=== PATIENT | female | born 1955 | race Caucasian/White ===

== ENCOUNTER → 2017-07-31 14:54 | Outpatient (CLI) | payer OTHER, SELFPAY ==
[2017-08-05 11:59] LABS: HPV Reflexed? NOT INDICATED
== END ==
PROVIDERS: Visit Provider Obstetrics & Gynecology
DX: Z12.4 Encounter for screening for malignant neoplasm of cervix (principal)
CPT/HCPCS: 88175; G0145

== ENCOUNTER → 2018-08-25 14:06 | Outpatient (CLI) | payer OTHER, SELFPAY ==
[2017-09-17 09:19] VITALS: BMI 36.9
[2018-08-31 15:28] LABS: HPV Reflexed? NOT INDICATED
== END ==
PROVIDERS: Visit Provider Obstetrics & Gynecology
DX: Z12.4 Encounter for screening for malignant neoplasm of cervix (principal)
CPT/HCPCS: 88175; G0145

== ENCOUNTER → 2018-09-15 07:15 | Outpatient (CLI) | payer OTHER, SELFPAY ==
--- NOTE | 2018-09-15 07:21 | BI_ITS ---
MAMMOGRAPHY - BILATERAL SCREENING REASON FOR EXAM: Female, 62 years old. Routine annual screening examination. PERTINENT HISTORY: Grandmother with breast cancer. TECHNIQUE: Digital bilateral breast arnaldo (3D mammographic acquisition) in the CC and MLO projections. 2-D mediolateral oblique (MLO) and craniocaudad (CC) views of both breasts were obtained. CAD: Full Field Digital Mammography with Computer Added Detection was performed. COMPARISON: Comparison is made with prior study dated April 14, 2017 and April 02, 2016. FINDINGS: Breast Composition: There are scattered areas of fibroglandular density. There are no dominant masses or suspicious calcifications. No other significant abnormalities are identified. There has been no significant change since the prior study. BI/SCREENING MAMM (CAD), BILAT IMPRESSION: Stable bilateral screening mammogram. Yearly follow-up mammogram recommended. (A) ASSESSMENT CATEGORY: BIRADS Category 1: Negative. A letter regarding these results will be sent to the patient by the facility within 30 days. Approximately 10% of breast cancers are not detected by mammography. A normal mammogram should not delay biopsy of a clinically suspicious abnormality. [id number] Electronically Signed: Anthony Luna, at 12:36 EDT , Service support ,
--- NOTE | 2018-09-15 08:17 | BD_ITS ---
STUDY: DUAL ENERGY X-RAY ABSORPTIOMETRY / DXA REASON FOR EXAM: Female, 62 years old. The patient is postmenopausal. TECHNIQUE: Bone Mineral Density (BMD) measurements of lumbar spine and bilateral hips were obtained. COMPARISON: None. FINDINGS: Lumbar Spine (L1-L4): g/cm2 (1.243) / T-score (0.5) / Z-score (1.9) Findings are suggestive of normal bone density with a low fracture risk. Left Femur Total: g/cm2 (0.936) / T-score (-0.6) / Z-score (0.4) Left Femoral Neck: g/cm2 (0.801) / T-score (-1.7) / Z-score (-0.4) Right Femur Total: g/cm2 (0.933) / T-score (-0.6) / Z-score (0.4) Right Femoral Neck: g/cm2 (0.835) / T-score (-1.5) / Z-score (-0.1) BD/Dexa Bone Density Study IMPRESSION: The patient is considered osteopenic as outlined below according to World Vasquez Organization (WHO) criteria with a moderate fracture risk. Reference Information: The T-score is the number of standard deviations above or below the standard which is normal for young adults at their peak bone mineral density. The World Health Organization (WHO) interprets the T-scores as follows: Above -1 Normal bone density Between -1 and -2.5 Osteopenia Equal to / or below -2.5 Osteoporosis As a practical clinical guideline, osteopenia may be graded as follows: Mild -1 through -1.5 Moderate -1.6 through -2.0 Severe -2.1 through -2.4 The Z-score is the number of standard deviations above or below age-matched controls. A Z-score of less than -1.5 would be considered abnormal. References: 1. NIH Osteoporosis and Related Bone Diseases http://www.osteo.org 2. International Society for Clinical Densitometry http://www.iscd.org 3. National Osteoporosis Foundation http://www.nof.org Electronically Signed: Anthony Luna, at 14:07 EDT , Service support ,
--- NOTE | 2018-09-15 08:35 | US_ITS ---
STUDY: ULTRASOUND OF THE FEMALE PELVIS - COMPLETE REASON FOR EXAM: Female, 62 years old. Cramping LMP: Not given TECHNIQUE: Transabdominal and Transvaginal TECHNICAL QUALITY: Adequate. COMPARISON: None. FINDINGS: The uterus is anteverted and is in a midline position. The uterus measures 6.6 x 2.6 x 3.6 cm. Normal uterine cervix. The endometrium measures 3.5 mm in thickness, and is hyperechoic. There is no demonstrated endometrial mass. There is no demonstrated myometrial mass. I.U.D. - The patient does not have an I.U.D. The right ovary is visualized. The right ovary measures 1.5 x 1.2 x 1.0 cm. There is no right ovarian cyst or ovarian mass. There is no visualized right adnexal mass or complex lesion. There is normal arterial and normal venous vascularity. The left ovary is visualized. The left ovary measures 1.8 x 1.3 x 0.8 cm. There is no left ovarian cyst or ovarian mass. There is no visualized left adnexal mass or complex lesion. There is normal arterial and normal venous vascularity. There is no fluid in the cul-de-sac. The pre void volume of the bladder was 727 ml. The post void volume of the bladder was ml. Polycystic ovary disease: No. US/Pelvic (Non ) IMPRESSION: No ultrasound evidence of acute pelvic pathology. Electronically Signed: Billy Perry MD at 12:11 EDT Tel , Service support ,
--- NOTE | 2018-09-15 08:36 | US_ITS ---
STUDY: ULTRASOUND OF THE FEMALE PELVIS - COMPLETE REASON FOR EXAM: Female, 62 years old. Cramping LMP: Not given TECHNIQUE: Transabdominal and Transvaginal TECHNICAL QUALITY: Adequate. COMPARISON: None. FINDINGS: The uterus is anteverted and is in a midline position. The uterus measures 6.6 x 2.6 x 3.6 cm. Normal uterine cervix. The endometrium measures 3.5 mm in thickness, and is hyperechoic. There is no demonstrated endometrial mass. There is no demonstrated myometrial mass. I.U.D. - The patient does not have an I.U.D. The right ovary is visualized. The right ovary measures 1.5 x 1.2 x 1.0 cm. There is no right ovarian cyst or ovarian mass. There is no visualized right adnexal mass or complex lesion. There is normal arterial and normal venous vascularity. The left ovary is visualized. The left ovary measures 1.8 x 1.3 x 0.8 cm. There is no left ovarian cyst or ovarian mass. There is no visualized left adnexal mass or complex lesion. There is normal arterial and normal venous vascularity. There is no fluid in the cul-de-sac. The pre void volume of the bladder was 727 ml. The post void volume of the bladder was ml. Polycystic ovary disease: No. US/Transvaginal Non- IMPRESSION: No ultrasound evidence of acute pelvic pathology. Electronically Signed: Billy Perry MD at 12:11 EDT Tel , Service support ,
== END ==
PROVIDERS: Family Provider Physician Assistant; PCP Physician Assistant; Referring Provider Obstetrics & Gynecology; Visit Provider Obstetrics & Gynecology
DX: Z13.820 Encounter for screening for osteoporosis (principal); Z78.0 Asymptomatic menopausal state; Z12.31 Encounter for screening mammogram for malignant neoplasm of breast; R14.0 Abdominal distension (gaseous); R10.9 Unspecified abdominal pain
CPT/HCPCS: 76830; 76856; 77063; 77067; 77080; 93976

== ENCOUNTER → 2020-08-24 16:57 | Outpatient (CLI) | payer OTHER, SELFPAY ==
[2019-09-19 13:15] VITALS: BMI 34.1
--- NOTE | 2020-08-24 17:30 | MRI_ITS ---
STUDY: MRI RIGHT ANKLE WITHOUT CONTRAST REASON FOR EXAM: Female, 64 years old. RIGHT MIDFOOT ARTHRITIS, Posterior tibial tendinitis/tear TECHNIQUE: Standardized fat and water weighted pulse sequences were obtained in all 3 orthogonal planes. COMPARISON: None. FINDINGS: Normal subcutis adipose space. Small to moderate size plantar calcaneal spur noted. A small ankle joint effusion is present. No visualized fracture or osteochondral defect. A small subchondral cyst is present in the talar dome on the far medial side, associated with mild to moderate narrowing. Normal remaining aspects of the talus. Normal posterior tibialis tendon. Normal flexor digitorum longus tendon. Normal flexor hallucis longus tendon. Normal peroneus longus and brevis tendons. Normal tibialis anterior tendon. Normal extensor hallucis longus tendon. Normal extensor digitorum longus tendons. Normal Achilles tendon and teno-osseous insertion. Normal plantar fascia. Normal plantar calcaneal tubercles. Normal intrinsic muscles of the rearfoot. Normal distal tibiofibular syndesmotic ligamentous complex. Normal lateral ligamentous complex. Normal subtalar ligaments and sinus tarsi. Normal deltoid ligamentous complexes. Normal plantar calcaneonavicular (spring) ligament. Normal subtalar articulations. Normal talonavicular articulation. Normal calcaneocuboid articulation. Normal navicular-cuneiform articulations. MRI/Lower Ext Joint Only (Routine) IMPRESSION: 1. Small to moderate size plantar calcaneal spur noted. 2. A small ankle joint effusion is present. 3. No visualized fracture or osteochondral defect. 4. A small subchondral cyst is present in the talar dome on the far medial side, associated with mild to moderate narrowing. Normal remaining aspects of the talus. Electronically Signed: Harpreet Mirza MD at 20:54 EDT , Service support ,
== END ==
PROVIDERS: PCP Physician Assistant; Referring Provider Podiatrist; Visit Provider Podiatrist
DX: M19.071 Primary osteoarthritis, right ankle and foot (principal); M77.31 Calcaneal spur, right foot; M76.829 Posterior tibial tendinitis, unspecified leg
CPT/HCPCS: 73721

== ENCOUNTER → 2020-10-15 07:56 | Outpatient (CLI) | payer OTHER, SELFPAY ==
[2020-09-18 13:40] VITALS: BMI 34.1
--- NOTE | 2020-10-15 08:02 | ECHOD_ITS ---
Reason For Study: AFIB Procedure This was a 2D Doppler, Color Flow transthoracic echocardiogram. Exam performed in department. Left Ventricle Normal LV size. Left ventricular systolic function is normal. The estimated ejection fraction is 58 %. Normal diastology for age. No regional wall motion abnormalities noted. Right Ventricle Normal RV size. Normal systolic function. Atria Normal left atrium. Normal right atrium. Mitral Valve Normal mitral valve. Tricuspid Valve Normal tricuspid valve. Mild (1+) tricuspid valve insufficiency. Pulmonary artery systolic pressure is 34 mmHg. Aortic Valve Normal aortic valve. Pulmonic Valve Normal pulmonic valve. Great Vessels Normal aortic root. The pulmonary artery is normal size. Normal inferior vena cava. Pericardium/Pleural No pericardial effusion. MMode/2D Measurements & Calculations LVIDd: 4.5 cm IVSd: 0.75 cm Ao root diam: 3.3 cm LVIDs: 3.2 cm LVPWd: 0.71 cm RVDd: 3.5 cm FS: 28.7 % LAV(MOD-bp): 61.5 ml LA A4 area: 18.8 cm2 LA dimension(2D): 4.5 cm LAV(MOD-bp) Indexed: 30.8 ml/m2 LAV(MOD-sp2): 67.7 ml LAV(MOD-sp4): 47.7 ml RA A4 area: 15.9 cm2 Time Measurements MV dec time: 0.18 sec Doppler Measurements & Calculations MV E max brian: 77.4 cm/sec Lat Peak E' Brian: 11.1 cm/sec Med Peak E' Brian: 8.0 cm/sec MV A max brian: 55.4 cm/sec E/E' lat: 7.0 E/E' med: 9.7 MV E/A: 1.4 Ao V2 max: 129.2 cm/sec LV V1 max: 122.6 cm/sec PA V2 max: 98.0 cm/sec Ao max P.7 mmHg LV V1 max P.0 mmHg PI end-d brian: 89.7 cm/sec TR max brian: 273.3 cm/sec TR max P.9 mmHg ECHO/Echo Complete Interpretation Summary Normal LV size. Left ventricular systolic function is normal. The estimated ejection fraction is 58 %. Normal diastology for age. Pulmonary artery systolic pressure is 34 mmHg. Ordering Physician: Jensen Agrawal Referring Physician: GANGA SIMON Performed By: Liliam Naik RDCS, RVT
== END ==
PROVIDERS: PCP Physician Assistant; Referring Provider Internal Medicine Cardiovascular Disease; Visit Provider Internal Medicine Cardiovascular Disease
DX: I48.0 Paroxysmal atrial fibrillation (principal); I10 Essential (primary) hypertension
CPT/HCPCS: 93306

== ENCOUNTER → 2021-01-15 14:03 | Outpatient (CLI) | payer OTHER, SELFPAY ==
[2020-09-18 13:40] VITALS: BMI 34.1
--- NOTE | 2021-01-15 14:24 | BD_ITS ---
STUDY: DUAL ENERGY X-RAY ABSORPTIOMETRY / DXA REASON FOR EXAM: Female, 65 years old. M85.89. Patient is postmenopausal. TECHNIQUE: Bone Mineral Density (BMD) measurements of lumbar spine and bilateral hips were obtained. COMPARISON: Comparison is made with prior study dated 09/15/2018. FINDINGS: Lumbar Spine (L1-L4): g/cm2 (1.057) / T-score (0.1) / Z-score (1.8) Findings are suggestive of normal bone density with a low fracture risk. Left Femur Total: g/cm2 (0.866) / T-score (-0.6) / Z-score (0.6) Left Femoral Neck: g/cm2 (0.688) / T-score (-1.4) / Z-score (0.0) Right Femur Total: g/cm2 (0.870) / T-score (-0.6) / Z-score (0.6) Right Femoral Neck: g/cm2 (0.697) / T-score (-1.4) / Z-score (0.1) The T-Scores on the most recent prior examination were: Lumbar Spine (L1-L4): There has been worsening of bone density since the previous examination. Left Femur Total: which represents a worsening of 0.6%. Right Femur Total: which represents an improvement of 0.1%. BD/Dexa Bone Density Study IMPRESSION: The patient is considered osteopenic as outlined below according to World Vasquez Organization (WHO) criteria with a low fracture risk. There has been worsening of bone density since the previous examination. Reference Information: The T-score is the number of standard deviations above or below the standard which is normal for young adults at their peak bone mineral density. The World Health Organization (WHO) interprets the T-scores as follows: Above -1 Normal bone density Between -1 and -2.5 Osteopenia Equal to / or below -2.5 Osteoporosis As a practical clinical guideline, osteopenia may be graded as follows: Mild -1 through -1.5 Moderate -1.6 through -2.0 Severe -2.1 through -2.4 The Z-score is the number of standard deviations above or below age-matched controls. A Z-score of less than -1.5 would be considered abnormal. References: 1. NIH Osteoporosis and Related Bone Diseases www osteo.org 2. International Society for Clinical Densitometry www iscd.org 3. National Osteoporosis Foundation www nof.org Electronically Signed: Anthony Luna MD at 20:00 EDT , Service support ,
== END ==
PROVIDERS: PCP Physician Assistant; Referring Provider Physician Assistant; Visit Provider Physician Assistant
DX: M85.80 Other specified disorders of bone density and structure, unspecified site (principal); Z78.0 Asymptomatic menopausal state
CPT/HCPCS: 77080

== ENCOUNTER → 2023-05-28 | Outpatient (CLI) | payer OTHER, SELFPAY ==
[2023-05-28 10:39] LABS: Absolute Lymphocyte Count 1.88 X10^3/uL (0.83-4.51); Absolute Neutrophil Count 2.5 X10^3/uL (2.0-7.7); Basophil# 0.04 X10^3/uL; Basophil% 0.8 % (0-1); Eosinophil# 0.17 X10^3/uL; Eosinophils% 3.3 % (0-5); Hematocrit 45.8 % (37-47); Hemoglobin 14.9 g/dL (12.0-15.0); Lymphocyte # 1.88 X10^3/ul (0.83-4.51); Lymphocyte % 36.8 % (19-41); Mean Corp Hgb Conc 32.5 g/dL (32-36); Mean Corpuscular Hgb 28.2 pg (27.0-32.0); Mean Corpuscular Volume 86.6 fL (81-99); Mean Platelet Vol. 10.1 fl (6.2-12.0); Monocyte# 0.53 X10^3/uL; Monocyte% 10.4 % (0-10); NRBC Flagged by Analyzer 0 % (0-5); Neutrophil # 2.48 X10^3/uL (2.7-7.7); Neutrophil % 48.5 % (47-70); Platelet Count 198 K/mm3 (150-450); RBC Distribution Width CV 13.7 % (11.6-14.6); RBC Distribution Width SD 43.8 fl (35.1-43.9); Red Blood Count 5.29 M/mm3 (4.2-5.4); White Blood Count 5.1 K/mm3 (4.4-11.0)
--- OUTSIDE RECORDS SUMMARY | 2023-05-28 10:40 | XMS RPT_ITS | CCD ---
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 Name Role Phone Romi WHALEY, Katty Stone Unavailable Unavailable Romi WHALEY, Katty Stone Unavailable Unavailable Anju Almaguer Unavailable Anju Almaguer Unavailable Unavailable Primary Care Provider Unavailabl e SIMON, GANGA J Admitting Unavailable SIMON, GANGA J Primary Care Unavailable SIMON, GANGA J Consulting Unavailable SIMON, GANGA J Attending Unavailable PROVIDER, UNKNOWN Consulting Unavailable SIMON, GANGA J Admitting Unavailable SIMON, GANGA J Primary Care Unavailable SIMON, GANGA J Consulting Unavailable SIMON, GANGA J Attending Unavailable PROVIDER, UNKNOWN Consulting Unavailable SIMON, GANGA J Attending Unavailable SIMON, GANGA J Admitting Unavailable SIMON, GANGA J Primary Care Unavailable SIMON, GANGA J Consulting Unavailable PROVIDER, UNKNOWN Consulting Unavailable Allergies Allergy Classification Reported Allergen(s) Allergy Type Date of Onset Reaction(s) Facility (5 sources) lisinopril drug allergy 11-22-2010 Other (See Comments) [facility] Work Phone: [phone] (4 sources) silver sulfADIAZINE; Translations: [SILVADENE CREAM] food allergy 11-22-2010 [employer] [facility] Work Phone: (8 sources) Sulfonamides (Antibiotic) drug allergy 11-22-2010 [employer] Work Phone: [phone] (8 sources) HCTZ drug allergy 11-22-2010 [employer] Work Phone: (1 source) silver sulfADIAZINE Drug Allergy 07-17-2016 Other (See Comments) [facility] Work Phone: Medications Current Medications Medication Drug Class(es) Dates Sig (Normalized) Sig (Original) flecainide acetate 50 mg oral tablet (20 sources) Antiarrhythmic Start: 05-05-2016 take 1 tablet by mouth twice daily flecainide (TAMBOCOR) 50 MG tablet TAKE 1 TABLET BY MOUTH TWICE A DAY 3 05/30/2016 Active Completed/Discontinued Medications Medication Drug Class(es) Dates Sig (Normalized) Sig (Original) aspirin 81 mg delayed release oral tablet (11 sources) Nonsteroidal Anti-inflammatory Drug Start: 03-13-2017 take 1 tablet by mouth once daily ASPIRIN EC 81 MG TBEC One tablet by mouth daily ASPIRIN [id number] Brea Cartwright PA-C Problems Active Problems Problem Classification Problem Date Documented Da te Episodic/Chronic Cardiac dysrhythmias (8 sources) Paroxysmal atrial fibrillation; Translations: [Atrial fibrillation] Onset: 11-22-2010 10-25-2015 Chronic Disorders of lipid metabolism (4 sources) Hyperlipidemia; Translations: [Hyperlipidemia, unspecified] Onset: 11-22-2010 11-22-2010 Chronic Essential hypertension (4 sources) Hypertensive disorder; Translations: [Essential (primary) hypertension] Onset: 11-22-2010 11-22-2010 Chronic Other nutritional; endocrine; and metabolic disorders (4 sources) Body mass index (BMI) 36.0-36.9, adult; Translations: [Body mass index (BMI) 36.0-36.9, adult] Onset: 10-21-2013 10-21-2013 Chronic Unclassified (6 sources) Long-term drug therapy; Translations: [Other oysterman (current) drug therapy] Onset: 04-19-2013 03-11-2017 Past or Other Problems Problem Classification Problem Date Documented Da te Episodic/Chronic Nonspecific chest pain (4 sources) Chest pain; Translations: [Other chest pain] Onset: 04-22-2016 04-22-2016 Episodic Other aftercare (1 source) Long-term (current) use of other medications; Translations: [Long-term (current) use of other medications] Onset: 04-19-2013 04-19-2013 Episodic Unclassified (4 sources) FH: Hypertension; Translations: [Family history of ischemic heart disease and other diseases of the circulatory system] 07-10-2014 Episodic Results Test Name Value Interpretation Reference Range Facil ity Vital Signs Date Time Vital Sign Value Performing Clinician Darrick pratt 03-13-2017 11:36-0400 BMI (Body Mass Index) 36.11 kg/m2 [facility] Work Phone: 03-13-2017 11:36-0400 BP Diastolic 78 mm[Hg] Anju Almaguer [facility] Work Phone: 03-13-2017 11:36-0400 BP Systolic 120 mm[Hg] [facility] Work Phone: 03-13-2017 11:36-0400 Height 165.1 cm [facility] Work Phone: 03-13-2017 11:36-0400 Pulse (Heart Rate) 54 /min [facility] Work Phone: 03-13-2017 11:36-0400 Respiratory Rate 18 /min [facility] Work Phone: 03-13-2017 11:36-0400 Weight 98.43 kg [facility] Work Phone: 09-04-2016 13:32-0400 BMI (Body Mass Index) 35.01 kg/m2 Katty Llanos RN [facility] Work Phone: 09-04-2016 13:32-0400 BP Diastolic 70 mm[Hg] Katty Llanos RN [facility] Work Phone: 09-04-2016 13:32-0400 BP Systolic 130 mm[Hg] Katty Llanos RN [facility] Work Phone: 09-04-2016 13:32-0400 Height 165.1 cm Katty lLanos RN [facility] Work Phone: 09-04-2016 13:32-0400 Pulse (Heart Rate) 64 /min Katty Llanos RN [facility] Work Phone: 09-04-2016 13:32-0400 Respiratory Rate 20 /min Katty Llanos RN [facility] Work Phone: 09-04-2016 13:32-0400 Weight 95.44 kg Katty Llanos RN [facility] Work Phone: 04-22-2016 16:28-0500 Heart rate 65 /min Katty Llanos RN [facility] Work Phone: 04-22-2016 15:15-0500 BSA (Body Surface Area) 2.01 m2 Katty Llanos RN [facility] Work Phone: 04-22-2016 15:15-0500 Pulse Oximetry 98 % Katty Llanos RN [facility] Work Phone: 01-20-2014 08:53-0400 Heart rate 419 ms Katty Llanos RN [facility] Work Phone: Encounters Encounter Date Encounter Type Care Provider Facility Start: 02-05-2023 End: 02-05-2023 ambulatory GANGA Raymond SIMON [facility] Start: 01-15-2023 End: 01-15-2023 ambulatory [facility] Start: 01-06-2023 End: 01-06-2023 [facility] Start: 07-19-2019 End: 07-19-2019 Emergency department patient visit [facility] Emergency Dept Procedures Date Procedure Procedure Detail Performing Clinician Start: 03-13-2017 End: 03-13-2017 SUPPORT MERCHANDISER Brea Cartwright PA-C Work Phone: Start: 03-13-2017 End: 03-13-2017 Follow Up Appt 6 months Brea henderson PA-C Work Phone: Start: 09-04-2016 End: 09-04-2016 Follow Up Appt 6 months Liliana Phan Start: 09-04-2016 End: 09-04-2016 DAVINA Agrawal MD Start: 09-04-2016 End: 09-04-2016 Follow Up Appt 6 months Liliana Phan Start: 09-04-2016 End: 09-04-2016 DAVINA Agrawal MD Start: 04-25-2016 End: 04-25-2016 Nurse, Teaching, Wound Check (no charge) Jensen Agrawal MD Start: 04-25-2016 End: 04-25-2016 Nurse, Teaching, Wound Check (no charge) Jensen Agrawal MD Start: 04-22-2016 End: 04-22-2016 Dietary management education, guidance, and counseling Katty Llanos RN Start: 04-22-2016 End: 04-25-2016 *BMP Peace Chan [employer] Work Phone: Start: 04-22-2016 End: 04-25-2016 aPTT in Platelet poor plasma by Coagulation assay Peace Chan NP Work Phone: Start: 04-22-2016 End: 04-25-2016 CBC W Auto Differential panel - Blood Peace Chan NP Work Phone: Start: 04-22-2016 End: 02-25-2017 Chest x-ray Peace Chan NP Work Phone: Start: 04-22-2016 End: 04-22-2016 Ecg routine ecg w/least 12 lds w/i&r Peace Chan NP Work Phone: Start: 04-22-2016 End: 04-25-2016 INR in Platelet poor plasma by Coagulation assay Peace Chan NP Work Phone: Start: 04-22-2016 End: 02-25-2017 Left Heart Cath Peace Chan NP Work Phone: Start: 04-22-2016 End: 04-25-2016 *BMP Peace Chan NP Work Phone: Start: 04-22-2016 End: 04-25-2016 aPTT Peace Chan NP Work Phone: Start: 04-22-2016 End: 04-25-2016 CBC W Auto Differential panel - Blood Peace Chan [employer] O[employer]ATOR Work Phone: Start: 04-22-2016 End: 04-25-2016 Coagulation factor induced.INR assay in platelet poor plasma Peace Chan [employer] OPERATOR Work Phone: Start: 04-22-2016 End: 04-22-2016 Electrocardiogram, complete Peace gil [employer] OPERATOR Work Phone: Start: 10-25-2015 End: 10-25-2015 Follow Up Appt 1 year Jensen Agrawal MD Start: 10-25-2015 End: 10-25-2015 DAVINA Agrawal MD Start: 10-25-2015 End: 10-25-2015 Follow Up Appt 1 year Jensen Agrawal MD Start: 10-25-2015 End: 10-25-2015 DAVINA Agrawal MD Start: 10-20-2014 End: 10-20-2014 DILLON Agrawal MD Start: 10-20-2014 End: 10-21-2014 Documentation of current medications Jensen Agrawal MD Start: 10-20-2014 End: 10-20-2014 Follow Up Appt 1 year Jensen Agrawal MD Start: 10-20-2014 End: 10-20-2014 DILLON Agrawal MD Start: 10-20-2014 End: 10-21-2014 Documentation of current medications Jensen Agrawal MD Start: 10-20-2014 End: 10-20-2014 Follow Up Appt 1 year Jensen Agrawal MD Start: 07-10-2014 End: 07-11-2014 *BMP Brea Cartwright PA-C Work Phone: Start: 07-10-2014 End: 07-11-2014 *CBC with Differential Brea shirley PA-C Work Phone: Start: 07-10-2014 End: 07-10-2014 SUPPORT MERCHANDISER Brea Cartwright PA-C Work Phone: Start: 07-10-2014 End: 07-11-2014 Documentation of current medications Brea Cartwright PA-C Work Phone: Start: 07-10-2014 End: 07-10-2014 Follow Up Appt 3 months Brea henderson PA-C Work Phone: Start: 07-10-2014 End: 07-10-2014 Follow Up BP Check Brea Cartwright PA-C Work Phone: Start: 07-10-2014 End: 07-11-2014 Magnesium [Mass/volume] in Serum or Plasma Brea Cartwright PA-C Work Phone: Start: 07-10-2014 End: 07-11-2014 Thyrotropin [Units/volume] in Serum or Plasma Brea Cartwright PA-C Work Phone: Start: 07-10-2014 End: 07-11-2014 *BMP Brea Cartwright PA-C Work Phone: Start: 07-10-2014 End: 07-11-2014 *CBC with Differential Brea shirley PA-C Work Phone: Start: 07-10-2014 End: 07-10-2014 SUPPORT MERCHANDISER Brea Cartwright PA-C Work Phone: Start: 07-10-2014 End: 07-11-2014 Documentation of current medications Brea Cartwright PA-C Work Phone: Start: 07-10-2014 End: 07-10-2014 Follow Up Appt 3 months Brea henderson PA-C Work Phone: Start: 07-10-2014 End: 07-10-2014 Follow Up BP Check Brea Cartwright PA-C Work Phone: Start: 07-10-2014 End: 07-11-2014 Magnesium Brea Cartwright PA-C Work Phone: Start: 07-10-2014 End: 07-11-2014 Thyroid stimulating hormone (TSH) Brea Cartwright PA-C Work Phone: Start: 01-20-2014 End: 07-10-2014 *BMP Brea Cartwright PA-C Work Phone: Start: 01-20-2014 End: 07-10-2014 CBC W Auto Differential panel - Blood Brea Cartwright PA-C Work Phone: Start: 01-20-2014 End: 01-20-2014 SUPPORT MERCHANDISER Brea Cartwright PA-C Work Phone: Start: 01-20-2014 End: 01-20-2014 Ecg routine ecg w/least 12 lds w/i&r Brea Cartwright PA-C Work Phone: Start: 01-20-2014 End: 01-20-2014 Follow Up Appt 6 months Brea henderson PA-C Work Phone: Start: 01-20-2014 End: 07-10-2014 Thyrotropin [Units/volume] in Serum or Plasma Brea Cartwright PA-C Work Phone: Start: 01-20-2014 End: 07-10-2014 *BMP Brea Cartwright PA-C Work Phone: Start: 01-20-2014 End: 07-10-2014 CBC W Auto Differential panel - Blood Brea Cartwright PA-C Work Phone: Start: 01-20-2014 End: 01-20-2014 SUPPORT MERCHANDISER Brea Cartwright PA-C Work Phone: Start: 01-20-2014 End: 01-20-2014 Electrocardiogram, complete Brea Tang PA-C Work Phone: Start: 01-20-2014 End: 01-20-2014 Follow Up Appt 6 months Brea henderson PA-C Work Phone: Start: 01-20-2014 End: 07-10-2014 Thyroid stimulating hormone (TSH) Brea Cartwright PA-C Work Phone: Start: 10-21-2013 End: 10-21-2013 Follow Up Appt 3 months Liliana Phan Start: 10-21-2013 End: 10-21-2013 DAVINA Agrawal MD Start: 10-21-2013 End: 10-21-2013 Follow Up Appt 3 months Liliana Phan Start: 10-21-2013 End: 10-21-2013 DAVINA Agrawal MD Start: 10-06-2013 End: 07-11-2014 *Hepatic Function Panel Brea henderson PA-C Work Phone: Start: 10-06-2013 End: 07-11-2014 Lipid 1996 panel - Serum or Plasma Brea Cartwright PA-C Work Phone: Start: 10-06-2013 End: 07-11-2014 *Hepatic Function Panel Brea henderson PA-C Work Phone: Start: 10-06-2013 End: 07-11-2014 Lipid panel [AGGREGATE] Brea henderson PA-C Work Phone: Start: 03-29-2013 End: 04-15-2013 *BMP Brea Cartwright PA-C Work Phone: Start: 03-29-2013 End: 04-15-2013 *Hepatic Function Panel Brea henderson PA-C Work Phone: Start: 03-29-2013 End: 03-29-2013 SUPPORT MERCHANDISER Brea Cartwright PA-C Work Phone: Start: 03-29-2013 End: 03-29-2013 Ecg routine ecg w/least 12 lds w/i&r Brea Cartwright PA-C Work Phone: Start: 03-29-2013 End: 03-29-2013 Follow Up Appt 6 months Brea henderson PA-C Work Phone: Start: 03-29-2013 End: 04-15-2013 Lipid 1996 panel - Serum or Plasma Brea Cartwright PA-C Work Phone: Start: 03-29-2013 End: 04-15-2013 *BMP Brea Cartwright PA-C Work Phone: Start: 03-29-2013 End: 04-15-2013 *Hepatic Function Panel Brea henderson PA-C Work Phone: Start: 03-29-2013 End: 03-29-2013 SUPPORT MERCHANDISER Brea Cartwright PA-C Work Phone: Start: 03-29-2013 End: 03-29-2013 Electrocardiogram, complete Brea Tang PA-C Work Phone: Start: 03-29-2013 End: 03-29-2013 Follow Up Appt 6 months Brea henderson PA-C Work Phone: Start: 03-29-2013 End: 04-15-2013 Lipid panel [AGGREGATE] Brea henderson PA-C Work Phone: Start: 09-30-2012 End: 09-30-2012 Follow Up Appt 6 months Liliana Phan Start: 09-30-2012 End: 09-30-2012 Follow Up Appt 6 months Liliana Phan Start: 08-11-2012 End: 03-29-2013 *Hepatic Function Panel Francisco Javier Westbrook MD Start: 08-11-2012 End: 03-29-2013 Lipid 1996 panel - Serum or Plasma Francisco Javier Westbrook MD Start: 08-11-2012 End: 03-29-2013 *Hepatic Function Panel Francisco Javier Westbrook MD Start: 08-11-2012 End: 03-29-2013 Lipid panel [AGGREGATE] Francisco Javier Westbrook MD Start: 03-25-2012 End: 05-13-2012 *BMP Francisco Javier Westbrook MD Start: 03-25-2012 End: 05-13-2012 *Hepatic Function Panel Francisco Javier Westbrook MD Start: 03-25-2012 End: 03-25-2012 Ecg routine ecg w/least 12 lds w/i&r Francisco Javier Westbrook MD Start: 03-25-2012 End: 03-25-2012 Follow Up Appt 6 months Francisco Javier Westbrook MD Start: 03-25-2012 End: 05-13-2012 Lipid 1996 panel - Serum or Plasma Francisco Javier Westbrook MD Start: 03-25-2012 End: 05-13-2012 Magnesium [Mass/volume] in Serum or Plasma Francisco Javier Westbrook MD Start: 03-25-2012 End: 05-13-2012 *BMP Francisco Javier Westbrook MD Start: 03-25-2012 End: 05-13-2012 *Hepatic Function Panel Francisco Javier Westbrook MD Start: 03-25-2012 End: 03-25-2012 Electrocardiogram, complete Francisco Javier Westbrook MD Start: 03-25-2012 End: 03-25-2012 Follow Up Appt 6 months Francisco Javier Westbrook MD Start: 03-25-2012 End: 05-13-2012 Lipid panel [AGGREGATE] Francisco Javier Westbrook MD Start: 03-25-2012 End: 05-13-2012 Magnesium Francisco Javier Westbrook MD Start: 12-11-2011 End: 12-11-2011 Follow Up Appt 3 months Francisco Javier Westbrook MD Start: 12-11-2011 End: 12-11-2011 Follow Up Appt 3 months Francisco Javier Westbrook MD Start: 10-30-2011 End: 11-24-2011 *BMP Francisco Javier Westbrook MD Start: 10-30-2011 End: 11-24-2011 aPTT in Platelet poor plasma by Coagulation assay Francisco Javier Westbrook MD Start: 10-30-2011 End: 11-24-2011 Complete sleep workup (PSG,CPAP as indicated) & Follow up Francisco Javier Westbrook MD Start: 10-30-2011 End: 11-04-2011 Echocardiography Francisco Javier Westbrook MD Start: 10-30-2011 End: 10-30-2011 Follow Up Appt 6 weeks Francisco Javier Westbrook MD Start: 10-30-2011 End: 11-24-2011 INR in Platelet poor plasma by Coagulation assay Francisco Javier Westbrook MD Start: 10-30-2011 End: 11-24-2011 Magnesium [Mass/volume] in Serum or Plasma Francisco Javier Westbrook MD Start: 10-30-2011 End: 11-24-2011 Thyrotropin [Units/volume] in Serum or Plasma Francisco Javier Westbrook MD Start: 10-30-2011 End: 11-24-2011 Thyroxine (T4) [Mass/volume] in Serum or Plasma Francisco Javier Westbrook MD Start: 10-30-2011 End: 11-24-2011 *XENIA Westbrook MD Start: 10-30-2011 End: 11-24-2011 aPTT Francisco Javier Westbrook MD Start: 10-30-2011 End: 11-24-2011 Coagulation factor induced.INR assay in platelet poor plasma Francisco Javier Westbrook MD Start: 10-30-2011 End: 11-24-2011 Complete sleep workup (PSG,CPAP as indicated) & Follow up Francisco Javier Westbrook MD Start: 10-30-2011 End: 11-04-2011 Echocardiography Francisco Javier Westbrook MD Start: 10-30-2011 End: 10-30-2011 Follow Up Appt 6 weeks Francisco Javier Westbrook MD Start: 10-30-2011 End: 11-24-2011 Magnesium Francisco Javier Westbrook MD Start: 10-30-2011 End: 11-24-2011 Thyroid stimulating hormone (TSH) Francisco Javier Westbrook MD Start: 10-30-2011 End: 11-24-2011 Thyroxine (T4) Francisco Javier Westbrook MD Start: 07-14-2011 End: 08-01-2011 *XENIA Westbrook MD Start: 07-14-2011 End: 08-01-2011 *Hepatic Function Panel Francisco Javier Westbrook MD Start: 07-14-2011 End: 07-14-2011 Follow Up Appt 6 months Francisco Javier Westbrook MD Start: 07-14-2011 End: 08-01-2011 Lipid 1996 panel - Serum or Plasma Francisco Javier Westbrook MD Start: 07-14-2011 End: 08-01-2011 Magnesium [Mass/volume] in Serum or Plasma Francisco Javier Westbrook MD Start: 07-14-2011 End: 08-01-2011 *BMP Francisco Javier Westbrook MD Start: 07-14-2011 End: 08-01-2011 *Hepatic Function Panel Francisco Javier Westbrook MD Start: 07-14-2011 End: 07-14-2011 Follow Up Appt 6 months Francisco Javier Westbrook MD Start: 07-14-2011 End: 08-01-2011 Lipid panel [AGGREGATE] Francisco Javier Westbrook MD Start: 07-14-2011 End: 08-01-2011 Magnesium Francisco Javier Westbrook MD Plan of Treatment Date Care Activity Detail Author Start: 02-06-2019 Influenza vaccination Flu vaccine (#1) [facility] Work Phone: Start: 09-17-2017 End: 09-17-2017 Appointment Appointment [facility] Work Phone: Start: 03-13-2017 End: 03-13-2017 SUPPORT MERCHANDISER SUPPORT MERCHANDISER [facility] Work Phone: Start: 03-13-2017 End: 03-13-2017 Follow Up Appt 6 months Follow Up Appt 6 months [facility] Work Phone: Start: 03-13-2017 End: 03-13-2017 Appointment Appointment [facility] Work Phone: Start: 09-04-2016 End: 09-04-2016 Follow Up Appt 6 months Follow Up Appt 6 months [facility] Work Phone: Start: 09-04-2016 End: 09-04-2016 MMM MMM [facility] Work Phone: Start: 09-04-2016 End: 09-04-2016 Follow Up Appt 6 months Follow Up Appt 6 months [facility] Work Phone: Start: 09-04-2016 End: 09-04-2016 MMM MMM [facility] Work Phone: Start: 04-22-2016 End: 04-25-2016 *BMP *BMP [facility] Work Phone: Start: 04-22-2016 End: 04-25-2016 aPTT Coag time (Bld) *PTT-Partial Thromboplastin Time [facility] Work Phone: Start: 04-22-2016 End: 04-25-2016 CBC W Auto Differential panel - Blood *CBC without Diff [facility] Work Phone: Start: 04-22-2016 End: 02-25-2017 Chest x-ray X-Ray, Chest, PA & Lateral [facility] Work Phone: Start: 04-22-2016 End: 04-22-2016 Ecg routine ecg w/least 12 lds w/i&r EKG (In office) [facility] Work Phone: Start: 04-22-2016 End: 04-25-2016 INR Coag RelTime (PPP) *PT/INR [facility] Work Phone: Start: 04-22-2016 End: 02-25-2017 Left Heart Cath Left Heart Cath [facility] Work Phone: Start: 04-22-2016 End: 04-25-2016 *BMP *BMP [facility] Work Phone: Start: 04-22-2016 End: 04-25-2016 aPTT *PTT-Partial Thromboplastin Time [facility] Work Phone: Start: 04-22-2016 End: 04-25-2016 CBC W Auto Differential panel - Blood *CBC without Diff [facility] Work Phone: Start: 04-22-2016 End: 04-22-2016 Chest x-ray X-Ray, Chest, PA & Lateral [facility] Work Phone: Start: 04-22-2016 End: 04-25-2016 Coagulation factor induced.INR assay in platelet poor plasma *PT/INR [facility] Work Phone: Start: 04-22-2016 End: 04-22-2016 Electrocardiogram, complete EKG (In office) [facility] Work Phone: Start: 04-22-2016 End: 04-22-2016 Left Heart Cath Left Heart Cath [facility] Work Phone: Start: 10-25-2015 End: 10-25-2015 Follow Up Appt 1 year Follow Up Appt 1 year [facility] Work Phone: Start: 10-25-2015 End: 10-25-2015 MMM MMM [facility] Work Phone: Start: 10-25-2015 End: 10-25-2015 Follow Up Appt 1 year Follow Up Appt 1 year [facility] Work Phone: Start: 10-25-2015 End: 10-25-2015 MMM MMM [facility] Work Phone: Start: 10-20-2014 End: 10-20-2014 SUPPORT MERCHANDISER SUPPORT MERCHANDISER [facility] Work Phone: Start: 10-20-2014 End: 10-20-2014 Follow Up Appt 1 year Follow Up Appt 1 year [facility] Work Phone: Start: 10-20-2014 End: 10-20-2014 SUPPORT MERCHANDISER SUPPORT MERCHANDISER [facility] Work Phone: Start: 10-20-2014 End: 10-20-2014 Follow Up Appt 1 year Follow Up Appt 1 year [facility] Work Phone: Start: 07-10-2014 End: 07-11-2014 *BMP *BMP [facility] Work Phone: Start: 07-10-2014 End: 07-11-2014 *CBC with Differential *CBC with Differential [facility] Work Phone: Start: 07-10-2014 End: 07-10-2014 SUPPORT MERCHANDISER SUPPORT MERCHANDISER [facility] Work Phone: Start: 07-10-2014 End: 07-10-2014 Follow Up Appt 3 months Follow Up Appt 3 months [facility] Work Phone: Start: 07-10-2014 End: 07-10-2014 Follow Up BP Check Follow Up BP Check [facility] Work Phone: Start: 07-10-2014 End: 07-11-2014 Magnesium mass conc *Magnesium [facility] Work Phone: Start: 07-10-2014 End: 07-11-2014 Thyrotropin Qn *TSH [facility] Work Phone: Start: 07-10-2014 End: 07-11-2014 *BMP *BMP [facility] Work Phone: Start: 07-10-2014 End: 07-11-2014 *CBC with Differential *CBC with Differential [facility] Work Phone: Start: 07-10-2014 End: 07-10-2014 SUPPORT MERCHANDISER SUPPORT MERCHANDISER [facility] Work Phone: Start: 07-10-2014 End: 07-10-2014 Follow Up Appt 3 months Follow Up Appt 3 months [facility] Work Phone: Start: 07-10-2014 End: 07-10-2014 Follow Up BP Check Follow Up BP Check [facility] Work Phone: Start: 07-10-2014 End: 07-11-2014 Magnesium *Magnesium [facility] Work Phone: Start: 07-10-2014 End: 07-11-2014 Thyroid stimulating hormone (TSH) *TSH [facility] Work Phone: Start: 01-20-2014 End: 07-10-2014 *BMP *BMP [facility] Work Phone: Start: 01-20-2014 End: 07-10-2014 CBC W Auto Differential panel - Blood *CBC without Diff [facility] Work Phone: Start: 01-20-2014 End: 01-20-2014 SUPPORT MERCHANDISER SUPPORT MERCHANDISER [facility] Work Phone: Start: 01-20-2014 End: 01-20-2014 Ecg routine ecg w/least 12 lds w/i&r EKG (In office) [facility] Work Phone: Start: 01-20-2014 End: 01-20-2014 Follow Up Appt 6 months Follow Up Appt 6 months [facility] Work Phone: Start: 01-20-2014 End: 07-10-2014 Thyrotropin Qn *TSH [facility] Work Phone: Start: 01-20-2014 End: 07-10-2014 *BMP *BMP [facility] Work Phone: Start: 01-20-2014 End: 07-10-2014 CBC W Auto Differential panel - Blood *CBC without Diff [facility] Work Phone: Start: 01-20-2014 End: 01-20-2014 SUPPORT MERCHANDISER SUPPORT MERCHANDISER [facility] Work Phone: Start: 01-20-2014 End: 01-20-2014 Electrocardiogram, complete EKG (In office) [facility] Work Phone: Start: 01-20-2014 End: 01-20-2014 Follow Up Appt 6 months Follow Up Appt 6 months [facility] Work Phone: Start: 01-20-2014 End: 07-10-2014 Thyroid stimulating hormone (TSH) *TSH [facility] Work Phone: Start: 10-21-2013 End: 10-21-2013 Follow Up Appt 3 months Follow Up Appt 3 months [facility] Work Phone: Start: 10-21-2013 End: 10-21-2013 MMM MMM [facility] Work Phone: Start: 10-21-2013 End: 10-21-2013 Follow Up Appt 3 months Follow Up Appt 3 months [facility] Work Phone: Start: 10-21-2013 End: 10-21-2013 MMM MMM [facility] Work Phone: Start: 10-06-2013 End: 07-11-2014 *Hepatic Function Panel *Hepatic Function Panel [facility] Work Phone: Start: 10-06-2013 End: 07-11-2014 Lipid 1996 panel *Lipid Profile CC PCP [facility] Work Phone: Start: 10-06-2013 End: 07-11-2014 *Hepatic Function Panel *Hepatic Function Panel [facility] Work Phone: Start: 10-06-2013 End: 07-11-2014 Lipid panel [AGGREGATE] *Lipid Profile CC PCP [facility] Work Phone: Start: 03-29-2013 End: 04-15-2013 *BMP *BMP [facility] Work Phone: Start: 03-29-2013 End: 04-15-2013 *Hepatic Function Panel *Hepatic Function Panel [facility] Work Phone: Start: 03-29-2013 End: 03-29-2013 SUPPORT MERCHANDISER SUPPORT MERCHANDISER [facility] Work Phone: Start: 03-29-2013 End: 03-29-2013 Ecg routine ecg w/least 12 lds w/i&r EKG (In office) [facility] Work Phone: Start: 03-29-2013 End: 03-29-2013 Follow Up Appt 6 months Follow Up Appt 6 months [facility] Work Phone: Start: 03-29-2013 End: 04-15-2013 Lipid 1996 panel *Lipid Profile CC PCP [facility] Work Phone: Start: 03-29-2013 End: 04-15-2013 *BMP *BMP [facility] Work Phone: Start: 03-29-2013 End: 04-15-2013 *Hepatic Function Panel *Hepatic Function Panel [facility] Work Phone: Start: 03-29-2013 End: 03-29-2013 SUPPORT MERCHANDISER SUPPORT MERCHANDISER [facility] Work Phone: Start: 03-29-2013 End: 03-29-2013 Electrocardiogram, complete EKG (In office) [facility] Work Phone: Start: 03-29-2013 End: 03-29-2013 Follow Up Appt 6 months Follow Up Appt 6 months [facility] Phone: Start: 03-29-2013 End: 04-15-2013 Lipid panel [AGGREGATE] *Lipid Profile CC PCP [facility] Work Phone: Start: 09-30-2012 End: 09-30-2012 Follow Up Appt 6 months Follow Up Appt 6 months [facility] Work Phone: Start: 09-30-2012 End: 09-30-2012 Follow Up Appt 6 months Follow Up Appt 6 months [facility] Work Phone: Start: 08-11-2012 End: 03-29-2013 *Hepatic Function Panel *Hepatic Function Panel [facility] Work Phone: Start: 08-11-2012 End: 03-29-2013 Lipid 1996 panel *Lipid Profile [facility] Phone: Start: 08-11-2012 End: 03-29-2013 *Hepatic Function Panel *Hepatic Function Panel [facility] Work Phone: Start: 08-11-2012 End: 03-29-2013 Lipid panel [AGGREGATE] *Lipid Profile [facility] Work Phone: Start: 03-25-2012 End: 05-13-2012 *BMP *BMP [facility] Work Phone: Start: 03-25-2012 End: 05-13-2012 *Hepatic Function Panel *Hepatic Function Panel [facility] [employer] Work Phone: Start: 03-25-2012 End: 03-25-2012 Ecg routine ecg w/least 12 lds w/i&r EKG (In office) [facility] Work Phone: Start: 03-25-2012 End: 03-25-2012 Follow Up Appt 6 months Follow Up Appt 6 months [facility] Work Phone: Start: 03-25-2012 End: 05-13-2012 Lipid 1996 panel *Lipid Profile [facility] Phone: Start: 03-25-2012 End: 05-13-2012 Magnesium mass conc *Magnesium [facility] Work Phone: Start: 03-25-2012 End: 05-13-2012 *BMP *BMP [facility] Work Phone: Start: 03-25-2012 End: 05-13-2012 *Hepatic Function Panel *Hepatic Function Panel [facility] Phone: Start: 03-25-2012 End: 03-25-2012 Electrocardiogram, complete EKG (In office) [facility] Work Phone: Start: 03-25-2012 End: 03-25-2012 Follow Up Appt 6 months Follow Up Appt 6 months [facility] Work Phone: Start: 03-25-2012 End: 05-13-2012 Lipid panel [AGGREGATE] *Lipid Profile [facility] Phone: Start: 03-25-2012 End: 05-13-2012 Magnesium *Magnesium [facility] Work Phone: Start: 12-11-2011 End: 12-11-2011 Follow Up Appt 3 months Follow Up Appt 3 months [facility] Work Phone: Start: 12-11-2011 End: 12-11-2011 Follow Up Appt 3 months Follow Up Appt 3 months [facility] Work Phone: Start: 10-30-2011 End: 11-24-2011 *BMP *BMP [facility] Work Phone: Start: 10-30-2011 End: 11-24-2011 aPTT Coag time (Bld) *PTT-Partial Thromboplastin Time [facility] Work Phone: Start: 10-30-2011 End: 10-30-2011 Complete sleep workup (PSG,CPAP as indicated) & Follow up Complete sleep workup (PSG,CPAP as indicated) & Follow up [facility] Work Phone: Start: 10-30-2011 End: 10-30-2011 Echocardiography Echocardiogram (complete) [facility] Work Phone: Start: 10-30-2011 End: 10-30-2011 Follow Up Appt 6 weeks Follow Up Appt 6 weeks [facility] Work Phone: Start: 10-30-2011 End: 11-24-2011 INR Coag RelTime (PPP) *PT/INR [facility] Work Phone: Start: 10-30-2011 End: 11-24-2011 Magnesium mass conc *Magnesium [facility] Work Phone: Start: 10-30-2011 End: 11-24-2011 T4 mass conc *T4 (Total) [facility] Work Phone: Start: 10-30-2011 End: 11-24-2011 Thyrotropin Qn *TSH [facility] Work Phone: Start: 10-30-2011 End: 11-24-2011 *BMP *BMP [facility] Work Phone: Start: 10-30-2011 End: 11-24-2011 aPTT *PTT-Partial Thromboplastin Time [facility] Work Phone: Start: 10-30-2011 End: 11-24-2011 Coagulation factor induced.INR assay in platelet poor plasma *PT/INR [facility] Work Phone: Start: 10-30-2011 End: 10-30-2011 Complete sleep workup (PSG,CPAP as indicated) & Follow up Complete sleep workup (PSG,CPAP as indicated) & Follow up [facility] Work Phone: Start: 10-30-2011 End: 10-30-2011 Echocardiography Echocardiogram (complete) [facility] Work Phone: Start: 10-30-2011 End: 10-30-2011 Follow Up Appt 6 weeks Follow Up Appt 6 weeks [facility] Work Phone: Start: 10-30-2011 End: 11-24-2011 Magnesium *Magnesium [facility] Work Phone: Start: 10-30-2011 End: 11-24-2011 Thyroid stimulating hormone (TSH) *TSH [facility] Work Phone: Start: 10-30-2011 End: 11-24-2011 Thyroxine (T4) *T4 (Total) [facility] Work Phone: Start: 07-14-2011 End: 08-01-2011 *BMP *BMP [facility] Work Phone: Start: 07-14-2011 End: 08-01-2011 *Hepatic Function Panel *Hepatic Function Panel [facility] Work Phone: Start: 07-14-2011 End: 07-14-2011 Follow Up Appt 6 months Follow Up Appt 6 months [facility] Work Phone: Start: 07-14-2011 End: 08-01-2011 Lipid 1996 panel *Lipid Profile [facility] Work Phone: Start: 07-14-2011 End: 08-01-2011 Magnesium mass conc *Magnesium [facility] Work Phone: Start: 07-14-2011 End: 08-01-2011 *BMP *BMP [facility] Work Phone: Start: 07-14-2011 End: 08-01-2011 *Hepatic Function Panel *Hepatic Function Panel [facility] Work Phone: Start: 07-14-2011 End: 07-14-2011 Follow Up Appt 6 months Follow Up Appt 6 months [facility] Work Phone: Start: 07-14-2011 End: 08-01-2011 Lipid panel [AGGREGATE] *Lipid Profile [facility] Work Phone: Start: 07-14-2011 End: 08-01-2011 Magnesium *Magnesium [facility] Work Phone: Start: 2006 Breast cancer screen Breast cancer screen [facility] Work Phone: Start: 2006 Colon cancer screen colonoscopy Colon cancer screen colonoscopy [facility] Work Phone: Start: 2006 Shingles Vaccine (1 of 2) Shingles Vaccine (1 of 2) [facility] Work Phone: Start: 1996 Lipid screen Lipid screen [facility] Work Phone: Start: 1977 Cervical cancer screen Cervical cancer screen [facility] Work Phone: Start: 11-09-1971 HIV screen HIV screen [facility] Work Phone: Start: 11-09-1967 DTaP/Tdap/Td vaccine (1 - Tdap) DTaP/Tdap/Td vaccine (1 - Tdap) [facility] Work Phone: Start: 1956 Hepatitis C screen Hepatitis C screen [facility] Work Phone: Payers Date Payer Category Payer Private Health Insurance LEE J[employer] xxxxxxxxxx 2016-Present [phone] [address] [place] [address] xxxxxxxxxx [id number] 1955 Unknown [id number] 1956 Unknown [id number] 1956 Unknown [id number] Private Health Insurance [id number] Social History Date Type Detail Facility Start: 07-17-2016 Tobacco smoking stat [facility] Former smoker [facility] Work Phone: End: 07-17-1984 History of tobacco use Current smoker [facility] Work Phone: Sex Assigned At Not on file [facility] Work Phone: Advance Directives No Advanced Directives Records FoundDocuments on File Type Date Recorded Patient Clinical Ob Expl anation Advance Directives and Living Will Power of Clinical Informatics Specialist Summary Purpose Family History No Family History Records FoundNo Family History Records Found Additional Source Comments INFORMATION SOURCE (unrecogn ized section and content) DATE CREATED AUTHOR AUTHOR'S JADA ATION 02/06/2023 [facility] FOR RECORDS PERTAINING TO PATIENTS WHO ARE OR HAVE BEEN ENROLLED IN A CHEMICAL DEPENDENCY/SUBSTANCEABUSE PROGRAM, SOME INFORMATION MAY BE OMITTED. This clinical summary was aggregated from multiple sources. Caution should be exercised in using it in the provision of clinical care. This summary normalizes information from multiple sources, and as a consequence, information in this document may materially change the coding, format and clinical context of patient data. In addition, data may be omitted in some cases. CLINICAL DECISIONS SHOULD BE BASED ON THE PRIMARY CLINICAL RECORDS. [employer] provides no warranty or guarantee of the accuracy or completeness of information in this document.
[2023-05-28 11:18] LABS: Vitamin B12 678 pg/mL (211-911)
[2023-05-28 11:55] LABS: AST(SGOT) 18 U/L (15-37); Alanine Aminotransfer ALT/SGPT 21 U/L (13-56); Albumin, Serum 3.4 g/dL (3.2-5.0); Alkaline Phosphatase 74 U/L (45-117); Anion Gap 5 (5-15); BUN 12 mg/dL (7-18); BUN/Creat Ratio 16.2 RATIO (10-20); Calcium,Total 9.1 mg/dL (8.5-10.1); Chloride 108 mmol/L (98-107); Creatinine, Serum 0.74 mg/dL (0.55-1.02); EST Glomerular Filtration Rate 83 mL/min (>60); Est Glom Filt Rate - Afr Amer 101 mL/min (>60); Globulin 3.4 g/dL (2.2-4.2); Glucose 103 mg/dL (74-106); Potassium 4.5 mmol/L (3.5-5.1); Protein, Total 6.8 g/dL (6.4-8.2); Sodium Level 141 mmol/L (136-145)
[2023-06-02 20:07] LABS: VITAMIN B6 46.8 ug/L (3.4-65.2); Vitamin B1, Thiamine 157.8 nmol/L (66.5-200.0)
== END | disposition home or self-care (01) ==
PROVIDERS: PCP Physician Assistant
DX: H47.20 Unspecified optic atrophy (principal)
CPT/HCPCS: 36415; 80053; 82607; 82746; 84207; 84425; 85025

== ENCOUNTER 2023-05-29 19:14 | Emergency (ER) | payer OTHER, SELFPAY ==
[2023-05-29] VITALS (7 sets, daily range): BP systolic 139–188; BP diastolic 63–84; PULSE 63–68; RESP 13–16; TEMP 36.4–36.7; O2SAT 94–100; BMI 33.3
--- NOTE | 2023-05-29 19:46 | CT_ITS ---
INDICATION: aneurysm EXAMINATION: CTA HEAD - CTA Head and Neck W/ Contrast Injection (and W/O Contrast Images if performed) TECHNIQUE: [place]/head CT angiogram protocol was performed following IV contrast. 3D reconstructions were reviewed. A radiation dose optimization technique was used for this scan. IV Contrast dosage and agent: 100 mL Isovue-370 Radiation Dose (provided by facility) CTDIvol (26.14 ) mGy, DLP ( 1391.39) mGy-cm COMPARISON: None. FINDINGS: CTA [place]: PETROUS AND CAVERNOUS CAROTID ARTERIES: Normal appearance of the petrous and cavernous carotid vessels bilaterally. No focal stenosis noted. SUPRACLINOID CAROTID ARTERIES: 1. Moderate calcifications involving the supraclinoid carotid vessels bilaterally. There is a large lobulated RIGHT supraclinoid carotid aneurysm with evidence of intraluminal filling defects, and contrast enhancement. This measures approximately 3.0 x 2.1 x 2.4 cm in size, corresponding to the findings on recent MRI. Significant mass effect and deformity of the floor the 3rd ventricle, extending superiorly to the level of the foramen of Enriquez. Hyperdense material present within the aneurysm consistent with thrombus, however contrast enhancement is noted consistent with active internal flow. There is a neck of the aneurysm estimated at approximately 7 mm in luminal dimension. 2. There is however a small anteriorly directed aneurysm measuring 5 x 4 mm arising from the anteromedial aspect of the neck of the larger aneurysm. 3. No evidence of extra axial intraventricular or intraparenchymal hemorrhage. ANTERIOR CEREBRAL AND A- COMM: Normal appearance the proximal and distal segments of the anterior cerebral circulation bilaterally. MIDDLE CEREBRAL ARTERIES: Normal appearance the proximal and distal segments of the middle cerebral circulation bilaterally. Normal appearance of the M4 cortical distribution bilaterally. INTRACRANIAL VERTEBRAL ARTERIES AND BASILAR ARTERY: Normal appearance of the intracranial course of the vertebral arteries bilaterally, normal appearance of basilar artery to the level of the bifurcation. Moderate vascular calcifications involving the LEFT vertebral artery without stenosis. POSTERIOR CEREBRAL ARTERIES: Normal appearance proximal distal segments of posterior cerebral circulation bilaterally. DURAL SINUSES: Normal, no filling defects noted CT HEAD: Large supraclinoid aneurysm is hyperdense with deformity of the adjacent parenchyma. The remaining hemispheric parenchyma ventricular system is normal appearance. CTA Neck: TECHNIQUE: CTA examination of the neck obtained with standard protocol including axial postcontrast imaging with additional planar and three-dimensional reconstructions. Aortic arch: [Normal appearance of the aortic arch and origin the great vessels.] There is bovine origin of the carotid vessels. Right carotid system: There is normal appearance RIGHT common carotid, RIGHT internal carotid arteries, and the bifurcation. Normal appearance of the external carotid circulation on the RIGHT. Left carotid system: There is normal appearance of the LEFT common carotid, LEFT internal carotid, and the bifurcation. There is normal appearance of the LEFT external carotid circulation scattered calcifications involving the LEFT carotid bulb without stenosis or occlusion. Vertebral arteries: There is normal appearance of the vertebral arteries bilaterally without focal stenosis or occlusion. Airway and soft tissues of the neck: There is normal appearance of the musculofascial planes of suprahyoid and infrahyoid neck. Normal appearance of the visualized airway. Normal appearance the visualized thyroid without masses or nodules noted. Cervical spine: Normal appearance of bony elements of the cervical spine. No focal stenosis or occlusion involving the cervical spinal canal. CT/CTA Head AND Neck W/ Contrast IMPRESSION: 1. 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 Maximal dimension on current exam estimated at 3.0 x 2.1 x 2.4 cm. There is intraluminal thrombus however intraluminal contrast enhancement is present consistent with internal flow. 2. There is a neck of the aneurysm measuring approximately 7 mm. There is however a secondary smaller anteriorly directed aneurysm arising from the base of the aneurysm neck, and measures approximately 5 x 4 mm. 3. The large aneurysm deforms the floor of the 3rd ventricle, and extends superiorly to the level of the foramen of Enriquez. 4. Remaining elements of the [place] have age appropriate appearance, no evidence of LVO. 5. Normal appearance of the cervical carotid and vertebral circulation with the exception of minimal scattered calcifications. No evidence of stenosis occlusion or luminal irregularity. Electronically Signed: Eric Torres MD at 20:51 EST ,
[2023-05-29 20:12] LABS: Absolute Lymphocyte Count 2.92 X10^3/uL (0.83-4.51); Absolute Neutrophil Count 3.8 X10^3/uL (2.0-7.7); Basophil# 0.06 X10^3/uL; Basophil% 0.8 % (0-1); Eosinophil# 0.23 X10^3/uL; Hematocrit 48.2 % (37-47); Hemoglobin 15.9 g/dL (12.0-15.0); Lymphocyte # 2.92 X10^3/ul (0.83-4.51); Lymphocyte % 37.5 % (19-41); Mean Corpuscular Hgb 28.1 pg (27.0-32.0); Mean Corpuscular Volume 85.2 fL (81-99); Mean Platelet Vol. 9.9 fl (6.2-12.0); Monocyte# 0.73 X10^3/uL; Monocyte% 9.4 % (0-10); NRBC Flagged by Analyzer 0 % (0-5); Neutrophil # 3.83 X10^3/uL (2.7-7.7); Platelet Count 212 K/mm3 (150-450); RBC Distribution Width CV 13.4 % (11.6-14.6); RBC Distribution Width SD 42.4 fl (35.1-43.9); Red Blood Count 5.66 M/mm3 (4.2-5.4); White Blood Count 7.8 K/mm3 (4.4-11.0)
--- NOTE | 2023-05-29 20:26 | EKG12_ITS ---
Test Reason : DYSRHYTHMIA Blood Pressure : / mmHG Vent. Rate : 059 BPM Atrial Rate : 059 BPM P-R Int : 174 ms QRS Dur : 084 ms QT Int : 426 ms P-R-T Axes : 011 037 015 degrees QTc Int : 421 ms Sinus bradycardia Otherwise normal ECG Confirmed by CAROLIN RAMEY, TOY ([id number]), desk editor ALICE RAMOS ([id number]) on 06/09/2023 8:45:29 AM Referred By: Confirmed By:TOY COE MD
[2023-05-29 20:29] LABS: Anion Gap 5 (5-15); BUN 13 mg/dL (7-18); BUN/Creat Ratio 15.5 RATIO (10-20); Calcium,Total 9.9 mg/dL (8.5-10.1); Chloride 106 mmol/L (98-107); Creatinine, Serum 0.84 mg/dL (0.55-1.02); EST Glomerular Filtration Rate 72 mL/min (>60); Est Glom Filt Rate - Afr Amer 87 mL/min (>60); Estimated Creatinine Clearance 59.28 ml/min; Glucose 111 mg/dL (74-106); Potassium 3.8 mmol/L (3.5-5.1); Sodium Level 140 mmol/L (136-145)
[2023-05-29 20:50] LABS: Troponin-I HS 8 pg/mL (3.0-54.0)
[2023-05-29] MEDS: NICARdipine 25 MG in 0.9% Normal Saline (250mL Bag) 240 ML 50 MG CONT INF (21:22)
--- NOTE | 2023-05-29 22:43 | NURSING ---
Report called to [facility] and given to Bryan WHALEY.
--- NOTE | 2023-05-29 23:45 | EX.ED.DYSGE1 ---
HPI History of Present Illness Chief Complaint: Other, Pain/Inj Narrative Narrative: 67-year-old female presenting with abnormal MRI which was performed today. I received a call from her special weapons and tactics officer who stated that it was abnormal and she had a large aneurysm in the brain. Patient reports that she has had headaches for the last couple of months and decreased vision for which she had seen her special weapons and tactics officer. Her special weapons and tactics officer sent her to a specialist as there was concern for glaucoma and addictions recovery specialist stated that he sent her for an MRI today because she did not have glaucoma. Patient states that her headache is mild today. She has had worse headaches. She denies any new visual complaints. She has mild nausea at times. Denies fevers or chills. Patient anticoagulated on Eliquis secondary to A-fib. Denies any head trauma. [facility] Medical History A-fib Essential (primary) hypertension GERD (gastroesophageal reflux disease) Glaucoma Hyperlipidemia Obesity Paroxysmal atrial fibrillation Home Medications Adrenal 200 mg PO DAILY supplement 04/30/16 [History Last Taken 07/08/16] multivitamin 1 ea PO DAILY 04/30/16 [History Last Taken 07/08/16] lactobacillus combination no.8 3 billion cell capsule (Adult Probiotic) 3,000 mmu cells PO DAILY 09/22/18 [History Last Taken Unknown] calcium carb-ergocalciferol (vit D2) 500 mg-125 unit tablet 1 tab PO TID 09/19/19 [History Last Taken Unknown] latanoprost 0.005 % eye drops 1 drp ophthalmic (eye) DAILY 09/19/19 [History Last Taken Unknown] simvastatin 10 mg tablet 10 mg PO QHS 09/19/19 [History Last Taken Unknown] metoprolol succinate 50 mg tablet,extended release 24 hr (Toprol XL) 50 mg PO DAILY #90 tabs 05/19/22 [Rx Last Taken Unknown] apixaban 5 mg tablet (Eliquis) See Rx Instructions .Route .COMPLEX #180 tabs 09/29/22 [Rx Last Taken Unknown] flecainide 50 mg tablet See Rx Instructions .Route .COMPLEX #180 tabs 04/08/23 [Rx Last Taken Unknown] brimonidine 0.2 %-timolol 0.5 % eye drops 1 drp ophthalmic (eye) Q12H 05/29/23 [History Last Taken Unknown] Allergy/AdvReac Type Severity Reaction Status Date / Time lisinopril Allergy Unknown Verified 05/29/23 19:18 silver sulfadiazine Allergy Unknown Verified 05/29/23 19:18 [From [facility]] Family History Father Hypertension Diabetes Mother Hypertension Cancer lung cancer Brother Hypertension Surgical History History of cholecystectomy History of left heart catheterization (05/05/16) Social History Smoking Status: Former smoker alcohol intake: never substance use type: does not use caffeine: Yes Type: coffee Number of servings: 1 eating out: 1-3 times/week what type of physical activity do you participate in: other details: fit board frequency: daily duration: 30-45 minutes/day seatbelt use: always do you feel safe at home: Yes ROS ROS ED Constitutional Constitutional ED: Denies chills or fever(s) Eyes Eyes: Reports change in vision right ENT ENT ED: Denies rhinorrhea Cardiovascular Cardiovascular: Denies chest pain or palpitations Respiratory/Chest Respiratory/Chest: Denies cough or dyspnea Gastrointestinal Gastrointestinal: Denies constipation or diarrhea Genitourinary Genitourinary ED: Denies dysuria Musculoskeletal Musculoskeletal: Denies arthralgias or back pain Integumentary Denies abscess or Abrasions Neurologic Neurologic: Reports headache(s); Denies paresthesias or weakness Psychiatric Psychiatric: Denies anxiety or depression EXAM Physical Exam Const Vital Signs: 05/29/23 19:15 05/29/23 19:32 05/29/23 21:12 Temperature 97.5 F L Temperature Source Temporal Pulse Rate 64 Respiratory Rate 15 Respiratory Effort Normal Respiratory Pattern Normal Blood Pressure 188/84 H Blood Pressure Mean 118 Pulse Ox 100 Oxygen Delivery Method Room Air Room Air 05/29/23 21:12 05/29/23 21:22 05/29/23 21:38 Temperature Temperature Source Pulse Rate 68 63 66 Respiratory Rate 15 16 16 Respiratory Effort Respiratory Pattern Blood Pressure 158/68 H 158/68 H 146/71 H Blood Pressure Mean 98 98 96 Pulse Ox 98 95 98 Oxygen Delivery Method Room Air Room Air Room Air 05/29/23 21:48 05/29/23 23:14 05/29/23 23:15 Temperature 98.1 F Temperature Source Pulse Rate 64 65 66 Respiratory Rate 16 13 16 Respiratory Effort Respiratory Pattern Blood Pressure 139/63 H 145/69 H 145/69 H Blood Pressure Mean 88 94 94 Pulse Ox 98 94 Oxygen Delivery Method Room Air Room Air Positive well nourished General Appearance ED: NAD; Negative for pallor HEENT Reports moist mucous membranes Negative for trauma Eyes PERRL and EOMs intact bilaterally Chest Wall inspection of chest normal Resp normal respiratory effort and clear to auscultation bilaterally Auscultation: Negative for rales, rhonchi or wheezes Cardio regular rate and regular rhythm GI normal to inspection, nondistended, normoactive bowel sounds Back/Spine no CVA tenderness Neuro oriented x3, CN's II-XII intact bilaterally and no sensory deficits noted Sensorium / Orientation: alert Psych mental status grossly normal Skin no rashes or lesions noted and no wounds General Skin Exam: elasticity normal; Negative for jaundice or pallor MDM MDM MDM Narrative Medical decision making narrative: Patient presenting with headaches for the last couple of months. She also had an abnormal MRI. I was able to speak to the radiologist she tells me that she has a very large aneurysm with high flow and clots within it. There is concern that it is pressing on the optic nerves as well as the third ventricle and deforms the foramen of Enriquez. He recommended a CTA as this would be helpful for neurosurgery. I spoke with Dr. Villa at [facility] who did review the CTA and the MRI as we had this digitally sent. He recommended a Cardene drip which was started. We maintained and her blood pressure at around 130. This was somewhat difficult to control because she was anxious and tearful after finding out the news. Basic lab work was obtained and was unremarkable. EKG showed sinus bradycardia at a rate of 59 bpm without sign of ischemic change or ectopy on my interpretation. Neurology recommended no reversal meds for Eliquis. They recommended titration of blood pressure control and transfer. Apparently will not be able to arrange for ground team until 7 AM this morning so this point we called [facility] who was able to come by 1130 and transport the patient to [facility]. Patient amenable to this plan. She signed consent for this. Family was informed of all findings. Impression: 1. Headaches 2. Vision loss 3. 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 7 mm secondary aneurysm 5. Intraluminal thrombus Lab Data Labs: Laboratory Results - last 24 hr 05/29/23 20:00 WBC 7.8 RBC 5.66 H Hgb 15.9 H Hct 48.2 H MCV 85.2 MCH 28.1 MCHC 33.0 RDW Std Deviation 42.4 RDW Coeff of Mika 13.4 Plt Count 212 MPV 9.9 Immature Gran % (Auto) 0.300 Neut % (Auto) 49.0 Lymph % (Auto) 37.5 [place] % (Auto) 9.4 Eos % (Auto) 3.0 Baso % (Auto) 0.8 Absolute Neuts (auto) 3.8 Absolute Lymphs (auto) 2.92 Nucleated RBC % 0 Sodium 140 Potassium 3.8 Chloride 106 Carbon Dioxide 29.0 Anion Gap 5 BUN 13 Creatinine 0.84 Estim Creat Clear Calc 59.28 Est GFR (MDRD) Af Amer 87 Est GFR (MDRD) Non-Af 72 BUN/Creatinine Ratio 15.5 Glucose 111 H Calcium 9.9 Troponin I High Sens 8 Radiography Diagnostic Testing: Clinical Impression(s) from Imaging Studies Head/Neck CTA 05/29/23 19:46 IMPRESSION: 1. 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 Maximal dimension on current exam estimated at 3.0 x 2.1 x 2.4 cm. There is intraluminal thrombus however intraluminal contrast enhancement is present consistent with internal flow. 2. There is a neck of the aneurysm measuring approximately 7 mm. There is however a secondary smaller anteriorly directed aneurysm arising from the base of the aneurysm neck, and measures approximately 5 x 4 mm. 3. The large aneurysm deforms the floor of the 3rd ventricle, and extends superiorly to the level of the foramen of Enriquez. 4. Remaining elements of the [place] of [place] have age appropriate appearance, no evidence of LVO. 5. Normal appearance of the cervical carotid and vertebral circulation with the exception of minimal scattered calcifications. No evidence of stenosis occlusion or luminal irregularity. Electronically Signed: Eric Torres MD at 20:51 EST , Critical Care Time Critical Care Time: Yes Critical care time (excluding procedures): 30-74 minutes (35), Discussing w/Patient &/or Family/Strap Buckler Machine, Discussing w/Consultants, Arranging Admission or Transfer and Performing Direct Patient Care at Bedside Discharge Plan Triage Chief Complaint: Other, Pain/Inj ED Provider: Godwin Wall Dx/Rx/DC Orders Prescriptions: No Action Adult Probiotic 3 billion cell capsule 3,000 mmu cells PO DAILY latanoprost 0.005 % drops 1 drp OPHTHALMIC DAILY simvastatin 10 mg tablet 10 mg PO QHS Patient Comments: TAKE ONE TABLET WITH EVENING MEAL OR AT BEDTIME calcium carb-ergocalciferol (vit D2) 500 mg-125 unit tablet 500-125 mg-unit tablet 1 tab PO TID Adrenal 200 mg PO DAILY multivitamin 1 EACH tablet 1 ea PO DAILY brimonidine-timolol 0.2-0.5 % drops 1 drp ophthalmic (eye) Q12H Patient Comments: INSTILL 1 DROP INTO BOTH EYES TWICE A DAY metoprolol succinate [Toprol XL] 50 mg tablet extended release 24 hr 50 mg PO DAILY Qty: 90 3RF Eliquis 5 mg tablet See Rx Instructions .ROUTE .COMPLEX Qty: 180 3RF Dose Instruction: TAKE 1 TABLET BY MOUTH TWICE A DAY Rx Instructions: TAKE 1 TABLET BY MOUTH TWICE A DAY flecainide 50 mg tablet See Rx Instructions .ROUTE .COMPLEX Qty: 180 3RF Dose Instruction: TAKE 1 TAB BY MOUTH EVERY 12 HOURS Rx Instructions: TAKE 1 TAB BY MOUTH EVERY 12 HOURS Primary Care Provider: Jessi Moy Referrals: Jessi Moy PA [Primary Care Provider] - Disposition Disposition: Acute Care Hospital Discharge Location: [facility] Discharge Date/Time: 05/29/23 23:24
== END 2023-05-29 23:24 | disposition short-term general hospital (02) ==
LOC: ED 19:58
PROVIDERS: Emergency Provider Student in an Organized Health Care Education/Training Program; PCP Physician Assistant; Visit Provider Student in an Organized Health Care Education/Training Program
DX: I72.0 Aneurysm of carotid artery (principal); I74.11 Embolism and thrombosis of thoracic aorta; I48.0 Paroxysmal atrial fibrillation; I10 Essential (primary) hypertension; E78.5 Hyperlipidemia, unspecified; Z79.01 Long term (current) use of anticoagulants; Z79.899 Other long term (current) drug therapy; Z87.891 Personal history of nicotine dependence
CPT/HCPCS: 70496; 70498; 80048; 84484; 85025; 93005; 96365; 99285; J7050; Q9967; A4216

== ENCOUNTER → 2023-05-29 | Outpatient (CLI) | payer OTHER, SELFPAY ==
--- NOTE | 2023-05-29 17:56 | MRI_ITS ---
INDICATION: OPTIC ATROPHY, BLURRED VISION EXAMINATION: MRI - MR Brain WO/W Contrast TECHNIQUE: MRI examination of brain obtained with standard protocol including multiplanar multiecho imaging. MRI examination obtained with standard protocol clinically multiplanar multiecho pre and postcontrast imaging. Pre and Postcontrast imaging obtained. IV Contrast Dosage and Agent: None. COMPARISON: None. FINDINGS: HEMISPHERES, CEREBELLUM AND BRAINSTEM: 1. The cerebral parenchyma ventricular system and gyral pattern have normal appearance with the exception of marked deformity of the inferior aspect of the frontal lobes along the interhemispheric fissure with extensive deformity of the floor and anterior wall of the 3rd ventricle. This is due to an extra-axial vascular mass/aneurysm measuring approximately 3.1 x 2.1 cm in axial dimension, and 2.8 cm in superior to inferior dimension. There is contrast enhancement consistent with active flow into the lumen of the aneurysm. This aneurysm appears to be arising from the RIGHT supraclinoid carotid artery, and appears to have neck estimated at approximately 8 mm in width. There is mass effect on the adjacent brain parenchyma with minimal adjacent edema. There also is apparent effacement of the LEFT optic nerve. 2. Remaining hemispheric parenchyma has normal appearance. No intraparenchymal mass, hemorrhage, or acute territorial infarct. 3. The cerebellum, brainstem, and basilar cistern have normal appearance. No Chiari malformation. PITUITARY: Infundibulum and pituitary have normal configuration. Midline structures appear normal. CSF SPACES: Appropriate for age. No hydrocephalus. Basal cisterns are patent. VESSELS: 1. Normal flow voids in the visualized vessels, and a large supraclinoid aneurysm with internal flow and contrast enhancement is present. ORBITS AND PARANASAL SINUSES: 1. Both globes, extraocular muscles, optic nerves and retrobulbar fat appear unremarkable. 2. Paranasal sinuses are clear. BONY ELEMENTS: Bony elements of the cranial vault, facial skeleton and skull base have normal appearance. SCALP AND SOFT TISSUES: Normal appearance of the soft tissues of the scalp and the visualized face OTHER: None MRI/Brain W/WO Contrast IMPRESSION: 1. 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 This appears to be arising from the RIGHT supraclinoid carotid with a neck estimated at approximately 8 mm in width. There is evidence of high flow and active contrast enhancement within the lumen. 2. There is significant surrounding mass effect including the adjacent brain parenchyma, including the inferior medial aspect of the frontal lobes greater on the RIGHT than LEFT, significant deformity of the floor and anterior wall of the 3rd ventricle with superior extension to the level of the foramina of Enriquez. Additional mass effect on the optic nerves greater on the RIGHT than LEFT. 3. Remaining hemispheric parenchyma has normal appearance, no intraparenchymal mass, hemorrhage, or acute territorial infarct. No evidence of ventricular obstruction. 4. There is mild adjacent edema due to the mass effect of the aneurysm. [facility] (nonstandard communication) notification was initiated at 6:26 PM [facility] DIRECT[facility] N.B. : The above Results were Read Back by Eric Torres MD to William Hand MD, and understanding confirmed on 05/29/2023 19:26:29 (ET). Electronically Signed: Eric Torres MD at 19:31 EST ,
== END | disposition home or self-care (01) ==
PROVIDERS: PCP Physician Assistant
DX: H47.20 Unspecified optic atrophy (principal)
CPT/HCPCS: 70553; A9575

== ENCOUNTER 2023-10-09 09:03 | Emergency (ER) | payer OTHER, SELFPAY ==
[2023-10-09 09:03] VITALS: BP 171/81; PULSE 72; RESP 14; TEMP 36.3; O2SAT 99; BMI 34.1
--- NOTE | 2023-10-09 09:17 | ED.RN ---
visual accuity done. pt states that her rt eye has always been really bad, the left eye is the one that has gotten worse in last week.
--- NOTE | 2023-10-09 09:34 | EDS_ITS ---
HPI History of Present Illness Chief Complaint: Vision Prob Informant: patient Onset/Context/Timing Onset: Weeks (1) Context: Sudden Onset Timing: Continuous Quality: Blurry, foggy Location: Both eyes Worsened by: Nothing Relieved by: Nothing Narrative Narrative: Patient presents with worsening vision over the past week. Patient states it is more blurry and foggy. Patient states it is in both eyes. Patient states nothing makes it better and nothing makes it worse. Patient had surgery for cerebral aneurysm that was diagnosed in May of this year. Patient states her vision was blurry at that time and has been constant since that time. Patient states that over the last week however has gotten worse. Patient denies any headaches. Patient denies any nausea or vomiting. Patient denies any fevers or chills. [facility] Medical History (Updated 10/09/23 @ 12:[address] Vince Delatorre, ) A-fib Essential (primary) hypertension GERD (gastroesophageal reflux disease) Glaucoma Hyperlipidemia Obesity Paroxysmal atrial fibrillation Home Medications Adrenal 200 mg PO DAILY supplement 04/30/16 [History Last Taken 07/08/16] multivitamin 1 ea PO DAILY 04/30/16 [History Last Taken 07/08/16] lactobacillus combination no.8 3 billion cell capsule (Adult Probiotic) 3,000 mmu cells PO DAILY 09/22/18 [History Last Taken Unknown] calcium carb-ergocalciferol (vit D2) 500 mg-125 unit tablet 1 tab PO TID 09/19/19 [History Last Taken Unknown] latanoprost 0.005 % eye drops 1 drp ophthalmic (eye) DAILY 09/19/19 [History Last Taken Unknown] simvastatin 10 mg tablet 10 mg PO QHS 09/19/19 [History Last Taken Unknown] flecainide 50 mg tablet See Rx Instructions .Route .COMPLEX #180 tabs 04/08/23 [Rx Last Taken Unknown] brimonidine 0.2 %-timolol 0.5 % eye drops 1 drp ophthalmic (eye) Q12H 05/29/23 [History Last Taken Unknown] apixaban 5 mg tablet (Eliquis) See Rx Instructions .Route .COMPLEX #180 tabs 08/03/23 [Rx Last Taken Unknown] aspirin 81 mg capsule 81 mg PO DAILY 10/09/23 [History Last Taken Unknown] dorzolamide 22.3 mg-timolol 6.8 mg/mL eye drops 1 drp ophthalmic (eye) BID 10/09/23 [History Last Taken Unknown] metoprolol succinate 50 mg tablet,extended release 24 hr 25 mg PO DAILY 10/09/23 [History Last Taken Unknown] Allergy/AdvReac Type Severity Reaction Status Date / Time lisinopril Allergy Unknown Verified 10/09/23 09:04 silver sulfadiazine Allergy Unknown Verified 10/09/23 09:04 [From [facility]] Family History Father Hypertension Diabetes Mother Hypertension Cancer lung cancer Brother Hypertension Surgical History (Updated 10/09/23 @ 09:[address] Vince Delatorre DO) History of cholecystectomy History of left heart catheterization (05/05/16) S/P coil embolization of cerebral aneurysm Social History Smoking Status: Former smoker alcohol intake: never substance use type: does not use caffeine: Yes Type: coffee Number of servings: 1 eating out: 1-3 times/week what type of physical activity do you participate in: other details: fit board frequency: daily duration: 30-45 minutes/day seatbelt use: always do you feel safe at home: Yes ROS ROS ED Constitutional Constitutional ED: Denies chills or fever(s) Eyes Eyes: Reports blurry vision bilateral and change in vision bilateral ENT ENT ED: Denies rhinorrhea or sore throat Cardiovascular Cardiovascular: Denies chest pain or palpitations Respiratory/Chest Respiratory/Chest: Denies cough or dyspnea Gastrointestinal Gastrointestinal: Denies nausea or vomiting Genitourinary Genitourinary ED: Denies dysuria or hematuria Musculoskeletal Musculoskeletal: Denies back pain or neck pain Integumentary Denies abscess or rash Neurologic Neurologic: Denies headache(s) or weakness Allergic/Immunologic Allergic/Immunologic ED: Denies mouth swelling or urticaria EXAM Physical Exam Const Vital Signs: 10/09/23 09:03 10/09/23 10:03 10/09/23 11:00 Temperature 97.3 F L Temperature Source Temporal Pulse Rate 72 62 72 Respiratory Rate 14 16 16 Blood Pressure 171/81 H 146/66 H 141/59 H Blood Pressure Mean 111 92 86 Pulse Ox 99 97 98 Oxygen Delivery Method Room Air Room Air 10/09/23 12:00 Temperature Temperature Source Pulse Rate 81 Respiratory Rate 16 Blood Pressure 134/63 H Blood Pressure Mean 86 Pulse Ox 97 Oxygen Delivery Method Room Air Positive well nourished and well developed General Appearance ED: well developed and NAD HEENT Reports moist mucous membranes Eyes PERRL and EOMs intact bilaterally Eyes Narrative: There are no visual field deficits noted. Neck supple and no JVD Resp normal respiratory effort and clear to auscultation bilaterally Cardio regular rate and regular rhythm GI normal to inspection, nondistended, normoactive bowel sounds and non-tender Palpation: soft Extremity normal to inspection General Extremety ED: Negative for edema or tenderness General Extremity: Negative for edema Neuro oriented x3, CN's II-XII intact bilaterally and no sensory deficits noted Sensorium / Orientation: alert Motor Exam: strength 5/5 throughout Psych mental status grossly normal Skin no rashes or lesions noted MDM MDM MDM Narrative Medical decision making narrative: Differential diagnosis includes ruptured cerebral aneurysm, glaucoma, cataract, electrolyte abnormality, hyperglycemia, coagulopathy, and stroke. CT scan of the brain with and without contrast will be obtained to assess for cerebral aneurysm and stroke. CBC will be obtained to assess for leukocytosis and anemia. Basic metabolic profile will be obtained to assess for hypoglycemia, hyperglycemia, electrolyte abnormality, and renal function. PT with INR and PTT will be obtained to assess for coagulopathy. Lab Data Attestation: I reviewed the patient's lab results. Lab results narrative: CBC was reviewed and was within normal limits. Basic metabolic profile was reviewed and was within normal limits. PT was INR and PTT were reviewed and were within normal limits. Labs: Laboratory Results - last 24 hr 10/09/23 10/09/23 10:13 10:33 WBC 5.5 RBC 5.21 Hgb 14.9 Hct 45.3 MCV 86.9 MCH 28.6 MCHC 32.9 RDW Std Deviation 42.7 RDW Coeff of Mika 13.4 Plt Count 223 MPV 9.6 Immature Gran % (Auto) 0.200 Neut % (Auto) 56.0 Lymph % (Auto) 30.5 [place] % (Auto) 9.3 Eos % (Auto) 3.3 Baso % (Auto) 0.7 Absolute Neuts (auto) 3.1 Absolute Lymphs (auto) 1.68 Nucleated RBC % 0 PT 14.1 INR 1.1 APTT 35.0 Sodium 138 Potassium 4.2 Chloride 106 Carbon Dioxide 27.0 Anion Gap 5 BUN 12 Creatinine 0.82 Estim Creat Clear Calc 76.11 Est GFR (MDRD) Af Amer 89 Est GFR (MDRD) Non-Af 74 BUN/Creatinine Ratio 14.6 Glucose 99 Calcium 9.8 Radiography Diagnostic Testing: Clinical Impression(s) from Imaging Studies Head CTA 10/09/23 10:00 IMPRESSION: Persistent lobulated aneurysm involving the supraclinoid carotid artery on the right side with evidence of surgical coils. There is no evidence of flow within the large aneurysm at this time following IV contrast material. Persistent 6.5 mm x 6.2 mm aneurysm along the anterior lateral aspect of the coil placement. Electronically Signed: Anthony Luna MD at 11:16 EDT , CTA of the head brain was obtained. There is a persistent aneurysm in the supraclinoid carotid artery on the right with evidence of surgical coils. There is no evidence of flow within the aneurysm at this time. There is a persistent 6.5 mm x 6.2 mm aneurysm along the anterior lateral aspect of the coil placement. There is no findings of an acute ischemic infarction at this time. This was interpreted by the radiologist and was also independently reviewed by myself. Additional Tests and Interventions Additional Tests or Interventions: Intraocular pressures were obtained. It was 9 on the left eye and 15 on the right eye. Patient states her pressures were 10 approximately 2 weeks ago. Treatment and Re-Evaluation :: Patient was advised of her findings. Patient wants to go home. Case was discussed with Dr. Quigley from ophthalmology. He stated they will call the patient to schedule appointment this afternoon. Patient was instructed to follow-up with this appointment. Patient understood and was agreeable with the plan. All questions were answered. Discharge Plan Triage Chief Complaint: Vision Prob ED Provider: Vince Delatorre Dx/Rx/DC Orders Clinical Impression: Change in vision, Aneurysm, cerebral Instructions: Understanding Vision Problems Prescriptions: No Action Adult Probiotic 3 billion cell capsule 3,000 mmu cells PO DAILY latanoprost 0.005 % drops 1 drp OPHTHALMIC DAILY simvastatin 10 mg tablet 10 mg PO QHS Patient Comments: TAKE ONE TABLET WITH EVENING MEAL OR AT BEDTIME calcium carb-ergocalciferol (vit D2) 500 mg-125 unit tablet 500-125 mg-unit tablet 1 tab PO TID Adrenal 200 mg PO DAILY multivitamin 1 EACH tablet 1 ea PO DAILY brimonidine-timolol 0.2-0.5 % drops 1 drp ophthalmic (eye) Q12H Patient Comments: INSTILL 1 DROP INTO BOTH EYES TWICE A DAY dorzolamide-timolol 22.3-6.8 mg/mL drops 1 drp ophthalmic (eye) BID aspirin 81 mg capsule 81 mg PO DAILY metoprolol succinate 50 mg tablet extended release 24 hr 25 mg PO DAILY flecainide 50 mg tablet See Rx Instructions .ROUTE .COMPLEX Qty: 180 3RF Dose Instruction: TAKE 1 TAB BY MOUTH EVERY 12 HOURS Rx Instructions: TAKE 1 TAB BY MOUTH EVERY 12 HOURS Eliquis 5 mg tablet See Rx Instructions .ROUTE .COMPLEX Qty: 180 3RF Dose Instruction: TAKE 1 TABLET BY MOUTH TWICE A DAY Rx Instructions: TAKE 1 TABLET BY MOUTH TWICE A DAY Primary Care Provider: Jessi Moy Referrals: Curly Quigley MD [Med Staff - Active Staff] - As soon as possible (They will call you for an appointment this afternoon) Jessi Moy PA [Primary Care Provider] - Disposition Disposition: Home, Self Care
--- NOTE | 2023-10-09 10:00 | CT_ITS ---
STUDY: CT BRAIN WITH AND WITHOUT CONTRAST REASON FOR EXAM: Female, 67 years old. Cerebral aneurysm. History of prior coil embolization. Altered vision. RADIATION DOSAGE (If Supplied By Facility): CTDIvol = ( 27.18 ) mGy, DLP = ( 1203.75 ) mGycm TECHNIQUE: Transaxial CT imaging of the brain was performed pre and post contrast administration. The examination was performed with intravenous administration of IV 100mL Isovue-370. Individualized dose optimization techniques were used for this CT. COMPARISON: Comparison is made with prior study dated May 29, 2023. FINDINGS: Normal soft tissue structures. Normal calvarium. Normal size ventricles and extra-axial spaces for the patient''s age. Normal white matter tracts of the cerebral hemispheres. Normal basal ganglia and thalami. Normal brainstem. Normal cerebellum. 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 No contrast-enhancement is seen at this time. At this time however, there is evidence of surgical coils along its''s anterior lateral aspect of the aneurysm with the streak artifact. Anterior to the coils, there is a persistent 6.5 mm x 6.2 mm aneurysm. Significant mass effect and deformity of the fourth and third ventricle persists. There are no findings of an acute ischemic infarction. Normal visualized paranasal sinuses. CT/CTA Head W/WO Contrast IMPRESSION: Persistent lobulated aneurysm involving the supraclinoid carotid artery on the right side with evidence of surgical coils. There is no evidence of flow within the large aneurysm at this time following IV contrast material. Persistent 6.5 mm x 6.2 mm aneurysm along the anterior lateral aspect of the coil placement. Electronically Signed: Anthony Luna MD at 11:16 EDT ,
[2023-10-09 10:03] VITALS: BP 146/66; PULSE 62; RESP 16; O2SAT 97
[2023-10-09 10:20] LABS: Absolute Lymphocyte Count 1.68 X10^3/uL (0.83-4.51); Absolute Neutrophil Count 3.1 X10^3/uL (2.0-7.7); Basophil# 0.04 X10^3/uL; Basophil% 0.7 % (0-1); Eosinophil# 0.18 X10^3/uL; Eosinophils% 3.3 % (0-5); Hematocrit 45.3 % (37-47); Hemoglobin 14.9 g/dL (12.0-15.0); Lymphocyte # 1.68 X10^3/ul (0.83-4.51); Lymphocyte % 30.5 % (19-41); Mean Corp Hgb Conc 32.9 g/dL (32-36); Mean Corpuscular Hgb 28.6 pg (27.0-32.0); Mean Corpuscular Volume 86.9 fL (81-99); Mean Platelet Vol. 9.6 fl (6.2-12.0); Monocyte# 0.51 X10^3/uL; Monocyte% 9.3 % (0-10); NRBC Flagged by Analyzer 0 % (0-5); Neutrophil # 3.09 X10^3/uL (2.7-7.7); Platelet Count 223 K/mm3 (150-450); RBC Distribution Width CV 13.4 % (11.6-14.6); RBC Distribution Width SD 42.7 fl (35.1-43.9); Red Blood Count 5.21 M/mm3 (4.2-5.4); White Blood Count 5.5 K/mm3 (4.4-11.0)
[2023-10-09 10:34] LABS: Anion Gap 5 (5-15); BUN 12 mg/dL (7-18); BUN/Creat Ratio 14.6 RATIO (10-20); Calcium,Total 9.8 mg/dL (8.5-10.1); Chloride 106 mmol/L (98-107); Creatinine, Serum 0.82 mg/dL (0.55-1.02); EST Glomerular Filtration Rate 74 mL/min (>60); Est Glom Filt Rate - Afr Amer 89 mL/min (>60); Estimated Creatinine Clearance 76.11 ml/min; Glucose 99 mg/dL (74-106); Potassium 4.2 mmol/L (3.5-5.1); Sodium Level 138 mmol/L (136-145)
[2023-10-09 10:47] LABS: International Normalized Ratio 1.1; Prothrombin Time (Protime)PT. 14.1 SECONDS (11.7-14.9)
[2023-10-09 11:00] VITALS: BP 141/59; PULSE 72; RESP 16; O2SAT 98
[2023-10-09 12:00] VITALS: BP 134/63; PULSE 81; RESP 16; O2SAT 97
[2023-10-09] MEDS: Tetracaine 0.5% Ophthalmic Bottle 1 DRP OPHTHALMIC (12:32)
[2023-10-09 12:35] VITALS: BP 134/63; PULSE 64; RESP 16; TEMP 36.5; O2SAT 96
== END 2023-10-09 12:36 | disposition home or self-care (01) ==
PROVIDERS: Emergency Provider Emergency Medicine; PCP Physician Assistant; Visit Provider Emergency Medicine
DX: H53.9 Unspecified visual disturbance (principal); I48.0 Paroxysmal atrial fibrillation; I67.1 Cerebral aneurysm, nonruptured; I10 Essential (primary) hypertension; Z87.891 Personal history of nicotine dependence; Z79.82 Long term (current) use of aspirin; Z79.01 Long term (current) use of anticoagulants; Z79.899 Other long term (current) drug therapy
CPT/HCPCS: 70496; 80048; 85025; 85610; 85730; 99285; Q9967

== ENCOUNTER 2024-07-25 14:09 | Observation (INO) | payer OTHER, MEDICARE, SELFPAY ==
[2024-07-25] VITALS (9 sets, daily range): BP systolic 119–164; BP diastolic 53–88; PULSE 48–62; RESP 16–18; TEMP 36.1–37.2; O2SAT 95–98; BMI 32.7; BMI 32.5
--- NOTE | 2024-07-25 15:40 | EX.ED.DYSGE1 ---
HPI History of Present Illness Chief Complaint: Syncope Informant: patient and spouse/S.O. Narrative Narrative: Patient is a 68-year-old female with history of proximal atrial fibrillation (no longer on anticoagulation), hypertension and status post embolization of the cerebral aneurysm with subsequent blindness (this is followed through [facility]). She is presenting today with episode of syncope. notes that she has been dealing with constipation lately. She was straining trying to have bowel movements and when she got up to wash her hand she then fell like she was going to pass out and collapsed to the ground. She was very weak for a minute or 2. She did not actually lose consciousness. Other son who is an EMT checked her blood pressure and initiate was low but then it went to 121/70 (spouse states she runs quite high). She stood up it dropped significantly. Patient denies injuring her self or hitting her head. She denies any focal weakness. Denies any headache. She recently was taken off of her Plavix. Denies any recent fever chills or flulike symptoms. Patient was started on a new antidepression medication about a week ago she has been having issues with sleep regulation and increased daytime somnolence. Chart review shows this was venlafaxine. [facility] Medical History (Updated 07/26/24 @ 01:[address] Shani Herrera, DO) A-fib Glaucoma Hyperlipidemia Obesity GERD (gastroesophageal reflux disease) Essential (primary) hypertension Paroxysmal atrial fibrillation Home Medications ?Medication ?Instructions ?Recorded ?Last Taken ?Type Adrenal 200 mg PO DAILY supplement 04/30/16 07/08/16 History multivitamin 1 ea PO DAILY 04/30/16 07/08/16 History lactobacillus combination no.8 3 3,000 mmu cells PO DAILY 09/22/18 Unknown History billion cell capsule (Adult Probiotic) calcium carb-ergocalciferol (vit 1 tab PO TID 09/19/19 Unknown History D2) 500 mg-125 unit tablet latanoprost 0.005 % eye drops 1 drp ophthalmic (eye) DAILY 09/19/19 Unknown History simvastatin 10 mg tablet 10 mg PO QHS 09/19/19 Unknown History brimonidine 0.2 %-timolol 0.5 % 1 drp ophthalmic (eye) Q12H 05/29/23 Unknown History eye drops dorzolamide 22.3 mg-timolol 6.8 1 drp ophthalmic (eye) BID 10/09/23 Unknown History mg/mL eye drops metoprolol succinate 50 mg 25 mg PO DAILY 10/09/23 Unknown History tablet,extended release 24 hr flecainide 50 mg tablet See Rx Instructions .Route 02/01/24 Unknown Rx .COMPLEX #180 tabs aspirin 325 mg tablet,delayed 325 mg PO DAILY 07/25/24 Unknown History release venlafaxine 37.5 mg 37.5 mg PO QHS 07/25/24 Unknown History capsule,extended release 24 hr Allergy/AdvReac Type Severity Reaction Status Date / Time lisinopril Allergy Unknown Verified 10/09/23 09:04 silver sulfadiazine (From Allergy Unknown Verified 10/09/23 09:04 Renate) Family History Father Hypertension Diabetes Mother Hypertension Cancer lung cancer Brother Hypertension Surgical History (Updated 07/26/24 @ 01:[address] Shani Herrera DO) S/P coil embolization of cerebral aneurysm History of left heart catheterization (05/05/16) History of cholecystectomy Social History Smoking Status: Former smoker alcohol intake: never substance use type: does not use caffeine: Yes Type: coffee Number of servings: 1 eating out: 1-3 times/week what type of physical activity do you participate in: other details: fit board frequency: daily duration: 30-45 minutes/day seatbelt use: always do you feel safe at home: Yes ROS ROS ED Constitutional Constitutional ED: Denies chills or fever(s) Eyes Eyes: Reports other Details: Visual deficits?chronic from cerebral aneurysm ENT ENT ED: Denies rhinorrhea or sore throat Cardiovascular Cardiovascular: Denies chest pain or palpitations Respiratory/Chest Respiratory/Chest: Denies cough or dyspnea Gastrointestinal Gastrointestinal: Reports constipation; Denies nausea or vomiting Musculoskeletal Musculoskeletal: Denies arthralgias or myalgias Integumentary Denies rash Neurologic Neurologic: Reports weakness; Denies headache(s) or paresthesias Hematologic/Lymphatic Hematologic/Lymphatic: Denies easy bleeding or easy bruising EXAM Physical Exam Const Vital Signs: 07/25/24 14:10 07/25/24 15:27 07/25/24 15:32 Temperature 96.9 F L Temperature Source Temporal Pulse Rate 49 L Pulse Rate [Lying] 55 L Pulse Rate [Sitting (for 1 minute prior to obtaining)] 62 Pulse Rate [Standing (for 1 minute prior to obtaining)] 57 L Respiratory Rate 16 Respiratory Pattern Normal Blood Pressure 119/79 Blood Pressure [Lying] 139/72 H Blood Pressure [Sitting (for 1 minute prior to obtaining)] 143/74 H Blood Pressure [Standing (for 1 minute prior to obtaining)] 131/63 H Blood Pressure Mean 92 Blood Pressure Mean [Lying] 94 Blood Pressure Mean [Sitting (for 1 minute prior to obtaining)] 97 Blood Pressure Mean [Standing (for 1 minute prior to obtaining)] 85 Pulse Ox 95 Oxygen Delivery Method Room Air 07/25/24 16:00 07/25/24 17:14 07/25/24 18:00 Temperature Temperature Source Pulse Rate 49 L 48 L 54 L Pulse Rate [Lying] Pulse Rate [Sitting (for 1 minute prior to obtaining)] Pulse Rate [Standing (for 1 minute prior to obtaining)] Respiratory Rate 18 18 Respiratory Pattern Blood Pressure 127/53 H 141/67 H 164/69 H Blood Pressure [Lying] Blood Pressure [Sitting (for 1 minute prior to obtaining)] Blood Pressure [Standing (for 1 minute prior to obtaining)] Blood Pressure Mean 77 91 100 Blood Pressure Mean [Lying] Blood Pressure Mean [Sitting (for 1 minute prior to obtaining)] Blood Pressure Mean [Standing (for 1 minute prior to obtaining)] Pulse Ox 98 97 Oxygen Delivery Method Room Air Room Air 07/25/24 19:26 07/25/24 19:52 07/25/24 19:55 Temperature 98 F 98 F Temperature Source Oral Pulse Rate 53 L 53 L 56 L Pulse Rate [Lying] Pulse Rate [Sitting (for 1 minute prior to obtaining)] Pulse Rate [Standing (for 1 minute prior to obtaining)] Respiratory Rate 17 18 18 Respiratory Pattern Blood Pressure 137/60 H 149/65 H 161/88 H Blood Pressure [Lying] Blood Pressure [Sitting (for 1 minute prior to obtaining)] Blood Pressure [Standing (for 1 minute prior to obtaining)] Blood Pressure Mean 85 93 112 Blood Pressure Mean [Lying] Blood Pressure Mean [Sitting (for 1 minute prior to obtaining)] Blood Pressure Mean [Standing (for 1 minute prior to obtaining)] Pulse Ox 97 98 98 Oxygen Delivery Method Room Air Room Air Positive well nourished and well developed Constitutional Narrative: Mildly somnolent in bed but arouses easily with verbal stimuli, states this is normal for her at this time of day lately General Appearance ED: well developed and NAD; Negative for pallor HEENT Reports moist mucous membranes Eyes PERRL Neck supple and no JVD Chest Wall inspection of chest normal and palpation of chest normal Resp normal respiratory effort and clear to auscultation bilaterally Cardio regular rhythm and no murmurs Rate: bradycardia GI normal to inspection, nondistended, normoactive bowel sounds, non-tender and non-distended Auscultation: normoactive bowel sounds Palpation: soft; Negative for tender or guarding Extremity normal to inspection General Extremety ED: Negative for edema General Extremity: Negative for edema Neuro oriented x3 and no sensory deficits noted Sensorium / Orientation: alert Motor Exam: strength 5/5 throughout and general weakness Psych mental status grossly normal Psych Narrative: Mildly somnolent Skin no rashes or lesions noted and no wounds General Skin Exam: Negative for pallor MDM MDM MDM Narrative Medical decision making narrative: Patient is evaluated for syncopal episode after attempting to have a bowel movement. She is been having issues with constipation. Actually her states that while she is somnolent this is how she is in the afternoon. States she has had issues with day night confusion associated with her blindness which is relatively new over the past year. The ER patient does seem confused and is not as responsive as I would expect. She needs prompting to answer some basic questions. She does not appear to have any focal neurologic deficits. Family at the bedside now states that she actually just had a CT of her brain by neurosurgery at [facility] which shows some slight improvement of her aneurysm. They did want an outpatient MRI to make sure she is not having TIAs given this increased confusion. Reportedly patient has been having odd behavior that is been much worse over the past week including not knowing how to get around her house (normally she would be able to get around quite easily). The other night she tried to have a bowel movement in the chair instead of going to the bathroom. She will spend hours in the shower or bath at night. Given that she just had outpatient neuroimaging I do not think she requires a repeat CT. She has a hard time providing the urine sample was given IV fluids. She is orthostatic negative from syncope workup standpoint. Urinalysis concerning for urinary tract infection with 10-25 white blood cells and 1+ bacteria however is nitrite negative. Urine culture sent and she is placed on Rocephin for this. Given 1 week of acute mental status change in addition to syncope and possible urinary tract infection will admit for further monitoring and evaluation. Family is agreeable this plan of care. Case discussed with hospitalist, Dr. Pack. Lab Data Attestation: I reviewed the patient's lab results. Labs: Laboratory Results - last 24 hr 07/25/24 07/25/24 15:28 16:29 WBC 7.7 RBC 4.85 Hgb 14.0 Hct 42.4 MCV 87.4 MCH 28.9 MCHC 33.0 RDW Std Deviation 44.0 H RDW Coeff of Mika 13.7 Plt Count 207 MPV 10.1 Immature Gran % (Auto) 0.400 Neut % (Auto) 71.9 H Lymph % (Auto) 16.7 L [place] % (Auto) 9.2 Eos % (Auto) 1.0 Baso % (Auto) 0.8 Absolute Neuts (auto) 5.5 Absolute Lymphs (auto) 1.28 Nucleated RBC % 0 Sodium 135 L Potassium 4.0 Chloride 103 Carbon Dioxide 25.0 Anion Gap 7 BUN 14 Creatinine 0.84 Estim Creat Clear Calc 71.74 Est GFR (MDRD) Af Amer 87 Est GFR (MDRD) Non-Af 72 BUN/Creatinine Ratio 16.7 Glucose 101 Calcium 9.5 Urine Color Yellow Urine Clarity Sl. Cloudy Urine pH 7.0 Ur Specific [place] 1.015 Urine Protein 15 H Urine Glucose (UA) Normal Urine Ketones Negative Urine Occult Blood 25 H Urine Nitrite Negative Urine Bilirubin Negative Urine Urobilinogen Normal Ur Leukocyte Esterase 25 H Urine RBC 5-10 SEEN Urine WBC 10-25 SEEN Ur Squamous Epith Cells 0-5 SEEN Amorphous Sediment 1+ Urine Bacteria 1+ Urine Mucus 0 SEEN ABG Data ABG results: ABG 07/25/24 17:17 Specimen Type DEBORAH Sample Site Not entered VBG pH 7.43 H VBG pO2 41 H VBG HCO3 23 VBG Total CO2 24 VBG O2 Sat (Calc) 79 H VBG Base Excess -1 POC Mix VBG pCO2 Pt Tmp 35.0 L O2 Delivery Device Not entered Radiography Diagnostic Testing: Clinical Impression(s) from Imaging Studies Chest X-Ray 07/25/24 16:00 IMPRESSION: No radiographic evidence of acute cardiopulmonary disease. Reading Location: [facility] Rhythm Strip Rhythm Strip: Sinus Rhythm Rate: 50 Ectopy: None EKG Initial EKG: Attestation: I personally reviewed and interpreted this EKG as follows: Interpretation: Sinus Bradycardia Comments: Sinus bradycardia at a rate of 50 bpm Normal axis Normal intervals Normal ST segments Prior EKG tracings: available for review Prior: Unchanged Management Discussion w/another healthcare provider: Hospitalist Discharge Plan Dx/Rx/DC Orders Clinical Impression: Syncope, UTI (urinary tract infection), S/P coil embolization of cerebral aneurysm Disposition Disposition: Acute Care Hospital [facility] Discharge Date/Time: 07/25/24 21:18
[2024-07-25 15:41] LABS: Absolute Lymphocyte Count 1.28 X10^3/uL (0.83-4.51); Absolute Neutrophil Count 5.5 X10^3/uL (2.0-7.7); Basophil# 0.06 X10^3/uL; Basophil% 0.8 % (0-1); Eosinophil# 0.08 X10^3/uL; Hematocrit 42.4 % (37-47); Lymphocyte # 1.28 X10^3/ul (0.83-4.51); Lymphocyte % 16.7 % (19-41); Mean Corpuscular Hgb 28.9 pg (27.0-32.0); Mean Corpuscular Volume 87.4 fL (81-99); Mean Platelet Vol. 10.1 fl (6.2-12.0); Monocyte% 9.2 % (0-10); NRBC Flagged by Analyzer 0 % (0-5); Neutrophil % 71.9 % (47-70); Platelet Count 207 K/mm3 (150-450); RBC Distribution Width CV 13.7 % (11.6-14.6); Red Blood Count 4.85 M/mm3 (4.2-5.4); White Blood Count 7.7 K/mm3 (4.4-11.0)
[2024-07-25 15:56] LABS: Anion Gap 7 (5-15); BUN 14 mg/dL (7-18); BUN/Creat Ratio 16.7 RATIO (10-20); Calcium,Total 9.5 mg/dL (8.5-10.1); Chloride 103 mmol/L (98-107); Creatinine, Serum 0.84 mg/dL (0.55-1.02); EST Glomerular Filtration Rate 72 mL/min (>60); Est Glom Filt Rate - Afr Amer 87 mL/min (>60); Estimated Creatinine Clearance 71.74 ml/min; Glucose 101 mg/dL (74-106); Sodium Level 135 mmol/L (136-145)
--- NOTE | 2024-07-25 16:00 | RAD_ITS ---
PROCEDURE: CHEST PA AND LATERAL REASON FOR EXAM: Near syncope TECHNIQUE: Two views of the chest. COMPARISON: None. FINDINGS: The heart size is normal. There are atherosclerotic calcifications of the thoracic aorta. The lungs are clear. The bones are unremarkable. RAD/Chest PA and Lateral IMPRESSION: No radiographic evidence of acute cardiopulmonary disease. Reading Location: [facility]
[2024-07-25] MEDS: 0.9% Normal Saline (1000mL) 1,000 ML 999 ML IV (17:10)
[2024-07-25 17:21] LABS: Blood Gas Specimen Type VEN; O2 Delivery Device Not entered; SITE Not entered; VBG BASE EXCESS -1 mmol/L (-1.0-3.5); VBG Bicarbonate 23 mmol/L (22-26); VBG PO2 41 mmHg (25-40); VBG SO2 79 % (50-70); VBG TCO2 24 mmol/L (23-33); VBG pH 7.43 (7.32-7.42)
[2024-07-25 18:38] LABS: Mucous, Urine 0 SEEN /hpf (<or=2+)
[2024-07-25 18:47] LABS: Color, Urine Yellow (Yellow); Glucose, Dipstick Normal (Normal); Ketone-Dipstick Negative (Negative); Leukocyte Esterase-Dipstick 25 /ul (Negative); Nitrite-Dipstick Negative (Negative); Occult Blood-Urine 25 /ul (Negative); Protein-Dipstick 15 mg/dl (Negative); Specific Gravity, Urine 1.015 (1.002-1.030); Urine Bilirubin Dipstick Negative (Negative); Urine Clarity Sl. Cloudy (Clear); Urine Urobilinogen Normal (Normal)
[2024-07-25 19:13] LABS: Bacteria 1+ /hpf (None Seen); Squamous Epithelial Cells - UA 0-5 SEEN /hpf (5-10)
[2024-07-25 19:14] LABS: Amorphous Sediment 1+
[2024-07-25 19:15] LABS: White Blood Cells 10-25 SEEN /hpf (0-5)
[2024-07-25 19:16] LABS: Red Blood Cells-Urine 5-10 SEEN /hpf (0-5)
[2024-07-25] MEDS: Ceftriaxone 1 GM/50 ML BAG IV (19:48)
--- NOTE | 2024-07-25 19:50 | HP.PCM_ITS ---
HPI - General General Date of Admission: 07/25/24 Date of Service: 07/25/24 Chief Complaint: syncopal episode HPI Narrative MARY LEONE, is a 68 F with a significant past medical history of paroxysmal atrial fibrillation (no longer anticoagulated), status post embolization of cerebral artery aneurysm with subsequent blindness (followed by [facility] neurology), presents to the emergency room with chief complaint of syncopal episode. For the past 5 days or so she has had increased constipation and was straining to have a bowel movement and when she stood up to wash her hands she felt like she was going to pass out and collapsed to the ground. She was weak and more confused for the next 2 or so minutes. She denies loss of consciousness. Patient denies trauma to the head upon falling and denies any focal neurologic weakness or headache at present time. She denies any fevers or chills, nausea or vomiting. Recently she had been informed that her aneurysm had decreased in size and that she was scheduled to have an outpatient MRI in the next 3 to 4 weeks. She was also recently started on venlafaxine to treat depression approximately 1 week ago. In the emergency room she was diagnosed with urinary tract infection and started on Rocephin and admission for observation due to recent change in mental status was requested. [facility] Medical History (Updated 07/25/24 @ 19:[address] Jairo Pack MD) A-fib Glaucoma Hyperlipidemia Obesity GERD (gastroesophageal reflux disease) Essential (primary) hypertension Paroxysmal atrial fibrillation Home Medications ?Medication ?Instructions ?Recorded ?Last Taken ?Type Adrenal 200 mg PO DAILY supplement 1 06/30/15 07/08/16 History multivitamin 1 ea PO DAILY 04/30/1607/08 History lactobacillus combination no.8 3 3,000 mmu cells PO DA CESARIO 09/22/18 Unknown History billion cell capsule (Adult Probiotic) calcium carb-ergocalciferol (vit 1 tab PO TID 09/19/19 Unknown History D2) 500 mg-125 unit tablet latanoprost 0.005 % eye drops 1 drp ophthalmic (eye) D AILY 09/19/19 Unknown History simvastatin 10 mg tablet 10 mg PO QHS 09/19/19 Unknow n History brimonidine 0.2 %-timolol 0.5 % 1 drp ophthalmic (eye) Q12H 05/29/23 Unknown History eye drops dorzolamide 22.3 mg-timolol 6.8 1 drp ophthalmic (eye) BID 10/09/23 Unknown History mg/mL eye drops metoprolol succinate 50 mg 25 mg PO DAILY 10/09/23 Unk nown History tablet,extended release 24 hr flecainide 50 mg tablet See Rx Instructions .Route 0 02/01/24 Unknown Rx .COMPLEX #180 tabs aspirin 325 mg tablet,delayed 325 mg PO DAILY 07/25/24 Unknown History release venlafaxine 37.5 mg 37.5 mg PO QHS 07/25/24 Unkn own History capsule,extended release 24 hr Allergy/AdvReac Type Severity Reaction Status Date / Time lisinopril Allergy Unknown Verified 10/09/23 09:04 silver sulfadiazine (From Allergy Unknown Verified 10/09/23 09:04 Silvadene) Family History Father Hypertension Diabetes Mother Hypertension Cancer lung cancer Brother Hypertension Surgical History (Updated 07/25/24 @ 19:[address] Jairo Pack MD) S/P coil embolization of cerebral aneurysm History of left heart catheterization (05/05/16) History of cholecystectomy Social History Smoking Status: Former smoker alcohol intake: never substance use type: does not use caffeine: Yes Type: coffee Number of servings: 1 eating out: 1-3 times/week what type of physical activity do you participate in: other details: fit board frequency: daily duration: 30-45 minutes/day seatbelt use: always do you feel safe at home: Yes ROS Constitutional Constitutional: Denies chills or fever(s) Eyes Eyes: Denies change in vision ENT HEENT: Denies abnormal hearing Cardiovascular Cardiovascular: Denies chest pain Respiratory/Chest Respiratory/Chest: Denies cough Gastrointestinal Gastrointestinal: Denies abdominal pain Genitourinary Genitourinary: Denies dysuria Musculoskeletal Musculoskeletal: Denies extremity pain or joint pain Integumentary Integumentary: Denies dry skin Neurologic Neurologic: Reports confusion and weakness; Denies focal weakness Psychiatric Psychiatric: Denies depression Vital Signs Vital Signs Vital Signs: 07/25/24 14:10 07/25/24 15:27 07/25/24 15:32 Temperature 96.9 F L Temperature Source Temporal Pulse Rate 49 L Pulse Rate [Lying] 55 L Pulse Rate [Sitting (for 1 minute prior to obtaining)] 62 Pulse Rate [Standing (for 1 minute prior to obtaining)] 57 L Respiratory Rate 16 Respiratory Pattern Normal Blood Pressure 119/79 Blood Pressure [Lying] 139/72 H Blood Pressure [Sitting (for 1 minute prior to obtaining)] 143/74 H Blood Pressure [Standing (for 1 minute prior to obtaining)] 131/63 H Blood Pressure Mean 92 Blood Pressure Mean [Lying] 94 Blood Pressure Mean [Sitting (for 1 minute prior to obtaining)] 97 Blood Pressure Mean [Standing (for 1 minute prior to obtaining)] 85 Pulse Ox 95 Oxygen Delivery Method Room Air 07/25/24 16:00 07/25/24 17:14 07/25/24 18:00 Temperature Temperature Source Pulse Rate 49 L 48 L 54 L Pulse Rate [Lying] Pulse Rate [Sitting (for 1 minute prior to obtaining)] Pulse Rate [Standing (for 1 minute prior to obtaining)] Respiratory Rate 18 18 Respiratory Pattern Blood Pressure 127/53 H 141/67 H 164/69 H Blood Pressure [Lying] Blood Pressure [Sitting (for 1 minute prior to obtaining)] Blood Pressure [Standing (for 1 minute prior to obtaining)] Blood Pressure Mean 77 91 100 Blood Pressure Mean [Lying] Blood Pressure Mean [Sitting (for 1 minute prior to obtaining)] Blood Pressure Mean [Standing (for 1 minute prior to obtaining)] Pulse Ox 98 97 Oxygen Delivery Method Room Air Room Air 07/25/24 19:26 Temperature Temperature Source Pulse Rate 53 L Pulse Rate [Lying] Pulse Rate [Sitting (for 1 minute prior to obtaining)] Pulse Rate [Standing (for 1 minute prior to obtaining)] Respiratory Rate 17 Respiratory Pattern Blood Pressure 137/60 H Blood Pressure [Lying] Blood Pressure [Sitting (for 1 minute prior to obtaining)] Blood Pressure [Standing (for 1 minute prior to obtaining)] Blood Pressure Mean 85 Blood Pressure Mean [Lying] Blood Pressure Mean [Sitting (for 1 minute prior to obtaining)] Blood Pressure Mean [Standing (for 1 minute prior to obtaining)] Pulse Ox 97 Oxygen Delivery Method Room Air Weight Weight: 196 lb 13.965 oz Body Mass Index (BMI) 32.7 Physical Exam Const alert General Appearance: cooperative and well developed Orientation / Consciousness: confused HEENT normocephalic and head/scalp atraumatic Eyes PERRL and EOMs intact bilaterally Neck no lymphadenopathy Lymph Lymphatic: no lymphadenopathy noted Resp normal respiratory effort, normal air movement and clear to auscultation bilaterally Cardio regular rate, regular rhythm, S1 normal heart sound and S2 normal heart sound GI normal to inspection, nondistended, normoactive bowel sounds Extremity normal capillary refill Skin General Skin Exam: no breakdown Neuro no focal motor deficits and no sensory deficits noted Speech: speech abnormal Details: Positive for other (slow to respond) Motor Exam: strength 5/5 throughout Psych cooperative Mood & Affect: flat affect Results Lab / Micro Data 07/25/24 15:28 07/25/24 15:28 Labs: Laboratory Results - last 24 hr 07/25/24 15:28: WBC 7.7, RBC 4.85, Hgb 14.0, Hct 42.4, MCV 87.4, MCH 28.9, MCHC 33.0, RDW Std Deviation 44.0 H, RDW Coeff of Mika 13.7, Plt Count 207, MPV 10.1, Immature Gran % (Auto) 0.400, Neut % (Auto) 71.9 H, Lymph % (Auto) 16.7 L, [place] % (Auto) 9.2, Eos % (Auto) 1.0, Baso % (Auto) 0.8, Absolute Neuts (auto) 5.5, Absolute Lymphs (auto) 1.28, Nucleated RBC % 0, Sodium 135 L, Potassium 4.0, Chloride 103, Carbon Dioxide 25.0, Anion Gap 7, BUN 14, Creatinine 0.84, Estim Creat Clear Calc 71.74, Est GFR (MDRD) Af Amer 87, Est GFR (MDRD) Non-Af 72, BUN/Creatinine Ratio 16.7, Glucose 101, Calcium 9.5 07/25/24 16:29: Urine Color Yellow, Urine Clarity Sl. Cloudy, Urine pH 7.0, Ur Specific [place] 1.015, Urine Protein 15 H, Urine Glucose (UA) Normal, Urine Ketones Negative, Urine Occult Blood 25 H, Urine Nitrite Negative, Urine Bilirubin Negative, Urine Urobilinogen Normal, Ur Leukocyte Esterase 25 H, Urine RBC 5-10 SEEN, Urine WBC 10-25 SEEN, Ur Squamous Epith Cells 0-5 SEEN, Amorphous Sediment 1+, Urine Bacteria 1+, Urine Mucus 0 SEEN Micro: Microbiology 02/17/25 17:05 Mucosa - Nose SARS-CoV-2, Influenza & RSV (PCR) - Final ABG Data ABG results: ABG 07/25/24 17:17 Specimen Type DEBORAH Sample Site Not entered VBG pH 7.43 H VBG pO2 41 H VBG HCO3 23 VBG Total CO2 24 VBG O2 Sat (Calc) 79 H VBG Base Excess -1 POC Mix VBG pCO2 Pt Tmp 35.0 L O2 Delivery Device Not entered Rhythm Strip Rhythm Strip: Sinus Rhythm Rate: 50 Ectopy: None Imaging Radiology Impression Chest X-Ray 07/25/24 16:00 IMPRESSION: No radiographic evidence of acute cardiopulmonary disease. Reading Location: [facility] Assessment & Plan Assessment/Plan (1) Paroxysmal atrial fibrillation: (2) Essential (primary) hypertension: (3) Hyperlipidemia: (4) UTI (urinary tract infection): (5) Syncope: PLAN: Plan 1 syncopal episode?admit patient to progressive care unit for observation?initiate neurologic evaluations every 4 hours, order MRI of the head to be done in the morning to rule out intracranial process related to her near syncopal episode. Will hold new antidepressant medication for now. 2. Constipation?add MiraLAX 3. Urinary tract infection?Rocephin 1 g IV every 24 hours. This may be related to her current confusion and will observe her for resolution. 4. Hypertension?continue routine home medication 5. Hyperlipidemia?continue statin medication 6. DVT prophylaxis?will use SCDs Charges/Coding Visit Charges OBSV E&M: 43234 Observ/hosp same date L2
--- NOTE | 2024-07-25 21:23 | CASEMGMT ---
Care Management Face to Face with patient for initial transition planning/care coordination assessment in the ED. 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 Patient sitting up in bed, but sleeping on and off. Patient's son, John, and , Serenity, bedside. Patient's and son helped with answering questions. Care providers, pharmacy, and demographics verified. Admitting Diagnosis: UTI, Syncope Other diagnosis history: paroxysmal atrial fibrillation (no longer anticoagulated), status post embolization of cerebral artery aneurysm with subsequent blindness (followed by [facility] neurology) PCP: Jessi TOWNSEND Specialists: Dr. Villa, neurologist [facility] Preferred Pharmacy: [facility]. Insurance: Medicare A only (primary). C[employer] (secondary). Prescription Benefit: yes Living Will/HPOA: none, denies needing information. LNOK: Serenity. 4 children (2 local, Yesi and John) Living Arrangements: with in a ranch style home, 1 step to enter, independent with all ADLs to a point (patient's reports patient struggles sometimes, but could manage living alone) Transportation: patient's or son drive patient. DME: none HHC: none SNF/Rehab: none Community Resources: none Patient goals: Patient wishes to discharge home, denies need for home health care at this time. Patient denies any further needs or concerns at this time. Disposition Plan: admission to acute; RN CM/SW to follow for discharge planning needs that may arise. Tootie Samano, MEDICAL DONATION PROFESSIONAL, AUTO TRANSMISSION MECHANIC
[2024-07-25] MEDS: Atorvastatin Calcium 10 MG Tablet 5 MG PO (23:18)
[2024-07-25] MEDS: Flecainide 100 MG Tablet 50 MG PO (23:19)
[2024-07-25] MEDS: Latanoprost 0.005% 1 Bottle 1 DRP EACH EYE (23:19)
[2024-07-25] MEDS: Calcium Carb/Vitamin D 1 TABLET Tablet PO (23:19)
[2024-07-25] MEDS: Dorzolamide HCL/Timolol 10 ml Bottle 1 DRP EACH EYE (23:20)
[2024-07-26] VITALS (7 sets, daily range): BP systolic 113–138; BP diastolic 49–74; PULSE 45–60; RESP 14–20; TEMP 36.6–37.1; O2SAT 94–98
[2024-07-26 04:35] LABS: Absolute Lymphocyte Count 1.34 X10^3/uL (0.83-4.51); Absolute Neutrophil Count 5.5 X10^3/uL (2.0-7.7); Basophil# 0.03 X10^3/uL; Basophil% 0.4 % (0-1); Eosinophils% 1.3 % (0-5); Hematocrit 41.8 % (37-47); Hemoglobin 14.1 g/dL (12.0-15.0); Lymphocyte # 1.34 X10^3/ul (0.83-4.51); Lymphocyte % 17.7 % (19-41); Mean Corp Hgb Conc 33.7 g/dL (32-36); Mean Corpuscular Hgb 28.7 pg (27.0-32.0); Mean Platelet Vol. 10.6 fl (6.2-12.0); Monocyte# 0.59 X10^3/uL; Monocyte% 7.8 % (0-10); NRBC Flagged by Analyzer 0 % (0-5); Neutrophil # 5.48 X10^3/uL (2.7-7.7); Neutrophil % 72.4 % (47-70); Platelet Count 211 K/mm3 (150-450); RBC Distribution Width CV 13.3 % (11.6-14.6); RBC Distribution Width SD 41.7 fl (35.1-43.9); Red Blood Count 4.92 M/mm3 (4.2-5.4); White Blood Count 7.6 K/mm3 (4.4-11.0)
[2024-07-26 04:42] LABS: Magnesium 2.1 mg/dL (1.6-2.6)
[2024-07-26 04:48] LABS: Anion Gap 9 (5-15); BUN 11 mg/dL (7-18); BUN/Creat Ratio 16.5 RATIO (10-20); Calcium,Total 9.1 mg/dL (8.5-10.1); Chloride 102 mmol/L (98-107); Creatinine, Serum 0.67 mg/dL (0.55-1.02); EST Glomerular Filtration Rate 94 mL/min (>60); Est Glom Filt Rate - Afr Amer 113 mL/min (>60); Estimated Creatinine Clearance 75.02 ml/min; Glucose 108 mg/dL (74-106); Potassium 3.7 mmol/L (3.5-5.1); Sodium Level 135 mmol/L (136-145)
[2024-07-26] MEDS: Flecainide 100 MG Tablet 50 MG PO (08:56)
[2024-07-26] MEDS: Metoprolol(XL)Succ 25 MG Tablet PO (08:57)
[2024-07-26] MEDS: Aspirin E.C. 325 MG Tablet PO (08:57)
[2024-07-26] MEDS: Lactobacillis Acidophilus 1 CAP PO (08:58)
[2024-07-26] MEDS: Dorzolamide HCL/Timolol 10 ml Bottle 1 DRP EACH EYE (09:00)
--- NOTE | 2024-07-26 09:30 | MRI_ITS ---
EXAM: BRAIN WITHOUT CONTRAST CLINICAL HISTORY: Syncope COMPARISON: Correlation with CT head dated 10/09/2023. TECHNIQUE: PROCEDURE: Multiplanar sequences of the brain were obtained on a 1.5 Kay MRI system, including T1, T2, FLAIR, DWI, and ADC. No intravenous contrast was administered. IV CONTRAST: FINDINGS: MRI BRAIN: No intraparenchymal hemorrhage is evident. No focus of restricted diffusion is identified to suggest acute or early subacute ischemia. 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 There is increased T2 and FLAIR weighted signal about the aneurysm. The basal cisterns are visualized. The ventricles and cortical sulci are in proportion and consistent with the patient's age. There is no signal abnormality in the barrios or white matter. The midline structures demonstrate normal contours. The craniocervical junction is unremarkable. The flow voids of the large intracranial vessels are normal. The calvarium is unremarkable. The paranasal sinuses and mastoid air cells are clear. MRI/Brain without Contrast IMPRESSION: 1. No MR evidence of acute ischemia. 2. 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 Reading Location: [facility]
[2024-07-26] MEDS: Calcium Carb/Vitamin D 1 TABLET Tablet PO (12:35)
--- NOTE | 2024-07-26 13:42 | NEURO.CONS ---
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 On evaluation, syncope appears to be unlikely related to seizure or other event as was short lived and recovery quick. However patient has had progressive 2 month worsening of abulia, anhedonia, and MRI Brain with worsening aneurysm margins with edema and spread across to the L temoporal lobe now. Concern that this enlargening of the aneurysm is associated with these new symptoms. Syncope could be related to some increased ICP from the compression. Unfortinately, unclear how acute this growth is as there has been almost a year between MRIs (last one in October of last year). Would recommend repeating a CTH and comparing to recent CTH to assess how acute this change is. Plan: - CTH to evaluate and compare to prior CTH as assess if how acute the growth has been - agree with routine EEG If abnormal, consider transfer to [facility] to be evaluated by Neurosurgery. I personally attended this patient and spent a total time of 45 minutes evaluating this patient including clinical assessment, review of chart, medical history imaging, and determining appropriate treatment and workup. 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 For the past 5 days or so she has had increased constipation and was straining to have a bowel movement and when she stood up to wash her hands she felt like she was going to pass out and collapsed to the ground. She was weak and more confused for the next 2 or so minutes. She denies loss of consciousness. Patient denies trauma to the head upon falling and denies any focal neurologic weakness or headache at present time. She denies any fevers or chills, nausea or vomiting. Recently she had been informed that her aneurysm had decreased in size and that she was scheduled to have an outpatient MRI in the next 3 to 4 weeks. She was also recently started on venlafaxine to treat depression approximately 1 week ago. In the emergency room she was diagnosed with urinary tract infection and started on Rocephin and admission for observation due to recent change in mental status was requested. Neurologic History: Pt states she was brushing her teeth and felt like she could not stand there and they got a chair and she sat in chair for a bit. Did not pass out per her. Never had a sensation like this. Did not have room spinning sensation, did not have numbness or tingling, no focal weakness. Currently feels back to normal. she's not sure how long it took her to fell back to normal. Currently does feel like she has a headache but has them normally. She cannot remember when her last headache was. She is very reluctant to talk. She denies a history of seizures. after talking with her , she [facility] Medical History (Updated 08/03/24 @ 00:02 by Maame Taylor) A-fib Glaucoma Hyperlipidemia Obesity GERD (gastroesophageal reflux disease) Essential (primary) hypertension Paroxysmal atrial fibrillation Home Medications ?Medication ?Instructions ?Recorded ?Last Taken ?Type Adrenal 200 mg PO DAILY supplement 04/30/16 07/08/16 History multivitamin 1 ea PO DAILY 04/30/16 07/08/16 History lactobacillus combination no.8 3 3,000 mmu cells PO DAILY 09/22/18 Unknown History billion cell capsule (Adult Probiotic) calcium carb-ergocalciferol (vit 1 tab PO TID 09/19/19 Unknown History D2) 500 mg-125 unit tablet latanoprost 0.005 % eye drops 1 drp ophthalmic (eye) DAILY 09/19/19 Unknown History simvastatin 10 mg tablet 10 mg PO QHS 09/19/19 Unknown History brimonidine 0.2 %-timolol 0.5 % 1 drp ophthalmic (eye) Q12H 05/29/23 Unknown History eye drops dorzolamide 22.3 mg-timolol 6.8 1 drp ophthalmic (eye) BID 10/09/23 Unknown History mg/mL eye drops metoprolol succinate 50 mg 25 mg PO DAILY 10/09/23 Unknown History tablet,extended release 24 hr flecainide 50 mg tablet See Rx Instructions .Route 02/01/24 Unknown Rx .COMPLEX #180 tabs aspirin 325 mg tablet,delayed 325 mg PO DAILY 07/25/24 Unknown History release venlafaxine 37.5 mg 37.5 mg PO QHS 07/25/24 Unknown History capsule,extended release 24 hr Allergy/AdvReac Type Severity Reaction Status Date / Time lisinopril Allergy Unknown Verified 10/09/23 09:04 silver sulfadiazine (From Allergy Unknown Verified 10/09/23 09:04 Silvadene) Family History Father Hypertension Diabetes Mother Hypertension Cancer lung cancer Brother Hypertension Surgical History (Updated 08/03/24 @ 00:02 by Maame Taylor) S/P coil embolization of cerebral aneurysm History of left heart catheterization (05/05/16) History of cholecystectomy Social History Smoking Status: Former smoker alcohol intake: never substance use type: does not use caffeine: Yes Type: coffee Number of servings: 1 eating out: 1-3 times/week what type of physical activity do you participate in: other details: fit board frequency: daily duration: 30-45 minutes/day seatbelt use: always do you feel safe at home: Yes Vital Signs Vital Signs Vital Signs: 07/25/24 14:10 07/25/24 15:27 07/25/24 15:32 Temperature 96.9 F L Temperature Source Temporal Pulse Rate 49 L Pulse Rate [Lying] 55 L Pulse Rate [Sitting (for 1 minute prior to obtaining)] 62 Pulse Rate [Standing (for 1 minute prior to obtaining)] 57 L Respiratory Rate 16 Respiratory Effort Respiratory Depth Respiratory Pattern Normal Blood Pressure 119/79 Blood Pressure [Lying] 139/72 H Blood Pressure [Sitting (for 1 minute prior to obtaining)] 143/74 H Blood Pressure [Standing (for 1 minute prior to obtaining)] 131/63 H Blood Pressure Mean 92 Blood Pressure Mean [Lying] 94 Blood Pressure Mean [Sitting (for 1 minute prior to obtaining)] 97 Blood Pressure Mean [Standing (for 1 minute prior to obtaining)] 85 Blood Pressure Source Blood Pressure Position Blood Pressure Location Pulse Ox 95 Oxygen Delivery Method Room Air 07/25/24 16:00 07/25/24 17:14 07/25/24 18:00 Temperature Temperature Source Pulse Rate 49 L 48 L 54 L Pulse Rate [Lying] Pulse Rate [Sitting (for 1 minute prior to obtaining)] Pulse Rate [Standing (for 1 minute prior to obtaining)] Respiratory Rate 18 18 Respiratory Effort Respiratory Depth Respiratory Pattern Blood Pressure 127/53 H 141/67 H 164/69 H Blood Pressure [Lying] Blood Pressure [Sitting (for 1 minute prior to obtaining)] Blood Pressure [Standing (for 1 minute prior to obtaining)] Blood Pressure Mean 77 91 100 Blood Pressure Mean [Lying] Blood Pressure Mean [Sitting (for 1 minute prior to obtaining)] Blood Pressure Mean [Standing (for 1 minute prior to obtaining)] Blood Pressure Source Blood Pressure Position Blood Pressure Location Pulse Ox 98 97 Oxygen Delivery Method Room Air Room Air 07/25/24 19:26 07/25/24 19:52 07/25/24 19:55 Temperature 98 F 98 F Temperature Source Oral Pulse Rate 53 L 53 L 56 L Pulse Rate [Lying] Pulse Rate [Sitting (for 1 minute prior to obtaining)] Pulse Rate [Standing (for 1 minute prior to obtaining)] Respiratory Rate 17 18 18 Respiratory Effort Respiratory Depth Respiratory Pattern Blood Pressure 137/60 H 149/65 H 161/88 H Blood Pressure [Lying] Blood Pressure [Sitting (for 1 minute prior to obtaining)] Blood Pressure [Standing (for 1 minute prior to obtaining)] Blood Pressure Mean 85 93 112 Blood Pressure Mean [Lying] Blood Pressure Mean [Sitting (for 1 minute prior to obtaining)] Blood Pressure Mean [Standing (for 1 minute prior to obtaining)] Blood Pressure Source Blood Pressure Position Blood Pressure Location Pulse Ox 97 98 98 Oxygen Delivery Method Room Air Room Air 07/25/24 21:30 07/26/24 04:10 07/26/24 07:48 Temperature 98.9 F 98.8 F Temperature Source Oral Oral Pulse Rate 58 L 55 L Pulse Rate [Lying] Pulse Rate [Sitting (for 1 minute prior to obtaining)] Pulse Rate [Standing (for 1 minute prior to obtaining)] Respiratory Rate 18 20 H Respiratory Effort Respiratory Depth Respiratory Pattern Blood Pressure 149/57 H 138/52 H Blood Pressure [Lying] Blood Pressure [Sitting (for 1 minute prior to obtaining)] Blood Pressure [Standing (for 1 minute prior to obtaining)] Blood Pressure Mean 87 80 Blood Pressure Mean [Lying] Blood Pressure Mean [Sitting (for 1 minute prior to obtaining)] Blood Pressure Mean [Standing (for 1 minute prior to obtaining)] Blood Pressure Source Blood Pressure Position Blood Pressure Location Pulse Ox 97 96 94 Oxygen Delivery Method Room Air Room Air Room Air 07/26/24 08:47 07/26/24 08:54 07/26/24 08:57 Temperature 98 F Temperature Source Oral Pulse Rate 57 L 60 Pulse Rate [Lying] Pulse Rate [Sitting (for 1 minute prior to obtaining)] Pulse Rate [Standing (for 1 minute prior to obtaining)] Respiratory Rate 15 Respiratory Effort Normal Non-Labored Respiratory Depth Normal Respiratory Pattern Normal Blood Pressure 129/74 H Blood Pressure [Lying] Blood Pressure [Sitting (for 1 minute prior to obtaining)] Blood Pressure [Standing (for 1 minute prior to obtaining)] Blood Pressure Mean 92 Blood Pressure Mean [Lying] Blood Pressure Mean [Sitting (for 1 minute prior to obtaining)] Blood Pressure Mean [Standing (for 1 minute prior to obtaining)] Blood Pressure Source Monitor Blood Pressure Position Semi-Fowlers Blood Pressure Location Left Arm Pulse Ox 96 Oxygen Delivery Method Room Air Room Air Weight Weight: 88.6 kg Body Mass Index (BMI) 32.5 EEG Results Procedure Details EEG Procedure Details: MARY LEONE is a 68 year old F with a past medical history of , who presents for evaluation of Electroencephalogram on DATE at TIME NIHSS NIHSS Nursing Documentation NIHSS Nursing Documentation: NIHSS: Ischemic Stroke/TIA Start: 07/26/24 08:40 Freq: Status: Complete Protocol: Activity Type Activity Date Activity User E-sign Co-sign Detail Recorded Client Recorded Date Recorded By Document 07/26/24 08:40 DS [id number] 07/26/24 08:41 DS 07/26/24 08:40 NIH Stroke Scale [NIHSS] A score of 0 is normal or asymptomatic . Total possible score is 42. Inpatient: RN or Physician to activate a stroke alert for onset of new stroke symptoms or with NIHSS increase >/= 3 points. Following change in neurological status, NIHSS will be performed per physician order or more frequently PRN. -1a. Level of Consciousness Alert; keenly responsive -1b. LOC Questions Answers BOTH questions correctly. -1c. LOC Commands Performs both tasks correctly . -2. Best Gaze Normal -3. Visual Bilateral hemianopia ( blind, including cortical blindness) -4. Facial Palsy Normal symmetrical movements -5a. Left Arm No drift; arm holds 90 (or 45 ) degrees for full 10 seconds -5b. Right Arm No drift; arm holds 90 (or 45 ) degrees for full 10 seconds -6a. Left Leg No drift; leg holds 30-degree position for full 5 seconds -6b. Right Leg No drift; leg holds 30-degree position for full 5 seconds -7. Limb Ataxia Absent -8. Sensory Normal; no sensory loss -9. Best Language No aphasia; normal -10. Dysarthria Normal -11. Extinction and Inattention No abnormality -Total 3 Query Text:A score of 0 is normal or asymptomatic. Total possible score is 42 . ED: Notify Physician for NIHSS increase by > / = 3 points. Inpatient: RN or Physician to activate a stroke alert for NIHSS increase of > / = 3 points. Coma Scale [Assess] -Eye Opening Spontaneous -Motor Obeys Commands -Verbal Oriented [Total] -Coma Scale Total 15 Physical Exam Narrative -? General: Laying comfortably in bed; in no acute distress. -? HENT: Normal oropharynx and mucosa. Normal external appearance of ears and nose. Exophthalmos. -? Neck: Supple, no pain or tenderness -? CV:? No peripheral edema. -? Pulmonary:? Normal respiratory effort. -? Ext: No cyanosis, edema, or deformity -? Skin: No rash. Normal palpation of skin.? -? Musculoskeletal: full range of motion; no joint tenderness. Normal digits and nails by inspection. No clubbing. -? NEURO: -? Mental Status: The patient was alert and oriented to time, place, and person. Normal recent/remote memory, concentration, and general fund of knowledge. -? Language: speech is low and quiet but clear? Naming, repetition, fluency, and comprehension intact. -? Cranial Nerves: EOMI, visual manning full, no facial asymmetry, facial sensation intact, hearing intact, tongue midline, no evidence of atrophy or fibrillations. -? Motor: normal bulk, tone, and strength throughout. No pronator drift or satelliting. Upper and lower extremities equal bilaterally. -?Detailed strength exam as performed by the nurse/FRANK and witnessed by the physician: R L SA 5 5 EE 5 5 EF WE WF Talent Recruiter 5 5 HF KE KF DF PF -? Tone: is normal and bulk is normal -? Sensation- Intact to light touch bilaterally -? Coordination: No dysmetria on [id number], finger follow finger or [id number]. -? Gait- deferred Lab / Micro Data 07/26/24 04:00 07/26/24 04:00 Labs: Laboratory Results - last 24 hr 07/25/24 15:28: WBC 7.7, RBC 4.85, Hgb 14.0, Hct 42.4, MCV 87.4, MCH 28.9, MCHC 33.0, RDW Std Deviation 44.0 H, RDW Coeff of Mika 13.7, Plt Count 207, MPV 10.1, Immature Gran % (Auto) 0.400, Neut % (Auto) 71.9 H, Lymph % (Auto) 16.7 L, Towns % (Auto) 9.2, Eos % (Auto) 1.0, Baso % (Auto) 0.8, Absolute Neuts (auto) 5.5, Absolute Lymphs (auto) 1.28, Nucleated RBC % 0, Sodium 135 L, Potassium 4.0, Chloride 103, Carbon Dioxide 25.0, Anion Gap 7, BUN 14, Creatinine 0.84, Estim Creat Clear Calc 71.74, Est GFR (MDRD) Af Amer 87, Est GFR (MDRD) Non-Af 72, BUN/Creatinine Ratio 16.7, Glucose 101, Calcium 9.5 07/25/24 16:29: Urine Color Yellow, Urine Clarity Sl. Cloudy, Urine pH 7.0, Ur Specific [place] 1.015, Urine Protein 15 H, Urine Glucose (UA) Normal, Urine Ketones Negative, Urine Occult Blood 25 H, Urine Nitrite Negative, Urine Bilirubin Negative, Urine Urobilinogen Normal, Ur Leukocyte Esterase 25 H, Urine RBC 5-10 SEEN, Urine WBC 10-25 SEEN, Ur Squamous Epith Cells 0-5 SEEN, Amorphous Sediment 1+, Urine Bacteria 1+, Urine Mucus 0 SEEN 07/26/24 04:00: WBC 7.6, RBC 4.92, Hgb 14.1, Hct 41.8, MCV 85.0, MCH 28.7, MCHC 33.7, RDW Std Deviation 41.7, RDW Coeff of Mika 13.3, Plt Count 211, MPV 10.6, Immature Gran % (Auto) 0.400, Neut % (Auto) 72.4 H, Lymph % (Auto) 17.7 L, Towns % (Auto) 7.8, Eos % (Auto) 1.3, Baso % (Auto) 0.4, Absolute Neuts (auto) 5.5, Absolute Lymphs (auto) 1.34, Nucleated RBC % 0, Sodium 135 L, Potassium 3.7, Chloride 102, Carbon Dioxide 24.0, Anion Gap 9, BUN 11, Creatinine 0.67, Estim Creat Clear Calc 75.02, Est GFR (MDRD) Af Amer 113, Est GFR (MDRD) Non-Af 94, BUN/Creatinine Ratio 16.5, Glucose 108 H, Calcium 9.1, Magnesium 2.1 Micro: Microbiology 07/25/24 16:29 Urine, Clean Catch Urine Culture - Preliminary Culture exhibits no growth. 07/25/24 17:05 Mucosa - Nose SARS-CoV-2, Influenza & RSV (PCR) - Final ABG Data ABG results: ABG 07/25/24 17:17 Specimen Type DEBORAH Sample Site Not entered VBG pH 7.43 H VBG pO2 41 H VBG HCO3 23 VBG Total CO2 24 VBG O2 Sat (Calc) 79 H VBG Base Excess -1 POC Mix VBG pCO2 Pt Tmp 35.0 L O2 Delivery Device Not entered Rhythm Strip Rhythm Strip: Sinus Rhythm Rate: 50 Ectopy: None Imaging Radiology Impression Chest X-Ray 07/25/24 16:00 IMPRESSION: No radiographic evidence of acute cardiopulmonary disease. Reading Location: [facility] Brain MRI 07/26/24 09:30 IMPRESSION: 1. No MR evidence of acute ischemia. 2. 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 Reading Location: [facility] Active Medications Active Medications Active Medications: Current Medications Generic Name Dose Route Start Last Admin Trade Name Khadra PRN Reason Stop Dose Admin Aspirin 325 mg 07/26/24 08:00 07/26/24 08:57 Aspirin E.C. 325 Mg Tablet PO 325 mg DAILYCM DAVID Administration Atorvastatin Calcium 5 mg 07/25/24 22:00 07/25/24 23:18 Atorvastatin Calcium 10 Mg Tablet PO 5 mg QHS DAVID Administration Calcium/Vitamin D 1 tablet 07/26/24 08:00 07/26/24 12:35 Calcium Carb/Vitamin D 1 Tablet Tablet PO 1 tablet TIDCM DAVID Administration Dorzolamide/Timolol 1 drp 07/25/24 22:00 07/26/24 09:00 Dorzolamide Hcl/Timolol 10 Ml Bottle EACH EYE 1 drp BID DAVID Administration Flecainide Acetate 50 mg 07/25/24 22:00 07/26/24 08:56 Flecainide 100 Mg Tablet PO 50 mg Q12 DAVID Administration Ceftriaxone Sodium 1 gm in 50 mls @ 100 mls/hr 07/26/24 22:00 Rocephin IV 2200 DAVID Sodium Chloride 100 mls @ 15 mls/hr 07/25/24 21:47 IV .Q6H40M PRN Saline Flush Sodium Chloride 100 mls @ 15 mls/hr 07/25/24 21:47 IV .Q6H40M PRN Additional IVPB Infusion Latanoprost 1 drp 07/25/24 22:00 07/25/24 23:19 Latanoprost 0.005% 1 Bottle EACH EYE 1 drp QHS ADVID Administration Metoprolol Succinate 25 mg 07/26/24 10:00 07/26/24 08:57 Metoprolol(Xl)Succ 25 Mg Tablet PO 25 mg DAILY DAVID Administration Protocol Ondansetron HCl 4 mg 07/25/24 21:26 Ondansetron 4 Mg/2 Ml Vial IV Q8H PRN PRN NAUSEA/VOMITING Sodium Chloride 10 - 40 ml 07/25/24 21:47 0.9% Saline Lock 10 Ml Syringe IV UD PRN SALINE FLUSH
--- NOTE | 2024-07-26 14:20 | CHAPLAIN ---
Type of Pastoral Visit _x__ Initial Visit ___ Follow-up Visit ___ On-call Visit ___ General Patient Visit ___ Spiritual Assessment ___ Family Conference ___ Bereavement ___ Rapid Response ___ Code Blue ___ Other (describe below) Pastoral Care Referral From _x__ Patient ___ Family ___ Nurse ___ Physician ___ Drug Abuse Resistance Education Officer ___ Record Label Internship ___ Other (describe below) Sacrament/Intervention _x__ Active listening ___ Anointing ___ Jehovah'S Witness ___ Bereavement ___ Communion ___ Janis exploration ___ ___ Life review _x__ Prayer ___ Reconciliation ___ Sacrament of Sick _x__ Supportive presence ___ Wedding _x__ Other (describe below) Pastoral Comments patient is sitting near the window in a quiet room; this dairy technologist introduces self and reason for visit in addition to giving information about the room and where sitting and what is nearby; pt greets the dairy technologist; pt is asked a series of questions about her health, feelings, worries, needs, support, and resources that bring her comfort and help; pt responds very slowly; pt shows very little emotion but when she does her face shows some 'far off' gaze or serious contemplation; pt admits to having worries about her future and the unknown but cannot articulate further what that means to her or how she might face these; pt does not give much in detail or concise information; pt may be evasive or having difficulty discerning her thoughts and feelings; pt states that she thinks she is coping well 'but my family doesn't think so'; pt lists music, family, and janis in God as her 'go to' for comfort and peace; prayer is welcomed; pt used to attend shinto but does not any longer
[2024-07-26] MEDS: Acetaminophen 325 MG Tablet 650 MG PO (15:03)
--- NOTE | 2024-07-26 16:00 | CT_ITS ---
EXAM: BRAIN/HEAD WITHOUT CONTRAST CLINICAL HISTORY: Re-evaluate brain aneurysm COMPARISON: 10/09/2023. TECHNIQUE: Noncontrast images of the head with multiplanar reconstructions. Dose reduction techniques were used including intermediate exposure control (AEC),iterative reconstruction technique, and/or mA and/or KV dose adjustments based on patient's size. FINDINGS: CT HEAD FINDINGS: Coil is noted within the right supraclinoid region causing streak artifact and limiting evaluation. Within this limitation, lower hyperdensity is noted within the right supraclinoid region measuring 5.1 x 3.9 x 5.4 cm. There is no significant midline shift or herniation.. No hydrocephalus. Age- appropriate cerebral volume and white matter. Visualized paranasal sinuses and mastoid air cells are clear. The calvarium is grossly intact. CT/Brain/Head without Contrast IMPRESSION: 1. Interval increase in size of the right supraclinoid aneurysm with associate d hemorrhage. Coil artifact is again noted. No evidence of herniation or midline shift. Findings communicated to Carmina Denney RN on 07/26/24 at 1637 hours. Reading Location: [facility]
--- NOTE | 2024-07-26 16:14 | CASEMGMT ---
Met with patient to complete PA form. PA form explained to patient who voiced understanding and signed form. Original form placed in pt?s chart and copy provided to patient. Katty العلي, Discharge Planning Asst
--- NOTE | 2024-07-26 16:15 | PN.HOSP_ITS ---
Reason for Visit Reason for Visit: Diagnoses Hyperlipidemia, unspecified (07/25/24) Essential (primary) hypertension (07/25/24) Paroxysmal atrial fibrillation (07/25/24) Urinary tract infection, site not specified (07/25/24) Syncope and collapse (07/25/24) Objective Data Objective Data Vital Signs: Vital Signs Temp Pulse Resp BP Pulse Ox O2 Del Method 98 F 60 15 129/74 H 96 Room Air 07/26/24 08:54 07/26/24 08:57 07/26/24 08:54 07/26/24 08:54 07/26/24 08:54 07/26/24 08:54 Oxygen Delivery Method Room Air Weight: 88.6 kg Body Mass Index (BMI) 32.5 Intake & Output: Intake and Output for Last 24 Hours 07/24/24 07/25/24 07/26/24 23:59 23:59 23:59 Intake Total 1050 / 1050 375 / 375 Output Total 0 / 0 Balance 1050 / 1050 375 / 375 Lab / Micro Data 07/26/24 04:00 07/26/24 04:00 Labs: Laboratory Results - last 24 hr 07/25/24 16:29: Urine Color Yellow, Urine Clarity Sl. Cloudy, Urine pH 7.0, Ur Specific [place] 1.015, Urine Protein 15 H, Urine Glucose (UA) Normal, Urine Ketones Negative, Urine Occult Blood 25 H, Urine Nitrite Negative, Urine Bilirubin Negative, Urine Urobilinogen Normal, Ur Leukocyte Esterase 25 H, Urine RBC 5-10 SEEN, Urine WBC 10-25 SEEN, Ur Squamous Epith Cells 0-5 SEEN, Amorphous Sediment 1+, Urine Bacteria 1+, Urine Mucus 0 SEEN 07/26/24 04:00: WBC 7.6, RBC 4.92, Hgb 14.1, Hct 41.8, MCV 85.0, MCH 28.7, MCHC 33.7, RDW Std Deviation 41.7, RDW Coeff of Mika 13.3, Plt Count 211, MPV 10.6, Immature Gran % (Auto) 0.400, Neut % (Auto) 72.4 H, Lymph % (Auto) 17.7 L, Maries % (Auto) 7.8, Eos % (Auto) 1.3, Baso % (Auto) 0.4, Absolute Neuts (auto) 5.5, Absolute Lymphs (auto) 1.34, Nucleated RBC % 0, Sodium 135 L, Potassium 3.7, Chloride 102, Carbon Dioxide 24.0, Anion Gap 9, BUN 11, Creatinine 0.67, Estim Creat Clear Calc 75.02, Est GFR (MDRD) Af Amer 113, Est GFR (MDRD) Non-Af 94, BUN/Creatinine Ratio 16.5, Glucose 108 H, Calcium 9.1, Magnesium 2.1 Micro: Microbiology 07/25/24 16:29 Urine, Clean Catch Urine Culture - Preliminary Culture exhibits no growth. 07/25/24 17:05 Mucosa - Nose SARS-CoV-2, Influenza & RSV (PCR) - Final ABG Data ABG results: ABG 07/25/24 17:17 Specimen Type DEBORAH Sample Site Not entered VBG pH 7.43 H VBG pO2 41 H VBG HCO3 23 VBG Total CO2 24 VBG O2 Sat (Calc) 79 H VBG Base Excess -1 POC Mix VBG pCO2 Pt Tmp 35.0 L O2 Delivery Device Not entered Radiography Diagnostic Testing: Radiology Impression Chest X-Ray 07/25/24 16:00 IMPRESSION: No radiographic evidence of acute cardiopulmonary disease. Reading Location: [facility] Brain MRI 07/26/24 09:30 IMPRESSION: 1. No MR evidence of acute ischemia. 2. 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 Reading Location: [facility] Rhythm Strip Rhythm Strip: Sinus Rhythm Rate: 50 Ectopy: None
--- NOTE | 2024-07-26 16:48 | PCM.DC.SUM ---
Providers Date of Admission: 07/25/24 Date of Discharge: 07/26/24 Primary Care Physician: KRISTIAN Lockwood Consultations 07/26/24 12:36 Tele [Consult: Tele-Neurology] Routine Consulting Provider: [facility] Reason for Consult: syncopal episode, cerebral aneurysm w/ surrounding edema EMERGENT Consult: No MD Notified: Yes Date Notified: 07/26/24 Time Notified: 12:55 Method of Notification: Answering Service Nursing Unit Staff Notify [facility] of Tele-Neurology Consult: Yes Reason For Visit: SYNCOPAL EPISODE Diagnosis Discharge Diagnosis (1) Paroxysmal atrial fibrillation: Status: Chronic Code(s): I48.0 - Paroxysmal atrial fibrillation (2) Essential (primary) hypertension: Status: Chronic Code(s): I10 - Essential (primary) hypertension (3) Hyperlipidemia: Status: Chronic Code(s): E78.5 - Hyperlipidemia, unspecified (4) UTI (urinary tract infection): Status: Acute Code(s): N39.0 - Urinary tract infection, site not specified (5) Syncope: Status: Acute Code(s): R55 - Syncope and collapse Medications at Discharge Home Medications Adrenal 200 mg PO DAILY supplement 04/30/16 multivitamin 1 ea PO DAILY 04/30/16 lactobacillus combination no.8 3 billion cell capsule (Adult Probiotic) 3,000 mmu cells PO DAILY 09/22/18 calcium carb-ergocalciferol (vit D2) 500 mg-125 unit tablet 1 tab PO TID 09/19/19 latanoprost 0.005 % eye drops 1 drp ophthalmic (eye) DAILY 09/19/19 simvastatin 10 mg tablet 10 mg PO QHS 09/19/19 brimonidine 0.2 %-timolol 0.5 % eye drops 1 drp ophthalmic (eye) Q12H 05/29/23 dorzolamide 22.3 mg-timolol 6.8 mg/mL eye drops 1 drp ophthalmic (eye) BID 10/09/23 metoprolol succinate 50 mg tablet,extended release 24 hr 25 mg PO DAILY 10/09/23 flecainide 50 mg tablet See Rx Instructions .Route .COMPLEX #180 tabs 02/01/24 aspirin 325 mg tablet,delayed release 325 mg PO DAILY 07/25/24 venlafaxine 37.5 mg capsule,extended release 24 hr 37.5 mg PO QHS 07/25/24 Hospital Course Operations None Procedures EKG and - (Chest x-ray, CT brain, MRI brain) Summary of Care Provided Minutes Spent on Discharge: 35 Hospital Course: Patient is a 68-year-old female who presented [facility] ED on 07/25/2024 after a syncopal episode at home. Hospital course as notable low. Patient transferred to [facility] on 07/26. 1. 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 Neurology followed. 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 Presented with syncopal episode as noted below. MRI brain showed previously treated aneurysm that now appears larger with surrounding edema. CT brain without contrast on 07/26 confirmed interval increase in size of aneurysm with associated hemorrhage. Transferred to [facility] urgently on 07/26. 2. Syncopal episode ? Suspect related to worsening aneurysm with hemorrhage as noted above. Only mild ectopy noted while inpatient that was not concerning. 3. Concern for UTI ? UA mildly infectious appearing on admit. Unclear if patient having symptoms. Treated with IV ceftriaxone while here. 4. Paroxysmal A-fib, hypertension, hyperlipidemia ? Not on anticoagulation due to aneurysm as noted above. Holding home aspirin. Okay to continue home statin, Toprol and flecainide. 5. Depression ? Continue home venlafaxine. Total clinical time spent by myself addressing the patient's medical issues, reviewing all the data, and collaborating with patient's care team: 35 minutes. Physical Exam Const alert, oriented x3 and no apparent distress Constitutional Narrative: Upper middle-aged female, blind, class I obesity, sitting up comfortably in bedside chair, answering some questions appropriately but also not responding to some questions at all, otherwise in no acute distress. General Appearance: cooperative and comfortable HEENT normocephalic, head/scalp atraumatic, hearing grossly normal bilaterally, nasal mucous membranes and turbinates normal and moist oral mucous membranes Eyes EOMs intact bilaterally and conjunctivae normal Eyes Narrative: Blind. Neck full ROM Chest inspection of chest normal Resp normal respiratory effort, normal air movement, no use of accessory muscles and clear to auscultation bilaterally Cardio regular rate, regular rhythm, no murmurs and peripheral pulses 2+ throughout GI normal to inspection, nondistended, normoactive bowel sounds, soft to palpation, non-tender and non-distended Back/Spine normal ROM Extremity normal to inspection, full ROM and no pedal edema Skin no rashes or lesions noted Neuro moves all extremities and no focal motor deficits Speech: speech normal Weight / BMI Weight Weight: 88.6 kg Body Mass Index (BMI) 32.5 ABG / Lab / Microbiology Data 07/26/24 04:00 07/26/24 04:00 Laboratory: Laboratory Results - last 24 hr 07/25/24 16:29: Urine Color Yellow, Urine Clarity Sl. Cloudy, Urine pH 7.0, Ur Specific [place] 1.015, Urine Protein 15 H, Urine Glucose (UA) Normal, Urine Ketones Negative, Urine Occult Blood 25 H, Urine Nitrite Negative, Urine Bilirubin Negative, Urine Urobilinogen Normal, Ur Leukocyte Esterase 25 H, Urine RBC 5-10 SEEN, Urine WBC 10-25 SEEN, Ur Squamous Epith Cells 0-5 SEEN, Amorphous Sediment 1+, Urine Bacteria 1+, Urine Mucus 0 SEEN 07/26/24 04:00: WBC 7.6, RBC 4.92, Hgb 14.1, Hct 41.8, MCV 85.0, MCH 28.7, MCHC 33.7, RDW Std Deviation 41.7, RDW Coeff of Mika 13.3, Plt Count 211, MPV 10.6, Immature Gran % (Auto) 0.400, Neut % (Auto) 72.4 H, Lymph % (Auto) 17.7 L, [place] % (Auto) 7.8, Eos % (Auto) 1.3, Baso % (Auto) 0.4, Absolute Neuts (auto) 5.5, Absolute Lymphs (auto) 1.34, Nucleated RBC % 0, Sodium 135 L, Potassium 3.7, Chloride 102, Carbon Dioxide 24.0, Anion Gap 9, BUN 11, Creatinine 0.67, Estim Creat Clear Calc 75.02, Est GFR (MDRD) Af Amer 113, Est GFR (MDRD) Non-Af 94, BUN/Creatinine Ratio 16.5, Glucose 108 H, Calcium 9.1, Magnesium 2.1 Microbiology: Microbiology 07/25/24 16:29 Urine, Clean Catch Urine Culture - Preliminary Culture exhibits no growth. 07/25/24 17:05 Mucosa - Nose SARS-CoV-2, Influenza & RSV (PCR) - Final ABG: ABG 07/25/24 17:17 Specimen Type DEBORAH Sample Site Not entered VBG pH 7.43 H VBG pO2 41 H VBG HCO3 23 VBG Total CO2 24 VBG O2 Sat (Calc) 79 H VBG Base Excess -1 POC Mix VBG pCO2 Pt Tmp 35.0 L O2 Delivery Device Not entered Radiography Diagnostic Testing: Radiology Impression Brain MRI 07/26/24 09:30 IMPRESSION: 1. No MR evidence of acute ischemia. 2. 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 Reading Location: [facility] Brain CT 07/26/24 16:00 IMPRESSION: 1. Interval increase in size of the right supraclinoid aneurysm with associated hemorrhage. Coil artifact is again noted. No evidence of herniation or midline shift. Findings communicated to Carmina Denney RN on 07/26/24 at 1637 hours. Reading Location: [facility] D/C Instructions DC O2, CPAP, BIPAP Needs Home O2 Discharge instructions: No Meaningful Use Info Meaningful Use Meaningful Use Diagnoses (Choose all that apply): None applicable Ischemic Stroke Statin Dosing Therapy Reference: STATIN DOSE THERAPY REFERENCE: * Patients > 75 years receive moderate or high dose statin therapy. * Patients 75 years or YOUNGER should receive HIGH intensity statin dose unless contraindicated. You will be required to document reason for non-treatment if statin daily dose does not meet guidelines. HIGH DOSE STATIN THERAPY DAILY Atorvastatin > than or = to 40 mg Rosuvastatin > than or = to 20 mg Amlodipine + Atorvastatin > than or = to 2.5/40 mg Ezetimibe + Simvastatin 10/80 mg Simvastatin 80mg Discharge Plan Admission Admit Date/Time: 07/25/24 20:01 Primary Reason for Your Visit: Syncopal episode Attending Provider: Hermes Forrester Primary Care Provider: Jessi Moy Consulting Providers: Jairo Pack; Abel Day; Harriett Conte; Roselia Muñoz; Katy Sanders; Jessica Gil; Hever Smyth; Luisa Wells; David Valerio; Judah Montero; Ze Julio; Jadyn Combs; Román Ramirez; Lexis Gonzales; Terra Young; Mounika Siddiqui; Adrian Manrique; Dave Deutsch; Tavo Mathias; Pricila Vidal; Patricia Bynum; Haylee Shukla; Jose G Olsen; Eddie Del Angel; TAO COYLE; Nickolas Vaca; Cristy Garcia Discharge Orders/Prescriptions Prescriptions: Continued Adult Probiotic 3 billion cell capsule 3,000 mmu cells PO DAILY latanoprost 0.005 % drops 1 drp OPHTHALMIC DAILY simvastatin 10 mg tablet 10 mg PO QHS Patient Comments: TAKE ONE TABLET WITH EVENING MEAL OR AT BEDTIME calcium carbonate-vitamin D2 500-125 mg-unit tablet 1 tab PO TID Adrenal 200 mg PO DAILY multivitamin 1 EACH tablet 1 ea PO DAILY brimonidine-timolol 0.2-0.5 % drops 1 drp ophthalmic (eye) Q12H Patient Comments: INSTILL 1 DROP INTO BOTH EYES TWICE A DAY dorzolamide-timolol 22.3-6.8 mg/mL drops 1 drp ophthalmic (eye) BID metoprolol succinate 50 mg tablet extended release 24 hr 25 mg PO DAILY venlafaxine 37.5 mg capsule,extended release 24hr 37.5 mg PO QHS aspirin 325 mg tablet,delayed release (DR/EC) 325 mg PO DAILY flecainide 50 mg tablet See Rx Instructions .ROUTE .COMPLEX Qty: 180 3RF Dose Instruction: TAKE 1 TAB BY MOUTH EVERY 12 HOURS Rx Instructions: TAKE 1 TAB BY MOUTH EVERY 12 HOURS Referrals / Follow Up: Jessi Moy PA [Primary Care Provider] - Disposition Disposition (needs filled in before D/C Order can be placed): Acute Care Hospital Charges/Coding Visit Charges Inpatient E&M: 47056 Disch Hosp >30min
--- NOTE | 2024-07-26 18:35 | NURSING ---
[facility] requesting clarification if patient to be transported via helicopter. Notified that Dr. Forrester requesting patient to be flown. [facility] to arrange transport via med flight.
--- NOTE | 2024-07-26 18:50 | NURSING ---
Med flight ETA 25 minutes.
--- NOTE | 2024-07-26 19:44 | NURSING ---
report given to [facility] placed on cot report called
--- NOTE | 2024-07-26 19:48 | NURSING ---
Son and daughter called and notified that patient left via lifeflight. Notified the family of patient's room number at the [facility].
--- NOTE | 2024-07-26 19:58 | NURSING ---
report called to Henrry Rn at [facility] room [facility] neuro critical care
--- NOTE | 2024-07-26 23:46 | NURSING ---
[facility] called asking for information on medications given during pt stay. accessed pt's chart after d/c to provide data to them.
== END 2024-07-26 19:45 | disposition short-term general hospital (02) ==
LOC: ED 15:12 → MS3 20:20 → PCU 20:46
PROVIDERS: Admitting Provider Family Medicine; Emergency Provider Emergency Medicine; PCP Physician Assistant; Referring Provider Family Medicine; Visit Provider Hospitalist
DX: I67.1 Cerebral aneurysm, nonruptured (principal); G93.6 Cerebral edema; I48.0 Paroxysmal atrial fibrillation; N39.0 Urinary tract infection, site not specified; E78.5 Hyperlipidemia, unspecified; Z87.891 Personal history of nicotine dependence; I10 Essential (primary) hypertension; Z79.82 Long term (current) use of aspirin; R55 Syncope and collapse; K21.9 Gastro-esophageal reflux disease without esophagitis; Z79.899 Other long term (current) drug therapy; H54.7 Unspecified visual loss; K59.00 Constipation, unspecified; F32.A Depression, unspecified
CPT/HCPCS: 99285; 36415; 70450; 70551; 71046; 80048; 81001; 82803; 83735; 85025; 87086; 87088; 87631; 93005; 96361; 96365; 96366; 97162; 97166; 99221; A4216; G0378

== ENCOUNTER 2024-09-08 09:55 | Outpatient (RCR) | payer OTHER, SELFPAY ==
--- NOTE | 2024-09-08 11:00 | HP.OTEVAL ---
Patient's Visit Information Visit Information Visit Information: MARY LEONE is a 68 year old F, referred to Occupational Therapy by TRAE GALEANA MD, with a diagnosis of Aneurysm. Date of Evaluation: 09/08/24 Occupational Therapist: Janelle Gee Subjective Subjective: This 68 year old female arrives with dx of aneurysm which occurred late 2022 beginning of 2023. Pt with embolization as well as stent x2. pt recently in hospital mid jul for UTI. Pt states she is able to get dressed on own as well as using bathroom and washing self. Pt states her R side is weaker pt is R hand dominant. pt has had x1 fall in past 6 months due to stepping off of a curb. pt does not use any AD as means of mobility. denies numbness and tingling of UEs. Objective Objective/Observation: arrives able to walk back to OT section no AD needs guidance from due to legally blind ROM ROM Comments: all within functional limits Strength Shoulder: L shoulder flexion 12.1# R shoulder [id number]# Elbow: L bicep 23.5# R bicep 22.6# L tricep 10.6# R tricep 11.7# Chief Accountant: R 30# L 40# Lateral Pinch: R and L 8# Tripod Pinch: R and L 5# Strength Comments: L ER 16.2# R ER 11.1# Edema Other: denies Sensation Sensation Comments: denies Nine [place] Peg Comments: denies Quick DASH-Disab of Arm,Shoulder& Hand Quick DASH Score: 22.7250 Goals Goal:: pt will improve B shoulder flexion strength by 2# or more in order to perform day to day tasks pt will improve B bicep strength by 2# or more in order to perform day to day tasks pt will improve B tricep strength by 2# or more in order to perform day to day tasks Goal:: pt will improve quick dash score by 5 points or more for improved overall use of BUEs Goal:: Pt/ caregiver will demo 100% carryover in UB strengthening HEP program by discharge pt will score morning self care routine in modified dyspnea scale as 3 or less Rehabilitation General Assessment: This 68 year old female arrives with dx of aneurysm. Pt demonstrated deficits in overall UB strength as well as overall aerobic capacity. OT indicated for 2-3 session within 3 weeks to set up strengthening program and provide caregiver education. Rehabilitation Potential: Good Anticipated Interventions Anticipated Interventions: Strengthening, Caregiver Training and Home Program Visit Plan Frequency: 2-3 session Duration: 3 Weeks General Plan: HEP aerobic capacity TEXT: Thank you for the opportunity to evaluate your patient. For Medicare and Medicare HMO plans, please review the plan of care and approve it. It will need to be FAXED BACK to us at [phone] for Medicare purposes. Please let me know if there are questions or concerns regarding this plan of care. Physician Signature: Date:
--- NOTE | 2025-01-10 14:33 | HP.OT.NRP ---
Patient Information Patient Information: MARY LEONE was seen in my office for initial evaluation on 09/08/24. The following Plan of Care was established for this patient: POC Established Initial Frequency: 2-3 session Initial Duration: 3 Weeks Anticipated Interventions Anticipated Interventions: Strengthening, Caregiver Training and Home Program Last Seen Last Seen: This patient was last seen in our office 09/08/24. Pertinent comments regarding their Occupational therapy will appear below: This 69 year old female arrives with dx of aneurysm. pt seen for evaluation only does not schedule additional visits after this. discharge due to lapse in time of services. At this point I will be discontinuing this patient from occupational therapy. I would be happy to see this patient again in the future if found appropriate by the physician. Thank you! Janelle Gee
== END 2024-09-08 19:00 | disposition home or self-care (01) ==
LOC: OT 09:55
PROVIDERS: PCP Physician Assistant; Referring Provider Neurological Surgery; Visit Provider Neurological Surgery
DX: I72.9 Aneurysm of unspecified site (principal)
CPT/HCPCS: 97166

== ENCOUNTER → 2024-11-17 | Outpatient (CLI) | payer OTHER, SELFPAY ==
--- NOTE | 2024-11-17 06:15 | CT_ITS ---
PROCEDURE: BRAIN/HEAD WITHOUT CONTRAST 11/17/2024 REASON FOR EXAM: HX CEREBRAL ANEURYSM, VISION LOSS TECHNIQUE: Head CT without intravenous contrast. Coronal and Sagittal reconstruction series were provided. One or more dose reduction techniques were used (e.g., Automated exposure control, adjustment of the mA and/or kV according to patient size, use of iterative reconstruction technique. RADIATION DOSE SUMMARY: CTDlvol: 44.9 mGy DLP: 796 mGycm COMPARISON: CT scan on 07/26/2024. MRI on 07/26/2024. FINDINGS: Coil is noted within the right supraclinoid region causing streak artifact and limiting evaluation. Within this limitation, lower hyperdensity is noted within the right supraclinoid region measuring 5.1 x 3.9 x 5.4 cm. There is no significant midline shift or herniation. Normal size of the ventricles and extra-axial spaces for the patient's age. Normal basal ganglia and thalami. Normal brainstem. Normal cerebellum. There is no demonstrated extra-axial, intraparenchymal, or intraventricular hemorrhage. There are no findings of an acute ischemic infarction. Normal calvarium. There is no demonstrated fracture. Normal soft tissue structures. Normal visualized paranasal sinuses. CT/Brain/Head without Contrast IMPRESSION: Coil is again noted within the right supraclinoid region causing streak artifac t and limiting evaluation. Within this limitation, lower hyperdensity is noted within the right supraclinoid region measuring 5.1 x 3.9 x 5.4 cm, probably unchanged. Secondary moderate compression of the pre chiasmatic optic nerves, chiasm and p ost chiasmatic tracts. Reading Location: [id number]
--- OUTSIDE RECORDS SUMMARY | 2024-11-17 06:19 | XMS RPT_ITS | CCD ---
Author Organization [facility] Care Team Providers Care Lowerator Operator Name Role Phone Romi RN, Katty Stone Unavailable Unavailable Romi WHALEY, Katty Stone Unavailable Unavailable Anju Almaguer Unavailable Anju Almaguer Unavailable Unavailable Primary Care Provider Unavailmarques Moy PA-C, Ganga Andrade Unavailable [phone] Chinmay COLON, Ganga Andrade Unavailable Nargis RAMEY, Dr. Long Unavailable Geovanni RAMEY, Kiko Stone Unavailable Dermatology Provider Unavailable Unavailable Cinthya Mueller RN Unavailable Unavailable Cj COLON, Mily Andrade Unavailable Christopher RAMEY, Mac Clark Unavailable Ellis AMBULANCE ASSISTANT, Becky Becerra Unavailable Unavailable Mumtaz AMBULANCE ASSISTANT, Lolly C Unavailable Unavailable Antonino AMBULANCE ASSISTANT, Caryn Unavailable Unavailable Kimberli WHALEY, Sussy L Unavailable Unavail able Lee AMBULANCE ASSISTANT, Ashley Unavailable Unavaila ble Nikko AMBULANCE ASSISTANT, Brea Unavailable Unavailable Mayelin WHALEY, Flakita Stone Unavailable Unavaila ble Nii WHALEY, Halle Y Unavailable Unavailable Banks, Cinthya L Unavailable Ale AMBULANCE ASSISTANT, Nandini L Unavailable Unavailab jumana Nicole AMBULANCE ASSISTANT, Noni Ford Unavailable Unavailab jumana Yi AMBULANCE ASSISTANT, Rach Huang Unavailable Unavailab Brea Houston MA Unavailable Unavailable Nettie AMBULANCE ASSISTANT, Maisha Unavailable Unavailabl e Vidhya AMBULANCE ASSISTANT, Luisana Lowe Unavailable Unavaila ble Unavailable Unavailable KRISTIAN Cruz Primary Care Provider KRISTIAN Cruz Referring Provider Dr. Jensne Agrawal Attending Provider [phone] [phone] Unavailable Primary Care Provider Unavailabl e PROVIDER, UNKNOWN Attending Unavailable PROVIDER, UNKNOWN Admitting Unavailable Ganga Moy PA-C J Primary Care Provider Jessie Yung LPN Unavailable Unavailabl Chayito Ortiz Unavailable Unavailable Martha RABAGO, Genie Unavailable [facility] Attending Unavailable Chayito Escalante Unavailable Unavailable Physical Therapy Provider Unavailable Unavai obdulia Occupational Therapy Provider Unavailable Un available NIMJEE, JI M Referring Unavailable CONSTABLEBRUCE Attending Unavailable MOY, GANGA J Primary Care Unavailable MOY, GANGA J Primary Care Unavailable KIERSTEN, MAC M Referring Unavailable KIERSTEN, MAC M Attending Unavailable MOY, GANGA J Primary Care Unavailable KIERSTEN, MAC M Referring Unavailable KIERSTEN, MAC M Attending Unavailable NIMJEE, JI M Attending Unavailable NIMJEE, JI M Admitting Unavailable MOY, GANGA J Primary Care Unavailable CONSULT, OPHTHALMOLOGY Consulting Unavailab JACK Soler Attending Unavailable BRUCE LOUISE Attending Unavailable JOHNNYABLEBRUCE Referring Unavailable MOY, GANGA J Primary Care Unavailable DALJIT HAWTHORNE Attending Unavailable DALJIT HAWTHORNE Admitting Unavailable MOY, GANGA J Primary Care Unavailable NIMJEE, JI M Referring Unavailable MOY, GANGA J Primary Care Unavailable NIMJEE, JI M Attending Unavailable MOY, GANGA J Primary Care Unavailable TAVARES NATH Referring Unavailable NIMJEE, JI M Attending Unavailable MOY, GANGA J Primary Care Unavailable NIMJEE, JI M Attending Unavailable MOY, GANGA J Referring Unavailable MOY, GANGA J Primary Care Unavailable NIMJEE, JI M Referring Unavailable NIMJEE, JI M Attending Unavailable BRUCE LOUISE Referring Unavailable CONSTABLEBRUCE Attending Unavailable MOY, GANGA J Primary Care Unavailable CONSTABLEBRUCE Referring Unavailable CONSTABLEBRUCE R Attending Unavailable MOY, GANGA J Primary Care Unavailable CONSTABLEBRUCE Attending Unavailable BRUCE LOUISE Referring Unavailable MOY, GANGA J Primary Care Unavailable MOY, GANGA J Primary Care Unavailable DARI KELLER Referring Unavailable NIMJEE, JI M Attending Unavailable NIMJEE, JI M Admitting Unavailable MOY, GANGA J Primary Care Unavailable NIMNYAE, JI M Attending Unavailable MOY, GANGA J Primary Care Unavailable JACK TRAVIS Referring Unavailable NIMJI NEFF M Attending Unavailable CONSULT, PSYCHIATRY Consulting Unavailable KEY COPE Admitting Unavailable MOY, GANGA J Primary Care Unavailable MAC BURCH Attending Unavailable MAC BURCH Referring Unavailable MOY, GANGA J Primary Care Unavailable NIMJEE, JI M Admitting Unavailable NIMJEE, JI M Referring Unavailable NIMNYAE, JI M Attending Unavailable DARIUS HAYNES MD Admitting UnavailDARIUS Garcia MD Primary Care Unavailabl DARIUS Gardner MD Attending Unavailabl e MOY, GANGA J Consulting Unavailable PROVIDER, UNKNOWN Consulting Unavailable MOY, GANGA J Primary Care Unavailable MOY, GANGA J Consulting Unavailable MOY, GANGA J Attending Unavailable MOY, GANGA J Admitting Unavailable PROVIDER, UNKNOWN Consulting Unavailable MOY, GANGA J Consulting Unavailable MOY, GANGA J Attending Unavailable MOY, GANGA J Admitting Unavailable MOY, GANGA J Primary Care Unavailable PROVIDER, UNKNOWN Consulting Unavailable MOY, GANGA J Primary Care Unavailable MOY, GANGA J Consulting Unavailable MOY, GANGA J Attending Unavailable MOY, GANGA J Admitting Unavailable PROVIDER, UNKNOWN Consulting Unavailable Moy PA, Ganga Primary Care Unavailable Vince Delatorre Attending Unavailable Moy PA, Ganga Primary Care Unavailable NIMJEE, JI Attending Unavailable NIMJEE, JI Referring Unavailable Moy PA, Ganga Primary Care Unavailable Jairo Pack Referring Unavailable Sirena, Jairo Admitting Unavailable Jairo Pack Consulting Unavailable Jack Travis Attending Unavailable Abel Day Consulting Unavailable Adeli, Amir Consulting Unavailable Hinduja, Roselia Consulting Unavailable Tommy, Katy Consulting Unavailable Louise, Jessica Consulting Unavailable Haja, Hever Consulting Unavailable Russell, Liusa Consulting Unavailable David Valerio Consulting Unavailable Judah Montero Consulting Unavailable Ze Julio Consulting Unavailable Jadyn Combs Consulting Unavailable Román Ramirez Consulting Unavailable Lexis Gonzales Consulting Unavailable Terra Young Consulting Unavailable Mounika Siddiqui Consulting UnavailAdrian Enriquez Consulting Unavailable Dave Deutsch Consulting Unavailable Tavo Mathias Consulting Unavailable Pricila Vidal Consulting Unavailable Patricia Bynum Consulting Unavailable Haylee Shukla Consulting Unavailable Jose G Olsen Consulting Unavailable Eddie Del Angel Consulting Unavailable TAO NAIK Consulting Unavailable Nickolas Vaca Consulting Unavailable Cristy Garcia Consulting Unavailable Ganga Cruz Primary Care Unavailable Sirena, Jairo Referring Unavailable Pack, Jairo Admitting Unavailable Sirena, Jairo Attending Unavailable Jairo Pack Consulting Unavailable Ganga Cruz Primary Care Unavailable Jairo Pack Referring Unavailable Sirena, Jairo Admitting Unavailable Jairo Pack Consulting Unavailable Jack Travis Attending Unavailable Abel Day Consulting Unavailable Harriett Conte Consulting Unavailable Roselia Muñoz Consulting Unavailable Katy Sanders Consulting Unavailable Jessica Gil Consulting Unavailable Hever Smyth Consulting Unavailable Luisa Wells Consulting Unavailable David Valerio Consulting Unavailable Judah Montero Consulting Unavailable Ze Julio Consulting Unavailable Jadyn Combs Consulting Unavailable Román Ramirez Consulting Unavailable Lexis Gonzales Consulting Unavailable Terra Young Consulting Unavailable Mounika Siddiqui Consulting UnavailAdrian Enriquez Consulting Unavailable Dave Deutsch Consulting Unavailable Tavo Mathias Consulting Unavailable Pricila Vidal Consulting Unavailable Patricia Bynum Consulting Unavailable Haylee Shukla Consulting Unavailable Jose G Olsen Consulting Unavailable Eddie Del Angel Consulting Unavailable TAO NAIK Consulting Unavailable Nickolas Vaca Consulting Unavailable Cristy Garcia Consulting Unavailable Jack Travis Consulting Unavailable NEUROPSYCHOLOGY, PROVIDER Unavailable Unavai lable Allergies Allergy Classification Reported Allergen(s) Allergy Type Date of Onset Reaction(s) Facility Angiotensin Converting Enzyme (JUJU) Inhibitors (2 sources) Lisinopril Drug Allergy [facility], [facility] Sulfonamides (antibiotic) (2 sources) silver sulfADIAZINE Drug Allergy [facility], [facility].; [facility], [facility]. (20 sources) lisinopril; Translations: [lisinopril] drug allergy 1 Other (See Comments), [facility] [email or web address] Work Phone: (4 sources) silver sulfADIAZINE; Translations: [SILVADENE CREAM] food allergy 1 [email or web address] Work Phone: (8 sources) Sulfonamides (Antibiotic) drug allergy 1 [facility] Work Phone: (8 sources) HCTZ drug allergy 1 [facility] Work Phone: (20 sources) silver sulfADIAZINE Drug Allergy 7 Other (See Comments) [facility] Work Phone: (20 sources) [facility] (9 sources) oxyCODONE Drug Allergy 4 Hallucination [facility] (1 source) silver sulfADIAZINE Drug Allergy 4 [facility] Repository Medications Current Medications Medication Drug Class(es) Dates Sig (Normalized) Sig (Original) acetaminophen 325 mg oral tablet (20 sources) Start: 07-29-2024 take 2 tablets by mouth every four hours as needed Acetaminophen 325 MG tablet Take 2 tablets by mouth every 4 hours as needed for Mild Pain or Other (Oral temp > 99.5 F). 07/29/2024 Active Start: 07-26-2024 End: 07-29-2024 take 1 tablet by mouth every four hours as needed Acetaminophen (TYLENOL) tablet 650 mg Start: 11-21-2023 End: 07-27-2024 take 1 tablet by mouth every six hours as needed acetaminophen 650 MG Tab CR Take 1 tablet by mouth every 6 hours as needed for Mild Pain for up to 7 days. 28 tablet 11/21/2023 07/27/2024 Discontinued (Medication Reconciliation (suppress cancel msg)) Start: 11-20-2023 End: 11-21-2023 take 1 tablet by mouth every four hours as needed 650 mg, Oral, EVERY 4 HOURS NEEDED, Starting on 11/20/23 at 1824, Until 11/21/23 at 1349, Mild Pain, Moderate Pain, Maximum dose of acetaminophen is 4000 mg from all sources in 24 hours. Start: 10-29-2023 End: 10-29-2023 take 1 tablet by mouth every six hours as needed Acetaminophen (TYLENOL) tablet 650 mg Start: 10-16-2023 End: 10-17-2023 take 1 tablet by mouth every four hours as needed 650 mg, Oral, EVERY 4 HOURS NEEDED, Starting on 10/16/23 at 1639, Until 10/17/23 at 1947, Mild Pain, Oral temp > 100.4 F, Maximum dose of acetaminophen is 4000 mg from all sources in 24 hours. Start: 05-31-2023 End: 11-21-2023 take 2 tablets by mouth every four hours as needed Acetaminophen 325 MG tablet Take 2 tablets by mouth every 4 hours as needed for Mild Pain or Other (Oral temp > 99.5 F). 0 05/31/2023 11/21/2023 Discontinued (Stop Taking at Discharge) Start: 05-30-2023 End: 05-31-2023 take 1 tablet by mouth every four hours as needed Acetaminophen (TYLENOL) tablet 650 mg Adrenal (20 sources) Start: 04-30-2016 take 200 mg by mouth once daily Adrenal Active 200 MG PO DAILY April 30, 2016 1:00am Start: 04-30-2016 take 200 mg by mouth once carrie y Adrenal Active 200 MG PO DAILY April 30, 2016 12:00am Adrenal aspirin 81 mg delayed release oral tablet (20 sources) Nonsteroidal Anti-inflammatory Drug Start: 07-29-2024 take 4.0123 tablets by mouth once daily Aspirin [address] tablet Take 4.0123 tablets by mouth daily. 30 tablet 07/29/2024 Active Start: 03-02-2024 End: 07-29-2024 take 1 tablet by mouth once daily Aspirin [address] tablet Take 1 tablet by mouth daily. 90 tablet 3 03/02/2024 07/29/2024 Discontinued Start: 11-11-2023 End: 01-20-2024 take 1 tablet by mouth once daily aspirin EC [address] tablet DR Take 1 tablet by mouth daily. 30 tablet 1 11/21/2023 Active Start: 10-09-2023 take 81 mg by mouth once daily Aspirin Active 81 MG PO DAILY October 09, 2023 12:00am Start: 09-14-2017 End: 01-23-2022 take 81 mg by mouth once daily Aspirin Discontinued 81 MG PO daily September 14, 2017 12:00am January 23, 2022 2:15pm Start: 03-13-2017 take 1 tablet by aubrey once daily ASPIRIN EC 81 MG TBEC One tablet by mouth daily ASPIRIN [id number] Brea Cartwright PA-C Start: 04-30-2016 End: 09-14-2017 take 325 mg by mouth once daily Aspirin Discontinued 3 25 MG PO DAILY April 30, 2016 1:00am September 14, 2017 4:56pm Start: 11-22-2010 End: 09-04-2016 take 1 tablet by mouth once daily ASPIRIN 325 MG TABS One tablet by mouth daily ASPIRIN [id number] Elsa Vallejo aspirin 325 mg c apsule ; daily (325 mg) End: 11-21-2023 aspirin 81 MG Chew Tab chewa ble tablet Chew 1 tablet daily. 11/21/2023 Discontinued (Stop Taking at Discharge) brimonidine / Timolol (3 sources) alpha-Adrenergic Agonist, beta-Adrenergic Joss Start: 05-29-2023 Brimonidine-Tramaine lol Active 1 DRP OPHTHALMIC Q1H May 29, 2023 1:00am Start: 05-29-2023 Brimonidine-Ti molol Active 1 DRP OPHTHALMIC Q1H May 29, 2023 12:00am calcium carb-ergocalciferol (vit D2) 500 mg-125 unit tablet (3 sources) Start: 09-19-2019 take 1 tablet by mouth three times daily calcium carb-ergocalciferol (vit D2) 500 mg-125 unit tablet Active 1 TABLET PO THREE TIMES A DAY September 19, 2019 12:00am Start: 09-19-2019 take 1 tablet by aubrey th three times daily calcium carb-ergocalciferol (vit D2) 500 mg-125 unit tablet Active 1 TABLET PO THREE TIMES A DAY September 18, 2019 11:00pm calcium carbonate 1250 mg oral tablet (20 sources) take 1 tablet by mouth twice daily Calcium 500 MG Oral Tablet ; 1 two times daily (500 MG) dorzolamide 20 mg/ml / timolol 5 mg/ml ophthalmic solution (14 sources) Carbonic Anhydrase Inhibitor, beta-Adrenergic Joss Start: 10-09-2023 Dorzolamide-Timolol Active 1 DRP OPHTHALMIC TWICE A DAY October 09, 2023 12:00am Start: 09-28-2023 dorzolamide-ti molol 2-0.5 % Solution ophthalmic solution Place 1 drop in both eyes 2 times daily. 09/28/2023 Active Lactobacillus Combination No.8 (Adult Probiotic) 3 billion cell capsule (3 sources) Start: 09-22-2018 take 3 capsules by mouth once daily Lactobacillus Combination No.8 (Adult Probiotic) 3 billion cell capsule Active 3000 MMU CELLS PO DAILY September 22, 2018 12:00am Start: 09-22-2018 take 3 capsules by m outh once daily Lactobacillus Combination No.8 (Adult Probiotic) 3 billion cell capsule Active 3000 MMU CELLS PO DAILY September 21, 2018 11:00pm melatonin 3 mg oral tablet (2 sources) Start: 07-29-2024 take 2 tablets by mouth at bedtime Melatonin 3 MG tablet Take 2 tablets by mouth at bedtime. 30 tablet 07/29/2024 Active Start: 07-26-2024 End: 07-29-2024 take 6 mg by mouth once daily at bedtime 6 mg, Oral, DAILY AT BEDTIME, First dose on Thu07/26/24 at 2330, Until Discontinued Misc Natural Products (ADREN AL PO) (10 sources) Misc Natural Pro ducts (ADRENAL PO) Take by mouth. Active Misc Natural Pro ducts (ADRENAL PO) Take by mouth 0 Active Multiple Vitamins-Minerals (MULTIVITAMIN ADULT PO) (1 source) Multiple Vitamin s-Minerals (MULTIVITAMIN ADULT PO) Take by mouth 0 Active Multivitamin preparation (20 sources) Start: 04-30-2016 Multivitamin Active 1 EACH P O DAILY April 30, 2016 1:00am Start: 04-30-2016 Multivitamin A ctive 1 EACH PO DAILY April 30, 2016 12:00am Multivitamin Multivitamin w/ minerals tablet (14 sources) take 1 tablet by aubrey once daily Multivitamin w/ minerals tablet Take 1 tablet by mouth daily. Active take 1 tablet by mouth once carrie y Multivitamin w/ minerals tablet Take 1 tablet by mouth daily. 0 Active pantoprazole 40 mg delayed release oral tablet (7 sources) Proton Pump Inhibitor Start: 07-30-2024 take 1 tablet by mouth once daily Pantoprazole [address] tablet Indications: Continuation of Home Therapy Take 1 tablet by mouth daily. 30 tablet 07/30/2024 Active Start: 07-27-2024 End: 07-29-2024 take 40 mg by mouth once daily 40 mg, Oral, DAILY, Fir st dose on Thu07/27/24 at 0900, Until Discontinued, Swallow whole; do not crush or chew., Indications: Continuation of Home Therapy Start: 10-17-2023 End: 11-21-2023 take 1 tablet by mouth once daily Pantoprazole [address] tablet DR Take 1 tablet by mouth daily. 15 tablet 10/17/2023 11/21/2023 Discontinued (Stop Taking at Discharge) polyethylene glycol [id number] mg powder for oral solution (1 source) Osmotic Laxative Start: 05-31-2023 End: 06-07-2023 take 1 dose by mouth once daily as needed Polyethylene glycol 17 g Pack packet Take 1 packet by mouth daily as needed for up to 7 days. 7 packet 0 05/31/2023 06/07/2023 Active Probiotic Product (PROBIOTIC 10 ULTRA STRENGTH PO) (14 sources) Probiotic Produc t (PROBIOTIC 10 ULTRA STRENGTH PO) Take by mouth. Active Probiotic Produc t (PROBIOTIC 10 ULTRA STRENGTH PO) Take by mouth. 0 Active sennosides, nursing home 8.6 mg oral tablet (10 sources) Start: 09-29-2024 senna 8.6 mg t ablet ; 1 (one) tablet daily for 0 days Quantity: 90 {Tablet} Refills: 1 Ordered: 29-Sep-2024 DARLENE Moy Start: 29-Sep-2024 Start: 07-30-2024 Senna 8.6 MG t ablet 1 tablet by Per NG tube route daily. 30 tablet 07/30/2024 Active Start: 06-01-2023 End: 06-08-2023 take 1 tablet by mouth once daily Senna 8.6 MG tablet Take 1 tablet by mouth daily for 7 days. 7 tablet 0 06/01/2023 06/08/2023 Active Start: 05-30-2023 End: 05-30-2023 take 8.6 mg by mouth once daily 8.6 mg, Oral, DAILY, F irst dose on 05/30/23 at 0900, Until Discontinued sertraline 50 mg oral tablet (18 sources) Serotonin Reuptake Inhibitor Start: 09-29-2024 Zoloft 50 mg tablet ; 1 (one) tablet daily for 0 days Quantity: 90 {Tablet} Refills: 1 Ordered: 29-Sep-2024 DARLENE Moy Start: 29-Sep-2024 Comments: Dose increase 09/29/24 Start: 07-29-2024 take 1 tablet by aubrey th once daily Sertraline 25 MG tablet Take 1 tablet by mouth daily. 60 tablet 2 07/29/2024 Active Zoloft Comments: 10 mg Hospital Comment on above: 10 mg Hospital Dose increase 5 simvastatin 10 mg oral tablet (20 sources) HMG-CoA Reductase Inhibitor Start: 11-01-2024 simvastatin 10 mg tablet ; 1 (one) Tablet with evening meal or at bedtime for 0 days Quantity: 90 {Tablet} Refills: 0 Ordered: 01-Nov-2024 DARLENE Moy Start: 01-Nov-2024 Start: 08-01-2024 simvastatin 10 mg tablet ; 1 (one) Tablet with evening meal or at bedtime for 0 days Quantity: 90 {Tablet} Refills: 0 Ordered: 01-Aug-2024 DARLENE Moy Start: 01-Aug-2024 Start: 02-29-2024 simvastatin 10 mg tablet ; 1 (one) Tablet with evening meal or at bedtime for 0 days Quantity: 90 {Tablet} Refills: 0 Ordered: 29-Feb-2024 DARLENE Moy Start: 29-Feb-2024 Start: 02-01-2024 simvastatin 10 mg tablet ; 1 (one) Tablet with evening meal or at bedtime for 0 days Quantity: 90 {Tablet} Refills: 0 Ordered: 01-Feb-2024 DARLENE Moy Start: 01-Feb-2024 Start: 09-19-2019 simvastatin 10 mg tablet ; 1 (one) Tablet with evening meal or at bedtime for 0 days Quantity: 90 {Tablet} Refills: 0 Ordered: 14-Apr-2023 MD Mac White Start: 14-Apr-2023 ticagrelor 90 mg oral tablet (4 sources) Start: 05-31-2023 End: 08-29-2023 take 1 tablet by mouth every twelve hours ticagrelor 90 MG tablet Take 1 tablet by mouth every 12 hours. 60 tablet 1 07/02/2023 Active Start: 05-30-2023 End: 05-30-2023 take 1 dose by mouth once 180 mg, Oral, ONCE, 1 dose, On Sat 05/30 at 1815 Maintenance doses of aspirin above 100mg reduce the effectiveness of ticagrelor and should be avoided. After any initial dose, use with aspirin 81mg per day. Post-op/Post-Proc Completed/Discontinued Medications Medication Drug Class(es) Dates Sig (Normalized) Sig (Original) acetaminophen 325 mg / oxyCODONE hydrochloride 5 mg oral tablet (6 sources) Opioid Agonist Start: 11-11-2023 End: 11-21-2023 take 1 tablet by mouth every eight hours as needed oxyCODONE-acetamino phen 5-325 MG per tablet Indications: Aneurysm Take 1 tablet by mouth every 8 hours as needed for up to 5 days. 10 tablet 11/11/2023 11/21/2023 Discontinued (Stop Taking at Discharge) Start: 07-06-2016 End: 09-22-2018 take 1 tablet by mouth every four hours as needed Oxycodone-Acetaminophen Discontinued 1 - 2 TABLET PO EVERY 4 HOURS NEEDED July 06, 2016 1:00am September 22, 2018 10:39am amoxicillin 875 mg / clavulanate 125 mg oral tablet (20 sources) Penicillin-class Antibacterial Start: 04-29-2021 End: 05-09-2021 take 1 tablet by mouth twice daily Amoxicillin-Pot Clavulanate 875-125 MG Oral Tablet ; 1 (one) Tablet BID for 10 days Quantity: 20 {Tablet} Refills: 0 Ordered: 29-Apr-2021 DARLENE Moy Start: 29-Apr-2021 End: 09-May-2021 Status: Inactive apixaban 5 mg oral tablet (20 sources) Factor Xa Inhibitor Start: 05-30-2023 End: 11-21-2023 5 mg, Oral, EVERY 12 HOURS, First dose on Thu10/16/23 at 2100, Until Discontinued, Due to the rapid onset of action of apixaban, no overlap is needed with other anticoagulants (e.g. enoxaparin, heparin)., Indications: home therapy Start: 01-23-2022 End: 08-03-2023 take 1 tablet by mouth twice daily Apixaban (Eliquis) 5 mg tablet Active 0 .ROUTE .COMPLEX 180 August 03, 2023 9:09am TAKE 1 TABLET BY MOUTH TWICE A DAY atorvastatin 10 mg oral tablet (2 sources) HMG-CoA Reductase Inhibitor Start: 11-21-2023 End: 11-21-2023 take 5 mg by mouth once daily 5 mg, Oral, DAILY, First dose on 11/21/23 at 0900, Until Discontinued Start: 05-30-2023 End: 05-31-2023 take 10 mg by mouth once daily at bedtime 10 mg, Oral, DAILY AT BEDTIME, First dose on 05/30/23 at 2100, Until Discontinued azithromycin 500 mg oral tablet (20 sources) Macrolide Antimicrobial Start: 09-04-2010 End: 09-07-2010 take 1 tablet by mouth once daily ZITHROMAX TRI-SHAISTA, 500MG (Oral Tablet) ; 1 (one) Tablet daily for 3 days Quantity: 3 {Tablet} Refills: 0 Ordered: 04-Sep-2010 GEM Aguilera Start: 04-Sep-2010 End: 07-Sep-2010 Status: Inactive biotin 5 mg oral capsule (20 sources) Start: 04-30-2016 End: 09-22-2018 take 5 mg by mouth once daily Biotin Discontinued 5 MG PO DAILY April 30, 2016 1:00am September 22, 2018 10:39am Start: 04-22-2016 take 1 tablet by aubrey th once daily BIOTIN 5000 5 MG CAPS One tablet by mouth daily BIOTIN [id number] Peace Chan [employer] BIOTIN PO Take b y mouth 0 Active bisacodyl 10 mg rectal suppository (1 source) Stimulant Laxative Start: 07-29-2024 End: 07-29-2024 take 10 mg rectal route once daily 10 mg, Rectal, DAILY, First dose on Thu07/29/24 at 1000, Until Discontinued brimonidine tartrate 2 mg/ml ophthalmic solution (7 sources) alpha-Adrenergic Agonist Start: 05-30-2023 End: 05-31-2023 1 drop, Both Eyes, 3 TIMES DAILY, First dose on 05/30/23 at 0900, Until Discontinued End: 11-21-2023 take 1 drop(s) into the eye(s) three times daily brimonidine 0.15 % Solution ophthalmic solution 1 drop 3 times daily. Use in affected eye(s). 11/21/2023 Discontinued (Stop Taking at Discharge) calcium acetate 667 mg oral capsule (15 sources) Start: 05-30-2023 End: 07-27-2024 take 667 mg by mouth three times daily at mealtime 667 mg, Oral, 3 TIMES DAILY WITH MEALS, First dose on 05/30/23 at 0800, Until Discontinued Hold if patient is not receiving tube feeding or on a diet. Calcium Gluconate 10 % injection 2 g (1 source) Start: 05-30-2023 End: 05-31-2023 Calcium Gluconate 10 % injection 2 g cefTRIAXone 1000 mg injection (2 sources) Cephalosporin Antibacterial Start: 07-28-2024 End: 07-28-2024 take 1 g intravenously every twenty-four hours 1 g, Intravenous, Administer over 30 Minutes, EVERY 24 HOURS, 1 dose, First dose (after last modification) on Thu07/28/24 at 0000 Start: 07-26-2024 End: 07-27-2024 take 2 g intravenously every twenty-four hours 2 g, Intravenous, Administer over 30 Minutes, EVERY 24 HOURS, 2 doses, First dose (after last modification) on Thu07/27/24 at 0000, Last dose on Thu07/28/24 at 0000 cephalexin 500 mg oral tablet (20 sources) Cephalosporin Antibacterial Start: 08-12-2012 End: 08-22-2012 take 1 tablet by mouth three times daily CEPHALEXIN, 500MG (Oral Tablet) ; 1 Tablet TID for 10 days Quantity: 30 {Tablet} Refills: 0 Ordered: 12-Aug-2012 DARLENE Moy Start: 12-Aug-2012 End: 22-Aug-2012 Status: Inactive cinnamon bark 500 mg oral capsule (20 sources) Start: 10-30-2011 End: 10-21-2013 take 2 tablets by mouth once daily CINNAMON 500 MG CAPS 2 tablets by mouth daily CINNAMON [id number] Francisco Javier Westbrook MD CINNAMON, 500MG (Oral Capsule) ; (500 MG) Status: Inactive clopidogrel 75 mg oral tablet (20 sources) P2Y12 Platelet Inhibitor Start: 11-11-2023 End: 07-29-2024 take 1 tablet by mouth once daily Clopidogrel 75 MG tablet Take 1 tablet by mouth daily. 90 tablet 1 01/05/2024 07/29/2024 Discontinued (Stop Taking at Discharge) dexamethasone 4 mg oral tablet (4 sources) Corticosteroid Start: 10-17-2023 End: 10-17-2023 take 4 mg by mouth every six hours 4 mg, Oral, EVERY 6 HOURS, First dose on 10/17/23 at 1800, Until Discontinued Start: 10-17-2023 End: 11-01-2023 take 1 tablet by mouth twice daily dexAMETHasone 2 MG tablet Take 1 tablet by mouth 2 times daily for 15 days. 30 tablet 10/17/2023 11/01/2023 Active Start: 10-17-2023 End: 10-17-2023 10 mg, Intravenous, ONCE, 1 dose, On 10/17/23 at 1015 docusate sodium 100 mg oral capsule (1 source) Start: 05-30-2023 End: 05-30-2023 take 100 mg by mouth twice daily 100 mg, Oral, 2 TIMES DAILY, First dose on 05/30/23 at 0900, Until Discontinued dorzolamide 20 mg/ml ophthalmic solution (1 source) Carbonic Anhydrase Inhibitor Start: 07-27-2024 End: 07-29-2024 1 drop, Both Eyes, 2 TIMES DAILY, First dose on Thu07/27/24 at 0900, Until Discontinued, If given with other meds, separate by 5 minutes Enoxaparin Sodium (LOVENOX) injection 40 mg (1 source) Start: 07-27-2024 End: 07-29-2024 Enoxaparin Sodium (LOVENOX) injection 40 mg 100 ml eptifibatide 0.75 mg/ml injection (1 source) Platelet Aggregation Inhibitor Start: 05-30-2023 End: 05-31-2023 Eptifibatide in diluent (INTEGRILIN) 75 mg/100 ml premix IV infusion famotidine 20 mg oral tablet (1 source) Histamine-2 Receptor Antagonist Start: 10-17-2023 End: 10-17-2023 take 20 mg by mouth every twelve hours 20 mg, Oral, EVERY 12 HOURS, First dose on Thu10/17/23 at 0945, Until Discontinued flecainide acetate 50 mg oral tablet (20 sources) Antiarrhythmic Start: 07-27-2024 End: 07-29-2024 take 50 mg by mouth every twelve hours 50 mg, Oral, EVERY 12 HOURS, First dose on Thu07/27/24 at 0900, Until Discontinued Start: 11-20-2023 End: 11-21-2023 take 50 mg by mouth twice daily 50 mg, Oral, 2 TIMES D AILY, First dose on Thu11/20/23 at 2100, Until Discontinued Start: 10-16-2023 End: 10-17-2023 take 50 mg by mouth twice daily 50 mg, Oral, 2 TIMES D AILY, First dose on Thu10/16/23 at 1715, Until Discontinued Start: 09-14-2017 End: 04-08-2023 take 50 mg by mouth every twelve hours Flecainide Discontinued 50 MG PO Q12H 180 March 19, 2021 1:35pm January 20, 2022 9:02am Start: 07-06-2016 End: 09-14-2017 take 50 mg by mouth twice daily Flecainide Discontinue d 50 MG PO TWICE A DAY July 06, 2016 1:00am September 14, 2017 4:57pm Start: 05-05-2016 End: 05-31-2023 take 50 mg by mouth twice daily 50 mg, Oral, 2 TIMES D AILY, First dose on Thu05/30/23 at 0900, Until Discontinued Start: 12-11-2011 End: 01-20-2014 take 1 tablet by mouth twice daily FLECAINIDE ACETATE 100 MG TABS One half tablet by mouth twice daily FLECAINIDE ACETATE [id number] Brea Cartwright PA-C Comment on above: Nghia fluticasone propionate 0.05 mg/actuat metered dose nasal spray (20 sources) Corticosteroid Start: 04-14-2014 End: 07-05-2015 take 1 spray(s) nasal route twice daily FLONASE, 50MCG/ACT (Nasal Suspension) ; 1 (one) spray in each nostril BID for 0 days Quantity: 1 {Bottle} Refills: 1 Ordered: 14-Apr-2014 GEM Sheffield Start: 14-Apr-2014 End: 05-Jul-2015 Status: Discontinued Comments: This order discontinued per [facility]. Flonase 50 MCG/A CT Nasal Suspension ; prn (50 MCG/ACT) Status: Inactive Comment on above: This order discontin ued per [facility]. Gadopiclenol SOLN 1-25 mL (1 source) Start: End: 1-25 mL, Intravenous, ONCE, 1 dose, On Thu10/16/23 at 2200 hydrALAZINE (APRESOLINE) injection 10 mg (2 sources) Start: End: take 10 mg intravenously every hour as needed hydrALAZINE (APRESOLINE) injection 10 mg Start: 05-30-2023 End: 05-31-2023 take 10 mg intravenously every hour as needed hydrALAZINE (APRESOLINE) injection 10 mg HYDROmorphone (DILAUDID) injection 0.5 mg (1 source) Start: 05-30-2023 End: 05-31-2023 take 0.5 mg intravenously every three hours as needed HYDROmorphone (DILAUDID) injection 0.5 mg iohexol (OMNIPAQUE) 350 MG/ML injection 1-171 mL (4 sources) Start: 07-21-2024 End: 07-21-2024 1-171 mL, Intravenous, ONCE, 1 dose, On Emily 07/21/24 at 1000, Extravasation Risk, CT Procedure Start: 03-17-2024 End: 03-17-2024 1-171 mL, Intravenous, ONCE, 1 dose, On Thu03/17/24 at 0930, Extravasation Risk, CT Procedure Start: 01-28-2024 End: 01-28-2024 1-171 mL, Intravenous, ONCE, 1 dose, On Thu01/28/24 at 1330, Extravasation Risk, CT Procedure Start: 10-16-2023 End: 10-16-2023 1-171 mL, Intravenous, ONCE, 1 dose, On Thu10/16/23 at 1845, Extravasation Risk, CT Procedure Labetalol (NORMODYNE) injection 10 mg (2 sources) Start: 07-26-2024 End: 07-29-2024 take 10 mg intravenously every hour as needed Labetalol (NORMODYNE) injection 10 mg Start: 05-30-2023 End: 05-31-2023 take 10 mg intravenously every hour as needed Labetalol (NORMODYNE) injection 10 mg latanoprost 0.05 mg/ml ophthalmic solution (20 sources) Prostaglandin Analog Start: 07-27-2024 End: 07-29-2024 1 drop, Both Eyes, DAILY AT BEDTIME, First dose on Thu07/27/24 at 0000, Until Discontinued, Remove contact lenses Start: 10-16-2023 End: 10-17-2023 1 drop, Both Eyes, DAILY AT BEDTIME, First dose on Thu10/16/23 at 2100, Until Discontinued, Remove contact lenses Start: 05-30-2023 End: 05-31-2023 1 drop, Both Eyes, DAILY AT BEDTIME, First dose on Thu05/30/23 at 2100, Until Discontinued Remove contact lenses Start: 09-19-2019 Latanoprost Ac tive 1 DRP OPHTHALMIC DAILY September 19, 2019 12:00am take 1 drop(s) into the eye(s) at bedtime Latanoprost 0.005 % Solution ophthalmic solution 1 drop At bedtime. Active latanoprost 50 ml magnesium sulfate 80 mg/ml injection (1 source) Start: 05-30-2023 End: 05-31-2023 Magnesium sulfate 4 g in sterile water 50 ml premix IVPB 24 hr metoprolol succinate 25 mg extended release oral tablet (20 sources) beta-Adrenergic Joss Start: 10-17-2023 End: 07-29-2024 25 mg, Oral, DAILY, First dose on Thu07/27/24 at 0900, Until Discontinued, Slow release product. Do not crush. Extended release can be cut in half. *Hold for HR Start: 07-09-2023 End: 10-09-2023 take 25 mg by mouth once daily Metoprolol Succinate Ac tive 25 MG PO DAILY October 09, 2023 12:00am Start: 09-19-2019 End: 07-09-2023 take 1 tablet by mouth once daily Metoprolol Succinate (Toprol Xl) 50 mg tablet extended release 24 hr Discontinued 50 MG PO DAILY May 19, 2022 6:53pm July 09, 2023 9:06am Start: 09-30-2012 End: 09-19-2019 take 25 mg by mouth twice daily Metoprolol Tartrate Di scontinued 25 MG PO TWICE A DAY 180 May 09, 2019 5:30pm September 19, 2019 2:12pm Start: 09-30-2012 take 2 tablets by mo [facility] twice daily METOPROLOL TARTRATE 25 MG TABS two tablets by mouth twice daily METOPROLOL TARTRATE [id number] Peace Chan [employer] Start: 11-22-2010 take 1 tablet by aubrey th twice daily METOPROLOL TARTRATE 50 MG TABS One half tablet by mouth twice daily METOPROLOL TARTRATE [id number] Francisco Javier Westbrook MD metoprolol succi swapna ER 50 mg tablet,extended release 24 hr ; 0.5 tab daily (50 mg) take 1 tablet by aubrey th once daily Metoprolol Tartrate 50 MG Oral Tablet ; 1 daily (50 MG) Status: Inactive take 0.5 tablet by m outh once daily Metoprolol succinate 50 MG tablet XL Take 0.5 tablets by mouth daily. Active [facility] [place] [employer] (1 source) Start: 10-20-2014 take 1 tablet by mouth once daily ADRENAL 200 MG CAPS One tablet by mouth daily [facility] [employer] [id number] Jensen Agrawal MD [facility] [place] [employer] (3 sources) Start: 10-20-2014 take 1 tablet by mouth once daily ADRENAL 200 MG CAPS One tablet by mouth daily [facility] [place] [employer] [id number] Jensen Agrawal MD MULTIPLE VITAMIN (1 source) Start: 11-22-2010 take 1 tablet by mouth once daily MULTIVITAMINS TABS One tablet by mouth daily MULTIPLE VITAMIN [id number] Elsa Vallejo MULTIPLE VITAMIN (3 sources) Start: 11-22-2010 take 1 tablet by mouth once daily MULTIVITAMINS TABS One tablet by mouth daily MULTIPLE VITAMIN [id number] Elsa Vallejo Multivitamin w/ minerals (THERAPEUTIC-M) tablet 1 tablet (1 source) Start: 05-30-2023 End: 05-31-2023 take 1 tablet by mouth once daily 1 tablet, Oral, DAILY, First dose on 05/30/23 at 0900, Until Discontinued mupirocin 0.02 mg/mg topical ointment (20 sources) RNA Synthetase Inhibitor Antibacterial Start: 11-18-2018 End: 01-23-2023 mupirocin 2 % topical ointment ; 1 (one) Application Application to affected area TID prn for 0 days Quantity: 15 {Gram} Refills: 0 Ordered: 23-Jan-2023 DARLENE Moy Start: 18-Nov-2018 End: 23-Jan-2023 Status: Inactive nitroglycerin 0.4 mg sublingual tablet (7 sources) Nitrate Vasodilator Start: 04-22-2016 End: 09-22-2018 Nitroglycerin Discontinued 0.4 MG SL NEEDED April 30, 2016 1:00am September 22, 2018 10:39am 2 ml ondansetron 2 mg/ml injection (5 sources) Serotonin-3 Receptor Antagonist Start: 10-29-2023 End: 10-29-2023 4 mg, Intravenous, EVERY 4 HOURS NEEDED, Starting on Emily 10/29/23 at 1650, Until Emily 10/29/23 at 2153, Nausea / Vomiting, Post-op/Post-Proc Start: 05-30-2023 End: 05-31-2023 take 4 mg intravenously every four hours as needed Ondansetron 4mg/2ml (ZOFRAN) injection 4 mg Start: 07-06-2016 End: 09-22-2018 take 4 mg by mouth every six hours as needed Ondansetron Discontinued 4 MG PO EVERY 6 HOURS NEEDED July 06, 2016 4:35pm September 22, 2018 10:39am oxyCODONE (1 source) Opioid Agonist Start: 05-30-2023 End: 05-31-2023 take 1 tablet by mouth every four hours as needed oxyCODONE (ROXICODONE) tablet 5 mg Polyethylene glycol (MIRALAX) packet 17 g (2 sources) Start: 07-26-2024 End: 07-29-2024 Polyethylene glycol (MIRALAX) packet 17 g Start: 05-30-2023 End: 05-31-2023 Polyethylene glycol (MIRALAX ) packet 17 g potassium chloride 10 meq extended release oral tablet (20 sources) Start: 11-22-2010 End: 10-21-2013 take 1 tablet by mouth once daily POTASSIUM CHLORIDE ER 10 MEQ CR-TABS One tablet by mouth daily POTASSIUM CHLORIDE [id number] Jensen Agrawal MD POTASSIUM CHLORI DE CR, 10MEQ (Oral Capsule Extended Release) ; (10 MEQ) Status: Inactive Comments: (per dr. kinney) take 1 tablet by mouth once carrie y POTASSIUM CHLORIDE YESSI CR, 20MEQ (Oral Tablet Extended Release) ; 1 daily (20 MEQ) Status: Inactive Comment on above: (per dr. kinney) 1000 ml potassium chloride 0.02 meq/ml / sodium chloride 9 mg/ml injection (3 sources) Start: 05-30-2023 End: 05-31-2023 sodium chloride 0.9% 1,000 ml with potassium chloride 20 mEq premix IV solution Start: 05-30-2023 End: 05-30-2023 Intravenous, at 75 mL/hr, CO NTINUOUS, Starting on 05/30/23 at 0200, Until 05/30/23 at 1736 Start: 05-30-2023 End: 05-30-2023 Sodium chloride 0.9% w/potas sium cl 20-0.9 MEQ/L-% premix IV solution Potassium chloride 20 mEq in sterile water 50 ml premix IVPB (1 source) Start: 05-30-2023 End: 05-31-2023 Potassium chloride 20 mEq in sterile water 50 ml premix IVPB pravastatin sodium 20 mg oral tablet (13 sources) HMG-CoA Reductase Inhibitor Start: 10-17-2023 End: 10-17-2023 Start: 05-13-2012 End: 10-21-2013 take 1 tablet by mouth at bedtime PRAVASTATIN SODIUM 10 MG TABS One tablet by mouth at bedtime. PRAVASTATIN SODIUM [id number] Jensen Agrawal MD progesterone 50 mg/ml injectable solution (20 sources) Progesterone Start: 09-30-2012 End: 10-25-2015 PROGESTERONE 50 MG/ML OIL progesterone testosterone cream as directed PROGESTERONE [id number] Jensen Agrawal MD Start: 11-22-2010 take 1 tablet by aubrey th at bedtime PROMETRIUM 100 MG CAPS One tablet by mouth at bedtime. PROGESTERONE MICRONIZED [id number] Elsa Vallejo Comment on above: (Dr. Perez) Senna Leaves (2 sources) Start: 07-27-2024 End: 07-29-2024 Senna (SENOKOT) tablet 8.6 m g Start: 05-31-2023 End: 05-31-2023 Senna (SENOKOT) tablet 8.6 m g 20 ml sodium chloride 9 mg/m l injection (12 sources) Start: 07-21-2024 End: 07-21-2024 1-100 mL, Intravenous, ONCE NEEDED, 1 dose, Starting on Thu07/21/24 at 0948, Until Thu07/21/24 at 0949, Flush, CT Procedure Start: 03-17-2024 End: 03-17-2024 1-100 mL, Intravenous, ONCE NEEDED, 1 dose, Starting on Thu03/17/24 at 0915, Until Thu03/17/24 at 0915, Flush, CT Procedure Start: 01-28-2024 End: 01-28-2024 1-100 mL, Intravenous, ONCE NEEDED, 1 dose, Starting on Thu01/28/24 at 1318, Until Thu01/28/24 at 1318, Flush, CT Procedure Start: 11-20-2023 End: 11-21-2023 Intravenous, at 50 mL/hr, CO NTINUOUS, Starting on Thu11/20/23 at 2245, Until Thu11/21/23 at 1349 Start: 11-11-2023 Sodium chlorid e 0.9% IV solution Start: 10-20-2023 End: 10-29-2023 Intravenous, at 50 mL/hr, CO NTINUOUS, Starting on Thu10/29/23 at 0915, Until Emily 10/29/23 at 2153, Post-op/Post-Proc Start: 05-30-2023 End: 05-31-2023 Sodium chloride 0.9% IV solu tion Start: 05-30-2023 End: 05-31-2023 Sodium chloride 0.9% IV solu tion 250 mL sodium phosphate 30 mmol in Sodium chloride 0.9%, with overfill 285 mL (total volume) IVPB (1 source) Start: 05-30-2023 End: 05-31-2023 sodium phosphate 30 mmol in Sodium chloride 0.9%, with overfill 285 mL (total volume) IVPB 12 hr timolol 5 mg/ml ophthalmic solution (20 sources) beta-Adrenergic Joss Start: 07-27-2024 End: 07-29-2024 1 drop, Both Eyes, 2 TIMES DAILY, First dose on Thu07/27/24 at 0900, Until Discontinued Start: 10-16-2023 End: 10-17-2023 1 drop, Both Eyes, 2 TIMES D RADHAY, First dose on Thu10/16/23 at 2100, Until Discontinued Start: 09-30-2021 End: 05-29-2023 Timolol Discontinued 1 DRP O PHTHALMIC TWICE A DAY September 30, 2021 12:00am May 29, 2023 8:31pm Start: 09-30-2021 End: 05-29-2023 Timolol Discontinued 1 DRP O PHTHALMIC TWICE A DAY September 29, 2021 11:00pm May 29, 2023 7:31pm timoloL Status: Inactive timoloL travoprost 0.04 mg/ml ophthalmic solution (20 sources) Prostaglandin Analog Start: 09-14-2017 End: 09-19-2019 take 0.004 drop(s) into the eye(s) once daily in the evening Travoprost (Travatan Z) 0.004 % drops Discontinued 1 DRP OPHTHALMIC EVERY EVENING September 14, 2017 12:00am September 19, 2019 1:19pm Start: 11-10-2016 TRAVATAN Z 0.0 04 % SOLN Take as directed TRAVOPROST [id number] Katty Llanos RN Start: 11-10-2016 TRAVATAN Z 0.0 04 % SOLN Take as directed TRAVOPROST [id number] Katty Llanos RN Travatan 0.004 % Ophthalmic Solution ; (0.004 %) Status: Inactive 24 hr venlafaxine 37.5 mg extended release oral capsule (20 sources) Serotonin and Norepinephrine Reuptake Inhibitor Start: 08-15-2024 End: 08-19-2024 venlafaxine ER 37.5 mg capsule,extended release 24 hr ; 1 (one) capsule daily for 0 days Quantity: 30 {Capsule} Refills: 1 Ordered: 19-Aug-2024 GEM El Start: 15-Aug-2024 End: 19-Aug-2024 Status: Discontinued Start: 07-22-2024 End: 07-29-2024 venlafaxine ER 37.5 mg capsu le,extended release 24 hr ; 1 (one) capsule daily for 0 days Quantity: 30 {Capsule} Refills: 1 Ordered: 22-Jul-2024 DARLENE Moy Start: 22-Jul-2024 Problems Active Problems Problem Classification Problem Date Documented Da te Episodic/Chronic Abdominal pain (20 sources) Acute abdominal pain; Translations: [Right upper quadrant pain] 11-18-2018 Episodic Aortic; peripheral; and visceral artery aneurysms (19 sources) Aneurysm; Translations: [Aneurysm of unspecified site] Onset: 05-30-2023 05-30-2023 Chronic Blindness and vision defects (20 sources) Bilateral visual impairment; Translations: [Unqualified visual loss, both eyes] 07-22-2024 Chronic Cardiac dysrhythmias (20 sources) Paroxysmal atrial fibrillation; Translations: [Atrial fibrillation] Onset: 11-22-2010 10-25-2015 Chronic Diabetes mellitus without complication (20 sources) Hyperglycemia; Translations: [Hyperglycemia, unspecified] 01-23-2023 Episodic Disorders of lipid metabolism (20 sources) Hyperlipidemia; Translations: [Hyperlipidemia, unspecified] Onset: 11-22-2010 11-22-2010 Chronic Essential hypertension (20 sources) Hypertensive disorder; Translations: [Benign essential hypertension] Onset: 11-22-2010 11-22-2010 Chronic Fluid and electrolyte disorders (20 sources) Hypokalemia; Translations: [Hypokalemia] 11-18-2018 Episodic Genitourinary symptoms and ill-defined conditions (20 sources) Incontinence; Translations: [Unspecified urinary incontinence] 08-19-2024 Chronic Genitourinary symptoms and ill-defined conditions (20 sources) Urinary symptoms ; Translations: [Unspecified symptoms and signs involving the genitourinary system] 08-16-2024 Episodic Headache; including migraine (20 sources) Headache; Translations: [Headache] 01-23-2023 Episodic Headache; including migraine (2 sources) Headache; including migraine; Translations: [Headache, unspecified] Onset: 10-16-2023 Immunizations and screening for infectious disease (20 sources) Needs influenza immunization; Translations: [Encounter for immunization] 11-18-2018 Episodic Inflammation; infection of eye (except that caused by tuberculosis or sexually transmitteddisease) (14 sources) Disorder of optic nerve; 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] Onset: 10-16-2023 10-16-2023 Chronic Miscellaneous mental health disorders (1 source) Confusional state 07-21-2024 Chronic Mood disorders (20 sources) Depressive disorder; Translations: [Depressive disorder, not elsewhere classified] 07-22-2024 Chronic Open wounds of head; neck; and trunk (20 sources) Laceration - injury; Translations: [Open wound(s) (multiple) of unspecified site(s), without mention of complication] 11-18-2018 Episodic Osteoarthritis (20 sources) Arthritis; Translations: [Unspecified osteoarthritis, unspecified site] 01-23-2023 Chronic Other aftercare (2 sources) Patient encounter status; Translations: [Encounter for follow-up examination after completed treatment for conditions other than malignant neoplasm] 11-17-2023 Episodic Other and ill-defined cerebrovascular disease (3 sources) Intracranial aneurysm; Translations: [Cerebral aneurysm, nonruptured] 10-09-2023 Chronic Other and ill-defined cerebrovascular disease (20 sources) Cerebral arterial aneurysm; Translations: [Cerebral aneurysm, nonruptured] Onset: 11-20-2023 10-17-2023 Chronic Other and ill-defined cerebrovascular disease (2 sources) Cerebral aneurysm, nonruptured; Translations: [Cerebral aneurysm, nonruptured] Onset: 11-20-2023 Chronic Other bone disease and musculoskeletal deformities (20 sources) Osteopenia; Translations: [Other specified disorders of bone density and structure, unspecified site] 01-23-2023 Episodic Other gastrointestinal disorders (14 sources) Constipation; Translations: [Constipation, unspecified] 09-29-2024 Episodic Other nervous system disorders (20 sources) Bilateral carpal tunnel syndrome; Translations: [Carpal tunnel syndrome, bilateral upper limbs] 11-18-2018 Chronic Other nutritional; endocrine; and metabolic disorders (4 sources) Body mass index (BMI) 36.0-36.9, adult; Translations: [Body mass index (BMI) 36.0-36.9, adult] Onset: 10-21-2013 10-21-2013 Chronic Other nutritional; endocrine; and metabolic disorders (20 sources) Hyperbilirubinemia; Translations: [Other disorders of bilirubin metabolism] 01-23-2023 Chronic Other nutritional; endocrine; and metabolic disorders (20 sources) Obesity; Translations: [Obesity, unspecified] 01-23-2023 Chronic Other nutritional; endocrine; and metabolic disorders (14 sources) Obese class I; Translations: [Obesity, unspecified] Onset: 07-02-2023 07-02-2023 Chronic Other nutritional; endocrine; and metabolic disorders (2 sources) Obesity, unspecified; Translations: [Obesity, unspecified] Onset: 07-02-2023 Chronic Other screening for suspected conditions (not mental disorders or infectious disease) (20 sources) Nonspecific (abnormal) findings on radiological and other examination of other intrathoracic organs; Translations: [Patient encounter status] Onset: 06-30-2024 11-18-2018 Episodic Other skin disorders (20 sources) Skin irritation ; Translations: [Other skin changes] 11-11-2019 Episodic Other skin disorders (20 sources) Skin lesion; Translations: [Disorder of the skin and subcutaneous tissue, unspecified] 01-23-2023 Episodic Other upper respiratory infections (20 sources) Sinusitis; Translations: [Chronic sinusitis, unspecified] 04-29-2021 Chronic Other upper respiratory infections (20 sources) Acute sinusitis; Translations: [Acute sinusitis, unspecified] 11-18-2018 Episodic Personality disorders (2 sources) Change in personality; Translations: [Other specified disorders of adult personality and behavior] 07-21-2024 Chronic Residual codes; unclassified (20 sources) Postmenopausal state; Translations: [Asymptomatic menopausal state] 06-30-2024 Episodic Residual codes; unclassified (2 sources) Amnesia; Translations: [Other amnesia] 07-21-2024 Episodic Residual codes; unclassified (1 source) Confusional state; Translations: [Disorientation, unspecified] 07-21-2024 Episodic Residual codes; unclassified (20 sources) Difficulty sleeping ; Translations: [Sleep disorder, unspecified] 07-22-2024 Episodic Skin and subcutaneous tissue infections (20 sources) Unspecified local infection of skin and subcutaneous tissue 11-18-2018 Episodic Syncope (7 sources) Syncope; Translations: [Syncope and collapse] Onset: 07-26-2024 07-29-2024 Episodic Thyroid disorders (20 sources) Hypothyroidism; Translations: [Hypothyroidism, unspecified] 01-23-2023 Chronic Unclassified (6 sources) Long-term drug therapy; Translations: [Other supervisor intermediates (current) drug therapy] Onset: 04-19-2013 03-11-2017 Unclassified (20 sources) Number of Children 01-23-2023 Comment on above: 4. Unclassified (20 sources) Number of Pregnancies 01-23-2023 Comment on above: 4. Unclassified (20 sources) Vaginal deliveries 01-23-2023 Comment on above: 4. Unclassified (20 sources) Well adult female - The patient feels well with no complaints, has good energy level and is sleeping well. The first day of the last menstrual period was : (atleast 10 years ago). The patient has a balanced diet and takes supplemental vitamins. The patient does not exercise. The patient sleeps 7 hours per night. Note for Well adult female: Reveiwed by Mily Corona. 12-01-2019 Unclassified (20 sources) [ADDITIONAL REASON] Follow up for multiple chronic conditions - The patient is here for follow-up of a-fib, arthritis, hyperlipidemia, hypertension, hypothyroidism, obesity and other condition(s) (hyperglycemia.). The patient always takes the prescribed medications. Side effects noted (is wondering if the calcium is upsetting her belly.). The patient has an active lifestyle but no regular exercise program. The patient's out of office blood pressure checks occur rarely and dietary compliance is fairly good usually adhering to recommendations. The patient states that breathing effort is stable, there is no recent angina or dyspnea, there are no vision changes or weakness (last eye appointment was a few months ago- states goes every 6 moinths.), pain is generally stable (none), sleep patterns have improved and headaches are rarely noted. Note for Multiple chronic conditions follow-up: Last office visit 11/2018. 12-01-2019 Unclassified (20 sources) Well adult female - The patient feels well with no complaints, has good energy level and is sleeping well. The first day of the last menstrual period was : (atleast 10 years ago). The patient has a balanced diet and takes supplemental vitamins. The patient does not exercise. The patient sleeps 7 hours per night. 11-19-2018 Unclassified (20 sources) [ADDITIONAL REASON] Follow up for multiple chronic conditions - The patient is here for follow-up of a-fib, arthritis, hyperlipidemia, hypertension, hypothyroidism, obesity and other condition(s) (hyperglycemia.). The patient always takes the prescribed medications. Side effects noted (is wondering if the calcium is upsetting her belly.). The patient has an active lifestyle but no regular exercise program. The patient's out of office blood pressure checks occur rarely and dietary compliance is fairly good usually adhering to recommendations. The patient states that breathing effort is stable, there is no recent angina or dyspnea, there are no vision changes or weakness (last eye appointment was a few months ago- states goes every 6 moinths.), pain is generally stable (none), sleep patterns have improved and headaches are rarely noted. Note for Multiple chronic conditions follow-up: Last office visit 11/16/2017. 11-19-2018 Unclassified (20 sources) [ADDITIONAL REASON] Transition into care - The patient is transitioning into care from another physician (cardio 09/22/18.). 11-19-2018 Unclassified (17 sources) Follow up for multiple chronic conditions - The patient is here for follow-up of a-fib, arthritis, hyperlipidemia, hypertension, hypothyroidism, obesity and other condition(s) (hyperglycemia.). The patient always takes the prescribed medications. Side effects noted (is wondering if the calcium is upsetting her belly.). The patient has an active lifestyle but no regular exercise program. The patient's out of office blood pressure checks occur rarely and dietary compliance is fairly good usually adhering to recommendations. The patient states that breathing effort is stable, there is no recent angina or dyspnea, there are no vision changes or weakness (last eye appointment was a few months ago- states goes every 6 moinths.), pain is generally stable (none), sleep patterns have improved and headaches are rarely noted. Note for Multiple chronic conditions follow-up: Last office visit 11/2018. 12-01-2019 Unclassified (17 sources) [ADDITIONAL REASON] Well adult female - The patient feels well with no complaints, has good energy level and is sleeping well. The first day of the last menstrual period was : (atleast 10 years ago). The patient has a balanced diet and takes supplemental vitamins. The patient does not exercise. The patient sleeps 7 hours per night. Note for Well adult female: Reveiwed by Mily Corona. 12-01-2019 Unclassified (11 sources) Follow up for multiple chronic conditions - The patient is here for follow-up of a-fib, arthritis, hyperlipidemia, hypertension, hypothyroidism, obesity and other condition(s) (hyperglycemia.). The patient always takes the prescribed medications. Side effects noted (is wondering if the calcium is upsetting her belly.). The patient has an active lifestyle but no regular exercise program. The patient's out of office blood pressure checks occur rarely and dietary compliance is fairly good usually adhering to recommendations. The patient states that breathing effort is stable, there is no recent angina or dyspnea, there are no vision changes or weakness (last eye appointment was a few months ago- states goes every 6 moinths.), pain is generally stable (none), sleep patterns have improved and headaches are rarely noted. Note for Multiple chronic conditions follow-up: Last office visit 11/16/2017. 11-19-2018 Unclassified (20 sources) [ADDITIONAL REASON] Well adult female - The patient feels well with no complaints, has good energy level and is sleeping well. The first day of the last menstrual period was : (atleast 10 years ago). The patient has a balanced diet and takes supplemental vitamins. The patient does not exercise. The patient sleeps 7 hours per night. 11-19-2018 Unclassified (11 sources) Transition into care - The patient is transitioning into care from another physician (cardio 09/22/18.). 11-19-2018 Urinary tract infections (1 source) Urinary tract infection, site not specified; Translations: [Urinary tract infection, site not specified] Onset: 07-26-2024 Episodic Past or Other Problems Problem Classification Problem Date Documented Date Episodic/Chronic Blindness and vision defects (5 sources) Eye / vision finding; Translations: [Unspecified visual disturbance] Onset: 4 10-09-2023 Episodic Mood disorders (1 source) Mood disorders 09-29-2024 Nonspecific chest pain (4 sources) Chest pain; Translations: [Other chest pain] Onset: 6 04-22-2016 Episodic Other aftercare (1 source) Long-term (current) use of other medications; Translations: [Long-term (current) use of other medications] Onset: 3 04-19-2013 Episodic Other aftercare (2 sources) Encounter for follow-up examination after completed treatment for conditions other than malignant neoplasm; Translations: [Encounter for follow-up examination after completed treatment for conditions other than malignant neoplasm] Onset: 4 Episodic Septicemia (except in labor) (2 sources) Septic arterial embolism; Translations: [Septic arterial embolism] Onset: 4 Episodic Unclassified (4 sources) FH: Hypertension; Translations: [Family history of ischemic heart disease and other diseases of the circulatory system] 07-10-2014 Episodic Unclassified (20 sources) Well adult female - The patient feels well with minor complaints (wants to discuss migraines), has good energy level and is sleeping well (sometimes not). The patient has a balanced diet and takes supplemental vitamins. The patient does not exercise. The patient sleeps 7 hours per night. Note for Well adult female: Has appt with cardio in February - asymptomatic.In August saw dentist and eye doctor (good pressure but mild glaucoma/cataracts).Had episode of left eye being wavy on Thursday night while watching tv --- lasts 10-15 minutes followed by a mild headache; had a headache most of that day; had been under more stress and was tired; no loss of vision.Has been having an increase in frontal headaches - at least once a week; has one now even; tylenol helps and usually takes it away. 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 Does admits to quite a bit of tension in neck/shoulders and in the evening does a lot of puzzles where is looking down quite a bit.Does have quite a bit of nasal congestion/rhinitis in the mornings. 01-23-2023 Unclassified (20 sources) Well adult female - The patient feels well with no complaints, has good energy level and is sleeping well. The patient has a balanced diet and takes supplemental vitamins. The patient does not exercise. The patient sleeps 7 hours per night. Note for Well adult female: Eye doctor has noted vision changes and has recommended sleep study. Pt has never had done. 12-30-2021 Unclassified (20 sources) Cold Symptoms - Symptoms include nasal congestion, runny nose, purulent discharge, ear pain (itchy), scratchy throat, dry cough, fever and headache. The onset was gradual 3 week(s) ago. The symptoms occur constantly. The patient describes this as moderate in severity and unchanged. Current treatment includes acetaminophen. The patient has not been exposed to an individual with similar symptoms. Medical history includes seasonal allergies. Note for Upper respiratory infection: Hasn't been using flonase but has been doing sinus rinses. 04-29-2021 Unclassified (20 sources) Well adult female - The patient feels well with no complaints, has good energy level and is sleeping well. The patient has a balanced diet and takes supplemental vitamins. The patient exercises 3 - 4 times per week. The patient sleeps 7 hours per night. Note for Well adult female: No concerns today. 12-24-2020 Unclassified (20 sources) Well adult female - The patient feels well with no complaints, has good energy level and is sleeping well. The patient is not using any method of contraception at this time. The patient has a balanced diet and takes supplemental vitamins. The patient does not exercise. The patient sleeps 7 hours per night. Note for Well adult female: Last eye appointment 08/2017.Weight is up 9 pounds. 11-16-2017 Unclassified (20 sources) [ADDITIONAL REASON] Transition into care - The patient is transitioning into care from another physician (09/17/2017 [facility]) and a summary of care was reviewed. 11-16-2017 Unclassified (20 sources) Well adult female - The patient has a balanced diet and takes supplemental vitamins. The patient does not exercise. The patient sleeps 7 hours per night. Note for Well adult female: BP the other day was 124/70.Gallbladder removed in Jul - no further symptoms (found to have cholecystitis, no stones in duct).MI[facility]ER exams are UTD.Weight is down [address] Agrawal in August - next appt is in Feb. 11-14-2016 Unclassified (20 sources) Follow up consultation - The patient is here to follow-up after Emergency Room/Urgent Care ([facility]) on : (07/06/16). Current symptoms include abdominal pain. Note for Consultation follow-up: Patient is still having right sided abdominal pain that is radiating into her middle abdomen. She is experiencing an achy pain that occurs constantly unless she is lying down. She was given Zofran 4mg, 1 tablet Q6hrs PRN and Percocet 5-325mg 1-2 tablets Q4hrs PRN in the emergency room which is not helping. Occasional acid reflux. Symptoms initially started on Thursday. She had eaten soup of lunch on Thursday and then at 1am she started vomiting. No vomiting since then. No BM since Thursday. Went to Urgent Care and was then sent to ER. Labs and RUQ US done - WBC count elevated and gallstones noted. She was discharged with suspected viral illness.No cold symptoms. No exposure to ill contacts. No urinary symptoms. 07-09-2016 Unclassified (20 sources) Well adult female - The patient feels well with no complaints, has good energy level and is sleeping well. The first day of the last menstrual period was : (10yrs ago). The patient has a balanced diet and takes supplemental vitamins. The patient does not exercise. The patient sleeps 8 hours per night. 07-05-2015 Unclassified (20 sources) [ADDITIONAL REASON] Transition into care - The patient is transitioning into care from another physician and a summary of care was reviewed . 07-05-2015 Unclassified (20 sources) Cold Symptoms - Symptoms include nasal congestion, scratchy throat, headache and facial pain (points to ethmoid sinuses for where she has the majority of her pain), but do not include ear pain, dry cough or productive cough. The onset was gradual year(s) ago (States it has been worse recently but has had symptoms daily since last year.). The symptoms occur constantly. The patient describes this as moderate in severity and unchanged. The patient is not currently being treated for this problem. The patient has not been exposed to an individual with similar symptoms. Patient denies history of seasonal allergies, recurrent sinusitis, recurrent strep pharyngitis, asthma, tonsillectomy or recurrent ear infections. 04-14-2014 Unclassified (20 sources) Cold Symptoms - Symptoms include sneezing, nasal congestion, runny nose (and now has sores in her nose. Using peroxide/saline solution for this but they just keep getting worse and are persistent.), scratchy throat, dry cough (atnight when she lays down.) and headache, but do not include wheezing, fever or facial pain. The onset was gradual 5 month(s) ago (has been fighting on/off since March.). The patient describes this as moderate in severity and worsening. Current treatment includes non-prescription cold medication. Risk factors do not include smoking. Medical history includes recurrent sinusitis. Note for Upper respiratory infection: reviewed by [facility] 09-02-2013 Unclassified (20 sources) Finger pain - The pain is located in the of the left thumb. This occurred 6 week(s) ago at home (cut the tip of her finger with a kitchen knife). Symptoms include pain and discoloration. The patient describes the pain as throbbing. The patient describes the pain as mild. The patient is not currently being treated for this problem. Note for Finger pain: There has been a pussy drainage from the area. Unknown when last tetanus shot was. Has used bacitracin, neosporin, and hydrogen peroxide. 08-12-2012 Unclassified (20 sources) [facility] Routine Follow up - The patient is here for follow-up of hypertension, hyperlipidemia, obesity and other condition(s) (hypothyroidism and hypokalemia). The patient always takes the prescribed medications. No side effects noted. The patient engages in regular program 3-5 time(s) per week. The patient's out of office blood pressure checks occur occasionally and dietary compliance is good with close adherance to recommendations. The patient states that breathing effort is stable, there is no recent angina or dyspnea, there are no vision changes or weakness, weight is unchanged, mood is unchanged and they do not have headaches. The patient does not check home blood sugars. Note for [facility] Routine Follow up: Last TSH, T4, Potassium was 09/12/10. Lipid was done 07/[address] Guardado, last CMP was 01/[address] Guardado as well. 09-26-2011 Unclassified (20 sources) Follow up diagnostic procedure results - Diagnostic tests performed on : (Mar 2011) include CT scan (chest at [facility]). Follow up visit with no current symptoms. There is a family history of breast cancer (grandmother) and other (mother lung cancer; sister schitzophrenic). Past medical history includes hypertension. 03-21-2011 Unclassified (20 sources) Follow up diagnostic procedure results - Diagnostic tests performed include other. Note for Follow up diagnostic procedure results: Here to discuss stress ecchocardiogram and labs. Pt here to discuss results. Has no other major concerns other than going over tests. 09-16-2010 Unclassified (20 sources) Follow up diagnostic procedure results - Diagnostic tests performed on : (08/29/10) include CT scan and other (echocardiogram). Follow up visit with no current symptoms. 09-05-2010 Unclassified (17 sources) Transition into care - The patient is transitioning into care from another physician (09/17/2017 [facility]ARDIO) and a summary of care was reviewed. 11-16-2017 Unclassified (17 sources) [ADDITIONAL REASON] Well adult female - The patient feels well with no complaints, has good energy level and is sleeping well. The patient is not using any method of contraception at this time. The patient has a balanced diet and takes supplemental vitamins. The patient does not exercise. The patient sleeps 7 hours per night. Note for Well adult female: Last eye appointment 08/2017.Weight is up 9 pounds. 11-16-2017 Unclassified (19 sources) Transition into care - The patient is transitioning into care from another physician and a summary of care was reviewed . 07-05-2015 Unclassified (19 sources) [ADDITIONAL REASON] Well adult female - The patient feels well with no complaints, has good energy level and is sleeping well. The first day of the last menstrual period was : (10yrs ago). The patient has a balanced diet and takes supplemental vitamins. The patient does not exercise. The patient sleeps 8 hours per night. 07-05-2015 Unclassified (1 source) Follow up from hospital stay - Name of Hospital: [facility]. Date of Admission: 11/20/23. Date of Discharge: 11/21/23. The patient was hospitalized for Cerebral aneurysm, nonruptured. New medications include acetaminophen and Medications discontinued include eliquis, percocet, pantoprazole. Patient did not have any consultations ordered while in the hospital. No post hospital therapies were ordered. Patient was discharged to home. 11-30-2023 Unclassified (20 sources) [ADDITIONAL REASON] Transition into care - The patient is transitioning into care from a hospital ([facility]) and a summary of care was reviewed. 11-30-2023 Unclassified (20 sources) Follow up from hospital stay - Name of Hospital: [facility]. Date of Admission: 11/20/23. Date of Discharge: 11/21/23. The patient was hospitalized for Cerebral aneurysm, nonruptured. New medications include acetaminophen and Medications discontinued include eliquis, percocet, pantoprazole. Patient did not have any consultations ordered while in the hospital. No post hospital therapies were ordered. Patient was discharged to home. Current Symptoms: Poor eye sight. Note for Follow up from hospital stay: Patient states she was diagnosed with a cerebral aneurysm, nonruptured in May 2023. Patient states she has undergone procedures for stents to help with aneurysm and eye sight. Most recent procedure was this most recent hospital stay 11/20/23. No improvement with eye sight. Has f/u in 6 weeks. 11-30-2023 Unclassified (16 sources) Transition into care - The patient is transitioning into care from a hospital ([facility]) and a summary of care was reviewed. 11-30-2023 Unclassified (16 sources) [ADDITIONAL REASON] Follow up from hospital stay - Name of Hospital: [facility]. Date of Admission: 11/20/23. Date of Discharge: 11/21/23. The patient was hospitalized for Cerebral aneurysm, nonruptured. New medications include acetaminophen and Medications discontinued include eliquis, percocet, pantoprazole. Patient did not have any consultations ordered while in the hospital. No post hospital therapies were ordered. Patient was discharged to home. Current Symptoms: Poor eye sight. Note for Follow up from hospital stay: Patient states she was diagnosed with a cerebral aneurysm, nonruptured in May 2023. Patient states she has undergone procedures for stents to help with aneurysm and eye sight. Most recent procedure was this most recent hospital stay 11/20/23. No improvement with eye sight. Has f/u in 6 weeks. 11-30-2023 Unclassified (20 sources) Well adult female - The patient is sleeping poorly. The patient has a balanced diet and takes supplemental vitamins. The patient does not exercise. The patient sleeps 5 hours per night. Note for Well adult female: Since last appt she had another stent placed in aneurysm - so has 2 stents and [address] Was to have f/u last but had to postpone due to the weather - unsure when next appt will be. 06-30-2024 Unclassified (3 sources) Onset: 5 07-21-2024 Unclassified (1 source) Insomnia - The patient is not currently being treated for this problem. Symptoms include difficulty falling asleep, difficulty staying asleep and daytime sleepiness (will doze off during the day). Onset was month(s) ago (been worse in the past 3 months). The insomnia has been increasing. Note for Insomnia: She did sleep well last night, she was exhausted. She did not sleep the night before. Most nights she is up most of the night.Yesterday coming home from her appointment, she had a hallucination that her grandchildren were in the car with her.Has noticed that she is struggling with time and the time of day. She enjoys taking a bath in the evening and at night, but there have been times where she has been in the bath for a very long time. Family is noticing her short-term memory is not as good. Also she is struggling with mobility and moving around in her house more so in the past few weeks. Would like to discuss physical therapy.Almost been a year since she has lost her vision from an aneurysm.She has been struggling with constipation. 07-22-2024 Unclassified (20 sources) Insomnia - The patient is not currently being treated for this problem. Symptoms include difficulty falling asleep, difficulty staying asleep and daytime sleepiness (will doze off during the day). Onset was month(s) ago (been worse in the past 3 months). The insomnia has been increasing. Note for Insomnia: She did sleep well last night, she was exhausted. She did not sleep the night before. Most nights she is up most of the night.Yesterday coming home from her appointment, she had a hallucination that her grandchildren were in the car with her.Has noticed that she is struggling with time and the time of day. She enjoys taking a bath in the evening and at night, but there have been times where she has been in the bath for a very long time. Apparently once she was in the bathtub until 5am.Family is noticing her short-term memory is not as good. Also she is struggling with mobility and moving around in her house more so in the past few weeks. Would like to discuss physical therapy.Almost been a year since she has lost her vision from an aneurysm.She has been struggling with constipation.Saw neurosurgeon yesterday - repeat CT which showed aneurysm did shrink some. Will be having MRI done due to new onset symptoms of memory, etc. Plavix was discontinued but continued full dose aspirin.Loss of motivation and not enjoying things as much as she used to. Family feels she is very depressed. Ileana says she does feel down at times. Denies suicidal thoughts.Home alone a lot - says she does not feel unsafe when she is there. 07-22-2024 Unclassified (18 sources) multiple concerns - VIKAS 07/22/2024 depression, impairment of both eyes and was given venlafaxineThey feel she is urinating more, she is having accidents in the bed this week. She is constipated as wellHusband and children also feel her venlafaxine needs increased. She said she does not feel better on the medication reviewed by [facility] 08-16-2024 Unclassified (1 source) follow up - VIKAS that she seen you was 07/22/2024 for depression, visual impairment of both eyes. You started patient on Venlafaxine 75 mg and also go her set up with PT and OTPatient then seen [facility] 08/16/2024 for UTI symptoms and also complained of confusion and urinary incontinencePatient is here today for a follow up. She has not yet started PT or OT. Patient has not had any more urinary incontinence episodes and it does not hurt when she urinates. Patient cannot say if the venlafaxine is working or not. Yady and Stephanie have not noticed much of a difference in her until today. Patients daughter Yolanda is on phone, she lives out of state but thinks the medication is helping. is not taking BP at home. Family feels is supportive and patient agrees They also mentioned she has lower leg edema, unsure how longThey have noticed she seems to get very tired around 1:30-2:30 everyday and seems to zone out, patient does agree with this 08-19-2024 Unclassified (11 sources) follow up - VIKAS that she saw [facility] was 07/22/2024 for depression, visual impairment of both eyes. You started patient on Venlafaxine 75 mg and also go her set up with PT and OT.Pt was at [facility], transferred to [place] and then to [facility]. Had UTI and concern for enlarging aneurysm with cerebral edema. Daughter says at that time metoprolol was stopped due to low heart rate and psych changed her from venlafaxine to sertraline. Started on senna as well. Neurosurgeon (Dr. Villa) told daughter that the blood pocket was shrinking and it was above the same amount of cerebral edema she has had all along. He will see her again in 6 months. Unclear on when/if there is a scheduled f/u with psych.She saw cardiology approximately 2 weeks ago and per daughter they supported her staying off the metoprolol but wanted her to monitor BP and pulse which hasn't been done at home. Patient then saw [facility] on 08/16/2024 for UTI symptoms and also complained of confusion and urinary incontinence. UA at the time not convincing for UTI.Patient is here today for a follow up. She has not yet started PT or OT. Apparently has an appt for OT at their facility coming up.Patient has not had any more urinary incontinence episodes and it does not hurt when she urinates (previously had urinary freq/urgency/incontinenc e). No recent baths but now spending significant amount of time (hours) sitting on the toilet. No actively trying to have a BM while doing that.Family feels that just recently perhaps the sertraline is starting to work - Ileana initiated some activities and conversations which she hadn't been doing previously.They also mentioned she has lower leg edema, unsure how long.They have noticed she seems to get very tired around 1:30-2:30 everyday and seems to zone out/fall asleep; patient does agree with this. Emotionless with legs - ex. when she had episode of incontinence at the salon she made it seem like it was no big deal. 08-20-2024 Unclassified (11 sources) [ADDITIONAL REASON] Transition into care - The patient is transitioning into care from a hospital. 08-20-2024 Unclassified (5 sources) Transition into care - The patient is transitioning into care from a hospital. 08-20-2024 Unclassified (5 sources) [ADDITIONAL REASON] follow up - VIKAS that she saw P was 07/22/2024 for depression, visual impairment of both eyes. You started patient on Venlafaxine 75 mg and also go her set up with PT and OT.Pt was at [facility], transferred to [facility] and then to [facility]. Had UTI and concern for enlarging aneurysm with cerebral edema. Daughter says at that time metoprolol was stopped due to low heart rate and psych changed her from venlafaxine to sertraline. Started on senna as well. Neurosurgeon (Dr. Villa) told daughter that the blood pocket was shrinking and it was above the same amount of cerebral edema she has had all along. He will see her again in 6 months. Unclear on when/if there is a scheduled f/u with psych.She saw cardiology approximately 2 weeks ago and per daughter they supported her staying off the metoprolol but wanted her to monitor BP and pulse which hasn't been done at home. Patient then saw [facility] on 08/16/2024 for UTI symptoms and also complained of confusion and urinary incontinence. UA at the time not convincing for UTI.Patient is here today for a follow up. She has not yet started PT or OT. Apparently has an appt for OT at their facility coming up.Patient has not had any more urinary incontinence episodes and it does not hurt when she urinates (previously had urinary freq/urgency/incontinenc e). No recent baths but now spending significant amount of time (hours) sitting on the toilet. No actively trying to have a BM while doing that.Family feels that just recently perhaps the sertraline is starting to work - Ileana initiated some activities and conversations which she hadn't been doing previously.They also mentioned she has lower leg edema, unsure how long.They have noticed she seems to get very tired around 1:30-2:30 everyday and seems to zone out/fall asleep; patient does agree with this. Emotionless with legs - ex. when she had episode of incontinence at the salon she made it seem like it was no big deal. 08-20-2024 Unclassified (7 sources) discuss medications - Pt is here to discuss her medications. Pt feels like she needs an increase in her depression meds, pt is taking Zoloft 25mg now but does not feel any different - family has also not noticed improvement.She is to start in home PT next week.She was doing well with BMs but then ran out of senna and stopped miralax and is constipated again.Home BP readings have been 130s/70s mostly. 09-29-2024 Results Test Name Value Interpretation Reference Range Facility OT General Evaluationon OT General Evaluation [facility] Occupational Therapy [facility] [address] [place] [address] / REHABILITATION SERVICES INITIAL EVALUATION MR#: [id number] Acct: [id number] Name: VASUILEANA NOVOA Rep #: [id number] : 1955 68 From: Janelle Gee Referring Dr.: JI VILLA MD Status: REG RC R Insurance: JOZEF Landa Date: SELF PAY INSURANCE Patient's Visit Information Visit Information Visit Information: ILEANA LEONE is a 68 year old F, referred to Occupational Therapy by JI VILLA MD, with a diagnosis of Aneurysm. Date of Evaluation: 09/08/24 Occupational Therapist: Janelle Gee Subjective Subjective: This 68 year old female arrives with dx of aneurysm which occurred late 2022 beginning of 2023. Pt with embolization as well as stent x2. pt recently in hospital mid jul for UTI. Pt states she is able to get dressed on own as well as using bathroom and washing self. Pt states her R side is weaker pt is R hand dominant. pt has had x1 fall in past 6 months due to stepping off of a curb. pt does not use any AD as means of mobility. denies numbness and tingling of UEs. Objective Objective/Observatio n: arrives able to walk back to OT section no AD needs guidance from due to legally blind ROM ROM Comments: all within functional limits Strength Shoulder: L shoulder flexion 12.1# R shoulder obzcebj41.7# Elbow: L bicep 23.5# R bicep 22.6# L tricep 10.6# R tricep 11.7# Dental Equipment Technician: R 30# L 40# Lateral Pinch: R and L 8# Tripod Pinch: R and L 5# Strength Comments: L ER 16.2# R ER 11.1# Edema Other: denies Sensation Sensation Comments: denies Nine Hole Peg Comments: denies Quick DASH-Disab of Arm,Shoulder Hand Quick DASH Score: 22.7250 Goals Goal:: pt will improve B shoulder flexion strength by 2# or more in order to perform day to day tasks pt will improve B bicep strength by 2# or more in order to perform day to day tasks pt will improve B tricep strength by 2# or more in order to perform day to day tasks Goal:: pt will improve quick dash score by 5 points or more for improved overall use of BUEs Goal:: Pt/ caregiver will demo 100% carryover in UB strengthening HEP program by discharge pt will score morning self care routine in modified dyspnea scale as 3 or less Rehabilitation General Assessment: This 68 year old female arrives with dx of aneurysm. Pt demonstrated deficits in overall UB strength as well as overall aerobic capacity. OT indicated for 2-3 session within 3 weeks to set up strengthening program and provide caregiver education. Rehabilitation Potential: Good Anticipated Interventions Anticipated Interventions: Strengthening, Caregiver Training and Home Program Visit Plan Frequency: 2-3 session Duration: 3 Weeks General Plan: HEP aerobic capacity TEXT: Thank you for the opportunity to evaluate your patient. For Medicare and Medicare HMO plans, please review the plan of care and approve it. It will need to be FAXED BACK to us at [phone] for Medicare purposes. Please let me know if there are questions or concerns regarding this plan of care. Physician Signature: D ate: 09/08/24 1100 CC: KRISTIAN Lockwood; JI VILLA MD CK Signed For Medicare only, by signing this I certify the plan of care. Physicians Signature Date Normal [facility] Laboratory - Chemistry and C hemistry - challengeon 08-22-2024 Bilirubin [Mass/Vol] Negative Normal [employer], [employer]. Glucose [Mass/Vol] NORM Normal [employer], [employer].; [employer]. pH (Bld) 7 [pH] Normal [employer].; [employer] Protein [Mass/Vol] Negative Normal [employer], [employer].; [employer] Laboratory - Hematology and Cell countson 08-22-2024 WBC (Bld) [#/Vol] Negative Normal [employer].; [employer] Laboratory - Microbiology an d Antimicrobial susceptibilityon 08-22-2024 Bacteria identified Cx Nom (U) See Results Below [facility].; [employer]. Bacteria identified Cx Nom (Unsp spec) NONE Normal [facility].; Daniel [facility]. Laboratory - Specimen inform ationon 08-22-2024 Specimen type Nom (Spec) UNSPECIFIED Normal [facility].; [employer]. Laboratory - Urinalysison Urinalysis dipstick W Reflex Microscopic panel (U) URINALYSIS WITH MICROSCOPY Normal [facility].; [employer]. Yeast LM Ql (Urine sed) NONE Normal [facility].; [employer]. No Panel Informationon 08-22 Blood Negative Normal [facility].; [employer]. URINALYSIS WITH MICROSCOPYon 08-22-2024 Amorphous NONE Normal [facility].; [employer]. Comment on above: Performed By: #### 2 [id number] #### [place] [address] Bacteria NONE Normal [facility] Comment on above: Performed By: #### 2 49453 #### [place] [address] Bilirubin Ql (U) Negative Normal NORMAL: NEGATIVE [facility] Comment on above: Performed By: #### 2 18515 #### [place] [address] Casts NONE Normal [facility].; DanielSayduck [facility]. Comment on above: Performed By: #### 2 86351 #### [facility],[address] [place] [address] Clarity (U) clear Normal [facility].; [employer]. Comment on above: Performed By: #### 2 79104 #### [place] [address] Color (U) p.yel Normal [facility].; [facility]. Comment on above: Performed By: #### 2 11391 #### [facility],[address] [place] [address] Crystals LM Nom (Urine sed) NONE Normal [facility].; [facility], [facility]. Comment on above: Performed By: #### 2 64684 #### [facility],[address] [place] [address] Epi Cells OCC Normal [facility]; [facility]. Comment on above: Performed By: #### 2 35617 #### [facility],[address] [place] [address] Glucose Ql (U) NORM Normal NORMAL: NORMAL [facility] Comment on above: Performed By: #### 2 93937 #### [place] [address] Hemoglobin Ql (U) Negative Normal NORMAL: NEGATIVE [facility] Comment on above: Performed By: #### 2 66007 #### [place] [address] Ketone Negative Normal [facility]; [facility]. Comment on above: Performed By: #### 2 01119 #### [place] [address] Leukocytes Negative Normal NORMAL: NEGATIVE [facility] Comment on above: Result Comment: URIN E MICROSCOPIC Performed By: #### 2 37979 #### [facility],[address] [place] [address] Mucous NONE Normal [facility]; [facility]. Comment on above: Performed By: #### 2 33335 #### [facility],[address] [place] [address] Nitrite Ql (U) Negative Normal [facility]; [facility], [facility]. Comment on above: Performed By: #### 2 80037 #### [facility],[address] [place] [address] pH (U) 7 [pH] Normal NORMAL: 5.0-8.0 [facility] Comment on above: Performed By: #### 2 46601 #### [facility],[address] [place] [address] Protein Ql (U) Negative Normal NORMAL: NEGATIVE [facility] Comment on above: Performed By: #### 2 28063 #### [facility],[address] [place] [address] Rbc 0-5 Normal 0 - 3 [facility].; [facility], [facility]. Comment on above: Performed By: #### 2 13494 #### [facility],[address] [place] [address] Sp [place] 1.010 Normal [facility].; [facility], [facility]. Comment on above: Performed By: #### 2 89452 #### [facility],[address] [place] [address] Specimen Type UNSPECIFIED Normal [facility] Comment on above: Performed By: #### 2 98967 #### [facility],[address] [place] [address] URINALYSIS WITH MICROSCOPY Normal [facility] Comment on above: Result Comment: URIN ALYSIS Performed By: #### 2 36155 #### [facility],[address] [place] [address] Urobilinog NORM Normal [facility].; [facility], [facility]. Comment on above: Performed By: #### 2 57873 #### [facility],[address] [place] [address] Wbc 1-5 Normal 0 - 5 [facility], [facility].; [facility], [employer]. Comment on above: Performed By: #### 2 51070 #### [facility],[address] [place] [address] Yeast NONE Normal [facility] Comment on above: Performed By: #### 2 50613 #### [place] [address] URINE CULTURE [CCL]on 2024 Bacteria identified Cx Nom (U) URCUL See Results Below See Below CULTURE, URINE NORMAL UROGENITAL TAE 10,000 -<50,000 CFU/ml Normal urogenital tae SOURCE: Urine (Nonspecific) [facility] [address] [place] [address] Krish Manzo III, M.D. [id number] Normal [facility] Comment on above: Performed By: #### 2 70678 #### [place] [address] Laboratory - Chemistry and C hemistry - challengeon 08-16-2024 Bilirubin Ql (U) Negative Normal [facility], [employer].; [employer], [employer]. Ketones Ql (U) 15 mg/dl Normal [facility] [employer]elle [employer], [employer].; [employer], [employer]. pH (U) 7.0 [pH] Normal [employer].; [employer] Specific gravity (U) [Rel density] 1.020 Normal [employer].; [employer], [employer]. Urobilinogen Qn (U) 0.2 mg/dL Normal [facility] [employer].; [employer], [employer]. Laboratory - Hematology and Cell countson 08-16-2024 Hemoglobin Ql (U) Negative Normal [employer].; [employer], [employer]. Laboratory - Specimen inform ationon 08-16-2024 Appearance (U) cloudy Abnormal [facility] [employer].; [employer], [employer]. Color (U) yellow Normal [employer].; [employer], [employer]. Laboratory - Urinalysison Glucose Test strip (U) [Mass/Vol] Negative Normal [employer].; [employer] Leukocyte esterase Test strip Ql (U) trace Normal [facility].; [facility], [facility]. Nitrite Ql (U) Negative Normal [facility].; [facility], [facility]. Protein Ql (U) Negative Normal [facility].; [facility], [facility]. CBC,PLATELETSon 07-29-2024 Erythrocyte distribution width (RBC) [Ratio] 13.9 % 10.8 - 14.9 % [facility] Hematocrit (Bld) [Volume fraction] 44.6 % High 34.9 - 44.3 % [facility] Hemoglobin (Bld) [Mass/Vol] 15.3 g/dL High 11.4 - 15.2 g/dL [facility] Interpretation and review of laboratory results Abnormal [facility] MCH (RBC) [Entitic mass] 28.8 pg 25.9 - 33.9 pg [facility] MCHC (RBC) [Mass/Vol] 34.3 g/dL 31.4 - 35.9 g/dL [facility] MCV (RBC) [Entitic vol] 84 fL 79.6 - 97.7 fL [facility] Platelet mean volume (Bld) [Entitic vol] 10.6 fL 8.5 - 12.2 fL [facility] Platelets (Bld) [#/Vol] 231 10*3/uL 150 - 393 K/uL [facility] RBC (Bld) [#/Vol] 5.31 10*6/uL High [facility] WBC (Bld) [#/Vol] 7.82 10*3/uL 3.99 - 11. 19 K/uL [facility] Hematocrit (Bld) [Volume fraction] 44.6 % High 34.9-44.[address] [facility] Comment on above: Performed By: #### C 7ED, RF, ANCA, YAMADHU #### [facility] (DEFAULT) [address] [place] [address] Hemoglobin (Bld) [Mass/Vol] 15.3 g/dL High 11.4-15.[address] [facility] Comment on above: Performed By: #### C 7ED, RF, ANCA, YACE #### [facility] (DEFAULT) [address] [address] MCV (RBC) [Entitic vol] 84.0 fL Normal 79.6-97.[address] [facility] Comment on above: Performed By: #### C 7ED, RF, ANCA, YACE #### [facility] (DEFAULT) [address] [place] [address] Mean Cell Hgb 28.8 pg Normal 25.9-33.[address] [facility] Comment on above: Performed By: #### C 7ED, RF, ANCA, YACE #### [facility] (DEFAULT) [address] [address] Mean Cell Hgb Conc 34.3 g/dL Normal 31.4-35.9 [facility] Comment on above: Performed By: #### C 7ED, RF, ANCA, YACE #### [facility] (DEFAULT) [address] [place] [address] Platelet mean volume (Bld) [Entitic vol] 10.6 fL Normal 8.5-12.[address] [facility] Comment on above: Performed By: #### C 7ED, RF, ANCA, YACE #### [facility] (DEFAULT) [address] [place] [address] Platelets (Bld) [#/Vol] 231 10*3/uL Normal 150-[address] [facility] Comment on above: Performed By: #### C 7ED, RF, ANCA, YACE #### [facility] (DEFAULT) [address] [address] RBC (Bld) [#/Vol] 5.31 10*6/uL High 3.91-5.[address] [facility] Comment on above: Performed By: #### C 7ED, RF, ANCA, YACE #### [facility] (DEFAULT) [address] [place] [address] RBC Distribution 13.9 % Normal 10.8-14.9 [facility] Comment on above: Performed By: #### Teri MENDOZA, REGINO, MARKUS, BARRY #### [facility] (DEFAULT) [address] [place] [address] WBC (Bld) [#/Vol] 7.82 10*3/uL Normal 3.99-11.[address] [facility] Comment on above: Performed By: #### Teri MENDOZA, RF, ANCA, BARRY #### [facility] (DEFAULT) [address] [place] [address] CHEM 7 (LYTES,BUN,CREA,GLUC) on 07-29-2024 Anion gap [Moles/Vol] 14 mmol/L 7 - 17 mmol/L [facility] Chloride [Moles/Vol] 98 mmol/L 98 - 10 8 mmol/L [facility] CO2 [Moles/Vol] 25 mmol/L 21 - 31 mmol/L [facility] Creatinine [Mass/Vol] 0.75 mg/dL 0.50 - 1.20 mg/dL [facility] eGFR, CKD-EPI, Female 87 - PINF [facility] Comment on above: Reported eGFR is bas ed on the CKD-EPI 2020 equation using creatinine, age, and sex. Glucose [Mass/Vol] 104 mg/dL High 70 - 99 mg/dL [facility] Interpretation and review of laboratory results Abnormal [facility] Osmolality Calc [Osmolality] 283 [facility] Potassium [Moles/Vol] 4 mmol/L 3.5 - 5.0 mmol/L [facility] Sodium [Moles/Vol] 133 mmol/L Low 135 - 145 mmol/L [facility] Urea nitrogen [Mass/Vol] 21 mg/dL 7 - 25 mg/dL [facility] Urea nitrogen/Creatinine [Mass ratio] 28 mg/mg [facility] Anion gap [Moles/Vol] 14 mmol/L Normal 7-17 [facility] Comment on above: Performed By: #### Teri 7ED, RF, ANCA, YACE #### [facility] (DEFAULT) [address] [place] [address] Chloride [Moles/Vol] 98 mmol/L Normal 98-[address] [facility] Comment on above: Performed By: #### Teri 7ED, RF, ANCA, YACE #### [facility] (DEFAULT) [address] [place] [address] CO2 [Moles/Vol] 25 mmol/L Normal 21-31 [facility] Comment on above: Performed By: #### Teri FernandezD, RF, ANCA, YACE #### [facility] (DEFAULT) [address] [place] [address] Creatinine [Mass/Vol] 0.75 mg/dL Normal 0.50-1.20 [facility] Comment on above: Performed By: #### Teri 7ED, RF, ANCA, YACE #### [facility] (DEFAULT) [address] [place] [address] GFR/1.73 sq M.predicted among non-blacks MDRD (S/P/Bld) [Vol rate/Area] 87 mL/min/{1.73_m2} Normal >=[address] [facility] Comment on above: Result Comment: Repo rted eGFR is based on the CKD-EPI 2020 equation using creatinine, age, and sex. Performed By: #### Teri 7ED, RF, ANCA, YACE #### [facility] (DEFAULT) [address] [place] [address] Glucose [Mass/Vol] 104 mg/dL High 70-99 [facility] Comment on above: Performed By: #### eTri 7ED, RF, ANCA, YACE #### [facility] (DEFAULT) [address] [place] [address] Osmolality [Osmolality] 283 mosm/kg Normal 278-[address] [facility] Comment on above: Performed By: #### Teri 7ED, RF, ANCA, YACE #### [facility] (DEFAULT) [address] [place] [address] Potassium [Moles/Vol] 4.0 mmol/L Normal 3.5-5.0 [facility] Comment on above: Performed By: #### C 7ED, RF, ANCA, YACE #### [facility] (DEFAULT) [address] [place] [address] Sodium [Moles/Vol] 133 mmol/L Low 135-145 [facility] Comment on above: Performed By: #### C 7ED, RF, ANCA, YACE #### [facility] (DEFAULT) [address] [place] [address] Urea nitrogen [Mass/Vol] 21 mg/dL Normal 7-[address] [facility] Comment on above: Performed By: #### C 7ED, RF, ANCA, YACE #### [facility] (DEFAULT) [address] [place] [address] Urea nitrogen/Creatinine [Mass ratio] 28 mg/mg Normal [facility] Comment on above: Performed By: #### C 7ED, RF, ANCA, YACE #### [facility] (DEFAULT) [address] [place] [address] IONIZED CALCIUM, WHOLE BLOOD Ordered By: Freddie Ratliff on 07-29-2024 Calcium.ionized (Bld) [Moles/Vol] 4.73 mg/dL 4.60 - 5.30 mg/dL [facility] Interpretation and review of laboratory results Normal [facility] IONIZED CALCIUM, WHOLE BLOOD on 07-29-2024 ICA 4.73 mg/dL Normal 4.60-5.[address] [facility] Comment on above: Performed By: #### C 7ED, RF, ANCA, YACE #### [facility] (DEFAULT) [address] [place] [address] MAGNESIUMon 07-29-2024 Interpretation and review of laboratory results Normal [facility] Magnesium [Mass/Vol] 2.1 mg/dL 1.6 - 2 .6 mg/dL [facility] Magnesium [Mass/Vol] 2.1 mg/dL Normal 1.6-2.[address] [facility] Comment on above: Performed By: #### REGINO HUSSEIN ANCA, BARRY #### [facility] (DEFAULT) [address] [place] [address] No Panel Informationon 07-29 [facility] PHOSPHATE, INORGANICon 07-29 Interpretation and review of laboratory results Normal [facility] Phosphate [Mass/Vol] 3.5 mg/dL 2.2 - 4 .6 mg/dL [facility] Phosphorous 3.5 mg/dL Normal 2.2-4.[address] [facility] Comment on above: Performed By: #### REGINO HUSSEIN ANCA, BARRY #### [facility] (DEFAULT) [address] [place], [place] [id number] CBC,PLATELETSon 07-28-2024 Erythrocyte distribution width (RBC) [Ratio] 13.7 % 10.8 - 14.9 % [facility] Hematocrit (Bld) [Volume fraction] 42.2 % 34.9 - 44.3 % [facility] Hemoglobin (Bld) [Mass/Vol] 14.1 g/dL 11.4 - 15.2 g/dL [facility] Interpretation and review of laboratory results Normal [facility] MCH (RBC) [Entitic mass] 28.3 pg 25.9 - 33.9 pg [facility] MCHC (RBC) [Mass/Vol] 33.4 g/dL 31.4 - 35.9 g/dL [facility] MCV (RBC) [Entitic vol] 84.7 fL 79.6 - 97.7 fL [facility] Platelet mean volume (Bld) [Entitic vol] 11 fL 8.5 - 12.2 fL [facility] Platelets (Bld) [#/Vol] 203 10*3/uL 150 - 393 K/uL [facility] RBC (Bld) [#/Vol] 4.98 10*6/uL [facility] WBC (Bld) [#/Vol] 7.36 10*3/uL 3.99 - 11. 19 K/uL [facility] Hematocrit (Bld) [Volume fraction] 42.2 % Normal 34.9-44.[address] [facility] Comment on above: Performed By: #### C 7ED, RF, ANCA, YACE #### [facility] (DEFAULT) [address] [place] [address] Hemoglobin (Bld) [Mass/Vol] 14.1 g/dL Normal 11.4-15.[address] [facility] Comment on above: Performed By: #### C 7ED, RF, ANCA, YACE #### [facility] (DEFAULT) [address] [place] [address] MCV (RBC) [Entitic vol] 84.7 fL Normal 79.6-97.[address] [facility] Comment on above: Performed By: #### C 7ED, RF, ANCA, YACE #### [facility] (DEFAULT) [address] [place] [address] 29647 Mean Cell Hgb 28.3 pg Normal 25.9-33.[address] [facility] Comment on above: Performed By: #### C 7ED, RF, ANCA, YACE #### [facility] (DEFAULT) [address] [place] [address] 96774 Mean Cell Hgb Conc 33.4 g/dL Normal 31.4-35.9 [facility] Comment on above: Performed By: #### C 7ED, RF, ANCA, YACE #### [facility] (DEFAULT) [address] [place] [address] 22697 Platelet mean volume (Bld) [Entitic vol] 11.0 fL Normal 8.5-12.[address] [facility] Comment on above: Performed By: #### C 7ED, RF, ANCA, YACE #### [facility] (DEFAULT) [address] [place] [address] 45573 Platelets (Bld) [#/Vol] 203 10*3/uL Normal 150-[address] [facility] Comment on above: Performed By: #### C 7ED, RF, ANCA, YACE #### [facility] (DEFAULT) [address] [place] [address] 66442 RBC (Bld) [#/Vol] 4.98 10*6/uL Normal 3.91-5.[address] [facility] Comment on above: Performed By: #### C 7ED, RF, ANCA, YACE #### [facility] (DEFAULT) [address] [place] [address] 04671 RBC Distribution 13.7 % Normal 10.8-14.9 [facility] Comment on above: Performed By: #### Teri 7ED, RF, ANCA, YACE #### [facility] (DEFAULT) [address] [place] [address] 38907 WBC (Bld) [#/Vol] 7.36 10*3/uL Normal 3.99-11.[address] [facility] Comment on above: Performed By: #### C 7ED, RF, ANCA, YACE #### [facility] (DEFAULT) [address] [place] [address] 74453 CHEM 7 (LYTES,BUN,CREA,GLUC) on 07-28-2024 Anion gap [Moles/Vol] 13 mmol/L 7 - 17 mmol/L [facility] Chloride [Moles/Vol] 99 mmol/L 98 - 10 8 mmol/L [facility] CO2 [Moles/Vol] 25 mmol/L 21 - 31 mmol/L [facility] Creatinine [Mass/Vol] 0.79 mg/dL 0.50 - 1.20 mg/dL [facility] eGFR, CKD-EPI, Female 82 - PINF [facility] Comment on above: Reported eGFR is bas ed on the CKD-EPI 2020 equation using creatinine, age, and sex. Glucose [Mass/Vol] 107 mg/dL High 70 - 99 mg/dL [facility] Interpretation and review of laboratory results Abnormal [facility] Osmolality Calc [Osmolality] 280 [facility] Potassium [Moles/Vol] 3.9 mmol/L 3.5 - 5.0 mmol/L [facility] Sodium [Moles/Vol] 133 mmol/L Low 135 - 145 mmol/L [facility] Urea nitrogen [Mass/Vol] 14 mg/dL 7 - 25 mg/dL [facility] Urea nitrogen/Creatinine [Mass ratio] 18 mg/mg [facility] Anion gap [Moles/Vol] 13 mmol/L Normal 7-17 [facility] Comment on above: Performed By: #### L [id number] #### [facility] (DEFAULT) [address] [place] [address] 59497 Chloride [Moles/Vol] 99 mmol/L Normal 98-[address] [facility] Comment on above: Performed By: #### L AB980 #### [facility] (DEFAULT) [address] [place] [address] 88916 CO2 [Moles/Vol] 25 mmol/L Normal 21-31 [facility] Comment on above: Performed By: #### L AB980 #### [facility] (DEFAULT) [address] [place] [address] 60034 Creatinine [Mass/Vol] 0.79 mg/dL Normal 0.50-1.20 [facility] Comment on above: Performed By: #### L AB980 #### [facility] (DEFAULT) [address] [address] GFR/1.73 sq M.predicted among non-blacks MDRD (S/P/Bld) [Vol rate/Area] 82 mL/min/{1.73_m2} Normal >=[address] [facility] Comment on above: Result Comment: Repo rted eGFR is based on the CKD-EPI 2020 equation using creatinine, age, and sex. Performed By: #### L AB980 #### [facility] (DEFAULT) [address] [address] Glucose [Mass/Vol] 107 mg/dL High 70-99 [facility] Comment on above: Performed By: #### L AB980 #### [facility] (DEFAULT) [address] [place] [address] 99715 Osmolality [Osmolality] 280 mosm/kg Normal 278-[address] [facility] Comment on above: Performed By: #### L AB980 #### [facility] (DEFAULT) [address] [place] [address] 15919 Potassium [Moles/Vol] 3.9 mmol/L Normal 3.5-5.0 [facility] Comment on above: Performed By: #### L AB980 #### [facility] (DEFAULT) [address] [place] [address] 92502 Sodium [Moles/Vol] 133 mmol/L Low 135-145 [facility] Comment on above: Performed By: #### L AB980 #### [facility] (DEFAULT) [address] [place] [address] 37120 Urea nitrogen [Mass/Vol] 14 mg/dL Normal 7-[address] [facility] Comment on above: Performed By: #### L AB980 #### [facility] (DEFAULT) [address] [place] [address] 93176 Urea nitrogen/Creatinine [Mass ratio] 18 mg/mg Normal [facility] Comment on above: Performed By: #### L AB980 #### [facility] (DEFAULT) [address] [place] [address] 10127 IONIZED CALCIUM, WHOLE BLOOD Ordered By: Margarita Bello on 07-28-2024 Calcium.ionized (Bld) [Moles/Vol] 4.21 mg/dL Low 4.60 - 5.30 mg/dL [facility] Interpretation and review of laboratory results Abnormal [facility] IONIZED CALCIUM, WHOLE BLOOD on 07-28-2024 ICA 4.21 mg/dL Low 4.60-5.[address] [facility] Comment on above: Performed By: #### C 7ED, RF, ANCA, YACE #### [facility] (DEFAULT) [address] [place] [address] 82762 MAGNESIUMon 07-28-2024 Magnesium [Mass/Vol] 1.9 mg/dL 1.6 - 2 .6 mg/dL [facility] Magnesium [Mass/Vol] 1.9 mg/dL Normal 1.6-2.[address] [facility] Comment on above: Performed By: #### L [id number] #### [facility] (DEFAULT) [address] [place] [address] No Panel Informationon 07-28 Interpretation and review of laboratory results Normal [facility] PHOSPHATE, INORGANICon 07-28 Phosphate [Mass/Vol] 3.4 mg/dL 2.2 - 4 .6 mg/dL [facility] Phosphorous 3.4 mg/dL Normal 2.2-4.[address] [facility] Comment on above: Performed By: #### L [id number] #### [facility] (DEFAULT) [address] [place] [address] 61639 CBC,PLATELETSon 07-27-2024 Erythrocyte distribution width (RBC) [Ratio] 13.3 % 10.8 - 14.9 % [facility] Hematocrit (Bld) [Volume fraction] 47.4 % High 34.9 - 44.3 % [facility] Hemoglobin (Bld) [Mass/Vol] 15.6 g/dL High 11.4 - 15.2 g/dL [facility] Interpretation and review of laboratory results Abnormal [facility] MCH (RBC) [Entitic mass] 28.3 pg 25.9 - 33.9 pg [facility] MCHC (RBC) [Mass/Vol] 32.9 g/dL 31.4 - 35.9 g/dL [facility] MCV (RBC) [Entitic vol] 85.9 fL 79.6 - 97.7 fL [facility] Platelet mean volume (Bld) [Entitic vol] 10.6 fL 8.5 - 12.2 fL [facility] Platelets (Bld) [#/Vol] 176 10*3/uL 150 - 393 K/uL [facility] RBC (Bld) [#/Vol] 5.52 10*6/uL High [facility] WBC (Bld) [#/Vol] 6.39 10*3/uL 3.99 - 11. 19 K/uL [facility] Hematocrit (Bld) [Volume fraction] 47.4 % High 34.9-44.[address] [facility] Comment on above: Performed By: #### H [facility] #### [facility] (DEFAULT) [address] [address] Hemoglobin (Bld) [Mass/Vol] 15.6 g/dL High 11.4-15.[address] [facility] Comment on above: Performed By: #### H EMO #### [facility] (DEFAULT) [address] [address] MCV (RBC) [Entitic vol] 85.9 fL Normal 79.6-97.[address] [facility] Comment on above: Performed By: #### H EMO #### [facility] (DEFAULT) [address] [address] Mean Cell Hgb 28.3 pg Normal 25.9-33.[address] [facility] Comment on above: Performed By: #### H EMO #### [facility] (DEFAULT) [address] [address] Mean Cell Hgb Conc 32.9 g/dL Normal 31.4-35.9 [facility] Comment on above: Performed By: #### H EMOGC #### [facility] (DEFAULT) [address] [address] Platelet mean volume (Bld) [Entitic vol] 10.6 fL Normal 8.5-12.[address] [facility] Comment on above: Performed By: #### H EMOGC #### [facility] (DEFAULT) [address] [place] [address] Platelets (Bld) [#/Vol] 176 10*3/uL Normal 150-[address] [facility] Comment on above: Performed By: #### H EMO #### [facility] (DEFAULT) [address] [place] [address] RBC (Bld) [#/Vol] 5.52 10*6/uL High 3.91-5.[address] [facility] Comment on above: Performed By: #### H EMO #### [facility] (DEFAULT) [address] [place] [address] 17270 RBC Distribution 13.3 % Normal 10.8-14.9 [facility] Comment on above: Performed By: #### H EMO #### [facility] (DEFAULT) [address] [place] [address] 79513 WBC (Bld) [#/Vol] 6.39 10*3/uL Normal 3.99-11.[address] [facility] Comment on above: Performed By: #### [facility] #### [facility] (DEFAULT) [address] [place] [address] 29174 CHEM 7 (LYTES,BUN,CREA,GLUC) on 07-27-2024 Anion gap [Moles/Vol] 15 mmol/L 7 - 17 mmol/L [facility] Chloride [Moles/Vol] 100 mmol/L 98 - 10 8 mmol/L [facility] CO2 [Moles/Vol] 26 mmol/L 21 - 31 mmol/L [facility] Creatinine [Mass/Vol] 0.67 mg/dL 0.50 - 1.20 mg/dL [facility] eGFR, CKD-EPI, Female - PINF [facility] Comment on above: Reported eGFR is bas ed on the CKD-EPI 2020 equation using creatinine, age, and sex. Glucose [Mass/Vol] 101 mg/dL High 70 - 99 mg/dL [facility] Interpretation and review of laboratory results Abnormal [facility] Osmolality Calc [Osmolality] 286 [facility] Potassium [Moles/Vol] 3.8 mmol/L 3.5 - 5.0 mmol/L [facility] Sodium [Moles/Vol] 137 mmol/L 135 - 145 mmol/L [facility] Urea nitrogen [Mass/Vol] 11 mg/dL 7 - 25 mg/dL [facility] Urea nitrogen/Creatinine [Mass ratio] 16 mg/mg [facility] Anion gap [Moles/Vol] 15 mmol/L Normal 7-17 [facility] Comment on above: Performed By: #### Teri MENDOZA, RF, ANCA, YACE #### [facility] (DEFAULT) [address] [place] [address] 67348 Chloride [Moles/Vol] 100 mmol/L Normal 98-[address] [facility] Comment on above: Performed By: #### Teri MENDOZA, RF, ANCA, YACE #### [facility] (DEFAULT) [address] [place] [address] 93048 CO2 [Moles/Vol] 26 mmol/L Normal 21-31 [facility] Comment on above: Performed By: #### Teri 7ED, RF, ANCA, YACE #### [facility] (DEFAULT) [address] [place] [address] 08349 Creatinine [Mass/Vol] 0.67 mg/dL Normal 0.50-1.20 [facility] Comment on above: Performed By: #### Teri 7ED, RF, ANCA, YACE #### [facility] (DEFAULT) [address] [place] [address] 25017 eGFR, CKD-EPI, Female > Normal >=60 [facility] Comment on above: Result Comment: Repo rted eGFR is based on the CKD-EPI 2020 equation using creatinine, age, and sex. Performed By: #### Teri 7ED, RF, ANCA, YACE #### [facility] (DEFAULT) [address] [place] [address] 17141 Glucose [Mass/Vol] 101 mg/dL High 70-99 [facility] Comment on above: Performed By: #### C 7ED, RF, ANCA, YACE #### [facility] (DEFAULT) [address] [place] [address] 87680 Osmolality [Osmolality] 286 mosm/kg Normal 278-[address] [facility] Comment on above: Performed By: #### C 7ED, RF, ANCA, YACE #### [facility] (DEFAULT) [address] [place] [address] 08816 Potassium [Moles/Vol] 3.8 mmol/L Normal 3.5-5.0 [facility] Comment on above: Performed By: #### C 7ED, RF, ANCA, YACE #### [facility] (DEFAULT) [address] [place] [address] 86257 Sodium [Moles/Vol] 137 mmol/L Normal 135-145 [facility] Comment on above: Performed By: #### C 7ED, RF, ANCA, YACE #### [facility] (DEFAULT) [address] [place] [address] 83911 Urea nitrogen [Mass/Vol] 11 mg/dL Normal 7-[address] [facility] Comment on above: Performed By: #### C 7ED, RF, ANCA, YACE #### [facility] (DEFAULT) [address] [place] [address] 56201 Urea nitrogen/Creatinine [Mass ratio] 16 mg/mg Normal [facility] Comment on above: Performed By: #### C 7ED, RF, ANCA, YACE #### [facility] (DEFAULT) [address] [place] [address] 32305 Cardiac echo study Procedure Ordered By: Jason Love on 07-27-2024 Ao ASC index 1.51 cm/m2 [facility] Work Phone: Ao peak john 1.25 m/s [facility] Work Phone: Ao SOV index 1.63 cm/m2 [facility] Work Phone: Ao STJ index 1.27 cm/m2 [facility]: Ao VTI 31.06 cm [facility] Work Phone: [facility]ending [facility] 2.95 [facility] LVOT peak gradient 6 mmHg [facility] Work [facility]: [facility] gradient [facility]: [facility] peak gradient 6 mmHG [facility] Work Phone: AV valve area 2.78 cm2 [facility] Work Phone: AV Velocity Ratio 1.02 [facility] Work Phone: FRANCISCO (continuity Vmax) 3.1 cm2 [facility] Work Phone: FRANCISCO (continuity VTI) 2.78 cm2 [facility] Work Phone: FRANCISCO index (continuity Vmax) 1.58 m/s [facility] Work Phone: FRANCISCO index (continuity VTI) 1.42 cm2/m2 [facility] Work Phone: Avg e' pk john 0.08 m/s [facility] Work Phone: Avg E/e' ratio 7.62 [facility] Work Phone: Body surface area Derived from formula 1.96 m2 [facility] Work Phone: BP EF 62 % [facility] Work Phone: DI (Vmax) 1.02 [facility] Work Phone: DI (VTI) 0.91 m/2 [facility] Work Phone: E wave decelartion time 222.1 msec [facility] Work Phone: e' lateral pk john 0.0898 m/s [facility] Work Phone: e' lateral pk john 0.09 m/s [facility] Work Phone: e' septal pk john 0.0701 m/s [facility] Work Phone: e' septal pk john 0.07 m/s [facility] Work Phone: E/A ratio 1.07 [facility] Work Phone: E/e' lateral ratio 6.68 [facility] Work Phone: E/e' septal ratio 8.56 [facility] Work Phone: EF SP 2CH 57 [facility] Work Phone: EF SP 4CH 64 [facility] Work Phone: FS 32 % [facility] Work Phone: IVS 0.96 cm [facility] Work Phone: LA area 4CH 19.86 cm2 [facility] Work Phone: LA ESV BP (MOD) 62 mL [facility] Work Phone: LA ESV BP (MOD) index 32 mL/m2 [facility] Work Phone: LA ESV SP 2CH (MOD) 65 mL [facility] Work Phone: LA ESV SP 4CH (MOD) 55 mL [facility] Work Phone: LV EDV BP 65 mL [facility] Work Phone: LV EDV SP 2CH 47 mL [facility] Work Phone: LV EDV SP 4CH 89 mL [facility] Work Phone: LV ESV BP 25 mL [facility] Work Phone: LV ESV SP 2CH 20 mL [facility] Work Phone: LV ESV SP 4CH 32 mL [facility] Work Phone: LV mass 118.23 g [facility] Work Phone: LV Mass Index 60.3 g/m2 [facility] Work Phone: LV RWT 0.47 [facility] Work Phone: LV stroke volume BP (ml) 40 mL [facility] Work Phone: LV stroke volume index BP 20.41 mL/m2 [facility] Work Phone: LVIDD 4 cm [facility] Work Phone: LVIDS 2.74 cm [facility] Work Phone: LVOT area 3.05 cm2 [facility] Work Phone: LVOT diameter 1.97 cm [facility] Work Phone: LVOT peak john 1.27 m/s [facility] Work Phone: LVOT peak VTI 28.37 cm [facility] Work Phone: LVOT stroke volume 86 cm3 [facility] Work Phone: LVOT stroke volume index 44.1 ml/m2 [facility] Work Phone: MV pk A john 0.56 m/s [facility] Work Phone: MV pk E john 0.6 m/s [facility] Work Phone: [facility] AV VTI RATIO PRE STRESS 0.91 [facility] Work Phone: [facility] ECHO LV BIPLANE SYSTOLIC VOLUME INDEX 12.76 mL/m2 [facility] Work Phone: [facility] ECHO LV BP DIASTOLIC VOLUME INDEX 33.16 mL/m2 [facility] Work Phone: PV mean gradient 2 mmHg [facility] Work Phone: PV peak gradient 3 mmHg [facility] Work Phone: PV PK JOHN 0.87 m/s [facility] Work Phone: PW 0.94 cm [facility] Work Phone: RA area 4CH (MOD) 16.05 cm2 [facility]: RA vol index 4CH (MOD) 20.41 mL/m2 [facility] Work Phone: Right atrium volume 4 chamber method of disks 40 mL [facility] Work Phone: RV basal diam 4.23 cm [facility] Work Phone: RV long diam 5.92 cm [facility] Work Phone: RV mid diam 2.13 cm [facility] Work Phone: RV S' 14.6 cm/s [facility] Work Phone: RVOT peak gradient 2 mmHg [facility] Work Phone: RVOT peak john 0.7 m/s [facility] Work Phone: RVOT peak VTI 17.6 cm [facility] Work Phone: Sinus 3.2 cm [facility] Work Phone: STJ 2.49 cm [facility] Work Phone: Stroke Volume 86 cm/mL [facility] Work Phone: Stroke volume index 44 [facility] Work Phone: TAPSE 2.6 cm [facility] Work Phone: [facility] Work Phone: Cardiac echo study Procedure on 07-27-2024 No prior study at this institution for comparison. Agitated saline contrast study is negative for a right to left shunt. Left Ventricle: Chamber size is normal. Normal wall thickness. Normal global systolic function. Regional wall motion is normal. The ejection fraction is 62%. Ejection fraction by modified Thomas's rule is normal (60 - 65%). Diastolic function is normal. Right Ventricle: Chamber size is normal. Systolic function is normal. No significant valve disease. Left Ventricle Chamber size is normal. Normal wall thickness. Normal global systolic function. Regional wall motion is normal. The ejection fraction is 62%. Ejection fraction by modified Htomas's rule is normal (60 - 65%). Diastolic function is normal. Right Ventricle Chamber size is normal. Systolic function is normal. Left Atrium Chamber size is normal. Right Atrium Chamber size is normal. IVC/SVC The inferior vena cava is normal in size. The inferior vena cava structure has a diameter <21 mm and decreases >50% during inspiration. Mitral Valve Normal appearing leaflets. Leaflet mobility is normal. No regurgitation. No valve stenosis. Tricuspid Valve Normal leaflets. Leaflet mobility is normal. Trace regurgitation. No stenosis. Pulmonary artery systolic pressure (PASP) is unable to be estimated. Aortic Valve Trileaflet valve. Leaflet mobility is normal. No regurgitation. No stenosis. Pulmonic Valve Normal structure. Trace regurgitation. No stenosis. Pericardium No pericardial effusion. Septum The atrial septum is normal. Pulmonary Artery Pulmonary artery not well visualized. Aorta No dilation to extent seen. SOV: 3.20 cm. STJ: 2.49 cm. Ascendin.95 cm. Study Details A complete echocardiography study (including color flow Doppler, spectral Doppler, M-mode and agitated saline contrast) was performed. Imaging system used: I Gotchu. Indications Indications for study: syncope. Wall Scoring Score Index: 1.00 The left ventricular wall motion is normal. [facility] Radiology Study observation (narrative) [facility] ECHOCARDIOGRAMon 07-27-2024 Echocardiography ? No prior study at this institution for comparison. ? Agitated saline contrast study is negative for a right to left shunt. ? Left Ventricle: Chamber size is normal. Normal wall thickness. Normal global systolic function. Regional wall motion is normal. The ejection fraction is 62%. Ejection fraction by modified Thomas's rule is normal (60 - 65%). Diastolic function is normal. ? Right Ventricle: Chamber size is normal. Systolic function is normal. ? No significant valve disease. Table formatting from the original result was not included. Images from the original result were not included. [facility] Facility [facility] Patient Information Patient Name Ileana Leone Legal Sex Female Indication for Exam Priority: Routine Dx: Syncope, unspecified syncope type [R55 (ICD-10-CM)] Order Question Reason for Exam syncope workup Interpretation Summary Result History is available. ? No prior study at this institution for comparison. ? Agitated saline contrast study is negative for a right to left shunt. ? Left Ventricle: Chamber size is normal. Normal wall thickness. Normal global systolic function. Regional wall motion is normal. The ejection fraction is 62%. Ejection fraction by modified Thomas's rule is normal (60 - 65%). Diastolic function is normal. ? Right Ventricle: Chamber size is normal. Systolic function is normal. ? No significant valve disease. Findings Left Ventricle Chamber size is normal. Normal wall thickness. Normal global systolic function. Regional wall motion is normal. The ejection fraction is 62%. Ejection fraction by modified Thomas's rule is normal (60 - 65%). Diastolic function is normal. Right Ventricle Chamber size is normal. Systolic function is normal. Left Atrium Chamber size is normal. Right Atrium Chamber size is normal. Septum The atrial septum is normal. Mitral Valve Normal appearing leaflets. Leaflet mobility is normal. No regurgitation. No valve stenosis. Aortic Valve Trileaflet valve. Leaflet mobility is normal. No regurgitation. No stenosis. Tricuspid Valve Normal leaflets. Leaflet mobility is normal. Trace regurgitation. No stenosis. Pulmonary artery systolic pressure (PASP) is unable to be estimated. Pulmonic Valve Normal structure. Trace regurgitation. No stenosis. Aorta No dilation to extent seen. SOV: 3.20 cm. STJ: 2.49 cm. Ascendin.95 cm. Pericardium No pericardial effusion. IVC/SVC The inferior vena cava is normal in size. The inferior vena cava structure has a diameter <21 mm and decreases >50% during inspiration. Pulmonary Artery Pulmonary artery not well visualized. Reading Providers Reading Role Read Date Jason Love MD Echo [place] 07/27/2024 Wall Scoring Score Index: 1.00 The left ventricular wall motion is normal. Left Heart Measurements LV - Systole LVIDD 4 cm IVS 0.96 cm LVIDS 2.74 cm PW 0.94 cm LV RWT 0.47 LV Mass Index 60.3 g/m2 LV EDV BP 65 mL LV ESV BP 25 mL BP EF 62 % LV stroke volume BP (ml) 40 mL LV stroke volume index BP 20.41 mL/m2 LV - Diastole MV pk E john 0.6 m/s MV pk A john 0.56 m/s E/A ratio 1.07 e' septal pk john 0.07 m/s e' lateral pk john 0.09 m/s Avg e' pk john 0.08 m/s E/e' septal ratio 8.56 E/e' lateral ratio 6.68 Avg E/e' ratio 7.62 LV - HCM AV LVOT peak gradient 6 mmHg Left Atrium LA ESV SP 4CH (MOD) 55 mL LA ESV SP 2CH (MOD) 65 mL LA ESV BP (MOD) index 32 mL/m2 Right Heart Measurements RV - 2D RV basal diam 4.23 cm RV mid diam 2.13 cm RV long diam 5.92 cm RV - Doppler TAPSE 2.6 cm RV S' 14.6 cm/s Right Atrium RA vol index 4CH (MOD) 20.41 mL/m2 RA area 4CH (MOD) 16.05 cm2 Great Vessels Aortic Root - End Diastolic Sinus 3.2 cm STJ 2.49 cm Ascending aorta 2.95 cm Doppler Measurements - Aortic Valve Stenosis LVOT diameter 1.97 cm LVOT area 3.05 cm2 LVOT peak john 1.27 m/s LVOT peak VTI 28.37 cm Stroke Volume 86 cm/mL Stroke volume index 44 Ao peak john 1.25 m/s Ao VTI 31.06 cm AV peak gradient 6 mmHG AV mean gradient 3 mmHg DI (VTI) 0.91 m/2 DI (Vmax) 1.02 FRANCISCO (continuity Vmax) 3.1 cm2 FRANCISCO index (continuity Vmax) 1.58 m/s FRANCISCO (continuity VTI) 2.78 cm2 FRANCISCO index (continuity VTI) 1.42 cm2/m2 LVOT stroke volume 86 cm3 LVOT stroke volume index 44.1 ml/m2 Doppler Measurements - Mitral Valve Stenosis MV pk E john 0.6 m/s MV pk A john 0.56 m/s E/A ratio 1.07 PISA-MS MV pk E john 0.6 m/s Doppler Measurements - Pulmonic Valve Stenosis PV PK JOHN 0.87 m/s PV peak gradient 3 mmHg PV mean gradient 2 mmHg RVOT peak john 0.7 m/s RVOT peak VTI 17.6 cm RVOT p (more content not included)... Normal [facility] EXTRA MICROon 07-27-2024 [facility] GLUCOSE POCon 07-27-2024 Glucose [Mass/Vol] 105 mg/dL High 70 - 99 mg/dL [facility] Interpretation and review of laboratory results Abnormal [facility] POC Sample Type CAPBL [facility] Test performed at address of the patient encounter. [facility] HIGH SENSITIVITY TROPONIN I - SINGLE ORDERon 07-27-2024 Interpretation and review of laboratory results Normal [facility] Troponin I.cardiac High sensitivity method [Mass/Vol] 4 ng/L NINF - 34 ng/L [facility] hs-Troponin I 4 ng/L Normal <[address] [facility] Comment on above: Order Comment: Acute Coronary Syndrome (ACS): Initial Evaluation and Management:[email or web address] [email or web address]%[email or web address] Performed By: #### REGINO HUSSEIN ANCA, BARRY #### [facility] (DEFAULT) [address] [place] [address] IONIZED CALCIUM, WHOLE BLOOD Ordered By: Ventura Cancino on 07-27-2024 Calcium.ionized (Bld) [Moles/Vol] 4.83 mg/dL 4.60 - 5.30 mg/dL [facility] Interpretation and review of laboratory results Normal [facility] IONIZED CALCIUM, WHOLE BLOOD on 07-27-2024 ICA 4.83 mg/dL Normal 4.60-5.[address] [facility] Comment on above: Performed By: #### I CA #### [facility] (DEFAULT) [address] [place] [address] MAGNESIUMon 07-27-2024 Magnesium [Mass/Vol] 1.9 mg/dL 1.6 - 2 .6 mg/dL [facility] Magnesium [Mass/Vol] 1.9 mg/dL Normal 1.6-2.[address] [facility] Comment on above: Performed By: #### REGINO HUSSEIN ANCA, BARRY #### [facility] (DEFAULT) [address] [place] [address] No Panel Informationon 07-27 Interpretation and review of laboratory results Normal [facility] PHOSPHATE, INORGANICon 07-27 Phosphate [Mass/Vol] 2.7 mg/dL 2.2 - 4 .6 mg/dL [facility] Phosphorous 2.7 mg/dL Normal 2.2-4.[address] [facility] Comment on above: Performed By: #### REGINO HUSSEIN ANCA, BARRY #### [facility] (DEFAULT) [address] [place] [address] URINALYSIS REFLEX TO CULTURE PERFORMABLEon 07-27-2024 Appearance (U) Clear Clear [facility] Bacteria LM Ql (Urine sed) ABSENT ABSENT [facility] Color (U) Yellow Yellow [facility] Epithelial cells.squamous LM Ql (Urine sed) 0-2/hpf 0-2/hpf, 3-5/hpf = 1+ [facility] Glucose Test strip (U) [Mass/Vol] Negative Negative [facility] Interpretation and review of laboratory results Abnormal [facility] Ketones (U) [Mass/Vol] Negative Negative [facility] Leukocyte esterase Test strip Ql (U) Trace Abnormal Negative [facility] Nitrite Ql (U) Negative Negative [facility] pH (U) 7.5 [pH] Abnormal 5.0 - 7.0 [facility] Protein (U) [Mass/Vol] Negative Negative [facility] RBC (U) [#/Vol] Negative Negative [facility] RBC LM.HPF (Urine sed) [#/Area] 0-2 [facility] Specific gravity (U) [Rel density] 1.007 1.001 - 1.035 [facility] Urobilinogen (U) [Mass/Vol] 0.2 E.U./dL 0.2 E.U/dL, 1.0 E.U/dL [facility] WBC LM.HPF (Urine sed) [#/Area] 0 - 5 [facility] Appearance (U) Clear Normal Clear [facility] Comment on above: Order Comment: For i ndwelling catheters, specimen collection is acceptable on catheter day 1 and 2 only. ? Performed By: #### U [id number] #### [facility] (DEFAULT) [address] [address] Bacteria ABSENT Normal ABSENT [facility] Comment on above: Order Comment: For i ndwelling catheters, specimen collection is acceptable on catheter day 1 and 2 only. ? Performed By: #### U [id number] #### [facility] (DEFAULT) [address] [address] Blood Urine Negative Normal Negative [facility] Comment on above: Order Comment: For i ndwelling catheters, specimen collection is acceptable on catheter day 1 and 2 only. ? Performed By: #### U [id number] #### [facility] (DEFAULT) [address] [place] [address] Color (U) Yellow Normal Yellow [facility] Comment on above: Order Comment: For i ndwelling catheters, specimen collection is acceptable on catheter day 1 and 2 only. ? Performed By: #### U [id number] #### [facility] (DEFAULT) [address] [place] [address] Glucose Ql (U) Negative Normal Negative [facility] Comment on above: Order Comment: For i ndwelling catheters, specimen collection is acceptable on catheter day 1 and 2 only. ? Performed By: #### U [id number] #### [facility] (DEFAULT) [address] [place] [address] Ketones Ql (U) Negative Normal Negative [facility] Comment on above: Order Comment: For i ndwelling catheters, specimen collection is acceptable on catheter day 1 and 2 only. ? Performed By: #### U [id number] #### [facility] (DEFAULT) [address] [place] [address] Leukocyte esterase Test strip Ql (U) Trace Abnormal Negative [facility] Comment on above: Order Comment: For i ndwelling catheters, specimen collection is acceptable on catheter day 1 and 2 only. ? Performed By: #### U [id number] #### [facility] (DEFAULT) [address] [place] [address] Nitrites Urine Negative Normal Negative [facility] Comment on above: Order Comment: For i ndwelling catheters, specimen collection is acceptable on catheter day 1 and 2 only. ? Performed By: #### U [id number] #### [facility] (DEFAULT) [address] [place] [address] pH (U) 7.5 [pH] Abnormal 5.0-7.[address] [facility] Comment on above: Order Comment: For i ndwelling catheters, specimen collection is acceptable on catheter day 1 and 2 only. ? Performed By: #### U [id number] #### [facility] (DEFAULT) [address] [address] Protein Urine Negative Normal Negative [facility] Comment on above: Order Comment: For i ndwelling catheters, specimen collection is acceptable on catheter day 1 and 2 only. ? Performed By: #### U [id number] #### [facility] (DEFAULT) [address] [address] RBC Urine 0-2 Normal 0-[address] [facility] Comment on above: Order Comment: For i ndwelling catheters, specimen collection is acceptable on catheter day 1 and 2 only. ? Performed By: #### U [id number] #### [facility] (DEFAULT) [address] [address] Specific [place] Urine 1.007 Normal 1.001-1.035 [facility] Comment on above: Order Comment: For i ndwelling catheters, specimen collection is acceptable on catheter day 1 and 2 only. ? Performed By: #### U [id number] #### [facility] (DEFAULT) [address] [address] Squamous/Epithelial Cells, Urine 0-2/hpf Normal 0-2/hpf, 3-5/hpf = 1+ [facility] Comment on above: Order Comment: For i ndwelling catheters, specimen collection is acceptable on catheter day 1 and 2 only. ? Performed By: #### U [id number] #### [facility] (DEFAULT) [address] [address] Urobilinogen Urine 0.2 E.U./dL Normal 0.2 E.U/d L, 1.0 E.U/dL [facility] Comment on above: Order Comment: For i ndwelling catheters, specimen collection is acceptable on catheter day 1 and 2 only. ? Performed By: #### U [id number] #### [facility] (DEFAULT) [address] [address] WBC Urine 0 - 5 Normal 0 - [address] [facility] Comment on above: Order Comment: For i ndwelling catheters, specimen collection is acceptable on catheter day 1 and 2 only. ? Performed By: #### U [id number] #### [facility] ([facility]) [address] [place] [address] Urine Cultureon 07-27-2024 [facility] Mixed Gram Pos Gram Neg Org Juliette Count 1000-10,000 MIXC Mixed contaminants. Submit a new specimen if indicated. Normal [facility] Comment on above: Performed By: #### M 100.2200 ####[facility] [address] [place], [address] Basic Metabolic Profile (BMP )on 07-26-2024 BUN/CRE 16.5 RATIO Normal 10-20 [facility] Comment on above: Performed By: #### L 500.2500, L100.0100 ####[facility] [address] [place], [address] CA,Total 9.1 mg/dL Normal 8.5-10.1 [facility] Comment on above: Performed By: #### L 500.2500, L100.0100 ####[facility] [address] [place], [address] Chloride [Moles/Vol] 102 mmol/L Normal 98-107 [facility] Comment on above: Performed By: #### L 500.2500, L100.0100 ####[facility] [address] [place], [address] CO2 [Moles/Vol] 24.0 mmol/L Normal 21.0-32.0 [facility] Comment on above: Performed By: #### L 500.2500, L100.0100 ####[facility] [address] [place], [address] Creatinine [Mass/Vol] 0.67 mg/dL Normal 0.55-1.02 [facility] Comment on above: Result Comment: The validity of the calculated GFR GFRAA in patients over 70 years has not been determined. Clinical correlation is essential. Performed By: #### L 500.2500, L100.0100 ####[facility] [address] [place], [address] ECRCL 75.02 ml/min Normal [facility] Comment on above: Performed By: #### L 500.2500, L100.0100 ####[facility] [address] [place], [address] EST GFR - AA 113 mL/min Normal >60 [facility] Comment on above: Result Comment: Afri can Cymraes GFR Calc Performed By: #### L 500.2500, L100.0100 ####[facility] [address] [place], [address] GAP 9 Normal 5-15 [facility] Comment on above: Performed By: #### L 500.2500, L100.0100 ####[facility] [address] [place], [address] GFR/1.73 sq M.predicted among non-blacks MDRD (S/P/Bld) [Vol rate/Area] 94 mL/min/{1.73_m2} Normal >60 [facility] Comment on above: Result Comment: Non- GFR Calc Performed By: #### L 500.2500, L100.0100 ####[facility] [address] [place], [address] Glucose [Mass/Vol] 108 mg/dL High 74-106 [facility] Comment on above: Result Comment: Fast ing Glucose result from 100 to 125 mg/dL suggests IMPAIRED HOMEOSTASIS per A.D.A. criteria. Performed By: #### L 500.2500, L100.0100 ####[facility] [address] [place], [address] Potassium [Moles/Vol] 3.7 mmol/L Normal 3.5-5.1 [facility] Comment on above: Performed By: #### L 500.2500, L100.0100 ####[facility] [address] [place], [address] Sodium [Moles/Vol] 135 mmol/L Low 136-145 [facility] Comment on above: Performed By: #### L 500.2500, L100.0100 ####[facility] [address] [place], [address] Urea nitrogen [Mass/Vol] 11 mg/dL Normal 7-18 [facility] Comment on above: Performed By: #### L 500.2500, L100.0100 ####[facility] [address] [place], [address] Brain without Contraston Brain without Contrast [facility] Imaging Services [address] [place] [address] Brain without Contrast MR#: [id number] Acct: [id number] Name: ILEANA LEONE Rep #: [id number] : 1955 F 68 From: Jairo Croft MD PCP: KRISTIAN Lockwood Status: ADM [place] Study: Brain without Contrast Date of Exam: 07/26/24 Exam# [id number] Ordering Dr: Jairo Pack MD EXAM: BRAIN WITHOUT CONTRAST CLINICAL HISTORY: Syncope COMPARISON: Correlation with CT head dated 10/09/2023. TECHNIQUE: PROCEDURE: Multiplanar sequences of the brain were obtained on a 1.5 Kay MRI system, including T1, T2, FLAIR, DWI, and ADC. No intravenous contrast was administered. IV CONTRAST: FINDINGS: MRI BRAIN: No intraparenchymal hemorrhage is evident. No focus of restricted diffusion is identified to suggest acute or early subacute ischemia. 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 There is increased T2 and FLAIR weighted signal about the aneurysm. The basal cisterns are visualized. The ventricles and cortical sulci are in proportion and consistent with the patient's age. There is no signal abnormality in the barrios or white matter. The midline structures demonstrate normal contours. The craniocervical junction is unremarkable. The flow voids of the large intracranial vessels are normal. The calvarium is unremarkable. The paranasal sinuses and mastoid air cells are clear. MRI/Brain without Contrast IMPRESSION: 1. No MR evidence of acute ischemia. 2. 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 [facility] CC: Dr. Jairo Pack MD; KRISTIAN Lockwood Roving Technician: Signed Normal [facility] Brain/Head without Contrasto n 07-26-2024 Brain/Head without Contrast [facility] Imaging Services [address] [place], [place] [id number] Brain/Head without Contrast MR#: [id number] Acct: [id number] Name: ILEANA LEONE Rep #: [id number] : 1955 F 68 From: Jairo Croft MD PCP: KRISTIAN Lockwood Status: ADM [place] Study: Brain/Head without Contrast Date of Exam: 07/09 01/30 Exam# [id number] Ordering Dr: Jack Travis DO EXAM: BRAIN/HEAD WITHOUT CONTRAST CLINICAL HISTORY: Re-evaluate brain aneurysm COMPARISON: 10/09/2023. TECHNIQUE: Noncontrast images of the head with multiplanar reconstructions. Dose reduction techniques were used including intermediate exposure control (AEC),iterative reconstruction technique, and/or mA and/or KV dose adjustments based on patient's size. FINDINGS: CT HEAD FINDINGS: Coil is noted within the right supraclinoid region causing streak artifact and limiting evaluation. Within this limitation, lower hyperdensity is noted within the right supraclinoid region measuring 5.1 x 3.9 x 5.4 cm. There is no significant midline shift or herniation.. No hydrocephalus. Age- appropriate cerebral volume and white matter. Visualized paranasal sinuses and mastoid air cells are clear. The calvarium is grossly intact. CT/Brain/Head without Contrast IMPRESSION: 1. Interval increase in size of the right supraclinoid aneurysm with associated hemorrhage. Coil artifact is again noted. No evidence of herniation or midline shift. Findings communicated to Carmina Denney RN on 07/26/24 at 1637 hours. Reading Location: [facility] CC: Dr. Jack Travis DO; KRISTIAN Lockwood Roving Technician: Signed Normal [facility] CARDIAC RHYTHMon 07-26-2024 [facility] CBC W/Diff, Automatedon 07-09 Absolute Lymph 1.34 X10 3/uL Normal 0.83-4.51 [facility] Comment on above: Performed By: #### L 500.2500, L100.0100 ####[facility] [address] [place], [address] Absolute Neut 5.5 X10 3/uL Normal 2.0-7.7 [facility] Comment on above: Performed By: #### L 500.2500, L100.0100 ####[facility] [address] [place], [address] Basophils/100 WBC (Bld) 0.4 % Normal 0-1 [facility] Comment on above: Performed By: #### L 500.2500, L100.0100 ####[facility] [address] [place], [address] Eosinophils/100 WBC (Bld) 1.3 % Normal 0-5 [facility] Comment on above: Performed By: #### L 500.2500, L100.0100 ####[facility] [address] [place], [address] Erythrocyte distribution width (RBC) [Ratio] 13.3 % Normal 11.6-14.6 [facility] Comment on above: Performed By: #### L 500.2500, L100.0100 ####[facility] [address] [place], [address] Hematocrit (Bld) [Volume fraction] 41.8 % Normal 37-47 [facility] Comment on above: Performed By: #### L 500.2500, L100.0100 ####[facility] [address] [place], [address] Hemoglobin (Bld) [Mass/Vol] 14.1 g/dL Normal 12.0-15.0 [facility] Comment on above: Performed By: #### L 500.2500, L100.0100 ####[facility] [address] [place], [address] IG% 0.400 Normal 0.0-0.9 [facility] Comment on above: Result Comment: IG% - Immature Granulocytes (promyelocytes, myelocytes and metamyelocytes) > 1% indicates that a LEFT SHIFT is Present. Performed By: #### L 500.2500, L100.0100 ####[facility] [address] [place], [address] Lymphocytes/100 WBC (Bld) 17.7 % Low 19-41 [facility] Comment on above: Performed By: #### L 500.2500, L100.0100 ####[facility] [address] [place], [address] MCH (RBC) [Entitic mass] 28.7 pg Normal 27.0-32.0 [facility] Comment on above: Performed By: #### L 500.2500, L100.0100 ####[facility] [address] [place], [address] MCHC (RBC) [Mass/Vol] 33.7 g/dL Normal 32-36 [facility] Comment on above: Performed By: #### L 500.2500, L100.0100 ####[facility] [address] [place], [address] MCV (RBC) [Entitic vol] 85.0 fL Normal 81-99 [facility] Comment on above: Performed By: #### L 500.2500, L100.0100 ####[facility] [address] [place], [address] Monocytes/100 WBC (Bld) 7.8 % Normal 0-10 [facility] Comment on above: Performed By: #### L 500.2500, L100.0100 ####[facility] [address] [place], [address] Neutrophils/100 WBC (Bld) 72.4 % High 47-70 [facility] Comment on above: Performed By: #### L 500.2500, L100.0100 ####[facility] [address] [place], [address] Nucleated RBC (Bld) [#/Vol] 0 10*3/uL Normal 0-5 [facility] Comment on above: Performed By: #### L 500.2500, L100.0100 ####[facility] [address] [place], [address] Platelet mean volume (Bld) [Entitic vol] 10.6 fL Normal 6.2-12.0 [facility] Comment on above: Performed By: #### L 500.2500, L100.0100 ####[facility] [address] [place], [address] Platelets (Bld) [#/Vol] 211 10*3/uL Normal 150-450 [facility] Comment on above: Performed By: #### L 500.2500, L100.0100 ####[facility] [address] [place], [address] RBC (Bld) [#/Vol] 4.92 10*6/uL Normal 4.2-5.4 [facility] Comment on above: Performed By: #### L 500.2500, L100.0100 ####[facility] [address] [place], [address] RDW SD 41.7 fl Normal 35.1-43.9 [facility] Comment on above: Performed By: #### L 500.2500, L100.0100 ####[facility] [address] [place], [address] WBC (Bld) [#/Vol] 7.6 10*3/uL Normal 4.4-11.0 [facility] Comment on above: Performed By: #### L 500.2500, L100.0100 ####[facility] [address] [place], [address] CT ANGIO BRAINon 07-26-2024 CT ANGIO BRAIN EXAM: CT ANGIO BRAIN, 07/21/2024 10:01 AM CLINICAL INDICATIONS: 68 years Female brain aneurysm RELEVANT CLINICAL HISTORY: I67.1:Cerebral aneurysm, nonruptured COMPARISON: No priors available for comparison. TECHNIQUE: A series of transaxial multislice computerized tomographic images are obtained with helical technique from below skull base through the vertex following bolus intravenous administration of nonionic contrast. Axial thin section source images, as well as sagittal and coronal thin section reformats, were provided at the scanner. Additional multiplanar and 3D reconstructions were provided. CONTRAST: iohexol (OMNIPAQUE) 350 MG/ML injection 1-171 mL; Route of Administration: Intravenous; Dose: 100 mL. FINDINGS: INTERNAL CAROTID ARTERIES: Flow diverting stent is noted within the right internal carotid artery and involving the cavernous and supraclinoid internal carotid artery. Was placed for treatment of a right supraclinoid internal carotid artery aneurysm. Aneurysm is a giant aneurysm much of the aneurysm thrombosed. Coils are noted within the aneurysm. There are couple areas of filling of the aneurysm. The largest is noted inferiorly adjacent to the pipeline stent measuring approximately 8 x 10 mm on image 124 of series 14 which is similar to the previous exam. There is also a component more superiorly and posterior medially which measures 5 x 11 mm on image 98 of series 4 which appears to be new. A previously noted opacifying component immediately posterior to the coil mass is no longer seen. There are smaller areas of opacification noted superior to the coil mass best seen on image 95 of series 4 and is high as image 90 of series 4 which were not clearly present on the prior exam. ANTERIOR CEREBRAL ARTERIES: The right anterior cerebral artery is not well seen. The left is displaced laterally by the thrombosed component of the aneurysm.. MIDDLE CEREBRAL ARTERIES: Patent and normal in caliber. POSTERIOR CEREBRAL ARTERIES: Patent and normal in caliber. VERTEBRAL ARTERIES: Patent and normal in caliber. BASILAR ARTERY: Patent. No significant stenosis. IMPRESSION: The patient is status post to treatment of a giant aneurysm with a flow diverting stent and a few coils within the aneurysm. Much of the aneurysm is thrombosed. There are components that are not. At least one of those is similar to the previous exam. Others appear slightly different than on the previous exam.. Normal [facility] Discharge Instructionon 07-09 Discharge Instruction [facility] Medical Records Department [address] [place] [address] Instructions for Home/Discharge Instructions 07/26/24 1648 MR#: [id number] Acct: [id number] Name: ILEANA LEONE Rep #: [id number] : 1955 68 From: Jack Travis DO PCP: KRISTIAN Lockwood Status:ADM [place] Discharge Instructions Diet Discharge Diet: No restrictions DC O2, CPAP, BIPAP needs Home O2 Discharge instructions: No Follow Up Care Test Results: Test results from this visit will be discussed in further detail at your follow-up appointment, if applicable. Discharge Plan Admission Admit Date/Time: 07/25/24 20:01 Primary Reason for Your Visit: Syncopal episode Attending Provider: Jack Travis Primary Care Provider: Ganga Moy Consulting Providers: Jairo Pack; Abel Day; Harriett Conte; Roselia Muñoz; Katy Sanders; Louise,Jessica; Haja,Hever; Russell,Luisa; David Valerio; Judah Montero; Ze Julio; Jadyn Combs; Román Ramirez; Lexis Gonzales; Terar Young; Mounika Siddiqui; Adrian Manrique; Dave Deutsch; Tavo Mathias; Pricila Vidal; Patricia Bynum; Haylee Shukla; Jose G Olsen; Eddie Del Angel; TAO NAIK; Nickolas Vaca; Cristy Garcia Discharge Orders/Prescriptions Prescriptions: Continued Adult Probiotic 3 billion cell capsule 3,000 mmu cells PO DAILY latanoprost 0.005 % drops 1 drp OPHTHALMIC DAILY simvastatin 10 mg tablet 10 mg PO QHS Patient Comments: TAKE ONE TABLET WITH EVENING MEAL OR AT BEDTIME calcium carbonate-vitamin D2 500-125 mg-unit tablet 1 tab PO TID Adrenal 200 mg PO DAILY multivitamin 1 EACH tablet 1 ea PO DAILY brimonidine-timolol 0.2-0.5 % drops 1 drp ophthalmic (eye) Q12H Patient Comments: INSTILL 1 DROP INTO BOTH EYES TWICE A DAY dorzolamide-timolol 22.3-6.8 mg/mL drops 1 drp ophthalmic (eye) BID metoprolol succinate 50 mg tablet extended release 24 hr 25 mg PO DAILY venlafaxine 37.5 mg capsule,extended release 24hr 37.5 mg PO QHS aspirin 325 mg tablet,delayed release (DR/EC) 325 mg PO DAILY flecainide 50 mg tablet See Rx Instructions .ROUTE .COMPLEX Qty: 180 3RF Dose Instruction: TAKE 1 TAB BY MOUTH EVERY 12 HOURS Rx Instructions: TAKE 1 TAB BY MOUTH EVERY 12 HOURS Referrals / Follow Up: Ganga Moy PA [Primary Care Provider] - Disposition Disposition (needs filled in before D/C Order can be placed): [facility] 07/26/24 1717 Jack arleen GIVENS CC: Katy Sanders; Lexis Gonzales; Adrian Manrique; Jessica Gil MD; Roselia Muñoz MD; Abel Day MD; Haylee Shukla MD; Dr. Apolinar Naik MD; Dr. Harriett Conte MD; Dr. Hever Smyth MD; Dr. Luisa Wells MD; Dr. Judah Montero MD; Dr. David Valerio MD; Dr. Ze Julio MD; Dr. Rmoán Ramirez DO; Dr. Mounika Siddiqui MD; Dr. Terra Yuong MD; Dr. Jairo Pack MD; Dr. Dave Deutsch MD; Dr. Tavo Mathias MD; Dr. Pricila Vidal MD; Eddie Del Angel MD; Jose G Olsen MD; Jadyn Combs DO; KRISTIAN Lockwood; Nickolas Vaca MD; Cristy Garcia DO; Patricia Bynum MD Signed Normal [facility] MR/CON.PCM.NEon 07-26-2024 MR/CON.PCM.NE [facility] Medical Records Department [address] [place] [address] Consultation - Neurology 07/26/24 1342 MR#: [id number] Acct: [id number] Name: ILEANA LEONE Rep #: [id number] : 1955 68 From: Jessica Gil MD PCP: KRISTIAN Lockwood Status:DIS [place] Location: [address] Assessment and Plan: Neuro Assessment/Plan ILEANA LEONE is a 68 F with a 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 On evaluation, syncope appears to be unlikely related to seizure or other event as was short lived and recovery quick. However patient has had progressive 2 month worsening of abulia, anhedonia, and MRI Brain with worsening aneurysm margins with edema and spread across to the L temoporal lobe now. Concern that this enlargening of the aneurysm is associated with these new symptoms. Syncope could be related to some increased ICP from the compression. Unfortinately, unclear how acute this growth is as there has been almost a year between MRIs (last one in October of last year). Would recommend repeating a CTH and comparing to recent CTH to assess how acute this change is. Plan: - CTH to evaluate and compare to prior CTH as assess if how acute the growth has been - agree with routine EEG If abnormal, consider transfer to [facility] to be evaluated by Neurosurgery. I personally attended this patient and spent a total time of 45 minutes evaluating this patient including clinical assessment, review of chart, medical history imaging, and determining appropriate treatment and workup. 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 neurology), presents to the emergency room with chief complaint of syncopal episode. For the past 5 days or so she has had increased constipation and was straining to have a bowel movement and when she stood up to wash her hands she felt like she was going to pass out and collapsed to the ground. She was weak and more confused for the next 2 or so minutes. She denies loss of consciousness. Patient denies trauma to the head upon falling and denies any focal neurologic weakness or headache at present time. She denies any fevers or chills, nausea or vomiting. Recently she had been informed that her aneurysm had decreased in size and that she was scheduled to have an outpatient MRI in the next 3 to 4 weeks. She was also recently started on venlafaxine to treat depression approximately 1 week ago. In the emergency room she was diagnosed with urinary tract infection and started on Rocephin and admission for observation due to recent change in mental status was requested. Neurologic History: Pt states she was brushing her teeth and felt like she could not stand there and they got a chair and she sat in chair for a bit. Did not pass out per her. Never had a sensation like this. Did not have room spinning sensation, did not have numbness or tingling, no focal weakness. Currently feels back to normal. she's not sure how long it took her to fell back to normal. Currently does feel like she has a headache but has them normally. She cannot remember when her last headache was. She is very reluctant to talk. She denies a history of seizures. after talking with her , she [facility] Medical History (Updated 08/03/24 @ 00:02 by Background Claudia) A-fib Glaucoma Hyperlipidemia Obesity GERD (gastroesophageal reflux disease) Essential (primary) hypertension Paroxysmal atrial fibrillation Home Medications ???Medication ???Instructions ???Recorded ???Last Taken ???Type Adrenal 200 mg PO DAILY supplement 6 07/08/16 History multivitamin 1 ea PO DAILY 04/30/16 07/08/16 Hi story lactobacillus combination no.8 3 3,000 mmu cells PO DAILY 09/22/18 Unknown History billion cell capsule (Adult Probiotic) calcium carb-ergocalciferol (vit 1 tab PO TID 09/19/19 Unknown Hist ory D2) 500 mg-125 unit tablet latanoprost 0.005 % eye drops 1 drp ophthalmic (eye) DAILY 09/18 Unknown History simvastatin 10 mg tablet 10 mg PO QHS 09/19/19 Unknown Hist ory brimonidine 0.2 %-timolol 0.5 % 1 drp ophthalmic (eye) Q12H Unknown History eye drops dorzolamide 22.3 mg-timolol 6.8 1 drp ophthalmic (eye) BID 4 Unknown History mg/mL eye drops metoprolol succinate 50 mg 25 mg PO DAILY 10/09/23 Unknown Hi story tablet,extended release 24 hr flecainide 50 mg tablet See Rx Instructions .Route 4 Unknown Rx .COMPLEX #180 tabs aspirin 325 mg tablet,delayed 325 mg PO DAILY 07/25/24 U (more content not included)... Normal [facility] Magnesiumon 07-26-2024 Magnesium [Mass/Vol] 2.1 mg/dL Normal 1.6-2.6 [facility] Comment on above: Performed By: #### L 501.5200 ####[facility] [address] [place], [address] Basic Metabolic Profile (BMP )on 07-25-2024 BUN/CRE 16.7 RATIO Normal 10-20 [facility] Comment on above: Performed By: #### L 100.0100, L500.2500 #### [facility] [address] [place], [address] CA,Total 9.5 mg/dL Normal 8.5-10.1 [facility] Comment on above: Performed By: #### L 100.0100, L500.2500 #### [facility] [address] [place], [address] Chloride [Moles/Vol] 103 mmol/L Normal 98-107 [facility] Comment on above: Performed By: #### L 100.0100, L500.2500 #### [facility] [address] [place], [address] CO2 [Moles/Vol] 25.0 mmol/L Normal 21.0-32.0 [facility] Comment on above: Performed By: #### L 100.0100, L500.2500 #### [facility] [address] [place], [address] Creatinine [Mass/Vol] 0.84 mg/dL Normal 0.55-1.02 [facility] Comment on above: Result Comment: The validity of the calculated GFR GFRAA in patients over 70 years has not been determined. Clinical correlation is essential. Performed By: #### L 100.0100, L500.2500 #### [facility] [address] [place], [address] ECRCL 71.74 ml/min Normal [facility] Comment on above: Performed By: #### L 100.0100, L500.2500 #### [facility] [address] [place], [address] EST GFR - AA 87 mL/min Normal >60 [facility] Comment on above: Result Comment: Afri can Cymraes GFR Calc Performed By: #### L 100.0100, L500.2500 #### [facility] [address] [place], [address] GAP 7 Normal 5-15 [facility] Comment on above: Performed By: #### L 100.0100, L500.2500 #### [facility] [address] [place], [address] GFR/1.73 sq M.predicted among non-blacks MDRD (S/P/Bld) [Vol rate/Area] 72 mL/min/{1.73_m2} Normal >60 [facility] Comment on above: Result Comment: Non- GFR Calc Performed By: #### L 100.0100, L500.2500 #### [facility] [address] [place], [address] Glucose [Mass/Vol] 101 mg/dL Normal 74-106 [facility] Comment on above: Result Comment: Fast ing Glucose result from 100 to 125 mg/dL suggests IMPAIRED HOMEOSTASIS per A.D.A. criteria. Performed By: #### L 100.0100, L500.2500 #### [facility] [address] [place], [address] Potassium [Moles/Vol] 4.0 mmol/L Normal 3.5-5.1 [facility] Comment on above: Performed By: #### L 100.0100, L500.2500 #### [facility] [address] [place], [address] Sodium [Moles/Vol] 135 mmol/L Low 136-145 [facility] Comment on above: Performed By: #### L 100.0100, L500.2500 #### [facility] [address] [place], [address] Urea nitrogen [Mass/Vol] 14 mg/dL Normal 7-18 [facility] Comment on above: Performed By: #### L 100.0100, L500.2500 #### [facility] [address] [place], [address] CBC W/Diff, Automatedon 07-09 Absolute Lymph 1.28 X10 3/uL Normal 0.83-4.51 [facility] Comment on above: Performed By: #### L 100.0100, L500.2500 #### [facility] [address] [place], [address] Absolute Neut 5.5 X10 3/uL Normal 2.0-7.7 [facility] Comment on above: Performed By: #### L 100.0100, L500.2500 #### [facility] [address] [place], [address] Basophils/100 WBC (Bld) 0.8 % Normal 0-1 [facility] Comment on above: Performed By: #### L 100.0100, L500.2500 #### [facility] [address] [place], [address] Eosinophils/100 WBC (Bld) 1.0 % Normal 0-5 [facility] Comment on above: Performed By: #### L 100.0100, L500.2500 #### [facility] [address] [place], [address] Erythrocyte distribution width (RBC) [Ratio] 13.7 % Normal 11.6-14.6 [facility] Comment on above: Performed By: #### L 100.0100, L500.2500 #### [facility] [address] [place], [address] Hematocrit (Bld) [Volume fraction] 42.4 % Normal 37-47 [facility] Comment on above: Performed By: #### L 100.0100, L500.2500 #### [facility] [address] [place], [address] Hemoglobin (Bld) [Mass/Vol] 14.0 g/dL Normal 12.0-15.0 [facility] Comment on above: Performed By: #### L 100.0100, L500.2500 #### [facility] [address] [place], [address] IG% 0.400 Normal 0.0-0.9 [facility] Comment on above: Result Comment: IG% - Immature Granulocytes (promyelocytes, myelocytes and metamyelocytes) > 1% indicates that a LEFT SHIFT is Present. Performed By: #### L 100.0100, L500.2500 #### [facility] [address] [place], [address] Lymphocytes/100 WBC (Bld) 16.7 % Low 19-41 [facility] Comment on above: Performed By: #### L 100.0100, L500.2500 #### [facility] [address] [place], [address] MCH (RBC) [Entitic mass] 28.9 pg Normal 27.0-32.0 [facility] Comment on above: Performed By: #### L 100.0100, L500.2500 #### [facility] [address] [place], [address] MCHC (RBC) [Mass/Vol] 33.0 g/dL Normal 32-36 [facility] Comment on above: Performed By: #### L 100.0100, L500.2500 #### [facility] [address] [place], [address] MCV (RBC) [Entitic vol] 87.4 fL Normal 81-99 [facility] Comment on above: Performed By: #### L 100.0100, L500.2500 #### [facility] [address] [place], [address] Monocytes/100 WBC (Bld) 9.2 % Normal 0-10 [facility] Comment on above: Performed By: #### L 100.0100, L500.2500 #### [facility] [address] [place], [address] Neutrophils/100 WBC (Bld) 71.9 % High 47-70 [facility] Comment on above: Performed By: #### L 100.0100, L500.2500 #### [facility] [address] [place], [address] Nucleated RBC (Bld) [#/Vol] 0 10*3/uL Normal 0-5 [facility] Comment on above: Performed By: #### L 100.0100, L500.2500 #### [facility] [address] [place], [address] Platelet mean volume (Bld) [Entitic vol] 10.1 fL Normal 6.2-12.0 [facility] Comment on above: Performed By: #### L 100.0100, L500.2500 #### [facility] [address] [place], [address] Platelets (Bld) [#/Vol] 207 10*3/uL Normal 150-450 [facility] Comment on above: Performed By: #### L 100.0100, L500.2500 #### [facility] [address] [place], [address] RBC (Bld) [#/Vol] 4.85 10*6/uL Normal 4.2-5.4 [facility] Comment on above: Performed By: #### L 100.0100, L500.2500 #### [facility] [address] [place], [address] RDW SD 44.0 fl High 35.1-43.9 [facility] Comment on above: Performed By: #### L 100.0100, L500.2500 #### [facility] [address] [place], [address] WBC (Bld) [#/Vol] 7.7 10*3/uL Normal 4.4-11.0 [facility] Comment on above: Performed By: #### L 100.0100, L500.2500 #### [facility] [address] [place], [address] Chest PA and Lateralon 07-25 Chest PA and Lateral [facility] Imaging Services [address] [place] [address] Chest PA and Lateral MR#: [id number] Acct: [id number] Name: ILEANA LEONE Rep #: [id number] : 1955 F 68 From: Jairo Croft MD PCP: KRISTIAN Lockwood Status: REG ER Study: Chest PA and Lateral Date of Exam: 07/25/24 Exam# [id number] Ordering Dr: Shani Herrera DO PROCEDURE: CHEST PA AND LATERAL REASON FOR EXAM: Near syncope TECHNIQUE: Two views of the chest. COMPARISON: None. FINDINGS: The heart size is normal. There are atherosclerotic calcifications of the thoracic aorta. The lungs are clear. The bones are unremarkable. RAD/Chest PA and Lateral IMPRESSION: No radiographic evidence of acute cardiopulmonary disease. Reading Location: [facility] CC: Dr. Shani Herrera DO; KRISTIAN Lockwood Roving Technician: Signed Normal [facility] Emergency Department Summary on 07-25-2024 Emergency Department Summary [facility] Medical Records Department [address] [place] [address] Emergency Department Summary 07/25/24 MR#: [id number] Acct: [id number] Name: ILEANA LEONE Rep #: [id number] : 1955 68 From: Shani Herrera DO PCP: KRISTIAN Lockwood Status:ADM [place] Location: [place] [address] HPI History of Present Illness Chief Complaint: Syncope Informant: patient and spouse/S.O. Narrative Narrative: Patient is a 68-year-old female with history of proximal atrial fibrillation (no longer on anticoagulation), hypertension and status post embolization of the cerebral aneurysm with subsequent blindness (this is followed through [facility]). She is presenting today with episode of syncope. notes that she has been dealing with constipation lately. She was straining trying to have bowel movements and when she got up to wash her hand she then fell like she was going to pass out and collapsed to the ground. She was very weak for a minute or 2. She did not actually lose consciousness. Other son who is an EMT checked her blood pressure and initiate was low but then it went to 121/70 (spouse states she runs quite high). She stood up it dropped significantly. Patient denies injuring her self or hitting her head. She denies any focal weakness. Denies any headache. She recently was taken off of her Plavix. Denies any recent fever chills or flulike symptoms. Patient was started on a new antidepression medication about a week ago she has been having issues with sleep regulation and increased daytime somnolence. Chart review shows this was venlafaxine. [facility] Medical History (Updated 07/26/24 @ 01:[address] Shani Herrera, DO) A-fib Glaucoma Hyperlipidemia Obesity GERD (gastroesophageal reflux disease) Essential (primary) hypertension Paroxysmal atrial fibrillation Home Medications ???Medication ???Instructions ???Recorded ???Last Taken ???Type Adrenal 200 mg PO DAILY supplement 6 07/08/16 History multivitamin 1 ea PO DAILY 04/30/16 07/08/16 Hi story lactobacillus combination no.8 3 3,000 mmu cells PO DAILY 09/22/18 Unknown History billion cell capsule (Adult Probiotic) calcium carb-ergocalciferol (vit 1 tab PO TID 09/19/19 Unknown Hist ory D2) 500 mg-125 unit tablet latanoprost 0.005 % eye drops 1 drp ophthalmic (eye) DAILY 09/18 Unknown History simvastatin 10 mg tablet 10 mg PO QHS 09/19/19 Unknown Hist ory brimonidine 0.2 %-timolol 0.5 % 1 drp ophthalmic (eye) Q12H Unknown History eye drops dorzolamide 22.3 mg-timolol 6.8 1 drp ophthalmic (eye) BID 4 Unknown History mg/mL eye drops metoprolol succinate 50 mg 25 mg PO DAILY 10/09/23 Unknown Hi story tablet,extended release 24 hr flecainide 50 mg tablet See Rx Instructions .Route 4 Unknown Rx .COMPLEX #180 tabs aspirin 325 mg tablet,delayed 325 mg PO DAILY 07/25/24 Unknown H istory release venlafaxine 37.5 mg 37.5 mg PO QHS 07/25/24 Unknown Hi story capsule,extended release 24 hr Allergy/AdvReac Type Severity Reaction Status Date / Time lisinopril Allergy Unknown Verified 10/09/23 09:04 silver sulfadiazine (From Allergy Unknown Verified 10/09/23 09:04 Silvadene) Family History Father Hypertension Diabetes Mother Hypertension Cancer lung cancer Brother Hypertension Surgical History (Updated 07/26/24 @ 01:[address] Shani Herrera, ) S/P coil embolization of cerebral aneurysm History of left heart catheterization (05/05/16) History of cholecystectomy Social History Smoking Status: Former smoker alcohol intake: never substance use type: does not use caffeine: Yes Type: coffee Number of servings: 1 eating out: 1-3 times/week what type of physical activity do you participate in: other details: fit board frequency: daily duration: 30-45 minutes/day seatbelt use: always do you feel safe at home: Yes ROS ROS ED Constitutional Constitutional ED: Denies chills or fever(s) Eyes Eyes: Reports other Details: Visual deficits???chronic from cerebral aneurysm ENT ENT ED: Denies rhinorrhea or sore throat Cardiovascular Cardiovascular: Denies chest pain or palpitations Respiratory/Chest Respiratory/Chest: Denies cough or dyspnea Gastrointestinal Gastrointestinal: Reports constipation; Denies nausea or vomiting Musculoskeletal Musculoskeletal: Denies arthralgias or myalgias Integumentary Denies rash Neurologic Neurologic: Reports weakness; Denies headache(s) or paresthesias Hematologic/Lymphati c Hematologic/Lymphati c: Denies easy bleeding or easy bruising EXAM Physical Exam Const Vital Signs: 07/25/24 14:10 07/25/24 15:27 07/25/24 1 (more content not included)... Normal [facility] M100.678on 07-25-2024 M100.678 Pending SARS-CoV-2 (COVID 19) Negative INFLUENZA A Negative INFLUENZA B Negative RSV PCR Negative Normal [facility] Comment on above: Performed By: #### M 100.678 #### [facility] [address] [facility] [address] [facility] [address] Urinalysis, Completeon 07-25 RBC 5-10 SEEN Normal 0-5 [facility] Comment on above: Order Comment: CLEAN CATCH Performed By: #### L 400.0001 ####[facility] [address] [facility] [address] WBC 10-25 SEEN Normal 0-5 [facility] Comment on above: Order Comment: CLEAN CATCH Performed By: #### L 400.0001 ####[facility] [address] [place], [address] AMORPHOUS 1+ Normal [facility] Comment on above: Order Comment: CLEAN CATCH Performed By: #### L 400.0001 ####[facility] [address] [place], [address] BACTERIA 1+ /hpf Normal None Seen [facility] Comment on above: Order Comment: CLEAN CATCH Performed By: #### L 400.0001 ####[facility] [address] [place], [address] EPI,SQUAMOUS 0-5 SEEN Normal 5-10 [facility] Comment on above: Order Comment: CLEAN CATCH Performed By: #### L 400.0001 ####[facility] [address] [place], [address] Mucus Ql (Urine sed) 0 SEEN Normal [facility] Comment on above: Order Comment: CLEAN CATCH Performed By: #### L 400.0001 ####[facility] [address] [place], [address] Venous Blood Gason 5 Blood Gas Type DEBORAH Normal [facility] Comment on above: Performed By: #### L 9000.0810 #### [facility] [address] [place], [address] CO2 [Moles/Vol] 24 mmol/L Normal 23-33 [facility] Comment on above: Performed By: #### L 9000.0810 #### [facility] [address] [place], [address] HCO3 (Bld) [Moles/Vol] 23 mmol/L Normal 22-26 [facility] Comment on above: Performed By: #### L 9000.0810 #### [facility] [address] [place], [address] O2 Delivery Dev Not entered Normal [facility] Comment on above: Performed By: #### L 9000.0810 #### [facility] [address] [place], [address] SITE Not entered Normal [facility] Comment on above: Performed By: #### L 9000.0810 #### [facility] [address] [place], [address] VBG BE -1 mmol/L Normal -1.0-3.5 [facility] Comment on above: Performed By: #### L 9000.0810 #### [facility] [address] [place], [address] VBG pCO2 35.0 mmHg Low 41-51 [facility] Comment on above: Performed By: #### L 9000.0810 #### [facility] [address] [place], [address] VBG pH 7.43 High 7.32-7.42 [facility] Comment on above: Performed By: #### L 9000.0810 #### [facility] [address] [place], [address] VBG PO2 41 mmHg High 25-40 [facility] Comment on above: Performed By: #### L 9000.0810 #### [facility] [address] [place], [address] VBG SO2 79 High 50-70 [facility] Comment on above: Performed By: #### L 9000.0810 #### [facility] [address] [place], [address] CREAT/GFRon 07-21-2024 Creatinine [Mass/Vol] 0.58 mg/dL 0.50 - 1.20 mg/dL [facility] GFR/1.73 sq M.predicted CKD-EPI (S/P/Bld) [Vol rate/Area] [facility] Comment on above: Reported eGFR is bas ed on the CKD-EPI 2020 equation using creatinine, age, and sex. Interpretation and review of laboratory results Normal [facility] Test performed at address of the patient encounter. [facility] 3D MAMM BILAT SCREENon 06-30 3D MAMM BILAT SCREEN [place] [address] Patient: ILEANA LEONE Phone#: : [phone] Age: 68 Gender: F Pt. Type: Out Account: [id number] Location: Ordering: [facility] Exam Date: 06/30/2024/11:20 Family Phys: Charge Code: [id number] Physician: White Order #: [id number] Dose#: PROCEDURE: BILATERAL SCREENING BREAST TOMOSYNTHESIS MAMMOGRAM WITH CAD COMPARISON: [facility], 3D BILAT SCREEN, 12/17/2021, 13:59. [facility], 3D BILAT SCREEN, 01/06/2023, 9:14. INDICATIONS: Screening. BREAST COMPOSITION: Almost entirely fatty. FINDINGS: DIAGNOSTIC CATEGORY 1--NEGATIVE NO CHANGE FROM COMPARISON ASSESSMENT. RIGHT BREAST: No significant suspicious finding. No significant change has occurred. LEFT BREAST: No significant suspicious finding. No significant change has occurred. RECOMMENDATIONS: ROUTINE MAMMOGRAM AND CLINICAL EVALUATION IN 12 MONTHS. PLEASE NOTE: A NORMAL MAMMOGRAM DOES NOT EXCLUDE THE POSSIBILITY OF BREAST CANCER. A CLINICALLY SUSPICIOUS PALPABLE LUMP SHOULD BE BIOPSIED. THIS FACILITY UTILIZES A REMINDER SYSTEM TO ENSURE THAT ALL PATIENTS RECEIVE REMINDER LETTERS FOR APPOINTMENTS. THIS INCLUDES REMINDERS FOR ROUTINE MAMMOGRAMS, DIAGNOSITC MAMMOGRAMS, OR OTHER BREAST IMAGING INTERVENTIONS WHEN APPROPRIATE. THIS PATIENT WILL BE PLACED IN THE APPROPRIATE REMINDER SYSTEM. Dictated by: Ania Valderrama MD on 06/30/2024 at 12:13 Approved by: Ania Valderrama MD on 06/30/2024 at 12:15 Normal [facility] - Chemistry and C hemistry - challengeon 06-30-2024 Albumin [Mass/Vol] 4.2 g/dL Normal 3.6 - 5.1 g/dL [facility] Albumin/Globulin [Mass ratio] 1.8 {ratio} Normal 1.0 - 2.5 [facility].; [facility], [facility]. ALP [Catalytic activity/Vol] 70 U/L Normal 37 - 153 U/L [facility], [facility].; [facility], [facility]. ALT [Catalytic activity/Vol] 23 U/L Normal 6 - 29 U/L [facility], [facility].; [facility], [facility]. AST [Catalytic activity/Vol] 17 U/L Normal 10 - 35 U/L [facility], [facility].; [facility], [facility]. Bilirubin [Mass/Vol] 1.0 mg/dL Normal 0.2 - 1 .2 mg/dL [facility], [facility].; [facility], [facility]. Calcium [Mass/Vol] 9.4 mg/dL Normal 8.6 - 10. 4 mg/dL [facility], [facility].; [facility], [facility]. Chloride [Moles/Vol] 104 mmol/L Normal 98 - 11 0 mmol/L [facility] [employer].; [employer] [facility], [facility]. Cholesterol [Mass/Vol] 180 mg/dL Normal [facility].; [facility], [facility]. Cholesterol in HDL [Mass/Vol] 74 mg/dL Normal [facility], [facility].; [facility], [facility]. Cholesterol in LDL [Mass/Vol] 84 mg/dL Normal [facility], [facility].; [employer] [facility], [facility]. CO2 [Moles/Vol] 23 mmol/L Normal 20 - 32 mmol/L [facility].; [facility], [facility]. Creatinine [Mass/Vol] 0.69 mg/dL Normal 0.50 - 1.05 mg/dL [facility], [facility].; [employer] [facility], [facility]. GFR/1.73 sq M.predicted among non-blacks MDRD (S/P/Bld) [Vol rate/Area] 95 mL/min/{1.73_m2} Normal [facility], [facility].; [employer] [facility] Glucose [Mass/Vol] 92 mg/dL Normal 65 - 99 mg/dL [facility].; [facility], [facility]. Potassium [Moles/Vol] 4.1 mmol/L Normal 3.5 - 5.3 mmol/L [facility].; [facility] Protein [Mass/Vol] 6.5 g/dL Normal 6.1 - 8.1 g/dL [facility].; [facility], [facility] Sodium [Moles/Vol] 138 mmol/L Normal 135 - 146 mmol/L [facility]; [facility] [employer] Triglyceride [Mass/Vol] 123 mg/dL Normal [facility]; [facility], [facility] TSH Qn 1.51 m[IU]/L Normal 0.40 - 4.50 {mIU/L} [facility]; [facility], [facility] Urea nitrogen [Mass/Vol] 18 mg/dL Normal 7 - 25 mg/dL [facility]; [facility] - Hematology and Cell countson 06-30-2024 Basophils (Bld) [#/Vol] 0.058 10*3/uL Normal 0 - 200 {cells/uL} [facility].; [facility] Basophils/100 WBC (Bld) 1.1 % Normal [facility]; [facility] Eosinophils (Bld) [#/Vol] 0.127 10*3/uL Normal 15 - 500 {cells/uL} [facility].; [facility], [facility] Eosinophils/100 WBC (Bld) 2.4 % Normal [facility].; [facility] Erythrocyte distribution width (RBC) [Ratio] 13.1 % Normal 11.0 - 15.0 % [facility].; [facility] Hematocrit (Bld) [Volume fraction] 45.0 % Normal 35.0 - 45.0 % [facility].; [facility], [facility]. Hemoglobin (Bld) [Mass/Vol] 14.5 g/dL Normal 11.7 - 15.5 g/dL [facility].; [facility], [facility] Lymphocytes (Bld) [#/Vol] 1.41 10*3/uL Normal 850 - 3900 {cells/uL} [facility].; [email or web address]. Lymphocytes/100 WBC (Bld) 26.6 % Normal [employer] [facility].; [email or web address], [employer]. MCH (RBC) [Entitic mass] 28.4 pg Normal 27.0 - 33.0 pg [employer] [facility], [facility].; [email or web address], [employer]. MCHC (RBC) [Mass/Vol] 32.2 g/dL Normal 32.0 - 36.0 g/dL [employer] [facility].; [email or web address] MCV (RBC) [Entitic vol] 88.1 fL Normal 80.0 - 100.0 fL [email or web address], [employer].; [email or web address], [employer]. Monocytes (Bld) [#/Vol] 0.472 10*3/uL Normal 200 - 950 {cells/uL} [email or web address] Monocytes/100 WBC (Bld) 8.9 % Normal [employer] [employer] [facility].; [email or web address] Neutrophils (Bld) [#/Vol] 3.233 10*3/uL Normal 1500 - 7800 {cells/uL} [employer], [employer]. Neutrophils/100 WBC (Bld) 61 % Normal [place] [email or web address], [employer]. Platelet mean volume (Bld) [Entitic vol] 10.7 fL Normal 7.5 - 12.5 fL [email or web address], [employer].; [employer]. Platelets (Bld) [#/Vol] 237 10*3/uL Normal 140 - 400 [employer] [employer] [facility].; [employer] RBC (Bld) [#/Vol] 5.11 10*6/uL Abnormal 3.80 - 5.1 0 {Million/uL} [employer] WBC (Bld) [#/Vol] 5.3 10*3/uL Normal 3.8 - 10.8 [employer] [email or web address], [employer].; [employer], [employer]. No Panel Informationon 06-30 BUN/CREATININE RATIO SEE NOTE: Normal 6 - 22 [facility] [employer] CHOL/HDLC RATIO 2.4 Normal [facility]; [facility]. GLOBULIN 2.3 Normal 1.9 - 3.7 [facility]; [facility] NON HDL CHOLESTEROL 106 Normal [facility]; [facility] VITAMIN D,25-OH,TOTAL,IA 38 ng/mL Normal 30 - 100 ng/mL [facility]; [facility]. CT ANGIO BRAINon 03-23-2024 CT ANGIO BRAIN EXAM: CT ANGIO BRAIN, 03/17/2024 09:26 AM CLINICAL INDICATIONS: 68 years Female brain aneurysm. RELEVANT CLINICAL HISTORY: I67.1:Cerebral aneurysm, nonruptured COMPARISON: January 28, 2024 TECHNIQUE: A series of transaxial multislice computerized tomographic images are obtained with helical technique from below skull base through the vertex following bolus intravenous administration of nonionic contrast. Axial thin section source images, as well as sagittal and coronal thin section reformats, were provided at the scanner. Additional multiplanar and 3D reconstructions were provided. CONTRAST: iohexol (OMNIPAQUE) 350 MG/ML injection 1-171 mL; Route of Administration: Intravenous; Dose: 100 mL. FINDINGS: Again noted is the giant aneurysm, which is largely chart thrombosed, margins poorly seen due to streak artifact from the coil position. There is possible mild increase in this thrombosed component with increase in the enhancement at the superior margin of the coil mass (image 111 of series 4) measuring 9 mm previously 8 mm. The component more inferiorly abutting the flow diverting stent in the internal carotid artery is unchanged, measuring 11 x 9 mm (image 131 of series 4). INTERNAL CAROTID ARTERIES: Patent. ANTERIOR CEREBRAL ARTERIES: Patent and normal in caliber. The right anterior cerebral artery is not well seen. The left anterior cerebral artery is displaced by the thrombosed component MIDDLE CEREBRAL ARTERIES: Patent and normal in caliber. POSTERIOR CEREBRAL ARTERIES: Patent and normal in caliber. VERTEBRAL ARTERIES: Patent and normal in caliber. BASILAR ARTERY: Patent. No significant stenosis. OTHER: No AVM. IMPRESSION: Evaluation of the aneurysm is compromised due to streak artifact from the coil mass. The giant aneurysm is largely thrombosed although the exact margins of the thrombosed component are poorly seen. Mild increase in the enhancement at the superior margin of the coil mass with stable enhancement at the inferior margin of the coil mass. This is consistent with residual/recurrent aneurysm. Normal [facility] CREAT/GFRon 03-17-2024 Creatinine [Mass/Vol] 0.48 mg/dL Low 0.50 - 1.20 mg/dL [facility] GFR/1.73 sq M.predicted CKD-EPI (S/P/Bld) [Vol rate/Area] - PINF [facility] Comment on above: Reported eGFR is bas ed on the CKD-EPI 2020 equation using creatinine, age, and sex. Interpretation and review of laboratory results Abnormal [facility] Test performed at address of the patient encounter. [facility] CT ANGIO BRAINon 02-09-2024 CT ANGIO BRAIN EXAM: CT ANGIO BRAIN, 01/28/2024 13:32 PM CLINICAL INDICATIONS: 68 years Female previous pipeline stent, evaluate stability of aneurysm RELEVANT CLINICAL HISTORY: I67.1:Cerebral aneurysm, nonruptured COMPARISON: October 16, 2023 TECHNIQUE: A series of transaxial multislice computerized tomographic images are obtained with helical technique from below skull base through the vertex following bolus intravenous administration of nonionic contrast. Axial thin section source images, as well as sagittal and coronal thin section reformats, were provided at the scanner. Additional multiplanar and 3D reconstructions were provided. CONTRAST: iohexol (OMNIPAQUE) 350 MG/ML injection 1-171 mL; Route of Administration: Intravenous; Dose: 100 mL. FINDINGS: CT ANGIOGRAM NECK: AORTIC ARCH: Conventional anatomic origin of the great vessels. No significant stenosis. RIGHT CAROTID ARTERY: Common carotid artery is patent and normal in caliber. Internal carotid artery origin at the bifurcation is patent and normal in caliber. More distal cervical segments of the internal carotid artery are patent and normal in caliber. LEFT CAROTID ARTERY: Common carotid artery is patent and normal in caliber. Internal carotid artery origin at the bifurcation demonstrates atherosclerotic plaque, without significant stenosis. More distal cervical segments of the internal carotid artery are patent and normal in caliber. RIGHT VERTEBRAL ARTERY: Origin is patent. More distal cervical segments are patent and normal in caliber. LEFT VERTEBRAL ARTERY: Origin is patent. More distal cervical segments are patent and normal in caliber. OTHER: No dissection or pseudoaneurysm. CT ANGIOGRAM HEAD: Stable postoperative changes following coil embolization and pipeline flow diversion stenting of a giant right supraclinoid ICA aneurysm. Streak and beam hardening artifact related to the coil mass obscures the surrounding structures. Residual avidly contrast opacified portion of the aneurysm projecting inferiorly from the coil mass appears similar in size to the preoperative CTA measuring 11 x 8 mm, not significantly changed on direct comparison. The partially thrombosed portion of the aneurysm projecting medially from the coil mass previously measuring 2.5 x 2.3 cm has increased in size measuring 3.1 x 3.2 cm. INTERNAL CAROTID ARTERIES: Right ICA pipeline stent appears patent. Left intracranial ICA demonstrates atherosclerosis with mild focal stenosis in the supraclinoid segment. ANTERIOR CEREBRAL ARTERIES: The bilateral ACAs are displaced to the left due to the large thrombosed portion of the aneurysm. The ACAs appear patent. Assessment for focal stenoses is difficult due to streak and beam hardening artifact from the large coil mass. MIDDLE CEREBRAL ARTERIES: Patent and normal in caliber. POSTERIOR CEREBRAL ARTERIES: Patent and normal in caliber. VERTEBRAL ARTERIES: Focal atherosclerotic plaque in the proximal left V4 segment without significant stenosis. The right intracranial vertebral artery is patent and normal in caliber. BASILAR ARTERY: Patent. No significant stenosis. OTHER: No AVM. ADDITIONAL FINDINGS: No major incidental findings. IMPRESSION: 1. Stable postoperative changes following coil embolization and pipeline flow diversion stenting for treatment of a right ICA giant aneurysm. 2. Interval further increase size of the partially thrombosed portion of the aneurysm projecting medially from the coil mass.. Residual avidly contrast opacified portion of the aneurysm projecting inferiorly from the coil mass appears similar in size to the preoperative CTA. 3. No significant stenosis of the carotid or vertebral arteries in the neck. Normal [facility] CREAT/GFRon 01-28-2024 Creatinine [Mass/Vol] 0.49 mg/dL Low 0.50 - 1.20 mg/dL [facility] GFR/1.73 sq M.predicted CKD-EPI (S/P/Bld) [Vol rate/Area] - PINF [facility] Comment on above: Reported eGFR is bas ed on the CKD-EPI 2020 equation using creatinine, age, and sex. Interpretation and review of laboratory results Abnormal [facility] Test performed at address of the patient encounter. [facility] ACT* LOW RANGE, POCon 2023 ACT LOW RANGE, POC 284.0 High [facility] Interpretation and review of laboratory results Abnormal [facility] Test performed at address of the patient encounter. [facility] ACT LOW RANGE, POC 145.0 [facility] Interpretation and review of laboratory results Normal [facility] Test performed at address of the patient encounter. [facility] CARDIAC RHYTHM (SCANNED)on 0 11-20-2023 [facility] CBC,PLATELETSon 11-17-2023 Hematocrit (Bld) [Volume fraction] 46.9 % High 34.9-44.[address] [facility] Comment on above: Performed By: #### C 7ED, RF, ANCA, YACE #### [facility] (DEFAULT) [address] [place] [address]77 Hemoglobin (Bld) [Mass/Vol] 15.4 g/dL High 11.4-15.[address] [facility] Comment on above: Performed By: #### C 7ED, RF, ANCA, YACE #### [facility] (DEFAULT) [address] [place] [address]772 MCV (RBC) [Entitic vol] 87.5 fL Normal 79.6-97.[address] [facility] Comment on above: Performed By: #### C 7ED, RF, ANCA, YACE #### [facility] (DEFAULT) [address] [place] [address] 24141 Mean Cell Hgb 28.7 pg Normal 25.9-33.[address] [facility] Comment on above: Performed By: #### C 7ED, RF, ANCA, YACE #### [facility] (DEFAULT) [address] [place] [address] 31357 Mean Cell Hgb Conc 32.8 g/dL Normal 31.4-35.9 [facility] Comment on above: Performed By: #### C 7ED, RF, ANCA, YACE #### [facility] (DEFAULT) [address] [place] [address] 47530 Platelet mean volume (Bld) [Entitic vol] 9.4 fL Normal 8.5-12.[address] [facility] Comment on above: Performed By: #### Teri 7ED, RF, ANCA, YACE #### [facility] (DEFAULT) [address] [place] [address] 28774 Platelets (Bld) [#/Vol] 228 10*3/uL Normal 150-[address] [facility] Comment on above: Performed By: #### Teri 7ED, RF, ANCA, YACE #### [facility] (DEFAULT) [address] [place] [address] 78782 RBC (Bld) [#/Vol] 5.36 10*6/uL High 3.91-5.[address] [facility] Comment on above: Performed By: #### Teri 7ED, RF, ANCA, YACE #### [facility] (DEFAULT) [address] [place] [address] 12898 RBC Distribution 13.8 % Normal 10.8-14.9 [facility] Comment on above: Performed By: #### C 7ED, RF, ANCA, YACE #### [facility] (DEFAULT) [address] [place] [address] 17270 WBC (Bld) [#/Vol] 6.00 10*3/uL Normal 3.99-11.[address] [facility] Comment on above: Performed By: #### C 7ED, RF, ANCA, YACE #### [facility] (DEFAULT) [address] [place] [address] 51578 CHEM 6 (LYTES, BUN CREA)on 0 11-17-2023 Anion gap [Moles/Vol] 16 mmol/L Normal 7-17 [facility] Comment on above: Performed By: #### C 7ED, RF, ANCA, YACE #### [facility] (DEFAULT) [address] [place] [address] 73162 Chloride [Moles/Vol] 102 mmol/L Normal 98-[address] [facility] Comment on above: Performed By: #### C 7ED, RF, ANCA, YACE #### [facility] (DEFAULT) [address] [place] [address] 58600 CO2 [Moles/Vol] 27 mmol/L Normal 21-31 [facility] Comment on above: Performed By: #### Teri 7ED, RF, ANCA, YACE #### [facility] (DEFAULT) [address] [place] [address] 68977 Creatinine [Mass/Vol] 0.66 mg/dL Normal 0.50-1.20 [facility] Comment on above: Performed By: #### C 7ED, RF, ANCA, YACE #### [facility] (DEFAULT) [address] [place] [address] 79789 eGFR, CKD-EPI, Female > Normal >=60 [facility] Comment on above: Result Comment: Repo rted eGFR is based on the CKD-EPI 2021 equation using creatinine, age, and sex. Performed By: #### C 7ED, RF, ANCA, YACE #### [facility] (DEFAULT) [address] [place] [address] 73397 Potassium [Moles/Vol] 4.5 mmol/L Normal 3.5-5.0 [facility] Comment on above: Performed By: #### C 7ED, RF, ANCA, YACE #### [facility] (DEFAULT) [address] [place] [address] 30983 Sodium [Moles/Vol] 140 mmol/L Normal 135-145 [facility] Comment on above: Performed By: #### C 7ED, RF, ANCA, YACE #### [facility] (DEFAULT) [address] [place] [address] Urea nitrogen [Mass/Vol] 12 mg/dL Normal 12-[address] [facility] Comment on above: Performed By: ###Jana MENDOZA, RF, ANCA, YACE #### [facility] (DEFAULT) [address] [place] [address] Urea nitrogen/Creatinine [Mass ratio] 18 mg/mg Normal [facility] Comment on above: Performed By: ###Jana MENDOZA, RF, ANCA, YACE #### [facility] (DEFAULT) [address] [place] [address] CARDIAC PULMONARY VENOGRA [facility] 11-17-2023 CT CARDIAC PULMONARY VENOGRAM [facility] CT Report Name: ILEANA LEONE : 1955 Scan Date: 2023-11-17 13:37:09 Electronically signed by Jac Cr 14:32:13 VITALS ====== HEIGHT: 65 in (165.10 cm) WEIGHT: 205.00 lbs (92.99 kgs) BSA: 2.00 m^2 BMI: 34 kg/m^2 BP: 130 / 75 mmHg BASELINE HR: 73 BPM FINAL ====== No LA, RA or ALEX thrombus Mild multivessel coronary calcification within the limitation of the study Normal pulmonary venous anatomy, measurements detailed below Watchman device implantation related measurements are reported below. Short neck to appendage. == History of atrial arrhythmia. This pulmonary CT venogram is to assess left atrial (LA) and pulmonary venous (PV) anatomy. There are 4 pulmonary veins draining to the left atrium. No evidence of PV stenosis RUPV: 22mm x 16mm, early branching RLPV: 18mm x 14mm, early branching LUPV: 18mm x 15mm LLPV: 17mm x 10mm There is no LA, RA or ALEX thrombus by first pass and delayed images. Prominent pectinate muscle is seen in the ALEX. Watchman device landing zone is 18 x 13 mm, area of 1.8 cm2. Perimeter of 49 mm, as measured 4 mm from the tip of the Coumadin ridge at 42% RR of the cardiac cycle due to short neck of appendage. Depth is 18 mm. Cardiac Structure: Aortic valve: There is aortic valve calcification. Mitral valve: There is no mitral annular calcification. The pericardium: normal without evidence of thickening or calcification. Major vessels: The aortic root: normal in size measuring 30 mm (right cusp-commissure). The ascending aorta: measures 34 mm at the level of the pulmonary artery bifurcation. There is no calcific atherosclerosis of the ascending aorta. The thoracic descending aorta: There is calcific atherosclerosis of the descending thoracic aorta. The main pulmonary artery: appears normal and measures 26 mm in diameter in axial scan. No obvious filling defect is seen in the pulmonary trunk or in the right and left main pulmonary arteries. Extra cardiac findings detailed below, though the study has limited field of view and is not optimized to assess extracardiac structures. Chest wall: no major deformity. Mediastinum: Non-calcified mediastinal adenopathy measures 1.4cm. Marguerite: Normal, without adenopathy Pleural spaces: Normal, without thickening/effusion or pneumothorax. Lung Parenchyma: LLL 6 mm noncalcified nodule. DEVIN 5 mm noncalcified nodule. Irregular patchy consolidative change adjacent to the fissure the RUL/RLL. STUDY QUALITY: Study quality is good. 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: [employer] SCANNER MODEL: [employer] DOSE REDUCTION ALGORITHM: Prospective/Step-and -shoot SCAN COVERAGE ZONE: Pulmonary Veins/ALEX EKG GATED: Yes GENERAL -------- CONTRAST AGENT ------ CONTRAST AGENT USED?: Yes TYPE: Omnipaque 350 DOSE: 50 ml RATE: 4 ml/s ROUTE: IV BOLUS TECHNIQUE: Biphasic SCAN DELAY TIME METHOD: Bolus Track SERUM CREATININE: 0.82 mg/dL GFR: 73.91 ml/min/1.73m^2 CREATININE DATE: CT CONTRAST REACTION: None RADIATION DOSE ------ DLP: 432 SETUP ------ DATE OF EVENT: SCAN TYPE: Clinical PATIENT TYPE: Outpatient REASON(S) FOR SCAN: EP procedure planning REFERRING PHYSICIAN: 1) Mac Burch MD NURSE: Katty Hagen ATTENDING PHYSICIAN: JAC CR TECHNOLOGIST: Dari Al BILLING ====== Patient Account [id number] CPT Codes 80233 ICD10 Codes I76 Report generated by [employer], a product of [employer] Normal [facility] PLATELET P2Y12 INHIBITION TE STon 11-17-2023 Platelet P2Y12 Inhibition Test 56 PRU Low 194-[address] [facility] Comment on above: Result Comment: Test results are reported in P2Y12 Reaction Units (PRU). The pre-drug Normal Reference Range is 194 - 418 PRU. PRU measures the extent of platelet aggregation in the presence of P2Y12 inhibitor drugs such as clopidogrel (Plavix), prasugrel (Effient), ticlopidine (Ticlid), and ticagrelor (Brilinta). Patients who have been treated with Glycoprotein IIb/IIIa inhibitors should not be tested until platelet function has recovered. This time period is approximately 14 days after discontinuation of abciximab (ReoPro) and up to 48 hours after discontinuation of eptifibatide (Integrilin) and tirofiban (Aggrastat). Performed By: #### C 7ED, RF, ANCA, BARRY #### [facility] (DEFAULT) [address] [address] PT,INR,PTTon 11-17-2023 aPTT Coag (Bld) [Time] 27.8 s Normal 24.0-34.3 Oh [facility] Comment on above: Performed By: #### C REJI, RF, ANCA, BARRY #### [facility] (DEFAULT) [address] [place] [address] INR Coag (PPP) [Relative time] 1.0 {INR} Normal 0.9-1.[address] [facility] Comment on above: Performed By: #### Teri MENDOZA, RF, ANCA, YACE #### [facility] (DEFAULT) [address] [place] [address] PT Coag (PPP) [Time] 12.7 s Normal 11.9-14.[address] [facility] Comment on above: Performed By: #### Teri MENDOZA, RF, ANCA, YACE #### [facility] (DEFAULT) [address] [place] [address] CHEM 6 (LYTES, BUN CREA)on 0 10-29-2023 Anion gap [Moles/Vol] 15 mmol/L 7 - 17 mmol/L [facility] Chloride [Moles/Vol] 102 mmol/L 98 - 10 8 mmol/L [facility] CO2 [Moles/Vol] 27 mmol/L 21 - 31 mmol/L [facility] Creatinine [Mass/Vol] 0.82 mg/dL 0.50 - 1.20 mg/dL [facility] eGFR, CKD-EPI, Female 80 - PINF [facility] Comment on above: Reported eGFR is bas ed on the CKD-EPI 2020 equation using creatinine, age, and sex. Potassium [Moles/Vol] 5.0 mmol/L 3.5 - 5.0 mmol/L [facility] Sodium [Moles/Vol] 139 mmol/L 135 - 145 mmol/L [facility] Urea nitrogen [Mass/Vol] 18 mg/dL 7 - 25 mg/dL [facility] Urea nitrogen/Creatinine [Mass ratio] 22 mg/mg [facility] Anion gap [Moles/Vol] 15 mmol/L Normal 7-17 [facility] Comment on above: Performed By: #### Teri MENDOZA, RF, ANCA, YACE #### [facility] (DEFAULT) [address] [place] [address] Chloride [Moles/Vol] 102 mmol/L Normal 98-[address] [facility] Comment on above: Performed By: #### Teri MENDOZA RF, ANCA, YACE #### [facility] (DEFAULT) [address] [place] [address]771 CO2 [Moles/Vol] 27 mmol/L Normal 21-31 [facility] Comment on above: Performed By: #### Teri MENDOZA, RF, ANCA, YACE #### [facility] (DEFAULT) [address] [place] [address] Creatinine [Mass/Vol] 0.82 mg/dL Normal 0.50-1.20 [facility] Comment on above: Performed By: #### Teri MENDOZA, RF, ANCA, YACE #### [facility] (DEFAULT) [address] [place] [address]49 GFR/1.73 sq M.predicted among non-blacks MDRD (S/P/Bld) [Vol rate/Area] 79 mL/min/{1.73_m2} Normal >=[address] [facility] Comment on above: Result Comment: Repo rted eGFR is based on the CKD-EPI 2020 equation using creatinine, age, and sex. Performed By: #### Teri 7ED, RF, ANCA, YACE #### [facility] (DEFAULT) [address] [place] [address] Potassium [Moles/Vol] 5.0 mmol/L Normal 3.5-5.0 [facility] Comment on above: Performed By: #### Teri 7ED, RF, ANCA, YACE #### [facility] (DEFAULT) [address] [place] [address] Sodium [Moles/Vol] 139 mmol/L Normal 135-145 [facility] Comment on above: Performed By: #### Teri 7ED, RF, ANCA, YACE #### [facility] (DEFAULT) [address] [place] [address] Urea nitrogen [Mass/Vol] 18 mg/dL Normal 7-[address] [facility] Comment on above: Performed By: #### C 7ED, RF, ANCA, YACE #### [facility] (DEFAULT) [address] [place] [address] Urea nitrogen/Creatinine [Mass ratio] 22 mg/mg Normal [facility] Comment on above: Performed By: #### C 7ED, RF, ANCA, YACE #### [facility] (DEFAULT) [address] [place] [address] PT,INR,PTTon 10-29-2023 aPTT Coag (PPP) [Time] 28.3 s [facility] INR Coag (Bld) [Relative time] 1.2 {INR} High 0.9 - 1.1 [facility] Interpretation and review of laboratory results Abnormal [facility] PT Coag (PPP) [Time] 15.6 s High [facility] aPTT Coag (Bld) [Time] 28.3 s Normal 24.0-34.3 [facility] Comment on above: Performed By: #### L [id number] #### [facility] (DEFAULT) [address] [place] [address] INR Coag (PPP) [Relative time] 1.2 {INR} High 0.9-1.[address] [facility] Comment on above: Performed By: #### L [id number] #### [facility] (DEFAULT) [address] [place] [address] PT Coag (PPP) [Time] 15.6 s High 11.9-14.[address] [facility] Comment on above: Performed By: #### L [id number] #### [facility] (DEFAULT) [address] [place] [address]35 SYPHILIS AB W/REFLEX RPRon 0 10-17-2023 Syphilis IgG/IGM Total Non-Reactive Normal Non Reactiv e [facility] Comment on above: Performed By: #### C 7ED, RF, ANCA, YACE #### [facility] (DEFAULT) [address] [address] T. pallidum Ab Ql (S)Ordered By: Slime Baird on 10-17-2023 Interpretation and review of laboratory results Normal [facility] T. pallidum IgG Ql (S) Non-Reactive Non Reactiv e [facility] JOSH MULTIPLEX SCRN WITH REFL EXon 10-16-2023 JOSH Screen, Multiplex Negative Normal [facility] Comment on above: Result Comment: This test includes the following antibodies: Centromere, Chromatin, DsDNA, Jo1, Ribosomal P, HUMAN RESOURCES ANALYST, ScL70, Sm/HUMAN RESOURCES ANALYST, Almaguer, SSA and SSB. A negative screen result means each antibody listed is negative. If positive, the individual antibody results will be reflexed. Performed By: #### C 7ED, RF, ANCA, YACE #### [facility] (DEFAULT) [address] [address] ANGIOTENSIN CONVERTING ENZYM Dani 10-16-2023 Angiotensin converting enzyme [Catalytic activity/Vol] 57 U/L 19 - 123 U/L [facility] Interpretation and review of laboratory results Normal [facility] Angiotensin converting enzyme [Catalytic activity/Vol] 57 U/L Normal 19-[address] [facility] Comment on above: Performed By: #### C 7ED, RF, ANCA, YACE #### [facility] (DEFAULT) [address] [address] ANTI NEUTROPHIL CYTOPLASMIC ANTIBODYon 10-16-2023 Neutrophil Cytoplasmic Antibody Negative Normal Negative [facility] Comment on above: Performed By: #### C 7ED, RF, ANCA, YACE #### [facility] (DEFAULT) [address] [address] CBC AND ELECTRONIC DIFFon Basophils (Bld) [#/Vol] 0.04 10*3/uL 0.00 - 0.15 K/uL [facility] Basophils/100 WBC (Bld) 0.7 % [facility] Differential cell count method Nom (Bld) Electronic Differential [facility] Eosinophils (Bld) [#/Vol] 0.16 10*3/uL 0.00 - 0.42 K/uL [facility] Eosinophils/100 WBC (Bld) 2.6 % [facility] Erythrocyte distribution width (RBC) [Ratio] 13.2 % 10.8 - 14.9 % [facility] Hematocrit (Bld) [Volume fraction] 47.9 % High 34.9 - 44.3 % [facility] Hemoglobin (Bld) [Mass/Vol] 16.2 g/dL High 11.4 - 15.2 g/dL [facility] Immature granulocytes (Bld) [#/Vol] K/uL NINF - 0.08 K/uL [facility] Immature granulocytes/100 WBC (Bld) 0.3 % [facility] Interpretation and review of laboratory results Abnormal [facility] Lymphocytes (Bld) [#/Vol] 1.92 10*3/uL 1.16 - 3.51 K/uL [facility] Lymphocytes/100 WBC (Bld) 31.6 % [facility] MCH (RBC) [Entitic mass] 29.1 pg 25.9 - 33.9 pg [facility] MCHC (RBC) [Mass/Vol] 33.8 g/dL 31.4 - 35.9 g/dL [facility] MCV (RBC) [Entitic vol] 86.0 fL 79.6 - 97.7 fL [facility] Monocytes (Bld) [#/Vol] 0.42 10*3/uL 0.22 - 0.87 K/uL [facility] Monocytes/100 WBC (Bld) 6.9 % [facility] Neutrophils (Bld) [#/Vol] 3.52 10*3/uL 1.64 - 7.28 K/uL [facility] Nucleated RBC/100 WBC (Bld) [Ratio] 0.0 % [facility] Platelet mean volume (Bld) [Entitic vol] 9.9 fL 8.5 - 12.2 fL [facility] Platelets (Bld) [#/Vol] 227 10*3/uL 150 - 393 K/uL [facility] RBC (Bld) [#/Vol] 5.57 10*6/uL High [facility] Segmented neutrophils/100 WBC (Bld) 57.9 % [facility] WBC (Bld) [#/Vol] 6.08 10*3/uL 3.99 - 11. 19 K/uL [facility] Basophils (Bld) [#/Vol] 0.04 10*3/uL Normal 0.00-0.[address] [facility] Comment on above: Performed By: #### L [id number] #### [facility] (DEFAULT) [address] [address] Basophils/100 WBC (Bld) 0.7 % Normal [facility] Comment on above: Performed By: #### L [id number] #### [facility] (DEFAULT) [address] [address] DIFF STATUS Electronic Differential Normal [facility] Comment on above: Performed By: #### L [id number] #### [facility] (DEFAULT) [address] [address] Eosinophils (Bld) [#/Vol] 0.16 10*3/uL Normal 0.00-0.[address] [facility] Comment on above: Performed By: #### L [id number] #### [facility] (DEFAULT) [address] [address] Eosinophils/100 WBC (Bld) 2.6 % Normal [facility] Comment on above: Performed By: #### L [id number] #### [facility] (DEFAULT) [address] [address] Hematocrit (Bld) [Volume fraction] 47.9 % High 34.9-44.[address] [facility] Comment on above: Performed By: #### L [id number] #### [facility] (DEFAULT) [address] [address] Hemoglobin (Bld) [Mass/Vol] 16.2 g/dL High 11.4-15.[address] [facility] Comment on above: Performed By: #### L [id number] #### [facility] (DEFAULT) [address] [address] Immature Grans % 0.3 % Normal [facility] Comment on above: Performed By: #### L [id number] #### [facility] (DEFAULT) [address] [address] Immature Grans Absolute < Normal <=0.[address] [facility] Comment on above: Performed By: #### L [id number] #### [facility] (DEFAULT) [address] [address] Lymphocytes (Bld) [#/Vol] 1.92 10*3/uL Normal 1.16-3.[address] [facility] Comment on above: Performed By: #### L [id number] #### [facility] (DEFAULT) [address] [address] Lymphocytes/100 WBC (Bld) 31.6 % Normal [facility] Comment on above: Performed By: #### L [id number] #### [facility] (DEFAULT) [address] [address] MCV (RBC) [Entitic vol] 86.0 fL Normal 79.6-97.[address] [facility] Comment on above: Performed By: #### L [id number] #### [facility] (DEFAULT) [address] [address] Mean Cell Hgb 29.1 pg Normal 25.9-33.[address] [facility] Comment on above: Performed By: #### L [id number] #### [facility] (DEFAULT) [address] [address] Mean Cell Hgb Conc 33.8 g/dL Normal 31.4-35.9 [facility] Comment on above: Performed By: #### L [id number] #### [facility] (DEFAULT) [address] [place] [address] Monocytes (Bld) [#/Vol] 0.42 10*3/uL Normal 0.22-0.[address] [facility] Comment on above: Performed By: #### L [id number] #### [facility] (DEFAULT) [address] [place] [address] Monocytes/100 WBC (Bld) 6.9 % Normal [facility] Comment on above: Performed By: #### L [id number] #### [facility] (DEFAULT) [address] [place] [address] Nucleated RBC 0.0 /100 WBC Normal <=0.2 [facility] Comment on above: Performed By: #### L [id number] #### [facility] (DEFAULT) [address] [place] [address] Platelet mean volume (Bld) [Entitic vol] 9.9 fL Normal 8.5-12.[address] [facility] Comment on above: Performed By: #### L [id number] #### [facility] (DEFAULT) [address] [place] [address] Platelets (Bld) [#/Vol] 227 10*3/uL Normal 150-[address] [facility] Comment on above: Performed By: #### L [id number] #### [facility] (DEFAULT) [address] [place] [address] RBC (Bld) [#/Vol] 5.57 10*6/uL High 3.91-5.[address] [facility] Comment on above: Performed By: #### L [id number] #### [facility] (DEFAULT) [address] [address] RBC Distribution 13.2 % Normal 10.8-14.9 [facility] Comment on above: Performed By: #### L [id number] #### [facility] (DEFAULT) [address] [place] [address] Segs + Bands Auto 57.9 % Normal [facility] Comment on above: Performed By: #### L [id number] #### [facility] (DEFAULT) [address] [place] [address] Segs + Bands,Absolute Auto 3.52 K/uL Normal 1.64-7.[address] [facility] Comment on above: Performed By: #### L [id number] #### [facility] (DEFAULT) [address] [place] [address] WBC (Bld) [#/Vol] 6.08 10*3/uL Normal 3.99-11.[address] [facility] Comment on above: Performed By: #### L [id number] #### [facility] (DEFAULT) [address] [place] [address] CH 7 - EDon 10-16-2023 Anion gap [Moles/Vol] 13 mmol/L 7 - 17 mmol/L [facility] Chloride [Moles/Vol] 103 mmol/L 98 - 10 8 mmol/L [facility] CO2 [Moles/Vol] 25 mmol/L 21 - 31 mmol/L [facility] Creatinine [Mass/Vol] 0.71 mg/dL 0.50 - 1.20 mg/dL [facility] eGFR, CKD-EPI, Female - PINF [facility] Comment on above: Reported eGFR is bas ed on the CKD-EPI 2020 equation using creatinine, age, and sex. Glucose [Mass/Vol] 105 mg/dL High 70 - 99 mg/dL [facility] Interpretation and review of laboratory results Abnormal [facility] Osmolality Calc [Osmolality] 287 [facility] Potassium [Moles/Vol] 4.1 mmol/L 3.5 - 5.0 mmol/L [facility] Sodium [Moles/Vol] 137 mmol/L 135 - 145 mmol/L [facility] Urea nitrogen [Mass/Vol] 11 mg/dL 7 - 25 mg/dL [facility] Urea nitrogen/Creatinine [Mass ratio] 15 mg/mg [facility] Anion gap [Moles/Vol] 13 mmol/L Normal 7-17 [facility] Comment on above: Performed By: #### Teri MENDOZA, RF, ANCA, YACE #### [facility] (DEFAULT) [address] [place] [address] Chloride [Moles/Vol] 103 mmol/L Normal 98-[address] [facility] Comment on above: Performed By: #### Teri 7ED, RF, ANCA, YACE #### [facility] (DEFAULT) [address] [place] [address] CO2 [Moles/Vol] 25 mmol/L Normal 21-31 [facility] Comment on above: Performed By: #### Teri MENDOZA, RF, ANCA, YACE #### [facility] (DEFAULT) [address] [place] [address] Creatinine [Mass/Vol] 0.71 mg/dL Normal 0.50-1.20 [facility] Comment on above: Performed By: #### Teri MENDOZA, RF, ANCA, YACE #### [facility] (DEFAULT) [address] [place] [address] eGFR, CKD-EPI, Female > Normal >=60 [facility] Comment on above: Result Comment: Repo rted eGFR is based on the CKD-EPI 1 equation using creatinine, age, and sex. Performed By: #### Teri 7ED, RF, ANCA, YACE #### [facility] (DEFAULT) [address] [place] [address] Glucose [Mass/Vol] 105 mg/dL High 70-99 [facility] Comment on above: Performed By: #### Teri 7ED, RF, ANCA, YACE #### [facility] (DEFAULT) [address] [place] [address] Osmolality [Osmolality] 287 mosm/kg Normal 278-[address] [facility] Comment on above: Performed By: #### Teri 7ED, RF, ANCA, YACE #### [facility] (DEFAULT) [address] [place] [address] Potassium [Moles/Vol] 4.1 mmol/L Normal 3.5-5.0 [facility] Comment on above: Performed By: #### C 7ED, RF, ANCA, YACE #### [facility] (DEFAULT) [address] [place] [address] Sodium [Moles/Vol] 137 mmol/L Normal 135-145 [facility] Comment on above: Performed By: #### C 7ED, RF, ANCA, YACE #### [facility] (DEFAULT) [address] [place] [address] Urea nitrogen [Mass/Vol] 11 mg/dL Normal 7-[address] [facility] Comment on above: Performed By: #### C 7ED, RF, ANCA, YACE #### [facility] (DEFAULT) [address] [place] [address] Urea nitrogen/Creatinine [Mass ratio] 15 mg/mg Normal [facility] Comment on above: Performed By: #### C 7ED, RF, ANCA, YACE #### [facility] (DEFAULT) [address] [place] [address] ANGIO BRAIN/NECKon 2023 CT ANGIO BRAIN/NECK EXAM: CT ANGIO BRAIN/NECK, 10/16/2023 18:44 PM COMPARISON: Outside institution CTA brain/neck 05/29/2023. Conventional angiography 05/30/2023. CLINICAL INDICATIONS: 67 years Female evaluate aneurysm; TECHNIQUE: A series of transaxial multislice computerized tomographic images are obtained with helical technique from top of aortic arch to vertex following bolus intravenous administration of nonionic contrast. Axial thin section source images, as well as sagittal and coronal thin section reformats, were provided at the scanner. Additional multiplanar and 3D reconstructions were provided. CONTRAST: iohexol (OMNIPAQUE) 350 MG/ML injection 1-171 mL; Route of Administration: Intravenous; Dose: 100 mL. FINDINGS: CT ANGIOGRAM NECK: AORTIC ARCH: Conventional anatomic origin of the great vessels. No significant stenosis. RIGHT CAROTID ARTERY: Common carotid artery is patent and normal in caliber. Internal carotid artery origin at the bifurcation is patent and normal in caliber. More distal cervical segments of the internal carotid artery are patent and normal in caliber. LEFT CAROTID ARTERY: Common carotid artery is patent and normal in caliber. Internal carotid artery origin at the bifurcation demonstrates atherosclerotic plaque, without significant stenosis. More distal cervical segments of the internal carotid artery are patent and normal in caliber. RIGHT VERTEBRAL ARTERY: Origin is patent. More distal cervical segments are patent and normal in caliber. LEFT VERTEBRAL ARTERY: Origin is patent. More distal cervical segments are patent and normal in caliber. OTHER: No dissection or pseudoaneurysm. 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 Streak and beam hardening artifact related to the coil mass obscures the surrounding structures. Residual avidly contrast opacified portion of the aneurysm projecting inferiorly from the coil mass appears similar in size to the preoperative CTA measuring 11 x 9 x 7 mm (AP by TR by CC) (series 4 image 144 and series 5 image 88), not significantly changed on direct comparison. The partially thrombosed portion of the aneurysm projecting medially from the coil mass demonstrates areas of hyperdensity peripherally and superiorly and has increased in size compared to the preoperative CTA measuring 24 x 25 x 28 mm (AP by TR by CC), previously 21 x 22 x 24 mm. INTERNAL CAROTID ARTERIES: Right ICA pipeline stent appears patent. Left intracranial ICA demonstrates atherosclerosis with mild focal stenosis in the supraclinoid segment. ANTERIOR CEREBRAL ARTERIES: The bilateral ACAs are displaced to the left due to the large thrombosed portion of the aneurysm. The ACAs appear patent. Assessment for focal stenoses is difficult due to streak and beam hardening artifact from the large coil mass. MIDDLE CEREBRAL ARTERIES: Patent and normal in caliber. POSTERIOR CEREBRAL ARTERIES: Patent and normal in caliber. VERTEBRAL ARTERIES: Focal atherosclerotic plaque in the proximal left V4 segment without significant stenosis. The right intracranial vertebral artery is patent and normal in caliber. BASILAR ARTERY: Patent. No significant stenosis. OTHER: No AVM. ADDITIONAL FINDINGS: No major incidental findings. IMPRESSION: 1. 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 2. Interval increase in size of the partially thrombosed portion of the aneurysm projecting medially from the coil mass with areas of hyperdensity peripherally and superiorly compared to the preoperative CTA, concerning for persistent aneurysm filling. Residual avidly contrast opacified portion of the aneurysm projecting inferiorly from the coil mass appears similar in size to the preoperative CTA. 3. No significant stenosis of the carotid or vertebral arteries in the neck. Normal [facility] CT Head and CT Brain for per fusion and CT angiogram Head vessels WO and W contrast Josse 10-16-2023 IMPRESSION: 1. 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 2. Interval increase in size of the partially thrombosed portion of the aneurysm projecting medially from the coil mass with areas of hyperdensity peripherally and superiorly compared to the preoperative CTA, concerning for persistent aneurysm filling. Residual avidly contrast opacified portion of the aneurysm projecting inferiorly from the coil mass appears similar in size to the preoperative CTA. 3. No significant stenosis of the carotid or vertebral arteries in the neck. OLOGY EXAM: CT ANGIO BRAIN/NECK, 10/16/2023 18:44 PM COMPARISON: Outside institution CTA brain/neck 05/29/2023. Conventional angiography 05/30/2023. CLINICAL INDICATIONS: 67 years Female evaluate aneurysm; TECHNIQUE: A series of transaxial multislice computerized tomographic images are obtained with helical technique from top of aortic arch to vertex following bolus intravenous administration of nonionic contrast. Axial thin section source images, as well as sagittal and coronal thin section reformats, were provided at the scanner. Additional multiplanar and 3D reconstructions were provided. CONTRAST: iohexol (OMNIPAQUE) 350 MG/ML injection 1-171 mL; Route of Administration: Intravenous; Dose: 100 mL. FINDINGS: CT ANGIOGRAM NECK: AORTIC ARCH: Conventional anatomic origin of the great vessels. No significant stenosis. RIGHT CAROTID ARTERY: Common carotid artery is patent and normal in caliber. Internal carotid artery origin at the bifurcation is patent and normal in caliber. More distal cervical segments of the internal carotid artery are patent and normal in caliber. LEFT CAROTID ARTERY: Common carotid artery is patent and normal in caliber. Internal carotid artery origin at the bifurcation demonstrates atherosclerotic plaque, without significant stenosis. More distal cervical segments of the internal carotid artery are patent and normal in caliber. RIGHT VERTEBRAL ARTERY: Origin is patent. More distal cervical segments are patent and normal in caliber. LEFT VERTEBRAL ARTERY: Origin is patent. More distal cervical segments are patent and normal in caliber. OTHER: No dissection or pseudoaneurysm. 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 Streak and beam hardening artifact related to the coil mass obscures the surrounding structures. Residual avidly contrast opacified portion of the aneurysm projecting inferiorly from the coil mass appears similar in size to the preoperative CTA measuring 11 x 9 x 7 mm (AP by TR by CC) (series 4 image 144 and series 5 image 88), not significantly changed on direct comparison. The partially thrombosed portion of the aneurysm projecting medially from the coil mass demonstrates areas of hyperdensity peripherally and superiorly and has increased in size compared to the preoperative CTA measuring 24 x 25 x 28 mm (AP by TR by CC), previously 21 x 22 x 24 mm. INTERNAL CAROTID ARTERIES: Right ICA pipeline stent appears patent. Left intracranial ICA demonstrates atherosclerosis with mild focal stenosis in the supraclinoid segment. ANTERIOR CEREBRAL ARTERIES: The bilateral ACAs are displaced to the left due to the large thrombosed portion of the aneurysm. The ACAs appear patent. Assessment for focal stenoses is difficult due to streak and beam hardening artifact from the large coil mass. MIDDLE CEREBRAL ARTERIES: Patent and normal in caliber. POSTERIOR CEREBRAL ARTERIES: Patent and normal in caliber. VERTEBRAL ARTERIES: Focal atherosclerotic plaque in the proximal left V4 segment without significant stenosis. The right intracranial vertebral artery is patent and normal in caliber. BASILAR ARTERY: Patent. No significant stenosis. OTHER: No AVM. ADDITIONAL FINDINGS: No major incidental findings. RADIOLOGY Curly Vogel MD - 10/16/2023 EXAM: CT ANGIO BRAIN/NECK, 10/16/2023 18:44 PM COMPARISON: Outside institution CTA brain/neck 05/29/2023. Conventional angiography 05/30/2023. CLINICAL INDICATIONS: 67 years Female evaluate aneurysm; TECHNIQUE: A series of transaxial multislice computerized tomographic images are obtained with helical technique from top of aortic arch to vertex following bolus intravenous administration of nonionic contrast. Axial thin section source images, as well as sagittal and coronal thin section reformats, were provided at the scanner. Additional multiplanar and 3D reconstructions were provided. CONTRAST: iohexol (OMNIPAQUE) 350 MG/ML injection 1-171 mL; Route of Administration: Intravenous; Dose: 100 mL. FINDINGS: CT ANGIOGRAM NECK: AORTIC ARCH: Conventional anatomic origin of the great vessels. No significant stenosis. RIGHT CAROTID ARTERY: Common carotid artery is patent and normal in caliber. Internal carotid artery origin at the bifurcation is patent and normal in caliber. More distal cervical segments of the internal carotid artery are patent and normal in caliber. LEFT CAROTID ARTERY: Common carotid artery is patent and normal in caliber. Internal carotid artery origin at the bifurcation demonstrates atherosclerotic plaque, without significant stenosis. More distal cervical segments of the internal carotid artery are patent and normal in caliber. RIGHT VERTEBRAL ARTERY: Origin is patent. More distal cervical segments are patent and normal in caliber. LEFT VERTEBRAL ARTERY: Origin is patent. More distal cervical segments are patent and normal in caliber. OTHER: No dissection or pseudoaneurysm. 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 Streak and beam hardening artifact related to the coil mass obscures the surrounding structures. Residual avidly contrast opacified portion of the aneurysm projecting inferiorly from the coil mass appears similar in size to the preoperative CTA measuring 11 x 9 x 7 mm (AP by TR by CC) (series 4 image 144 and series 5 image 88), not significantly changed on direct comparison. The partially thrombosed portion of the aneurysm projecting medially from the coil mass demonstrates areas of hyperdensity peripherally and superiorly and has increased in size compared to the preoperative CTA measuring 24 x 25 x 28 mm (AP by TR by CC), previously 21 x 22 x 24 mm. INTERNAL CAROTID ARTERIES: Right ICA pipeline stent appears patent. Left intracranial ICA demonstrates atherosclerosis with mild focal stenosis in the supraclinoid segment. ANTERIOR CEREBRAL ARTERIES: The bilateral ACAs are displaced to the left due to the large thrombosed portion of the aneurysm. The ACAs appear patent. Assessment for focal stenoses is difficult due to streak and beam hardening artifact from the large coil mass. MIDDLE CEREBRAL ARTERIES: Patent and normal in caliber. POSTERIOR CEREBRAL ARTERIES: Patent and normal in caliber. VERTEBRAL ARTERIES: Focal atherosclerotic plaque in the proximal left V4 segment without significant stenosis. The right intracranial vertebral artery is patent and normal in caliber. BASILAR ARTERY: Patent. No significant stenosis. OTHER: No AVM. ADDITIONAL FINDINGS: No major incidental findings. IMPRESSION IMPRESSION: 1. 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 2. Interval increase in size of the partially thrombosed portion of the aneurysm projecting medially from the coil mass with areas of hyperdensity peripherally and superiorly compared to the preoperative CTA, concerning for persistent aneurysm filling. Residual avidly contrast opacified portion of the aneurysm projecting inferiorly from the coil mass appears similar in size to the preoperative CTA. 3. No significant stenosis of the carotid or vertebral arteries in the neck. [facility] Radiology Study observation (narrative) [facility] CT Head and CT Brain for per fusion and CT angiogram Head vessels WO and W contrast IVOrdered By: Curly Vogel on 10-16-2023 [facility] Work Phone: LYME ABon 10-16-2023 [place] Antibody Negative Normal Negative [facility] Comment on above: Performed By: #### C 7ED, RF, ANCA, YACE #### [facility] (DEFAULT) [address] [place] [id number] LYSOZYME (MURAMIDASE)on 10-06 LYSOZYME (MURAMIDASE) 7.1 mcg/mL High 2.6-6.0 [facility] Comment on above: Result Comment: ADDITIONAL INFORMATION This test was developed and its performance characteristics determined by [facility] in a manner consistent with CLIA requirements. This test has not been cleared or approved by the U.S. Food and Drug Administration. Test Performed by: [address] [address] Portfolio Mgr: Billy Patel M.D. Ph.D.; [facility]# [id number] Performed By: #### C 7ED, RF, ANCA, BARRY #### [facility] (DEFAULT) [address] [address] M TUBERCULOSIS BY QUANTIFRashid TAN 10-16-2023 M. TB Mitogen-Nil 9.97 IU/mL Normal [facility] Comment on above: Order Comment: The M . Tuberculosis antigen levels cannot be correlated to stage or degree of infection, response to therapy or likelihood for progression to active disease. Results from QuantiFERON TB Gold Plus must be used in conjunction with individual epidemiological history, current medical status, and results of other diagnostic evaluation. Performed By: #### Q FTB #### [facility] (DEFAULT) [address] [place] [id number] M. TB Nil 0.03 IU/mL Normal [facility] Comment on above: Order Comment: The M . Tuberculosis antigen levels cannot be correlated to stage or degree of infection, response to therapy or likelihood for progression to active disease. Results from QuantiFERON TB Gold Plus must be used in conjunction with individual epidemiological history, current medical status, and results of other diagnostic evaluation. Performed By: #### Q FTB #### [facility] (DEFAULT) [address] [place] [id number] M. TB TB1-Nil 0.01 IU/mL Normal [facility] Comment on above: Order Comment: The M . Tuberculosis antigen levels cannot be correlated to stage or degree of infection, response to therapy or likelihood for progression to active disease. Results from QuantiFERON TB Gold Plus must be used in conjunction with individual epidemiological history, current medical status, and results of other diagnostic evaluation. Performed By: #### Q FTB #### [facility] (DEFAULT) [address] [address] M. TB TB2-Nil 0.00 IU/mL Normal [facility] Comment on above: Order Comment: The M . Tuberculosis antigen levels cannot be correlated to stage or degree of infection, response to therapy or likelihood for progression to active disease. Results from QuantiFERON TB Gold Plus must be used in conjunction with individual epidemiological history, current medical status, and results of other diagnostic evaluation. Performed By: #### Q FTB #### [facility] (DEFAULT) [address] [place] [id number] M. Tuberculosis by Quantiferon in tube Negative Normal Negative [facility] Comment on above: Order Comment: The M . Tuberculosis antigen levels cannot be correlated to stage or degree of infection, response to therapy or likelihood for progression to active disease. Results from QuantiFERON TB Gold Plus must be used in conjunction with individual epidemiological history, current medical status, and results of other diagnostic evaluation. Performed By: #### Q FTB #### [facility] (DEFAULT) [address] [place] [address] MR Brain WO and W contrast I Von 10-16-2023 Radiology Study observation (narrative) [facility] MR Orbit WO and W contrast I Von 10-16-2023 Radiology Study observation (narrative) [facility] MRI BRAIN WITH AND WITHOUT C ONTRASTon 10-16-2023 MRI BRAIN WITH AND WITHOUT CONTRAST EXAM: MRI BRAIN WITH AND WITHOUT CONTRAST, MRI ORBITS WITH AND WITHOUT CONTRAST, 10/16/2023 23:06 PM (accession [id number]), 10/16/2023 23:07 PM (accession [id number]) COMPARISON: CT ANGIO BRAIN/NECK October 16, 2023, MRI BRAIN WITH AND WITHOUT CONTRAST October 16, 2023, MRI BRAIN (OUTSIDE IMAGE) May 29, 2023 CLINICAL INDICATIONS: 67 years Female R ICA aneurysm hx s/p coils, with blurry vision; RELEVANT CLINICAL HISTORY: TECHNIQUE: A series of multisequence, multiplanar images of the brain and orbits were obtained both before and after intravenous administration of gadolinium-based contrast using standard protocol. CONTRAST: Gadopiclenol SOLN 1-25 mL; Route of Administration: Intravenous; Dose: 9.2 mL. 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 The aneurysm sac has slightly enlarged now measuring up to 4.0 cm in oblique transverse dimension on coronal imaging, previously 2.5 cm by my measurements. This increase in size now results in more conspicuous mass effect on the optic apparatus, asymmetric to the left, and inferiorly displacing the adjacent left prechiasmatic segment of the optic nerve There is more T1 hyperintense blood products visualized within the aneurysm sac presumably secondary to flow diversion affects. There is been no significant change in surrounding vasogenic edema in the adjacent brain parenchyma adjacent to the aneurysm. Diffusion imaging shows no hyperacute, acute, or early subacute infarction. A few scattered FLAIR signal abnormalities throughout the cerebral white matter are nonspecific, but statistically most consistent with mild chronic microvascular angiopathy. There is no abnormal brain parenchymal or leptomeningeal enhancement. There is no abnormal extra-axial fluid collection. The ventricles are stable in size and morphology. There are flow voids in the larger vessels of the [place]. The visualized paranasal sinuses are clear. Small bilateral mastoid tip effusions. ORBITS: The globes are of normal contour and signal intensity. There is no orbital mass or abnormal enhancement along the course of the optic nerves, chiasm and optic tracts. There is inferior mass effect on the optic apparatus, secondary to the previously described giant aneurysm, with significant inferior deviation of the prechiasmatic segment of the left optic nerve. The intraconal and extraconal fat is within normal limits. The extraocular muscles are normal in size and signal intensity. The lacrimal glands appear normal. The orbital apices and cavernous sinuses demonstrate no abnormality. IMPRESSION: -No acute infarction. -Interval increase in size of the partially thrombosed giant aneurysmal sac as described above. This enlargement of the aneurysmal sac now results in more significant deviation of the optic apparatus. This may be potential cause of patient's visual disturbance. Clinical correlation is requested. Normal [facility] MRI ORBITS WITH AND WITHOUT CONTRASTon 10-16-2023 MRI ORBITS WITH AND WITHOUT CONTRAST EXAM: MRI BRAIN WITH AND WITHOUT CONTRAST, MRI ORBITS WITH AND WITHOUT CONTRAST, 10/16/2023 23:06 PM (accession [id number]), 10/16/2023 23:07 PM (accession [id number]) COMPARISON: CT ANGIO BRAIN/NECK October 16, 2023, MRI BRAIN WITH AND WITHOUT CONTRAST October 16, 2023, MRI BRAIN (OUTSIDE IMAGE) May 29, 2023 CLINICAL INDICATIONS: 67 years Female R ICA aneurysm hx s/p coils, with blurry vision; RELEVANT CLINICAL HISTORY: TECHNIQUE: A series of multisequence, multiplanar images of the brain and orbits were obtained both before and after intravenous administration of gadolinium-based contrast using standard protocol. CONTRAST: Gadopiclenol SOLN 1-25 mL; Route of Administration: Intravenous; Dose: 9.2 mL. 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 The aneurysm sac has slightly enlarged now measuring up to 4.0 cm in oblique transverse dimension on coronal imaging, previously 2.5 cm by my measurements. This increase in size now results in more conspicuous mass effect on the optic apparatus, asymmetric to the left, and inferiorly displacing the adjacent left prechiasmatic segment of the optic nerve There is more T1 hyperintense blood products visualized within the aneurysm sac presumably secondary to flow diversion affects. There is been no significant change in surrounding vasogenic edema in the adjacent brain parenchyma adjacent to the aneurysm. Diffusion imaging shows no hyperacute, acute, or early subacute infarction. A few scattered FLAIR signal abnormalities throughout the cerebral white matter are nonspecific, but statistically most consistent with mild chronic microvascular angiopathy. There is no abnormal brain parenchymal or leptomeningeal enhancement. There is no abnormal extra-axial fluid collection. The ventricles are stable in size and morphology. There are flow voids in the larger vessels of the [place]. The visualized paranasal sinuses are clear. Small bilateral mastoid tip effusions. ORBITS: The globes are of normal contour and signal intensity. There is no orbital mass or abnormal enhancement along the course of the optic nerves, chiasm and optic tracts. There is inferior mass effect on the optic apparatus, secondary to the previously described giant aneurysm, with significant inferior deviation of the prechiasmatic segment of the left optic nerve. The intraconal and extraconal fat is within normal limits. The extraocular muscles are normal in size and signal intensity. The lacrimal glands appear normal. The orbital apices and cavernous sinuses demonstrate no abnormality. IMPRESSION: -No acute infarction. -Interval increase in size of the partially thrombosed giant aneurysmal sac as described above. This enlargement of the aneurysmal sac now results in more significant deviation of the optic apparatus. This may be potential cause of patient's visual disturbance. Clinical correlation is requested. Normal [facility] No Panel Informationon 10-15 IMPRESSION: -No acute infarction. -Interval increase in size of the partially thrombosed giant aneurysmal sac as described above. This enlargement of the aneurysmal sac now results in more significant deviation of the optic apparatus. This may be potential cause of patient's visual disturbance. Clinical correlation is requested. OLOGY EXAM: MRI BRAIN WITH AND WITHOUT CONTRAST, MRI ORBITS WITH AND WITHOUT CONTRAST, 10/16/2023 23:06 PM (accession [id number]), 10/16/2023 23:07 PM (accession [id number]) COMPARISON: CT ANGIO BRAIN/NECK October 16, 2023, MRI BRAIN WITH AND WITHOUT CONTRAST October 16, 2023, MRI BRAIN (OUTSIDE IMAGE) May 29, 2023 CLINICAL INDICATIONS: 67 years Female R ICA aneurysm hx s/p coils, with blurry vision; RELEVANT CLINICAL HISTORY: TECHNIQUE: A series of multisequence, multiplanar images of the brain and orbits were obtained both before and after intravenous administration of gadolinium-based contrast using standard protocol. CONTRAST: Gadopiclenol SOLN 1-25 mL; Route of Administration: Intravenous; Dose: 9.2 mL. 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 The aneurysm sac has slightly enlarged now measuring up to 4.0 cm in oblique transverse dimension on coronal imaging, previously 2.5 cm by my measurements. This increase in size now results in more conspicuous mass effect on the optic apparatus, asymmetric to the left, and inferiorly displacing the adjacent left prechiasmatic segment of the optic nerve There is more T1 hyperintense blood products visualized within the aneurysm sac presumably secondary to flow diversion affects. There is been no significant change in surrounding vasogenic edema in the adjacent brain parenchyma adjacent to the aneurysm. Diffusion imaging shows no hyperacute, acute, or early subacute infarction. A few scattered FLAIR signal abnormalities throughout the cerebral white matter are nonspecific, but statistically most consistent with mild chronic microvascular angiopathy. There is no abnormal brain parenchymal or leptomeningeal enhancement. There is no abnormal extra-axial fluid collection. The ventricles are stable in size and morphology. There are flow voids in the larger vessels of the [place]. The visualized paranasal sinuses are clear. Small bilateral mastoid tip effusions. ORBITS: The globes are of normal contour and signal intensity. There is no orbital mass or abnormal enhancement along the course of the optic nerves, chiasm and optic tracts. There is inferior mass effect on the optic apparatus, secondary to the previously described giant aneurysm, with significant inferior deviation of the prechiasmatic segment of the left optic nerve. The intraconal and extraconal fat is within normal limits. The extraocular muscles are normal in size and signal intensity. The lacrimal glands appear normal. The orbital apices and cavernous sinuses demonstrate no abnormality. RADIOLOGY Erin Lobato MD - 10/16/2023 EXAM: MRI BRAIN WITH AND WITHOUT CONTRAST, MRI ORBITS WITH AND WITHOUT CONTRAST, 10/16/2023 23:06 PM (accession [id number]), 10/16/2023 23:07 PM (accession [id number]) COMPARISON: CT ANGIO BRAIN/NECK October 16, 2023, MRI BRAIN WITH AND WITHOUT CONTRAST October 16, 2023, MRI BRAIN (OUTSIDE IMAGE) May 29, 2023 CLINICAL INDICATIONS: 67 years Female R ICA aneurysm hx s/p coils, with blurry vision; RELEVANT CLINICAL HISTORY: TECHNIQUE: A series of multisequence, multiplanar images of the brain and orbits were obtained both before and after intravenous administration of gadolinium-based contrast using standard protocol. CONTRAST: Gadopiclenol SOLN 1-25 mL; Route of Administration: Intravenous; Dose: 9.2 mL. 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 The aneurysm sac has slightly enlarged now measuring up to 4.0 cm in oblique transverse dimension on coronal imaging, previously 2.5 cm by my measurements. This increase in size now results in more conspicuous mass effect on the optic apparatus, asymmetric to the left, and inferiorly displacing the adjacent left prechiasmatic segment of the optic nerve There is more T1 hyperintense blood products visualized within the aneurysm sac presumably secondary to flow diversion affects. There is been no significant change in surrounding vasogenic edema in the adjacent brain parenchyma adjacent to the aneurysm. Diffusion imaging shows no hyperacute, acute, or early subacute infarction. A few scattered FLAIR signal abnormalities throughout the cerebral white matter are nonspecific, but statistically most consistent with mild chronic microvascular angiopathy. There is no abnormal brain parenchymal or leptomeningeal enhancement. There is no abnormal extra-axial fluid collection. The ventricles are stable in size and morphology. There are flow voids in the larger vessels of the [place]. The visualized paranasal sinuses are clear. Small bilateral mastoid tip effusions. ORBITS: The globes are of normal contour and signal intensity. There is no orbital mass or abnormal enhancement along the course of the optic nerves, chiasm and optic tracts. There is inferior mass effect on the optic apparatus, secondary to the previously described giant aneurysm, with significant inferior deviation of the prechiasmatic segment of the left optic nerve. The intraconal and extraconal fat is within normal limits. The extraocular muscles are normal in size and signal intensity. The lacrimal glands appear normal. The orbital apices and cavernous sinuses demonstrate no abnormality. IMPRESSION IMPRESSION: -No acute infarction. -Interval increase in size of the partially thrombosed giant aneurysmal sac as described above. This enlargement of the aneurysmal sac now results in more significant deviation of the optic apparatus. This may be potential cause of patient's visual disturbance. Clinical correlation is requested. [facility] No Panel InformationOrdered By: Erin Lobato on 10-16-2023 [facility] Work Phone: RHEUMATOID FACTOROrdered By: Todd Rueda on 10-16-2023 Interpretation and review of laboratory results Normal [facility] Rheumatoid factor Qn NINF [facility] RHEUMATOID FACTORon 10-16-19 Rheumatoid Factor <10 Normal <=14 [facility] Comment on above: Performed By: #### C 7ED, RF, ANCA, YACE #### [facility] (DEFAULT) [address] [place] [address] Absolute lymphocyte countOrd ered By: Vince Delatorre on 10-09-2023 Lymphocytes Auto (Unsp spec) [#/Vol] 1.68 10*3/uL 0.83-4.51 [facility] Activated partial thrombopla stin time (aPTT) in platelet poor plasma by coagulation aOrdered By: Vince Delatorre on 10-09-2023 aPTT Coag (PPP) [Time] 35.0 s 24.1-36.2 [facility] Automated lymphocyte count a s percentage of total leukocytesOrdered By: Vince Delatorre on 10-09-2023 Lymphocytes/100 WBC Auto (Unsp spec) 30.5 % 19-41 [facility] Basic Metabolic Profile (BMP )on 10-09-2023 BUN/CRE 14.6 RATIO Normal 10-20 [facility] Comment on above: Performed By: #### L 500.2500, L100.0100, L300.3900, L300.4310 #### [facility] [address] [place], [address] CA,Total 9.8 mg/dL Normal 8.5-10.1 [facility] Comment on above: Performed By: #### L 500.2500, L100.0100, L300.3900, L300.4310 #### [facility] [address] [place], [address] Chloride [Moles/Vol] 106 mmol/L Normal 98-107 [facility] Comment on above: Performed By: #### L 500.2500, L100.0100, L300.3900, L300.4310 #### [facility] [address] [place], [address] CO2 [Moles/Vol] 27.0 mmol/L Normal 21.0-32.0 [facility] Comment on above: Performed By: #### L 500.2500, L100.0100, L300.3900, L300.4310 #### [facility] [address] [place], [address] Creatinine [Mass/Vol] 0.82 mg/dL Normal 0.55-1.02 [facility] Comment on above: Result Comment: The validity of the calculated GFR GFRAA in patients over 70 years has not been determined. Clinical correlation is essential. Performed By: #### L 500.2500, L100.0100, L300.3900, L300.4310 #### [facility] [address] [place], [address] ECRCL 76.11 ml/min Normal [facility] Comment on above: Performed By: #### L 500.2500, L100.0100, L300.3900, L300.4310 #### [facility] [address] [place], [address] EST GFR - AA 89 mL/min Normal >60 [facility] Comment on above: Result Comment: Afri can Cymraes GFR Calc Performed By: #### L 500.2500, L100.0100, L300.3900, L300.4310 #### [facility] [address] [place], [address] GAP 5 Normal 5-15 [facility] Comment on above: Performed By: #### L 500.2500, L100.0100, L300.3900, L300.4310 #### [facility] [address] [place], [address] GFR/1.73 sq M.predicted among non-blacks MDRD (S/P/Bld) [Vol rate/Area] 74 mL/min/{1.73_m2} Normal >60 [facility] Comment on above: Result Comment: Non- GFR Calc Performed By: #### L 500.2500, L100.0100, L300.3900, L300.4310 #### [facility] [address] [place], [address] Glucose [Mass/Vol] 99 mg/dL Normal 74-106 [facility] Comment on above: Performed By: #### L 500.2500, L100.0100, L300.3900, L300.4310 #### [facility] [address] [place], [address] Potassium [Moles/Vol] 4.2 mmol/L Normal 3.5-5.1 [facility] Comment on above: Performed By: #### L 500.2500, L100.0100, L300.3900, L300.4310 #### [facility] [address] [place], [address] Sodium [Moles/Vol] 138 mmol/L Normal 136-145 [facility] Comment on above: Performed By: #### L 500.2500, L100.0100, L300.3900, L300.4310 #### [facility] [address] [place], [address] Urea nitrogen [Mass/Vol] 12 mg/dL Normal 7-18 [facility] Comment on above: Performed By: #### L 500.2500, L100.0100, L300.3900, L300.4310 #### [facility] [address] [place], [address] Basophil percentageOrdered B y: Vince Delatorre on 10-09-2023 Basophils/100 WBC (Bld) 0.7 % 0-1 [facility] Chloride [Moles/Vol] 106 mmol/L 98-107 [facility] Eosinophils/100 WBC (Bld) 3.3 % 0-5 [facility] Glucose [Mass/Vol] 99 mg/dL 74-106 [facility] Hemoglobin (Bld) [Mass/Vol] 14.9 g/dL 12.0-15.0 [facility] Monocytes/100 WBC (Bld) 9.3 % 0-10 [facility] Neutrophils (Bld) [#/Vol] 3.1 10*3/uL 2.0-7.7 [facility] Neutrophils/100 WBC (Bld) 56.0 % 47-70 [facility] Potassium [Moles/Vol] 4.2 mmol/L 3.5-5.1 [facility] Sodium [Moles/Vol] 138 mmol/L 136-145 [facility] WBC (Bld) [#/Vol] 5.5 10*3/uL 4.4-11.0 [facility] CBC W/Diff, Automatedon 05-0 -2023 Absolute Lymph 1.68 X10 3/uL Normal 0.83-4.51 [facility] Comment on above: Performed By: #### L 500.2500, L100.0100, L300.3900, L300.4310 #### [facility] [address] [place], [address] Absolute Neut 3.1 X10 3/uL Normal 2.0-7.7 [facility] Comment on above: Performed By: #### L 500.2500, L100.0100, L300.3900, L300.4310 #### [facility] [address] [place], [address] Basophils/100 WBC (Bld) 0.7 % Normal 0-1 [facility] Comment on above: Performed By: #### L 500.2500, L100.0100, L300.3900, L300.4310 #### [facility] [address] [place], [address] Eosinophils/100 WBC (Bld) 3.3 % Normal 0-5 [facility] Comment on above: Performed By: #### L 500.2500, L100.0100, L300.3900, L300.4310 #### [facility] [address] [place], [address] Erythrocyte distribution width (RBC) [Ratio] 13.4 % Normal 11.6-14.6 [facility] Comment on above: Performed By: #### L 500.2500, L100.0100, L300.3900, L300.4310 #### [facility] [address] [place], [address] Hematocrit (Bld) [Volume fraction] 45.3 % Normal 37-47 [facility] Comment on above: Performed By: #### L 500.2500, L100.0100, L300.3900, L300.4310 #### [facility] [address] [place], [address] Hemoglobin (Bld) [Mass/Vol] 14.9 g/dL Normal 12.0-15.0 [facility] Comment on above: Performed By: #### L 500.2500, L100.0100, L300.3900, L300.4310 #### [facility] [address] [place], [address] IG% 0.200 Normal 0.0-0.9 [facility] Comment on above: Result Comment: IG% - Immature Granulocytes (promyelocytes, myelocytes and metamyelocytes) > 1% indicates that a LEFT SHIFT is Present. Performed By: #### L 500.2500, L100.0100, L300.3900, L300.4310 #### [facility] [address] [place], [address] Lymphocytes/100 WBC (Bld) 30.5 % Normal 19-41 [facility] Comment on above: Performed By: #### L 500.2500, L100.0100, L300.3900, L300.4310 #### [facility] [address] [place], [address] MCH (RBC) [Entitic mass] 28.6 pg Normal 27.0-32.0 [facility] Comment on above: Performed By: #### L 500.2500, L100.0100, L300.3900, L300.4310 #### [facility] [address] [place], [address] MCHC (RBC) [Mass/Vol] 32.9 g/dL Normal 32-36 [facility] Comment on above: Performed By: #### L 500.2500, L100.0100, L300.3900, L300.4310 #### [facility] [address] [place], [address] MCV (RBC) [Entitic vol] 86.9 fL Normal 81-99 [facility] Comment on above: Performed By: #### L 500.2500, L100.0100, L300.3900, L300.4310 #### [facility] [address] [place], [address] Monocytes/100 WBC (Bld) 9.3 % Normal 0-10 [facility] Comment on above: Performed By: #### L 500.2500, L100.0100, L300.3900, L300.4310 #### [facility] [address] [place], [address] Neutrophils/100 WBC (Bld) 56.0 % Normal 47-70 [facility] Comment on above: Performed By: #### L 500.2500, L100.0100, L300.3900, L300.4310 #### [facility] [address] [place], [address] Nucleated RBC (Bld) [#/Vol] 0 10*3/uL Normal 0-5 [facility] Comment on above: Performed By: #### L 500.2500, L100.0100, L300.3900, L300.4310 #### [facility] [address] [place], [address] Platelet mean volume (Bld) [Entitic vol] 9.6 fL Normal 6.2-12.0 [facility] Comment on above: Performed By: #### L 500.2500, L100.0100, L300.3900, L300.4310 #### [facility] [address] [place], [address] Platelets (Bld) [#/Vol] 223 10*3/uL Normal 150-450 [facility] Comment on above: Performed By: #### L 500.2500, L100.0100, L300.3900, L300.4310 #### [facility] [address] [place], [address] RBC (Bld) [#/Vol] 5.21 10*6/uL Normal 4.2-5.4 [facility] Comment on above: Performed By: #### L 500.2500, L100.0100, L300.3900, L300.4310 #### [facility] [address] [place], [address] RDW SD 42.7 fl Normal 35.1-43.9 [facility] Comment on above: Performed By: #### L 500.2500, L100.0100, L300.3900, L300.4310 #### [facility] [address] [place], [address] WBC (Bld) [#/Vol] 5.5 10*3/uL Normal 4.4-11.0 [facility] Comment on above: Performed By: #### L 500.2500, L100.0100, L300.3900, L300.4310 #### [facility] [address] [place], [address] CTA Head W/WO Contraston CTA Head W/WO Contrast [facility] Imaging Services [address] [place] [address] CTA Head W/WO Contrast MR#: [id number] Acct: [id number] Name: ILEANA LEONE Rep #: [id number] : 1955 F 67 From: Anthony eisenberg MD PCP: KRISTIAN Lockwood Status: [facility] ER Study: CTA Head W/WO Contrast Date of Exam: 10/09/23 Exam# [id number] Ordering Dr: Vince Delatorre DO [id number] STUDY: CT BRAIN WITH AND WITHOUT CONTRAST REASON FOR EXAM: Female, 67 years old. Cerebral aneurysm. History of prior coil embolization. Altered vision. RADIATION DOSAGE (If Supplied By Facility): CTDIvol = ( 27.18 ) mGy, DLP = ( 1203.75 ) mGycm TECHNIQUE: Transaxial CT imaging of the brain was performed pre and post contrast administration. The examination was performed with intravenous administration of IV 100mL Isovue-370. Individualized dose optimization techniques were used for this CT. COMPARISON: Comparison is made with prior study dated May 29, 2023. FINDINGS: Normal soft tissue structures. Normal calvarium. Normal size ventricles and extra-axial spaces for the patient''s age. Normal white matter tracts of the cerebral hemispheres. Normal basal ganglia and thalami. Normal brainstem. Normal cerebellum. 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 No contrast-enhancement is seen at this time. At this time however, there is evidence of surgical coils along its''s anterior lateral aspect of the aneurysm with the streak artifact. Anterior to the coils, there is a persistent 6.5 mm x 6.2 mm aneurysm. Significant mass effect and deformity of the fourth and third ventricle persists. There are no findings of an acute ischemic infarction. Normal visualized paranasal sinuses. CT/CTA Head W/WO Contrast IMPRESSION: Persistent lobulated aneurysm involving the supraclinoid carotid artery on the right side with evidence of surgical coils. There is no evidence of flow within the large aneurysm at this time following IV contrast material. Persistent 6.5 mm x 6.2 mm aneurysm along the anterior lateral aspect of the coil placement. Electronically Signed: Anthony Luna MD at 11:16 EDT , CC: Dr. Vince Delatorre DO; KRISTIAN Lockwood Roving Technician: Signed Normal [facility] Determination of erythrocyte mean corpuscular volume (MCV)Ordered By: Vince Delatorre on 10-09-2023 MCV (RBC) [Entitic vol] 86.9 fL 81-99 [facility] Emergency Department Summary on 10-09-2023 Emergency Department Summary [facility] Medical Records Department [address] [place] [address] Emergency Department Summary 10/09/23 MR#: [id number] Acct: [id number] Name: ILEANA LEONE Rep #: [id number] : 1955 67 From: Vince Delatorre DO PCP: KRISTIAN Lockwood Status:DEP ER Location: ED HPI History of Present Illness Chief Complaint: Vision Prob Informant: patient Onset/Context/Timing Onset: Weeks (1) Context: Sudden Onset Timing: Continuous Quality: Blurry, foggy Location: Both eyes Worsened by: Nothing Relieved by: Nothing Narrative Narrative: Patient presents with worsening vision over the past week. Patient states it is more blurry and foggy. Patient states it is in both eyes. Patient states nothing makes it better and nothing makes it worse. Patient had surgery for cerebral aneurysm that was diagnosed in May of this year. Patient states her vision was blurry at that time and has been constant since that time. Patient states that over the last week however has gotten worse. Patient denies any headaches. Patient denies any nausea or vomiting. Patient denies any fevers or chills. [facility] Medical History (Updated 10/09/23 @ 12:[address] Vince Delatorre DO) A-fib Essential (primary) hypertension GERD (gastroesophageal reflux disease) Glaucoma Hyperlipidemia Obesity Paroxysmal atrial fibrillation Home Medications Adrenal 200 mg PO DAILY supplement 04/30/16 [History Last Taken 07/08/16] multivitamin 1 ea PO DAILY 04/30/16 [History Last Taken 07/08/16] lactobacillus combination no.8 3 billion cell capsule (Adult Probiotic) 3,000 mmu cells PO DAILY 09/22/18 [History Last Taken Unknown] calcium carb-ergocalciferol (vit D2) 500 mg-125 unit tablet 1 tab PO TID 09/19/19 [History Last Taken Unknown] latanoprost 0.005 % eye drops 1 drp ophthalmic (eye) DAILY 09/19/19 [History Last Taken Unknown] simvastatin 10 mg tablet 10 mg PO QHS 09/19/19 [History Last Taken Unknown] flecainide 50 mg tablet See Rx Instructions .Route .COMPLEX #180 tabs 04/08/23 [Rx Last Taken Unknown] brimonidine 0.2 %-timolol 0.5 % eye drops 1 drp ophthalmic (eye) Q12H 05/29/23 [History Last Taken Unknown] apixaban 5 mg tablet (Eliquis) See Rx Instructions .Route .COMPLEX #180 tabs 08/03/23 [Rx Last Taken Unknown] aspirin 81 mg capsule 81 mg PO DAILY 10/09/23 [History Last Taken Unknown] dorzolamide 22.3 mg-timolol 6.8 mg/mL eye drops 1 drp ophthalmic (eye) BID 10/09/23 [History Last Taken Unknown] metoprolol succinate 50 mg tablet,extended release 24 hr 25 mg PO DAILY 10/09/23 [History Last Taken Unknown] Allergy/AdvReac Type Severity Reaction Status Date / Time lisinopril Allergy Unknown Verified 10/09/23 09:04 silver sulfadiazine Allergy Unknown Verified 10/09/23 09:04 [facility] Family History Father Hypertension Diabetes Mother Hypertension Cancer lung cancer Brother Hypertension Surgical History (Updated 10/09/23 @ 09:[address] Vince Delatorre DO) History of cholecystectomy History of left heart catheterization (05/05/16) S/P coil embolization of cerebral aneurysm Social History Smoking Status: Former smoker alcohol intake: never substance use type: does not use caffeine: Yes Type: coffee Number of servings: 1 eating out: 1-3 times/week what type of physical activity do you participate in: other details: fit board frequency: daily duration: 30-45 minutes/day seatbelt use: always do you feel safe at home: Yes ROS ROS ED Constitutional Constitutional ED: Denies chills or fever(s) Eyes Eyes: Reports blurry vision bilateral and change in vision bilateral ENT ENT ED: Denies rhinorrhea or sore throat Cardiovascular Cardiovascular: Denies chest pain or palpitations Respiratory/Chest Respiratory/Chest: Denies cough or dyspnea Gastrointestinal Gastrointestinal: Denies nausea or vomiting Genitourinary Genitourinary ED: Denies dysuria or hematuria Musculoskeletal Musculoskeletal: Denies back pain or neck pain Integumentary Denies abscess or rash Neurologic Neurologic: Denies headache(s) or weakness Allergic/Immunologic Allergic/Immunologic ED: Denies mouth swelling or urticaria EXAM Physical Exam Const Vital Signs: 10/09/23 09:03 10/09/23 10:03 10/09/23 11:00 Temperature 97.3 F L Temperature Source Temporal Pulse Rate 72 62 72 Respiratory Rate 14 16 16 Blood Pressure 171/81 H 146/66 H 141/59 H Blood Pressure Mean 111 92 86 Pulse Ox 99 97 98 Oxygen Delivery Method Room Air Room Air 10/09/23 12:00 Temperature Temperature Source Pulse Rate 81 Respiratory Rate 16 Blood Pressure 134/63 H Blood Pressure Mean 86 Pulse Ox 97 Oxygen (more content not included)... Normal [facility] Erythrocyte distribution wid th ratioOrdered By: Vince Delatorre on 10-09-2023 Erythrocyte distribution width (RBC) [Ratio] 13.4 % 11.6-14.6 [facility] Erythrocyte distribution wid th standard deviationOrdered By: Vince Delatorre on 10-09-2023 Erythrocyte distribution width (RBC) [Entitic vol] 42.7 fL 35.1-43.9 [facility] Hematocrit Auto (Bld) [Volum e fraction]Ordered By: Vince Delatorre on 10-09-2023 Hematocrit (Bld) [Volume fraction] 45.3 % 37-47 [facility] Immature granulocytes/100 WB C Auto (Bld)Ordered By: Vince Delatorre on 10-09-2023 Immature granulocytes/100 WBC (Bld) 0.200 % 0.0-0.9 [facility] Comment on above: IG% - Immature Granu locytes (promyelocytes, myelocytes and metamyelocytes) > 1% indicates that a LEFT SHIFT is Present. Laboratory - Chemistry and C hemistry - challengeOrdered By: Vince Delatorre on 10-09-2023 CO2 [Moles/Vol] 27.0 mmol/L 21.0-32.0 [facility] Urea nitrogen/Creatinine [Mass ratio] 14.6 mg/mg 10-20 [facility] Laboratory - CoagulationOrde red By: Vince Delatorre on 10-09-2023 INR Coag (Bld) [Relative time] 1.1 {INR} [facility] PT Coag (PPP) [Time] 14.1 s 11.7-14.9 [facility] Laboratory - Hematology and Cell countsOrdered By: Vince Delatorre on 10-09-2023 MCH (RBC) [Entitic mass] 28.6 pg 27.0-32.0 [facility] MCHC (RBC) [Mass/Vol] 32.9 g/dL 32-36 [facility] Nucleated RBC/100 WBC (Bld) [Ratio] 0 % 0-5 [facility] Platelet mean volume (Bld) [Entitic vol] 9.6 fL 6.2-12.0 [facility] Platelets (Bld) [#/Vol] 223 10*3/uL 150-450 [facility] No Panel InformationOrdered By: Vince Delatorre on 10-09-2023 Estimated Creatinine Clearance Calc 76.11 ml/min [facility] Estimated GFR (MDRD) Amer 89 mL/min >60 [facility] Comment on above: GFR Calc Estimated GFR (MDRD) Non-Af Amer 74 mL/min >60 [facility] Comment on above: Non- GFR Calc Partial Thromboplast Timeon 10-09-2023 aPTT Coag (Bld) [Time] 35.0 s Normal 24.1-36.2 [facility] Comment on above: Performed By: #### L 500.2500, L100.0100, L300.3900, L300.4310 ####[facility] [id number] [place], [address] Prothrombin Time w/INRon INR Coag (PPP) [Relative time] 1.1 {INR} Normal [facility] Comment on above: Performed By: #### L 500.2500, L100.0100, L300.3900, L300.4310 ####[facility] [id number] [place], [address] PT Coag (PPP) [Time] 14.1 s Normal 11.7-14.9 [facility] Comment on above: Performed By: #### L 500.2500, L100.0100, L300.3900, L300.4310 ####[facility] [id number] [place], [address] RBC Auto (Bld) [#/Vol]Ordere d By: Vince Delatorre on 10-09-2023 RBC (Bld) [#/Vol] 5.21 10*6/uL 4.2-5.4 [facility] Serum or plasma calcium na urement (mass/volume)Ordered By: Vince Delatorre on 10-09-2023 Calcium [Mass/Vol] 9.8 mg/dL 8.5-10.1 [facility] Serum or plasma creatinine m easurement (mass/volume)Ordered By: Vince Delatorre on 10-09-2023 Creatinine [Mass/Vol] 0.82 mg/dL 0.55-1.02 [facility] Comment on above: The validity of the calculated GFR & GFRAA in patients over 70 years has not been determined. Clinical correlation is essential. Serum or plasma urea nitroge n measurement (mass/volume)Ordered By: Vince Delatorre on 10-09-2023 Urea nitrogen [Mass/Vol] 12 mg/dL 7-18 [facility] Thin prep Papanicolaou smear with manual screeningOrdered By: Vince Delatorre on 10-09-2023 Thin prep Papanicolaou smear with manual screening 5 5-15 [facility] CV ECHO COMPLETEon 4 CV ECHO COMPLETE [place] [address] Patient: ILEANA LEONE Phone#: : [phone] Age: 67 Gender: F Pt. Type: Out Account: [id number] Location: Ordering: DARIUS HAYNES Exam Date: 09/25/2023/8:58 Family Phys: GANGA MOY Charge Code: 111792 Physician: White Order #: [id number] Dose#: PROCEDURE: ECHOCARDIOGRAM WITH DOPPLER AND COLOR FLOW HISTORY: Patient is a 61-year-old female with history of AFib INDICATIONS: Atrial fibrillation COMPARISON: None. TECHNIQUE: A 2-D ultrasound, color spectral Doppler and M-mode evaluation of the heart and great vessels. PATIENT MEASUREMENTS: Height (in.): 65 BSA: 2.0 Weight (lbs.): 200 BP: 129/79 Delivery Department Supervisor: JERICHO M MODE 2D MEASUREMENTS AND CALCULATIONS: LVIDd: 4.6 cm LVIDs: 3.0 cm IVSd: 0.8 cm LVPWd: 0.8 cm LVOT diam: 2.0 cm FS: 34 % Ao Root diam: 2.99 cm LA diam: 4.0 cm LA Volume Index: 28 mL/m2 LA A4 Area: 18.72 cm2 RA A4 Area: 17.3 cm2 RVDd: 3.71 cm TAPSE: 21 mm DOPPLER MEASUREMENTS AND CALCULATIONS MITRAL MV E MAX john: 0.70 m/s MV A MAX john: 0.56 m/s MV E-A ratio: 1.25 Lat Peak E' John 10 cm/sec Septal Peak E' JOHN 9 cm/sec E/E' lateral 7 E/E' medial 8 Continued Report - Page 2 of 3 Patient: ILEANA LEONE Phone#: : [phone] Age: 67 Gender: F Pt. Type: Out Account: [id number] Location: Ordering: DARIUS HAYNES Exam Date: 09/25/2023/8:58 Family Phys: GANGA WESTBROOKER Charge Code: [id number] Physician: White Order #: [id number] Dose#: AORTIC Ao V2 max: 1.40 m/s Ao max P.88 mm[Hg] LV V1 Max 1.00 m/s LV V1 Max PG 4.01 mm[Hg] PULMONIC PA V2 Max 0.83 m/s PA Max PG 2.79 mm[Hg] TRICUSPID TR Max John 2.58 m/s TR max PG 26.70 mm[Hg] RVSP 30 mm Hg 2D/M-MODE AND COLOR FLOW LEFT VENTRICLE: Left ventricle is normal in size and thickness. Systolic ejection fraction is 55-60%. There are no regional wall motion abnormality seen. Diastolic function is normal. WALL MOTION: 1 - Basal anterior: Normal. 7 - Mid anterior: Normal. 13 - Apical anterior: Normal. 2 - Basal anteroseptal: Normal. 8 - Mid anteroseptal: Normal. 14 - Apical septal: Normal. 3 - Basal inferoseptal: Normal. 9 - Mid inferoseptal: Normal. 15 - Apical inferior: Normal. 4 - Basal inferior: Normal. 10-Mid inferior: Normal. 16 - Apical lateral: Normal. 5 - Basal inferolateral: Normal. 11-Mid inferolateral: Normal. 6 - Basal anterolateral: Normal. 12-Mid anterolateral: Normal. RIGHT VENTRICLE: Right ventricle is normal in size and systolic function LEFT ATRIUM: Left atrium is normal in size. RIGHT ATRIUM: Right atrium is normal size ATRIAL SEPTUM: There is no large interatrial shunt seen. PFO was not assessed. MITRAL VALVE: Mitral valve appears normal structure. There is trivial regurgitation and no stenosis seen. TRICUSPID VALVE: Tricuspid valve is normal structure. There is trivial regurgitation and no stenosis seen AORTIC VALVE: Aortic valve is trileaflet. There is no regurgitation or stenosis seen. PULMONIC VALVE: Pulmonic valve is inadequately visualized. Doppler shows trivial regurgitation and no stenosis seen AORTIC ROOT: Aortic root is normal in size. AORTIC ARCH: Aortic arch normal in size. DESC THORACIC AORTA: Descending aorta is normal in size. Doppler shows normal systolic diastolic IVC/SVC: IVC is normal size with more than 50% collapse of inspiration. Estimated right atrial pressure is 3 mm Hg PULMONARY VEINS: Normal pulmonic vein flow PERICARDIUM: There is no pericardial effusion seen. Continued Report - Page 3 of 3 Patient: ILEANA LEONE Phone#: : [phone] Age: 67 Gender: F Pt. Type: Out Account: [id number] Location: Ordering: DARIUS HAYNES Exam Date: 09/25/2023/8:58 Family Phys: GANGA MOY Charge Code: [id number] Physician: White Order #: [id number] Dose#: CONCLUSION: 1. Left ventricle is normal in size and thickness. Systolic ejection fraction is 55-60% with normal wall motion. 2. There are no significant valvular dysfunction seen 3. Right ventricle is normal in size and systolic function 4. Estimated right ventricular systolic pressure is 30 mm Hg. Dictated by: DARIUS HAYNES MD on 09/25/2023 at 10:02 Approved by: DARIUS HAYNES MD on 09/25/2023 at 10:12 Normal [facility] CBC,PLATELETSon 05-31-2023 Erythrocyte distribution width (RBC) [Ratio] 13.8 % 10.8 - 14.9 % [facility] Hematocrit (Bld) [Volume fraction] 39.1 % 34.9 - 44.3 % [facility] Hemoglobin (Bld) [Mass/Vol] 13.1 g/dL 11.4 - 15.2 g/dL [facility] Interpretation and review of laboratory results Normal [facility] MCH (RBC) [Entitic mass] 28.4 pg 25.9 - 33.9 pg [facility] MCHC (RBC) [Mass/Vol] 33.5 g/dL 31.4 - 35.9 g/dL [facility] MCV (RBC) [Entitic vol] 84.6 fL 79.6 - 97.7 fL [facility] Platelet mean volume (Bld) [Entitic vol] 10.1 fL 8.5 - 12.2 fL [facility] Platelets (Bld) [#/Vol] 177 10*3/uL 150 - 393 K/uL [facility] RBC (Bld) [#/Vol] 4.62 10*6/uL [facility] WBC (Bld) [#/Vol] 8.20 10*3/uL 3.99 - 11. 19 K/uL [facility] CHEM 7 (LYTES,BUN,CREA,GLUC) Ordered By: Freddie Ratliff on 05-31-2023 Anion gap [Moles/Vol] 14 mmol/L 7 - 17 mmol/L [facility] Chloride [Moles/Vol] 113 mmol/L High 98 - 10 8 mmol/L [facility] CO2 [Moles/Vol] 17 mmol/L Low 21 - 31 mmol/L [facility] Creatinine [Mass/Vol] 0.53 mg/dL 0.50 - 1.20 mg/dL [facility] eGFR, CKD-EPI, Female - PINF [facility] Comment on above: Reported eGFR is bas ed on the CKD-EPI 2020 equation using creatinine, age, and sex. Glucose [Mass/Vol] 142 mg/dL High 70 - 99 mg/dL [facility] Interpretation and review of laboratory results Abnormal [facility] Osmolality Calc [Osmolality] 294 [facility] Potassium [Moles/Vol] 3.3 mmol/L Low 3.5 - 5.0 mmol/L [facility] Sodium [Moles/Vol] 141 mmol/L 135 - 145 mmol/L [facility] Urea nitrogen [Mass/Vol] 6 mg/dL Low 7 - 25 mg/dL [facility] Urea nitrogen/Creatinine [Mass ratio] 11 mg/mg [facility] EXTRA MICROon 05-31-2023 [facility] GLUCOSE POCon 05-31-2023 Glucose [Mass/Vol] 99 mg/dL 70 - 99 mg/dL [facility] POC Sample Type CAPBL [facility] Test performed at address of the patient encounter. [facility] IONIZED CALCIUM, WHOLE BLOOD Ordered By: Clau Perrin on 05-31-2023 Calcium.ionized (Bld) [Moles/Vol] 4.03 mg/dL Low 4.60 - 5.30 mg/dL [facility] Interpretation and review of laboratory results Abnormal [facility] MAGNESIUMon 05-31-2023 Magnesium [Mass/Vol] 1.5 mg/dL Low 1.6 - 2 .6 mg/dL [facility] No Panel Informationon 05-31 Interpretation and review of laboratory results Abnormal [facility] PHOSPHATE, INORGANICon 05-31 Phosphate [Mass/Vol] 2.1 mg/dL Low 2.2 - 4 .6 mg/dL [facility] PT,INR,PTTon 05-31-2023 aPTT Coag (PPP) [Time] 33.6 s [facility] INR Coag (Bld) [Relative time] 1.2 {INR} High 0.9 - 1.1 [facility] Interpretation and review of laboratory results Abnormal [facility] PT Coag (PPP) [Time] 15.2 s High [facility] ABORH TYPE RECONFIRMATIONon 05-30-2023 ABO/RH(D) TYPE Positive [facility] CALCIUMon 05-30-2023 Calcium [Mass/Vol] 8.7 mg/dL 8.6 - 10. 5 mg/dL [facility] CARDIAC RHYTHM (SCANNED)on 07-31-2022 [facility] CBC AND ELECTRONIC DIFFon Basophils (Bld) [#/Vol] K/uL 0.00 - 0.15 K/uL [facility] Basophils/100 WBC (Bld) 0.3 % [facility] Differential cell count method Nom (Bld) Electronic Differential [facility] Eosinophils (Bld) [#/Vol] 0.12 10*3/uL 0.00 - 0.42 K/uL [facility] Eosinophils/100 WBC (Bld) 1.9 % [facility] Erythrocyte distribution width (RBC) [Ratio] 13.7 % 10.8 - 14.9 % [facility] Hematocrit (Bld) [Volume fraction] 43.7 % 34.9 - 44.3 % [facility] Hemoglobin (Bld) [Mass/Vol] 14.8 g/dL 11.4 - 15.2 g/dL [facility] Immature granulocytes (Bld) [#/Vol] K/uL NINF - 0.08 K/uL [facility] Immature granulocytes/100 WBC (Bld) 0.2 % [facility] Interpretation and review of laboratory results Abnormal [facility] Lymphocytes (Bld) [#/Vol] 2.01 10*3/uL 1.16 - 3.51 K/uL [facility] Lymphocytes/100 WBC (Bld) 32.5 % [facility] MCH (RBC) [Entitic mass] 29.0 pg 25.9 - 33.9 pg [facility] MCHC (RBC) [Mass/Vol] 33.9 g/dL 31.4 - 35.9 g/dL [facility] MCV (RBC) [Entitic vol] 85.5 fL 79.6 - 97.7 fL [facility] Monocytes (Bld) [#/Vol] 0.57 10*3/uL 0.22 - 0.87 K/uL [facility] Monocytes/100 WBC (Bld) 9.2 % [facility] Neutrophils (Bld) [#/Vol] 3.46 10*3/uL 1.64 - 7.28 K/uL [facility] Nucleated RBC/100 WBC (Bld) [Ratio] 0.0 % [facility] Platelet mean volume (Bld) [Entitic vol] 10.8 fL 8.5 - 12.2 fL [facility] Platelets (Bld) [#/Vol] 165 10*3/uL 150 - 393 K/uL [facility] RBC (Bld) [#/Vol] 5.11 10*6/uL High [facility] Segmented neutrophils/100 WBC (Bld) 55.9 % [facility] WBC (Bld) [#/Vol] 6.19 10*3/uL 3.99 - 11. 19 K/uL [facility] CHEM 7 (LYTES,BUN,CREA,GLUC) on 05-30-2023 Anion gap [Moles/Vol] 14 mmol/L 7 - 17 mmol/L [facility] Chloride [Moles/Vol] 108 mmol/L 98 - 10 8 mmol/L [facility] CO2 [Moles/Vol] 24 mmol/L 21 - 31 mmol/L [facility] Creatinine [Mass/Vol] 0.67 mg/dL 0.50 - 1.20 mg/dL [facility] eGFR, CKD-EPI, Female - PINF [facility] Comment on above: Reported eGFR is bas ed on the CKD-EPI 2020 equation using creatinine, age, and sex. Glucose [Mass/Vol] 110 mg/dL High 70 - 99 mg/dL [facility] Interpretation and review of laboratory results Abnormal [facility] Osmolality Calc [Osmolality] 297 [facility] Potassium [Moles/Vol] 4.3 mmol/L 3.5 - 5.0 mmol/L [facility] Sodium [Moles/Vol] 142 mmol/L 135 - 145 mmol/L [facility] Urea nitrogen [Mass/Vol] 10 mg/dL 7 - 25 mg/dL [facility] Urea nitrogen/Creatinine [Mass ratio] 15 mg/mg [facility] MAGNESIUMon 05-30-2023 Magnesium [Mass/Vol] 2.0 mg/dL 1.6 - 2 .6 mg/dL [facility] No Panel Informationon 05-30 Interpretation and review of laboratory results Normal [facility] PHOSPHATE, INORGANICon 05-30 Phosphate [Mass/Vol] 3.5 mg/dL 2.2 - 4 .6 mg/dL [facility] PT,INR,PTTon 05-30-2023 aPTT Coag (PPP) [Time] 28.7 s [facility] INR Coag (Bld) [Relative time] 1.0 {INR} 0.9 - 1.1 [facility] Interpretation and review of laboratory results Normal [facility] PT Coag (PPP) [Time] 12.6 s [facility] SCREEN: MRSA/MSSAOrdered By: Ana Lagunas on 05-30-2023 Interpretation and review of laboratory results Abnormal [facility] Methicillin Resistant S. Aureus By Pcr Negative Negative [facility] Staphylococcus Aureus By Pcr Positive Abnormal Negative [facility] This test was performed using a real time PCR assay. Results should be interpreted in conjunction with other clinical and laboratory findings. A positive result does not necessarily indicate the presence of viable organism. This test should not be used as a test of cure. For E-swab specimens, this test was developed and its performance characteristics determined by the Clinical Microbiology Laboratory at [facility]. It has not been cleared or approved by the FDA.The laboratory is regulated under CLIA as qualified to perform high-complexity testing. This test is used for clinical purposes. It should not be regarded as investigational or for research. [facility] TYPE AND SCREENon 05-30-2023 ABO/RH(D) TYPE Positive [facility] URINALYSIS REFLEX TO CULTURE PERFORMABLEon 05-30-2023 Appearance (U) Clear Clear [facility] Bacteria LM Ql (Urine sed) ABSENT ABSENT [facility] Color (U) Yellow Yellow [facility] Epithelial cells.squamous LM Ql (Urine sed) 0-2/hpf 0-2/hpf, 3-5/hpf = 1+ [facility] Glucose Test strip (U) [Mass/Vol] Negative Negative [facility] Interpretation and review of laboratory results Abnormal [facility] Ketones (U) [Mass/Vol] Negative Negative [facility] Leukocyte esterase Test strip Ql (U) Trace Abnormal Negative [facility] Nitrite Ql (U) Negative Negative [facility] pH (U) 7.0 [pH] 5.0 - 7.0 [facility] Protein (U) [Mass/Vol] Negative Negative [facility] RBC (U) [#/Vol] Negative Negative [facility] RBC LM.HPF (Urine sed) [#/Area] 3-5 Abnormal [facility] Specific gravity (U) [Rel density] 1.030 1.001 - 1.035 [facility] Urobilinogen (U) [Mass/Vol] 0.2 E.U./dL 0.2 E.U/dL, 1.0 E.U/dL [facility] WBC LM.HPF (Urine sed) [#/Area] 0 - 5 [facility] Absolute lymphocyte countOrd ered By: Godwin Wall on 05-29-2023 Lymphocytes Auto (Unsp spec) [#/Vol] 2.92 10*3/uL 0.83-4.51 [facility] Basophil percentageOrdered B y: Godwin Wall on 05-29-2023 Basophils/100 WBC (Bld) 0.8 % 0-1 [facility] Chloride [Moles/Vol] 106 mmol/L 98-107 [facility] Eosinophils/100 WBC (Bld) 3.0 % 0-5 [facility] Glucose [Mass/Vol] 111 mg/dL 74-106 [facility] Comment on above: Fasting Glucose resu lt from 100 to 125 mg/dL suggests IMPAIRED HOMEOSTASIS per A.D.A. criteria. Neutrophils (Bld) [#/Vol] 3.8 10*3/uL 2.0-7.7 [facility] Neutrophils/100 WBC (Bld) 49.0 % 47-70 [facility] Potassium [Moles/Vol] 3.8 mmol/L 3.5-5.1 [facility] Sodium [Moles/Vol] 140 mmol/L 136-145 [facility] WBC (Bld) [#/Vol] 7.8 10*3/uL 4.4-11.0 [facility] Blood erythrocytes count (nu mber/volume)Ordered By: Godwin Wall on 05-29-2023 RBC (Bld) [#/Vol] 5.66 10*6/uL 4.2-5.4 [facility] Blood hemoglobin measurement (mass/volume)Ordered By: Godwin Wall on 05-29-2023 Hemoglobin (Bld) [Mass/Vol] 15.9 g/dL 12.0-15.0 [facility] Blood lymphocytes/100 leukoc ytesOrdered By: Godwin Wall on 05-29-2023 Lymphocytes/100 WBC (Bld) 37.5 % 19-41 [facility] Blood monocytes/100 leukocyt esOrdered By: Godwni Wall on 05-29-2023 Monocytes/100 WBC (Bld) 9.4 % 0-10 [facility] Blood platelet mean volumeOr dered By: Godwin Wall on 05-29-2023 Platelet mean volume (Bld) [Entitic vol] 9.9 fL 6.2-12.0 [facility] Determination of erythrocyte mean corpuscular volume (MCV)Ordered By: Godwin Wall on 05-29-2023 MCV (RBC) [Entitic vol] 85.2 fL 81-99 [facility] Hematocrit Auto (Bld) [Volum e fraction]Ordered By: Godwin Wall on 05-29-2023 Hematocrit (Bld) [Volume fraction] 48.2 % 37-47 [facility] Laboratory - Chemistry and C hemistry - challengeOrdered By: Godwin Wall on 05-29-2023 CO2 [Moles/Vol] 29.0 mmol/L 21.0-32.0 [facility] Urea nitrogen/Creatinine [Mass ratio] 15.5 mg/mg 10-20 [facility] Laboratory - Hematology and Cell countsOrdered By: Godwin Wall on 05-29-2023 Erythrocyte distribution width (RBC) [Entitic vol] 42.4 fL 35.1-43.9 [facility] Erythrocyte distribution width (RBC) [Ratio] 13.4 % 11.6-14.6 [facility] Immature granulocytes/100 WBC (Bld) 0.300 % 0.0-0.9 [facility] Comment on above: IG% - Immature Granu locytes (promyelocytes, myelocytes and metamyelocytes) > 1% indicates that a LEFT SHIFT is Present. MCH (RBC) [Entitic mass] 28.1 pg 27.0-32.0 [facility] Nucleated RBC/100 WBC (Bld) [Ratio] 0 % 0-5 [facility] MCHC Auto (RBC) [Mass/Vol]Or dered By: Godwin Wall on 05-29-2023 MCHC (RBC) [Mass/Vol] 33.0 g/dL 32-36 [facility] No Panel InformationOrdered By: Godwin Wall on 05-29-2023 Estimated Creatinine Clearance Calc 59.28 ml/min [facility] Estimated GFR (MDRD) Amer 87 mL/min >60 [facility] Comment on above: GFR Calc Estimated GFR (MDRD) Non-Af Amer 72 mL/min >60 [facility] Comment on above: Non- GFR Calc Troponin I High Sensitivity 8 pg/mL 3.0-54.0 [facility] Comment on above: Please Note: [place] t Units and Gender Specific Reference Ranges. For more information see Policy Stat Procedure Allen High Sensitivity Troponin (TNIH) and attachments. Platelets bldOrdered By: Yogi Wall on 05-29-2023 Platelets (Bld) [#/Vol] 212 10*3/uL 150-450 [facility] Serum or plasma calcium na urement (mass/volume)Ordered By: Godwin Wall on 05-29-2023 Calcium [Mass/Vol] 9.9 mg/dL 8.5-10.1 [facility] Serum or plasma creatinine m easurement (mass/volume)Ordered By: Godwin Wall on 05-29-2023 Creatinine [Mass/Vol] 0.84 mg/dL 0.55-1.02 [facility] Comment on above: The validity of the calculated GFR & GFRAA in patients over 70 years has not been determined. Clinical correlation is essential. Serum or plasma urea nitroge n measurement (mass/volume)Ordered By: Godwin Wall on 05-29-2023 Urea nitrogen [Mass/Vol] 13 mg/dL 7-18 [facility] Thin prep Papanicolaou smear with manual screeningOrdered By: Godwin Wall on 05-29-2023 Thin prep Papanicolaou smear with manual screening 5 5-15 [facility] Absolute lymphocyte counton 05-28-2023 Lymphocytes Auto (Unsp spec) [#/Vol] 1.88 10*3/uL 0.83-4.51 [facility] Basophil percentageon 2022 Basophils/100 WBC (Bld) 0.8 % 0-1 [facility] Bilirubin [Mass/Vol] 1.10 mg/dL 0.20-1.00 [facility] Comment on above: For patients on eltr ombopag therapy, use of Dimension Allen TBIL is not recommended. Chloride [Moles/Vol] 108 mmol/L 98-107 [facility] Eosinophils/100 WBC (Bld) 3.3 % 0-5 [facility] Glucose [Mass/Vol] 103 mg/dL 74-106 [facility] Comment on above: Fasting Glucose resu lt from 100 to 125 mg/dL suggests IMPAIRED HOMEOSTASIS per A.D.A. criteria. Neutrophils (Bld) [#/Vol] 2.5 10*3/uL 2.0-7.7 [facility] Neutrophils/100 WBC (Bld) 48.5 % 47-70 [facility] Potassium [Moles/Vol] 4.5 mmol/L 3.5-5.1 [facility] Protein [Mass/Vol] 6.8 g/dL 6.4-8.2 [facility] Sodium [Moles/Vol] 141 mmol/L 136-145 [facility] WBC (Bld) [#/Vol] 5.1 10*3/uL 4.4-11.0 [facility] Blood erythrocytes count (nu mber/volume)on 05-28-2023 RBC (Bld) [#/Vol] 5.29 10*6/uL 4.2-5.4 [facility] Blood hemoglobin measurement (mass/volume)on 05-28-2023 Hemoglobin (Bld) [Mass/Vol] 14.9 g/dL 12.0-15.0 [facility] Blood lymphocytes/100 leukoc yteson 05-28-2023 Lymphocytes/100 WBC (Bld) 36.8 % 19-41 [facility] Blood monocytes/100 leukocyt eson 05-28-2023 Monocytes/100 WBC (Bld) 10.4 % 0-10 [facility] Blood platelet mean volumeon 05-28-2023 Platelet mean volume (Bld) [Entitic vol] 10.1 fL 6.2-12.0 [facility] Determination of erythrocyte mean corpuscular volume (MCV)on 05-28-2023 MCV (RBC) [Entitic vol] 86.6 fL 81-99 [facility] Hematocrit Auto (Bld) [Volum e fraction]on 05-28-2023 Hematocrit (Bld) [Volume fraction] 45.8 % 37-47 [facility] Laboratory - Chemistry and C hemistry - challengeon 05-28-2023 ALP [Catalytic activity/Vol] 74 U/L 45-117 [facility] ALT [Catalytic activity/Vol] 21 U/L 13-56 [facility] CO2 [Moles/Vol] 28.0 mmol/L 21.0-32.0 [facility] Cobalamin (Vitamin B12) [Mass/Vol] 678 pg/mL 211-911 [facility] Globulin (S) [Mass/Vol] 3.4 g/dL 2.2-4.2 [facility] Urea nitrogen/Creatinine [Mass ratio] 16.2 mg/mg 10-20 [facility] Laboratory - Hematology and Cell countson 05-28-2023 Erythrocyte distribution width (RBC) [Entitic vol] 43.8 fL 35.1-43.9 [facility] Erythrocyte distribution width (RBC) [Ratio] 13.7 % 11.6-14.6 [facility] Immature granulocytes/100 WBC (Bld) 0.200 % 0.0-0.9 [facility] Comment on above: IG% - Immature Granu locytes (promyelocytes, myelocytes and metamyelocytes) > 1% indicates that a LEFT SHIFT is Present. MCH (RBC) [Entitic mass] 28.2 pg 27.0-32.0 [facility] Nucleated RBC/100 WBC (Bld) [Ratio] 0 % 0-5 [facility] MCHC Auto (RBC) [Mass/Vol]on 05-28-2023 MCHC (RBC) [Mass/Vol] 32.5 g/dL 32-36 [facility] No Panel Informationon 05-28 Estimated GFR (MDRD) Amer 101 mL/min >60 [facility] Comment on above: GFR Calc Estimated GFR (MDRD) Non-Af Amer 83 mL/min >60 [facility] Comment on above: Non- GFR Calc Miscellaneous Test See comment [facility] Comment on above: TEST RESULT LIMITSVi tamin B2, Whole Blood 318 ug/L 137-370 Reference interval reflects Flavin Adenine Dinucleotide (FAD), that accounts for approximately 90% of the total riboflavin in whole blood. TESTING PERFORMED AT [facility]. ORIGINAL REPORT ON FILE IN LAB CONTAINS ADDITIONAL TEST SITE INFORMATION. Vitamin B6 Level 46.8 ug/L 3.4-65.2 [facility] Comment on above: Deficiency: <3.4 Mar ginal: 3.4 - 5.1 Adequate: >5.1 Whole Blood Vitamin B1 Level 157.8 nmol/L 66.5-200.0 [facility] Comment on above: Performed at: [address] [id number] Director: Saira Cruz MD, Phone: [phone] Platelets bldon 05-28-2023 Platelets (Bld) [#/Vol] 198 10*3/uL 150-450 [facility] Serum or plasma albumin na urement (mass/volume)on 05-28-2023 Albumin [Mass/Vol] 3.4 g/dL 3.2-5.0 [facility] Serum or plasma albumin/glob ulin mass ratioon 05-28-2023 Albumin/Globulin [Mass ratio] 1.0 {ratio} 0.9-2.4 [facility] Serum or plasma calcium na urement (mass/volume)on 05-28-2023 Calcium [Mass/Vol] 9.1 mg/dL 8.5-10.1 [facility] Serum or plasma creatinine m easurement (mass/volume)on 05-28-2023 Creatinine [Mass/Vol] 0.74 mg/dL 0.55-1.02 [facility] Comment on above: The validity of the calculated GFR & GFRAA in patients over 70 years has not been determined. Clinical correlation is essential. Serum or plasma folate measu rement (mass/volume)on 05-28-2023 Folate [Mass/Vol] 33.50 ng/mL 3.1-55.4 [facility] Serum or plasma urea nitroge n measurement (mass/volume)on 05-28-2023 Urea nitrogen [Mass/Vol] 12 mg/dL 7-18 [facility] Thin prep Papanicolaou smear with manual screeningon 05-28-2023 Thin prep Papanicolaou smear with manual screening 18 U/L 15-37 [facility] Thin prep Papanicolaou smear with manual screening 5 5-15 [facility] Laboratory - Chemistry and C hemistry - challengeon 01-15-2023 25-hydroxyvitamin D3 [Mass/Vol] 46.40 ng/mL Normal 30.00 - 100 ng/mL [facility], [facility], [facility]. Albumin [Mass/Vol] 3.6 g/dL Normal 3.4 - 5.0 g/dL [facility], [facility].; [facility], [facility]. Albumin [Mass/Vol] 1.0 g/dL Normal 0.9 - 1.6 [facility], [facility].; [place] [facility] ALP [Catalytic activity/Vol] 69 U/L Normal 46 - 116 U/L [facility], [facility].; [place] [facility] [facility] ALT [Catalytic activity/Vol] 18 U/L Normal 14 - 59 U/L [facility], [facility].; [place] [email or web address], [employer]. ALT No additional P-5'-P [Catalytic activity/Vol] 18 U/L Normal 14 - 59 U/L [facility], [facility].; [place] [email or web address] Anion gap [Moles/Vol] 16 mmol/L Normal 10 - 2 0 mmol/L [facility], [facility].; [place] [email or web address], [employer] AST [Catalytic activity/Vol] 19 U/L Normal 13 - 39 U/L [facility], [facility].; [place] [email or web address] Bilirubin [Mass/Vol] 0.9 mg/dL Normal 0.2 - 1 .0 mg/dL [facility], [facility].; [place] [employer] [facility] Calcium [Mass/Vol] 9.0 mg/dL Normal 8.5 - 10. 1 mg/dL [facility], [facility].; [place] [employer] [facility] Chloride [Moles/Vol] 105 mmol/L Normal 98 - 10 7 mmol/L [facility], [facility].; [place] [email or web address] Cholesterol [Mass/Vol] 173 mg/dL Normal 0 - 2 40 mg/dL [facility], [facility].; [facility], [facility]. Cholesterol in HDL [Mass or moles/Vol] 66 mg/dL Abnormal 40 - 60 mg/dL [facility].; [facility] Cholesterol in LDL [Mass/Vol] 77 mg/dL Normal 0 - 129 mg/dL [facility].; [facility], [facility] Cholesterol.total/Chol esterol in HDL [Mass ratio] 2.6 {ratio} Normal 0.0 - 5.0 [facility].; [facility] CO2 [Moles/Vol] 25.8 mmol/L Normal 21.0 - 32.0 mmol/L [facility].; [facility], [facility] Comprehensive metabolic 2000 panel CMP with eGFR Normal [facility]; [facility], [facility] Creatinine [Mass/Vol] 0.83 mg/dL Normal 0.55 - 1.02 mg/dL [facility].; [facility], [facility]. GFR/1.73 sq M.predicted among blacks MDRD (S/P/Bld) [Vol rate/Area] mL/min/{1.73_m2} Normal 60 - 999 {ML/MINUTE} [facility].; [facility], [facility]. GFR/1.73 sq M.predicted MDRD (S/P/Bld) [Vol rate/Area] mL/min/{1.73_m2} Normal 60 - 999 {ML/MINUTE} [facility], [facility].; [facility], [facility] Globulin (S) [Mass/Vol] 3.7 g/dL Normal 1.5 - 3.8 g/dL [facility].; [facility], [facility]. Glucose [Mass/Vol] 101 mg/dL Normal 74 - 106 mg/dL [facility].; [facility], [facility] Lipid 1996 panel LIPID PROFILE Normal [facility], [facility] Potassium [Moles/Vol] 4.1 mmol/L Normal 3.5 - 5.1 mmol/L [facility].; [facility], [facility] Protein [Mass/Vol] 7.3 g/dL Normal 6.4 - 8.2 g/dL [facility]; [employer]. Sodium [Moles/Vol] 143 mmol/L Normal 136 - 145 mmol/L [place] [employer].; [employer]. Triglyceride [Mass/Vol] 150 mg/dL Normal 0 - 150 mg/dL [place] [employer] [facility].; [employer], [employer]. Urea nitrogen [Mass/Vol] 12 mg/dL Normal 7 - 18 mg/dL [place] [employer].; [employer], [employer]. Urea nitrogen/Creatinine [Mass ratio] 14 {ratio} Normal 0 - 30 {ratio} [employer].; [employer] No Panel Informationon 01-15 AGE 67 {years} Normal [employer].; [employer]. THINPREP PAP AND HPV mRNA E6 /E7on 01-01-2022 CLINICAL INFORMATION: Normal [employer] Comment on above: Result Comment: PAP Performed By: #### 9 0931 #### [facility] [address] [employer] [employer]: Tirso Goel MD COMMENT Normal [employer] Comment on above: Result Comment: EXPL ANATORY NOTE: The Pap is a screening test for cervical cancer. It is not a diagnostic test and is subject to false negative and false positive results. It is most reliable when a satisfactory sample, regularly obtained, is submitted with relevant clinical findings and history, and when the Pap result is evaluated along with historic and current clinical information. Performed By: #### 9 0931 #### [facility] [place] [address] [employer] [employer]: Tirso Goel MD COMMENT: Normal [facility] Comment on above: Result Comment: Para basal cells in smears that lack maturation due to atrophy or other hormonal reasons cannot be differentiated from transformation zone cells. Accordingly, presence or absence of endocervical or transformation zone components cannot be reported in this patient. Performed By: #### 9 0931 #### [facility] [address] [employer] [employer]: Tirso Goel MD [employer] COORDINATOR: Normal See Note: [facility] Comment on above: Result Comment: Refe rence Range: ZL, CT(ASCP) CT screening location: [place] [address]. Performed By: #### 9 0931 #### [facility] [address] [employer] [employer] Setter: Tirso Goel MD HPV mRNA E6/E7 Not detected Normal Not Detected [facility] Comment on above: Result Comment: Meth odology: Sedimentationist-Mediated Amplification This assay detects E6/E7 viral messenger RNA (mRNA) from 14 high-risk HPV types (16,18,31,33,35,39,45,51,52,56,58,59,66,68). Cervical sources are required for HPV testing. If a vaginal source from a patient who has had a total hysterectomy with removal of cervix was submitted, please contact the testing laboratory for alternative testing options. For additional information, please refer to http://education.[employer]/faq/OWH478z0 (This link if provided for information/ educational purposes only.) Performed By: #### 9 0931 #### [facility] [address] [employer] [employer]ter: Tirso Goel MD INTERPRETATION/RESULT: Normal [facility] Comment on above: Result Comment: Nega tive for intraepithelial lesion or malignancy. Atrophic pattern; predominantly parabasal cells Performed By: #### 9 0931 #### [facility] [address] [employer] [employer]ter: Tirso Goel MD LMP: Normal [facility] Comment on above: Result Comment: N/A Performed By: #### 9 0931 #### [facility] [address] [employer] [employer]ter: Tirso Goel MD PREV. BX: Normal [facility] Comment on above: Result Comment: NONE Performed By: #### 9 0931 #### [facility] [address] [employer] [employer]ter: Tirso Goel MD PREV. PAP: Normal [facility] Comment on above: Result Comment: NEGA TIVE Performed By: #### 9 0931 #### [facility] [address] [employer] [employer]ter: Tirso Goel MD SOURCE: Normal [facility] Comment on above: Result Comment: Cerv ix Performed By: #### 9 0931 #### [facility] [address] [employer] [employer]ter: Tirso Goel MD STATEMENT OF ADEQUACY: Normal [facility] Comment on above: Result Comment: SATI SFACTORY FOR EVALUATION Performed By: #### 9 0931 #### [facility] [address] [employer] [employer]ter: Tirso Goel MD No Panel Informationon 12-30 [id number] SEE NOTE Normal [facility] [employer] [facility].; [facility] [employer] CLINICAL INFORMATION: SEE NOTE Normal [facility].; [employer] COMMENT: SEE NOTE Normal [facility] [employer] [facility].; [employer], [employer] COORDINATOR: SEE NOTE Normal [place] [employer] [facility].; [employer], [employer] HPV mRNA E6/E7 Not detected Normal [facility].; [employer], [employer] INTERPRETATION/RESULT: SEE NOTE Normal [facility].; [employer], [employer] LMP: SEE NOTE Normal [place] [employer] [facility].; [employer], [employer] PREV. BX: SEE NOTE Normal Daniel [employer].; [employer], [employer] PREV. PAP: SEE NOTE Normal [facility] [employer] [facility].; [employer], [employer] SOURCE: SEE NOTE Normal [place] [employer] [facility].; [employer], [employer] STATEMENT OF ADEQUACY: SEE NOTE Normal [facility] [employer].; [employer], [employer] Laboratory - Chemistry and C hemistry - challengeon 12-23-2021 Albumin [Mass/Vol] 3.8 g/dL Normal 3.4 - 5.0 g/dL [facility].; [facility]. Albumin [Mass/Vol] 1.1 g/dL Normal 0.9 - 1.6 [facility].; [facility], [facility]. ALP [Catalytic activity/Vol] 82 U/L Normal 46 - 116 U/L [facility].; [facility], [facility]. ALT [Catalytic activity/Vol] 23 U/L Normal 14 - 59 U/L [facility].; [facility], [facility]. ALT No additional P-5'-P [Catalytic activity/Vol] 23 U/L Normal 14 - 59 U/L [facility].; [facility], [facility]. Anion gap [Moles/Vol] 11 mmol/L Normal 10 - 2 0 mmol/L [facility].; [facility], [facility]. AST [Catalytic activity/Vol] 16 U/L Normal 13 - 39 U/L [facility], [facility].; [facility], [facility]. Bilirubin [Mass/Vol] 1.1 mg/dL Abnormal 0.2 - 1 .0 mg/dL [facility].; [facility], [facility]. Calcium [Mass/Vol] 9.5 mg/dL Normal 8.5 - 10. 1 mg/dL [facility].; [facility], [facility]. Chloride [Moles/Vol] 104 mmol/L Normal 98 - 10 7 mmol/L [facility].; [facility], [facility]. Cholesterol [Mass/Vol] 191 mg/dL Normal 0 - 2 40 mg/dL [facility].; [facility], [facility]. Cholesterol in HDL [Mass or moles/Vol] 65 mg/dL Abnormal 40 - 60 mg/dL [facility].; [facility], [facility]. Cholesterol in LDL [Mass/Vol] 90 mg/dL Normal 0 - 129 mg/dL [facility], [facility].; [facility], [facility]. Cholesterol.total/Chol esterol in HDL [Mass ratio] 2.9 {ratio} Normal 0.0 - 5.0 [facility], [facility].; [facility], [facility]. CO2 [Moles/Vol] 29.6 mmol/L Normal 21.0 - 32.0 mmol/L [facility].; [facility], [facility] Comprehensive metabolic 2000 panel CMP with eGFR Normal [facility]; [facility], [facility] Creatinine [Mass/Vol] 0.87 mg/dL Normal 0.55 - 1.02 mg/dL [facility].; [facility], [facility] GFR/1.73 sq M.predicted among blacks MDRD (S/P/Bld) [Vol rate/Area] mL/min/{1.73_m2} Normal 60 - 999 {ML/MINUTE} [facility].; [facility], [facility]. GFR/1.73 sq M.predicted MDRD (S/P/Bld) [Vol rate/Area] mL/min/{1.73_m2} Normal 60 - 999 {ML/MINUTE} [facility], [facility].; [facility], [facility] Globulin (S) [Mass/Vol] 3.6 g/dL Normal 1.5 - 3.8 g/dL [facility].; [facility], [facility]. Glucose [Mass/Vol] 98 mg/dL Normal 74 - 106 mg/dL [facility].; [facility], [facility]. Lipid 1996 panel LIPID PROFILE Normal [facility]; [facility], [facility] Potassium [Moles/Vol] 4.4 mmol/L Normal 3.5 - 5.1 mmol/L [facility].; [facility], [facility] Protein [Mass/Vol] 7.4 g/dL Normal 6.4 - 8.2 g/dL [facility], [facility].; [facility], [facility]. Sodium [Moles/Vol] 140 mmol/L Normal 136 - 145 mmol/L [facility], [facility].; [facility], [facility] Triglyceride [Mass/Vol] 180 mg/dL Abnormal 0 - 150 mg/dL [facility].; [facility], [facility]. Urea nitrogen [Mass/Vol] 15 mg/dL Normal 7 - 18 mg/dL [facility], [facility].; [facility], [facility] Urea nitrogen/Creatinine [Mass ratio] 17 {ratio} Normal 0 - 30 {ratio} [facility].; [employer]. No Panel Informationon 12-23 AGE 66 {years} Normal [place] [employer].; [place] [employer]. Laboratory - Chemistry and C hemistry - challengeon 12-17-2020 25-hydroxyvitamin D3 [Mass/Vol] 52.70 ng/mL Normal 30.00 - 100 ng/mL [facility].; [place] [email or web address], [employer]. Albumin [Mass/Vol] 4.0 g/dL Normal 3.4 - 5.0 g/dL [place] [employer].; [employer]. Albumin [Mass/Vol] 1.2 g/dL Normal 0.9 - 1.6 [place] [employer].; [employer]. ALP [Catalytic activity/Vol] 81 U/L Normal 46 - 116 U/L [place] [employer].; [employer], [employer]. ALT [Catalytic activity/Vol] 28 U/L Normal 14 - 59 U/L [place] [employer].; [employer]. ALT No additional P-5'-P [Catalytic activity/Vol] 28 U/L Normal 14 - 59 U/L [place] [employer].; [employer]. Anion gap [Moles/Vol] 18 mmol/L Normal 10 - 2 0 mmol/L [place] [employer].; [employer], [employer]. AST [Catalytic activity/Vol] 19 U/L Normal 13 - 39 U/L [place] [employer].; [employer], [employer]. Bilirubin [Mass/Vol] 1.3 mg/dL Abnormal 0.2 - 1 .0 mg/dL [place] [employer].; [employer], [employer]. Calcium [Mass/Vol] 9.8 mg/dL Normal 8.5 - 10. 1 mg/dL [place] [employer].; [employer], [employer]. Chloride [Moles/Vol] 104 mmol/L Normal 98 - 10 7 mmol/L [place] [employer].; [employer] Cholesterol [Mass/Vol] 201 mg/dL Normal 0 - 2 40 mg/dL [place] [employer].; [employer], [employer]. Cholesterol in HDL [Mass or moles/Vol] 69 mg/dL Abnormal 40 - 60 mg/dL [facility]; [facility] Cholesterol in LDL [Mass/Vol] 87 mg/dL Normal 0 - 129 mg/dL [facility]; [facility] Cholesterol.total/Chol esterol in HDL [Mass ratio] 2.9 {ratio} Normal 0.0 - 5.0 [facility]; [facility] CO2 [Moles/Vol] 22.8 mmol/L Normal 21.0 - 32.0 mmol/L [facility]; [facility], [facility] Comprehensive metabolic 2000 panel CMP with eGFR Normal [facility]; [facility], [facility] Creatinine [Mass/Vol] 0.82 mg/dL Normal 0.55 - 1.02 mg/dL [facility]; [facility], [facility]. GFR/1.73 sq M.predicted among blacks MDRD (S/P/Bld) [Vol rate/Area] mL/min/{1.73_m2} Normal 60 - 999 {ML/MINUTE} [facility].; [facility], [facility]. GFR/1.73 sq M.predicted MDRD (S/P/Bld) [Vol rate/Area] mL/min/{1.73_m2} Normal 60 - 999 {ML/MINUTE} [facility].; [facility], [facility]. Globulin (S) [Mass/Vol] 3.3 g/dL Normal 1.5 - 3.8 g/dL [facility].; [facility], [facility]. Glucose [Mass/Vol] 108 mg/dL Abnormal 74 - 106 mg/dL [facility].; [facility], [facility] Lipid 1996 panel LIPID PROFILE Normal [facility]; [facility], [facility] Potassium [Moles/Vol] 4.4 mmol/L Normal 3.5 - 5.1 mmol/L [facility]; [facility], [facility] Protein [Mass/Vol] 7.3 g/dL Normal 6.4 - 8.2 g/dL [facility]; [facility], [facility] Sodium [Moles/Vol] 140 mmol/L Normal 136 - 145 mmol/L [facility] Hospital[facility] [employer] [facility].; [facility] HospitalBeeminder Triglyceride [Mass/Vol] 224 mg/dL Abnormal 0 - 150 mg/dL [facility] Hospital[facility] [employer] [facility].; [facility] [employer] TSH Qn 1.72 m[IU]/L Normal 0.35 - 3.74 {uIU/ml} [facility] Hospital[facility] [employer].; [place] [employer] [facility] MR [employer] [facility] Urea nitrogen [Mass/Vol] 12 mg/dL Normal 7 - 18 mg/dL [facility] [employer] [facility].; [place] [employer] Urea nitrogen/Creatinine [Mass ratio] 15 {ratio} Normal 0 - 30 {ratio} [facility] [employer].; [place] [employer] No Panel Informationon 12-17 AGE 65 {years} Normal [facility] [employer]; [place] [employer] Laboratory - Chemistry and C hemistry - challengeon 11-17-2019 Albumin [Mass/Vol] 4.5 g/dL Normal 3.4 - 4.8 g/dL [facility] [employer]; [place] [email or web address], [employer]. Albumin [Mass/Vol] 1.6 g/dL Normal 0.9 - 1.6 [facility] [employer].; [place] [email or web address], [employer]. ALP [Catalytic activity/Vol] 61 U/L Normal 38 - 126 U/L [facility] [employer] [facility].; [place] [email or web address], [employer]. ALT [Catalytic activity/Vol] 22 U/L Normal 8 - 35 U/L [facility] [employer] [facility].; [place] [email or web address], [employer]. ALT No additional P-5'-P [Catalytic activity/Vol] 22 U/L Normal 8 - 35 U/L [facility] [employer] [facility].; [employer]. Anion gap [Moles/Vol] 14 mmol/L Normal 10 - 2 0 mmol/L [facility] [employer].; [place] [email or web address], [employer]. AST [Catalytic activity/Vol] 19 U/L Normal 13 - 39 U/L [facility], [facility].; [employer], [employer]. Bilirubin [Mass/Vol] 1.6 mg/dL Abnormal 0.0 - 1 .5 mg/dL [facility] [employer] [facility].; [place] [facility]. Calcium [Mass/Vol] 10.0 mg/dL Normal 8.6 - 10. 2 mg/dL [facility].; [facility], [facility] Chloride [Moles/Vol] 104 mmol/L Normal 98 - 10 7 mmol/L [facility].; [facility], [facility] Cholesterol [Mass/Vol] 191 mg/dL Normal 0 - 2 00 mg/dL [facility].; [facility], [facility] Cholesterol in HDL [Mass or moles/Vol] 84 mg/dL Abnormal 40 - 60 mg/dL [facility].; [facility], [facility] Cholesterol in LDL [Mass/Vol] 88 mg/dL Normal 0 - 129 mg/dL [facility]; [facility], [facility] Cholesterol.total/Chol esterol in HDL [Mass ratio] 2.3 {ratio} Normal 0.0 - 5.0 [facility]; [facility], [facility] CO2 [Moles/Vol] 27.0 mmol/L Normal 21.0 - 31.0 mmol/L [facility].; [facility], [facility] Comprehensive metabolic 2000 panel CMP with eGFR Normal [facility].; [facility], [facility] Creatinine [Mass/Vol] 0.8 mg/dL Normal 0.6 - 1.2 mg/dL [facility].; [facility], [facility]. GFR/1.73 sq M.predicted among blacks MDRD (S/P/Bld) [Vol rate/Area] mL/min/{1.73_m2} Normal 60 - 999 {ML/MINUTE} [facility], [facility].; [facility], [facility]. GFR/1.73 sq M.predicted MDRD (S/P/Bld) [Vol rate/Area] mL/min/{1.73_m2} Normal 60 - 999 {ML/MINUTE} [facility], [facility].; [facility], [facility]. Globulin (S) [Mass/Vol] 2.8 g/dL Normal 1.5 - 3.8 g/dL [facility].; [facility], [facility]. Glucose [Mass/Vol] 90 mg/dL Normal 74 - 106 mg/dL [facility].; [place] [employer] [facility]. Lipid 1996 panel LIPID PROFILE [facility] [employer].; [facility], [facility] Potassium [Moles/Vol] 4.0 mmol/L Normal 3.5 - 5.1 mmol/L [facility] Hospital[facility] [employer] [facility].; [place] [employer] [facility], [facility]. Protein [Mass/Vol] 7.3 g/dL Normal 6.4 - 8.3 g/dL [facility] Hospital[facility] [employer].; [place] [email or web address], [facility]. Sodium [Moles/Vol] 141 mmol/L Normal 136 - 145 mmol/L [facility] Hospital[facility] [employer] [facility].; [place] [employer] [facility], [facility]. Triglyceride [Mass/Vol] 96 mg/dL Normal 0 - 150 mg/dL [facility] Hospital[facility] [employer] [facility].; [place] [email or web address], [employer]. Urea nitrogen [Mass/Vol] 15 mg/dL Normal 6 - 20 mg/dL [facility] [facility], [facility].; [place] [email or web address], [employer]. Urea nitrogen/Creatinine [Mass ratio] 19 {ratio} Normal 0 - 30 {ratio} [facility].; [employer], [employer]. No Panel Informationon 11-16 AGE 64 {years} Normal [facility].; [place] [email or web address], [employer]. Laboratory - Chemistry and C hemistry - challengeon 02-25-2019 Albumin [Mass/Vol] 4.5 g/dL Normal 3.6 - 5.1 g/dL [facility].; Daniel [email or web address], [employer]. Albumin/Globulin [Mass ratio] 1.9 {ratio} Normal 1.0 - 2.5 [facility].; [place] [employer]. ALP [Catalytic activity/Vol] 75 U/L Normal 33 - 130 U/L [facility].; [place] [email or web address], [employer]. ALT [Catalytic activity/Vol] 22 U/L Normal 6 - 29 U/L [facility].; [place] [email or web address], [employer]. AST [Catalytic activity/Vol] 22 U/L Normal 10 - 35 U/L [facility], [facility].; [employer], [employer]. Bilirubin [Mass/Vol] 1.6 mg/dL Abnormal 0.2 - 1 .2 mg/dL [facility].; [facility], [employer]. Calcium [Mass/Vol] 9.8 mg/dL Normal 8.6 - 10. 4 mg/dL [facility], [facility].; [facility], [facility]. Chloride [Moles/Vol] 106 mmol/L Normal 98 - 11 0 mmol/L [facility], [facility].; [facility] Cholesterol [Mass/Vol] 178 mg/dL Normal [facility], [facility].; [facility], [facility] Cholesterol in HDL [Mass/Vol] 56 mg/dL Normal [facility], [facility].; [facility], [facility]. Cholesterol in LDL [Mass/Vol] 94 mg/dL Normal 0 - 100 mg/dL [facility], [facility].; [facility], [facility] Cholesterol non HDL [Mass/Vol] 123 mg/dL Normal [facility], [facility].; [facility], [facility]. Cholesterol.total/Chol esterol in HDL [Mass ratio] 3.2 {ratio} Normal [facility], [facility].; [facility], [facility]. CO2 [Moles/Vol] 27 mmol/L Normal 20 - 32 mmol/L [facility], [facility].; [place] [employer] [facility], [facility]. Creatinine [Mass/Vol] 0.82 mg/dL Normal 0.50 - 0.99 mg/dL [facility], [facility].; [facility], [facility]. GFR/1.73 sq M.predicted among blacks MDRD (S/P/Bld) [Vol rate/Area] 89 {ML/MIN/1.73M2} Normal [facility], [facility].; [facility], [facility]. GFR/1.73 sq M.predicted MDRD (S/P/Bld) [Vol rate/Area] 77 {ML/MIN/1.73M2} Normal [facility], [facility].; [place] [employer] [facility], [facility]. Globulin (S) [Mass/Vol] 2.3 g/dL Normal 1.9 - 3.7 g/dL [facility], [facility].; [place] [employer] [facility] Glucose [Mass/Vol] 90 mg/dL Normal 65 - 99 mg/dL [facility], [facility].; [place] [employer] [facility] Potassium [Moles/Vol] 4.3 mmol/L Normal 3.5 - 5.3 mmol/L [facility].; [facility]. Protein [Mass/Vol] 6.8 g/dL Normal 6.1 - 8.1 g/dL [facility].; [facility], [facility]. Sodium [Moles/Vol] 142 mmol/L Normal 135 - 146 mmol/L [facility], [facility].; [facility], [facility]. Triglyceride [Mass/Vol] 183 mg/dL Abnormal [facility].; [facility], [facility]. Urea nitrogen [Mass/Vol] 12 mg/dL Normal 7 - 25 mg/dL [facility].; [facility], [facility] Urea nitrogen/Creatinine [Mass ratio] 14.5 mg/mg Normal 6 - 22 [facility].; [facility], [facility]. Laboratory - Chemistry and C hemistry - challengeon 11-18-2018 25-hydroxyvitamin D3 [Mass/Vol] 51 ng/mL Normal 30 - 100 ng/mL [facility].; [facility], [facility]. Laboratory - Chemistry and C hemistry - challengeon 11-09-2018 Albumin [Mass/Vol] 4.2 g/dL Normal 3.4 - 4.8 g/dL [facility].; [facility], [facility]. Albumin [Mass/Vol] 1.4 g/dL Normal 0.9 - 1.6 [facility].; [facility], [facility]. ALP [Catalytic activity/Vol] 69 U/L Normal 38 - 126 U/L [facility].; [facility], [facility]. ALT [Catalytic activity/Vol] 21 U/L Normal 8 - 35 U/L [facility].; [facility], [facility]. ALT No additional P-5'-P [Catalytic activity/Vol] 21 U/L Normal 8 - 35 U/L [facility].; [place] [employer] [facility], [facility]. Anion gap [Moles/Vol] 19 mmol/L Normal 10 - 2 0 mmol/L [facility], [facility].; [place] [employer] [facility], [facility]. AST [Catalytic activity/Vol] 26 U/L Normal 13 - 39 U/L [facility].; [facility], [facility]. Bilirubin [Mass/Vol] 0.9 mg/dL Normal 0.0 - 1 .5 mg/dL [facility].; [facility], [facility] Calcium [Mass/Vol] 9.6 mg/dL Normal 8.6 - 10. 2 mg/dL [facility]; [facility], [facility]. Chloride [Moles/Vol] 105 mmol/L Normal 98 - 10 7 mmol/L [facility]; [facility], [facility] Cholesterol [Mass/Vol] 231 mg/dL Abnormal 0 - 2 00 mg/dL [facility]; [facility], [facility] Cholesterol in HDL [Mass or moles/Vol] 61 mg/dL Abnormal 40 - 60 mg/dL [facility]; [facility], [facility] Cholesterol in LDL [Mass/Vol] 136 mg/dL Abnormal 0 - 129 mg/dL [facility]; [facility], [facility] Cholesterol.total/Chol esterol in HDL [Mass ratio] 3.8 {ratio} Normal 0.0 - 5.0 [facility]; [facility], [facility] CO2 [Moles/Vol] 20.4 mmol/L Abnormal 21.0 - 31.0 mmol/L [facility]; [facility], [facility]. Comprehensive metabolic 2000 panel CMP with eGFR Normal [facility]; [facility], [facility] Creatinine [Mass/Vol] 0.8 mg/dL Normal 0.6 - 1.2 mg/dL [facility].; [facility], [facility]. GFR/1.73 sq M.predicted among blacks MDRD (S/P/Bld) [Vol rate/Area] mL/min/{1.73_m2} Normal 60 - 999 {ML/MINUTE} [facility], [facility].; [facility], [facility]. GFR/1.73 sq M.predicted MDRD (S/P/Bld) [Vol rate/Area] mL/min/{1.73_m2} Normal 60 - 999 {ML/MINUTE} [facility], [facility].; [facility], [facility]. Globulin (S) [Mass/Vol] 3.0 g/dL Normal 1.5 - 3.8 g/dL [facility]; [facility] Glucose [Mass/Vol] 91 mg/dL Normal 74 - 106 mg/dL [facility]; [facility] Lipid 1996 panel LIPID PROFILE Normal [facility]; [facility] Potassium [Moles/Vol] 4.5 mmol/L Normal 3.5 - 5.1 mmol/L [facility]; [facility] Protein [Mass/Vol] 7.2 g/dL Normal 6.4 - 8.3 g/dL [facility]; [facility] Sodium [Moles/Vol] 140 mmol/L Normal 136 - 145 mmol/L [facility]; [facility] Triglyceride [Mass/Vol] 171 mg/dL Abnormal 0 - 150 mg/dL [facility]; [place] [employer] [facility] TSH Qn 3.23 m[IU]/L Normal 0.34 - 5.60 {uIU/ml} [facility]; [place] [employer] [facility] Urea nitrogen [Mass/Vol] 12 mg/dL Normal 6 - 20 mg/dL [facility]; [place] [employer] [facility] Urea nitrogen/Creatinine [Mass ratio] 15 {ratio} Normal 0 - 30 {ratio} [facility]; [place] [employer] [facility] No Panel Informationon 11-09 AGE 63 {years} Normal [facility]; [place] [employer] [facility] [employer] Laboratoryon 12-21-2017 Lower GI hemoglobin IA Ql (Stl) Not detected Normal [facility]; [place] [employer] [facility] [employer] Laboratory - Chemistry and C hemistry - challengeon 11-06-2017 Albumin [Mass/Vol] 4.4 g/dL Normal 3.4 - 4.8 g/dL [facility]; [facility] Albumin [Mass/Vol] 1.5 g/dL Normal 0.9 - 1.6 [facility]; [place] [employer] [facility] [employer] ALP [Catalytic activity/Vol] 75 U/L Normal 38 - 126 U/L [facility]. ALT [Catalytic activity/Vol] 19 U/L Normal 8 - 35 U/L [facility].; [facility] ALT No additional P-5'-P [Catalytic activity/Vol] 19 U/L Normal 8 - 35 U/L [facility].; [facility] Anion gap [Moles/Vol] 9 mmol/L Abnormal 10 - 2 0 mmol/L [facility].; [facility]. AST [Catalytic activity/Vol] 19 U/L Normal 13 - 39 U/L [facility]; [facility] Bilirubin [Mass/Vol] 0.9 mg/dL Normal 0.0 - 1 .5 mg/dL [facility]; [facility] Calcium [Mass/Vol] 9.9 mg/dL Normal 8.6 - 10. 2 mg/dL [facility]; [facility] Chloride [Moles/Vol] 105 mmol/L Normal 98 - 10 7 mmol/L [facility]; [facility]. Cholesterol [Mass/Vol] 224 mg/dL Abnormal 0 - 2 00 mg/dL [facility]; [facility]. Cholesterol in HDL [Mass or moles/Vol] 60 mg/dL Normal 40 - 60 mg/dL [facility]; [facility] Cholesterol in LDL [Mass/Vol] 129 mg/dL Normal 0 - 129 mg/dL [facility]; [facility] Cholesterol.total/Chol esterol in HDL [Mass ratio] 3.7 {ratio} Normal 0.0 - 5.0 [facility]; [facility], [facility] CO2 [Moles/Vol] 25.8 mmol/L Normal 21.0 - 31.0 mmol/L [facility]; [facility], [facility]. Comprehensive metabolic 2000 panel CMP with eGFR Normal [facility]; [facility], [facility] Creatinine [Mass/Vol] 0.9 mg/dL Normal 0.6 - 1.2 mg/dL [facility]; [facility]. GFR/1.73 sq M.predicted among blacks MDRD (S/P/Bld) [Vol rate/Area] mL/min/{1.73_m2} Normal 60 - 999 {ML/MINUTE} [facility].; [place] [employer] [facility] [employer] [facility]. GFR/1.73 sq M.predicted MDRD (S/P/Bld) [Vol rate/Area] mL/min/{1.73_m2} Normal 60 - 999 {ML/MINUTE} [place] [employer] [facility] [employer].; [employer]. Globulin (S) [Mass/Vol] 3.0 g/dL Normal 1.5 - 3.8 g/dL [place] [employer] [facility] [employer].; [employer]. Glucose [Mass/Vol] 99 mg/dL Normal 74 - 106 mg/dL [place] [employer] [facility] [employer].; [employer]. Lipid 1996 panel LIPID PROFILE [facility].; [place] [employer] Potassium [Moles/Vol] 4.1 mmol/L Normal 3.5 - 5.1 mmol/L [place] [employer] [facility] [employer].; [employer]. Protein [Mass/Vol] 7.4 g/dL Normal 6.4 - 8.3 g/dL [place] [employer].; [employer]. Sodium [Moles/Vol] 136 mmol/L Normal 136 - 145 mmol/L [place] [employer] [facility] Center[facility] [employer].; [employer], [employer]. Triglyceride [Mass/Vol] 174 mg/dL Abnormal 0 - 150 mg/dL [place] [employer] [facility].; [employer]. Urea nitrogen [Mass/Vol] 13 mg/dL Normal 6 - 20 mg/dL [place] [employer] [facility].; [employer], [employer]. 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 Laboratory - Chemistry and C hemistry - challengeon 11-07-2016 Albumin [Mass/Vol] 4.0 g/dL Normal 3.4 - 4.8 g/dL [employer].; [employer]. Albumin [Mass/Vol] 1.3 g/dL Normal 0.9 - 1.6 [employer].; [employer]. ALP [Catalytic activity/Vol] 82 U/L Normal 38 - 126 U/L [employer].; [employer]. ALT [Catalytic activity/Vol] 14 U/L Normal 8 - 35 U/L [employer].; [employer]. ALT No additional P-5'-P [Catalytic activity/Vol] 14 U/L Normal 8 - 35 U/L [employer].; [employer]. Anion gap [Moles/Vol] 11 mmol/L Normal 10 - 2 0 mmol/L [employer].; [employer], [employer]. AST [Catalytic activity/Vol] 14 U/L Normal 13 - 39 U/L [employer].; [employer]. Bilirubin [Mass/Vol] 0.7 mg/dL Normal 0.0 - 1 .5 mg/dL [employer].; [employer]. Calcium [Mass/Vol] 9.7 mg/dL Normal 8.6 - 10. 2 mg/dL [employer].; [employer], [employer]. Chloride [Moles/Vol] 103 mmol/L Normal 98 - 10 7 mmol/L [employer].; [employer], [employer]. Cholesterol [Mass/Vol] 185 mg/dL Normal 0 - 2 00 mg/dL [employer].; [employer], [employer]. Cholesterol in HDL [Mass or moles/Vol] 65 mg/dL Abnormal 40 - 60 mg/dL [facility].; [facility], [facility] Cholesterol in LDL [Mass/Vol] 99 mg/dL Normal 0 - 129 mg/dL [facility].; [facility], [facility] Cholesterol.total/Chol esterol in HDL [Mass ratio] 2.8 {ratio} Normal 0.0 - 5.0 [facility]; [facility], [facility] CO2 [Moles/Vol] 28.1 mmol/L Normal 21.0 - 31.0 mmol/L [facility]; [facility], [facility] Comprehensive metabolic 2000 panel CMP with eGFR Normal [facility]; [facility], [facility] Creatinine [Mass/Vol] 0.8 mg/dL Normal 0.6 - 1.2 mg/dL [facility], [facility].; [facility], [facility]. GFR/1.73 sq M.predicted among blacks MDRD (S/P/Bld) [Vol rate/Area] mL/min/{1.73_m2} Normal 60 - 999 {ML/MINUTE} [facility].; [facility], [facility]. GFR/1.73 sq M.predicted MDRD (S/P/Bld) [Vol rate/Area] mL/min/{1.73_m2} Normal 60 - 999 {ML/MINUTE} [facility], [facility].; [facility], [facility]. Globulin (S) [Mass/Vol] 3.2 g/dL Normal 1.5 - 3.8 g/dL [facility].; [facility], [facility]. Glucose [Mass/Vol] 106 mg/dL Normal 74 - 106 mg/dL [facility], [facility].; [facility], [facility]. Lipid 1996 panel LIPID PROFILE Normal [facility]; [facility], [facility] Potassium [Moles/Vol] 4.3 mmol/L Normal 3.5 - 5.1 mmol/L [facility], [facility].; [facility], [facility] Protein [Mass/Vol] 7.2 g/dL Normal 6.4 - 8.3 g/dL [facility], [facility].; [employer]. Sodium [Moles/Vol] 138 mmol/L Normal 136 - 145 mmol/L [employer].; [employer]. Triglyceride [Mass/Vol] 105 mg/dL Normal 0 - 150 mg/dL [employer].; [employer]. Urea nitrogen [Mass/Vol] 14 mg/dL Normal 6 - 20 mg/dL [employer].; [employer]. Urea nitrogen/Creatinine [Mass ratio] 18 {ratio} Normal 0 - 30 {ratio} [employer].; [employer]. No Panel Informationon 11-07 AGE 60 {years} Normal [employer].; [employer]. Office Visiton 09-04-2016 Documentation of current medications (procedure) Done Invalid Interpretation Code [email or web address] Work Phone: Protein mass conc Done Invalid Interpretation Code [email or web address] Work Phone: Laboratory - Chemistry and C hemistry - challengeon 07-09-2016 Bilirubin Ql (U) Negative Normal [facility]; [employer]. Ketones Ql (U) Trace Normal [facility] [employer]; [employer]. pH (U) 7.0 [pH] Normal [employer].; [employer]. Specific gravity (U) [Rel density] 1.015 Normal [employer]; [employer]. Urobilinogen Qn (U) 4 mg/dL Abnormal [facility] [employer].; [employer]. Laboratory - Hematology and Cell countson 07-09-2016 Hemoglobin Ql (U) Trace, hemolyzed Abnormal [facility] [employer].; [employer]. Laboratory - Specimen inform ationon 07-09-2016 Appearance (U) Clear Normal [employer]. Color (U) Dark Yellow Normal [employer].; [employer]. Laboratory - Urinalysison Glucose Test strip (U) [Mass/Vol] Negative Normal [employer]; [employer]. Leukocyte esterase Test strip Ql (U) Negative Normal [employer].; [employer]. Nitrite Ql (U) Negative Normal [employer]. Protein Ql (U) Trace Normal [employer]am [employer].; [employer]. Lab Report: Basic Metabolic Profile (BMP)on 04-25-2016 Anion gap 10 mmol/L Invalid Interpretation Code 5-15 [email or web address] Work Phone: Anion gap 4 molar conc 10 Invalid Interpretation Code 5-15 [email or web address] Work Phone: BUN/Creatinine Ratio 10.5 RATIO Invalid Interpretation Code 10-20 [email or web address] Work Phone: Calcium 9.3 mg/dL Invalid Interpretation Code 8.5-10.1 [email or web address] Work Phone: Chloride 105 mmol/L Invalid Interpretation Code 98-107 [email or web address] Work Phone: CO2 25.0 mmol/L Invalid Interpretation Code 21.0-32.0 [email or web address] Work Phone: CO2 ppres (BldV) 25.0 mmol/L Invalid Interpretation Code 21.0-32.0 [email or web address] Work Phone: Creatinine 0.86 mg/dL Invalid Interpretation Code 0.55-1.02 [email or web address] Work Phone: eGFR (non-black) 87 mL/min/{1.73_m2} Invalid Interpretation Code >60 [email or web address] Work Phone: eGFR (non-black) 72 mL/min/{1.73_m2} Invalid Interpretation Code >60 [email or web address] Work Phone: EST GFR - AA 87 mL/min Invalid Interpretation Code >60 [email or web address] Work Phone: Glucose 102 mg/dL Invalid Interpretation Code 70-110 [email or web address] Work Phone: Glucose mass conc 102 mg/dL Invalid Interpretation Code 70-110 [email or web address] Work Phone: Potassium 4.0 mmol/L Invalid Interpretation Code 3.5-5.1 [email or web address] Work Phone: Sodium 140 mmol/L Invalid Interpretation Code 136-145 [email or web address] Work Phone: Urea nitrogen 9 mg/dL Invalid Interpretation Code 7-18 [email or web address] Work Phone: Lab Report: CBC-Complete Blo od Cnt No Diffon 04-25-2016 Erythrocyte distribution width Auto Ratio (RBC) 40.8 fL Invalid Interpretation Code 35.1-43.9 [email or web address] Work Phone: Erythrocytes (RBC) 5.31 10*6/uL Invalid Interpretation Code 4.2-5.4 [email or web address] Work Phone: Hematocrit (HCT) 44.2 % Invalid Interpretation Code 37-47 [email or web address] Work Phone: Hemoglobin (HGB) 15.2 g/dL High 12.0-15.0 [email or web address] Work Phone: MCH 28.6 pg Invalid Interpretation Code 27.0-32.0 [email or web address] Work Phone: MCHC 34.4 G/GL Invalid Interpretation Code 32-36 [email or web address] Work Phone: MCV 83.2 fL Invalid Interpretation Code 81-99 [email or web address] Work Phone: Platelets 198 10*3/mm3 Invalid Interpretation Code 150-450 [email or web address] Work Phone: PMV by Dilip 10.5 fL Invalid Interpretation Code 6.2-12.0 [email or web address] Work Phone: RDW-CA 13.5 % Invalid Interpretation Code 11.6-14.6 [email or web address] Work Phone: red blood cell distribution width, size density 40.8 fL Invalid Interpretation Code 35.1-43.9 [email or web address] Work Phone: WBC (Leukocytes) 4.2 10*3/uL Low 4.4-11.0 [email or web address] Work Phone: Lab Report: Partial Thrombop last Timeon 04-25-2016 aPTT 31.0 s Invalid Interpretation Code 24.1-36.2 [email or web address] Work Phone: Lab Report: Prothrombin Time w/INRon 04-25-2016 Coagulation tissue factor induced in platelet poor plasma 13.1 s Invalid Interpretation Code 11.7-14.9 [email or web address] Work Phone: INR Coag RelTime (PPP) 1.0 {INR} Invalid Interpretation Code [email or web address] Work Phone: INR in blood by coagulation 1.0 {INR} Invalid Interpretation Code [email or web address] Work Phone: Office Visit: Cari 04-22-20 16 Dietary management education, guidance, and counseling (procedure) yes Invalid Interpretation Code [email or web address] Work Phone: Replaced Document: Jeffery Valdovinoson 04-22-2016 EKG QRS axis 19 deg Invalid Interpretation Code [email or web address] Work Phone: electrocardiogram interpretation Sinus Rhythm - Negative precordial T-waves. WITHIN NORMAL LIMITS Invalid Interpretation Code [email or web address] Work Phone: GE use only - for [employer] import when terms are not otherwise specified 420 ms Invalid Interpretation Code [employer] Phone: Interpretation Sinus Rhythm - Negative precordial T-waves. WITHIN NORMAL LIMITS Invalid Interpretation Code [email or web address] Work Phone: P [place] 24 deg Invalid Interpretation Code [email or web address] Work Phone: P wave axis, electrocardiogram 24 deg Invalid Interpretation Code [email or web address] Work Phone: WI Interval 148 ms Invalid Interpretation Code [email or web address] Work Phone: WI interval, electrocardiogram 148 ms Invalid Interpretation Code [email or web address] Work Phone: Pulse (Heart Rate) 65 /min Invalid Interpretation Code [email or web address] Work Phone: QRS axis, electrocardiogram 19 deg Invalid Interpretation Code [email or web address] Work Phone: QRS Duration 92 ms Invalid Interpretation Code [email or web address] Work Phone: QRS duration, electrocardiogram 92 ms Invalid Interpretation Code [email or web address] Work Phone: QT Interval new path ms Invalid Interpretation Code [email or web address] Work Phone: QT interval, electrocardiogram new path ms Invalid Interpretation Code [email or web address] Work Phone: QTc George 420 ms Invalid Interpretation Code [email or web address] Work Phone: T [place] -1 deg Invalid Interpretation Code [email or web address] Work Phone: T wave axis, electrocardiogram -1 deg Invalid Interpretation Code [email or web address] Work Phone: Office Visiton 10-25-2015 Tobacco smoking status NHIS Former smoker Invalid Interpretation Code [email or web address] Work Phone: Tobacco use CPHS Former smoker Invalid Interpretation Code [email or web address] Work Phone: Laboratoryon 07-09-2015 Lower GI hemoglobin IA Ql (Stl) Not detected Normal [facility], [facility].; [facility]. Clinical Lists Update: Prelo quantitative research analyst 06-28-2015 ALP enzyme act/vol (Bld) 76 U/L Invalid Interpretation Code [email or web address] Work Phone: Globulin 3.1 g/dL Invalid Interpretation Code [email or web address] Work Phone: HDL Cholesterol 53 mg/dL Invalid Interpretation Code [email or web address] Work Phone: Thyroid stimulating hormone (TSH) 3.31 u[iU]/mL Invalid Interpretation Code [email or web address] Work Phone: Alanine aminotransferase (ALT) 18 U/L Normal 8 - 35 U/L [employer] Work Phone: Albumin 4.2 g/dL Normal 3.4 - 4.8 g/dL [email or web address] Work Phone: Alkaline phosphatase (ALP) 76 U/L Normal 38 - 126 U/L [email or web address] Work Phone: Aspartate aminotransferase (AST) 17 U/L Normal 13 - 39 U/L [employer] Work Phone: Bilirubin (total) 1.0 mg/dL Normal 0.0 - 1.5 mg/dL [facility] Work Phone: Cholesterol 199 mg/dL Normal 0 - 200 mg/dL [facility] [employer] Work Phone: Cholesterol to HDL Ratio 3.8 {ratio} Normal 0.0 - 5.0 [employer] [employer] Work Phone: LDL Cholesterol 113 mg/dL Normal 0 - 129 mg/dL [facility] [employer] Work Phone: Protein 7.3 g/dL Normal 6.4 - 8.3 g/dL [facility] [employer] Work Phone: Triglyceride 166 mg/dL Abnormal 0 - 150 mg/dL [facility] [employer] Work Phone: Laboratory - Chemistry and C hemistry - challengeon 06-28-2015 Albumin [Mass/Vol] 1.4 g/dL Normal 0.9 - 1.6 [facility], [facility].; [facility] ALT No additional P-5'-P [Catalytic activity/Vol] 18 U/L Normal 8 - 35 U/L [facility]; [facility], [facility]. Anion gap [Moles/Vol] 14 mmol/L Normal 10 - 2 0 mmol/L [facility]; [facility], [facility]. Calcium [Mass/Vol] 9.6 mg/dL Normal 8.6 - 10. 2 mg/dL [facility], [facility].; [facility], [facility]. Chloride [Moles/Vol] 99 mmol/L Normal 98 - 10 7 mmol/L [facility].; [facility], [facility]. Cholesterol in HDL [Mass or moles/Vol] 53 mg/dL Normal 40 - 60 mg/dL [facility], [facility].; [facility], [facility] CO2 [Moles/Vol] 26.0 mmol/L Normal 13.0 - 29.0 mmol/L [facility], [facility]; [facility], [facility] Comprehensive metabolic 2000 panel CMP with eGFR Normal [facility]; [employer] [employer] [facility], [facility] Creatinine [Mass/Vol] 0.7 mg/dL Normal 0.6 - 1.2 mg/dL [facility].; [facility], [facility]. GFR/1.73 sq M.predicted among blacks MDRD (S/P/Bld) [Vol rate/Area] mL/min/{1.73_m2} Normal 60 - 999 {ML/MINUTE} [facility].; [place] [facility] [facility]. GFR/1.73 sq M.predicted MDRD (S/P/Bld) [Vol rate/Area] mL/min/{1.73_m2} Normal 60 - 999 {ML/MINUTE} [facility].; [place] [employer]. Globulin (S) [Mass/Vol] 3.1 g/dL Normal 1.5 - 3.8 g/dL [place] [facility] [facility].; [place] [employer] Glucose [Mass/Vol] 99 mg/dL Normal 74 - 106 mg/dL [place] [facility] [facility].; [employer] Lipid 1996 panel LIPID PROFILE [facility]; [place] [facility] [facility] Potassium [Moles/Vol] 3.6 mmol/L Normal 3.5 - 5.1 mmol/L [facility].; [place] [employer] [facility] Sodium [Moles/Vol] 135 mmol/L Abnormal 136 - 145 mmol/L [place] [facility] [facility].; [place] [employer]. TSH Qn 3.31 m[IU]/L Normal 0.34 - 5.60 {uIU/ml} [facility] [facility] [facility].; [employer] Urea nitrogen [Mass/Vol] 14 mg/dL Normal 6 - 20 mg/dL [facility] [employer] [facility].; [place] [employer] Urea nitrogen/Creatinine [Mass ratio] 20 {ratio} Normal 0 - 30 {ratio} [employer] [employer] [facility].; [employer] No Panel Informationon 06-28 AGE 59 {years} Normal [facility] [employer].; [place] [employer] Office Visiton 10-20-2014 General cardiovascular disease 10Y risk [#] [place]D'Agost[place] 2 % Invalid Interpretation Code [email or web address] Work Phone: Lab Report: CBC W/Diff, Auto matedon 07-10-2014 Absolute Neut 3.5 X10 3/UL Invalid Interpretation Code 2.0-7.7 [facility] Work Phone: Absolute Neutrophil count 3.5 X10 3/UL Invalid Interpretation Code 2.0-7.7 [facility] Work Phone: Basophils/100 leukocytes 0.5 % Invalid Interpretation Code 0-1 [facility] Work Phone: Eosinophils/100 leukocytes 1.3 % Invalid Interpretation Code 0-5 [facility] Work Phone: Lymphocytes/100 leukocytes 25.6 % Invalid Interpretation Code 19-41 [facility] Work Phone: Monocytes/100 leukocytes 8.1 % Invalid Interpretation Code 0-10 [facility] Work Phone: Neutrophils/100 leukocytes 64.3 % Invalid Interpretation Code 47-70 [facility] [employer] Work Phone: Lab Report: Magnesiumon Magnesium 1.9 mg/dL Invalid Interpretation Code 1.8-2.4 [facility] [employer] Work Phone: Office Visit: [facility] 07-10-19 15 cardiac risk group B Invalid Interpretation Code [facility] [employer] Work Phone: Tobacco smoking status NHIS Never Invalid Interpretation Code [facility] Work Phone: Replaced Document: Jeffery Becerra CG Observationson 01-20-2014 Pulse (Heart Rate) 419 ms Invalid Interpretation Code [facility] [employer] Work Phone: Lab Report: LIPIDon 04-15-20 13 very low density lipoproteins 18 mg/dL Normal 5-40 [facility] Work Phone: Lab Report: LIVERon 04-15-20 13 Bilirubin (direct) 0.24 mg/dL Normal 0.00-0.30 [facility] Work Phone: Laboratory - Chemistry and C hemistry - challengeon 08-04-2011 Cholesterol [Mass/Vol] 222 mg/dL Abnormal 0 - 2 00 mg/dL [facility] Cholesterol in HDL [Mass/Vol] 62 mg/dL Abnormal 40 - 60 mg/dL [facility].; [facility]. Cholesterol in LDL [Mass/Vol] 121 mg/dL Normal 50.0 - 130.0 mg/dL [facility].; [facility] Cholesterol in VLDL [Mass/Vol] 39 mg/dL Normal [facility].; [facility], [facility] Cholesterol.total/Chol esterol in HDL [Mass ratio] - Normal 0 - 5.0 [facility].; [facility] Triglyceride [Mass/Vol] 195 mg/dL Abnormal 40 - 150 mg/dL [facility].; [place] [employer] [facility], [facility] Office Visiton 07-14-2011 Alcoholism counseling (procedure) no Invalid Interpretation Code [facility] Work Phone: Protein mass conc no Invalid Interpretation Code [facility] [employer] [facility] Work Phone: Laboratory - Chemistry and C hemistry - challengeon 09-12-2010 Free T4 [Mass/Vol] 1.21 ng/dL Normal [facility]; [place] [facility] [facility] Potassium [Moles/Vol] 4.3 mmol/L Normal 3.50 - 5.00 meq/L [facility]; [place] [employer] [facility], [facility] Laboratory - Chemistry and C hemistry - challengeOrdered By: Cinthya Banks on 09-12-2010 TSH Qn 1.64 mU/mL Normal 0.35 - 5.5 mU/mL [facility]; [place] [facility] [facility] Work Phone: Vital Signs Date Time Vital Sign Value Performing Clinician Facility 09-29-2024 10:36-0400 Body height 165.1 cm Noni Nicole LPN [facility].; [place] [employer] [facility] 09-29-2024 10:36-0400 Body mass index (BMI) [Ratio] 30.95 kg/m2 Noni Nicole LPN [facility].; [employer] [employer] [facility]. 09-29-2024 10:36-0400 Body surface area Derived from formula 1.92 m2 Noni Nicole LPN [facility]; [place] [facility], [facility] 09-29-2024 10:36-0400 Body weight 84.37 kg Noni Ford Corey RABAGO [facility], [facility].; [place] [employer] [facility], [facility]. 09-29-2024 10:36-0400 Diastolic blood pressure 81 mm[Hg] Noni M Corey RABAGO [facility], [facility].; [employer]. Comment on above: Patient Position: Sitting; Cuff Location : Left Arm; Cuff Size: Standard 09-29-2024 10:36-0400 Heart rate 52 /min Noni M Corey RABAGO [facility], [facility].; [facility] [email or web address], [employer]. Comment on above: Pattern: Regular 09-29-2024 10:36-0400 Systolic blood pressure 150 mm[Hg] Noni M Corey RABAGO [facility], [facility].; [employer], [employer]. Comment on above: Patient Position: Sitting; Cuff Location : Left Arm; Cuff Size: Standard 08-19-2024 13:49-0400 Body height 165.1 cm Brea El LPN [facility], [facility].; [employer], [facility]. 08-19-2024 13:49-0400 Body mass index (BMI) [Ratio] 32.12 kg/m2 Brea El LPN [facility], [facility].; [place] [employer] [facility], [facility]. 08-19-2024 13:49-0400 Body surface area Derived from formula 1.95 m2 Brea El LPN [facility], [facility].; [facility] [employer] [facility], [facility]. 08-19-2024 13:49-0400 Body weight 87.54 kg Brea El LPN [facility], [facility].; [employer], [facility]. 08-19-2024 13:49-0400 Diastolic blood pressure 80 mm[Hg] Brea El LPN [place] [employer] [facility], [facility].; [employer], [employer]. Comment on above: Patient Position: Sitting; Cuff Location : Left Arm; Cuff Size: Standard 08-19-2024 13:49-0400 Heart rate 50 /min Brea El LPN [facility], [facility].; [employer], [employer]. Comment on above: Pattern: Regular 08-19-2024 13:49-0400 Systolic blood pressure 147 mm[Hg] Brea El LPN [facility], [facility].; [place] [employer] [facility], [facility]. Comment on above: Patient Position: Sitting; Cuff Location : Left Arm; Cuff Size: Standard 08-16-2024 15:55-0400 Body height 165.1 cm Brea El LPN [facility] 08-16-2024 15:55-0400 Body mass index (BMI) [Ratio] 32.62 kg/m2 Brea El LPN [facility], [facility].; [place] [employer] [facility] 08-16-2024 15:55-0400 Body surface area Derived from formula 1.96 m2 Brea El LPN [facility], [facility].; [facility], [facility]. 08-16-2024 15:55-0400 Body temperature 96.2 [degF] Brea El LPN [facility], [facility].; [place] [email or web address] Comment on above: Method: Tympanic 08-16-2024 15:55-0400 Body weight 88.91 kg Brea El LPN [facility], [facility].; [place] [employer] [facility] 08-16-2024 15:55-0400 Diastolic blood pressure 82 mm[Hg] Brea El LPN [facility], [facility].; [email or web address] Comment on above: Patient Position: Sitting; Cuff Location : Left Arm; Cuff Size: Standard 08-16-2024 15:55-0400 Heart rate 54 /min Brea El LPN [facility], [facility].; [employer] [employer] [facility] Comment on above: Pattern: Regular 08-16-2024 15:55-0400 Systolic blood pressure 174 mm[Hg] Brea El LPN [facility], [facility].; [facility] [email or web address], [employer]. Comment on above: Patient Position: Sitting; Cuff Location : Left Arm; Cuff Size: Standard 07-29-2024 07:20-0500 Body temperature 98.4 [degF] Key Cope MD Work Phone: [facility] 07-29-2024 07:20-0500 Diastolic blood pressure 74 mm[Hg] Key Cope MD Work Phone: [facility] 07-29-2024 07:20-0500 Heart rate 47 /min Key Cope MD Work Phone: [phone] [place] [address] 07-29-2024 07:20-0500 Respiratory rate 16 /min Key Cope MD Work Phone: [phone] [place] [address] 07-29-2024 07:20-0500 SaO2% (BldA) [Mass fraction] 96 % Key Cope MD Work Phone: [phone](872)[phone] [place] [address] 07-29-2024 07:20-0500 Systolic blood pressure 160 mm[Hg] Key Cope MD Work Phone: 6([phone] [place] [address] 07-27-2024 09:12-0500 Body height 165.1 cm Key Cope MD Work Phone: [phone] [place] [address] 07-27-2024 09:12-0500 Body mass index (BMI) [Ratio] 32.47 kg/m2 Key Cope MD Work Phone: [phone])[phone] [place] [address] 07-27-2024 09:12-0500 Body weight 88.5 kg Key Cope MD Work Phone: [phone] [place] [address] 07-22-2024 10:04-0500 Body height 165.1 cm Flakita Dick RN [facility], [facility].; [facility], [facility]. 07-22-2024 10:04-0500 Body mass index (BMI) [Ratio] 32.62 kg/m2 Flakita Dick RN [facility], [facility].; [facility], [facility]. 07-22-2024 10:04-0500 Body surface area Derived from formula 1.96 m2 Flakita Dick RN [facility], [facility].; [facility], [facility]. 07-22-2024 10:04-0500 Body weight 88.91 kg Flakita Dick RN [facility].; [facility]. 07-22-2024 10:04-0500 Diastolic blood pressure 71 mm[Hg] Flakita Dick RN [facility].; [facility] [employer]. Comment on above: Patient Position: Sitting; Cuff Location : Left Arm; Cuff Size: Standard 07-22-2024 10:04-0500 Heart rate 60 /min Flakita Dick RN [facility].; [facility]. Comment on above: Pattern: Regular 07-22-2024 10:04-0500 Systolic blood pressure 115 mm[Hg] Flakita Dick RN [facility].; [facility] [employer]. Comment on above: Patient Position: Sitting; Cuff Location : Left Arm; Cuff Size: Standard 07-21-2024 11:01-0500 Body height 165.1 cm Ji Villa MD, PhD Work Phone: [facility] 07-21-2024 11:01-0500 Body mass index (BMI) [Ratio] 32.45 kg/m2 Ji Villa MD, PhD Work Phone: [facility] 07-21-2024 11:01-0500 Body temperature 97.3 [degF] Ji Villa MD, PhD Work Phone: [facility] 07-21-2024 11:01-0500 Body weight 88.45 kg Ji Villa MD, PhD Work Phone: [facility] 07-21-2024 11:01-0500 Diastolic blood pressure 86 mm[Hg] Ji Villa MD, PhD Work Phone: [facility] Comment on above: patient asymptomatic MD aware 07-21-2024 11:01-0500 Heart rate 54 /min Ji Villa MD, PhD Work Phone: [facility] 07-21-2024 11:01-0500 Respiratory rate 12 /min Ji Villa MD, PhD Work Phone: [facility] 07-21-2024 11:01-0500 SaO2% (BldA) [Mass fraction] 99 % Ji Villa MD, PhD Work Phone: [facility] 07-21-2024 11:01-0500 Systolic blood pressure 186 mm[Hg] Ji Villa MD, PhD Work Phone: [facility] Comment on above: patient asymptomatic MD aware 07-21-2024 09:27-0500 Body height 165.1 cm Bruce Constable WILDLIFE PROTECTOR-[employer] CONSULTANT Work Phone: [facility] 07-21-2024 09:27-0500 Diastolic blood pressure 78 mm[Hg] Bruce Constable WILDLIFE PROTECTOR-[employer] SOLUT[employer] CONSULTANT Work Phone: [facility] 07-21-2024 09:27-0500 Heart rate 47 /min Bruce Constable WILDLIFE PROTECTOR-[employer] SOLUT[employer] CONSULTANT Work Phone: [facility] 07-21-2024 09:27-0500 Systolic blood pressure 178 mm[Hg] Bruce Constable WILDLIFE PROTECTOR-[employer] SOLUT[employer] CONSULTANT Work Phone: [facility] 06-30-2024 09:20-0500 Body height 165.1 cm Ganga Raymond Moy PA-C Work Phone: [employer] 06-30-2024 09:20-0500 Body mass index (BMI) [Ratio] 32.45 kg/m2 Ganga Raymond Moy PA-C Work Phone: [employer]; [employer] 06-30-2024 09:20-0500 Body surface area Derived from formula 1.96 m2 Ganga J Moy PA-C Work Phone: [employer] [employer] 06-30-2024 09:20-0500 Body weight 88.45 kg Ganga Raymond Moy PA-C Work Phone: [facility]. 06-30-2024 09:20-0500 Diastolic blood pressure 76 mm[Hg] Ganga TOWNSEND-C Work Phone: [facility].; [employer]. Comment on above: Patient Position: Sitting; Cuff Location : Left Arm; Cuff Size: Standard 06-30-2024 09:20-0500 Heart rate 71 /min Ganga TOWNSEND-C Work Phone: [facility] [employer]. Comment on above: Pattern: Regular 06-30-2024 09:20-0500 Systolic blood pressure 135 mm[Hg] Ganga TOWNSEND-C Work Phone: [facility] [employer]. Comment on above: Patient Position: Sitting; Cuff Location : Left Arm; Cuff Size: Standard 03-17-2024 10:06-0400 Body height 165.1 cm Ji Villa MD, PhD Work Phone: [facility] 03-17-2024 10:06-0400 Body mass index (BMI) [Ratio] 32.95 kg/m2 Ji Villa MD, PhD Work Phone: [facility] 03-17-2024 10:06-0400 Body temperature 98.6 [degF] Ji Villa MD, PhD Work Phone: [facility] 03-17-2024 10:06-0400 Body weight 89.81 kg Ji Villa MD, PhD Work Phone: [facility] 03-17-2024 10:06-0400 Diastolic blood pressure 86 mm[Hg] Ji Villa MD, PhD Work Phone: [facility] 03-17-2024 10:06-0400 Heart rate 60 /min Ji Villa MD, PhD Work Phone: [facility] 03-17-2024 10:06-0400 Systolic blood pressure 154 mm[Hg] Ji Villa MD, PhD Work Phone: [facility] 03-17-2024 08:58-0400 Body mass index (BMI) [Ratio] 32.95 kg/m2 Bruce Constable WILDLIFE PROTECTOR-SR SOLUTIONS CONSULTANT Work Phone: [facility] 03-17-2024 08:58-0400 Body weight 89.81 kg Bruce Constable WILDLIFE PROTECTOR-SR SOLUTIONS CONSULTANT Work Phone: [facility] 03-17-2024 08:58-0400 Diastolic blood pressure 86 mm[Hg] Bruce Constable WILDLIFE PROTECTOR-SR SOLUTIONS CONSULTANT Work Phone: [facility] 03-17-2024 08:58-0400 Heart rate 60 /min Bruce Constable WILDLIFE PROTECTOR-SR SOLUTIONS CONSULTANT Work Phone: [facility] 03-17-2024 08:58-0400 Systolic blood pressure 154 mm[Hg] Bruce Constable WILDLIFE PROTECTOR-SR SOLUTIONS CONSULTANT Work Phone: [facility] 01-28-2024 15:07-0400 Body height 165.1 cm Ji Villa MD, PhD Work Phone: [facility] 01-28-2024 15:07-0400 Body mass index (BMI) [Ratio] 33.05 kg/m2 Ji Villa MD, PhD Work Phone: [facility] 01-28-2024 15:07-0400 Body temperature 97.59 [degF] Ji Villa MD, PhD Work Phone: [facility] 01-28-2024 15:07-0400 Body weight 90.08 kg Ji Villa MD, PhD Work Phone: [facility] 01-28-2024 15:07-0400 Diastolic blood pressure 76 mm[Hg] Ji Villa MD, PhD Work Phone: [facility] 01-28-2024 15:07-0400 Heart rate 65 /min Ji Villa MD, PhD Work Phone: [facility] 01-28-2024 15:07-0400 Respiratory rate 14 /min Ji Villa MD, PhD Work Phone: [facility] 01-28-2024 15:07-0400 SaO2% (BldA) [Mass fraction] 96 % Ji Villa MD, PhD Work Phone: [facility] 01-28-2024 15:07-0400 Systolic blood pressure 116 mm[Hg] Ji Villa MD, PhD Work Phone: [facility] 01-28-2024 12:52-0400 Body height 165.1 cm Bruce Constable WILDLIFE PROTECTOR-SR SOLUTIONS CONSULTANT Work Phone: [facility] 01-28-2024 12:52-0400 Body mass index (BMI) [Ratio] 33.12 kg/m2 Bruce Constable WILDLIFE PROTECTOR-SR SOLUTIONS CONSULTANT Work Phone: [facility] 01-28-2024 12:52-0400 Body weight 90.27 kg Bruce Constable WILDLIFE PROTECTOR-SR SOLUTIONS CONSULTANT Work Phone: [facility] 01-28-2024 12:52-0400 Diastolic blood pressure 79 mm[Hg] Bruce Constable WILDLIFE PROTECTOR-SR SOLUTIONS CONSULTANT Work Phone: [facility] 01-28-2024 12:52-0400 Heart rate 58 /min Bruce Constable WILDLIFE PROTECTOR-SR SOLUTIONS CONSULTANT Work Phone: [facility] 01-28-2024 12:52-0400 Systolic blood pressure 165 mm[Hg] Bruce Constable WILDLIFE PROTECTOR-SR SOLUTIONS CONSULTANT Work Phone: [facility] 12-24-2023 09:46-0400 Body height 165.1 cm Bruce Constable WILDLIFE PROTECTOR-SR SOLUTIONS CONSULTANT Work Phone: [facility] 12-24-2023 09:46-0400 Body mass index (BMI) [Ratio] 33.23 kg/m2 Bruce Constable WILDLIFE PROTECTOR-SR SOLUTIONS CONSULTANT Work Phone: [facility] 12-24-2023 09:46-0400 Body temperature 97.7 [degF] Bruce Constable WILDLIFE PROTECTOR-SR SOLUTIONS CONSULTANT Work Phone: [phone])[phone] [address] 12-24-2023 09:46-0400 Body weight 90.58 kg Bruce Constable WILDLIFE PROTECTOR-SR SOLUTIONS CONSULTANT Work Phone: [phone] [address] 12-24-2023 09:46-0400 Diastolic blood pressure 67 mm[Hg] Bruce Constable WILDLIFE PROTECTOR-SR SOLUTIONS CONSULTANT Work Phone: [phone])[phone] [address] 12-24-2023 09:46-0400 Heart rate 56 /min Bruce Constable WILDLIFE PROTECTOR-SR SOLUTIONS CONSULTANT Work Phone: [facility] 12-24-2023 09:46-0400 Respiratory rate 14 /min Bruce Constable WILDLIFE PROTECTOR-SR SOLUTIONS CONSULTANT Work Phone: [facility] 12-24-2023 09:46-0400 SaO2% (BldA) [Mass fraction] 98 % Bruce Constable WILDLIFE PROTECTOR-SR SOLUTIONS CONSULTANT Work Phone: [facility] 12-24-2023 09:46-0400 Systolic blood pressure 153 mm[Hg] Bruce Constable WILDLIFE PROTECTOR-SR SOLUTIONS CONSULTANT Work Phone: [facility] 11-30-2023 10:25-0400 Body height 165.1 cm Ganga Moy PA-C Work Phone: [facility], [facility].; [facility]. 11-30-2023 10:25-0400 Body mass index (BMI) [Ratio] 33.61 kg/m2 Ganga Myo PA-C Work Phone: [facility]; [facility] HospitalShen[facility] [employer] [facility] 11-30-2023 10:25-0400 Body surface area Derived from formula 1.99 m2 Ganga Andrade Moy PA-C Work Phone: [facility].; [employer] [facility] 11-30-2023 10:25-0400 Body weight 91.63 kg Ganga Andrade Moy PA-C Work Phone: [employer].; [employer] [facility] 11-30-2023 10:25-0400 Diastolic blood pressure 80 mm[Hg] Ganga Andrade Myo PA-C Work Phone: Daniel [facility]; [employer]. Comment on above: Patient Position: Sitting; Cuff Location : Left Arm; Cuff Size: Standard 11-30-2023 10:25-0400 Heart rate 62 /min Ganga Andrade Moy PA-C Work Phone: Ad[facility] [employer]; [employer]. Comment on above: Pattern: Regular 11-30-2023 10:25-0400 Systolic blood pressure 133 mm[Hg] Ganga Andrade Moy PA-C Work Phone: [facility].; [employer]. Comment on above: Patient Position: Sitting; Cuff Location : Left Arm; Cuff Size: Standard 11-21-2023 07:00-0400 Body temperature 98.49 [degF] Ji Villa MD, PhD Work Phone: [facility] 11-21-2023 07:00-0400 Diastolic blood pressure 71 mm[Hg] Ji Villa MD, PhD Work Phone: [facility] 11-21-2023 07:00-0400 Heart rate 58 /min Ji Villa MD, PhD Work Phone: [facility] 11-21-2023 07:00-0400 Respiratory rate 16 /min Ji Villa MD, PhD Work Phone: [facility] 11-21-2023 07:00-0400 SaO2% (BldA) [Mass fraction] 97 % Ji Villa MD, PhD Work Phone: [facility] 11-21-2023 07:00-0400 Systolic blood pressure 153 mm[Hg] Ji Villa MD, PhD Work Phone: [facility] 11-20-2023 07:44-0400 Body height 165.1 cm Ji Villa MD, PhD Work Phone: [facility] 11-20-2023 07:44-0400 Body mass index (BMI) [Ratio] 33.88 kg/m2 Ji Villa MD, PhD Work Phone: [facility] 11-20-2023 07:44-0400 Body weight 92.35 kg Ji Villa MD, PhD Work Phone: [facility] 11-17-2023 11:14-0400 Body height 165.1 cm Mac Burch MD, PhD Work Phone: [facility] 11-17-2023 11:14-0400 Body mass index (BMI) [Ratio] 34.11 kg/m2 Mac Burch MD, PhD Work Phone: [facility] 11-17-2023 11:14-0400 Body weight 92.99 kg Mac Burch MD, PhD Work Phone: [facility] 11-17-2023 11:14-0400 Diastolic blood pressure 84 mm[Hg] Mac Burch MD, PhD Work Phone: [facility] 11-17-2023 11:14-0400 Heart rate 64 /min Mac Burch MD, PhD Work Phone: [facility] 11-17-2023 11:14-0400 Respiratory rate 18 /min Mac Burch MD, PhD Work Phone: [facility] 11-17-2023 11:14-0400 SaO2% (BldA) [Mass fraction] 98 % Mac Burch MD, PhD Work Phone: [facility] 11-17-2023 11:14-0400 Systolic blood pressure 134 mm[Hg] Mac Burch MD, PhD Work Phone: [facility] 10-29-2023 19:05-0400 Body temperature 97.5 [degF] Ji Villa MD, PhD Work Phone: [facility] 10-29-2023 19:05-0400 Diastolic blood pressure 59 mm[Hg] Ji Villa MD, PhD Work Phone: [facility] 10-29-2023 19:05-0400 Heart rate 53 /min Ji Villa MD, PhD Work Phone: [facility] 10-29-2023 19:05-0400 Respiratory rate 18 /min Ji Villa MD, PhD Work Phone: [facility] 10-29-2023 19:05-0400 SaO2% (BldA) [Mass fraction] 96 % Ji Villa MD, PhD Work Phone: [facility] 10-29-2023 19:05-0400 Systolic blood pressure 122 mm[Hg] Ji Villa MD, PhD Work Phone: [facility] 10-29-2023 08:57-0400 Body height 165.1 cm Ji Villa MD, PhD Work Phone: [facility] 10-29-2023 08:57-0400 Body mass index (BMI) [Ratio] 32.92 kg/m2 Ji Villa MD, PhD Work Phone: [facility] 10-29-2023 08:57-0400 Body weight 89.72 kg Ji Villa MD, PhD Work Phone: [facility] 10-17-2023 16:21-0400 Body temperature 97.59 [degF] Placido Mata MD Work Phone: [facility] 10-17-2023 16:21-0400 Diastolic blood pressure 63 mm[Hg] Placido Mata MD Work Phone: [facility] 10-17-2023 16:21-0400 Heart rate 65 /min Placido Mata MD Work Phone: [facility] 10-17-2023 16:21-0400 Respiratory rate 18 /min Placido Mata MD Work Phone: [facility] 10-17-2023 16:21-0400 SaO2% (BldA) [Mass fraction] 95 % Placido Mata MD Work Phone: [facility] 10-17-2023 16:21-0400 Systolic blood pressure 131 mm[Hg] Placido Mata MD Work Phone: [facility] 10-16-2023 18:03-0400 Body height 165.1 cm Placido Mata MD Work Phone: [facility] 10-16-2023 18:03-0400 Body mass index (BMI) [Ratio] 33.68 kg/m2 Placido Mata MD Work Phone: [facility] 10-16-2023 18:03-0400 Body weight 91.81 kg Placido Mata MD Work Phone: [facility] 10-09-2023 12:35-0400 Body temperature 97.7 [degF] [facility] 10-09-2023 12:35-0400 Diastolic blood pressure 63 mm[Hg] [facility] 10-09-2023 12:35-0400 Heart rate 64 /min [facility] 10-09-2023 12:35-0400 Respiratory rate 16 /min [facility] 10-09-2023 12:35-0400 SaO2% (BldA) [Mass fraction] 96 % [facility] 10-09-2023 12:35-0400 Systolic blood pressure 134 mm[Hg] [facility] 10-09-2023 09:03-0400 Body height 165.1 cm [facility] 10-09-2023 09:03-0400 Body mass index (BMI) [Ratio] 34.1 kg/m2 [facility] 10-09-2023 09:03-0400 Body weight 93.1 kg [facility] 05-31-2023 11:45-0500 Heart rate 63 /min Ji Villa MD, PhD Work Phone: [facility] 05-31-2023 11:45-0500 Respiratory rate 20 /min Ji Villa MD, PhD Work Phone: [facility] 05-31-2023 11:45-0500 SaO2% (BldA) [Mass fraction] 98 % Ji Villa MD, PhD Work Phone: [facility] 05-31-2023 08:00-0500 Body temperature 97.5 [degF] Ji Villa MD, PhD Work Phone: [facility] 05-31-2023 07:00-0500 Diastolic blood pressure 70 mm[Hg] Ji Villa MD, PhD Work Phone: [facility] 05-31-2023 07:00-0500 Systolic blood pressure 154 mm[Hg] Ji Villa MD, PhD Work Phone: [facility] 05-30-2023 18:00-0500 Body mass index (BMI) [Ratio] 35.11 kg/m2 Ji Villa MD, PhD Work Phone: [facility] 05-30-2023 18:00-0500 Body weight 95.7 kg Ji Villa MD, PhD Work Phone: [facility] 05-30-2023 01:46-0500 Body height 165.1 cm Ji Villa MD, PhD Work Phone: [facility] 05-29-2023 23:15-0500 Body temperature 98.1 [degF] PA Ganga Moy PA Work Phone: [facility] 05-29-2023 23:15-0500 Diastolic blood pressure 69 mm[Hg] PA Ganga Moy PA Work Phone: [facility] 05-29-2023 23:15-0500 Heart rate 66 /min PA Ganga Moy PA Work Phone: [facility] 05-29-2023 23:15-0500 Respiratory rate 16 /min PA Ganga Moy PA Work Phone: [facility] 05-29-2023 23:15-0500 Systolic blood pressure 145 mm[Hg] PA Ganga Moy PA Work Phone: [facility] 05-29-2023 23:14-0500 SaO2% (BldA) [Mass fraction] 94 % PA Ganga Moy PA Work Phone: [facility] 05-29-2023 19:15-0500 Body height 165.1 cm PA Ganga Omy PA Work Phone: [facility] 05-29-2023 19:15-0500 Body mass index (BMI) [Ratio] 33.3 kg/m2 PA Ganga Moy PA Work Phone: [facility] 05-29-2023 19:15-0500 Body weight 90.71 kg PA Ganga Moy PA Work Phone: [facility] 02-17-2023 10:30-0400 Body mass index (BMI) [Ratio] 34.1 kg/m2 PA Ganga Moy PA Work Phone: [facility] 02-17-2023 10:30-0400 Body weight 92.98 kg PA Ganga Moy PA Work Phone: [facility] 02-17-2023 10:30-0400 Diastolic blood pressure 81 mm[Hg] PA Ganga Moy PA Work Phone: [facility] 02-17-2023 10:30-0400 Heart rate 60 /min PA Ganga Moy PA Work Phone: [facility] 02-17-2023 10:30-0400 Respiratory rate 20 /min PA Ganga Moy PA Work Phone: [facility] 02-17-2023 10:30-0400 Systolic blood pressure 152 mm[Hg] PA Ganga Moy PA Work Phone: [facility] 01-23-2023 09:33-0400 Body height 165.1 cm Ganga Raymond Moy PA-C Work Phone: [employer]; [employer]. 01-23-2023 09:33-0400 Body mass index (BMI) [Ratio] 34.28 kg/m2 Ganga Raymond Moy PA-C Work Phone: [employer].; [employer] [facility]. 01-23-2023 09:33-0400 Body surface area Derived from formula 2 m2 Ganga J Moy PA-C Work Phone: [employer].; [employer]. 01-23-2023 09:33-0400 Body weight 93.44 kg Ganga Raymond Moy PA-C Work Phone: [employer].; [employer]. 01-23-2023 09:33-0400 Diastolic blood pressure 74 mm[Hg] Ganga Raymond Moy PA-C Work Phone: [employer]; [employer]. Comment on above: Patient Position: Sitting; Cuff Location : Right Arm; Cuff Size: Standard 01-23-2023 09:33-0400 Heart rate 53 /min Ganga J Moy PA-C Work Phone: [employer].; [employer]. Comment on above: Pattern: Regular 01-23-2023 09:33-0400 Systolic blood pressure 130 mm[Hg] Ganga J Moy PA-C Work Phone: [employer].; [employer]. Comment on above: Patient Position: Sitting; Cuff Location : Right Arm; Cuff Size: Standard 12-30-2021 08:29-0400 Body height 165.1 cm Ganga J Moy PA-C Work Phone: [employer].; [employer] [facility]. 12-30-2021 08:29-0400 Body mass index (BMI) [Ratio] 33.11 kg/m2 Ganga J Moy PA-C Work Phone: [employer].; [employer] [facility]. 12-30-2021 08:29-0400 Body surface area Derived from formula 1.97 m2 Ganga J Moy PA-C Work Phone: [employer].; [employer] [facility]. 12-30-2021 08:29-0400 Body weight 90.27 kg Ganga J Moy PA-C Work Phone: [employer].; [employer] [facility]. 12-30-2021 08:29-0400 Diastolic blood pressure 79 mm[Hg] Ganga J Moy PA-C Work Phone: [employer].; [employer]. Comment on above: Patient Position: Sitting; Cuff Location : Left Arm; Cuff Size: Standard 12-30-2021 08:29-0400 Heart rate 61 /min Ganga J Moy PA-C Work Phone: [employer].; [employer]. Comment on above: Pattern: Regular 12-30-2021 08:29-0400 Systolic blood pressure 135 mm[Hg] Ganga Moy PA-C Work Phone: [facility].; [employer]. Comment on above: Patient Position: Sitting; Cuff Location : Left Arm; Cuff Size: Standard 04-29-2021 11:27-0500 Body height 165.1 cm Noni Kerrlabach [facility], [employer].; [employer]. 04-29-2021 11:27-0500 Body mass index (BMI) [Ratio] 32.95 kg/m2 [facility] [employer] [facility].; [employer]. 04-29-2021 11:27-0500 Body surface area Derived from formula 1.97 m2 Noni Kerrmark [facility] [employer] [facility].; [employer]. 04-29-2021 11:27-0500 Body temperature 97.3 [degF] Nonibetrha Nicole [facility] [employer] [facility].; [employer]. Comment on above: Method: Tympanic 04-29-2021 11:27-0500 Body weight 89.81 kg Noni Kerrlabach AMBULANCE ASSISTANT [place] [employer] [facility], [employer].; [employer]. 04-29-2021 11:27-0500 Diastolic blood pressure 82 mm[Hg] Noni Kerrlabach AMBULANCE ASSISTANT [place] [employer] [facility], [employer].; [employer]. Comment on above: Patient Position: Sitting; Cuff Location : Left Arm; Cuff Size: Standard 04-29-2021 11:27-0500 Heart rate 59 /min Noni Liliana Nicole LPN [place] [employer] [facility], [employer].; [employer]. Comment on above: Pattern: Regular 04-29-2021 11:27-0500 Systolic blood pressure 149 mm[Hg] Noni Kerrlabach AMBULANCE ASSISTANT [place] [employer]. Comment on above: Patient Position: Sitting; Cuff Location : Left Arm; Cuff Size: Standard 12-24-2020 09:43-0400 Body height 165.1 cm Noni Ford Corey AMBULANCE ASSISTANT [place] [employer] [facility] CenterBe[facility].; [employer]. 12-24-2020 09:43-0400 Body mass index (BMI) [Ratio] 32.95 kg/m2 Noni Ford Corey [facility].; [facility]. 12-24-2020 09:43-0400 Body surface area Derived from formula 1.97 m2 Noni Ford Corey [facility].; [place] [employer] [facility]. 12-24-2020 09:43-0400 Body weight 89.81 kg Noni Ford Corey [facility].; [place] [employer] [facility]. 12-24-2020 09:43-0400 Diastolic blood pressure 76 mm[Hg] Noni Ford Corey [facility].; [place] [employer] [facility] CenterShenzhen [employer] [facility]. Comment on above: Patient Position: Sitting; Cuff Location : Right Arm; Cuff Size: Standard 12-24-2020 09:43-0400 Heart rate 54 /min Noni Ford Corey [facility].; [place] [employer] [facility] CenterBe[facility]inder. Comment on above: Pattern: Regular 12-24-2020 09:43-0400 Systolic blood pressure 134 mm[Hg] Noni Ford Corey AMBULANCE ASSISTANT [facility].; [place] [employer] [facility] CenterShen[facility]hen [employer] [facility]. Comment on above: Patient Position: Sitting; Cuff Location : Right Arm; Cuff Size: Standard 12-01-2019 08:36-0400 Body height 165.1 cm Mily Andrade Corona PA-C Work Phone: [facility] Hospital[facility] [employer] [facility].; [place] [employer] [facility] CenterShen[facility]hen [facility] [employer] [facility]. 12-01-2019 08:36-0400 Body mass index (BMI) [Ratio] 34.45 kg/m2 Mily Raymond Corona PA-C Work Phone: [place] [employer] [facility] CenterBe[facility].; [place] [employer] [facility]. 12-01-2019 08:36-0400 Body surface area Derived from formula 2.01 m2 Mily J Corona PA-C Work Phone: [employer].; [employer]. 12-01-2019 08:36-0400 Body weight 93.9 kg Mily Raymond Corona PA-C Work Phone: [place] [employer].; [employer]. 12-01-2019 08:36-0400 Diastolic blood pressure 78 mm[Hg] Mily Corona PA-C Work Phone: [place] [employer].; [employer]. Comment on above: Patient Position: Sitting; Cuff Location : Left Arm; Cuff Size: Standard 12-01-2019 08:36-0400 Heart rate 59 /min Mily Corona PA-C Work Phone: [place] [employer].; [employer]. Comment on above: Pattern: Regular 12-01-2019 08:36-0400 Systolic blood pressure 142 mm[Hg] Mily Corona PA-C Work Phone: [place] [employer].; [employer]. Comment on above: Patient Position: Sitting; Cuff Location : Left Arm; Cuff Size: Standard 11-18-2018 09:26-0400 Body height 165.1 cm Maisha Sheffield LPN [place] [employer] [facility], Inc.; [employer] 11-18-2018 09:26-0400 Body mass index (BMI) [Ratio] 33.78 kg/m2 Maisha [facility] [facility], Inc.; [employer] 11-18-2018 09:26-0400 Body surface area Derived from formula 1.99 m2 Maisha Sheffield LPN [place] [employer] [facility], Inc.; [employer] 11-18-2018 09:26-0400 Body weight 92.08 kg Maisha Sheffield [facility] [email or web address], [employer].; [employer]. 11-18-2018 09:26-0400 Diastolic blood pressure 85 mm[Hg] Maisha Sheffield LPN [place] [email or web address]. Comment on above: Patient Position: Sitting; Cuff Location : Left Arm; Cuff Size: Standard 11-18-2018 09:26-0400 Heart rate 60 /min Maisha Sheffield LPN [facility], Inc.; DanielSayduck [facility] CenterBeeminder. Comment on above: Pattern: Regular 11-18-2018 09:26-0400 Systolic blood pressure 144 mm[Hg] Maisha Alfarochrisshayne GEM [facility], [facility].; [place] [employer] [facility] CenterBeeminder. Comment on above: Patient Position: Sitting; Cuff Location : Left Arm; Cuff Size: Standard 11-16-2017 09:27-0400 Body height 165.1 cm Maisha Sheffield LPN [facility], Inc.; [place] [employer] [facility], Inc[employer] 11-16-2017 09:27-0400 Body mass index (BMI) [Ratio] 35.98 kg/m2 Maishaben Sheffield [facility], Inc.; [place] [employer] [facility], [employer]. 11-16-2017 09:27-0400 Body surface area Derived from formula 2.04 m2 Maisha Sheffield LPN [facility], [facility].; [place] [employer] [facility], [employer]. 11-16-2017 09:27-0400 Body weight 98.06 kg Maishaben Sheffield LPOr[facility], [facility].; [place] [email or web address], [employer]. 11-16-2017 09:27-0400 Diastolic blood pressure 83 mm[Hg] Maisha Nettie RABAGO [facility], [facility].; [place] [employer] [facility], [employer]. Comment on above: Patient Position: Sitting; Cuff Location : Left Arm; Cuff Size: Standard 11-16-2017 09:27-0400 Heart rate 59 /min Maisha Sheffield LPN [facility], Inc.; [place] [employer]. Comment on above: Pattern: Regular 11-16-2017 09:27-0400 Systolic blood pressure 134 mm[Hg] Maisha Nettie RABAGO [facility], [facility].; [place] [employer]. Comment on above: Patient Position: Sitting; Cuff Location : Left Arm; Cuff Size: Standard 03-13-2017 11:36-0400 BMI (Body Mass Index) 36.11 kg/m2 [facility] [employer] Work Phone: 03-13-2017 11:36-0400 BP Diastolic 78 mm[Hg] [facility] Work Phone: 03-13-2017 11:36-0400 BP Systolic 120 mm[Hg] [facility] Work Phone: 03-13-2017 11:36-0400 Height 165.1 cm [facility] Work Phone: 03-13-2017 11:36-0400 Pulse (Heart Rate) 54 /min [facility] Work Phone: 03-13-2017 11:36-0400 Respiratory Rate 18 /min [facility] Work Phone: 03-13-2017 11:36-0400 Weight 98.43 kg [facility] Work Phone: 11-14-2016 08:34-0400 Body height 165.1 cm Ganga Andrade Moy PA-C Work Phone: [employer]; [employer]. 11-14-2016 08:34-0400 Body mass index (BMI) [Ratio] 34.45 kg/m2 Ganga Andrade Moy PA-C Work Phone: [employer]; [employer]. 11-14-2016 08:34-0400 Body surface area Derived from formula 2.01 m2 Ganga Andrade Moy PA-C Work Phone: [employer]; [employer]. 11-14-2016 08:34-0400 Body weight 93.9 kg Ganga Andrade Moy PA-C Work Phone: [employer]; [employer]. 11-14-2016 08:34-0400 Diastolic blood pressure 80 mm[Hg] Ganga Andrade Moy PA-C Work Phone: [employer]; [employer]. Comment on above: Patient Position: Sitting; Cuff Location : Left Arm; Cuff Size: Standard 11-14-2016 08:34-0400 Heart rate 71 /min Ganga Raymond Moy PA-C Work Phone: [employer].; [employer]. Comment on above: Pattern: Regular 11-14-2016 08:34-0400 Systolic blood pressure 120 mm[Hg] Ganga Andrade Moy PA-C Work Phone: [employer].; [employer]. Comment on above: Patient Position: Sitting; Cuff Location : Left Arm; Cuff Size: Standard 09-04-2016 13:32-0400 BMI (Body Mass Index) 35.01 kg/m2 Katty Mejia [employer] Work Phone: 09-04-2016 13:32-0400 BP Diastolic 70 mm[Hg] Katty Llanos RN [facility] Work Phone: 09-04-2016 13:32-0400 BP Systolic 130 mm[Hg] Katty [facility] Work Phone: 09-04-2016 13:32-0400 Height 165.1 cm Katty Llanos RN [facility] Work Phone: 09-04-2016 13:32-0400 Pulse (Heart Rate) 64 /min Katty [facility] Work Phone: 09-04-2016 13:32-0400 Respiratory Rate 20 /min Katty Llanos RN [facility] Work Phone: 09-04-2016 13:32-0400 Weight 95.44 kg Katty Llanos RN [facility] Work Phone: 07-09-2016 11:24-0500 Body height 160.66 cm Ganga Moy PA-C Work Phone: [facility].; [facility]. 07-09-2016 11:24-0500 Body mass index (BMI) [Ratio] 36.38 kg/m2 Ganga Moy PA-C Work Phone: [facility].; [employer]. 07-09-2016 11:24-0500 Body surface area Derived from formula 1.97 m2 Ganga Moy PA-C Work Phone: [employer]; [facility]. 07-09-2016 11:24-0500 Body temperature 101.3 [degF] Ganga Moy PA-C Work Phone: [facility]; [facility]. 07-09-2016 11:24-0500 Body weight 93.9 kg Ganga Moy PA-C Work Phone: [facility]; [facility]. 07-09-2016 11:24-0500 Diastolic blood pressure 77 mm[Hg] Ganga Moy PA-C Work Phone: [facility]; [facility]. Comment on above: Patient Position: Sitting; Cuff Location : Left Arm; Cuff Size: Standard 07-09-2016 11:24-0500 Heart rate 86 /min Ganga Westbrooker PA-C Work Phone: [facility]; [facility] Comment on above: Pattern: Regular 07-09-2016 11:24-0500 Systolic blood pressure 138 mm[Hg] Ganga Moy PA-C Work Phone: [facility]; [facility] Comment on above: Patient Position: Sitting; Cuff Location : Left Arm; Cuff Size: Standard 04-22-2016 16:28-0500 Heart rate 65 /min [facility] Work Phone: 04-22-2016 15:15-0500 BSA (Body Surface Area) 2.01 m2 [facility] Work Phone: 04-22-2016 15:15-0500 Pulse Oximetry 98 % Katty Wheeleroster [employer] Work Phone: 07-05-2015 09:42-0500 Body height 160.66 cm Maisha Sheffield LPN [facility]; [facility]. 07-05-2015 09:42-0500 Body mass index (BMI) [Ratio] 37.83 kg/m2 Maisha Alfarochrisshayne GEM [facility] [employer], [employer]. 07-05-2015 09:42-0500 Body surface area Derived from formula 2 m2 Maisha Fisherenrique RABAGO [facility] [employer], [employer] 07-05-2015 09:42-0500 Body weight 97.64 kg Maisha Fisherjeffshayne [facility] [employer] [facility], [facility].; [employer], [employer]. 07-05-2015 09:42-0500 Diastolic blood pressure 91 mm[Hg] Maisha Alfaroedward [facility] [employer] [facility], [employer].; [employer]. Comment on above: Patient Position: Sitting; Cuff Location : Left Arm; Cuff Size: Standard 07-05-2015 09:42-0500 Heart rate 67 /min Maisha [facility]faroedward [facility] [employer].; [employer]. Comment on above: Pattern: Regular 07-05-2015 09:42-0500 Systolic blood pressure 153 mm[Hg] Maisha Fisherjeffshayne GEM [place] [employer] [facility], [employer].; [employer]. Comment on above: Patient Position: Sitting; Cuff Location : Left Arm; Cuff Size: Standard 04-14-2014 10:31-0500 Body height 163.88 cm Maisha Alfaroedward RABAGO [place] [employer] [facility] [employer], [employer]. 04-14-2014 10:31-0500 Body temperature 98.3 [degF] Maisha Fisherenrique RABAGO [place] [employer] [facility], [employer].; [employer]. Comment on above: Method: Tympanic 04-14-2014 10:31-0500 Diastolic blood pressure 82 mm[Hg] Maisha Fisherjeffshayne AMBULANCE ASSISTANT Daniel [employer] [facility], [employer].; [employer]. Comment on above: Patient Position: Sitting; Cuff Location : Left Arm; Cuff Size: Standard 04-14-2014 10:31-0500 Heart rate 64 /min Maisha Fisherenrique RABAGO [place] [employer] [facility], [employer].; [employer]. Comment on above: Pattern: Regular 04-14-2014 10:31-0500 Systolic blood pressure 139 mm[Hg] [facility] Sheffield [facility]. Comment on above: Patient Position: Sitting; Cuff Location : Left Arm; Cuff Size: Standard 01-20-2014 08:53-0400 Heart rate 419 ms Katty Llanos RN [facility] Work Phone: 09-02-2013 10:22-0400 Body temperature 98.6 [degF] Becky [facility]ral [facility]. 09-02-2013 10:22-0400 Body weight 99.34 kg Becky [facility]ral [facility]. 09-02-2013 10:22-0400 Diastolic blood pressure 78 mm[Hg] [facility]. Comment on above: Patient Position: Sitting; Cuff Location : Left Arm; Cuff Size: Standard 09-02-2013 10:22-0400 Heart rate 67 /min Becky Corral AMBULANCE ASSISTANT [employer].; [employer]. Comment on above: Pattern: Regular 09-02-2013 10:22-0400 Systolic blood pressure 145 mm[Hg] [facility]ral [facility]. Comment on above: Patient Position: Sitting; Cuff Location : Left Arm; Cuff Size: Standard 08-12-2012 09:05-0500 Body height 163.83 cm Ganga Moy PA-C Work Phone: [facility].; [facility]. 08-12-2012 09:05-0500 Body mass index (BMI) [Ratio] 35.7 kg/m2 Ganga Moy PA-C Work Phone: [employer].; [facility]. 08-12-2012 09:05-0500 Body surface area Derived from formula 2.01 m2 Ganga Moy PA-C Work Phone: [facility].; [facility]. 08-12-2012 09:05-0500 Body temperature 98.9 [degF] Ganga Wesbtrooker PA-C Work Phone: [employer]; [employer]. Comment on above: Method: Tympanic 08-12-2012 09:05-0500 Body weight 95.82 kg Ganga Westbrooker PA-C Work Phone: [employer].; [employer]. 08-12-2012 09:05-0500 Diastolic blood pressure 84 mm[Hg] Ganga Westbrooker PA-C Work Phone: [employer]; [employer]. Comment on above: Patient Position: Sitting; Cuff Location : Left Arm; Cuff Size: Standard 08-12-2012 09:05-0500 Heart rate 55 /min Ganga Westbrooker PA-C Work Phone: [employer]; [employer]. Comment on above: Pattern: Regular 08-12-2012 09:05-0500 Systolic blood pressure 132 mm[Hg] Ganga Westbrooker PA-C Work Phone: [employer]; [employer]. Comment on above: Patient Position: Sitting; Cuff Location : Left Arm; Cuff Size: Standard 09-26-2011 09:10-0400 Body height 163.83 cm Nandini Aguielra LPN [place] [employer] [facility], [facility].; [employer]. 09-26-2011 09:10-0400 Body mass index (BMI) [Ratio] 34.31 kg/m2 Nandini Aguilera LPN [employer] [facility].; [employer]. 09-26-2011 09:10-0400 Body surface area Derived from formula 1.98 m2 Nandini Aguilera LPN [employer] [facility].; [employer]. 09-26-2011 09:10-0400 Body weight 92.08 kg Nandini Aguilera LPN [place] [employer].; [employer]. 09-26-2011 09:10-0400 Diastolic blood pressure 73 mm[Hg] Nandini L Richert AMBULANCE ASSISTANT [employer], [employer], [employer]. Comment on above: Patient Position: Sitting; Cuff Location : Left Arm; Cuff Size: Standard 09-26-2011 09:10-0400 Heart rate 59 /min Nandini L Richert AMBULANCE ASSISTANT [place] [employer] [facility], [facility].; [employer], [employer] Comment on above: Pattern: Regular 09-26-2011 09:10-0400 Systolic blood pressure 130 mm[Hg] Nandini L Richert AMBULANCE ASSISTANT [employer], [employer] Comment on above: Patient Position: Sitting; Cuff Location : Left Arm; Cuff Size: Standard 03-21-2011 08:36-0400 Body weight 94.17 kg Nandini L Richert AMBULANCE ASSISTANT Daniel [email or web address] 03-21-2011 08:36-0400 Diastolic blood pressure 74 mm[Hg] Nandini L Richert AMBULANCE ASSISTANT [employer], [employer] Comment on above: Patient Position: Sitting; Cuff Location : Left Arm; Cuff Size: Standard 03-21-2011 08:36-0400 Heart rate 66 /min Nandini L Richert AMBULANCE ASSISTANT [employer], [employer]. Comment on above: Pattern: Regular 03-21-2011 08:36-0400 Systolic blood pressure 140 mm[Hg] Nandini L Richert AMBULANCE ASSISTANT [employer], [employer] Comment on above: Patient Position: Sitting; Cuff Location : Left Arm; Cuff Size: Standard 09-16-2010 12:59-0400 Body weight 90.72 kg Becky Corral LPN [employer], [employer]. 09-16-2010 12:59-0400 Diastolic blood pressure 79 mm[Hg] Becky Corral LPN [employer], [employer].; [employer], [employer]. Comment on above: Patient Position: Sitting; Cuff Location : Left Arm; Cuff Size: Standard 09-16-2010 12:59-0400 Heart rate 61 /min Becky Corral LPN [employer], [employer].; [employer], [employer]. Comment on above: Pattern: Regular 09-16-2010 12:59-0400 Systolic blood pressure 137 mm[Hg] Becky Corral LPN [employer].; [employer]. Comment on above: Patient Position: Sitting; Cuff Location : Left Arm; Cuff Size: Standard 09-04-2010 11:18-0400 Body height 160.66 cm Ganga Moy PA-C Work Phone: [facility].; [facility]. 09-04-2010 11:18-0400 Body mass index (BMI) [Ratio] 34.62 kg/m2 Ganga Moy PA-C Work Phone: [employer].; [employer]. 09-04-2010 11:18-0400 Body surface area Derived from formula 1.93 m2 Ganga Moy PA-C Work Phone: [facility].; [facility]. 09-04-2010 11:18-0400 Body weight 89.36 kg Ganga Moy PA-C Work Phone: [facility].; [facility]. 09-04-2010 11:18-0400 Diastolic blood pressure 84 mm[Hg] Ganga Moy PA-C Work Phone: [facility].; [facility]. Comment on above: Patient Position: Sitting; Cuff Location : Left Arm; Cuff Size: Standard 09-04-2010 11:18-0400 Heart rate 76 /min Ganga Moy PA-C Work Phone: [facility].; [facility]. Comment on above: Pattern: Regular 09-04-2010 11:18-0400 Systolic blood pressure 124 mm[Hg] Ganga Moy PA-C Work Phone: [facility].; [facility]. Comment on above: Patient Position: Sitting; Cuff Location : Left Arm; Cuff Size: Standard Encounters Encounter Date Encounter Type Care Provider Facility Start: 10-21-2024 End: 10-21-2024 Historical Summary Ganga Moy PA-C [facility] Start: 10-20-2024 End: 10-20-2024 Orders Ganga Moy PA-C Work Phone: [facility]. Start: 09-29-2024 End: 09-29-2024 Office outpatient visit 25 minutes Ganga Moy PA-C Work Phone: [employer]. Start: 09-29-2024 Review Gagna Moy PA-C Work Phone: [facility] Start: 09-08-2024 ambulatory Ganga Moy PA Facil ity:[facility] Start: 08-25-2024 End: 08-26-2024 ambulatory [facility] Start: 08-22-2024 End: 08-22-2024 ambulatory [facility] Start: 08-19-2024 End: 08-20-2024 Office outpatient visit 25 minutes Ganga Moy PA-C Work Phone: [facility] Start: 08-19-2024 Telephone follow-up Ganga Kristian lmer PA-C Work Phone: [employer] Start: 08-16-2024 End: 08-16-2024 Patient encounter procedure Ganga Moy PA-C Work Phone: [facility]. Start: 08-01-2024 End: 08-01-2024 Telephone follow-up Ganga Moy PA-C Work Phone: [facility] Start: 07-26-2024 End: 07-29-2024 Evaluation and management of inpatient Key Cope MD Work Phone: [id number] Comment on above: Aneurysm Start: 07-25-2024 End: 07-26-2024 ambulatory Ganga Moy PA Facility:[facility] Start: 07-22-2024 End: 07-22-2024 Office outpatient visit 25 minutes Ganga Moy PA-C Work Phone: [facility] Start: 07-22-2024 Patient encounter procedure Ganga Moy DARLENE Work Phone: [facility] Start: 07-21-2024 End: 07-21-2024 Office outpatient visit 25 minutes Ji Villa MD, PhD Work Phone: [facility] Comment on above: Confusion (Primary D x); Memory loss; Personality change Start: 07-21-2024 ambulatory GANGA Matos ty:[facility] Start: 07-21-2024 ambulatory BRUCE Matos ty:[facility] Start: 07-21-2024 End: 07-21-2024 Subsequent hospital visit by physician Bruce ESTRADA Work Phone: [facility] [place] Comment on above: Arrived Start: 07-05-[address] [facility] Start: 06-30-2024 End: 06-30-2024 ambulatory GANGA MOY [facility] Start: 06-30-2024 End: 06-30-2024 Periodic preventive med est patient 65yrs& older Ganga Chinmay TOWNSEND-Teri Work Phone: [facility] Start: 06-30-2024 End: 06-30-2024 Physical examination Ganga Chinmay COLON Work Phone: [facility]; [facility]. Start: 06-23-2024 ambulatory BRUCE Matos ty:[facility] Start: 05-09-2024 End: 05-09-2024 Orders Ganga Chinmay TOWNSEND-Teri Work Phone: [facility] Start: 03-17-2024 ambulatory GANGA Matos ty:[facility] Start: 03-17-2024 End: 03-17-2024 Office outpatient visit 25 minutes Ji Villa MD, PhD Work Phone: [facility] Comment on above: Brain aneurysm (Prim josue Dx) Start: 03-17-2024 ambulatory BRUCE Matos ty:[facility] Start: 03-17-2024 End: 03-17-2024 Subsequent hospital visit by physician Bruce Louise WILDLIFE PROTECTOR-SR SOLUTIONS CONSULTANT Work Phone: [facility] Comment on above: Arrived Start: 01-28-2024 End: 01-28-2024 Office outpatient visit 15 minutes Ji Villa MD, PhD Work Phone: [facility]rological [facility] Comment on above: Cerebral aneurysm, n onruptured (Primary Dx) Start: 01-28-2024 ambulatory GANGA Matos ty:[facility] Start: 01-28-2024 ambulatory BRUCE Matos ty:[facility] Start: 01-28-2024 End: 01-28-2024 Subsequent hospital visit by physician Bruce Louise WILDLIFE PROTECTOR-SR SOLUTIONS CONSULTANT Work Phone: [facility] Comment on above: Arrived Start: 12-24-2023 End: 12-24-2023 Office outpatient visit 15 minutes Bruce Louise WILDLIFE PROTECTOR-SR SOLUTIONS CONSULTANT Work Phone: [facility] Comment on above: Brain aneurysm (Prim josue Dx) Start: 12-24-2023 ambulatory JI VILLA Facilit y:[facility] Start: 11-30-2023 End: 11-30-2023 Office outpatient visit 25 minutes Ganga Moy PA-C Work Phone: [facility]. Start: 11-30-2023 Review Ganga Moy PA-C Work Phone: [facility]. Start: 11-23-2023 End: 11-23-2023 Telephone follow-up Ganga Moy PA-C Work Phone: [facility]. Start: 11-20-2023 End: 11-21-2023 Evaluation and management of inpatient Ji Villa MD, PhD Work Phone: [facility] Comment on above: Cerebral aneurysm, n onruptured Start: 11-17-2023 End: 11-17-2023 ambulatory DALJIT HAWTHORNE Facility:[facility] Start: 11-17-2023 End: 11-17-2023 Subsequent hospital visit by physician Daljit Hawthorne MD Work Phone: [facility] Comment on above: Encounter for follow -up Start: 11-17-2023 End: 11-17-2023 Office outpatient visit 40 minutes Mac Burch MD, PhD Work Phone: [facility] Comment on above: Encounter for follow -up (Primary Dx) Start: 11-17-2023 ambulatory GANGA MOY Facili ty:[facility] Start: 11-04-2023 ambulatory JI VILLA Facilit y:[facility] Start: 10-29-2023 End: 10-29-2023 ambulatory GANGA MOY Facility:[facility] Start: 10-29-2023 End: 10-29-2023 Subsequent hospital visit by physician Ji Villa MD, PhD Work Phone: [facility] Comment on above: Cerebral aneurysm, n onruptured Start: 10-16-2023 End: 10-17-2023 ambulatory GANGA MOY Facility:[facility] Start: 10-16-2023 End: 10-17-2023 Emergency department patient visit Placido Mata MD Work Phone: [facility] Comment on above: Optic neuropathy Start: 10-12-2023 End: 10-12-2023 Telephone follow-up Ganga Moy PA-C Work Phone: [facility], [employer]. Start: 10-09-2023 End: 10-09-2023 Emergency department patient visit [facility] Work Phone: Start: 09-25-2023 End: 09-25-2023 ambulatory DARIUS RAMEY [facility] Start: 06-17-2023 End: 06-17-2023 Telephone follow-up Ganga Moy PA-C Work Phone: [facility]. Start: 05-30-2023 End: 05-30-2023 ambulatory UNKNOWN PROVIDER Facility:[facility] Start: 05-30-2023 End: 05-31-2023 Evaluation and management of inpatient Ji Villa MD, PhD Work Phone: [id number] Comment on above: Aneurysm Start: 05-29-2023 End: 05-29-2023 Emergency department patient visit PA Gangasuhail Moy KRISTIAN Work Phone: [facility]-Emergency Department Work Phone: Start: 05-29-2023 End: 05-29-2023 Patient encounter procedure PA Ganga Moy KRISTIAN Work Phone: [facility]-MRI - [facility] Work Phone: Start: 05-28-2023 End: 05-28-2023 ambulatory [facility] Work Phone: Start: 05-28-2023 End: 05-28-2023 Patient encounter procedure KRISTIAN TOWNSEND Work Phone: [facility]-Laboratory Work Phone: Start: 02-25-2023 End: 02-25-2023 Orders Ganga [facility] PA-C [facility] Start: 02-17-2023 End: 02-17-2023 Patient encounter procedure PA Ganga Moy KRISTIAN Work Phone: [facility] Work Phone: Start: 01-23-2023 End: 01-23-2023 Patient encounter procedure Ganga Westbrooker PA-C Work Phone: [facility] Start: 12-11-2022 End: 12-11-2022 Orders Ganga Westbrooker PA-C Work Phone: [facility] Start: 12-30-2021 End: 12-30-2021 Manual pelvic examination Brea Coon MA [facility] Start: 12-30-2021 End: 12-30-2021 Patient encounter procedure Ganga Westbrooker PA-C Work Phone: [facility]. Start: 10-16-2021 End: 10-16-2021 Orders Ganga Westbrooker PA-C Work Phone: [facility]. Start: 04-29-2021 End: 04-29-2021 Office outpatient visit 15 minutes Ganga Westbrooker PA-C Work Phone: [facility]. Start: 12-24-2020 End: 12-24-2020 Manual pelvic examination Ganga Westbrooker PA-C Work Phone: [facility].; [facility]. Start: 12-24-2020 End: 12-24-2020 Patient encounter procedure Ganga Westbrooker PA-C Work Phone: [facility]. Start: 12-14-2020 End: 12-17-2020 Orders Ganga Moy PA-C Work Phone: [facility]. Start: 12-01-2019 End: 12-01-2019 Patient encounter procedure Ganga Moy PA-C Work Phone: [facility]; [facility]. Start: 12-01-2019 End: 12-01-2019 Periodic preventive med est patient 40-64yrs Ganga Westbrooker PA-C Work Phone: [facility]. Start: 11-16-2019 End: 11-16-2019 Orders Ganga Moy PA-C Work Phone: [facility]. Start: 11-14-2019 End: 11-14-2019 Orders Ganga Moy PA-C Work Phone: [facility]. Start: 11-11-2019 End: 11-11-2019 Historical Summary Ganga Moy PA-C Work Phone: [facility] Start: 07-26-2019 End: 07-26-2019 Telephone follow-up Ganga Moy PA-C Work Phone: [facility] Start: 07-19-2019 End: 07-19-2019 Emergency department patient visit [facility] Emergency Dept Start: 02-25-2019 End: 02-25-2019 Orders Ganga Moy PA-C Work Phone: [facility]. Start: 12-10-2018 End: 12-15-2018 Orders Ganga Moy PA-C Work Phone: [facility]. Start: 12-07-2018 End: 12-07-2018 Historical Summary Ganga Moy PA-C Work Phone: [facility]. Start: 11-18-2018 End: 11-19-2018 Patient encounter procedure Ganga Moy PA-C Work Phone: [facility]. Start: 11-16-2017 End: 11-16-2017 Patient encounter procedure Ganga Moy PA-C Work Phone: [facility].; [facility]. Start: 11-16-2017 End: 11-16-2017 Periodic preventive med est patient 40-64yrs Ganga Westbrooker PA-C Work Phone: [facility]. Start: 10-14-2017 End: 10-14-2017 Orders Ganga Moy PA-C Work Phone: [facility]. Start: 11-13-2016 End: 11-14-2016 Patient encounter procedure Ganga Moy PA-C Work Phone: [facility].; [facility]. Start: 11-13-2016 End: 11-14-2016 Periodic preventive med est patient 40-64yrs Ganga Westbrooker PA-C Work Phone: [facility]. Start: 11-04-2016 End: 11-05-2016 Orders Ganga Westbrooker PA-C Work Phone: [facility]. Start: 07-09-2016 End: 07-09-2016 Patient encounter procedure Ganga Westbrooker PA-C Work Phone: [facility] Start: 07-05-2015 End: 07-05-2015 Patient encounter procedure Ganga Westbrooker PA-C Work Phone: [facility]. Start: 06-14-2015 End: 06-15-2015 Orders Gangasuhail Westbrooker PA-C Work Phone: [facility]. Start: 04-14-2014 End: 04-14-2014 Patient encounter procedure Ganga Westbrooker PA-C Work Phone: [employer]. Start: 09-02-2013 End: 09-02-2013 Patient encounter procedure Ganga Westbrooker PA-C Work Phone: [facility]. Start: 09-02-2012 End: 09-02-2012 Laboratory examination ordered as part of a routine general medical examination Ganga Westbrooker PA-C Work Phone: [facility].; [facility]. Start: 09-02-2012 End: 09-02-2012 Orders Ganga Westbrooker PA-C Work Phone: [facility]. Start: 08-12-2012 End: 08-12-2012 Patient encounter procedure Ganga Westbrooker PA-C Work Phone: [facility]. Start: 09-26-2011 End: 09-26-2011 Patient encounter procedure Ganga Westbrooker PA-C Work Phone: [facility]. Start: 03-21-2011 End: 03-21-2011 Patient encounter procedure Gangasuhail Westbrooker PA-C Work Phone: [facility]. Start: 02-06-2011 End: 02-06-2011 Orders Ganga Moy PA-C Work Phone: [facility]. Start: 09-16-2010 End: 09-16-2010 Patient encounter procedure Ganga Moy PA-C Work Phone: [facility]. Start: 09-10-2010 End: 09-11-2010 Orders Ganga Moy PA-C Work Phone: [facility] Start: 09-04-2010 End: 09-05-2010 Patient encounter procedure Ganga Moy PA-C Work Phone: [facility] Laboratory examination ordered as part of a routine general medical examination Maisha Sheffield LPN [facility]; [facility] Laboratory examination ordered as part of a routine general medical examination [facility]; [facility] Manual pelvic examination [facility]; [facility] Patient encounter procedure Ganga Moy PA-C Work Phone: [facility]; [facility] Patient encounter procedure Mily Corona PA-C Work Phone: [facility] Patient encounter procedure [facility]; [facility] Physical examination Ganga acosta PA-C Work Phone: [facility]; [facility] Procedures Date Procedure Procedure Detail Performing Clinician Start: 08-03-2024 End: 08-03-2024 Most Recent Cardio Report Ganga Moy PA-C Work Phone: Start: 07-29-2024 Assay of magnesium Tayl or A Del WILDLIFE PROTECTOR-SR SOLUTIONS CONSULTANT Work Phone: Start: 07-28-2024 Assay of magnesium Tayl or A Del WILDLIFE PROTECTOR-SR SOLUTIONS CONSULTANT Work Phone: Start: 07-28-2024 Blood count complete automated Yaritza Bertha Del WILDLIFE PROTECTOR-SR SOLUTIONS CONSULTANT Work Phone: Start: 07-27-2024 Echo tthrc r-t 2d w/ wom-mode compl spec&colr d Ciera King WILDLIFE PROTECTOR-SR SOLUTIONS CONSULTANT Work Phone: Start: 07-27-2024 Assay of magnesium Tayl or A Del WILDLIFE PROTECTOR-SR SOLUTIONS CONSULTANT Work Phone: Start: 07-27-2024 EXTRA MICRO Ciera rouse WILDLIFE PROTECTOR-SR SOLUTIONS CONSULTANT Work Phone: Start: 07-27-2024 URINALYSIS REFLEX TO CULTURE Ciera King WILDLIFE PROTECTOR-SR SOLUTIONS CONSULTANT Work Phone: Start: 07-27-2024 Urnls dip stick/tabl et reagent auto microscopy Ciera King WILDLIFE PROTECTOR-SR SOLUTIONS CONSULTANT Work Phone: Start: 07-26-2024 Glucose measurement, blood Ji Villa MD, PhD Work Phone: Start: 07-26-2024 CARDIAC RHYTHM Other Ot her OT Start: 07-21-2024 Creatinine blood Bruce Louise WILDLIFE PROTECTOR-SR SOLUTIONS CONSULTANT Work Phone: Start: 06-30-2024 End: 06-30-2024 Depression screening Ganga Pearson Work Phone: Start: 06-30-2024 End: 06-30-2024 Flu immunize order/admin Ganga mayen PA-C Work Phone: Start: 06-30-2024 End: 06-30-2024 Lab findings surveillance Flakita christy RN Comment on above: 92 in CMP Start: 06-30-2024 End: 06-30-2024 Lipid panel Flakita Dick RN Comment on above: TC 180, HDL 74, LDL 84, Trig 123 Start: 06-30-2024 End: 06-30-2024 Pt falls assess docd w/o fall/injury past year Ganga Moy PA-C Work Phone: Start: 06-30-2024 End: 06-30-2024 Scr dep neg, no plan reqd Ganga aguilar PA-C Work Phone: Start: 06-30-2024 End: 06-30-2024 Screening mammography Flakita lowe RN Comment on above: Within Normal Limits . Start: 06-30-2024 End: 06-30-2024 Thyrotropin [Units/volume] in Serum or Plasma Flakita Dick RN Comment on above: Results:. 1.51 Start: 06-30-2024 End: 06-30-2024 vit D Flakita Dick RN Comment on above: Results:. 38 Start: 05-09-2024 End: 06-30-2024 Screening digital breast tomosynthesis bi Ganga Andrade Moy PA-C Work Phone: Start: 03-17-2024 Follow-up visit Follow-up JI VILLA Start: 03-17-2024 Creatinine blood Bruce R Constable WILDLIFE PROTECTOR-SR SOLUTIONS CONSULTANT Work Phone: Start: 01-28-2024 Creatinine blood Bruce R Constable WILDLIFE PROTECTOR-SR SOLUTIONS CONSULTANT Work Phone: Start: 11-20-2023 CARDIAC RHYTHM Other Ot her Start: 11-20-2023 End: 11-20-2023 ACT* LOW RANGE, POC Ji Villa MD, PhD Work Phone: Start: 10-29-2023 Electrolyte panel Bruce R Constable WILDLIFE PROTECTOR-SR SOLUTIONS CONSULTANT Work Phone: Start: 10-17-2023 Antibody treponema pallidum Domingo Delgado MD Work Phone: Start: 10-16-2023 End: 10-16-2023 Mri brain brain stem w/o w/contrast material Domingo Delgado MD Work Phone: Start: 10-16-2023 Ct angiography head w/contrast/noncontrast Daljit Travis WILDLIFE PROTECTOR-SR SOLUTIONS CONSULTANT Work Phone: Start: 10-16-2023 Angiotensin i-conver ting enzyme Domingo Delgado MD Work Phone: Start: 10-16-2023 Rheumatoid factor quantitative Domingo Delgado MD Work Phone: Start: 10-16-2023 CBC AND ELECTRONIC DIFF Domingo Delgado MD Work Phone: Start: 10-16-2023 Complete blood count with white cell differential, automated Domingo Delgado MD Work Phone: Start: 10-16-2023 LAVENDER TOP TUBE Mike Delgado MD Work Phone: Start: 10-16-2023 LT BLUE TOP TUBE Johnny Delgado MD Work Phone: Start: 10-09-2023 CT angiography of head Start: 05-31-2023 Assay of magnesium Marylin ssa L [place] WILDLIFE PROTECTOR-SR SOLUTIONS CONSULTANT Work Phone: Start: 05-30-2023 Glucose measurement, blood Ji Villa MD, PhD Work Phone: Start: 05-30-2023 CARDIAC RHYTHM Other Ot her Start: 05-30-2023 EXTRA MICRO Bruce crawford MD Work Phone: Start: 05-30-2023 URINALYSIS REFLEX TO CULTURE Bruce Soto MD Work Phone: Start: 05-30-2023 Urnls dip stick/tabl et reagent auto microscopy Bruce Soto MD Work Phone: Start: 05-30-2023 ABORH TYPE RECONFIRMATION Mac Webber MD Work Phone: Start: 05-30-2023 Assay of magnesium Bruce Soto MD Work Phone: Start: 05-30-2023 Antibody screen Ji Villa MD, PhD Work Phone: Start: 05-30-2023 Iadna s aureus ampli fied probe tq Bruce Soto MD Work Phone: Start: 05-30-2023 Blood typing serologic abo Bruce Soto MD Work Phone: Start: 05-30-2023 CBC AND ELECTRONIC DIFF Bruce Soto MD Work Phone: Start: 05-30-2023 Complete blood count with white cell differential, automated Bruce Soto MD Work Phone: Start: 05-30-2023 Prothrombin time Bruce Soto MD Work Phone: Start: 05-29-2023 CT angiography of he ad and neck PA Ganga Moy PA Work Phone: Start: 05-29-2023 MRI of brain with contrast PA Ganga Moy PA Work Phone: Start: 02-05-2023 End: 02-05-2023 Bone density scan Flakita Dick RN Start: 01-23-2023 End: 01-23-2023 Adv care pln/ no alt dcsn mkr docd or refusal Ganga Moy PA-C Work Phone: Start: 01-23-2023 End: 01-23-2023 Depression screening Ganga Moy PA -C Work Phone: Start: 01-23-2023 End: 02-05-2023 Dxa bone density study 1/> sites axial skel Ganga Moy PA-C Work Phone: Comment on above: Please compare with DEXA done at [facility] 01/2021 Start: 01-23-2023 End: 01-23-2023 Falls risk assessment documented Ganga Moy PA-C Work Phone: Start: 01-23-2023 End: 01-23-2023 Pt falls assess docd w/o fall/injury past year Ganga Moy PA-C Work Phone: Start: 01-23-2023 End: 01-23-2023 Scr dep neg, no plan reqd Ganga Westbrook er PA-C Work Phone: Start: 01-15-2023 End: 01-15-2023 Lab findings surveillance Noni Kerrlab ach AMBULANCE ASSISTANT Comment on above: 101 CMP Start: 01-15-2023 End: 01-15-2023 Lipid panel Noni Kerrlabach LP N Comment on above: Normal. TC 173, HDL 66, LDL 77, Trig 150 Start: 01-15-2023 End: 01-15-2023 vit D Noni Ford Corey LP N Comment on above: Normal. 46.40 Start: 12-11-2022 End: 01-06-2023 Screening digital breast tomosynthesis bi Ganga Moy PA-C Work Phone: Start: 01-26-2022 End: 01-26-2022 Cologuard Noni Lowe Comment on above: Normal. neg. Start: 12-30-2021 End: 12-30-2021 Adv care pln/ no alt dcsn mkr docd or refusal Ganga Moy PA-C Work Phone: Start: 12-30-2021 End: 12-30-2021 Depression screening Ganga Moy PA -C Work Phone: Start: 12-30-2021 End: 01-27-2022 Oncology colorectal screening ziyad 10 dna markrs Ganga Moy PA-C Work Phone: Comment on above: Normal. Negative HPV Start: 12-30-2021 End: 12-30-2021 Scr dep neg, no plan reqd Ganga Westbrook er PA-C Work Phone: Start: 10-16-2021 End: 12-17-2021 Screening mammography bi 2-view breast inc cad Ganga Westbrooker PA-C Work Phone: Start: 12-24-2020 End: 12-24-2020 Depression screening Ganga Moy PA -C Work Phone: Start: 12-24-2020 End: 01-17-2021 Dxa bone density study 1/> sites axial skel Ganga Moy PA-C Work Phone: Start: 12-24-2020 End: 12-24-2020 Scr dep neg, no plan reqd Ganga Westbrook er PA-C Work Phone: Start: 12-17-2020 End: 12-17-2020 Screening mammography Noni Nicole LPN Comment on above: Within Normal Limits . Start: 12-17-2020 End: 12-17-2020 Thyrotropin [Units/volume] in Serum or Plasma Noni Nicole LPN Comment on above: 1.72 Start: 12-14-2020 End: 07-12-2021 Screening mammography bi 2-view breast inc cad Ganga Andrade Chinmay TOWNSEND-C Work Phone: Start: 12-01-2019 End: 12-01-2019 Depression screening Ganga Andrade Chinmay TOWNSEND -Yottaa Work Phone: Start: 12-01-2019 End: 12-01-2019 Scr dep neg, no plan reqd Ganga Andrade Pietro aguilar PA-C Work Phone: Start: 11-14-2019 End: 12-28-2019 Screening mammography bi 2-view breast inc cad Ganga Andrade Chinmay TOWNSEND-C Work Phone: Start: 11-18-2018 End: 12-07-2018 Oncology colorectal screening ziyad 10 dna markrs Ganga Andrade Chinmay TOWNSEND-Yottaa Work Phone: Start: 09-15-2018 End: 09-15-2018 Bone density scan Noni Lowe Comment on above: Next due 2020; osteo penia hip Start: 09-15-2018 End: 09-15-2018 Microscopic examination of cervical Papanicolaou smear Noni Nicole LPN Comment on above: Normal. Taylor Peacock MD; next due in 2021 Start: 12-21-2017 End: 12-21-2017 Screening for malignant neoplasm of large intestine Noni Nicole LPN Comment on above: not detected Start: 03-13-2017 End: 03-13-2017 HOUSING PROJECT MANAGER Brea Cartwright PA-C Work Phone: Start: 03-13-2017 End: 03-13-2017 Follow Up Appt 6 months Brea henderson PA-C Work Phone: Start: 09-04-2016 End: 09-04-2016 Follow Up Appt 6 months Liliana Phan Start: 09-04-2016 End: 09-04-2016 DAVINA Agrawal MD Start: 09-04-2016 End: 09-04-2016 Follow Up Appt 6 months Liliana Phan Start: 09-04-2016 End: 09-04-2016 DAVINA Agrawal MD Start: 06-08-2016 End: 06-08-2016 Adela Lowe Comment on above: Ancelmo Start: 04-25-2016 End: 04-25-2016 Nurse, Teaching, Wound [...] poor plasma by Coagulation assay Peace Chan BIOPROCESSING MANUFACTURING TECHNICIAN Work Phone: Start: 04-22-2016 End: 02-25-2017 Left Heart Cath Peace Chan BIOPROCESSING MANUFACTURING TECHNICIAN Work Phone: Start: 04-22-2016 End: 04-25-2016 *BMP Peace Chan NP Work Phone: Start: 04-22-2016 End: 04-25-2016 aPTT Peace Chan NP Work Phone: Start: 04-22-2016 End: 04-25-2016 CBC W Auto Differential panel - Blood Peace Chan BIOPROCESSING MANUFACTURING TECHNICIAN Work Phone: Start: 04-22-2016 End: 04-25-2016 Coagulation factor induced.INR assay in platelet poor plasma Peace Chan BIOPROCESSING MANUFACTURING TECHNICIAN Work Phone: Start: 04-22-2016 End: 04-22-2016 Electrocardiogram, complete Peace gil BIOPROCESSING MANUFACTURING TECHNICIAN Work Phone: Start: 10-25-2015 End: 10-25-2015 Follow Up Appt 1 year Jensen Agrawal MD Start: 10-25-2015 End: 10-25-2015 DAVINA Agrawal MD Start: 10-25-2015 End: 10-25-2015 Follow Up Appt 1 year Jensen Agrawal MD Start: 10-25-2015 End: 10-25-2015 DAVINA Agrawal MD Start: 06-08-2015 End: 06-08-2015 Cardiac catherization Noni Nicole LPN Comment on above: Normal. Start: 06-08-2015 End: 06-08-2015 heart cath Noni Lowe Comment on above: [place] Start: 10-20-2014 End: 10-20-2014 DILLON Agrawal MD [...] PA-C Work Phone: Start: 07-10-2014 End: 07-10-2014 HOUSING PROJECT MANAGER Brea Cartwright PA-C Work Phone: Start: 07-10-2014 [...] PA-C Work Phone: Start: 07-10-2014 End: 07-10-2014 HOUSING PROJECT MANAGER Brea Cartwright PA-C Work Phone: Start: 07-10-2014 [...] PA-C Work Phone: Start: 01-20-2014 End: 01-20-2014 HOUSING PROJECT MANAGER Brea Cartwright PA-C Work Phone: Start: 01-20-2014 [...] PA-C Work Phone: Start: 01-20-2014 End: 01-20-2014 HOUSING PROJECT MANAGER Brea Cartwright PA-C Work Phone: Start: 01-20-2014 [...] PA-C Work Phone: Start: 03-29-2013 End: 03-29-2013 HOUSING PROJECT MANAGER Brea Cartwright PA-C Work Phone: Start: 03-29-2013 [...] PA-C Work Phone: Start: 03-29-2013 End: 03-29-2013 HOUSING PROJECT MANAGER Brea Cartwright PA-C Work Phone: Start: 03-29-2013 End: 03-29-2013 Electrocardiogram, complete Brea Tang PA-C Work Phone: Start: 03-29-2013 End: 03-29-2013 Follow Up Appt 6 months Brea hendersno PA-C Work Phone: Start: 03-29-2013 End: 04-15-2013 [...] End: 03-25-2012 Follow Up Appt 6 months Francicso Javier Westbrook MD Start: 03-25-2012 End: 05-13-2012 [...] End: 08-01-2011 Magnesium Francisco Javier Westbrook MD Start: 02-06-2011 End: 03-17-2011 Ct thorax w/o contrast material Kiko Galarza MD Work Phone: Plan of Treatment Date Care Activity Detail Author Start: 01-23-2033 Tetanus vaccination TETANUS [facility] Start: 11-09-2031 RSV VACCINE (1 - 1-d ose 75+ series) RSV VACCINE (1 - 1-dose 75+ series) [facility] Start: 12-26-2024 End: 07-29-2025 CT Head WO contrast CT HEAD WITHOUT CONTRAST Imaging Routine Syncope, unspecified syncope type Expected: 12/26/2024, Expires: 07/29/2025 [facility] Comment on above: Expected: 12/26/2024 , Expires: 07/29/2025 Start: 10-27-2024 Patient encounter procedure Medical; EXTENDED RTN - 4 wk f/u [facility]. Start: 27-Oct-2024 11:00-04:00 DARLENE Moy Appointment Request [facility] Start: 08-19-2024 Culture bacterial quanttative colony count urine URINE BOO CULTURE-ZIYAD COL COUNT Start: 19-Aug-2024 14:48-04:00 Request [facility]; [facility] Start: 08-19-2024 Urnls dip stick/tabl et reagent auto microscopy URINALYSIS, AUTOMATED W/ MICRO ([id number]) Start: 19-Aug-2024 14:48-04:00 Request [facility]; [facility] Start: 08-19-2024 Patient encounter procedure Medical; EXTENDED RTN - F/U NEED PER [facility]. Start: 19-Aug-2024 14:00-04:00 DARLENE Moy Appointment Request [facility]. Start: 08-19-2024 Culture bacterial quanttative colony count urine Urine Culture ([id number]) Start: 19-Aug-2024 08:43-04:00 Request [facility]; [facility] Start: 08-19-2024 Urnls dip stick/tabl et rgnt auto w/o microscopy Urinalysis, Automated w/o micro (in house)* ([id number]) Start: 19-Aug-2024 08:43-04:00 [facility]; [facility] Start: 07-21-2024 End: 07-21-2025 MR Brain WO contrast MRI BRAIN WITHOUT CONTRAST Imaging Routine Confusion Memory loss Personality change Expected: 07/21/2024, Expires: 07/21/2025 [facility] Comment on above: Expected: 07/21/2024 , Expires: 07/21/2025 Start: 06-30-2024 Assay of thyroid stimulating hormone tsh TSH (THYROID STIMULATING HORMONE) ([id number]) Start: 30-Jun-2024 09:53-05:00 [facility]; [facility] Start: 06-30-2024 25 hydroxy includes fractions if performed Vitamin D, 25-Hydroxy, LC/MS/MS ([id number]) Start: 30-Jun-2024 09:45-05:00 Request [facility]; [facility] Start: 06-30-2024 Lipid panel LIPID PANEL ([id number]) Start: 30-Jun-2024 09:45-05:00 [facility]; [facility] Start: 06-30-2024 Comprehensive metabo lic panel CMP w/ GFR* ([id number]) Start: 30-Jun-2024 09:45-05:00 Request [facility]; [facility] Start: 06-30-2024 Blood count complete auto&auto difrntl wbc CBC, PLATELETS & AUT DIFF (F) ([id number]) Start: 30-Jun-2024 09:45-05:00 Request [facility]; [facility] Start: 06-30-2024 Patient encounter procedure Medical; PHYSICAL - awv/will be fasting [facility]. Start: 30-Jun-2024 08:50-05:00 DARLENE Moy Appointment Request [facility] Start: 05-09-2024 Screening digital br east tomosynthesis bi Mammogram 3D (tomosynthesis), bilateral ([id number]) Start: 09-May-2024 Intent [facility] Start: 02-07-2024 COVID-19 VACCINE () COVID-19 VACCINE () [facility] Start: 02-07-2024 COVID-19 VACCINE () COVID-19 VACCINE () [facility] Start: 02-07-2024 Influenza vaccination O [facility] Start: 11-30-2023 Patient encounter procedure Medical; Hospital F/U - [facility] 11/20 cerebral aneurysm, non ruptured [facility]. Start: 30-Nov-2023 10:30-04:00 DARLENE Moy Appointment Request [facility]. 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 PERMANENT Cerebral aneurysm, nonruptured 11/20/2023 7:15 AM EDT [facility] Start: 11-20-2023 End: 11-20-2023 Tcat plmt iv stent icra w/balo angiop if pfrmd PLACEMENT STENT INTRAVASCULAR INTRACRANIAL PERCUTANEOUS Cerebral aneurysm, nonruptured 11/20/2023 7:15 AM EDT [facility] Start: 11-04-2023 End: 11-04-2023 Admission to [facility] day [facility] center [facility] Comment on above: PLACEMENT CATH SELEC TIVE INTERNAL CAROTID ARTERY W/ ANGIO IPSILAT INTRACRANIAL CAROTID W/ RAD S&I Start: 11-04-2023 End: 11-04-2023 Slctv cath intrnl carotid art angio intrcrnl art [facility] Start: 11-04-2023 Subsequent hospital visit by physician [facility] Comment on above: Brain aneurysm Start: 10-09-2023 [facility] Start: 05-29-2023 End: 05-29-2023 [facility] Start: 05-28-2023 Procedure [facility] Start: 05-28-[address] [facility] Start: 05-28-2023 Vitamin B6 measurement [facility] Start: 02-06-2023 COVID-19 VACCINE () COVID-19 VACCINE () [facility] Start: 02-06-2023 Influenza vaccination INFLUENZA VACC INE (#1) [facility] Start: 01-19-2023 Screening for malign ant neoplasm of colon COLORECTAL CANCER SCREENING DISCUSSION [facility] Start: 12-30-2021 Provider Instruction s for Treatment [facility] HM Issues, 50-64 female Indication: Encounter for routine pelvic examination, 50-64 (Renamed from Encounter for routine gynecological examination) Start: 30-Dec-2021 Instruction Type: Provider Instructions for Treatment [facility] Start: 12-30-2021 End: 01-01-2022 Polysom 6/>yrs sleep 4/> addl pamela attnd Sleep Study Date: 30-Dec-2021 [facility] Start: 2021 Pneumococcal vaccination PNEUM OCOCCAL VACCINE SERIES (1 - PCV) [facility] Start: 12-24-2020 Provider Instruction s for Treatment [facility] HM Issues, 50-64 female Indication: Encounter for routine pelvic examination, 50-64 (Renamed from Encounter for routine gynecological examination) Start: 24-Dec-2020 Instruction Type: Provider Instructions for Treatment [facility] Start: 12-01-2019 Provider Instruction s for Treatment [facility] HM Issues, 50-64 female Indication: Annual physical exam Start: 01-Dec-2019 Instruction Type: Provider Instructions for Treatment [facility] Start: 02-06-2019 Influenza vaccination Flu vaccine (# 1) [facility] Work Phone: Start: 09-17-2017 End: 09-17-2017 Appointment Appointment [facility] Work Phone: Start: 03-13-2017 End: 03-13-2017 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 [facility] Work Phone: Start: 03-13-2017 End: 03-13-2017 Follow Up Appt 6 months Follow Up Appt 6 months [facility] Work Phone: Start: 03-13-2017 End: 03-13-2017 Appointment Appointment [facility] Work Phone: Start: 2016 RSV VACCINE (1 - 1-d ose 60+ series) RSV VACCINE (1 - 1-dose 60+ series) [facility] Start: 09-04-2016 End: 09-04-2016 Follow Up Appt 6 months Follow Up Appt 6 months [facility] Work Phone: Start: 09-04-2016 End: 09-04-2016 MMM MMM [facility] Work Phone: Start: 09-04-2016 End: 09-04-2016 Follow Up Appt 6 months Follow Up Appt 6 months [facility] Work Phone: Start: 09-04-2016 End: 09-04-2016 MMM MMM [facility] Work Phone: Start: 04-22-2016 End: 04-25-2016 *BMP *BMP [facility] [employer] Work Phone: Start: 04-22-2016 End: 04-25-2016 aPTT Coag time (Bld) *PTT-Partial Thromboplastin Time [facility] Work Phone: Start: 04-22-2016 End: 04-25-2016 CBC W Auto Differential panel - Blood *CBC without Diff [facility] [employer] Work Phone: Start: 04-22-2016 End: 02-25-2017 Chest x-ray X-Ray, Chest, PA & Lateral [facility] [employer] Work Phone: Start: 04-22-2016 End: 04-22-2016 Ecg routine ecg w/least 12 lds w/i&r EKG (In office) [facility] Work Phone: Start: 04-22-2016 End: 04-25-2016 INR Coag RelTime (PPP) *PT/INR [facility] Work Phone: Start: 04-22-2016 End: 02-25-2017 Left Heart Cath Left Heart Cath [facility] [employer] Work Phone: Start: 04-22-2016 End: 04-25-2016 *BMP *BMP [facility] [employer] Work Phone: Start: 04-22-2016 End: 04-25-2016 aPTT *PTT-Partial Thromboplastin Time [facility] Work Phone: Start: 04-22-2016 End: 04-25-2016 CBC W Auto Differential panel - Blood *CBC without Diff [facility] Work Phone: Start: 04-22-2016 End: 04-22-2016 Chest x-ray X-Ray, Chest, PA & Lateral [facility] Work Phone: Start: 04-22-2016 End: 04-25-2016 Coagulation factor induced.INR assay in platelet poor plasma *PT/INR [facility] Work Phone: Start: 04-22-2016 End: 04-22-2016 Electrocardiogram, complete EKG (In office) [facility] Work Phone: Start: 04-22-2016 End: 04-22-2016 Left Heart Cath Left Heart Cath [facility] Work Phone: Start: 10-25-2015 End: 10-25-2015 Follow Up Appt 1 year Follow Up Appt 1 year [facility] Work Phone: Start: 10-25-2015 End: 10-25-2015 MMM MMM [facility] Work Phone: Start: 10-25-2015 End: 10-25-2015 Follow Up Appt 1 year Follow Up Appt 1 year [facility] Work Phone: Start: 10-25-2015 End: 10-25-2015 MMM MMM [facility] Work Phone: Start: 10-20-2014 End: 10-20-2014 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 [facility] Work Phone: Start: 10-20-2014 End: 10-20-2014 Follow Up Appt 1 year Follow Up Appt 1 year [facility] Work Phone: Start: 10-20-2014 End: 10-20-2014 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 [facility] Work Phone: Start: 10-20-2014 End: 10-20-2014 Follow Up Appt 1 year Follow Up Appt 1 year [facility] Work Phone: Start: 07-10-2014 End: 07-11-2014 *BMP *BMP [facility] Work Phone: Start: 07-10-2014 End: 07-11-2014 *CBC with Differential *CBC with Differential [facility] Work Phone: Start: 07-10-2014 End: 07-10-2014 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 [facility] Work Phone: Start: 07-10-2014 End: 07-10-2014 Follow Up Appt 3 months Follow Up Appt 3 months [facility] Work Phone: Start: 07-10-2014 End: 07-10-2014 Follow Up BP Check Follow Up BP Check [facility] Work Phone: Start: 07-10-2014 End: 07-11-2014 Magnesium mass conc *Magnesium [facility] Work Phone: Start: 07-10-2014 End: 07-11-2014 Thyrotropin Qn *TSH [facility] Work Phone: Start: 07-10-2014 End: 07-11-2014 *BMP *BMP [facility] Work Phone: Start: 07-10-2014 End: 07-11-2014 *CBC with Differential *CBC with Differential [facility] Work Phone: Start: 07-10-2014 End: 07-10-2014 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 [facility] Work Phone: Start: 07-10-2014 [...] Group Work Phone: Start: 01-20-2014 End: 01-20-2014 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 [facility] Work Phone: Start: 01-20-2014 End: 01-20-2014 Ecg routine ecg w/least 12 lds w/i&r EKG (In office) [facility] Work Phone: Start: 01-20-2014 End: 01-20-2014 Follow Up Appt 6 months Follow Up Appt 6 months [facility] Work Phone: Start: 01-20-2014 End: 07-10-2014 Thyrotropin Qn *TSH [facility] Work Phone: Start: 01-20-2014 End: 07-10-2014 *BMP *BMP [facility] Work Phone: Start: 01-20-2014 End: 07-10-2014 CBC W Auto Differential panel - Blood *CBC without Diff [facility] Work Phone: Start: 01-20-2014 End: 01-20-2014 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 [facility] Work Phone: Start: 01-20-2014 End: 01-20-2014 Electrocardiogram, complete EKG (In office) [facility] Work Phone: Start: 01-20-2014 End: 01-20-2014 Follow Up Appt 6 months Follow Up Appt 6 months [facility] Work Phone: Start: 01-20-2014 End: 07-10-2014 Thyroid stimulating hormone (TSH) *TSH [facility] Work Phone: Start: 10-21-2013 End: 10-21-2013 Follow Up Appt 3 months Follow Up Appt 3 months [facility] Work Phone: Start: 10-21-2013 End: 10-21-2013 MM MMM [facility] Work Phone: Start: 10-21-2013 End: 10-21-2013 Follow Up Appt 3 months Follow Up Appt 3 months [facility] Work Phone: Start: 10-21-2013 End: 10-21-2013 MM MM [facility] Work Phone: Start: 10-06-2013 End: 07-11-2014 *Hepatic Function Panel *Hepatic Function Panel [facility] Work Phone: Start: 10-06-2013 End: 07-11-2014 Lipid 1996 panel *Lipid Profile CC PCP [facility] Work Phone: Start: 10-06-2013 End: 07-11-2014 *Hepatic Function Panel *Hepatic Function Panel [facility] Work Phone: Start: 10-06-2013 End: 07-11-2014 Lipid panel [AGGREGATE] *Lipid Profile CC PCP [facility] Work Phone: Start: 03-29-2013 End: 04-15-2013 *BMP *BMP [facility] Work Phone: Start: 03-29-2013 End: 04-15-2013 *Hepatic Function Panel *Hepatic Function Panel [facility] Work Phone: Start: 03-29-2013 End: 03-29-2013 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 [facility] Work Phone: Start: 03-29-2013 End: 03-29-2013 Ecg routine ecg w/least 12 lds w/i&r EKG (In office) [facility] Work Phone: Start: 03-29-2013 End: 03-29-2013 Follow Up Appt 6 months Follow Up Appt 6 months [facility] Work Phone: Start: 03-29-2013 End: 04-15-2013 Lipid 1996 panel *Lipid Profile CC PCP [facility] [employer] Work Phone: Start: 03-29-2013 End: 04-15-2013 *BMP *BMP [facility] [employer] Work Phone: Start: 03-29-2013 End: 04-15-2013 *Hepatic Function Panel *Hepatic Function Panel [employer] Work Phone: Start: 03-29-2013 End: 03-29-2013 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 [facility] [employer] Work Phone: Start: 03-29-2013 End: 03-29-2013 Electrocardiogram, complete EKG (In office) [facility] [employer] Work Phone: Start: 03-29-2013 End: 03-29-2013 Follow Up Appt 6 months Follow Up Appt 6 months [employer] Work Phone: Start: 03-29-2013 End: 04-15-2013 Lipid panel [AGGREGATE] *Lipid Profile CC PCP [facility] [employer] Work Phone: Start: 10-07-2012 Zoster vaccine hzv l ysabel for subcutaneous use ZOSTER (SHINGLES) VACCINE (2 of 3) [facility] Start: 09-30-2012 End: 09-30-2012 Follow Up Appt 6 months Follow Up Appt 6 months [facility] [employer] Work Phone: Start: 09-30-2012 End: 09-30-2012 Follow Up Appt 6 months Follow Up Appt 6 months [facility] [employer] Work Phone: Start: 08-11-2012 End: 03-29-2013 *Hepatic Function Panel *Hepatic Function Panel [facility] [employer] Work Phone: Start: 08-11-2012 End: 03-29-2013 Lipid 1996 panel *Lipid Profile [facility] [employer] Work Phone: Start: 08-11-2012 End: 03-29-2013 *Hepatic Function Panel *Hepatic Function Panel [facility] [employer] Work Phone: Start: 08-11-2012 End: 03-29-2013 Lipid panel [AGGREGATE] *Lipid Profile [facility] Work Phone: Start: 03-25-2012 End: 05-13-2012 *BMP *BMP [email or web address] Work Phone: Start: 03-25-2012 End: 05-13-2012 *Hepatic Function Panel *Hepatic Function Panel [employer] Work Phone: Start: 03-25-2012 End: 03-25-2012 Ecg routine ecg w/least 12 lds w/i&r EKG (In office) [email or web address] Work Phone: Start: 03-25-2012 End: 03-25-2012 Follow Up Appt 6 months Follow Up Appt 6 months [employer] Work Phone: Start: 03-25-2012 End: 05-13-2012 Lipid 1996 panel *Lipid Profile [employer] Phone: Start: 03-25-2012 End: 05-13-2012 Magnesium mass conc *Magnesium [employer] [facility] [employer] Work Phone: Start: 03-25-2012 End: 05-13-2012 *BMP *BMP [email or web address] Work Phone: Start: 03-25-2012 End: 05-13-2012 *Hepatic Function Panel *Hepatic Function Panel [employer] Work Phone: Start: 03-25-2012 End: 03-25-2012 Electrocardiogram, complete EKG (In office) [email or web address] Work Phone: Start: 03-25-2012 End: 03-25-2012 Follow Up Appt 6 months Follow Up Appt 6 months [employer] Work Phone: Start: 03-25-2012 End: 05-13-2012 Lipid panel [AGGREGATE] *Lipid Profile [email or web address] Work Phone: Start: 03-25-2012 End: 05-13-2012 Magnesium *Magnesium [email or web address] Work Phone: Start: 12-11-2011 End: 12-11-2011 Follow Up Appt 3 months Follow Up Appt 3 months [employer] Work Phone: Start: 12-11-2011 End: 12-11-2011 Follow Up Appt 3 months Follow Up Appt 3 months [employer] Work Phone: Start: 10-30-2011 End: 11-24-2011 *BMP *BMP [email or web address] Work Phone: Start: 10-30-2011 End: 11-24-2011 aPTT Coag time (Bld) *PTT-Partial Thromboplastin Time [email or web address] Work Phone: Start: 10-30-2011 End: 10-30-2011 Complete sleep workup (PSG,CPAP as indicated) & Follow up Complete sleep workup (PSG,CPAP as indicated) & Follow up [email or web address] Work Phone: Start: 10-30-2011 End: 10-30-2011 Echocardiography Echocardiogram (complete) [email or web address] Work Phone: Start: 10-30-2011 End: 10-30-2011 Follow Up Appt 6 weeks Follow Up Appt 6 weeks [email or web address] Work Phone: Start: 10-30-2011 End: 11-24-2011 INR Coag RelTime (PPP) *PT/INR [email or web address] Work Phone: Start: 10-30-2011 End: 11-24-2011 Magnesium mass conc *Magnesium [email or web address] Work Phone: Start: 10-30-2011 End: 11-24-2011 T4 mass conc *T4 (Total) [email or web address] Work Phone: Start: 10-30-2011 End: 11-24-2011 Thyrotropin Qn *TSH [email or web address] Work Phone: Start: 10-30-2011 End: 11-24-2011 *BMP *BMP [email or web address] Work Phone: Start: 10-30-2011 End: 11-24-2011 aPTT *PTT-Partial Thromboplastin Time [email or web address] Work Phone: Start: 10-30-2011 End: 11-24-2011 Coagulation factor induced.INR assay in platelet poor plasma *PT/INR [employer] [facility] [employer] Work Phone: Start: 10-30-2011 End: 10-30-2011 Complete sleep workup (PSG,CPAP as indicated) & Follow up Complete sleep workup (PSG,CPAP as indicated) & Follow up [employer] [facility] [employer] Work Phone: Start: 10-30-2011 End: 10-30-2011 Echocardiography Echocardiogram (complete) [email or web address] Work Phone: Start: 10-30-2011 End: 10-30-2011 Follow Up Appt 6 weeks Follow Up Appt 6 weeks [employer] Work Phone: Start: 10-30-2011 End: 11-24-2011 Magnesium *Magnesium [employer] Work Phone: Start: 10-30-2011 End: 11-24-2011 Thyroid stimulating hormone (TSH) *TSH [email or web address] Work Phone: Start: 10-30-2011 End: 11-24-2011 Thyroxine (T4) *T4 (Total) [employer] [facility] [employer] Work Phone: Start: 07-14-2011 End: 08-01-2011 *BMP *BMP [employer] [facility] [employer] Work Phone: Start: 07-14-2011 End: 08-01-2011 *Hepatic Function Panel *Hepatic Function Panel [employer] Work Phone: Start: 07-14-2011 End: 07-14-2011 Follow Up Appt 6 months Follow Up Appt 6 months [employer] Work Phone: Start: 07-14-2011 End: 08-01-2011 Lipid 1996 panel *Lipid Profile [employer] [facility] [employer] Work Phone: Start: 07-14-2011 End: 08-01-2011 Magnesium mass conc *Magnesium [employer] [facility] [employer] Work Phone: Start: 07-14-2011 End: 08-01-2011 *BMP *BMP [employer] [facility] [employer] Work Phone: Start: 07-14-2011 End: 08-01-2011 *Hepatic Function Panel *Hepatic Function Panel [employer] Work Phone: Start: 07-14-2011 End: 07-14-2011 Follow Up Appt 6 months Follow Up Appt 6 months [employer] Work Phone: Start: 07-14-2011 End: 08-01-2011 Lipid panel [AGGREGATE] *Lipid Profile [facility] Work Phone: Start: 07-14-2011 End: 08-01-2011 Magnesium *Magnesium [facility] Work Phone: Start: 03-21-2011 Provider Instruction s for Treatment Diet/Exercise Indication: Obesity (Renamed from Obese) Start: 21-Mar-2011 Instruction Type: Provider Instructions for Treatment [facility] Start: 09-05-2010 Provider Instruction s for Treatment rah Generic Inst Indication: Abnormal chest CT Start: 05-Sep-2010 Instruction Type: Provider Instructions for [facility] [employer] Start: 2006 Breast cancer screen Breast cancer s creen [facility] Work Phone: Start: 2006 Colon cancer screen colonoscopy Colon cancer screen colonoscopy [facility] Work Phone: Start: 2006 Shingles Vaccine (1 of 2) Larose gles Vaccine (1 of 2) [facility] Work Phone: Start: 2006 Zoster vaccine hzv l ysabel for subcutaneous use ZOSTER (SHINGLES) VACCINE (1 of 2) [facility] Start: 2001 Screening for malign ant neoplasm of colon COLORECTAL CANCER SCREENING DISCUSSION [facility] Start: 1996 Lipid panel LIPID SCREENING [facility] Start: 1996 Lipid screen Lipid screen [facility] Work Phone: Start: 1996 Screening for malign ant neoplasm of breast MAMMOGRAM SCREENING DISCUSSION [facility] Start: 1977 Cervical cancer screen Cervical canc er screen [facility] Work Phone: Start: 1977 Screening for malign ant neoplasm of cervix CERVICAL CANCER SCREENING DISCUSSION [facility] Start: 11-09-1975 Third diphtheria, te tanus and acellular pertussis (DTaP) vaccination TDAP (ADULT) [facility] Start: 11-09-1971 HIV screen HIV screen [facility] Work Phone: Start: 11-09-1967 DTaP/Tdap/Td vaccine (1 - Tdap) DTaP/Tdap/Td vaccine (1 - Tdap) [facility] Work Phone: Start: 05-10-1957 COVID-19 VACCINE (#1) COVID-19 VACCI NE (#1) [facility] Start: 1956 Hepatitis C screen Hepatitis C scree n [facility] Work Phone: Start: 1956 Hepatitis C screening HEPATITI S C VIRUS SCREENING [facility] Start: 1956 Screening for osteoporosis DEXA SCAN DISCUSSION [facility] Start: 1956 Tetanus vaccination TETANUS [facility] End: 10-16-2023 JOSH MULTIPLEX SCRN WITH REFLEX [facility] Comment on above: One Time for 1 Occur rences starting 10/16/2023 until 10/16/2023 End: 10-16-2023 ANTI NEUTROPHIL CYTOPLASMIC ANTIBODY [facility] Comment on above: One Time for 1 Occur rences starting 10/16/2023 until 10/16/2023 End: 01-28-2024 CTA Head vessels WO and W contrast IV [facility] Work Phone: Comment on above: 1 Occurrences starti ng 01/28/2024 until 01/28/2024 End: 03-17-2024 CTA Head vessels WO and W contrast IV [facility] Comment on above: 1 Occurrences starti ng 03/17/2024 until 03/17/2024 End: 07-21-2024 CTA Head vessels WO and W contrast IV [facility] Comment on above: 1 Occurrences starti ng 07/21/2024 until 07/21/2024 End: 11-20-2023 EMBOLIZATION INTRACRANIAL OR SPINAL CORD-IP ONLY EMBOLIZATION INTRACRANIAL OR SPINAL CORD-IP ONLY Imaging Routine Cerebral aneurysm, nonruptured One Time for 1 Occurrences starting 11/20/2023 until 11/20/2023 [facility] Comment on above: One Time for 1 Occur rences starting 11/20/2023 until 11/20/2023 End: 05-30-2023 FLUORO IMAGING FOR NEURO ENDOVASCULAR [facility] Comment on above: One Time for 1 Occur rences starting 05/30/2023 until 05/30/2023 End: 10-29-2023 FLUORO IMAGING FOR NEURO ENDOVASCULAR [facility] Comment on above: One Time for 1 Occur rences starting 10/29/2023 until 10/29/2023 End: 11-20-2023 FLUORO IMAGING FOR NEURO ENDOVASCULAR [facility] Comment on above: One Time for 1 Occur rences starting 11/20/2023 until 11/20/2023 End: 10-16-2023 GOLD TOP TUBE [facility] Comment on above: Once for 1 Occurrenc es starting 10/16/2023 until 10/16/2023, 1 completed End: 10-16-2023 LYME AB [facility] Comment on above: One Time for 1 Occur rences starting 10/16/2023 until 10/16/2023 End: 10-16-2023 LYSOZYME (MURAMIDASE) [facility] Comment on above: One Time for 1 Occur rences starting 10/16/2023 until 10/16/2023 End: 10-16-2023 M TUBERCULOSIS BY QUANTIFERON, BLD [facility] Comment on above: One Time for 1 Occur rences starting 10/16/2023 until 10/16/2023 End: 10-16-2023 MINT GREEN TOP TUBE [facility] Comment on above: Once for 1 Occurrenc es starting 10/16/2023 until 10/16/2023, 1 completed End: 10-16-2023 MYELIN OLIGODENDROCYTE GLYCOPROTEIN [id number],FACS [facility] Work Phone: Comment on above: One Time for 1 Occur rences starting 10/16/2023 until 10/16/2023 End: 10-16-2023 NMO EVALUATION WITH REFLEX [facility] Comment on above: One Time for 1 Occur rences starting 10/16/2023 until 10/16/2023 Patient Education Understanding Vision Problems [facility] Work Phone: Patient referral [facility] Work Phone: End: 10-29-2023 PLACEMENT CATH SELECTIVE COMMON CAROTID/INNOM ART W/ ANGIO IPSILAT EXTRACRANIAL CAROTID W/ RAD S&I PLACEMENT CATH SELECTIVE COMMON CAROTID/INNOM ART W/ ANGIO IPSILAT EXTRACRANIAL CAROTID W/ RAD S&I Imaging Routine Cerebral aneurysm, nonruptured One Time for 1 Occurrences starting 10/29/2023 until 10/29/2023 [facility] Comment on above: One Time for 1 Occur rences starting 10/29/2023 until 10/29/2023 End: 11-20-2023 PLACEMENT CATH SELECTIVE INTERNAL CAROTID ARTERY W/ ANGIO IPSILAT INTRACRANIAL CAROTID W/ RAD S&I PLACEMENT CATH SELECTIVE INTERNAL CAROTID ARTERY W/ ANGIO IPSILAT INTRACRANIAL CAROTID W/ RAD S&I Imaging Routine Cerebral aneurysm, nonruptured One Time for 1 Occurrences starting 11/20/2023 until 11/20/2023 [facility] Comment on above: One Time for 1 Occur rences starting 11/20/2023 until 11/20/2023 End: 10-16-2023 RAINBOW DRAW [facility] Comment on above: One Time for 1 Occur rences starting 10/16/2023 until 10/16/2023 End: 07-26-2024 Standard ECG ECG ECG Routine One Time for 1 Occurrences starting 07/26/2024 until 07/26/2024 [facility] Comment on above: One Time for 1 Occur rences starting 07/26/2024 until 07/26/2024 COVID-Pfizer (30 MCG/0.3 ML) Scheduled for Administration [employer] Immunizations Immunization Date Immunization Notes Care Provider Nathalie caballero 06-30-2024 influenza virus vacc ine, unspecified formulation Ganga Moy PA-C Work Phone: [employer] 06-30-2024 influenza, seasonal, injectable, preservative free Ganga Moy PA-C Work Phone: [facility]; [employer] Comment on above: Site: Left DeltoidVI S Given: * Influenza (Flu) Vaccine (Inactivated or Recombinant) (01/11/21) 01-23-2023 TD(adult) unspecifie d formulation Ganga Moy PA-C Work Phone: [employer]; [employer] 01-23-2023 pneumococcal conjuga te vaccine, 13 valent Ganga Moy PA-C Work Phone: [facility]; [employer] Comment on above: Site: Left DeltoidVI S Given: * Pneumococcal Conjugate Vaccine (10/17/22) 01-23-2023 tetanus and diphther ia toxoids, adsorbed, preservative free, for adult use (2 Lf of tetanus toxoid and 2 Lf of diphtheria toxoid) GangaMo-DVer PA-C Work Phone: [employer]; [employer]. Comment on above: Site: Left DeltoidVI S Given: * Tetanus Diptheria (TD) (01/11/21) 03-22-2022 influenza virus vacc ine, unspecified formulation Placido Mata MD Work Phone: [facility] 12-30-2021 pneumococcal polysaccharide vaccine, 23 valent Ganga Moy PA-C Work Phone: [facility]; [employer] Comment on above: Site: Left DeltoidVI S Given: * Pneumococcal Polysaccharide (PPSV23) (09/29/14) 10-16-2020 COVID-Pfizer (30 MCG /0.3 ML) [employer] PA-C Work Phone: [employer]; [employer] 06-08-2018 influenza, injectabl e, quadrivalent, contains preservative Ganga Moy PA-C Work Phone: [employer]; [employer] 07-09-2016 influenza, seasonal, injectable Ganga Moy PA-C Work Phone: [facility]; [employer] 07-05-2015 influenza, seasonal, injectable Ganga Moy PA-C Work Phone: [employer]; [employer] Comment on above: Site: Deltoid (Left) VIS Given: * Inactivated Influenza (01/12/2015) 08-12-2012 tetanus toxoid, redu lj diphtheria toxoid, and acellular pertussis vaccine, adsorbed Ganga Moy PA-C Work Phone: [employer]; [employer] Comment on above: Site: Deltoid (Left) VIS Given: * Tetanus/Diphtheria/(Pertussis) (Td/Tdap) (04/25/08) * Tetanus/Diptheria/Pertussis (Tdap/Td) 07/01/11 08-12-2012 zoster vaccine, live Ganga Moy PA-C Work Phone: [employer]; [employer] Comment on above: Site: Deltoid Area ( Left)VIS Given: * Shingles (Herpes Zoster) (03/13/09) 08-12-2012 zoster vaccine, unspecified formulation Placido Mata MD Work Phone: [facility] 03-21-2011 influenza, seasonal, injectable Ganga Moy PA-C Work Phone: [employer]; [employer] Comment on above: Site: Deltoid (Left) VIS Given: * Inactivated Influenza Vaccine (01/16/09) * Inactivated Influenza Vaccine (12/31/10) * Inactivated Influenza Vaccine (12/31/10) * Inactivated Influenza Vaccine (12/31/10) * Inactivated Influenza Vaccine (12/31/10) * Inactivated Influenza Vaccine (12/31/10) * Inactivated Influenza Vaccine (12/31/10) * VIS Given (Unspecified) * VIS Given (Unspecified) 03-21-2011 IMMUNIZATION ADMIN ([id number]) Ganga Moy PA-C Work Phone: [facility], [employer] [facility], [facility]. Payers Date Payer Category Payer Medicare MEDICARE PART A [id number] 2023 Self-pay [id number] 2023 Managed Care (unspecified) [employer] [id number] 2023 Private Health Insurance [id number] 2021 Medicare [id number] 2017 Private Health Insurance [id number] 2016 Private Health Insurance LEE JAMES xxxxxxxxxx 2016-Present [phone] [address] [place] [id number] xxxxxxxxxx [id number] 2011 Private Health Insurance [id number] 1956 Unknown [id number] 2.840.1.141514.3.579.2 .732 1956 Unknown [id number] 2.16840.1.260404.3.579.2 .594 1956 Unknown [id number] 2.16840.1.280727.3.579.2 .594 1956 Unknown [id number] 2.16840.1.942754.3.579.2 .594 1956 Unknown [id number] 2.0.1.076387.3.579.2 .594 1956 Unknown [id number] 2.840.1.581139.3.579.2 .594 1956 Unknown [id number] 2.840.1.320668.3.579.2 .594 1956 Unknown [id number] 2.840.1.083699.3.579.2 .594 1956 Unknown [id number] 2.0.1.130260.3.579.2 .594 1956 Unknown [id number] 2.840.1.125726.3.579.2 .594 1956 Unknown [id number] 2.16840.1.660621.3.579.2 .594 1956 Unknown [id number] 2.16840.1.943356.3.579.2 .594 1956 Unknown [id number] 2.16840.1.682576.3.579.2 .594 1956 Unknown [id number] 2.16.840.1.131195.3.579.2 .594 1956 Unknown [id number] 2.840.1.983811.3.579.2 .594 1956 Unknown [id number] 2.16840.1.385140.3.579.2 .594 1956 Unknown [id number] 2.840.1.049128.3.579.2 .594 1956 Unknown [id number] 2.840.1.609695.3.579.2 .594 1956 Unknown [id number] 2.840.1.260559.3.579.2 .594 1956 Unknown [id number] 2.840.1.407290.3.579.2 .594 1956 Unknown [id number] 2.840.1.257549.3.579.2 .651 1956 Unknown [id number] 2.840.1.731974.3.579.2 .651 1956 Unknown [id number] 2.840.1.544868.3.579.2 .651 1956 Unknown [id number] 2.840.1.930739.3.579.2 .651 Unknown Unknown [id number] 2.840.1.324108.3.579.2 .462 Unknown [id number] 2.840.1.383586.3.579.2 .462 Unknown [id number] 2.840.1.532730.3.579.2 .462 Unknown [id number] 2.840.1.686953.3.579.2 .462 Unknown [id number] 2.840.1.360766.3.579.2 .462 Social History Date Type Detail Facility Start: 07-17-2016 End: 07-02-2023 Tobacco smoking status NHIS Former smoker [facility] Work Phone: End: 07-17-1984 History of tobacco use Current smoker [facility] Work Phone: Start: 1955 Sex Assigned At Not on file [facility] Work Phone: Start: 05-30-2023 End: 07-27-2024 Caffeine Use Caffeine Use [employer]; [employer] Current Work/Study Status: Current Work/Study Status: ; Retired. [employer] Tobacco Use: Tobacco Use: ; F ormer smoker. [employer] Start: 1955 Female [facility]ired [facility]; [employer] Work Phone: Start: 05-29-2023 End: 10-09-2023 Tobacco smoking status [facility] Unknown if ever smoked [facility] History of tobacco use Cigarette Smoker [facility] Start: 05-30-2023 End: 07-27-2024 [facility] Utilities [facility] Has the [employer], or [employer] threatened to shut off services in your home in past 12Mo No [facility] How hard is it for y ou to pay for the very basics like food, housing, medical care, and heating Not hard at all [facility] (I/We) worried percy er (my/our) food would run out before (I/we) got money to buy more. Never true [facility] Start: 07-02-2023 Tobacco use and exposure Smokeless tobacco non-user [facility] Start: 10-16-2023 End: 07-28-2024 Alcoholic beverage intake Ex-drinker (finding) [facility] Start: 10-16-2023 Gender identity Identifies as female gender (finding) [facility] Start: 05-29-2023 Sex Female (finding) [facility] Medical Equipment Procedure Code Equipment Code Equipment Origin al Text Equipment Identifier Dates Coil Axium 3d 10 mm 20cm - [id number] Start: 05-30-2023 Device Closure C elt Acd 6fr Vascular - [id number] Start: 05-30-2023 Coil Axium 3d 10 mm 30cm - [id number] Start: 05-30-2023 Device Embolizat ion 18mm 4mm Pipeline - [id number] Start: 05-30-2023 Device Closure C elt Acd 6fr Vascular - [id number] Start: 10-29-2023 Device Closure Mynxgrip 6-7fr - [id number] Start: 11-20-2023 Device Embolizat ion 14mm 4.25mm Pipeline - [id number] Start: 11-20-2023 Functional Status Date Assessment Result Facility 05-30-2023 Are you deaf, or do you have serious difficulty hearing No 05/30/2023 2:22 AM Bryan Yusuf, JOVANA No [facility] 05-30-2023 Are you blind, or do you have serious difficulty seeing, even when wearing glasses No 05/30/2023 2:22 AM Bryan Yusuf, JOVANA No [facility] 05-30-2023 Do you have serious difficulty walking or climbing stairs No 05/30/2023 2:22 AM Bryan Yusuf, JOVANA No [facility] 05-30-2023 Do you have difficul ty dressing or bathing No 05/30/2023 2:22 AM Bryan Yusuf, JOVANA No [facility] 05-30-2023 Because of a physica l, mental, or emotional condition, do you have difficulty doing errands alone such as visiting a physician's office or shopping No 05/30/2023 2:22 AM Bryan Yusuf, JOVANA No [facility] Mental Status Date Assessment Result Facility 05-30-2023 Because of a physica l, mental, or emotional condition, do you have serious difficulty concentrating, remembering, or making decisions No 05/30/2023 2:22 AM EST Bryan Saavedra, RN No [facility] 05-29-2023 Cognitive function Level Of Cons ciousness Awake;Alert;Appropriate;Fol lows Commands [facility] Work Phone: Clinical Notes 05-30-2023 to 07-29-2024 AICHA Peña - 07/29/2024 10:35 AM Marly Muse MD - 07/29/2024 7:10 AM Jose Welsh OT - 07/28/2024 10:26 AM Marly Muse MD - 07/28/2024 7:12 AM ESTDischafaehemge Instructions Note Date & Type Note Facility 07-29-2024 History of Present illness Narrative Care Management Discharge Note Selected Continued Care - Admitted Since 07/26/2024 No services have been selected for the patient. Patient medically stable for discharge per physician/medical team. Pt to discharge home with OP OT. Pt to be called to schedule follow-up neurosurgery appointment and Head CT. 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 FS TM FCx4 BUE: 5/5 throughout BLE: 5/5 throughout Endorses no paresthesias/dysthesias/allodynia No evidence of clonus No pronator drift Temp: [96.3 F (35.7 C)-98.8 F (37.1 C)] 97.4 F (36.3 C) Pulse (Heart Rate): [51-68] 63 Resp Rate: [15-20] 15 BP: (122-152)/(60-72) 145/66 O2 Sat (%): [92 %-98 %] 97 % O2 Sat (%): 97 % (07/29 426) O2 Device: room air (07/29 414) Flow (L/min): 0 (07/29 414) Oxygen Concentration (%): 21 (07/29 414) I/O last 3 completed shifts: In: 700 [P.O.:700] Out: 200 [Urine:200] ICP: No data recorded WBC/Hgb/Hct/Plts: 7.82/15.3/44.6/231 (07/29 3) Na/K+/Phos/Mg/Ca: 133/4.0/3.5/2.1/-- (07/29 3) Bun/Creat/Cl/CO2/Glucose: 21/0.75/98/25/104 (07/29 3) A/P: Ileana Leone is a 68 y.o. female w/ x pAfib (no longer on eliquis), HTN, HLD, GERD, glaucoma, and a giant right supraclinoid intracranial aneurysms that has undergone embolization (05/2023) and pipeline flow diversion stenting x2 (10/2023 and 11/2023). She was reportedly at home trying to have a bowel movement, stating, and when stood up she then became weak and was assisted to the ground. Son who is EMT reported some degree of orthostatic hypotension (though values not known). Went to OSH ED and workup revealed UTI, prescribed rocephin. Neuro: neuro checks Q4H neurochecks; transfer out of the ICU this AM - SBP < 160 - continue UTI treatment - concern for probable depression, requesting expedited inpatient evaluation by psych -- Dispo DC today Please page [phone] ([phone]) with questions. Principal Problem: Aneurysm Present on Admission: Aneurysm Complexity. Hyponatremia - Secondary to fluid shifts. Monitor. Obesity, class 1 Body mass index is 32.47 kg/m . - Follow with PCP for dietary and lifestyle modifications. Any conditions listed below are present on admission unless otherwise specified. . Acute Occupational Therapy Treatment Prior Gross Functional Mobility: independent Current AM-PAC score(s): CURRENT AM-PAC Activity Raw Score: 18 Based on the above AM-PAC score(s), and OT clinical judgment, discharge destination recommendation is: Home with Outpatient Rehab Services Barriers to discharge home: Patient needs assistance with functional mobility, Patient needs assistance with ADLs, Patient needs assistance with IADLs (see note below), Patient needs assistance with medication management, Patient needs assistance with self-care for medical condition (see note below), Cognitive impairments that impact safety (see note below) Mobility equipment available at home: none used ADL equipment available at home: shower chair (Built-in corner shower chair.) Equipment recommendations for discharge: (All AE/DME needs met.) Current therapy frequency recommendation(s) in acute: 5 times a week Precautions and Weightbearing Status: OT Existing Precautions/Restrictions: fall, cardiac No critical lines at this time Patient Safety Communication Prior to Visit: Nursing Subjective: Pt agreeable with encouragement. Pain: General Pain Documentation (Adult, OB, Peds) Presence of Pain: denies pain/discomfort Presence of Pain Score (Auto-calculated): 0 Objective/Observation: Vitals/Vitals Responses to Treatment: no adverse reaction to session O2 Device: room air Cognition Overall Cognitive Status: Impaired Arousal/Alertness: Delayed responses to stimuli Orientation Level: Oriented to person, Oriented to time (Oriented to hospital, not specific) Following Commands: Follows one step commands with increased time, Follows one step commands with repetition Safety Judgment: Decreased awareness of need for assistance, Decreased awareness of need for safety Awareness of Errors: Assistance required to correct errors made, Assistance required to identify errors made Deficits: Decreased awareness of deficits Cognition Comments: Increased processing time. Flat affect. Improving engagement with OOB activity. ADL Assessment/Intervention: Grooming Assistance: Contact guard assist Grooming Location: standing at sink Grooming Deficit: Increased time to complete, Retrieval of items, Manipulation of items, Follows safety/precautions, Problem solving, Properly identifying items (Vision) Grooming Skilled Rationale (Verbal/Tactile/Visual/Demonstrati on): Facilitate positioning, Facilitate postural control, Cues for cognitive deficit, Technique of activity, Cues for increased safety, [id number] assist, Compensatory techniques (Low vision strategies) Grooming Intervention/Details: Facilitated in oral care, washing face and brushing hair. Significant increased time/cues for setup; cues for tactile strategies to identify/retrieve/manipulate objects. LE Dressing Assistance: Minimal LE Dressing Location: standing (seated on toilet) LE Dressing Deficit: Increased time to complete, Generalized weakness, Balance, Properly identifying items, Manipulation of items (Vision) LE Dressing Skilled Rationale (Verbal/Tactile/Visual/Demonstrati on): Facilitate positioning, Technique of activity, Cues for increased safety, Compensatory techniques LE Dressing Intervention/Details: Facilitated in doffing/donning underwear. Multimodal cues. Toilet Assistance: Minimal Toileting Location: toilet Toileting Deficit: Increased time to complete, Balance, Grab bar use, Clothing management up, Follows safety/precautions, Properly identifying items, Manipulation of items Toilet Skilled Rationale (Verbal/Tactile/Visual/Demonstrati on): Facilitate positioning, Cues for cognitive deficit, Technique of activity, Cues for increased safety, Setup, Compensatory techniques Extremity Assessments: See OT Evaluation flowsheet for Extremity Measurement updates. Balance: Sitting Balance Static Sitting-Level of Assistance: Supervision Dynamic Sitting-Level of Assistance: Standby Standing Balance Static Standing-Level of Assistance: Contact guard Dynamic Standing-Level of Assistance: Minimum assistance, Contact guard Standing-Balance Support: Gait belt, Hand-held assist, No upper extremity support (sink) Skilled Rationale: Verbal cues, Tactile cues, Positioning, Full extension to upright positioning/posture, Cues for increased safety Mobility Assessment/Intervention: Supine to Sit Mobility Hancock Level: Supine->Sit: stand-by assist Bed Features/Set-up: Supine->Sit: Head of bed elevated, Use of bed rail Skilled Rationale: Verbal cues, Tactile cues, Positioning, Cues for increased safety Transfer Assessment/Intervention: Sit to Stand Transfer Hancock Level: Sit->Stand: contact guard assist Assistive Device: Sit->Stand: gait belt Skilled Rationale: Verbal cues, Tactile cues, Positioning, Hand placement, Full extension to upright positioning/posture, Technique of activity, Cues for increased safety Skilled Intervention/Details: Sit->Stand: x1 from EOB, x1 from toilet. Stand to Sit Transfer Hancock Level: Stand->Sit: (CGA-min) Assistive Device: Stand->Sit: gait belt Skilled Rationale: Verbal cues, Tactile cues, Positioning, Sequencing, Hand placement, Controlled descent for sitting, Technique of activity, Cues for increased safety Skilled Intervention/Details: Stand->Sit: Max cues for positioning and tactile strategies prior to initiating. Functional Mobility: Functional Mobility Hancock Level: Functional Mobility/Gait: minimum assist (75% patient effort) Assistive Device: Functional Mobility/Gait: gait belt, hand held assist Functional Mobility Distance: Distance needed to access restroom Ambulation Distance (Feet): 20 (5,10,10,5) Functional Mobility Deficits: Balance, Follow safety/precautions, Generalized weakness, Vision, Way finding, Slowed gait speed Functional Mobility Skilled Rationale: Cues for cognitive deficit, Facilitate positioning, Hand placement, Technique of activity, Cues for increased safety, Verbal cues, Tactile cues Skilled Intervention/Details - Functional Mobility/Gait: Multimodal cues and cues for low vision strategies/tactile sense for navigating environment. Slow and mildly unsteady. Outcome Score(s): [facility] Daily Activity Inpatient Short Form Putting on/Taking Off Lower Body Clothin - A Little Assistance Bathin - A Little Assistance Toiletin - A Little Assistance Putting on/Taking Off Upper Body Clothin - A Little Assistance Groomin - A Little Assistance Eatin - A Little Assistance [facility] Activity Raw Score: 18 [facility] Activity Functional Limitation/Modifier: 46.65% Currently Impaired in Daily Activity - CK Assessment & Plan: Patient progressing toward goals this date with improving ADL performance, with CGA to complete grooming tasks and min A to complete toileting and LB dressing activities; pt benefits from OT interventions/cues for improving low vision compensatory strategies. Patient will continue to benefit from skilled OT services to address vision, cognition, strength, activity tolerance, balance, functional transfers/mobility and ADLs for improved safety/independence with occupational performance. Patient Instruction/Education this session: Learners: Patient Education provided: Activity outside of therapy, Balance training, Compensatory strategies, Plan of care, Role of this discipline Teaching method: Verbal Education/Instruction, Simulation Learner response: States/Identifies/Teaches back, Returns demonstration Plan for next session: low vision strategies, ADL engagement, dynamic balance, functional mobility Acute OT Goals Plan of Care by Tiki Welsh OT at 07/28/2024 10:26 AM Version 1 of 1 Problem: OT - ADLs Goal: Lower Body Dressing - Patient will complete lower body dressing tasks with supervision using adaptive equipment/compensatory strategies as needed for improved ability to complete self-care activities. Outcome: Progressing Problem: OT - Transfers Goal: Transfers Toilet/ Bedside Commode - Patient will transfer to/from toilet/bedside commode with supervision for improved ability to safely complete ADLs. Outcome: Progressing Problem: OT - Balance Goal: Balance - Standing - Patient will perform 8-10 minutes of functional task in standing with supervision and good balance to promote safety and improved balance required for self-care activities. Outcome: Progressing Problem: OT - Vision Goal: Low Vision - Patient will demonstrate safe navigation of environment as evidenced by navigating novel environment with min cues, implementing low vision strategies. Outcome: Progressing Problem: OT - Cognition Goal: Cognition Home Maintenance - Patient will complete simulated home maintenance task: medication management with independence and 100% accuracy. Outcome: Ongoing OT treatment consisted of the following to work and progress towards the above goal(s): OT Evaluation and Treatment Time Self Care/Home Management (ADLs) Time Entry: 30 Treating Therapist: Tiki Welsh OT Additional Details: OT Co-Eval/Treatment Information Co-evaluation/co-treatment performed?: No simultaneous skilled care performed PPE used during patient interaction: gloves Patient location at end of session: chair Alarms on at end of session: RN aware, chair alarm Needs in reach. Time In: 09 Time Out: 1026 Total Visit Time: 30 minutes Total Treatment Time (skilled, billable minutes): 30 minutes Upon discontinuation of Acute Care Occupational Therapy Services or patient discharge from the hospital this note represents the current Occupational Therapy Discharge Summary. 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 FS TM FCx4 BUE: 5/5 throughout BLE: 5/5 throughout Endorses no paresthesias/dysthesias/allodynia No evidence of clonus No pronator drift Temp: [97.8 F (36.6 C)-98.8 F (37.1 C)] 98.8 F (37.1 C) Pulse (Heart Rate): [52-94] 53 Resp Rate: [16-21] 18 BP: (87-160)/(51-91) 138/67 O2 Sat (%): [95 %-100 %] 95 % Weight: [88.5 kg (195 lb 1.7 oz)] 88.5 kg (195 lb 1.7 oz) O2 Sat (%): 95 % (07/28 442) O2 Device: room air (07/28 399) I/O last 3 completed shifts: In: 610.6 [P.O.:520; IV Piggyback:90.6] Out: 350 [Urine:350] ICP: No data recorded WBC/Hgb/Hct/Plts: 7.36/14.1/42.2/203 (07/28 13) Na/K+/Phos/Mg/Ca: 133/3.9/3.4/1.9/-- (07/28 555) Bun/Creat/Cl/CO2/Glucose: 14/0.79/99/25/107 (07/28 555) A/P: Ileana Leone is a 68 y.o. female w/ x pAfib (no longer on eliquis), HTN, HLD, GERD, glaucoma, and a giant right supraclinoid intracranial aneurysms that has undergone embolization (05/2023) and pipeline flow diversion stenting x2 (10/2023 and 11/2023). She was reportedly at home trying to have a bowel movement, stating, and when stood up she then became weak and was assisted to the ground. Son who is EMT reported some degree of orthostatic hypotension (though values not known). Went to OSH ED and workup revealed UTI, prescribed rocephin. -- Edema surrounding aneurysm, not clinically significant \ Neuro: neuro checks Q4H neurochecks; transfer out of the ICU this AM - SBP < 160 - continue UTI treatment - concern for probable depression, requesting expedited inpatient evaluation by psych Please page [phone] ([phone]) with questions. Principal Problem: Aneurysm Present on Admission: Aneurysm Complexity. Hyponatremia - Secondary to fluid shifts. Monitor. Hypocalcemia - Continue to monitor and replete. Obesity, class 1 Body mass index is 32.47 kg/m . - Follow with PCP for dietary and lifestyle modifications. Any conditions listed below are present on admission unless otherwise specified. . Discharge Planning Assessment Is the patient able to participate in the assessment?: Yes (Patient requested that her family (spouse Serenity) answer the questions on her behalf.) Care Management Plan INGOT CASTER met with Patient at bedside to attempt to complete initial assessment. Patient appeared fatigued and requested that her spouse (Serenity) be contacted to assist with answering questions. INGOT CASTER placed call to Serenity (P: [phone]), who was in the waiting room. INGOT CASTER met with Spouse and Patient's 2 children in the conference room. They voiced agreement in the assessment being initiated. To spouse's knowledge, Patient has not completed a Healthcare Power of Television Cabinet Finisher document. Spouse reports that himself and their 2 children have been assisting with Patient's decision making as needed. Spouse reports that he and Patient live in a 1-story home with 1 step to enter through the garage. He mentioned that they do not currently have any medical equipment at home. No needs identified at this time. INGOT CASTER will continue to follow for discharge planning. Initial Discharge Planning Expected Discharge Disposition: (unknown at this time; pending therapy recommendations) Transportation Available for Discharge: (unknown at this time) Anticipated DME: (unknown at this time) Anticipated Services at Discharge: (unknown at this time) Patient Assessment Completed: Initial Legal Next of Kin Does the patient have a Guardian?: No Spouse: Yes Name and Contact information: Serenity Leone P: [phone] Adult Child(maureen), List All Adult Children: Yes Name and Contact information: Yesi Edwards P: [phone]; Son's info not provided. (Spouse reports they have 2 children.) Would you like to add additional adult children?: No Parent(s) - List All Living Parents: Yes Name and Contact information: Spouse reports Patient's father is living; no name or contact info provided. Would you like to add additional parents?: No Adult Sibling(s), List All Adult Siblings: Yes Name and Contact information: Spouse reports Patient has 3 siblings. No names or contact info provided. Would you like to add additional adult siblings?: No Nearest Adult Related by Blood or Adoption: No Patient Reports No Relatives by Blood or Adoption.: No Referral to Social Work to Identify Legal Next of Kin?: No Reviewed and Updated in Demographics? : Yes Advanced Care Planning Has the patient completed Advance Directives?: Not Completed Referral to Social Work for Advance Care Planning? : (Patient interest in completing HCPOA not assessed at this time.) Medication Management Does the patient have prescription insurance coverage? : Yes Is the patient on Anticoagulation? : No [id number] [place] [address] - [phone] [facility] [place] [address] Living Environment and Support System Is the patient from a facility or skilled nursing?: No Living Environment: House Patient Caregiving Responsibilities: Self, Spouse (Patient experiences low vision at baseline; Spouse reports he assists Patient as needed.) Patient-identified caregiver/support network: Family Who does the patient identify as a teachable caregiver(s)?: Spouse or Partner Services Does the patient use a home health or hospice agency?: No Current with dialysis?: No Does the patient use any community programs or services?: No Does patient use DME? : none Does the patient use oxygen?: No Does patient use medical supplies? : none Anticipated Changes Related to Illness/Injury? : Unknown at this time Initial ADLs Prior to Arrival What is the patient's baseline physical functioning prior to this acute illness?: independent What is the patient's baseline cognitive functioning prior to this acute illness?: independent Is the patient's baseline functioning changed by this acute illness? : Unable to assess Concerns with patient being able to care for themselves at home? : Unable to assess [employer] Specialist Does the patient or licensing representative express financial concerns? : No Leonor Peralta Social Work Student Available by Secure Chat Cosigned by AICHA Perry at 07/27/2024 1:12 PM EST Department of Pharmacy Antimicrobial Stewardship Documentation Note Patient: Ileana Leone Room/Bed: 1031/A Patient is being managed with ceftriaxone for Urinary Tract Infection. Dose of ceftriaxone has been adjusted from 2 gm Q24H to 1 gm Q24H. Please feel free to contact me with any further questions. Name: Juan Carias [facility] Phone: [phone] Date/Time: 07/27/2024 11:23 AM Department of Pharmacy Admission Medication Reconciliation Note Patient: Ileana Leone Room/Bed: 1031/A I have reviewed the patient's home medication list with the following sources Dispense Report. The home medication list status is: complete. All changes to the home medication list have been updated in [facility]. Updated CATH LAB Med List: Prior to Admission Medications Prescriptions Aspirin [address] tablet Sig: Take 1 tablet by mouth daily. Patient taking differently: Take 4.0123 tablets by mouth daily. Clopidogrel 75 MG tablet Sig: Take 1 tablet by mouth daily. Patient not taking: Reported on 07/27/2024 Flecainide 50 MG tablet Sig: Take 1 tablet by mouth 2 times daily. Latanoprost 0.005 % Solution ophthalmic solution Si drop At bedtime. Metoprolol succinate 25 MG tablet XL Sig: Take 1 tablet by mouth daily. Misc Natural Products (ADRENAL PO) Sig: Take by mouth. Multivitamin w/ minerals tablet Sig: Take 1 tablet by mouth daily. Probiotic Product (PROBIOTIC 10 ULTRA STRENGTH PO) Sig: Take by mouth. dorzolamide-timolol 2-0.5 % Solution ophthalmic solution Sig: Place 1 drop in both eyes 2 times daily. simvastatin 10 MG tablet Sig: Take 1 tablet by mouth every evening at 6 PM. venlafaxine 37.5 MG Cap SR 24HR capsule XR Sig: Take 1 capsule by mouth daily. Facility-Administered Medications: None Added to Home Medications: Venlafaxine 37.5 ER daily Deleted from Home Medications: Calcium acetate - no longer filling Clopidogrel - no longer taking Edits to Home Medications: N/A Other Comments: The patient's allergies were not reviewed at this time. Please feel free to contact me with any further questions. Name: Juan Carias [facility] Phone #: [phone] Date/Time: 07/27/2024 11:17 AM Time Spent: 10 minutes Acute Physical Therapy Evaluation Prior Gross Functional Mobility: independent Current AM-PAC score(s): CURRENT AM-PAC Mobility Raw Score: 17 Based on the above AM-PAC score(s) and PT clinical judgment, patient is a good candidate for discharge to Home Barriers to discharge home: None Mobility equipment available at home: none used ADL equipment available at home: shower chair (Built-in corner shower chair.) Equipment needed for discharge: to be determined Current therapy frequency recommendation in acute: PT Therapy Frequency: 3 times a week Activity Recommendations for outside of rehab session: x2 hallway ambulation Precautions and Weightbearing Status: Existing Precautions/Restrictions: fall Telemetry Patient Safety Communication Prior to Visit: Nursing Subjective: Patient is supine and agreeable to treatment Pain: General Pain Documentation (Adult, OB, Peds) Presence of Pain: reports pain/discomfort Pain Location: headache DVPRS (Defense and Veterans Pain Rating Scale) DVPRS: Rest: 2- mild pain DVPRS: Activity: 1- mild pain Home Setting Residence: (One-level home.) Lives With: spouse Patient reported support for discharge planning: intermittent physical assist, intermittent supervision (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 Clinical Observations: Reports only being able to see light Visual Impairments Observed?: Yes Acuity Near: (reports only being able to see light) Speech Speech: no gross deficits noted Hearing Hearing: hard of hearing Extremity Assessments: RLE Assessment RLE Assessment: Within Functional Limits LLE Assessment LLE Assessment: Within Functional Limits Sensation Overall Sensation: Intact Mobility Assessment: Rolling/Turning Mobility Hancock Level: Rolling/Turning: not tested Scooting Bridging Mobility Hancock Level: Scooting/Bridging: not tested Supine to Sit Mobility Hancock Level: Supine->Sit: contact guard assist Bed Features/Set-up: Supine->Sit: Head of bed elevated Skilled Rationale: Positioning, Sequencing, Hand placement, Technique of activity, Initiation and execution of task, Cues for increased safety Skilled Intervention/Details: Supine->Sit: Cues for sequencing with good carryover Sit to Supine Mobility Hancock Level: Sit->Supine: not tested Balance: Sitting Balance Static Sitting-Level of Assistance: Supervision Dynamic Sitting-Level of Assistance: Standby Skilled Rationale: Positioning, Sequencing, Hand placement, Technique of activity, Cues for increased safety Sitting Balance Skilled Intervention/Details: Cues to bring bilateral LE to floor to support seated balance EOB. Requires BUE support to maintain balance EOB Standing Balance Static Standing-Level of Assistance: Contact guard Dynamic Standing-Level of Assistance: Minimum assistance Standing-Balance Support: Gait belt, Hand-held assist Skilled Rationale: Positioning, Sequencing, Hand placement, Cues for increased safety, Initiation and execution of task, Technique of activity Standing Balance Skilled Intervention/Details: Stands with flexed posture with narrow SHANELL. Increased unsteadiness with dynamic standing balance due to visual deficits. Transfer Assessment: Sit to Stand Transfer Hancock Level: Sit->Stand: contact guard assist Assistive Device: Sit->Stand: gait belt Skilled Rationale: Positioning, Sequencing, Hand placement, Cues for increased safety, Technique of activity, Initiation and execution of task Skilled Intervention/Details: Sit->Stand: x1 from EOB. Cues for foot position prior to attempting transfer with good carryover Stand to Sit Transfer Hancock Level: Stand->Sit: contact guard assist Assistive Device: Stand->Sit: gait belt Skilled Rationale: Positioning, Sequencing, Hand placement, Technique of activity, Cues for increased safety Skilled Intervention/Details: Stand->Sit: Max cues for proximity to chair before attempting transfer with good carryover. Requires assistance to line self up with chair due to visual impairments. Bed-Chair Transfer Hancock Level: Bed<->Chair: not tested Gait/Functional Mobility: Gait Assessment Hancock Level: Gait: minimum assist (75% patient effort) Physical Assist: Gait: chair follow Assistive Device: Gait: gait belt, hand held assist Ambulation Distance (Feet): 80 Gait Deviations Identified: decreased dami, decreased gait speed, decreased heel strike, decreased stride length, decreased step length, decreased weight shifting, path deviation, narrow base of support Gait Skilled Rationale: verbal, demonstration, increase step length, increase step width Skilled Intervention/Details - Gait: Ambulates with decreased step length and gait speed. Pt is hesitant with gait training due to visual impairments. Improved gait speed and step length when provided with bilateral hand held assist. Slight bilateral path deviation. Stairs: Stairs Assessment Hancock Level: Stair Negotiation: not tested [facility] Basic Mobility Inpatient Short Form Turning over in bed: 3 - A Little Assistance Moving from lying on back to sittin - A Little Assistance Moving to and from bed to chair: 3 - A Little Assistance Sitting/standing from chair: 3 - A Little Assistance Walk in hospital room: 3 - A Little Assistance Climbing 3-5 steps with a railin - A Lot of Assistance [facility] Mobility Raw Score: 17 [facility] Mobility Functional Limitation: 50.57% Impaired in Basic Mobility Interventions: Assessment & Plan: Patient was admitted for weakness, edema surrounding previous aneurysm and seen for therapy evaluation related to mobility concerns, discharge recommendation. Exam findings include impairments in: Balance, Coordination, Posture, Gait/Locomotion, Transfers, Vision, Motor control. These impairments contribute to functional limitations including Decreased ambulation distance/endurance, Difficulty stair climbing/descent, Difficulty completing work/school activities, Increased fall risk, Difficulty ambulating on uneven/dynamic surfaces, Difficulty with bed mobility, Difficulty with transfers, Difficulty getting off the floor, Decreased functional mobility. Patient requires contact guard- minimum assist with functional mobility and transfers. Pt mobility is limited by visual impairments. Stands and ambulates with narrow SHANELL. Improved gait speed when provided with bilateral hand held assist. Max cues for obstacle negotation due to visual impairment. Requires skilled therapeutic intervention due to impaired balance and gait mechanics Current clinical presentation is Evolving - changing/inconsistent clinical characteristics (Moderate). Patient history factors impacting Plan Of Care include . Patient will benefit from skilled physical therapy to address these impairments, functional limitations, and participation restrictions and has good rehab potential to achieve therapy goals. Planned Therapy Interventions: balance training, bed mobility training, caregiver training/education, gait training, neuromuscular re-education, postural re-education, transfer training, endurance Patient Instruction/Education this session: Learners: Patient, Partner Education provided: Discharge recommendations Teaching method: Verbal Education/Instruction Learner response: Needs review Learning preferences: Auditory Learning considerations: Cognition Stroke education: Role of rehabilitation discipline Plan for next session: progress gait and standing balance Acute PT Goals Plan of Care by Daljit Hawthorne PT at 07/27/2024 7:32 AM Version 1 of 1 Problem: PT - General Goals Goal: Supine <-> Sit Transfers - Patient will perform supine to/from sit transfers with independence and without use of hospital bed features in order to improve functional mobility and safety. Outcome: Ongoing Goal: Sit <-> Stand Transfers - Patient will perform sit to/from stand transfers with modified independence and least restrictive device in order to improve functional mobility and safety. Outcome: Ongoing Goal: Ambulation - Patient will ambulate 200 feet with standby assistance and least restrictive device to improve ability to safely navigate home and community. Outcome: Ongoing Goal: Stairs - Patient will ascend/descend 1 stairs with contact guard assistance, without an assistive device, and single railing(s) to improve ability to safely navigate home and community. Outcome: Ongoing PT treatment consisted of the following to progress towards the above goal(s): PT Evaluation and Treatment Time PT Evaluation (Moderate) Time Entry: 28 Evaluating Therapist: Bruce Rosa Additional Details: PT Co-Eval/Treatment Information Co-evaluation/co-treatment performed?: Yes, simultaneous billable skilled care was necessary due to medical complexity and functional deficits Other discipline: OT Rationale for need to co-eval/treat: cognition, postural control Evaluation Complexity Components History: High (3 personal factors and/or comorbidities) Body Systems Review: Moderate (Addressing a total of 3 or more elements) Clinical Presentation: Evolving - changing/inconsistent clinical characteristics (Moderate) Clinical Decision Making Complexity: Moderate Time In: 0732 Time Out: 0800 Total Visit Time: 28 minutes Total Treatment Time (skilled, billable minutes): 28 minutes PPE used during patient interaction: gloves Patient location at end of session: chair Alarms on at end of session: none, RN aware Needs in reach. Upon discontinuation of Acute Care Physical Therapy Services or patient discharge from the hospital this note represents the current Physical Therapy Discharge Summary. Cosigned by Daljit Hawthorne PT at 07/27/2024 2:41 PM EST Associated attestation - Daljit Hawthorne PT - 07/27/2024 2:41 PM EST I, Daljit Hawthorne PT, provided line of sight supervision during this patient care session. I attest that all documentation reflects accurate skilled clinical decisions and judgements. Acute Occupational Therapy Evaluation Prior Gross Functional Mobility: independent Current AM-PAC score(s): CURRENT AM-PAC Activity Raw Score: 18 Based on the above AM-PAC score(s) and OT clinical judgment, discharge destination recommendation is: As pt appears close to baseline level of functioning, anticipate pt will progress to being safe to discharge Home with use of AE/DME (noted below) and Outpatient Rehab Services (pending availability of transportation- OT vision focus). Will continue to follow/assess. Barriers to discharge home: Patient needs assistance with functional mobility, Patient needs assistance with ADLs, Patient needs assistance with IADLs (see note below), Patient needs assistance with medication management, Patient needs assistance with self-care for medical condition (see note below), Cognitive impairments that impact safety (see note below) Mobility equipment available at home: none used ADL equipment available at home: shower chair (Built-in corner shower chair.) Equipment recommendations for discharge: (All AE/DME needs met.) Equipment issued: Current therapy frequency recommendation(s) in acute: 5 times a week Activity Recommendations for outside of rehab session: 1 person assist with gait belt for short distance mobility in room (significant cues required for visual deficits). Precautions and Weightbearing Status: OT Existing Precautions/Restrictions: fall, cardiac (Exit alarm.) Telemetry Patient Safety Communication Prior to Visit: Nursing Subjective: Pt's spouse present and reporting pt's mobility appears mildly more limited/unsteady than typical. 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 BP monitored secondary to request of medical team to monitor for orthostatic hypotension (noted below), pt reported no dizziness/lightheadedness throughout session. RN aware. 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 Clinical Observations: Pt presents with fluctuating visual threat in bilateral eyes (appears to be in random visual tristan bilaterally). Pt reports being unable to make out any figures in the room or colors. Visual Impairments Observed?: Yes Speech Speech: no gross deficits noted (Minimally verbal.) Hearing Hearing: no gross deficits noted Cognition Overall Cognitive Status: (At risk) Arousal/Alertness: Delayed responses to stimuli Orientation Level: Oriented to person, Oriented to place, Oriented to time Following Commands: Follows one step commands with increased time, Follows one step commands with repetition Safety Judgment: Decreased awareness of need for assistance, Decreased awareness of need for safety Awareness of Errors: Assistance required to identify errors made, Assistance required to correct errors made Deficits: Decreased awareness of deficits Attention Span: Difficulty dividing attention Memory: Decreased short term memory Problem Solving: Assistance required to identify errors made, Assistance required to generate solutions, Assistance required to implement solutions Cognition Comments: Delayed processing rate/motor planning; Increased lethargy/fatigue (moderately improving with OOB activity); Flat affect/depressed mood; Overall, decreased insight into deficits/safety awareness and limitations in higher-level executive functioning. ADLs: ADL Anticipated Performance (ADLs not directly observed this session): Eating, Grooming, Bathing, UE Dressing, LE Dressing, Toileting Eating Assistance: Minimal Eating Location: chair Grooming Assistance: Minimal Grooming Location: seated in chair Bathing Assistance: Minimal Bathing Location: seated on shower chair UE Dressing Assistance: Minimal UE Dressing Location: seated in chair LE Dressing Assistance: Minimal LE Dressing Location: seated in chair, standing Toilet Assistance: Minimal Toileting Location: toilet Extremity Assessments: RUE Assessment RUE Assessment: Within Functional Limits Right UE Assessment Details: 4+/5 grossly; Strong grasp strength. LUE Assessment LUE Assessment: Within Functional Limits Left UE Assessment Details: 4+/5 grossly; Strong grasp strength. Balance: Sitting Balance Static Sitting-Level of Assistance: Supervision Dynamic Sitting-Level of Assistance: Standby Sitting Balance Skilled Intervention/Details: Seated EOB for about 6-8 minutes with no difficulty, mostly requiring cues for safety. Standing Balance Static Standing-Level of Assistance: Contact guard Dynamic Standing-Level of Assistance: Minimum assistance Standing Balance Skilled Intervention/Details: Standing for about 5 minutes while completing functional transfers/mobility, mostly requiring cues for safety and with mild unsteadiness. Neuro: Sensation Overall Sensation: Intact Fine Motor Coordination Left Hand, Finger To Nose: unable to perform (Secondary to visual deficits.) Right Hand, Finger To Nose: unable to perform (Secondary to visual deficits.) Left Hand Thumb/Finger Opposition Skills: mild impairment Right Hand Thumb/Finger Opposition Skills: mild impairment Left Hand, Diadochokinesis Skills: mild impairment Right Hand, Diadochokinesis Skills: mild impairment Skin and Edema: Skin Integrity Skin Integrity Description: WFL (Visible areas.) Edema Edema: none noted Mobility Assessment: Supine to Sit Mobility [place] Level: Supine->Sit: contact guard assist Bed Features/Set-up: Supine->Sit: Head of bed elevated, Use of bed rail Skilled Rationale: Cues for increased safety, Technique of activity, Tactile cues, Verbal cues, Hand placement, Sequencing, Positioning Skilled Intervention/Details: Supine->Sit: Cues for sequencing/safety; Increased time/effort for performance with pt appearing increasingly limited in completion by delayed processing and visual deficits. Transfer Assessment: Sit to Stand Transfer [place] Level: Sit->Stand: contact guard assist (x 1 trial from EOB.) Assistive Device: Sit->Stand: gait belt (Arm and arm assist.) Skilled Rationale: Cues for increased safety, Technique of activity, Tactile cues, Verbal cues, Hand placement, Sequencing, Positioning Skilled Intervention/Details: Sit->Stand: Cues for sequencing/safety. Stand to Sit Transfer [place] Level: Stand->Sit: contact guard assist Assistive Device: Stand->Sit: gait belt Skilled Rationale: Cues for increased safety, Technique of activity, Tactile cues, Verbal cues, Hand placement, Sequencing, Positioning Skilled Intervention/Details: Stand->Sit: Mostly cueing for body positioning prior to initiation of descent due to visual deficits. Functional Mobility: Functional Mobility [place] Level: Functional Mobility/Gait: minimum assist (75% patient effort) Assistive Device: Functional Mobility/Gait: gait belt (Non-skid socks.) Functional Mobility Distance: Distance needed for common household mobility Skilled Intervention/Details - Functional Mobility/Gait: No LOB/SOB experienced; Pt mobilizing at a reduced/cautious rate, appearing to be significantly limited by visual deficits and requiring increased therapist cues/assistance for guidance. Pt mildly unsteady overall and pt's spouse reporting appearing more unsteady than typical. Outcome Score(s): CURRENT [facility] Daily Activity Inpatient Short Form Putting on/Taking Off Lower Body Clothin - A Little Assistance Bathin - A Little Assistance Toiletin - A Little Assistance Putting on/Taking Off Upper Body Clothin - A Little Assistance Groomin - A Little Assistance Eatin - A Little Assistance CURRENT [facility] Activity Raw Score: 18 CURRENT -[facility] Activity Functional Limitation/Modifier: 46.65% Currently Impaired in Daily Activity - CK Assessment & Plan: Patient was admitted for weakness after bowel movement and found to have UTI and probable depression and seen for therapy evaluation related to impairments in endurance/activity tolerance, dynamic standing balance, functional mobility, UE coordination/precision, vision, and higher-level cognition limiting pt's safe/independent ADL/IADL performance this date. Exam findings include impairments in: attention, balance, cognitive impairments, coordination, endurance, motor function, transfers, vision. These impairments contribute to occupational performance limitations including bathing, dressing, grooming, toileting, functional mobility, ADL transfers, leisure integration. The following factors impact the plan of care: Hx of aneurysm s/p embolization (05/2023) and pipeline flow diversion (10/2023 and 11/2023). Psychosocial Factors Positive indicators for performance: Adequate support system, Positive interpersonal relationships, Positive coping mechanisms Possible barriers for performance: Not active or linked with community programs Patient will benefit from skilled occupational therapy to address these impairments, occupational performance limitations, and participation restrictions. Patient's rehab potential is: good. Planned Therapy Interventions (OT Eval): ADL retraining, IADL retraining, balance training, bed mobility training, cognitive training, fine motor coordination training, functional activity tolerance, motor coordination training, transfer training, other (see comments) (Vision.) Patient Instruction/Education this session: Learners: Patient Education provided: Balance training, Bed mobility, Discharge recommendations, Plan of care, Positioning, Role of this discipline, Safety, Activity outside of therapy, Fall precautions, Functional transfers, Gait training safety Teaching method: Verbal Education/Instruction Learner response: Applies knowledge Learning preferences: Auditory Learning considerations: Cognition Stroke education: Role of rehabilitation discipline, Recovery process Plan for next session: Therapist to address further dynamic standing balance, low vision compensatory strategies, and ADL engagement. Acute OT Goals Plan of Care by Suzie Caal OT at 07/27/2024 7:33 AM Version 1 of 1 Problem: OT - ADLs Goal: Lower Body Dressing - Patient will complete lower body dressing tasks with supervision using adaptive equipment/compensatory strategies as needed for improved ability to complete self-care activities. Outcome: Ongoing Goal: Bathing - Patient will perform full body bathing routine with supervision while seated for improved ability to complete self-care activities Outcome: Ongoing Problem: OT - Transfers Goal: Transfers Toilet/ Bedside Commode - Patient will transfer to/from toilet/bedside commode with supervision for improved ability to safely complete ADLs. Outcome: Ongoing Problem: OT - Balance Goal: Balance - Standing - Patient will perform 8-10 minutes of functional task in standing with supervision and good balance to promote safety and improved balance required for self-care activities. Outcome: Ongoing Problem: OT - Cognition Goal: Cognition Home Maintenance - Patient will complete simulated home maintenance task: medication management with independence and 100% accuracy. Outcome: Ongoing Problem: OT - Vision Goal: Low Vision - Patient will demonstrate safe navigation of environment as evidenced by navigating novel environment with min cues, implementing low vision strategies. Outcome: Ongoing OT treatment consisted of the following to work and progress towards the above goal(s): OT Evaluation and Treatment Time OT Evaluation (Moderate) Time Entry: 30 Evaluating Therapist: Suzie Caal OT Additional Details: OT Co-Eval/Treatment Information Co-evaluation/co-treatment performed?: Yes, simultaneous billable skilled care was necessary due to medical complexity and functional deficits Other discipline: PT Rationale for need to co-eval/treat: cognition, coordination, postural control OT Evaluation Complexity Occupational Profile and Client History: Moderate - expanded history Assessment of Occupational Performance: Moderate (3-5 performance deficits) Clinical Decision/Performance Deficits: Moderate (detailed assessments w/several treatment options) Time In: 731 Time Out: 801 Total Visit Time: 30 minutes PPE used during patient interaction: gloves Patient location at end of session: chair Alarms on at end of session: RN aware Needs in reach. Upon discontinuation of Acute Care Occupational Therapy Services or patient discharge from the hospital this note represents the current Occupational Therapy Discharge Summary. 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 Exam and imaging have remained stable. SBP < 160. Optimize pain control. Reintroduce home regimen. Complete 5d ceftriaxone for UTI. Other supportive care as outlined below and stable for transfer. Abel Day MD NEUROCRITICAL CARE DAILY NOTE HOSPITAL VISIT DEMOGRAPHICS Patient: Ileana Leone Code status: Full Code Admission date: 07/26/2024 8:44 PM Hospital days: LOS: 1 day HISTORY OF PRESENT ILLNESS Ileana Leone is a 68 y.o. female with a past history of paroxsymal Afib no longer on AC, HTN, HLD, GERD, glaucoma, and a giant right supraclinoid intracranial aneurysms that has undergone embolization (05/2023) and pipeline flow diversion stenting x2 (10/2023 and 11/2023). She was reportedly at home trying to have a bowel movement, stating, and when stood up she then became weak and was assisted to the ground. Her blood pressure was checked by her son who is an EMT and was reportedly low (exact reading unknown) but then recovered to 121/70. Per her spouse her SBP typically runs in the 140s/150s. When standing back up, her BP was rechecked and it had dropped significantly (exact reading unknown). Given her aneurysm history and fluctuating blood pressure, her son recommended she go to the ED. At [facility] ED a UA was performed and found to be positive and she was started on ceftriaxone and a syncopal workup was pursued leading to a HCT which was initially concerning for increased sign of the aneurysm with surrounding hemorrhage. However, an MRI was then completed which only identified edema surrounding the aneurysm. She was transferred to [facility] for further management as a direct admit. INTERVAL HISTORY SINCE ADMISSION 07/26/2024: Transferred to [facility] 07/27: Transfer to floor per NSGY PHYSICAL EXAM GENERAL: Alert, flat affect, no acute distress, up to chair at bedside. HEENT: normocephalic, no scalp wounds nor lesions CARDIO: +S1S2, RRR, no m/r/g, no edema PULM: clear to auscultation bilaterally, equal chest rise; on RA ABDOMINAL: soft, nontender, nondistended, active bowel sounds EXTREMITIES: no wounds or lesions VASCULAR: 2+ distal pulses, capillary refill <3 seconds NEURO: Mental status: alert; oriented to person, place, year, and month; requires encouragement to participate in exam. Speech/language: fluent; comprehension intact; object naming intact; repetition intact Cranial nerves: CN II: Bilateral blindness. Pupils 6 mm with NPI of 0 bilaterally welt stitch cleaner III, IV and : EOMI. No nystagmus. CN V: Facial sensation intact to light touch. CN VII: Facial strength normal with symmetric movement. CN VIII: Hearing is grossly intact. CN IX and X: Soft palate elevates symmetrically in the midline CN XI: Shoulder shrug and sternocleidomastoid strength 5/5 bilaterally CN XII: Tongue is midline with normal movement; no fasciculations Motor: Normal bulk and tone. No UE drift. Delt Bicep Tricep Dental Equipment Technician KE KF DF PF EHL R 5 5 5 5 5 5 5 5 L 5 5 5 5 5 5 5 5 Sensation: Extremity sensation intact throughout. Coordination: without ataxia/dysmetria on FTS ASSESSMENT AND PLAN Neuro: Giant right supraclinoid intracranial aneurysms post embolization and pipeline flow diversion stenting x2 (10/2023 and 11/2023) - Monitor neurostatus with neurochecks Q4H - Prevent postop hemorrhage with goal SBP <160 (see cards) - Continue 325 mg aspirin daily (Plavix stopped early July) Pain/Sedation management: - Tylenol 650mg Q4H PRN Psych: Depression - Was recently started on venlafaxine 37.5 mg daily (home dose, holding) HEENT: Glaucoma Continue home Latanoprost and Dorzolamide-Timolol eye drops Pulm: No Current Issues O2 Sat (%): 96 % (07/27 0911) O2 Device: room air (07/27 0800) - Goal SpO2 >92%; wean FiO2 as tolerated - [id number], encourage pulmonary toileting Cards: Essential HTN HLD Atrial Fibrillation Temp: [97.6 F (36.4 C)-98.5 F (36.9 C)] 97.8 F (36.6 C) Pulse (Heart Rate): [44-94] 94 Resp Rate: [14-30] 21 BP: (87-185)/(51-92) 152/68 O2 Sat (%): [95 %-99 %] 96 % Weight: [88.5 kg (195 lb 1.7 oz)] 88.5 kg (195 lb 1.7 oz) - Goal SBP <160, MAP >65 - Home antihypertensives: Flecainide 50 mg BID and Metoprolol 25 mg ER Daily - Current regimen: - PRN labetalol and hydralazine - Metoprolol 25 mg ER Daily - 07/27 TTE: LVEF 62%. No significant valve disease. - 07/27 troponin: 4 - 07/26 ECG: Sinus bradycardia - Statin Therapy: Indicated if LDL >70; Home Simvastatin 10 mg not on formulary No results for input(s): CHOLESTEROL, TRIG, HDL, LDLDIRECT in the last 72 hours. Renal/: No Current Issues Fluid Balance: - Goal: euvolemia Intake/Output Summary (Last 24 hours) at 07/27/2024 1109 Last data filed at 07/27/2024 1000 Gross per 24 hour Intake 170 ml Output 900 ml Net -730 ml - Daily Chem 10; electrolytes replaced per [facility] protocol Recent Labs 07/27/24 004 SODIUM 137 POTASSIUM 3.8 CHLORIDE 100 CO2 26 BUN 11 CREATSERUM 0.67 PHOSPHORUS 2.7 MAGNESIUM 1.9 ICA 4.83 GI/Nutrition: No Current Issues No results for input(s): ALBUMIN, BILIDIRECT, BILITOTAL, ALKPHOS, ALT, AST, TP, AMYLASE, LIPASE in the last 72 hours. - DIET REGULAR Fay Swallow Screening Result: passed=cleared for oral intake Bowel regimen: - Senna, miralax GERD/Stress ulcer prophylaxis: - Continue home Pantoprazole 40 mg daily Endo: No Current Issues - Goal blood glucose 140-180 - Insulin SSI: Monitor for need Recent Labs 07/27/2448 GLUCOSE 101* ID: Urinary Tract Infection Recent Labs 07/27/2448 WBC 6.39 - Temp (24hrs), Av F (36.7 C), Min:97.6 F (36.4 C), Max:98.5 F (36.9 C) - PRN Tylenol for T>100.4F - Most recent and positive cultures: Date Collected Source Result Date Finalized 07/26 Urine Absent bacteria - Antiinfectives: Start Date Antiinfective Coverage Course Length Stop Date 07/25 Ceftriaxone 3 days 07/27 Heme/Onc: No Current Issues Recent Labs 07/27/2448 WBC 6.39 RBC 5.52* HGB 15.6* HCT 47.4* PLATELET 176 - Goal plt >100, INR <1.4, Hgb >7 DVT prophylaxis: - Lovenox DVT ppx Musc: No Current Issues - PT/OT consulted and following - Current Activity Order: AAT Fall Risk: - Assessed for patient fall risk and discussed safety measures during rounding. Social/Dispo: - Code status: Full Code - Primary Emergency Contact: Serenity Leone - HCPOA/LNOK: Serenity Vasu - 07/26: Last updated patient and at bedside. - 07/27: Updated patient and pt's at bedside regarding current medical plan and transfer out of ICU - 07/26: Medications reconciled - Discharge planning per PCRM/SW. Complexity. Obesity, class 1 Body mass index is 32.47 kg/m . - Follow with PCP for dietary and lifestyle modifications. Any conditions listed below are present on admission unless otherwise specified. . ICU Checklist: [ ] CAM-ICU [ ] ICU Diary [ ] SAT [ ] SBT [ ] DVT ppx; [ ] SCDs; [x] Lovenox, [ ] heparin [ ] Stress ulcer prophylaxis: pantoprazole (indication: home therapy) Lines/Tubes: - [place]: inserted /, (indication:) - [place]: inserted /, (indication:) - Rectal tube: inserted /, (indication:) - Enteral access: inserted /, [ ] gastric; [ ] post-pyloric - Central Line Type: Central Line Site: Date line placed: Central Line Indication: Can line be removed today? [] Yes, order to be placed [] No Dressing Clean/Dry/Intact: [] Yes [] No, RN notified Discussed with [facility] Attending, Dr. 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 ICP: No data recorded WBC/Hgb/Hct/Plts: 6.39/15.6/47.4/176 (07/27 48) Na/K+/Phos/Mg/Ca: 137/3.8/2.7/1.9/-- (07/27 48) Bun/Creat/Cl/CO2/Glucose: 11/0.67/100/26/101 (07/27 48) A/P: Ileana Leone is a 68 y.o. female w/ x pAfib (no longer on eliquis), HTN, HLD, GERD, glaucoma, and a giant right supraclinoid intracranial aneurysms that has undergone embolization (05/2023) and pipeline flow diversion stenting x2 (10/2023 and 11/2023). She was reportedly at home trying to have a bowel movement, stating, and when stood up she then became weak and was assisted to the ground. Son who is EMT reported some degree of orthostatic hypotension (though values not known). [facility] and workup revealed UTI, prescribed rocephin. Neuro: neuro checks Q4H neurochecks; transfer out of the ICU this AM - SBP < 160 - continue UTI treatment - obtain orthostatic BP reading - concern for probable depression, requesting expedited inpatient evaluation by psych - transfer out of ICU to [facility] med-surg - admit to hospital 07/27/24 - reorder home meds Please page [phone] ([phone]) with questions. Principal Problem: Aneurysm Present on Admission: Aneurysm Complexity. Obesity, class 1 There is no height or weight on file to calculate BMI. - Follow with PCP for dietary and lifestyle modifications. Any conditions listed below are present on admission unless otherwise specified. . Department of Pharmacy Outside Facility Transfer Note Patient: Ileana Leone Room/Bed: 1031/A Patient has transferred from an outside hospital ([facility]). I have contacted the facility and confirmed the following antimicrobial, antiepileptic, and anticoagulant medications were received by the patient prior to arrival at [facility]: Antimicrobials: Ceftriaxone 1 g on 07/25 @ 2046 Please feel free to contact me with any further questions. Name: Placido Ashley [facility] Phone #: [phone] Date/Time: 07/26/2024 11:35 PM NEUROCRITICAL CARE DAILY NOTE HOSPITAL VISIT DEMOGRAPHICS Patient: Ileana Leone Code status: Full Code Admission date: 07/26/2024 8:44 PM Hospital days: LOS: 0 days HISTORY OF PRESENT ILLNESS Ileana Leone is a 68 y.o. female with a past history of paroxsymal Afib no longer on AC, HTN, HLD, GERD, glaucoma, and a giant right supraclinoid intracranial aneurysms that has undergone embolization (05/2023) and pipeline flow diversion stenting x2 (10/2023 and 11/2023). She was reportedly at home trying to have a bowel movement, stating, and when stood up she then became weak and was assisted to the ground. Her blood pressure was checked by her son who is an EMT and was reportedly low (exact reading unknown) but then recovered to 121/70. Per her spouse her SBP typically runs in the 140s/150s. When standing back up, her BP was rechecked and it had dropped significantly (exact reading unknown). Given her aneurysm history and fluctuating blood pressure, her son recommended she go to the ED. At [facility] ED a UA was performed nd found to be positive and she was started on ceftriaxone and a syncopal workup was pursued leading to a HCT which was initially concerning for increased sign of the aneurysm with surrounding hemorrhage. However, an MRI was then completed which only identified edema surrounding the aneurysm. [facility] was [facility] for further management as a direct admit. INTERVAL HISTORY SINCE ADMISSION 07/26/2024: Transferred to [facility]U PHYSICAL EXAM GENERAL: Alert, flat affect, no acute distress HEENT: normocephalic, no scalp wounds nor lesions CARDIO: +S1S2, RRR, no m/r/g, no edema PULM: clear to auscultation bilaterally, equal chest rise; on RA ABDOMINAL: soft, nontender, nondistended, active bowel sounds EXTREMITIES: no wounds or lesions VASCULAR: 2+ distal pulses, capillary refill <3 seconds NEURO: Mental status: alert; oriented to person, place, year, and month; good attention Speech/language: fluent; comprehension intact; object naming intact; repetition intact Cranial nerves: CN II: Bilateral blindness. Pupils 6 mm with NPI of 0 bilaterally welt stitch cleaner III, IV and : EOMI. No nystagmus. CN V: Facial sensation intact to light touch. CN VII: Facial strength normal with symmetric movement. CN VIII: Hearing is grossly intact. CN IX and X: Soft palate elevates symmetrically in the midline CN XI: Shoulder shrug and sternocleidomastoid strength 5/5 bilaterally CN XII: Tongue is midline with normal movement; no fasciculations Motor: Normal bulk and tone. No UE drift. Neck Ext Neck Flex Delt Bicep Tricep WE WF Dental Equipment Technician HE HF KE KF DF PF EHL R 5 5 5 5 5 5 5 5 L 5 5 5 5 5 5 5 5 Sensation: Extremity sensation intact throughout. Coordination: without ataxia/dysmetria on FTS ASSESSMENT AND PLAN Neuro: Giant right supraclinoid intracranial aneurysms post embolization and pipeline flow diversion stenting x2 (10/2023 and 11/2023) - Monitor neurostatus with neurochecks Q2H - Prevent postop hemorrhage with goal SBP <160 (see cards) - Continue 325 mg aspirin daily (Plavix stopped early July) Pain/Sedation management: - Tylenol 650mg Q4H PRN Psych: Depression - Was recently started on venlafaxine 37.5 mg daily (home dose) HEENT: Glaucoma Continue home Latanoprost and Dorzolamide-Timolol eye drops Pulm: No Current Issues O2 Sat (%): 98 % (07/26 2146) O2 Device: room air (07/26 2146) - Goal SpO2 >92%; wean FiO2 as tolerated - QRF1BFD, encourage pulmonary toileting Cards: Essential HTN HLD Atrial Fibrillation Temp: [97.6 F (36.4 C)] 97.6 F (36.4 C) Pulse (Heart Rate): [44-49] 49 Resp Rate: [14-26] 19 BP: (145-175)/(72-80) 145/72 O2 Sat (%): [97 %-98 %] 98 % - Goal SBP <160, MAP >65 - Home antihypertensives: Flecainide 50 mg BID and Metoprolol 25 mg ER Daily - Current regimen: - PRN labetalol and hydralazine - Metoprolol 25 mg ER Daily - 07/27 TTE: P - 07/26 troponin: P - 07/26 ECG: Sinus bradycardia - Statin Therapy: Indicated if LDL >70; Home Simvastatin 10 mg not on formulary No results for input(s): CHOLESTEROL, TRIG, HDL, LDLDIRECT in the last 72 hours. Renal/: No Current Issues Fluid Balance: - Goal: euvolemia No intake or output data in the 24 hours ending 07/26/24 2200 - Daily Chem 10; electrolytes replaced per NCCU protocol No results for input(s): SODIUM, POTASSIUM, CHLORIDE, CO2, BUN, CREATSERUM, PHOSPHORUS, MAGNESIUM, ICA, CPK in the last 72 hours. GI/Nutrition: No Current Issues No results for input(s): ALBUMIN, BILIDIRECT, BILITOTAL, ALKPHOS, ALT, AST, TP, AMYLASE, LIPASE in the last 72 hours. - DIET NPO WITHOUT meds Bowel regimen: - Senna, miralax GERD/Stress ulcer prophylaxis: - Continue home Pantoprazole 40 mg daily Endo: No Current Issues - Goal blood glucose 140-180 - Insulin SSI: Monitor for need No results for input(s): GLUCOSE, HGBA1C in the last 72 hours. ID: Urinary Tract Infection No results for input(s): WBC, LACT, PROCALCITONI in the last 72 hours. - Temp (24hrs), Av.6 F (36.4 C), Min:97.6 F (36.4 C), Max:97.6 F (36.4 C) - PRN Tylenol for T>100.4F - Most recent and positive cultures: Date Collected Source Result Date Finalized 07/26 Urine P - Antiinfectives: Start Date Antiinfective Coverage Course Length Stop Date 07/25 Ceftriaxone 3 days 07/27 Heme/Onc: No Current Issues No results for input(s): WBC, RBC, HGB, HCT, PLATELET, PT, PTT, INR, FIBRINOGEN in the last 72 hours. - Goal plt >100, INR <1.4, Hgb >7 DVT prophylaxis: - none Musc: No Current Issues - PT/OT consulted and following - Current Activity Order: AAT Fall Risk: - Assessed for patient fall risk and discussed safety measures during rounding. Social/Dispo: - Code status: Full Code - Primary Emergency Contact: Serenity Leone - HCPOA/LNOK: , Serenity GibsonKelvey - 07/26: Last updated patient and at bedside. - 07/26: Medications reconciled - Discharge planning per PCRM/SW. Complexity. Obesity, class 1 There is no height or weight on file to calculate BMI. - Follow with PCP for dietary and lifestyle modifications. Any conditions listed below are present on admission unless otherwise specified. . ICU Checklist: [ ] CAM-ICU [ ] ICU Diary [ ] SAT [ ] SBT [ ] DVT ppx; [ ] SCDs; [ ] Lovenox, [ ] heparin [ ] Stress ulcer prophylaxis: pantoprazole (indication: home therapy) Lines/Tubes: - [place]: inserted /, (indication:) - [place]: inserted /, (indication:) - Rectal tube: inserted /, (indication:) - Enteral access: inserted /, [ ] gastric; [ ] post-pyloric - Central Line Type: Central Line Site: Date line placed: Central Line Indication: Can line be removed today? [] Yes, order to be placed [] No Dressing Clean/Dry/Intact: [] Yes [] No, RN notified Discussed with NCCU Attending, Dr. Hector Leone remains critically ill in the neurocritical care unit requiring frequent neurochecks, strict BP control and monitoring, follow up on imaging, strict I&Os, pain management, and monitoring for neurologic decline. Today I spent greater than 33 minutes providing critical care services, including evaluation and management of near syncope in the setting of supraclinoid aneurysm s/p coiling and stenting. This time does not include procedures. Ciera King APRN-TOÑITO 07/26/24 10:00 PM Check the treatment team to find the assigned neurocritical care provider (resident, fellow, BIOPROCESSING MANUFACTURING TECHNICIAN, or PA) or page/call the corresponding number below NCC1 (Beds 3182-3383): [place]nathan # [phone], pager #[phone] NCC2 (Beds 1086-4518, [address], and overflow): [place] #: [phone], pager #[phone] documented in this encounter [facility] 07-29-2024 Hospital Discharge instructions Chris Muse MD - 07/29/2024 8:56 AM EST Education Regarding Your Medication: If you are taking aspirin, clopidogrel (Plavix), warfarin (Coumadin) or other blood thinners, you must talk to your surgeon about when to restart these medicines. Unless approved by your surgeon, do not take any non-steroidal anti-inflammatory drugs, called NSAIDs. These medicines include ibuprofen (Motrin or Advil), naprosyn (Naproxen or Aleve), and arthritis medications such as Celebrex. Please discuss with your neurosurgeon prior to taking any of these medications. PAIN MEDICATION: As first line pain medication, please use: Tylenol Extra-strength/Acetaminophen, 2 tablets every 4-6 hours as needed for mild pain. DO NOT TAKE MORE THAN 4000MG PER DAY. A prescription for a stronger pain medicine may have been sent home with you. Please use this as needed as a second pain medication for breakthrough pain between Tylenol doses. Refills: Pain medication is typically not recommended for cranial injuries for more than one week. However, if your pain persists and is not controlled with Tylenol alone, refills may be provided by your neurosurgeon for a short time if indicated. Please call their office at if needed. Pain med refills that fall on a weekend need to be called in to our office by noon the Thursday before. Narcotic pain medication may cause constipation. Be sure to take stool softeners or laxatives while you are on narcotic pain medication. Take pain medication with food to prevent nausea. Wean yourself off narcotics as soon as you are able. These can cause rebound headaches and may even make headaches worse. Do not drink any alcoholic beverages until approved by your surgeon. This may thin your blood and increase your risk of bleeding. Do not drive after taking prescription pain medicine as it can make you drowsy. ACTIVITY: To protect your health, follow these guidelines from your surgeon: Keep your head elevated to prevent swelling. Use extra pillows while sleeping and do not lie flat. Walk as you are able. Start with short distances and work up to longer times standing and walking. Tell your surgeon about your progress at your follow-up visit. Use the hand railing for support when going up and down stairs. It is normal for your energy level and sleep patterns to change. These things slowly return to normal as you start your usual activities. Get extra sleep at night and take naps during the day while you heal. Remember, everyone s recovery is different, so don t get discouraged. You may do light housework, such as dusting, but not vacuuming. Limit lifting, pushing or pulling to 5 pounds or less. This is about gallon of milk. A gallon weighs 8 pounds and will be too heavy. Do not do any activity or exercise that makes your sweat or bend over so your head is lower than your heart. Do not drive or operative power tools or machinery until approved by your surgeon. Your surgeon will instruct you when it is safe to return to work. DIET: You may resume your home diet. Advance your diet as tolerated. It is important to get enough fluid to stay hydrated to prevent dizziness and falling. When to call your doctor: Call your doctor or nurse if you have and neurological changes: A headache that does not ease with pain medication after 2 hours. Mental confusion Increased sleepiness New onset of arm or hand weakness and leg or feet weakness New or worse problems with talking New or worse problems with balance or walking A seizure When to go to the Emergency Department: If you have any of these sings go to the nearest emergency department or call 911 right away: Any change in alertness; feel more sleepy than usual, restless and/or confused Breathing problems Chest pain (including chest pressure or tightness) Vision problems or a change in vision New problems with weakness, numbness, balance, walking or inability to move an arm or leg. Problems may be only on one side of the body. Change in face appearance, such as drooping on one side of the face Not able to speak or problems when talking Trouble swallowing Seizures Nausea and vomiting that continues or gets worse Severe headache or headache with a stiff neck ADDITIONAL CONTACTS: You may call your neurosurgeon s office, , Thursday through Thursday between 8:30am and 4:30pm if you have questions. The outpatient nurse may also be available to answer questions at that time. For after hours or the weekend, you may call the office which will take you to the answering service. Patient experience survey reminder You may receive a survey in the mail within a few weeks regarding your hospitalization. This helps us to improve the care and services we provide at [facility]. We truly appreciate you taking the time to fill this out. We particularly welcome any specific comments you may have (positive or constructive regarding your experience at [facility] so that we may continue to strive towards excellence for our patients. documented in this encounter [facility] 07-29-2024 Plan of care note Problem: Adult Inpatient Plan of Care Goal: Plan of Care Review Outcome: Progressing Goal: Patient-Specific Goal (Individualized) Outcome: Progressing Goal: Absence of Hospital-Acquired Illness or Injury Outcome: Progressing Goal: Optimal Comfort and Wellbeing Outcome: Progressing Goal: Readiness for Transition of Care Outcome: Progressing Problem: Fall Injury Risk Goal: Fall/Trauma/Injury Risk: Absence of Trauma/Injury/Falls Description: Patient will demonstrate the desired outcomes. Outcome: Progressing Goal: Knowledge of risk factors/behavior modification Description: Knowledge of risk factors/behavior modification for fall/injury prevention Outcome: Progressing Problem: Depression Goal: Improved Mood Outcome: Progressing [facility] 07-29-2024 Miscellaneous Notes Problem: Adult Inpatient Plan of Care Goal: Plan of Care Review Outcome: Progressing Goal: Patient-Specific Goal (Individualized) Outcome: Progressing Goal: Absence of Hospital-Acquired Illness or Injury Outcome: Progressing Goal: Optimal Comfort and Wellbeing Outcome: Progressing Goal: Readiness for Transition of Care Outcome: Progressing Problem: Fall Injury Risk Goal: Fall/Trauma/Injury Risk: Absence of Trauma/Injury/Falls Description: Patient will demonstrate the desired outcomes. Outcome: Progressing Goal: Knowledge of risk factors/behavior modification Description: Knowledge of risk factors/behavior modification for fall/injury prevention Outcome: Progressing Problem: Depression Goal: Improved Mood Outcome: Progressing Problem: OT - ADLs Goal: Lower Body Dressing - Patient will complete lower body dressing tasks with supervision using adaptive equipment/compensatory strategies as needed for improved ability to complete self-care activities. Outcome: Progressing Problem: OT - Transfers Goal: Transfers Toilet/ Bedside Commode - Patient will transfer to/from toilet/bedside commode with supervision for improved ability to safely complete ADLs. Outcome: Progressing Problem: OT - Balance Goal: Balance - Standing - Patient will perform 8-10 minutes of functional task in standing with supervision and good balance to promote safety and improved balance required for self-care activities. Outcome: Progressing Problem: OT - Vision Goal: Low Vision - Patient will demonstrate safe navigation of environment as evidenced by navigating novel environment with min cues, implementing low vision strategies. Outcome: Progressing Problem: OT - Cognition Goal: Cognition Home Maintenance - Patient will complete simulated home maintenance task: medication management with independence and 100% accuracy. Outcome: Ongoing Problem: Adult Inpatient Plan of Care Goal: Plan of Care Review Outcome: Progressing Goal: Patient-Specific Goal (Individualized) Outcome: Progressing Goal: Absence of Hospital-Acquired Illness or Injury Outcome: Progressing Goal: Optimal Comfort and Wellbeing Outcome: Progressing Goal: Readiness for Transition of Care Outcome: Progressing Problem: Adult Inpatient Plan of Care Goal: Plan of Care Review Outcome: Progressing Goal: Patient-Specific Goal (Individualized) Outcome: Progressing Goal: Absence of Hospital-Acquired Illness or Injury Outcome: Progressing Goal: Optimal Comfort and Wellbeing Outcome: Progressing Goal: Readiness for Transition of Care Outcome: Progressing Problem: PT - General Goals Goal: Supine <-> Sit Transfers - Patient will perform supine to/from sit transfers with independence and without use of hospital bed features in order to improve functional mobility and safety. Outcome: Progressing Goal: Sit <-> Stand Transfers - Patient will perform sit to/from stand transfers with modified independence and least restrictive device in order to improve functional mobility and safety. Outcome: Progressing Goal: Ambulation - Patient will ambulate 200 feet with standby assistance and least restrictive device to improve ability to safely navigate home and community. Outcome: Progressing Goal: Stairs - Patient will ascend/descend 1 stairs with contact guard assistance, without an assistive device, and single railing(s) to improve ability to safely navigate home and community. Outcome: Progressing Problem: OT - ADLs Goal: Lower Body Dressing - Patient will complete lower body dressing tasks with supervision using adaptive equipment/compensatory strategies as needed for improved ability to complete self-care activities. Outcome: Progressing Goal: Bathing - Patient will perform full body bathing routine with supervision while seated for improved ability to complete self-care activities Outcome: Progressing Problem: OT - Transfers Goal: Transfers Toilet/ Bedside Commode - Patient will transfer to/from toilet/bedside commode with supervision for improved ability to safely complete ADLs. Outcome: Progressing Problem: OT - Balance Goal: Balance - Standing - Patient will perform 8-10 minutes of functional task in standing with supervision and good balance to promote safety and improved balance required for self-care activities. Outcome: Progressing Problem: OT - Cognition Goal: Cognition Home Maintenance - Patient will complete simulated home maintenance task: medication management with independence and 100% accuracy. Outcome: Progressing Problem: OT - Vision Goal: Low Vision - Patient will demonstrate safe navigation of environment as evidenced by navigating novel environment with min cues, implementing low vision strategies. Outcome: Progressing On admission to B10S, from another [facility] inpatient unit a dual RN initial assessment of skin condition was performed by Roni Herrera RN and Anaya Díaz RN. Skin Assessment: Skin within defined limits:Yes Rusty Score: 19 LDA Added:No Roni Herrera RN Problem: OT - ADLs Goal: Lower Body Dressing - Patient will complete lower body dressing tasks with supervision using adaptive equipment/compensatory strategies as needed for improved ability to complete self-care activities. Outcome: Ongoing Goal: Bathing - Patient will perform full body bathing routine with supervision while seated for improved ability to complete self-care activities Outcome: Ongoing Problem: OT - Transfers Goal: Transfers Toilet/ Bedside Commode - Patient will transfer to/from toilet/bedside commode with supervision for improved ability to safely complete ADLs. Outcome: Ongoing Problem: OT - Balance Goal: Balance - Standing - Patient will perform 8-10 minutes of functional task in standing with supervision and good balance to promote safety and improved balance required for self-care activities. Outcome: Ongoing Problem: OT - Cognition Goal: Cognition Home Maintenance - Patient will complete simulated home maintenance task: medication management with independence and 100% accuracy. Outcome: Ongoing Problem: OT - Vision Goal: Low Vision - Patient will demonstrate safe navigation of environment as evidenced by navigating novel environment with min cues, implementing low vision strategies. Outcome: Ongoing Problem: PT - General Goals Goal: Supine <-> Sit Transfers - Patient will perform supine to/from sit transfers with independence and without use of hospital bed features in order to improve functional mobility and safety. Outcome: Ongoing Goal: Sit <-> Stand Transfers - Patient will perform sit to/from stand transfers with modified independence and least restrictive device in order to improve functional mobility and safety. Outcome: Ongoing Goal: Ambulation - Patient will ambulate 200 feet with standby assistance and least restrictive device to improve ability to safely navigate home and community. Outcome: Ongoing Goal: Stairs - Patient will ascend/descend 1 stairs with contact guard assistance, without an assistive device, and single railing(s) to improve ability to safely navigate home and community. Outcome: Ongoing documented in this encounter [facility] 07-28-2024 Plan of care note Problem: OT - ADLs Goal: Lower Body Dressing - Patient will complete lower body dressing tasks with supervision using adaptive equipment/compensatory strategies as needed for improved ability to complete self-care activities. Outcome: Progressing Problem: OT - Transfers Goal: Transfers Toilet/ Bedside Commode - Patient will transfer to/from toilet/bedside commode with supervision for improved ability to safely complete ADLs. Outcome: Progressing Problem: OT - Balance Goal: Balance - Standing - Patient will perform 8-10 minutes of functional task in standing with supervision and good balance to promote safety and improved balance required for self-care activities. Outcome: Progressing Problem: OT - Vision Goal: Low Vision - Patient will demonstrate safe navigation of environment as evidenced by navigating novel environment with min cues, implementing low vision strategies. Outcome: Progressing Problem: OT - Cognition Goal: Cognition Home Maintenance - Patient will complete simulated home maintenance task: medication management with independence and 100% accuracy. Outcome: Ongoing [facility] 07-28-2024 Plan of care note Problem: Adult Inpatient Plan of Care Goal: Plan of Care Review Outcome: Progressing Goal: Patient-Specific Goal (Individualized) Outcome: Progressing Goal: Absence of Hospital-Acquired Illness or Injury Outcome: Progressing Goal: Optimal Comfort and Wellbeing Outcome: Progressing Goal: Readiness for Transition of Care Outcome: Progressing [facility] 07-28-2024 Plan of care note Problem: Adult Inpatient Plan of Care Goal: Plan of Care Review Outcome: Progressing Goal: Patient-Specific Goal (Individualized) Outcome: Progressing Goal: Absence of Hospital-Acquired Illness or Injury Outcome: Progressing Goal: Optimal Comfort and Wellbeing Outcome: Progressing Goal: Readiness for Transition of Care Outcome: Progressing Problem: PT - General Goals Goal: Supine <-> Sit Transfers - Patient will perform supine to/from sit transfers with independence and without use of hospital bed features in order to improve functional mobility and safety. Outcome: Progressing Goal: Sit <-> Stand Transfers - Patient will perform sit to/from stand transfers with modified independence and least restrictive device in order to improve functional mobility and safety. Outcome: Progressing Goal: Ambulation - Patient will ambulate 200 feet with standby assistance and least restrictive device to improve ability to safely navigate home and community. Outcome: Progressing Goal: Stairs - Patient will ascend/descend 1 stairs with contact guard assistance, without an assistive device, and single railing(s) to improve ability to safely navigate home and community. Outcome: Progressing Problem: OT - ADLs Goal: Lower Body Dressing - Patient will complete lower body dressing tasks with supervision using adaptive equipment/compensatory strategies as needed for improved ability to complete self-care activities. Outcome: Progressing Goal: Bathing - Patient will perform full body bathing routine with supervision while seated for improved ability to complete self-care activities Outcome: Progressing Problem: OT - Transfers Goal: Transfers Toilet/ Bedside Commode - Patient will transfer to/from toilet/bedside commode with supervision for improved ability to safely complete ADLs. Outcome: Progressing Problem: OT - Balance Goal: Balance - Standing - Patient will perform 8-10 minutes of functional task in standing with supervision and good balance to promote safety and improved balance required for self-care activities. Outcome: Progressing Problem: OT - Cognition Goal: Cognition Home Maintenance - Patient will complete simulated home maintenance task: medication management with independence and 100% accuracy. Outcome: Progressing Problem: OT - Vision Goal: Low Vision - Patient will demonstrate safe navigation of environment as evidenced by navigating novel environment with min cues, implementing low vision strategies. Outcome: Progressing [facility] 07-27-2024 Nurse Note On admission to [facility], from another [facility] inpatient unit a dual RN initial assessment of skin condition was performed by Roni Herrera RN and Anaya Díaz RN. Skin Assessment: Skin within defined limits:Yes Rusty Score: 19 LDA Added:No Roni Herrera RN [facility] 07-27-2024 Plan of care note Problem: OT - ADLs Goal: Lower Body Dressing - Patient will complete lower body dressing tasks with supervision using adaptive equipment/compensatory strategies as needed for improved ability to complete self-care activities. Outcome: Ongoing Goal: Bathing - Patient will perform full body bathing routine with supervision while seated for improved ability to complete self-care activities Outcome: Ongoing Problem: OT - Transfers Goal: Transfers Toilet/ Bedside Commode - Patient will transfer to/from toilet/bedside commode with supervision for improved ability to safely complete ADLs. Outcome: Ongoing Problem: OT - Balance Goal: Balance - Standing - Patient will perform 8-10 minutes of functional task in standing with supervision and good balance to promote safety and improved balance required for self-care activities. Outcome: Ongoing Problem: OT - Cognition Goal: Cognition Home Maintenance - Patient will complete simulated home maintenance task: medication management with independence and 100% accuracy. Outcome: Ongoing Problem: OT - Vision Goal: Low Vision - Patient will demonstrate safe navigation of environment as evidenced by navigating novel environment with min cues, implementing low vision strategies. Outcome: Ongoing [facility] 07-27-2024 Plan of care note Problem: PT - General Goals Goal: Supine <-> Sit Transfers - Patient will perform supine to/from sit transfers with independence and without use of hospital bed features in order to improve functional mobility and safety. Outcome: Ongoing Goal: Sit <-> Stand Transfers - Patient will perform sit to/from stand transfers with modified independence and least restrictive device in order to improve functional mobility and safety. Outcome: Ongoing Goal: Ambulation - Patient will ambulate 200 feet with standby assistance and least restrictive device to improve ability to safely navigate home and community. Outcome: Ongoing Goal: Stairs - Patient will ascend/descend 1 stairs with contact guard assistance, without an assistive device, and single railing(s) to improve ability to safely navigate home and community. Outcome: Ongoing [facility] 07-27-2024 Note Acute Coronary Syndr ome (ACS): Initial Evaluation and Management: [email or web address] [facility] 07-26-2024 History and physical note Neurosurgery History and Physical HPI Ms. Ileana Leone is a 68 y.o. female w/ hx pAfib (no longer on eliquis), HTN, HLD, GERD, glaucoma, and a giant right supraclinoid intracranial aneurysms that has undergone embolization (05/2023) and pipeline flow diversion stenting x2 (10/2023 and 11/2023). She was reportedly at home trying to have a bowel movement, stating, and when stood up she then became weak and was assisted to the ground. Son who is EMT reported some degree of orthostatic hypotension (though values not known). [facility] and workup revealed UTI, prescribed rocephin. Cranial imaging obtained that OSH felt was concerning for possible hemorrhage into known aneurysms. Telestroke eval felt there could be hemorrhage so it was recommended for NCCU transfer. Upon review of imaging, it appears no acute hemorrhage into known aneurysms. CTA last week actually revealed decreased size in known aneurysms. No acute strokes, continued bri-aneurysmal edema locally. Pt spouse at bedside reports lethargy, apathy over the last month. Sometimes hard to get patient to engage or feel motivated to do anything. Does not acknowledge any focal deficits. She takes ASA 325 (plavix stopped earlier this month). ROS: All other systems are negative except as mentioned in HPI No past medical history on file. 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 PERMANENT N/A 11/20/2023 Laterality: N/A; Surgeon: Ji Villa MD, PhD; Location: [facility] OCCLUSION/EMBOLIZATION ENDOVASCULAR HEAD OR NECK TEMPORARY Right 10/29/2023 Laterality: Right; Surgeon: Ji Villa MD, PhD; Location: [facility] PLACEMENT CATH SELECTIVE COMMON CAROTID/INNOM ART W/ ANGIO IPSILAT EXTRACRANIAL CAROTID W/ RAD S&I N/A 10/29/2023 Laterality: N/A; Surgeon: Ji Villa MD, PhD; Location: [facility] PLACEMENT CATH SELECTIVE INTERNAL CAROTID ARTERY W/ ANGIO IPSILAT INTRACRANIAL CAROTID W/ RAD S&I Right 05/30/2023 Laterality: Right; Surgeon: Ji Villa MD, PhD; Location: [facility] OCCLUSION/EMBOLIZATION ENDOVASCULAR CONTAINER CRANE OPERATOR PERMANENT Right 05/30/2023 Laterality: Right; Surgeon: Ji Villa MD, PhD; Location: [facility] MA[facility] OR No family history on file. Social History Tobacco Use Smoking status: Former Types: Cigarettes Smokeless tobacco: Never Vaping Use Vaping status: Never Used Substance Use Topics Alcohol use: Not Currently Drug use: Never Allergies Allergies Allergen Reactions Lisinopril Cough Oxycodone Hallucination Silver Sulfadiazine Infusions Scheduled Meds cefTRIAXone 2 g Intravenous Q24H dorzolamide 1 drop Both Eyes BID Latanoprost 1 drop Both Eyes QHS Melatonin 6 mg Oral QHS Metoprolol succinate 25 mg Oral Daily Pantoprazole 40 mg Oral Daily Senna 8.6 mg Oral Daily Or Senna 8.6 mg Per NG tube Daily Timolol maleate 1 drop Both Eyes BID PRN Meds: Acetaminophen OR Acetaminophen, Calcium Gluconate OR calcium gluconate, hydrALAZINE OR hydrALAZINE, Labetalol OR Labetalol, magnesium sulfate, Polyethylene glycol OR Polyethylene glycol, potassium chloride OR Potassium chloride OR Potassium Bicarb-Citric Acid OR potassium chloride Home Meds Prior to Admission medications Medication Sig Start Date End Date Taking? Authorizing Provider acetaminophen 650 MG Tab CR Take 1 tablet by mouth every 6 hours as needed for Mild Pain for up to 7 days. 11/21/23 11/28/23 Matilda Muir MD Aspirin [address] tablet Take 1 tablet by mouth daily. Patient taking differently: Take 4.0123 tablets by mouth daily. 03/02/24 Bruce Louise APRN-TOÑITO calcium acetate - Phos Binder 667 MG capsule Take 1 capsule by mouth 3 times daily with meals. Historical Provider Clopidogrel 75 MG tablet Take 1 tablet by mouth daily. 01/05/24 07/03/24 Ji Villa MD, PhD dorzolamide-timolol 2-0.5 % Solution ophthalmic solution Place 1 drop in both eyes 2 times daily. 09/28/23 Historical Provider Flecainide 50 MG tablet Take 1 tablet by mouth 2 times daily. Historical Provider Latanoprost 0.005 % Solution ophthalmic solution 1 drop At bedtime. Historical Provider Metoprolol succinate 50 MG tablet XL Take 0.5 tablets by mouth daily. Historical Provider Misc Natural Products (ADRENAL PO) Take by mouth. Historical Provider Multivitamin w/ minerals tablet Take 1 tablet by mouth daily. Historical Provider Probiotic Product (PROBIOTIC 10 ULTRA STRENGTH PO) Take by mouth. Historical Provider simvastatin 10 MG tablet Take 1 tablet by mouth every evening at 6 PM. Historical Provider Vitals Temp: [97.6 F (36.4 C)-98 F (36.7 C)] 98 F (36.7 C) Pulse (Heart Rate): [44-59] 59 Resp Rate: [14-30] 24 BP: (145-185)/(72-80) 171/73 O2 Sat (%): [97 %-98 %] 98 % Physical General: NAD Cards: no obvious JVD Resp: no stridor or retractions Abd: soft NTND Ext: no edema Mental Status: Awake, alert, oriented x3. Cooperative, follows commands. Language fluent. 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 Facial sensation intact in all 3 branches. Facial movement intact and symmetric. SCM/Trap strength 5/5 bilaterally. Tongue is midline. Motor Function: SA EF EE WF WE FG DI HF KF KE PF DF Right 5 5 5 5 5 5 5 5 5 5 5 5 Left 5 5 5 5 5 5 5 5 5 5 5 5 Sensory Function: Sensation is intact to light touch and painful stimulation throughout. Coordination: no ataxia or dysmetria Labs No results for input(s): PT, INR in the last 72 hours. Imaging: ECHOCARDIOGRAM (Results Pending) A/P: Ileana Leone is a 68 y.o. female w/ x pAfib (no longer on eliquis), HTN, HLD, GERD, glaucoma, and a giant right supraclinoid intracranial aneurysms that has undergone embolization (05/2023) and pipeline flow diversion stenting x2 (10/2023 and 11/2023). She was reportedly at home trying to have a bowel movement, stating, and when stood up she then became weak and was assisted to the ground. Son who is EMT reported some degree of orthostatic hypotension (though values not known). Went to [facility] ED and workup revealed UTI, prescribed rocephin. - admit to neurosurgery [address] Villa - SBP < 160 - continue UTI treatment - obtain orthostatic BP reading - concern for probable depression, requesting expedited inpatient evaluation by psych - transfer out of ICU to [facility] med-surg - admit to hospital 07/27/24 - reorder home meds Wayne Sanchez MD NS2 ([id number]) Attending: Dr. Villa Complexity. Obesity, class 1 There is no height or weight on file to calculate BMI. - Follow with PCP for dietary and lifestyle modifications. Any conditions listed below are present on admission unless otherwise specified. . Cosigned by Ji Villa MD, PhD at 07/28/2024 6:23 PM EST Associated attestation - Ji Villa MD, PhD - 07/28/2024 6:23 PM EST ATTENDING ADDENDUM I, Ji Villa MD, PhD, have personally seen and examined the patient on 07/27/2024. I have reviewed all pertinent imaging. I agree with Dr. Sanchez's history, exam, assessment and plan. 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 Exam: AAOx4, blind, face symmetric, tongue midline. FC x4, SILT CT brain: No acute hemorrhage MRI brain: no evidence of right or bifrontal ischemia or acute hemorrhage. Has a urinary tract infection Has bradycardia with dizziness Has endorsed anhedonia, depressed mood for longer than 2 weeks. A: 1. Urinary tract infection; 2. Possible symptomatic bradycardia 3. Depression P: Neuro/Psych Psychiatry consult to evaluate for depression since patient being blind CV Echocardiogram -Cardiology consult Pulm -stable MYLA -Regular diet Renal -stable ID -antibiotics for UTI Heme -ASA 81 mg daily -DVT prophylaxis [facility] Work Phone: 07-26-2024 History and physical note Neurosurgery History and Physical HPI Ms. Ileana Leone is a 68 y.o. female w/ hx pAfib (no longer on eliquis), HTN, HLD, GERD, glaucoma, and a giant right supraclinoid intracranial aneurysms that has undergone embolization (05/2023) and pipeline flow diversion stenting x2 (10/2023 and 11/2023). She was reportedly at home trying to have a bowel movement, stating, and when stood up she then became weak and was assisted to the ground. Son who is EMT reported some degree of orthostatic hypotension (though values not known). [facility] and workup revealed UTI, prescribed rocephin. Cranial imaging obtained that OSH felt was concerning for possible hemorrhage into known aneurysms. Telestroke eval felt there could be hemorrhage so it was recommended for NCCU transfer. Upon review of imaging, it appears no acute hemorrhage into known aneurysms. CTA last week actually revealed decreased size in known aneurysms. No acute strokes, continued bri-aneurysmal edema locally. Pt spouse at bedside reports lethargy, apathy over the last month. Sometimes hard to get patient to engage or feel motivated to do anything. Does not acknowledge any focal deficits. She takes ASA 325 (plavix stopped earlier this month). ROS: All other systems are negative except as mentioned in HPI No past medical history on file. 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 PERMANENT N/A 11/20/2023 Laterality: N/A; Surgeon: Ji Villa MD, PhD; Location: [facility] OCCLUSION/EMBOLIZATION ENDOVASCULAR HEAD OR NECK TEMPORARY Right 10/29/2023 Laterality: Right; Surgeon: Ji Villa MD, PhD; Location: [facility] PLACEMENT CATH SELECTIVE COMMON CAROTID/INNOM ART W/ ANGIO IPSILAT EXTRACRANIAL CAROTID W/ RAD S&I N/A 10/29/2023 Laterality: N/A; Surgeon: Ji Villa MD, PhD; Location: [facility] PLACEMENT CATH SELECTIVE INTERNAL CAROTID ARTERY W/ ANGIO IPSILAT INTRACRANIAL CAROTID W/ RAD S&I Right 05/30/2023 Laterality: Right; Surgeon: Ji Villa MD, PhD; Location: [facility] MA[facility] OR OCCLUSION/EMBOLIZATION ENDOVASCULAR CONTAINER CRANE OPERATOR PERMANENT Right 05/30/2023 Laterality: Right; Surgeon: Ji Villa MD, PhD; Location: [facility] No family history on file. Social History Tobacco Use Smoking status: Former Types: Cigarettes Smokeless tobacco: Never Vaping Use Vaping status: Never Used Substance Use Topics Alcohol use: Not Currently Drug use: Never Allergies Allergies Allergen Reactions Lisinopril Cough Oxycodone Hallucination Silver Sulfadiazine Infusions Scheduled Meds cefTRIAXone 2 g Intravenous Q24H dorzolamide 1 drop Both Eyes BID Latanoprost 1 drop Both Eyes QHS Melatonin 6 mg Oral QHS Metoprolol succinate 25 mg Oral Daily Pantoprazole 40 mg Oral Daily Senna 8.6 mg Oral Daily Or Senna 8.6 mg Per NG tube Daily Timolol maleate 1 drop Both Eyes BID PRN Meds: Acetaminophen OR Acetaminophen, Calcium Gluconate OR calcium gluconate, hydrALAZINE OR hydrALAZINE, Labetalol OR Labetalol, magnesium sulfate, Polyethylene glycol OR Polyethylene glycol, potassium chloride OR Potassium chloride OR Potassium Bicarb-Citric Acid OR potassium chloride Home Meds Prior to Admission medications Medication Sig Start Date End Date Taking? Authorizing Provider acetaminophen 650 MG Tab CR Take 1 tablet by mouth every 6 hours as needed for Mild Pain for up to 7 days. 11/21/23 11/28/23 Matilda Muir MD Aspirin [address] tablet Take 1 tablet by mouth daily. Patient taking differently: Take 4.0123 tablets by mouth daily. 03/02/24 Bruce Louise, WILDLIFE PROTECTOR-[employer] CONSULTANT calcium acetate - Phos Binder 667 MG capsule Take 1 capsule by mouth 3 times daily with meals. Historical Provider Clopidogrel 75 MG tablet Take 1 tablet by mouth daily. 01/05/24 07/03/24 Ji Villa MD, PhD dorzolamide-timolol 2-0.5 % Solution ophthalmic solution Place 1 drop in both eyes 2 times daily. 09/28/23 Historical Provider Flecainide 50 MG tablet Take 1 tablet by mouth 2 times daily. Historical Provider Latanoprost 0.005 % Solution ophthalmic solution 1 drop At bedtime. Historical Provider Metoprolol succinate 50 MG tablet XL Take 0.5 tablets by mouth daily. Historical Provider Misc Natural Products (ADRENAL PO) Take by mouth. Historical Provider Multivitamin w/ minerals tablet Take 1 tablet by mouth daily. Historical Provider Probiotic Product (PROBIOTIC 10 ULTRA STRENGTH PO) Take by mouth. Historical Provider simvastatin 10 MG tablet Take 1 tablet by mouth every evening at 6 PM. Historical Provider Vitals Temp: [97.6 F (36.4 C)-98 F (36.7 C)] 98 F (36.7 C) Pulse (Heart Rate): [44-59] 59 Resp Rate: [14-30] 24 BP: (145-185)/(72-80) 171/73 O2 Sat (%): [97 %-98 %] 98 % Physical General: NAD Cards: no obvious JVD Resp: no stridor or retractions Abd: soft NTND Ext: no edema Mental Status: Awake, alert, oriented x3. Cooperative, follows commands. Language fluent. 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 Facial sensation intact in all 3 branches. Facial movement intact and symmetric. SCM/Trap strength 5/5 bilaterally. Tongue is midline. Motor Function: SA EF EE WF WE FG DI HF KF KE PF DF Right 5 5 5 5 5 5 5 5 5 5 5 5 Left 5 5 5 5 5 5 5 5 5 5 5 5 Sensory Function: Sensation is intact to light touch and painful stimulation throughout. Coordination: no ataxia or dysmetria Labs No results for input(s): PT, INR in the last 72 hours. Imaging: ECHOCARDIOGRAM (Results Pending) A/P: Ileana Leone is a 68 y.o. female w/ x pAfib (no longer on eliquis), HTN, HLD, GERD, glaucoma, and a giant right supraclinoid intracranial aneurysms that has undergone embolization (05/2023) and pipeline flow diversion stenting x2 (10/2023 and 11/2023). She was reportedly at home trying to have a bowel movement, stating, and when stood up she then became weak and was assisted to the ground. Son who is EMT reported some degree of orthostatic hypotension (though values not known). [facility] and workup revealed UTI, prescribed rocephin. - admit to neurosurgery [address] Villa - SBP < 160 - continue UTI treatment - obtain orthostatic BP reading - concern for probable depression, requesting expedited inpatient evaluation by psych - transfer out of ICU to [facility] med-surg - admit to hospital 07/27/24 - reorder home meds Wayne Sanchez MD NS2 ([id number]) Attending: Dr. Villa Complexity. Obesity, class 1 There is no height or weight on file to calculate BMI. - Follow with PCP for dietary and lifestyle modifications. Any conditions listed below are present on admission unless otherwise specified. . Cosigned by Ji Villa MD, PhD at 07/28/2024 6:23 PM EST Associated attestation - Ji Villa MD, PhD - 07/28/2024 6:23 PM EST ATTENDING ADDENDUM I, Ji Villa MD, PhD, have personally seen and examined the patient on 07/27/2024. I have reviewed all pertinent imaging. I agree with Dr. Sanchez's history, exam, assessment and plan. 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 Exam: AAOx4, blind, face symmetric, tongue midline. FC x4, SILT CT brain: No acute hemorrhage MRI brain: no evidence of right or bifrontal ischemia or acute hemorrhage. Has a urinary tract infection Has bradycardia with dizziness Has endorsed anhedonia, depressed mood for longer than 2 weeks. A: 1. Urinary tract infection; 2. Possible symptomatic bradycardia 3. Depression P: Neuro/Psych Psychiatry consult to evaluate for depression since patient being blind CV Echocardiogram -Cardiology consult Pulm -stable FENGI -Regular diet Renal -stable ID -antibiotics for UTI Heme -ASA 81 mg daily -DVT prophylaxis documented in this encounter [facility] 07-26-2024 Note [facility] Medical Records Department [address] [place] [address] Discharge Summary 07/26/24 1648 MR#: [id number] Acct: [id number] Name: ILEANA LEONE Rep #: [id number] : [id number] From: Jack Travis DO PCP: KRISTIAN Lockwood Status:ADM [place] Location: [place] [address] Providers Date of Admission: 07/25/24 Date of Discharge: 07/26/24 Primary Care Physician: KRISTIAN Lockwood Consultations 07/26/24 12:36 Tele [Consult: Tele-Neurology] Routine Consulting Provider: [facility] Reason for Consult: syncopal episode, cerebral aneurysm w/ surrounding edema EMERGENT Consult: No MD Notified: Yes Date Notified: 07/26/24 Time Notified: 12:55 Method of Notification: Answering Service Nursing Unit Staff Notify [facility] of Tele-Neurology Consult: Yes Reason For Visit: SYNCOPAL EPISODE Diagnosis Discharge Diagnosis (1) Paroxysmal atrial fibrillation: Status: Chronic Code(s): I48.0 - Paroxysmal atrial fibrillation (2) Essential (primary) hypertension: Status: Chronic Code(s): I10 - Essential (primary) hypertension (3) Hyperlipidemia: Status: Chronic Code(s): E78.5 - Hyperlipidemia, unspecified (4) UTI (urinary tract infection): Status: Acute Code(s): N39.0 - Urinary tract infection, site not specified (5) Syncope: Status: Acute Code(s): R55 - Syncope and collapse Medications at Discharge Home Medications Adrenal 200 mg PO DAILY supplement 04/30/16 multivitamin 1 ea PO DAILY 04/30/16 lactobacillus combination no.8 3 billion cell capsule (Adult Probiotic) 3,000 mmu cells PO DAILY 09/22/18 calcium carb-ergocalciferol (vit D2) 500 mg-125 unit tablet 1 tab PO TID 09/19/19 latanoprost 0.005 % eye drops 1 drp ophthalmic (eye) DAILY 09/19/19 simvastatin 10 mg tablet 10 mg PO QHS 09/19/19 brimonidine 0.2 %-timolol 0.5 % eye drops 1 drp ophthalmic (eye) Q12H 05/29/23 dorzolamide 22.3 mg-timolol 6.8 mg/mL eye drops 1 drp ophthalmic (eye) BID 10/09/23 metoprolol succinate 50 mg tablet,extended release 24 hr 25 mg PO DAILY 10/09/23 flecainide 50 mg tablet See Rx Instructions .Route .COMPLEX #180 tabs 02/01/24 aspirin 325 mg tablet,delayed release 325 mg PO DAILY 07/25/24 venlafaxine 37.5 mg capsule,extended release 24 hr 37.5 mg PO QHS 07/25/24 Hospital Course Operations None Procedures EKG and - (Chest x-ray, CT brain, MRI brain) Summary of Care Provided Minutes Spent on Discharge: 35 Hospital Course: Patient is a 68-year-old female who presented [facility] ED on 07/25/2024 after a syncopal episode at home. Hospital course as notable low. Patient transferred to [facility] on 07/26. 1. 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 Neurology followed. 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 Presented with syncopal episode as noted below. MRI brain showed previously treated aneurysm that now appears larger with surrounding edema. CT brain without contrast on 07/26 confirmed interval increase in size of aneurysm with associated hemorrhage. Transferred to [facility] urgently on 07/26. 2. Syncopal episode ??? Suspect related to worsening aneurysm with hemorrhage as noted above. Only mild ectopy noted while inpatient that was not concerning. 3. Concern for UTI ??? UA mildly infectious appearing on admit. Unclear if patient having symptoms. Treated with IV ceftriaxone while here. 4. Paroxysmal A-fib, hypertension, hyperlipidemia ??? Not on anticoagulation due to aneurysm as noted above. Holding home aspirin. Okay to continue home statin, Toprol and flecainide. 5. Depression ??? Continue home venlafaxine. Total clinical time spent by myself addressing the patient's medical issues, reviewing all the data, and collaborating with patient's care team: 35 minutes. Physical Exam Const alert, oriented x3 and no apparent distress Constitutional Narrative: Upper middle-aged female, blind, class I obesity, sitting up comfortably in bedside chair, answering some questions appropriately but also not responding to some questions at all, otherwise in no acute distress. General Appearance: cooperative and comfortable HEENT normocephalic, head/scalp atraumatic, hearing grossly normal bilaterally, nasal mucous membranes and turbinates normal and moist oral mucous membranes Eyes EOMs intact bilaterally and conjunctivae normal Eyes Narrative: Blind. Neck full ROM Chest inspection of chest normal Resp normal respiratory effort, normal air movement, no use of accessory muscles and clear to auscultation bilaterally Cardio regular rate, regular rhythm, no murmurs and peripheral pulses 2+ throughout GI normal to inspection, nondistended, normoactive (more content not included)... [facility] 07-25-2024 Note [facility] Medical Records Department [address] [place] [address] History Physical Exam 07/25/24 1950 MR#: [id number] Acct: [id number] Name: ILEANA LEONE Rep #: [id number] : [id number] From: Jairo Pack MD PCP: KRISTIAN Lockwood Status:ADM [place] Location: [place] [address] HPI - General General Date of Admission: 07/25/24 Date of Service: 07/25/24 Chief Complaint: syncopal episode HPI Narrative ILEANA LEONE, is a 68 F with a significant past medical history of paroxysmal atrial fibrillation (no longer anticoagulated), status post embolization of cerebral artery aneurysm with subsequent blindness (followed by [facility] neurology), presents to the emergency room with chief complaint of syncopal episode. For the past 5 days or so she has had increased constipation and was straining to have a bowel movement and when she stood up to wash her hands she felt like she was going to pass out and collapsed to the ground. She was weak and more confused for the next 2 or so minutes. She denies loss of consciousness. Patient denies trauma to the head upon falling and denies any focal neurologic weakness or headache at present time. She denies any fevers or chills, nausea or vomiting. Recently she had been informed that her aneurysm had decreased in size and that she was scheduled to have an outpatient MRI in the next 3 to 4 weeks. She was also recently started on venlafaxine to treat depression approximately 1 week ago. In the emergency room she was diagnosed with urinary tract infection and started on Rocephin and admission for observation due to recent change in mental status was requested. [facility] Medical History (Updated 07/25/24 @ 19:[address] Jairo Pack MD) A-fib Glaucoma Hyperlipidemia Obesity GERD (gastroesophageal reflux disease) Essential (primary) hypertension Paroxysmal atrial fibrillation Home Medications ???Medication ???Instructions ???Recorded ???Last Taken ???Type Adrenal 200 mg PO DAILY supplement 6 07/08/16 History multivitamin 1 ea PO DAILY 04/30/16 07/08/16 Hi story lactobacillus combination no.8 3 3,000 mmu cells PO DAILY 09/22/18 Unknown History billion cell capsule (Adult Probiotic) calcium carb-ergocalciferol (vit 1 tab PO TID 09/19/19 Unknown Hist ory D2) 500 mg-125 unit tablet latanoprost 0.005 % eye drops 1 drp ophthalmic (eye) DAILY 09/18 Unknown History simvastatin 10 mg tablet 10 mg PO QHS 09/19/19 Unknown Hist ory brimonidine 0.2 %-timolol 0.5 % 1 drp ophthalmic (eye) Q12H Unknown History eye drops dorzolamide 22.3 mg-timolol 6.8 1 drp ophthalmic (eye) BID 4 Unknown History mg/mL eye drops metoprolol succinate 50 mg 25 mg PO DAILY 10/09/23 Unknown Hi story tablet,extended release 24 hr flecainide 50 mg tablet See Rx Instructions .Route 4 Unknown Rx .COMPLEX #180 tabs aspirin 325 mg tablet,delayed 325 mg PO DAILY 07/25/24 Unknown H istory release venlafaxine 37.5 mg 37.5 mg PO QHS 07/25/24 Unknown Hi story capsule,extended release 24 hr Allergy/AdvReac Type Severity Reaction Status Date / Time lisinopril Allergy Unknown Verified 10/09/23 09:04 silver sulfadiazine (From Allergy Unknown Verified 10/09/23 09:04 Silvadene) Family History Father Hypertension Diabetes Mother Hypertension Cancer lung cancer Brother Hypertension Surgical History (Updated 07/25/24 @ 19:[address] Jairo Pack MD) S/P coil embolization of cerebral aneurysm History of left heart catheterization (05/05/16) History of cholecystectomy Social History Smoking Status: Former smoker alcohol intake: never substance use type: does not use caffeine: Yes Type: coffee Number of servings: 1 eating out: 1-3 times/week what type of physical activity do you participate in: other details: fit board frequency: daily duration: 30-45 minutes/day seatbelt use: always do you feel safe at home: Yes ROS Constitutional Constitutional: Denies chills or fever(s) Eyes Eyes: Denies change in vision ENT HEENT: Denies abnormal hearing Cardiovascular Cardiovascular: Denies chest pain Respiratory/Chest Respiratory/Chest: Denies cough Gastrointestinal Gastrointestinal: Denies abdominal pain Genitourinary Genitourinary: Denies dysuria Musculoskeletal Musculoskeletal: Denies extremity pain or joint pain Integumentary Integumentary: Denies dry skin Neurologic Neurologic: Reports confusion and weakness; Denies focal weakness Psychiatric Psychiatric: Denies depression Vital Signs Vital Signs Vital Signs: 07/25/24 14:10 07/25/24 15:27 07/25/24 15:32 Temperature 96.9 (more content not included)... [facility] 07-21-2024 History of Present illness Narrative Subjective: Ileana Leone returns to us for follow-up of a giant right supraclinoid intracranial aneurysms that has undergone pipeline flow diversion stenting x2. She is here with her and her son. She states that she has no effective vision in either eye. She can see halos but can not discern any definitive shapes her people. She denies new headache, seizure, numbness, weakness, bladder or bowel difficulties. Her and son brought up the fact that she now has some issues with memory, she sometimes stays up much later than she used to and brought up the example of getting into a bath at midnight and being in the bath for up to 4 hours. They also brought up concerns for possible depression, stating that she will respond with a monotone voice in one-word answers, not wanting to engage in conversation. She stopped her Plavix 1 week ago. She has remained on 325 milligrams of aspirin daily. Medications, allergies, and past medical history reviewed and updated in the chart Vitals: 07/21/24 1101 BP: 186/86 Pulse: 54 Resp: 12 Temp: 97.3 degrees F (36.3 degrees C) TempSrc: Infrared SpO2: 99% Weight: 88.5 kg (195 lb) Height: 1.651 m (5' 5) Physical Exam: she is A&O x4, speech fluent, naming and repetition intact, face symmetrical, tongue midline, no dysarthria, hearing equal bilateral, bilateral upper extremities 5/5 strength, bilateral lower extremities 5/5 strength, sensation grossly intact, no ataxia, no dysmetria, stable gait when guided with walking. I personally reviewed the following Imaging: The CT angiogram of the head demonstrates a coil mass along with 2 pipeline flow diversion stents in place. Inferior portion of the aneurysm appears slightly decreased compared to the previous CT angiogram. Assessment It was a pleasure to see Ms. Ileana Leone a 68 y.o. female in [facility]surgery [facility] today for a treated unruptured giant right supraclinoid ICA aneurysms.. Plan We agree that she should stay on 325 milligrams of aspirin for the time being. I will likely change the dose at her next follow-up meeting in 3 months. We discussed the the possibility of changes in her personality resulting from an organic brain issue. We will order an MRI of the brain without contrast. They asked for this to be done at [place] as they live 2 hours away. We will put that order in for them. Finally we discussed the possibility of depression secondary to her condition. I stated I had no problems with she being treated with antidepressant medication if needed. Her primary care physician we will be taking the lead on this. I spent 25 minutes total time providing care for the patient including reviewing images, exploring symptomatology, educating, and coordinating the plan of care. Voice recognition software was used for this note. I have edited this note but errors may occur documented in this encounter [facility] 03-17-2024 History of Present illness Narrative Subjective: Ileana Leone returns to us for follow-up after undergoing a pipeline flow diversion stent x2 for a giant supraclinoid right ICA aneurysms. Prior to the placement of the 2nd pipeline stent, she underwent a pipeline flow diversion stent with coil embolization. She is here with her and her son. She states that since her last visit she feels like her vision has gotten a little worse. She denies acute headache, seizure, weakness, numbness, bladder or bowel difficulties.. She underwent a CT angiogram of the brain today. Medications, allergies, and past medical history reviewed and updated in the chart Vitals: 03/17/24 1006 BP: 154/86 Pulse: 60 Temp: 98.6 degrees F (37 degrees C) TempSrc: Temporal Weight: 89.8 kg (198 lb) Height: 1.651 m (5' 5) Physical Exam: she is A&O x4, speech fluent, naming and repetition intact, able to perform simple math, EOMI, she has some light perception with respect to her vision but can not make out the number of fingers I am holding up. PERRL, face symmetrical, tongue midline, no dysarthria, hearing equal bilateral, bilateral upper extremities 5/5 strength, bilateral lower extremities 5/5 strength, sensation grossly intact, no ataxia, no dysmetria, stable gait I personally reviewed the following Imaging: The CT angiogram of the brain demonstrates placement of the pipeline flow diversion stent. There is opacification proximally and distally, demonstrating patency. There is 10.5 mm of residual aneurysms. This is stable compared to the previous scan. Of note the patient remains on Plavix and aspirin. Assessment It was a pleasure to see Ms. Ileana Leone a 68 y.o. female in Neurosurgery Clinic today for follow-up of an unruptured giant intracranial aneurysm. Plan We will see her again in [address] angiography. documented in this encounter [facility] 01-28-2024 History of Present illness Narrative Subjective: Ileana Leone returns to us for follow-up of a giant right supraclinoid ICA aneurysm that has undergone 2 pipeline flow diversion stents. She is here with her daughter. She states that her vision has not improved. We discussed how we do not expect it to improve. She denies acute headache, seizure, weakness, numbness, bladder or bowel difficulties. She did undergo a CT angiogram of the brain today. Medications, allergies, and past medical history reviewed and updated in the chart Vitals: 01/28/24 1507 BP: 116/76 Pulse: 65 Resp: 14 Temp: 97.6 degrees F (36.4 degrees C) TempSrc: Temporal SpO2: 96% Weight: 90.1 kg (198 lb 9.6 oz) Height: 1.651 m (5' 5) Physical Exam: she is A&O x4, speech fluent, naming and repetition intact, able to perform simple math, she continues to have visual difficulty, only being able to see silhouettes, face symmetrical, tongue midline, no dysarthria, hearing equal bilateral, bilateral upper extremities 5/5 strength, bilateral lower extremities 5/5 strength, sensation grossly intact, no ataxia, no dysmetria, stable gait I personally reviewed the following Imaging: A CT angiogram of the brain demonstrates nominal decreased opacification of the aneurysms. It has not completely occluded as yet. Assessment It was a pleasure to see Ms. Ileana Leone a 68 y.o. female in Neurosurgery Clinic today for follow-up of a giant right supraclinoid ICA aneurysms.. Plan She continues to be on her Plavix and aspirin. We will get a repeat CT angiogram in 2 months. Our current plan is to stop her Plavix at the end of the year. She will continue on 81 mg of aspirin daily indefinitely. documented in this encounter [facility] 12-24-2023 History of Present illness Narrative Subjective: Ileana Leone returns to us for follow-up of a giant right supraclinoid ICA aneurysm that has gone pipeline flow diversion stenting twice, the most recently in November of 2023. The patient is here with her and her daughter. She states that she remains unable to see except for light versus dark. She denies any acute headache, seizure, weakness, numbness, bladder or bowel difficulties. She has continued to remain off her Eliquis per cardiology's recommendations. She remains on Plavix and aspirin per our protocol. Medications, allergies, and past medical history reviewed and updated in the chart Vitals: 12/24/23 0946 BP: 153/67 Pulse: 56 Resp: 14 Temp: 97.7 degrees F (36.5 degrees C) TempSrc: Temporal SpO2: 98% Weight: 90.6 kg (199 lb 11.2 oz) Height: 1.651 m (5' 5) Physical Exam: she is A&O x4, speech fluent, naming and repetition intact, able to perform simple math, EOMI, visual tristan full, PERRL, face symmetrical, tongue midline, no dysarthria, hearing equal bilateral, bilateral upper extremities 5/5 strength, bilateral lower extremities 5/5 strength, sensation grossly intact, no ataxia, no dysmetria, stable gait I personally reviewed the following Imaging: The digital subtraction arteriogram done on November of 2023 demonstrates both pipeline placed, 1 month in the other with opacification through the stent and stagnation in the aneurysms. Assessment It was a pleasure to see Ms. Ileana Leone a 68 y.o. female in Neurosurgery Clinic today for follow-up of a giant, had symptomatic right internal carotid artery aneurysms.. Plan We will obtain a CT angiogram of the head in 4 weeks followed by a clinic visit with us. From a planning standpoint, she will remain on Plavix and aspirin until May of 2024. After that time she will go on aspirin 81 mg daily. I will plan to do a repeat angiogram in November of 2024. documented in this encounter [facility] 11-21-2023 Miscellaneous Notes AVS reviewed with patient. Prescriptions sent to home pharmacy. Patient acknowledges understanding of discharge instructions and denies questions at this time. PIV removed per policy. This RN assisted the patient to the lobby for transportation. Eric Araujo RN Problem: Adult Inpatient Plan of Care Goal: Plan of Care Review Outcome: Progressing Goal: Patient-Specific Goal (Individualized) Outcome: Progressing Goal: Absence of Hospital-Acquired Illness or Injury Outcome: Progressing Goal: Optimal Comfort and Wellbeing Outcome: Progressing Goal: Readiness for Transition of Care Outcome: Progressing Problem: Pain Acute Goal: Optimal Pain Control and Function Outcome: Progressing Problem: Fall Injury Risk Goal: Fall/Trauma/Injury Risk: Absence of Trauma/Injury/Falls Description: Patient will demonstrate the desired outcomes. Outcome: Progressing Goal: Knowledge of risk factors/behavior modification Description: Knowledge of risk factors/behavior modification for fall/injury prevention Outcome: Progressing On admission to [facility], from [place] a dual RN initial assessment of skin condition was performed by Emily Toure RN and Jerry WHALEY. Skin Assessment: Skin not within defined limits. bruises LDA Added:No Emily Toure RN Ileana Leone ([id number]) PRE OPERATIVE DIAGNOSIS Cerebral aneurysm, nonruptured [I67.1] POST OPERATIVE DIAGNOSIS Cerebral aneurysm, nonruptured [I67.1] PROCEDURE PERFORMED Procedure(s) (LRB): Placement Cath Selective Internal Carotid Artery W/ Angio Ipsilat Intracranial Carotid W/ Rad S&I (N/A) PLACEMENT STENT INTRAVASCULAR INTRACRANIAL PERCUTANEOUS (N/A) Occlusion/Embolization Endovascular Refueler Permanent (N/A) PRIMARY CLOSURE N/A INTRAOPERATIVE FINDINGS Persistent right supraclinoid ICA aneurysm with interval PED placed SURGEON Surgeons and Role: * Ji Villa MD, PhD - Primary ANESTHESIOLOGIST Anesthesiologist: Silvia Ortega MD Resource Analyst: MORENA Argueta; MORENA Rodrigues SURGICAL STAFF Resin Maker: Elvis Hoyos RN Executive Communications Manager: Ebony Guallpa; Billy Conroy COMPLICATIONS None ESTIMATED BLOOD LOSS Minimal SPECIMENS No specimen sent * No specimens in log * Ji Villa MD, PhD November 20, 2023 1:24 PM Operative Report DATE PERFORMED: 11/20/2023 PROCEDURE: 1. Right common carotid artery arteriogram. 2. Right internal carotid artery arteriogram. 3. Three-dimensional rotation arteriogram analyzed on independent workstation. 4. 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 5. Postprocedural right internal carotid artery arteriogram. 6. Right femoral artery arteriogram. 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 She underwent digital subtraction angiography with coil pipeline stenting in May 2023. She has had persistence of this aneurysm. She failed a balloon test occlusion. She is now here for digital subtraction angiography for a 2nd pipeline placement. SURGEON(S): Ji Villa MD, PHD. ANESTHESIA: General. DESCRIPTION OF PROCEDURE: Briefly, the patient was brought to the operating room, where she was transferred onto the operative bed. She was admitted without difficulty. All vascular access placed by Anesthesia. She had SCDs on her legs. The right groin was prepped and draped in sterile fashion. A time-out occurred to verify correct patient and procedure. The right femoral artery was accessed with micropuncture device and a 6-Afghan short sheath was placed. The 6-Afghan short sheath was exchanged for a 6-Afghan Shuttle sheath over a Glidewire. Through this 6-Afghan Shuttle sheath, a 5-Afghan Berenstein selector was advanced over the aortic arch into the right common carotid artery and a right common carotid artery arteriogram was performed. The catheter was advanced into right internal carotid artery and a right internal carotid arteriogram was performed. Three-dimensional rotation arteriogram was performed and analyzed on independent workstation. The patient's starting ACT was 144 seconds. The patient received 7000 units of heparin IV. The followup ACT was 284 seconds. The patient has been on Plavix and aspirin for more than 7 days. Her P2Y12 level was 56. After getting the appropriate views, a Phenom Plus catheter was advanced over a Phenom micro catheter was advanced over a Synchro 2 soft wire such that the Phenom Plus was in the posterior cavernous portion of the ICA and the Phenom itself was in the M1 division of the right middle cerebral artery. Next, a 4.25 x 14 mm pipeline shield device was then deployed across the supraclinoid ICA ending in the cavernous ICA. A postprocedural right internal carotid artery arteriogram was performed. A postprocedural right internal carotid artery cerebral arteriogram was performed. The catheter system was removed. The 6-Afghan Shuttle sheath was exchanged for 6-Afghan short sheath. The 6-Afghan short sheath was removed hemostasis was obtained with a 6-Afghan Mynx closure device. FINDINGS: The right common carotid artery arteriogram demonstrated antegrade filling of the common, internal, and external carotid arteries. There is about 20% stenosis of the ICA at the level of bifurcation. The right internal carotid artery arteriogram demonstrated antegrade filling of the anterior and middle cerebral arteries. There is opacification to the pipeline previous pipeline stent. There was persistence of the aneurysm. It measures almost 1.8 cm as well. The pipeline flow diversion stent was deployed as described above. A postprocedural right internal carotid artery arteriogram demonstrated antegrade filling of the anterior and middle cerebral arteries. There was significant more stagnation within the aneurysm than prior to the 2nd pipeline stent placement. As such, we did not place any additional hardware. The right femoral artery arteriogram demonstrated antegrade filling of the common femoral artery with puncture site above the level of bifurcation. COMPLICATIONS: None. DISPOSITION: Stable to recovery. 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 Dictated By: Ji Villa MD, PHD Ji Villa MD, PHD ATTENDING [facility] JOB: [id number] DOC: [id number] documented in this encounter [facility] 11-21-2023 Nurse Note AVS reviewed with patient. Prescriptions sent to home pharmacy. Patient acknowledges understanding of discharge instructions and denies questions at this time. PIV removed per policy. This RN assisted the patient to the lobby for transportation. Eric Araujo RN [facility] 11-21-2023 History of Present illness Narrative Discharge Planning Patient Assessment Admission Assessment Patient Assessment Completed: Initial Anticipated discharge disposition: Home Reason for Admission: Cerebral Aneurysmy s/p stent placement Is the patient able to participate in the assessment?: Yes Information source: Patient Demographics Verified and Updated: Yes Advanced Care Planning Has the patient completed Advance Directives?: Completed, Not Available in Medical Record Copy of Advance Directives was requested?: Yes Advance Directives Requested From: Patient, spouse at next juncture Legal Next of Kin Does the patient have a Guardian?: No Spouse: Yes Name and Contact information: Serenity Leone [phone] Adult Child(maureen), List All Adult Children: Yes Name and Contact information: Yesi Bran [phone] Referral to Social Work to Identify Legal Next of Kin?: No Reviewed and Updated in Demographics? : Yes Outpatient Providers Does patient have a primary care physician? : Yes When was the patient's last PCP visit?: > 30 days Does the patient follow any specialists?: Yes Reviewed and updated Care Team?: Yes Patient Care Team: Ganga Moy PA-C as PCP - General (Physician Beam Department Supervisor) Environment/Caregivers Is the patient from a facility or skilled nursing?: No Patient lives with: Spouse or Partner Living Environment: House Patient Caregiving Responsibilities: Self Patient-identified caregiver/support network: Family Who does the patient identify as a teachable caregiver(s)?: Spouse or Partner, Child(maureen) - Independent Services Does the patient use a home health or hospice agency?: No Current with dialysis?: No Does the patient use any community programs or services?: No Does patient use DME? : none Does the patient use oxygen?: No Anticipated Changes Related to Illness/Injury? : Unknown at this time Initial ADLs Prior to Arrival What is the patient's baseline physical functioning prior to this acute illness?: independent What is the patient's baseline cognitive functioning prior to this acute illness?: independent Are there therapy or specialists consults?: No Does the patient's home require any home modifications for discharge? : No CM to recommend therapy or other consults? : No Medication Management Does the patient have prescription insurance coverage? : Yes Is the patient on Anticoagulation? : Yes Provider or Clinic that manages Anticoagulation?: ASA,Plavix [id number] [place] [address] - [phone] [facility] [address] [employer] Specialist Does the patient or licensing representative express financial concerns? : No Employed?: Retired Coping/Stress Concerns about patient s coping and stress?: No Concerns about patient s caregiver s coping and stress?: No Values and Beliefs Cultural or adventist practices that may impact discharge planning and/or medical care?: No Initial Discharge Planning Anticipated discharge disposition: Home Transportation Available for Discharge: Private Vehicle, Family or Friend Anticipated DME: none Anticipated Services at Discharge: Outpatient follow up Patient Assessment Completed: Initial Expected Discharge Date: 11/21/2023 Discharge Planning Summary Met with patient and family at bedside complete initial assessment, introduced self and role. Anticipated discharge level of care: Home Case Management Plan :Interventions and Strategies Will continue to follow with medical team to monitor hospital course to identify any post acute services and medical follow up. No additional needs identified at this time. Nancy DOMINGUEZ RN [facility] Weekend Clinical Equipment Driver Available on secure chat. documented in this encounter [facility] 11-21-2023 Plan of care note Problem: Adult Inpatient Plan of Care Goal: Plan of Care Review Outcome: Progressing Goal: Patient-Specific Goal (Individualized) Outcome: Progressing Goal: Absence of Hospital-Acquired Illness or Injury Outcome: Progressing Goal: Optimal Comfort and Wellbeing Outcome: Progressing Goal: Readiness for Transition of Care Outcome: Progressing Problem: Pain Acute Goal: Optimal Pain Control and Function Outcome: Progressing Problem: Fall Injury Risk Goal: Fall/Trauma/Injury Risk: Absence of Trauma/Injury/Falls Description: Patient will demonstrate the desired outcomes. Outcome: Progressing Goal: Knowledge of risk factors/behavior modification Description: Knowledge of risk factors/behavior modification for fall/injury prevention Outcome: Progressing [facility] 11-20-2023 Nurse Note On admission to [facility], from [place] a dual RN initial assessment of skin condition was performed by Emily Toure RN and Jerry RN. Skin Assessment: Skin not within defined limits. bruises LDA Added:No Emily Toure RN [facility] 11-20-2023 Surgery Postoperative evaluation and management note Ileana Leone ([id number]) PRE OPERATIVE DIAGNOSIS Cerebral aneurysm, nonruptured [I67.1] POST OPERATIVE DIAGNOSIS Cerebral aneurysm, nonruptured [I67.1] PROCEDURE PERFORMED Procedure(s) (LRB): Placement Cath Selective Internal Carotid Artery W/ Angio Ipsilat Intracranial Carotid W/ Rad S&I (N/A) PLACEMENT STENT INTRAVASCULAR INTRACRANIAL PERCUTANEOUS (N/A) Occlusion/Embolization Endovascular Refueler Permanent (N/A) PRIMARY CLOSURE N/A INTRAOPERATIVE FINDINGS Persistent right supraclinoid ICA aneurysm with interval PED placed SURGEON Surgeons and Role: * Ji Villa MD, PhD - Primary ANESTHESIOLOGIST Anesthesiologist: Silvia Ortega MD Resource Analyst: MORENA Argueta; MORENA Rodrigues SURGICAL STAFF Resin Maker: Elvis Hoyos RN Executive Communications Manager: Ebony Guallpa; Billy Conroy COMPLICATIONS None ESTIMATED BLOOD LOSS Minimal SPECIMENS No specimen sent * No specimens in log * Ji Villa MD, PhD November 20, 2023 1:24 PM [facility] 11-20-2023 Surgery Postoperative evaluation and management note Operative Report DATE PERFORMED: 11/20/2023 PROCEDURE: 1. Right common carotid artery arteriogram. 2. Right internal carotid artery arteriogram. 3. Three-dimensional rotation arteriogram analyzed on independent workstation. 4. 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 5. Postprocedural right internal carotid artery arteriogram. 6. Right femoral artery arteriogram. 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 She underwent digital subtraction angiography with coil pipeline stenting in May 2023. She has had persistence of this aneurysm. She failed a balloon test occlusion. She is now here for digital subtraction angiography for a 2nd pipeline placement. SURGEON(S): Ji Villa MD, PHD. ANESTHESIA: General. DESCRIPTION OF PROCEDURE: Briefly, the patient was brought to the operating room, where she was transferred onto the operative bed. She was admitted without difficulty. All vascular access placed by Anesthesia. She had SCDs on her legs. The right groin was prepped and draped in sterile fashion. A time-out occurred to verify correct patient and procedure. The right femoral artery was accessed with micropuncture device and a 6-Afghan short sheath was placed. The 6-Afghan short sheath was exchanged for a 6-Afghan Shuttle sheath over a Glidewire. Through this 6-Afghan Shuttle sheath, a 5-Afghan Berenstein selector was advanced over the aortic arch into the right common carotid artery and a right common carotid artery arteriogram was performed. The catheter was advanced into right internal carotid artery and a right internal carotid arteriogram was performed. Three-dimensional rotation arteriogram was performed and analyzed on independent workstation. The patient's starting ACT was 144 seconds. The patient received 7000 units of heparin IV. The followup ACT was 284 seconds. The patient has been on Plavix and aspirin for more than 7 days. Her P2Y12 level was 56. After getting the appropriate views, a Phenom Plus catheter was advanced over a Phenom micro catheter was advanced over a Synchro 2 soft wire such that the Phenom Plus was in the posterior cavernous portion of the ICA and the Phenom itself was in the M1 division of the right middle cerebral artery. Next, a 4.25 x 14 mm pipeline shield device was then deployed across the supraclinoid ICA ending in the cavernous ICA. A postprocedural right internal carotid artery arteriogram was performed. A postprocedural right internal carotid artery cerebral arteriogram was performed. The catheter system was removed. The 6-Afghan Shuttle sheath was exchanged for 6-Afghan short sheath. The 6-Afghan short sheath was removed hemostasis was obtained with a 6-Afghan Mynx closure device. FINDINGS: The right common carotid artery arteriogram demonstrated antegrade filling of the common, internal, and external carotid arteries. There is about 20% stenosis of the ICA at the level of bifurcation. The right internal carotid artery arteriogram demonstrated antegrade filling of the anterior and middle cerebral arteries. There is opacification to the pipeline previous pipeline stent. There was persistence of the aneurysm. It measures almost 1.8 cm as well. The pipeline flow diversion stent was deployed as described above. A postprocedural right internal carotid artery arteriogram demonstrated antegrade filling of the anterior and middle cerebral arteries. There was significant more stagnation within the aneurysm than prior to the 2nd pipeline stent placement. As such, we did not place any additional hardware. The right femoral artery arteriogram demonstrated antegrade filling of the common femoral artery with puncture site above the level of bifurcation. COMPLICATIONS: None. DISPOSITION: Stable to recovery. 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 Dictated By: Ji Villa MD, PHD Ji Villa MD, PHD ATTENDING [facility] JOB: [id number] DOC: [id number] [facility] 11-20-2023 Nurse Surgical operation note 6/7Fr Mynx device deployed into right groin @ 1143 [facility] 11-20-2023 Nurse Note 6/7Fr Mynx device deployed into right groin @ 1143 documented in this encounter [facility] 11-17-2023 History of Present illness Narrative Patient Education Patient education regarding the following topic(s) was provided on 11/17/2023: overall plan of care . Those in attendance for the education included: patient, spouse, and daughter. Barriers in providing the education included: none. The following methods were used in providing the education: explanation and handout. [facility] handouts given included: After visit summary. The response of those in attendance was: states/identifies education topic. The following Clinical Intervention(s) occurred during today s visit: Extensive teaching provided to patient and or support team regarding overall plan of care I spoke with Ms Leone and her family today. See my preceding note for more details. In short, she has a history of AF, documented 10 years ago, but no known recurrence since other than occasional palpitations. Started on anticoagulation 2 years ago (reached age 66). No bleeding issues, though has cerebral aneurysms, and the anticoagulation has been implicated in their progression. I conveyed that it is reasonable to stop eliquis at this point. I offered a LINQ implantation to monitor for atrial fibrillation, and believe that documentation of this rhythm (again) should occur prior to stroke prophylaxis strategies. She declined LINQ today, will discuss with her family and contact me. We discussed that her risk of ischemic stroke is ~3% per year if she in fact has episodes of AF. She is in normal sinus rhythm today. BP 134/84 (BP Location: Left arm, BP Position: Sitting) Pulse 64 Resp 18 Ht 1.651 m (5' 5) Wt 93 kg (205 lb) SpO2 98% BMI 34.11 kg/m Smoking Status Former Should AF be documented, ALEX closure would be reasonable for stroke prophylaxis. She has neurosurgical procedure this Thursday. She will contact me thereafter should she wish to proceed with AF surveillance and/or discussion of stroke prophylaxis therapies. I also conveyed that rhythm monitoring and perhaps ALEX closure could be accomplished locally should she wish to pursue that. Mac Burch MD PhD Professor, Division of Cardiovascular Medicine [facility] [address] [place] [address], [address] [place] [address] Office: [phone] [email or web address] documented in this encounter [facility] 10-29-2023 Nurse Note 1819 Report received from Lisa lamtit. Previous shadowing marked on dressing has not increased. Pt's pulse intact. Will continue to monitor. Dr Hank Posada to come see pt.. 1922 Pt met [facility] discharge criteria. 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 [facility] Miscellaneous Notes 1819 Report received from Lisa [facility]. Previous shadowing marked on dressing has not increased. Pt's pulse intact. Will continue to monitor. Dr Hank Posada to come see pt.. 1922 Pt met [facility] discharge criteria. Pt transported via wheelchair to [facility] up. Dr. Hank Posada at [facility] to exam patient dressing. Per ok for patient to discharge home, dressing can be removed tomorrow am. Pt and family ok with plan. @1900. Reviewed AVS with patient and daughter. Pt daughter given copy of AVS and closure device brochure. Pt and family denies any questions or concerns at this time. Report called to Gissell WHALEY, all questions answered, VSS, anesthesia sign out completed. Ileana Leone ([id number]) PRE OPERATIVE DIAGNOSIS Cerebral aneurysm, nonruptured [I67.1] POST OPERATIVE DIAGNOSIS Cerebral aneurysm, nonruptured [I67.1] PROCEDURE PERFORMED Procedure(s) (LRB): OCCLUSION/EMBOLIZATION ENDOVASCULAR HEAD OR NECK TEMPORARY (Right) Placement Cath Selective Common Carotid/Innom Art W/ Angio Ipsilat Extracranial Carotid W/ Rad S&I (N/A) PRIMARY CLOSURE N/A INTRAOPERATIVE FINDINGS Persistent opacification of aneurysm through PED across giant right supraclinoid ICA aneurysm. Could not tolerate right BTO SURGEON Surgeons and Role: * Ji Villa MD, PhD - Primary ANESTHESIOLOGIST Anesthesiologist: Aleksandr Contreras DO STAIN SPRAYER: Carla Srivastava APRN-STAIN SPRAYER SURGICAL STAFF Resin Maker: Mariella Lizama RN Executive Communications Manager: Ebony Guallpa; Billy Conroy COMPLICATIONS None ESTIMATED BLOOD LOSS Minimal SPECIMENS No specimen sent. * No specimens in log * Ji Villa MD, PhD October 29, 2023 2:38 PM Operative Report DATE PERFORMED: 10/29/2023 PROCEDURES: 1. Left common carotid artery arteriogram. 2. Left internal carotid artery arteriogram. 3. Right common carotid artery arteriogram. 4. Right external carotid artery arteriogram. 5. Right internal carotid artery arteriogram. 6. Balloon test occlusion of the right internal carotid artery. 7. Postprocedural right internal carotid artery arteriogram. 8. Right femoral artery arteriogram. HISTORY OF PRESENT ILLNESS: This is a 67-year-old female who presented to us initially in May 2023, with visual difficulty. On imaging, they found giant, 3.5 cm, right supraclinoid ICA aneurysm. She underwent coil assisted pipeline embolization for said lesion. She is off her Plavix and has remained on both aspirin and Xarelto and apixaban. She is on the apixaban for atrial fibrillation. She has had some worsening of her vision, and so we are checking her aneurysm earlier and doing a balloon test occlusion at the same time to determine if the vessel can be sacrificed. SURGEON(S): Ji Villa MD, PhD. ANESTHESIA: Monitored anesthesia care. DESCRIPTION OF PROCEDURE: Briefly, she was brought to the operating room, and was transferred onto the operative bed. All pressure points were padded appropriately. The area was prepped and draped in a sterile fashion. A time-out occurred to verify correct patient and procedure. The right groin was infiltrated with 2% lidocaine. The right femoral artery was accessed with a micropuncture device, and a 6-Afghan short sheath was placed. The patient received 5000 units of heparin IV. She was already on apixaban and aspirin. Next to the 6-Afghan short sheath, a 90 cm Navien 072 was advanced over a Sim 2 selector that was reformatted and advanced into the left common carotid artery, and a left common carotid artery arteriogram was performed. The catheter was advanced into the left internal carotid artery, and left internal carotid artery arteriogram was performed. The catheter was withdrawn and advanced into the right common carotid artery, and a right common carotid artery arteriogram was performed. The catheter was advanced into the right external carotid artery, and right external carotid artery arteriogram was performed. The catheter was withdrawn and advanced into the right internal carotid artery, and a right internal carotid artery arteriogram was performed. The Navien was advanced over the Sim 2 selector, and the Sim 2 selector was removed. Next, a 4 x 7 mm Hyperfine balloon was advanced into the distal right internal carotid artery. The patient was asked to put her hands up in the air, and the balloon was inflated to generate an occlusion. The balloon was then deflated a minute later. The balloon was removed. A postprocedural right internal carotid artery arteriogram was performed. The catheter system was removed. A right femoral artery arteriogram was performed through the sheath. The sheath was removed and hemostasis obtained with a 6-Afghan Celt device. FINDINGS: The left common carotid artery arteriogram demonstrated antegrade filling of the common, internal, and external carotid arteries. There was no carotid stenosis. The left internal carotid artery arteriogram demonstrated antegrade filling of the anterior and middle cerebral arteries with a scant opacification across the anterior communicating artery. The capillary and venous phases were otherwise unremarkable. There is clearly a displacement of the anterior cerebral artery vessels secondary to the mass of the aneurysm. The right common carotid artery arteriogram demonstrated antegrade filling of the common, internal, and external carotid arteries. There was no carotid stenosis. The right external carotid artery arteriogram demonstrated antegrade filling of the extracranial circulation. The capillary and venous phases were unremarkable. There was no evidence of aneurysm or AVM. The right internal carotid artery arteriogram demonstrates antegrade filling of the middle cerebral artery only. There is persistent opacification of the aneurysm. The pipeline flow diversion stent is widely patent. The balloon test occlusion was performed as described above. Within a minute of inflating the balloon and creating an occlusion, her left arm involuntarily came down to her chest. This was defined as she could not tolerate the balloon being inflated and occluding the right ICA. The postprocedural right internal carotid artery arteriogram demonstrated antegrade filling of the middle cerebral artery. There was no evidence of acute thrombosis or embolism. The right femoral artery arteriogram demonstrated antegrade filling of the common femoral artery with puncture site above the level of bifurcation. COMPLICATIONS: None. DISPOSITION: Stable to recovery. IMPRESSION: 1. Persistent opacification of the aneurysm through the pipeline flow diversion stent, which was widely patent. 2. Could not tolerate balloon test occlusion clinically. Dictated By: Ji Villa MD, PHD Ji Villa MD, PHD ATTENDING [facility] JOB: [id number] DOC: [id number] documented in this encounter [facility] 10-29-[address] Hank Posada at [facility] to exam patient dressing. Per ok for patient to discharge home, dressing can be removed tomorrow am. Pt and family ok with plan. @1900. Reviewed AVS with patient and daughter. Pt daughter given copy of AVS and closure device brochure. Pt and family denies any questions or concerns at this time. [facility] 10-29-2023 Nurse Note Report called to Gissell WHALEY, all questions answered, VSS, anesthesia sign out completed. [facility] Hospital Discharge instructions Ji Villa MD, PhD - 10/29/2023 2:41 PM EDT Today you underwent a diagnostic angiogram under the care of Dr. Villa. This was performed to evaluate right supraclinoid ICA aneurysm. The following instructions will help you care for yourself, or be cared for upon your return home today. These are guidelines for your care right after your surgery only. Notify Your Doctor or Nurse if you have any of the following: SYMPTOMS OF WOUND INFECTION-- Increased pain in or around the incision Swelling around the incision Any drainage from the incision Incision separates or opens up Warmth in the tissues around the incision Redness or tenderness on the skin near the incision Fever (temperature greater than 101 degrees F) NEUROLOGICAL CHANGES-- Change in alertness Increased sleepiness Nausea and vomiting New onset of numbness or weakness in arms or legs New problems with your bowels or bladder New or worse problems with balance or walking Seizures, new or worsening UNRELIEVED HEADACHE PAIN-- New or increased pain unrelieved with pain medications Pain associated with nausea and vomiting Pain associated with other symptoms UNCONTROLLED BLEEDING/BRUISING-- Severe abdominal pain Black or bloody stools Persistent fatigue with shortness of breath Uncontrolled bleeding/bruising QUESTIONS OR PROBLEMS-- Any questions or problems that you are unsure about Wound Care: - Keep puncture site clean and dry - You may shower daily, but do not soak incision. - Pat the area dry after showering. - No tub baths, soaking, swimming for 1 week after angiogram. - You do not need to cover the puncture site. - Mild to moderate bruising and tenderness to the site is expected and may last up to 1-2 weeks after your procedure. - For groin puncture: A closure device was placed at the catheter insertion site. This is MRI compatible. Remove the dressing 24 hours after your procedure. - For wrist punctures: Do not lift greater than 3-5 pounds for 3 days. If your access site is bleeding, apply firm pressure for 10 minutes. Reinforce dressing rather than removing and checking frequently. If continues to bleed through the dressing after 1 hour, contact your neurosurgeon's office. Anticipatory Education: PAIN MED W/ Acetaminophen (Tylenol) --Narcotic pain medication may cause constipation. Be sure to take stool softeners or laxatives while you are on narcotic pain medication. --Do not drive after taking prescription pain medicine. If this medicine is too strong, or no longer necessary, you may take: - Tylenol Extra-strength/Acetaminophen, 2 tablets every 4-6 hours as needed for mild pain. DO NOT TAKE MORE THAN 4000MG PER DAY from combined sources. NOTE: Remember to eat when taking pain medicines in order to avoid nausea. Watch for constipation. Eat plenty of fruits, vegetables, juices, and drink 6-8 glasses of water each day. Constipation: Stay active and drink at least 6-8 cups of fluid each day to prevent constipation. If you need a laxative or stool softener follow the package directions or consult with your local pharmacists if you have questions. If you had general anesthesia, rest for [address], drink alcohol beverages or make any important decisions during this time. General anesthesia may cause sore throat, jaw discomfort or muscle aches. These symptoms can last for one or two days. Activity: Please follow these instructions: Advance your activity as you can tolerate. You may do light house work; nothing strenuous You may walk all you want. You may go up and down the steps. Use the railing for support Do not do excessive bending, straining or heavy lifting for 4-6 days after your procedure It is normal for your energy level and sleep patterns to change after this procedure. Get extra sleep at night and take naps during the day to help you feel less tired. Take rest periods during the day. Complete recovery may take a few weeks. You may resume driving after 48-72 hours recovery. Diet: Your doctor has recommended that you follow these diet instructions at home. Refer to the patient education materials you received during your hospital stay. If you would like more nutrition counseling, ask your doctor about making an appointment with an outpatient dietitian. Resume your home diet Medications: Please review your home medications as we may have made changes during this visit Neurosurgery Contacts: Ji Villa MD, PhD Bruce Louise, TOÑITO Ely RN Phone number: [phone] Hours to reach your Neurosurgeons office: You may call your neurosurgeon s office if you have questions. The outpatient nurse may also be available to answer questions at that time. If you reach our answering service please leave a message and someone will return your call. Patient Experience Survey Reminder You may receive a survey in the mail within a few weeks regarding your hospitalization. This helps us to improve the care and services we provide at [facility]. We truly appreciate you taking the time to fill this out. We particularly welcome any specific comments you may have (good or bad!) regarding your experience at [facility] so that we may use them to continue to strive towards excellence for our patients. documented in this encounter [facility] 10-29-2023 Surgery Postoperative evaluation and management note Ileana GibsonKelvey ([id number]) PRE OPERATIVE DIAGNOSIS Cerebral aneurysm, nonruptured [I67.1] POST OPERATIVE DIAGNOSIS Cerebral aneurysm, nonruptured [I67.1] PROCEDURE PERFORMED Procedure(s) (LRB): OCCLUSION/EMBOLIZATION ENDOVASCULAR HEAD OR NECK TEMPORARY (Right) Placement Cath Selective Common Carotid/Innom Art W/ Angio Ipsilat Extracranial Carotid W/ Rad S&I (N/A) PRIMARY CLOSURE N/A INTRAOPERATIVE FINDINGS Persistent opacification of aneurysm through PED across giant right supraclinoid ICA aneurysm. Could not tolerate right BTO SURGEON Surgeons and Role: * Ji Villa MD, PhD - Primary ANESTHESIOLOGIST Anesthesiologist: Aleksandr Contreras DO STAIN SPRAYER: Carla Srivastava APRN-STAIN SPRAYER SURGICAL STAFF Resin Maker: Mariella Lizama RN Executive Communications Manager: Ebony Guallpa; Billy Conroy COMPLICATIONS None ESTIMATED BLOOD LOSS Minimal SPECIMENS No specimen sent. * No specimens in log * Ji Villa MD, PhD October 29, 2023 2:38 PM [facility] 10-29-2023 Surgery Postoperative evaluation and management note Operative Report DATE PERFORMED: 10/29/2023 PROCEDURES: 1. Left common carotid artery arteriogram. 2. Left internal carotid artery arteriogram. 3. Right common carotid artery arteriogram. 4. Right external carotid artery arteriogram. 5. Right internal carotid artery arteriogram. 6. Balloon test occlusion of the right internal carotid artery. 7. Postprocedural right internal carotid artery arteriogram. 8. Right femoral artery arteriogram. HISTORY OF PRESENT ILLNESS: This is a 67-year-old female who presented to us initially in May 2023, with visual difficulty. On imaging, they found giant, 3.5 cm, right supraclinoid ICA aneurysm. She underwent coil assisted pipeline embolization for said lesion. She is off her Plavix and has remained on both aspirin and Xarelto and apixaban. She is on the apixaban for atrial fibrillation. She has had some worsening of her vision, and so we are checking her aneurysm earlier and doing a balloon test occlusion at the same time to determine if the vessel can be sacrificed. SURGEON(S): Ji Villa MD, PhD. ANESTHESIA: Monitored anesthesia care. DESCRIPTION OF PROCEDURE: Briefly, she was brought to the operating room, and was transferred onto the operative bed. All pressure points were padded appropriately. The area was prepped and draped in a sterile fashion. A time-out occurred to verify correct patient and procedure. The right groin was infiltrated with 2% lidocaine. The right femoral artery was accessed with a micropuncture device, and a 6-Afghan short sheath was placed. The patient received 5000 units of heparin IV. She was already on apixaban and aspirin. Next to the 6-Afghan short sheath, a 90 cm Navien 072 was advanced over a Sim 2 selector that was reformatted and advanced into the left common carotid artery, and a left common carotid artery arteriogram was performed. The catheter was advanced into the left internal carotid artery, and left internal carotid artery arteriogram was performed. The catheter was withdrawn and advanced into the right common carotid artery, and a right common carotid artery arteriogram was performed. The catheter was advanced into the right external carotid artery, and right external carotid artery arteriogram was performed. The catheter was withdrawn and advanced into the right internal carotid artery, and a right internal carotid artery arteriogram was performed. The Navien was advanced over the Sim 2 selector, and the Sim 2 selector was removed. Next, a 4 x 7 mm Hyperfine balloon was advanced into the distal right internal carotid artery. The patient was asked to put her hands up in the air, and the balloon was inflated to generate an occlusion. The balloon was then deflated a minute later. The balloon was removed. A postprocedural right internal carotid artery arteriogram was performed. The catheter system was removed. A right femoral artery arteriogram was performed through the sheath. The sheath was removed and hemostasis obtained with a 6-Afghan Celt device. FINDINGS: The left common carotid artery arteriogram demonstrated antegrade filling of the common, internal, and external carotid arteries. There was no carotid stenosis. The left internal carotid artery arteriogram demonstrated antegrade filling of the anterior and middle cerebral arteries with a scant opacification across the anterior communicating artery. The capillary and venous phases were otherwise unremarkable. There is clearly a displacement of the anterior cerebral artery vessels secondary to the mass of the aneurysm. The right common carotid artery arteriogram demonstrated antegrade filling of the common, internal, and external carotid arteries. There was no carotid stenosis. The right external carotid artery arteriogram demonstrated antegrade filling of the extracranial circulation. The capillary and venous phases were unremarkable. There was no evidence of aneurysm or AVM. The right internal carotid artery arteriogram demonstrates antegrade filling of the middle cerebral artery only. There is persistent opacification of the aneurysm. The pipeline flow diversion stent is widely patent. The balloon test occlusion was performed as described above. Within a minute of inflating the balloon and creating an occlusion, her left arm involuntarily came down to her chest. This was defined as she could not tolerate the balloon being inflated and occluding the right ICA. The postprocedural right internal carotid artery arteriogram demonstrated antegrade filling of the middle cerebral artery. There was no evidence of acute thrombosis or embolism. The right femoral artery arteriogram demonstrated antegrade filling of the common femoral artery with puncture site above the level of bifurcation. COMPLICATIONS: None. DISPOSITION: Stable to recovery. IMPRESSION: 1. Persistent opacification of the aneurysm through the pipeline flow diversion stent, which was widely patent. 2. Could not tolerate balloon test occlusion clinically. Dictated By: Ji Villa MD, PHD Ji Villa MD, PHD ATTENDING MALIKA/MedQ JOB: [id number] DOC: [id number] [facility] 10-17-2023 Nurse Note AVS and prescriptions reviewed with Ileana Leone. All questions answered and IV removed without difficulty. Ileana Leone confirms that they have all belongings. Pt escorted downstairs with daughter to go home. [facility] 10-17-2023 Miscellaneous Notes AVS and prescriptions reviewed with Ileana Leone. All questions answered and IV removed without difficulty. Ileana Leone confirms that they have all belongings. Pt escorted downstairs with daughter to go home. This patient was appropriately risk stratified for observation level of care and placed on an observation protocol in our Clinical Decision Unit. The patient's intensity of service and severity of illness was appropriately aligned with observation level of care. Medical Decision Making Amount and/or Complexity of Data Reviewed Labs: ordered. Radiology: ordered. Risk OTC drugs. Prescription drug management. PMHx of R ICA aneurysm s/p embolization (05/2023), Atrial fibrillation (on Eliquis). Presents with 2 weeks of progressively worsening vision. CT with concerns for interval increase of the partially thrombosed portion of the aneurysm projecting medially from the coil mass with areas of hyperdensity peripherally and superiorly compared to the preoperative CTA, concerning for persistent aneurysm filling. Residual avidly contrast opacified portion of the aneurysm projecting inferiorly from the coil mass appears similar in size to the preoperative CTA. Ophthalmology consulted, recommended MRI brain and orbits. MRIs with concerns for interval increase of the partially thrombosed giant aneurysmal sac. This enlargement of the aneurysmal sac now results in more significant deviation of the optic apparatus. 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 Neurosurgery consulted and recommends no surgical intervention and to discharge the patient on Dexamethasone 2 mg BID and Protonix 40 mg daily. Prescriptions sent. 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 VS stable. Instructions for immediate return discussed with patient. Results for orders placed or performed during the hospital encounter of 10/16/23 RHEUMATOID FACTOR Result Value Ref Range Rheumatoid Factor <10 <=14 IU/mL ANGIOTENSIN CONVERTING ENZYME Result Value Ref Range Angiotensin Converting Enzyme 57 19 - 123 U/L [facility] 7 - ED Result Value Ref Range Sodium 137 135 - 145 mmol/L Potassium 4.1 3.5 - 5.0 mmol/L Chloride 103 98 - 108 mmol/L CO2 25 21 - 31 mmol/L Glucose 105 (H) 70 - 99 mg/dL BUN 11 7 - 25 mg/dL Creatinine 0.71 0.50 - 1.20 mg/dL Bun/Crea Ratio 15 Osmolality (Calculated) 287 278 - 305 mOsm/kg Anion Gap 13 7 - 17 mmol/L eGFR, CKD-EPI, Female >90 >=60 mL/min/1.73m2 CBC AND ELECTRONIC DIFF Result Value Ref Range WBC Count 6.08 3.99 - 11.19 K/uL RBC Count 5.57 (H) 3.91 - 5.04 M/uL Hemoglobin 16.2 (H) 11.4 - 15.2 g/dL Hematocrit 47.9 (H) 34.9 - 44.3 % Mean Cell Volume 86.0 79.6 - 97.7 fL Mean Cell Hgb 29.1 25.9 - 33.9 pg Mean Cell Hgb Conc 33.8 31.4 - 35.9 g/dL RBC Distribution 13.2 10.8 - 14.9 % Platelet Count 227 150 - 393 K/uL Mean Platelet Volume 9.9 8.5 - 12.2 fL DIFF STATUS Electronic Differential Segs + Bands Auto 57.9 % Immature Grans % 0.3 % Lymphocyte % Auto 31.6 % Monocyte % Auto 6.9 % Eosinophil % Auto 2.6 % Basophil % Auto 0.7 % Nucleated RBC 0.0 <=0.2 /100 WBC Segs + Bands,Absolute Auto 3.52 1.64 - 7.28 K/uL Immature Grans Absolute <0.04 <=0.08 K/uL Abs Lymph Auto 1.92 1.16 - 3.51 K/uL Abs Highland Auto 0.42 0.22 - 0.87 K/uL Abs Eos Auto 0.16 0.00 - 0.42 K/uL Abs Baso Auto 0.04 0.00 - 0.15 K/uL SYPHILIS AB W/REFLEX RPR Result Value Ref Range Syphilis IgG/IGM Total Non Reactive Non Reactive MRI ORBITS WITH AND WITHOUT CONTRAST Final Result IMPRESSION: -No acute infarction. -Interval increase in size of the partially thrombosed giant aneurysmal sac as described above. This enlargement of the aneurysmal sac now results in more significant deviation of the optic apparatus. This may be potential cause of patient's visual disturbance. Clinical correlation is requested. BRAIN WITH AND WITHOUT CONTRAST Final Result IMPRESSION: -No acute infarction. -Interval increase in size of the partially thrombosed giant aneurysmal sac as described above. This enlargement of the aneurysmal sac now results in more significant deviation of the optic apparatus. This may be potential cause of patient's visual disturbance. Clinical correlation is requested. ANGIO BRAIN/NECK Final Result IMPRESSION: 1. 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 2. Interval increase in size of the partially thrombosed portion of the aneurysm projecting medially from the coil mass with areas of hyperdensity peripherally and superiorly compared to the preoperative CTA, concerning for persistent aneurysm filling. Residual avidly contrast opacified portion of the aneurysm projecting inferiorly from the coil mass appears similar in size to the preoperative CTA. 3. No significant stenosis of the carotid or vertebral arteries in the neck. Disposition: Discharge The patient has met appropriate clinical criteria to be discharged from this CDU observation protocol. Reasons to return to the ED were discussed with the patient. The patient will be instructed to follow up with their primary care physician or specialist; if the patient does not have a physician to see in follow up, our CDU clinical rifle case repairer will assist the patient with their follow up needs. Clinical Impression: 1. Visual disturbance 2. Nonruptured cerebral aneurysm, internal carotid artery, intracranial portion 3. Acute nonintractable headache, unspecified headache type I saw and evaluated the patient with the CDU attending Dr. Marie. Neurosurgery Update: Consulted for increase size of aneurysm, headache, blurry vision. CTA with interval increase in size of the partially thrombosed portion of the aneurysm projecting medially from the coil mass with areas of hyperdensity peripherally and superiorly compared to the preoperative CTA . No neurosurgical intervention at this time. Please discharge the patient on Dexamethasone 2 mg bid. Please ensure patient is taking PPI to avoid stress ulceration secondary to steroids. Patient will be evaluated with balloon test occlusion in the outpatient setting. Neurosurgery schedulers are currently coordinating. - Patient is ok to discharge. NSGY is scheduling and will reach out to the patient. - Neurosurgery will sign-off. Please call with questions. Home Ramirez MD, Neurosurgery NS2 ([phone]) DEPARTMENT OF EMERGENCY MEDICINE CHIEF COMPLAINT Chief Complaint Patient presents with Eye Problem HISTORY OF PRESENT ILLNESS Ileana Leone is a 67 y.o. female was appropriately risk stratified for observation level of care and was placed on the [facility] General Observation Protocol protocol. Patient presented to the emergency department for progressive vision loss over the last year. Patient with history of a brain aneurysm status post coil in 2022. Patient denies headache, eye pain, fever, falls or injury, dizziness. Denies any numbness, weakness. Was evaluated at an outside hospital NSAID to [facility] for Neuro-Ophthalmology evaluation. Patient did have a CTA brain at the outside hospital. Placed in observation for continued monitoring, MRI, labs. REVIEW OF SYSTEMS Review of Systems Constitutional: Negative for chills and fever. HENT: Negative for congestion, hearing loss and sore throat. Eyes: Positive for blurred vision. Respiratory: Negative for cough and shortness of breath. Cardiovascular: Negative for chest pain, palpitations and leg swelling. Gastrointestinal: Negative for diarrhea, nausea and vomiting. Genitourinary: Negative for dysuria, frequency and urgency. Musculoskeletal: Negative for myalgias. Skin: Negative for rash. Neurological: Negative for dizziness, sensory change, speech change, weakness and headaches. Psychiatric/Behavioral: Negative. PAST MEDICAL HISTORY No past medical history on file. 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 Right 05/30/2023 Laterality: Right; Surgeon: Ji Villa MD, PhD; Location: [facility] MAIN OR MEDICATIONS GIVEN IN THE ED Medications Acetaminophen (TYLENOL) tablet 650 mg (has no administration in time range) Metoprolol succinate (TOPROL-XL) tablet XL 25 mg (has no administration in time range) Flecainide (TAMBOCOR) tablet 50 mg (has no administration in time range) apixaban (ELIQUIS) tablet 5 mg (has no administration in time range) Pravastatin (PRAVACHOL) tablet 20 mg (has no administration in time range) Latanoprost (XALATAN) 0.005 % ophthalmic solution 1 drop (has no administration in time range) Timolol maleate (TIMOPTIC) 0.5 % ophthalmic solution 1 drop (has no administration in time range) ALLERGIES Allergies Allergen Reactions Lisinopril Cough Silver Sulfadiazine FAMILY HISTORY History reviewed. No pertinent family history. SOCIAL HISTORY Social History Socioeconomic History Marital status: Spouse name: Not on file Number of children: Not on file Years of education: Not on file Highest education level: Not on file Occupational History Not on file Tobacco Use Smoking status: Former Types: Cigarettes Smokeless tobacco: Never Vaping Use Vaping status: Never Used Substance and Sexual Activity Alcohol use: Not Currently Drug use: Never Sexual activity: Yes Other Topics Concern Service No Blood Transfusions No Caffeine Concern No Occupational Exposure No Hobby Hazards No Sleep Concern No Stress Concern No Weight Concern No Special Diet No Back Care No Exercise No Bike Helmet No Seat Belt No Domestic Violence No Social History Narrative Not on file Social Determinants of Health Financial Resource Strain: Low Risk (05/30/2023) Overall Financial Resource Strain (CARDIA) Difficulty of Paying Living Expenses: Not hard at all Food Insecurity: No Food Insecurity (05/30/2023) Hunger Vital Sign Worried About Running Out of Food in the Last Year: Never true Ran Out of Food in the Last Year: Never true Transportation Needs: No Transportation Needs (05/30/2023) PRAPARE - Transportation Lack of Transportation (Medical): No Lack of Transportation (Non-Medical): No Physical Activity: Not on file Stress: Not on file Social Connections: Not on file Intimate Partner Violence: Not At Risk (05/30/2023) Humiliation, Afraid, Rape, and Kick questionnaire Fear of Current or Ex-Partner: No Emotionally Abused: No Physically Abused: No Sexually Abused: No Housing Stability: Low Risk (05/30/2023) Housing Stability Vital Sign Unable to Pay for Housing in the Last Year: No Number of Places Lived in the Last Year: 1 Unstable Housing in the Last Year: No Recent Concern: Housing Stability - High Risk (05/30/2023) Housing Stability Vital Sign Unable to Pay for Housing in the Last Year: Yes Number of Places Lived in the Last Year: 1 Unstable Housing in the Last Year: No PHYSICAL EXAM BP 182/77 Pulse 56 Temp 97.1 F (36.2 C) (Oral) Resp 16 Ht 1.651 m (5' 5) SpO2 96% BMI 33.38 kg/m Smoking Status Former Physical Exam Vitals and nursing note reviewed. Constitutional: Appearance: Normal appearance. She is not ill-appearing. HENT: Head: Atraumatic. Eyes: Comments: Eyes dilated, exam per ophtho Cardiovascular: Rate and Rhythm: Normal rate. Pulmonary: Effort: Pulmonary effort is normal. Breath sounds: Normal breath sounds. Musculoskeletal: General: Normal range of motion. Cervical back: Normal range of motion. Skin: General: Skin is warm and dry. Neurological: General: No focal deficit present. Mental Status: She is alert and oriented to person, place, and time. Psychiatric: Mood and Affect: Mood normal. Behavior: Behavior normal. EDOU COURSE & MEDICAL DECISION MAKING Risk stratification appropriate for observation level of care.? Patient was placed in EDOU on the General Observation Protocol protocol. Patient age greater than 64y/o? YES Geriatrics Screening: Delirium Triage Screen: Exclusion Criteria: Non-zero scores are abnormal. The above score does not represent acute delirium based on my assessment. Stage Balance Assessment Score: Exclusion Criteria: Non-zero scores are abnormal. The patient does need urgent physical and occupational therapy consultation or referral for fall risk assessment based on the above score and my assessment. ISAR Score: Exclusion Criteria: Scores of 2 or higher should prompt consideration of case management consultation. The patient does not need case management based on my assessment. The patient does not Geriatrics consultation or outpatient referral based on the above screening and my assessment. DDx includes: mass, morales, glaucoma, ophthalmic nerve compression I reviewed the patients' medical records and nursing notes and noted their allergies, past medical history, and previous visits. The reviewed showed Results for orders placed or performed during the hospital encounter of 10/16/23 CBC AND ELECTRONIC DIFF Result Value Ref Range WBC Count 6.08 3.99 - 11.19 K/uL RBC Count 5.57 (H) 3.91 - 5.04 M/uL Hemoglobin 16.2 (H) 11.4 - 15.2 g/dL Hematocrit 47.9 (H) 34.9 - 44.3 % Mean Cell Volume 86.0 79.6 - 97.7 fL Mean Cell Hgb 29.1 25.9 - 33.9 pg Mean Cell Hgb Conc 33.8 31.4 - 35.9 g/dL RBC Distribution 13.2 10.8 - 14.9 % Platelet Count 227 150 - 393 K/uL Mean Platelet Volume 9.9 8.5 - 12.2 fL DIFF STATUS Electronic Differential Segs + Bands Auto 57.9 % Immature Grans % 0.3 % Lymphocyte % Auto 31.6 % Monocyte % Auto 6.9 % Eosinophil % Auto 2.6 % Basophil % Auto 0.7 % Nucleated RBC 0.0 <=0.2 /100 WBC Segs + Bands,Absolute Auto 3.52 1.64 - 7.28 K/uL Immature Grans Absolute <0.04 <=0.08 K/uL Abs Lymph Auto 1.92 1.16 - 3.51 K/uL Abs Highland Auto 0.42 0.22 - 0.87 K/uL Abs Eos Auto 0.16 0.00 - 0.42 K/uL Abs Baso Auto 0.04 0.00 - 0.15 K/uL MRI BRAIN WITH AND WITHOUT CONTRAST (Results Pending) MRI ORBITS WITH AND WITHOUT CONTRAST (Results Pending) ? The patient received the following interventions in the ED to date: na On reassessment the patient's response to the interventions was na While in the EDOU we will continue to check, monitor and reassess patient and alter our plan as clinically appropriate. Plan: ? MRI brain, MRI orbits, optho I have discussed this plan of care with the ED team. . This is a non-shared visit on 10/16/2023. Electronically signed by: SEAN Fernandez, 10/16/2023 4:51 PM documented in this encounter [facility] 10-17-2023 Progress note Formatting of t his note is different from the original. This patient was appropriately risk stratified for observation level of care and placed on an observation protocol in our Clinical Decision Unit. The patient's intensity of service and severity of illness was appropriately aligned with observation level of care. Medical Decision Making Amount and/or Complexity of Data Reviewed Labs: ordered. Radiology: ordered. Risk OTC drugs. Prescription drug management. PMHx of R ICA aneurysm s/p embolization (05/2023), Atrial fibrillation (on Eliquis). Presents with 2 weeks of progressively worsening vision. CT with concerns for interval increase of the partially thrombosed portion of the aneurysm projecting medially from the coil mass with areas of hyperdensity peripherally and superiorly compared to the preoperative CTA, concerning for persistent aneurysm filling. Residual avidly contrast opacified portion of the aneurysm projecting inferiorly from the coil mass appears similar in size to the preoperative CTA. Ophthalmology consulted, recommended MRI brain and orbits. MRIs with concerns for interval increase of the partially thrombosed giant aneurysmal sac. This enlargement of the aneurysmal sac now results in more significant deviation of the optic apparatus. 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 Neurosurgery consulted and recommends no surgical intervention and to discharge the patient on Dexamethasone 2 mg BID and Protonix 40 mg daily. Prescriptions sent. 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 VS stable. Instructions for immediate return discussed with patient. Results for orders placed or performed during the hospital encounter of 10/16/23 RHEUMATOID FACTOR Result Value Ref Range Rheumatoid Factor <10 <=14 IU/mL ANGIOTENSIN CONVERTING ENZYME Result Value Ref Range Angiotensin Converting Enzyme 57 19 - 123 U/L [facility] 7 - ED Result Value Ref Range Sodium 137 135 - 145 mmol/L Potassium 4.1 3.5 - 5.0 mmol/L Chloride 103 98 - 108 mmol/L CO2 25 21 - 31 mmol/L Glucose 105 (H) 70 - 99 mg/dL BUN 11 7 - 25 mg/dL Creatinine 0.71 0.50 - 1.20 mg/dL Bun/Crea Ratio 15 Osmolality (Calculated) 287 278 - 305 mOsm/kg Anion Gap 13 7 - 17 mmol/L eGFR, CKD-EPI, Female >90 >=60 mL/min/1.73m2 CBC AND ELECTRONIC DIFF Result Value Ref Range WBC Count 6.08 3.99 - 11.19 K/uL RBC Count 5.57 (H) 3.91 - 5.04 M/uL Hemoglobin 16.2 (H) 11.4 - 15.2 g/dL Hematocrit 47.9 (H) 34.9 - 44.3 % Mean Cell Volume 86.0 79.6 - 97.7 fL Mean Cell Hgb 29.1 25.9 - 33.9 pg Mean Cell Hgb Conc 33.8 31.4 - 35.9 g/dL RBC Distribution 13.2 10.8 - 14.9 % Platelet Count 227 150 - 393 K/uL Mean Platelet Volume 9.9 8.5 - 12.2 fL DIFF STATUS Electronic Differential Segs + Bands Auto 57.9 % Immature Grans % 0.3 % Lymphocyte % Auto 31.6 % Monocyte % Auto 6.9 % Eosinophil % Auto 2.6 % Basophil % Auto 0.7 % Nucleated RBC 0.0 <=0.2 /100 WBC Segs + Bands,Absolute Auto 3.52 1.64 - 7.28 K/uL Immature Grans Absolute <0.04 <=0.08 K/uL Abs Lymph Auto 1.92 1.16 - 3.51 K/uL Abs Highland Auto 0.42 0.22 - 0.87 K/uL Abs Eos Auto 0.16 0.00 - 0.42 K/uL Abs Baso Auto 0.04 0.00 - 0.15 K/uL SYPHILIS AB W/REFLEX RPR Result Value Ref Range Syphilis IgG/IGM Total Non Reactive Non Reactive MRI ORBITS WITH AND WITHOUT CONTRAST Final Result IMPRESSION: -No acute infarction. -Interval increase in size of the partially thrombosed giant aneurysmal sac as described above. This enlargement of the aneurysmal sac now results in more significant deviation of the optic apparatus. This may be potential cause of patient's visual disturbance. Clinical correlation is requested. BRAIN WITH AND WITHOUT CONTRAST Final Result IMPRESSION: -No acute infarction. -Interval increase in size of the partially thrombosed giant aneurysmal sac as described above. This enlargement of the aneurysmal sac now results in more significant deviation of the optic apparatus. This may be potential cause of patient's visual disturbance. Clinical correlation is requested. ANGIO BRAIN/NECK Final Result IMPRESSION: 1. 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 2. Interval increase in size of the partially thrombosed portion of the aneurysm projecting medially from the coil mass with areas of hyperdensity peripherally and superiorly compared to the preoperative CTA, concerning for persistent aneurysm filling. Residual avidly contrast opacified portion of the aneurysm projecting inferiorly from the coil mass appears similar in size to the preoperative CTA. 3. No significant stenosis of the carotid or vertebral arteries in the neck. Disposition: Discharge The patient has met appropriate clinical criteria to be discharged from this CDU observation protocol. Reasons to return to the ED were discussed with the patient. The patient will be instructed to follow up with their primary care physician or specialist; if the patient does not have a physician to see in follow up, our CDU clinical rifle case repairer will assist the patient with their follow up needs. Clinical Impression: 1. Visual disturbance 2. Nonruptured cerebral aneurysm, internal carotid artery, intracranial portion 3. Acute nonintractable headache, unspecified headache type I saw and evaluated the patient with the CDU attending Dr. Marie. [facility] 10-17-2023 Hospital Discharge instructions SEAN Weaver - 10/17/2023 5:03 PM EDT - Your MRI brain and orbits showed an interval increase in size of the partially thrombosed giant aneurysmal sac. This enlargement results in more significant deviation of the optic apparatus. - Neurosurgery evaluated you and recommends no neurosurgical intervention at this time. - Neurosurgery recommend to take Dexamethasone 2 mg twice a day and Protonix daily. Prescription sent to your pharmacy. - Neurosurgery schedulers are currently coordinating your follow up procedures and appointments. You will receive a phone call from Neurosurgery (Dr. Villa's office) on Thursday with next steps. - Come back to the Emergency Department if you develop any new or worsening symptoms including but not limited to worsening vision, worsening headache, numbness/ tingling/ weakness of upper or lower extremities bilaterally, slurred speech or dizziness. CLINICAL HYDROELECTRIC COMPONENT MACHINIST If you need any further assistance with scheduling follow up care, please call the Clinical Equipment Driver at . Results for orders placed or performed during the hospital encounter of 10/16/23 RHEUMATOID FACTOR Result Value Ref Range Rheumatoid Factor <10 <=14 IU/mL ANGIOTENSIN CONVERTING ENZYME Result Value Ref Range Angiotensin Converting Enzyme 57 19 - 123 U/L [facility] 7 - ED Result Value Ref Range Sodium 137 135 - 145 mmol/L Potassium 4.1 3.5 - 5.0 mmol/L Chloride 103 98 - 108 mmol/L CO2 25 21 - 31 mmol/L Glucose 105 (H) 70 - 99 mg/dL BUN 11 7 - 25 mg/dL Creatinine 0.71 0.50 - 1.20 mg/dL Bun/Crea Ratio 15 Osmolality (Calculated) 287 278 - 305 mOsm/kg Anion Gap 13 7 - 17 mmol/L eGFR, CKD-EPI, Female >90 >=60 mL/min/1.73m2 CBC AND ELECTRONIC DIFF Result Value Ref Range WBC Count 6.08 3.99 - 11.19 K/uL RBC Count 5.57 (H) 3.91 - 5.04 M/uL Hemoglobin 16.2 (H) 11.4 - 15.2 g/dL Hematocrit 47.9 (H) 34.9 - 44.3 % Mean Cell Volume 86.0 79.6 - 97.7 fL Mean Cell Hgb 29.1 25.9 - 33.9 pg Mean Cell Hgb Conc 33.8 31.4 - 35.9 g/dL RBC Distribution 13.2 10.8 - 14.9 % Platelet Count 227 150 - 393 K/uL Mean Platelet Volume 9.9 8.5 - 12.2 fL DIFF STATUS Electronic Differential Segs + Bands Auto 57.9 % Immature Grans % 0.3 % Lymphocyte % Auto 31.6 % Monocyte % Auto 6.9 % Eosinophil % Auto 2.6 % Basophil % Auto 0.7 % Nucleated RBC 0.0 <=0.2 /100 WBC Segs + Bands,Absolute Auto 3.52 1.64 - 7.28 K/uL Immature Grans Absolute <0.04 <=0.08 K/uL Abs Lymph Auto 1.92 1.16 - 3.51 K/uL Abs Highland Auto 0.42 0.22 - 0.87 K/uL Abs Eos Auto 0.16 0.00 - 0.42 K/uL Abs Baso Auto 0.04 0.00 - 0.15 K/uL SYPHILIS AB W/REFLEX RPR Result Value Ref Range Syphilis IgG/IGM Total Non Reactive Non Reactive MRI ORBITS WITH AND WITHOUT CONTRAST Final Result IMPRESSION: -No acute infarction. -Interval increase in size of the partially thrombosed giant aneurysmal sac as described above. This enlargement of the aneurysmal sac now results in more significant deviation of the optic apparatus. This may be potential cause of patient's visual disturbance. Clinical correlation is requested. BRAIN WITH AND WITHOUT CONTRAST Final Result IMPRESSION: -No acute infarction. -Interval increase in size of the partially thrombosed giant aneurysmal sac as described above. This enlargement of the aneurysmal sac now results in more significant deviation of the optic apparatus. This may be potential cause of patient's visual disturbance. Clinical correlation is requested. ANGIO BRAIN/NECK Final Result IMPRESSION: 1. 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 2. Interval increase in size of the partially thrombosed portion of the aneurysm projecting medially from the coil mass with areas of hyperdensity peripherally and superiorly compared to the preoperative CTA, concerning for persistent aneurysm filling. Residual avidly contrast opacified portion of the aneurysm projecting inferiorly from the coil mass appears similar in size to the preoperative CTA. 3. No significant stenosis of the carotid or vertebral arteries in the neck. The following attachments cannot be sent through Care Everywhere.Cerebral Aneurysm ([facility]) (Amharic)documented in this encounter [facility] 10-17-2023 Plan of care note Neurosurgery Update: Consulted for increase size of aneurysm, headache, blurry vision. CTA with interval increase in size of the partially thrombosed portion of the aneurysm projecting medially from the coil mass with areas of hyperdensity peripherally and superiorly compared to the preoperative CTA . No neurosurgical intervention at this time. Please discharge the patient on Dexamethasone 2 mg bid. Please ensure patient is taking PPI to avoid stress ulceration secondary to steroids. Patient will be evaluated with balloon test occlusion in the outpatient setting. Neurosurgery schedulers are currently coordinating. - Patient is ok to discharge. NSGY is scheduling and will reach out to the patient. - Neurosurgery will sign-off. Please call with questions. Home Ramirez MD, Neurosurgery NS2 ([phone]) [facility] Work Phone: 10-17-2023 Emergency department Note ED CM Observation Note After review of chart and discussion with CDU team in morning rounds, patient's discharge plan is pending MRI brain and orbits, CT brain and neck. Should discharge needs arise please contact administrative receptionist. Pat Richards RN, BSN, ACM Clinical Equipment Driver [facility] Available via secure chat. [facility] 10-17-2023 Emergency department Note ED CM Observation Note After review of chart and discussion with CDU team in morning rounds, patient's discharge plan is pending MRI brain and orbits, CT brain and neck. Should discharge needs arise please contact administrative receptionist. Pat Richards RN, BSN, ACM Clinical Equipment Driver [facility] Available via secure chat. EMERGENCY DEPARTMENT - OBSERVATION UNIT NOTE This patient was appropriately risk stratified for observation level of care and placed on an observation protocol in our ED Observation Unit. The patient's intensity of service and severity of illness is appropriately aligned with observation level of care. Please see the history and physical examination by the ED Observation Unit advanced practice provider for this patient. Medical Decision Makin y.o. female hx R ICA aneurysm s/p embolization (05/2023), pAF (Eliquis) who presented to the ED with 2 weeks of progressively worsening vision and was placed in observation for evaluation by neurosurgery given abnormal MRI finding. ED workup was notable for interval increase in size of aneurysm on CTA. Observation workup has been notable for confirmed increased size of aneurysm on MRI and persistent vision change. Extensive discussions between the patient and neurosurgery resident/neurosurgery chief resident. At time of writing, we are awaiting the neurosurgery attending to provide formal recommendation regarding management and disposition of this patient. Medical Decision Making Problems Addressed: Visual disturbance: acute illness or injury that poses a threat to life or bodily functions Details: Emergency department and observation evaluation includes life-threatening differential diagnoses listed above. Amount and/or Complexity of Data Reviewed External Data Reviewed: notes. Labs: ordered. Radiology: ordered. Discussion of management or test interpretation with external provider(s): I was present for BIOPROCESSING MANUFACTURING TECHNICIAN discussions with the neurosurgery resident & chief resident Risk OTC drugs. Prescription drug management. Clinical Summary: The patient's medications and orders were reviewed. All labs, imaging, and diagnostic studies in the medical record were reviewed. - This morning, the pt states her symptoms are largely unchanged Physical Examination: The patient's vital signs were reviewed and were as follows: BP 131/61 (BP Location: Left arm, BP Position: Lying) Pulse 55 Temp 98.2 F (36.8 C) (Oral) Resp 17 Ht 1.651 m (5' 5) Wt 91.8 kg (202 lb 6.4 oz) SpO2 95% BMI 33.68 kg/m Smoking Status Former Physical Exam Vitals reviewed. Constitutional: General: She is not in acute distress. Comments: Sitting upright in bed, awake, pleasant Eyes: Extraocular Movements: Extraocular movements intact. Cardiovascular: Rate and Rhythm: Normal rate and regular rhythm. Pulmonary: Effort: Pulmonary effort is normal. Breath sounds: Normal breath sounds. Comments: Speaking in full sentences on room air. Skin: General: Skin is warm and dry. Neurological: Mental Status: She is alert. Comments: Awake, oriented. No facial droop. Speech not dysarthric. 5/5 UE flexion, extension, delivery representative b/l. 5/5 dorsiflexion, plantarflexion b/l. Sensation intact to light touch in the b/l UE, LE. Disposition: Pending neurosurgery attending recommendations The patient has NOT met appropriate clinical criteria to be discharged from this CDU observation protocol. As such, the patient has failed to be discharged from observation level of care and may require inpatient admission to provide sufficient stabilization and resources to ensure safe disposition, pending additional recommendations as above. Clinical Impression: 1) Vision Change 2) R ICA Aneurysm - interval increase I saw and evaluated the patient with FRANK. I provided a substantive portion of the care for this patient. I personally performed all aspects of the medical decision making for this encounter. I have reviewed and verified this with the FRANK so that it accurately reflects our care. Jack Marie MD 10/17/23 4:19 PM Jack Marie MD 10/17/23 1619 ED Sign Out Note Ileana Leone is a 67 y.o. female SO: R ICA aneurysm hx s/p coils placed 05/2023, blurry vision , was sent here for neuro optho eval, dispo pending optho Vitals: 10/16/23 1223 BP: 182/77 Pulse: 56 Resp: 16 Temp: 97.1 degrees F (36.2 degrees C) TempSrc: Oral SpO2: 96% Height: 1.651 m (5' 5) Update ED Course as of 10/16/23 1548 ThuOctober 16, 2023 1504 SO: R ICA aneurysm hx s/p coils placed 05/2023, blurry vision , was sent here for neuro optho eval, dispo pending optho 1524 Spoke with Optho Would get MRI brain and orbits both with and without contrast. Would get CTA head and neck. Labs would get MOG, NMO, RF, JOSH, ANCA, JUJU, Lysozyme, TB, Syphilis, Lyme. 1535 Plan for admission to OBS for further work up. She had CTA head at O[facility]. Trying to get images pushed over, if not able to in a few hours, will re order CT scanning here 1542 Plan for optho follow up after MRI. If MRI work up with acute findings then patient will likely need admission for further work up, if MRI findings negative, patient could be discharge. Impression: blurry vision Dispo: pending work up Patient Ileana Leone [id number] to be placed in observation unit for MRI and lab work. 1.Patient is agreeable to being placed in the EDOU Yes 2.Results of pertinent labs: n/a 3.Results of pertinent Imaging: n/a EDOU Problem List: 1. Blurry vision : Plan of care: CT scans, MRI, lab work, dispo pending optho recs after work up, admission vs discharge pending findings Domingo Delgado MD Resident 10/16/23 1545 dEPARTMENT of Emergency Medicine CHIEF COMPLAINT Eye Problem HPI Ileana Leone is a 67 y.o. female with past medical history of known right ICA aneurysm status post coiling in May of 2023 who presents blurred vision. Per patient, she has had persistent blurry vision over last year that has been worsening over last couple weeks. Patient has been attempting to follow up with Neuro-Ophthalmology for progressive vision loss however has been unsuccessful in obtaining appointment so presented to the ER today due to worsening visual loss. Denies headaches, changes in vision with positioning, and exacerbating or alleviating factors. REVIEW OF SYSTEMS Review of Systems Constitutional: Negative for chills and fever. HENT: Negative for congestion, rhinorrhea and sore throat. Eyes: Positive for visual disturbance. Negative for pain. Respiratory: Negative for cough and shortness of breath. Cardiovascular: Negative for chest pain and palpitations. Gastrointestinal: Negative for abdominal pain, diarrhea, nausea and vomiting. Genitourinary: Negative for dysuria and urgency. Musculoskeletal: Negative for back pain and neck pain. Skin: Negative for pallor and wound. Neurological: Negative for dizziness, weakness and headaches. Psychiatric/Behavioral: Negative for confusion. The patient is not nervous/anxious. PAST MEDICAL HISTORY No past medical history on file. 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 Current Outpatient Medications Medication Sig Dispense Refill Acetaminophen 325 MG tablet Take 2 tablets by mouth every 4 hours as needed for Mild Pain or Other (Oral temp > 99.5 F). 0 brimonidine 0.15 % Solution ophthalmic solution 1 drop 3 times daily. Use in affected eye(s). calcium acetate - Phos Binder 667 MG capsule Take 1 capsule by mouth 3 times daily with meals. Eliquis 5 MG tablet Take by mouth every 12 hours. Flecainide 50 MG tablet Take 1 tablet by mouth 2 times daily. Latanoprost 0.005 % Solution ophthalmic solution 1 drop At bedtime. Metoprolol succinate 50 MG tablet XL Take 1 tablet by mouth. Multivitamin w/ minerals tablet Take 1 tablet by mouth daily. Probiotic Product (PROBIOTIC 10 ULTRA STRENGTH PO) Take by mouth. simvastatin 10 MG tablet Take 1 tablet by mouth every evening at 6 PM. ticagrelor 90 MG tablet Take 1 tablet by mouth every 12 hours. 60 tablet 1 ALLERGIES Allergies Allergen Reactions Lisinopril Cough Silver Sulfadiazine FAMILY HISTORY History reviewed. No pertinent family history. SOCIAL HISTORY Social History Socioeconomic History Marital status: Spouse name: Not on file Number of children: Not on file Years of education: Not on file Highest education level: Not on file Occupational History Not on file Tobacco Use Smoking status: Former Types: Cigarettes Smokeless tobacco: Never Vaping Use Vaping status: Never Used Substance and Sexual Activity Alcohol use: Not Currently Drug use: Never Sexual activity: Yes Other Topics Concern Service No Blood Transfusions No Caffeine Concern No Occupational Exposure No Hobby Hazards No Sleep Concern No Stress Concern No Weight Concern No Special Diet No Back Care No Exercise No Bike Helmet No Seat Belt No Domestic Violence No Social History Narrative Not on file Social Determinants of Health Financial Resource Strain: Low Risk (05/30/2023) Overall Financial Resource Strain (CARDIA) Difficulty of Paying Living Expenses: Not hard at all Food Insecurity: No Food Insecurity (05/30/2023) Hunger Vital Sign Worried About Running Out of Food in the Last Year: Never true Ran Out of Food in the Last Year: Never true Transportation Needs: No Transportation Needs (05/30/2023) PRAPARE - Transportation Lack of Transportation (Medical): No Lack of Transportation (Non-Medical): No Physical Activity: Not on file Stress: Not on file Social Connections: Not on file Intimate Partner Violence: Not At Risk (05/30/2023) Humiliation, Afraid, Rape, and Kick questionnaire Fear of Current or Ex-Partner: No Emotionally Abused: No Physically Abused: No Sexually Abused: No Housing Stability: Low Risk (05/30/2023) Housing Stability Vital Sign Unable to Pay for Housing in the Last Year: No Number of Places Lived in the Last Year: 1 Unstable Housing in the Last Year: No Recent Concern: Housing Stability - High Risk (05/30/2023) Housing Stability Vital Sign Unable to Pay for Housing in the Last Year: Yes Number of Places Lived in the Last Year: 1 Unstable Housing in the Last Year: No PHYSICAL EXAM BP 182/77 Pulse 56 Temp 97.1 F (36.2 C) (Oral) Resp 16 Ht 1.651 m (5' 5) SpO2 96% BMI 33.38 kg/m Smoking Status Former Physical Exam Vitals and nursing note reviewed. Constitutional: General: She is not in acute distress. HENT: Head: Normocephalic and atraumatic. Right Ear: External ear normal. Left Ear: External ear normal. Nose: Nose normal. No congestion. Mouth/Throat: Mouth: Mucous membranes are moist. Pharynx: Oropharynx is clear. Eyes: Extraocular Movements: Extraocular movements intact. Conjunctiva/sclera: Conjunctivae normal. Pupils: Pupils are equal, round, and reactive to light. Cardiovascular: Rate and Rhythm: Normal rate and regular rhythm. Heart sounds: Normal heart sounds. Pulmonary: Effort: Pulmonary effort is normal. Breath sounds: Normal breath sounds. Abdominal: General: Abdomen is flat. Bowel sounds are normal. Palpations: Abdomen is soft. Tenderness: There is no abdominal tenderness. There is no guarding. Musculoskeletal: General: No swelling or tenderness. Normal range of motion. Cervical back: Normal range of motion and neck supple. Skin: General: Skin is warm and dry. Capillary Refill: Capillary refill takes less than 2 seconds. Neurological: General: No focal deficit present. Mental Status: She is alert and oriented to person, place, and time. Cranial Nerves: No cranial nerve deficit. Sensory: No sensory deficit. Motor: No weakness. Psychiatric: Mood and Affect: Mood normal. Behavior: Behavior normal. ED COURSE & MEDICAL DECISION MAKING Medical Decision Making Patient presenting to the emergency department today for concern of progressive visual loss. Patient does have a known aneurysm of the right ICA with concern for compressive neuropathy in the setting of aneurysmal size. Physical exam otherwise unremarkable. Unable to assess visual acuity as patient is not able to read eye chart. Patient does see shapes and patient is with some blurred vision. No pain with extraocular movements and otherwise normal reactive vision. Ophthalmology consult was placed for neuro ophthalmological evaluation. Requested imaging from outside hospital 1 week ago to determine if changes in aneurysmal size. No need for acute neurosurgical evaluation at this time as I have no evidence of focal deficits concerning for rebleed. Disposition pending ophthalmology recommendations. Problems Addressed: Visual disturbance: acute illness or injury Amount and/or Complexity of Data Reviewed Independent Historian: spouse External Data Reviewed: labs and notes. Josette Georges MD Resident 10/16/23 7360 ED Attending Chief complaint: Chief Complaint Patient presents with Eye Problem Ileana Leone is a female 67 y.o. who presents with vision loss over the past year. Had brain aneurysm coiled earlier this year. Has been trying to see neuroophthalmology but unable to get in so she was sent in by her cheese cook. States all vision is darkened and cannot see screens. She tells me she had CTA done one week ago at [facility]. Reviewed prior CTA and this is a quite large aneurysm so compressive optic neuropathy makes sense. Reviewed PMH, PSH, social and family history as well as medical record. Pertinent positives and negatives included in HPI. ROS: Pertinent positives and negatives for 10 system ROS are included in HPI. All other review of systems were reviewed and are negative unless otherwise documented. Pertinent Physical Exam findings: BP 182/77 Pulse 56 Temp 97.1 F (36.2 C) (Oral) Resp 16 Ht 1.651 m (5' 5) SpO2 96% BMI 33.38 kg/m Smoking Status Former Gen: NAD, well appearing PERRLA EOMI no nystagmus CV: RRR, no murmur, 2+ pulses in all extremities Pulm: CTAB, breathing comfortably on RA GI: abdomen soft, non tender, non distended Neuro: AAOx4, no focal neurological deficits other than severely limited vision cannot read any on my eye chart Ileana Leone is a 67 y.o. 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 They warrant ophthalmolgoy evaluation for this. I do not see a way that the aneurysm would relate to this. Dispo pending ophtho eval. Impression:vision loss Disposition: pending ophtho On 10/16/2023 I saw and examined the patient. I discussed the history and examination with the resident and agree with the plan of care. I reviewed imaging and labs that were obtained No orders to display Medical Decision Making Vision loss chronic with severe exacerbation Risk Decision regarding hospitalization. Placido Mata MD 10/16/23 1340 Placido Mata MD 10/16/23 1346 Pt reports blurred vision started last summer. Dx with brain aneurysm. Pt had two coils placed in May. Vision keeps getting worse. Has eye doctor recently who instructed her to come to ER. Scheduled for angiogram. Pt has been attempting to schedule appointment with [facility] neuro-ophthalmology team. Since they haven't heard back her eye doctor instructed them to come to [facility] ER. documented in this encounter [facility] 10-17-2023 Physician Emergency department Note EMERGENCY DEPARTMENT - OBSERVATION UNIT NOTE This patient was appropriately risk stratified for observation level of care and placed on an observation protocol in our ED Observation Unit. The patient's intensity of service and severity of illness is appropriately aligned with observation level of care. Please see the history and physical examination by the ED Observation Unit advanced practice provider for this patient. Medical Decision Makin y.o. 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 ED workup was notable for interval increase in size of aneurysm on CTA. Observation workup has been notable for confirmed increased size of aneurysm on MRI and persistent vision change. Extensive discussions between the patient and neurosurgery resident/neurosurgery chief resident. At time of writing, we are awaiting the neurosurgery attending to provide formal recommendation regarding management and disposition of this patient. Medical Decision Making Problems Addressed: Visual disturbance: acute illness or injury that poses a threat to life or bodily functions Details: Emergency department and observation evaluation includes life-threatening differential diagnoses listed above. Amount and/or Complexity of Data Reviewed External Data Reviewed: notes. Labs: ordered. Radiology: ordered. Discussion of management or test interpretation with external provider(s): I was present for BIOPR[employer]ESSING [employer]UFACTURING TECHNICIAN discussions with the neurosurgery resident & chief resident Risk OTC drugs. Prescription drug management. Clinical Summary: The patient's medications and orders were reviewed. All labs, imaging, and diagnostic studies in the medical record were reviewed. - This morning, the pt states her symptoms are largely unchanged Physical Examination: The patient's vital signs were reviewed and were as follows: BP 131/61 (BP Location: Left arm, BP Position: Lying) Pulse 55 Temp 98.2 F (36.8 C) (Oral) Resp 17 Ht 1.651 m (5' 5) Wt 91.8 kg (202 lb 6.4 oz) SpO2 95% BMI 33.68 kg/m Smoking Status Former Physical Exam Vitals reviewed. Constitutional: General: She is not in acute distress. Comments: Sitting upright in bed, awake, pleasant Eyes: Extraocular Movements: Extraocular movements intact. Cardiovascular: Rate and Rhythm: Normal rate and regular rhythm. Pulmonary: Effort: Pulmonary effort is normal. Breath sounds: Normal breath sounds. Comments: Speaking in full sentences on room air. Skin: General: Skin is warm and dry. Neurological: Mental Status: She is alert. Comments: Awake, oriented. No facial droop. Speech not dysarthric. 5/5 UE flexion, extension, delivery representative b/l. 5/5 dorsiflexion, plantarflexion b/l. Sensation intact to light touch in the b/l UE, LE. Disposition: Pending neurosurgery attending recommendations The patient has NOT met appropriate clinical criteria to be discharged from this CDU observation protocol. As such, the patient has failed to be discharged from observation level of care and may require inpatient admission to provide sufficient stabilization and resources to ensure safe disposition, pending additional recommendations as above. Clinical Impression: 1) Vision Change 2) R ICA Aneurysm - interval increase I saw and evaluated the patient with FRANK. I provided a substantive portion of the care for this patient. I personally performed all aspects of the medical decision making for this encounter. I have reviewed and verified this with the FRANK so that it accurately reflects our care. Jack Marie MD 10/17/23 4:19 PM Jack Marie MD 10/17/23 0074 [facility] Work Phone: 10-16-2023 Progress note Formatting of t his note is different from the original. DEPARTMENT OF EMERGENCY MEDICINE CHIEF COMPLAINT Chief Complaint Patient presents with Eye Problem HISTORY OF PRESENT ILLNESS Ileana Leone is a 67 y.o. female was appropriately risk stratified for observation level of care and was placed on the [facility] General Observation Protocol protocol. Patient presented to the emergency department for progressive vision loss over the last year. Patient with history of a brain aneurysm status post coil in 2022. Patient denies headache, eye pain, fever, falls or injury, dizziness. Denies any numbness, weakness. Was evaluated at an outside hospital NSAID to [facility] for Neuro-Ophthalmology evaluation. Patient did have a CTA brain at the outside hospital. Placed in observation for continued monitoring, MRI, labs. REVIEW OF SYSTEMS Review of Systems Constitutional: Negative for chills and fever. HENT: Negative for congestion, hearing loss and sore throat. Eyes: Positive for blurred vision. Respiratory: Negative for cough and shortness of breath. Cardiovascular: Negative for chest pain, palpitations and leg swelling. Gastrointestinal: Negative for diarrhea, nausea and vomiting. Genitourinary: Negative for dysuria, frequency and urgency. Musculoskeletal: Negative for myalgias. Skin: Negative for rash. Neurological: Negative for dizziness, sensory change, speech change, weakness and headaches. Psychiatric/Behavioral: Negative. PAST MEDICAL HISTORY No past medical history on file. 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 PERMANENT Right 05/30/2023 Laterality: Right; Surgeon: Ji Villa MD, PhD; Location: [facility] MAIN OR MEDICATIONS GIVEN IN THE ED Medications Acetaminophen (TYLENOL) tablet 650 mg (has no administration in time range) Metoprolol succinate (TOPROL-XL) tablet XL 25 mg (has no administration in time range) Flecainide (TAMBOCOR) tablet 50 mg (has no administration in time range) apixaban (ELIQUIS) tablet 5 mg (has no administration in time range) Pravastatin (PRAVACHOL) tablet 20 mg (has no administration in time range) Latanoprost (XALATAN) 0.005 % ophthalmic solution 1 drop (has no administration in time range) Timolol maleate (TIMOPTIC) 0.5 % ophthalmic solution 1 drop (has no administration in time range) ALLERGIES Allergies Allergen Reactions Lisinopril Cough Silver Sulfadiazine FAMILY HISTORY History reviewed. No pertinent family history. SOCIAL HISTORY Social History Socioeconomic History Marital status: Spouse name: Not on file Number of children: Not on file Years of education: Not on file Highest education level: Not on file Occupational History Not on file Tobacco Use Smoking status: Former Types: Cigarettes Smokeless tobacco: Never Vaping Use Vaping status: Never Used Substance and Sexual Activity Alcohol use: Not Currently Drug use: Never Sexual activity: Yes Other Topics Concern Service No Blood Transfusions No Caffeine Concern No Occupational Exposure No Hobby Hazards No Sleep Concern No Stress Concern No Weight Concern No Special Diet No Back Care No Exercise No Bike Helmet No Seat Belt No Domestic Violence No Social History Narrative Not on file Social Determinants of Health Financial Resource Strain: Low Risk (05/30/2023) Overall Financial Resource Strain (CARDIA) Difficulty of Paying Living Expenses: Not hard at all Food Insecurity: No Food Insecurity (05/30/2023) Hunger Vital Sign Worried About Running Out of Food in the Last Year: Never true Ran Out of Food in the Last Year: Never true Transportation Needs: No Transportation Needs (05/30/2023) PRAPARE - Transportation Lack of Transportation (Medical): No Lack of Transportation (Non-Medical): No Physical Activity: Not on file Stress: Not on file Social Connections: Not on file Intimate Partner Violence: Not At Risk (05/30/2023) Humiliation, Afraid, Rape, and Kick questionnaire Fear of Current or Ex-Partner: No Emotionally Abused: No Physically Abused: No Sexually Abused: No Housing Stability: Low Risk (05/30/2023) Housing Stability Vital Sign Unable to Pay for Housing in the Last Year: No Number of Places Lived in the Last Year: 1 Unstable Housing in the Last Year: No Recent Concern: Housing Stability - High Risk (05/30/2023) Housing Stability Vital Sign Unable to Pay for Housing in the Last Year: Yes Number of Places Lived in the Last Year: 1 Unstable Housing in the Last Year: No PHYSICAL EXAM BP 182/77 Pulse 56 Temp 97.1 F (36.2 C) (Oral) Resp 16 Ht 1.651 m (5' 5) SpO2 96% BMI 33.38 kg/m Smoking Status Former Physical Exam Vitals and nursing note reviewed. Constitutional: Appearance: Normal appearance. She is not ill-appearing. HENT: Head: Atraumatic. Eyes: Comments: Eyes dilated, exam per ophtho Cardiovascular: Rate and Rhythm: Normal rate. Pulmonary: Effort: Pulmonary effort is normal. Breath sounds: Normal breath sounds. Musculoskeletal: General: Normal range of motion. Cervical back: Normal range of motion. Skin: General: Skin is warm and dry. Neurological: General: No focal deficit present. Mental Status: She is alert and oriented to person, place, and time. Psychiatric: Mood and Affect: Mood normal. Behavior: Behavior normal. EDOU COURSE & MEDICAL DECISION MAKING Risk stratification appropriate for observation level of care.? Patient was placed in EDOU on the General Observation Protocol protocol. Patient age greater than 64y/o? YES Geriatrics Screening: Delirium Triage Screen: Exclusion Criteria: Non-zero scores are abnormal. The above score does not represent acute delirium based on my assessment. Stage Balance Assessment Score: Exclusion Criteria: Non-zero scores are abnormal. The patient does need urgent physical and occupational therapy consultation or referral for fall risk assessment based on the above score and my assessment. ISAR Score: Exclusion Criteria: Scores of 2 or higher should prompt consideration of case management consultation. The patient does not need case management based on my assessment. The patient does not Geriatrics consultation or outpatient referral based on the above screening and my assessment. DDx includes: mass, morales, glaucoma, ophthalmic nerve compression I reviewed the patients' medical records and nursing notes and noted their allergies, past medical history, and previous visits. The reviewed showed Results for orders placed or performed during the hospital encounter of 10/16/23 CBC AND ELECTRONIC DIFF Result Value Ref Range WBC Count 6.08 3.99 - 11.19 K/uL RBC Count 5.57 (H) 3.91 - 5.04 M/uL Hemoglobin 16.2 (H) 11.4 - 15.2 g/dL Hematocrit 47.9 (H) 34.9 - 44.3 % Mean Cell Volume 86.0 79.6 - 97.7 fL Mean Cell Hgb 29.1 25.9 - 33.9 pg Mean Cell Hgb Conc 33.8 31.4 - 35.9 g/dL RBC Distribution 13.2 10.8 - 14.9 % Platelet Count 227 150 - 393 K/uL Mean Platelet Volume 9.9 8.5 - 12.2 fL DIFF STATUS Electronic Differential Segs + Bands Auto 57.9 % Immature Grans % 0.3 % Lymphocyte % Auto 31.6 % Monocyte % Auto 6.9 % Eosinophil % Auto 2.6 % Basophil % Auto 0.7 % Nucleated RBC 0.0 <=0.2 /100 WBC Segs + Bands,Absolute Auto 3.52 1.64 - 7.28 K/uL Immature Grans Absolute <0.04 <=0.08 K/uL Abs Lymph Auto 1.92 1.16 - 3.51 K/uL Abs Highland Auto 0.42 0.22 - 0.87 K/uL Abs Eos Auto 0.16 0.00 - 0.42 K/uL Abs Baso Auto 0.04 0.00 - 0.15 K/uL MRI BRAIN WITH AND WITHOUT CONTRAST (Results Pending) MRI ORBITS WITH AND WITHOUT CONTRAST (Results Pending) ? The patient received the following interventions in the ED to date: na On reassessment the patient's response to the interventions was na While in the EDOU we will continue to check, monitor and reassess patient and alter our plan as clinically appropriate. Plan: ? MRI brain, MRI orbits, optho I have discussed this plan of care with the ED team. . This is a non-shared visit on 10/16/2023. Electronically signed by: SEAN Fernandez, 10/16/2023 4:51 PM [facility] Work Phone: 10-16-2023 Physician Emergency department Note ED Sign Out Note Ileana Leone is a 67 y.o. female SO: R ICA aneurysm hx s/p coils placed 05/2023, blurry vision , was sent here for neuro optho eval, dispo pending optho Vitals: 10/16/23 1223 BP: 182/77 Pulse: 56 Resp: 16 Temp: 97.1 degrees F (36.2 degrees C) TempSrc: Oral SpO2: 96% Height: 1.651 m (5' 5) Update ED Course as of 10/16/23 1548 ThuOctober 16, 2023 1504 SO: R ICA aneurysm hx s/p coils placed 05/2023, blurry vision , was sent here for neuro optho eval, dispo pending optho 1524 Spoke with Optho Would get MRI brain and orbits both with and without contrast. Would get CTA head and neck. Labs would get MOG, NMO, RF, JOSH, ANCA, JUJU, Lysozyme, TB, Syphilis, Lyme. 1535 Plan for admission to [facility] for further work up. She had CTA head at [facility]. Trying to get images pushed over, if not able to in a few hours, will re order CT scanning here 1542 Plan for optho follow up after MRI. If MRI work up with acute findings then patient will likely need admission for further work up, if MRI findings negative, patient could be discharge. Impression: blurry vision Dispo: pending work up Patient Ileana Leone [id number] to be placed in observation unit for MRI and lab work. 1.Patient is agreeable to being placed in the EDOU Yes 2.Results of pertinent labs: n/a 3.Results of pertinent Imaging: n/a EDOU Problem List: 1. Blurry vision : Plan of care: CT scans, MRI, lab work, dispo pending optho recs after work up, admission vs discharge pending findings Domingo Delgado MD Resident 10/16/23 [id number] [facility] Work Phone: 10-16-2023 Physician Emergency department Note dEPARTMENT of Emergency Medicine CHIEF COMPLAINT Eye Problem HPI Ileana Leone is a 67 y.o. female with past medical history of known right ICA aneurysm status post coiling in May of 2023 who presents blurred vision. Per patient, she has had persistent blurry vision over last year that has been worsening over last couple weeks. Patient has been attempting to follow up with Neuro-Ophthalmology for progressive vision loss however has been unsuccessful in obtaining appointment so presented to the ER today due to worsening visual loss. Denies headaches, changes in vision with positioning, and exacerbating or alleviating factors. REVIEW OF SYSTEMS Review of Systems Constitutional: Negative for chills and fever. HENT: Negative for congestion, rhinorrhea and sore throat. Eyes: Positive for visual disturbance. Negative for pain. Respiratory: Negative for cough and shortness of breath. Cardiovascular: Negative for chest pain and palpitations. Gastrointestinal: Negative for abdominal pain, diarrhea, nausea and vomiting. Genitourinary: Negative for dysuria and urgency. Musculoskeletal: Negative for back pain and neck pain. Skin: Negative for pallor and wound. Neurological: Negative for dizziness, weakness and headaches. Psychiatric/Behavioral: Negative for confusion. The patient is not nervous/anxious. PAST MEDICAL HISTORY No past medical history on file. 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 Current Outpatient Medications Medication Sig Dispense Refill Acetaminophen 325 MG tablet Take 2 tablets by mouth every 4 hours as needed for Mild Pain or Other (Oral temp > 99.5 F). 0 brimonidine 0.15 % Solution ophthalmic solution 1 drop 3 times daily. Use in affected eye(s). calcium acetate - Phos Binder 667 MG capsule Take 1 capsule by mouth 3 times daily with meals. Eliquis 5 MG tablet Take by mouth every 12 hours. Flecainide 50 MG tablet Take 1 tablet by mouth 2 times daily. Latanoprost 0.005 % Solution ophthalmic solution 1 drop At bedtime. Metoprolol succinate 50 MG tablet XL Take 1 tablet by mouth. Multivitamin w/ minerals tablet Take 1 tablet by mouth daily. Probiotic Product (PROBIOTIC 10 ULTRA STRENGTH PO) Take by mouth. simvastatin 10 MG tablet Take 1 tablet by mouth every evening at 6 PM. ticagrelor 90 MG tablet Take 1 tablet by mouth every 12 hours. 60 tablet 1 ALLERGIES Allergies Allergen Reactions Lisinopril Cough Silver Sulfadiazine FAMILY HISTORY History reviewed. No pertinent family history. SOCIAL HISTORY Social History Socioeconomic History Marital status: Spouse name: Not on file Number of children: Not on file Years of education: Not on file Highest education level: Not on file Occupational History Not on file Tobacco Use Smoking status: Former Types: Cigarettes Smokeless tobacco: Never Vaping Use Vaping status: Never Used Substance and Sexual Activity Alcohol use: Not Currently Drug use: Never Sexual activity: Yes Other Topics Concern Service No Blood Transfusions No Caffeine Concern No Occupational Exposure No Hobby Hazards No Sleep Concern No Stress Concern No Weight Concern No Special Diet No Back Care No Exercise No Bike Helmet No Seat Belt No Domestic Violence No Social History Narrative Not on file Social Determinants of Health Financial Resource Strain: Low Risk (05/30/2023) Overall Financial Resource Strain (CARDIA) Difficulty of Paying Living Expenses: Not hard at all Food Insecurity: No Food Insecurity (05/30/2023) Hunger Vital Sign Worried About Running Out of Food in the Last Year: Never true Ran Out of Food in the Last Year: Never true Transportation Needs: No Transportation Needs (05/30/2023) PRAPARE - Transportation Lack of Transportation (Medical): No Lack of Transportation (Non-Medical): No Physical Activity: Not on file Stress: Not on file Social Connections: Not on file Intimate Partner Violence: Not At Risk (05/30/2023) Humiliation, Afraid, Rape, and Kick questionnaire Fear of Current or Ex-Partner: No Emotionally Abused: No Physically Abused: No Sexually Abused: No Housing Stability: Low Risk (05/30/2023) Housing Stability Vital Sign Unable to Pay for Housing in the Last Year: No Number of Places Lived in the Last Year: 1 Unstable Housing in the Last Year: No Recent Concern: Housing Stability - High Risk (05/30/2023) Housing Stability Vital Sign Unable to Pay for Housing in the Last Year: Yes Number of Places Lived in the Last Year: 1 Unstable Housing in the Last Year: No PHYSICAL EXAM BP 182/77 Pulse 56 Temp 97.1 F (36.2 C) (Oral) Resp 16 Ht 1.651 m (5' 5) SpO2 96% BMI 33.38 kg/m Smoking Status Former Physical Exam Vitals and nursing note reviewed. Constitutional: General: She is not in acute distress. HENT: Head: Normocephalic and atraumatic. Right Ear: External ear normal. Left Ear: External ear normal. Nose: Nose normal. No congestion. Mouth/Throat: Mouth: Mucous membranes are moist. Pharynx: Oropharynx is clear. Eyes: Extraocular Movements: Extraocular movements intact. Conjunctiva/sclera: Conjunctivae normal. Pupils: Pupils are equal, round, and reactive to light. Cardiovascular: Rate and Rhythm: Normal rate and regular rhythm. Heart sounds: Normal heart sounds. Pulmonary: Effort: Pulmonary effort is normal. Breath sounds: Normal breath sounds. Abdominal: General: Abdomen is flat. Bowel sounds are normal. Palpations: Abdomen is soft. Tenderness: There is no abdominal tenderness. There is no guarding. Musculoskeletal: General: No swelling or tenderness. Normal range of motion. Cervical back: Normal range of motion and neck supple. Skin: General: Skin is warm and dry. Capillary Refill: Capillary refill takes less than 2 seconds. Neurological: General: No focal deficit present. Mental Status: She is alert and oriented to person, place, and time. Cranial Nerves: No cranial nerve deficit. Sensory: No sensory deficit. Motor: No weakness. Psychiatric: Mood and Affect: Mood normal. Behavior: Behavior normal. ED COURSE & MEDICAL DECISION MAKING Medical Decision Making Patient presenting to the emergency department today for concern of progressive visual loss. Patient does have a known aneurysm of the right ICA with concern for compressive neuropathy in the setting of aneurysmal size. Physical exam otherwise unremarkable. Unable to assess visual acuity as patient is not able to read eye chart. Patient does see shapes and patient is with some blurred vision. No pain with extraocular movements and otherwise normal reactive vision. Ophthalmology consult was placed for neuro ophthalmological evaluation. Requested imaging from outside hospital 1 week ago to determine if changes in aneurysmal size. No need for acute neurosurgical evaluation at this time as I have no evidence of focal deficits concerning for rebleed. Disposition pending ophthalmology recommendations. Problems Addressed: Visual disturbance: acute illness or injury Amount and/or Complexity of Data Reviewed Independent Historian: spouse External Data Reviewed: labs and notes. Josette Georges MD Resident 10/16/23 [id number] [facility] 10-16-2023 Consult note Associated Order (s): IP CONSULT TO OPHTHALMOLOGY OPHTHALMOLOGY CONSULT NOTE REASON FOR CONSULTATION: persistent blurred vision, optic neuropathy HISTORY OF PRESENT ILLNESS: Patient is a 67 y.o. female with past medical history of known right ICA aneurysm status post coiling in May of 2023 who was admitted 10/16/2023 for evaluation and management of bilateral optic neuropathy. Ophthalmology was consulted 10/16/23 to assess above. She reports for the last 6 months-1 year she has had decreased vision. 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 Reportedly this was thought to be the cause of her vision loss, but her vision did not improve after this procedure. She reports that on September 29 she awoke and her vision was noticeably worse than previous. She denies any associated symptoms, no headaches, fever, chills, eye pain, recent illness. OCULAR REVIEW: History: right ICA aneurysm s/p coiling Provider: Local cheese cook Last Exam: <1 month ago Eyedrops/Medications: None Family History: Non-contributory PAST MEDICAL, SURGICAL, FAMILY, and SOCIAL HISTORY: No past medical history on file. 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 No pertinent family history. Social History Tobacco Use Smoking status: Former Types: Cigarettes Smokeless tobacco: Never Substance Use Topics Alcohol use: Not Currently Social History Substance and Sexual Activity Drug Use Never REVIEW OF SYSTEMS: Limited review obtained from the patient; for full review, please see primary team's documentation. General: negative Ophthalmic: see HPI ENT: negative Allergy/Immuno: negative Respiratory: No dyspnea or SOB Cardiovascular: no chest pain or dyspnea on exertion Gastrointestinal: no abdominal pain or change in bowel habit Musculoskeletal: negative Neurological: no TIA or stroke symptoms Dermatological: Negative All other systems reviewed and were negative. ALLERGIES: Allergies Allergen Reactions Lisinopril Cough Silver Sulfadiazine MEDICATIONS: Home Current Outpatient Medications Medication Sig dorzolamide-timolol 2-0.5 % Solution ophthalmic solution Place 1 drop in both eyes 2 times daily. Acetaminophen 325 MG tablet Take 2 tablets by mouth every 4 hours as needed for Mild Pain or Other (Oral temp > 99.5 F). brimonidine 0.15 % Solution ophthalmic solution 1 drop 3 times daily. Use in affected eye(s). calcium acetate - Phos Binder 667 MG capsule Take 1 capsule by mouth 3 times daily with meals. Eliquis 5 MG tablet Take by mouth every 12 hours. Flecainide 50 MG tablet Take 1 tablet by mouth 2 times daily. Latanoprost 0.005 % Solution ophthalmic solution 1 drop At bedtime. Metoprolol succinate 50 MG tablet XL Take 1 tablet by mouth. Multivitamin w/ minerals tablet Take 1 tablet by mouth daily. Probiotic Product (PROBIOTIC 10 ULTRA STRENGTH PO) Take by mouth. simvastatin 10 MG tablet Take 1 tablet by mouth every evening at 6 PM. ticagrelor 90 MG tablet Take 1 tablet by mouth every 12 hours. PHYSICAL EXAM: Temp: [97.1 F (36.2 C)] 97.1 F (36.2 C) Pulse (Heart Rate): [56] 56 Resp Rate: [16] 16 BP: (182)/(77) 182/77 O2 Sat (%): [96 %] 96 % Base Eye Exam Visual Acuity (Snellen - Linear) Right Left Near sc CF HM with projection Tonometry (2:31 PM) Right Left Pressure 14 15 Pupils Shape React APD Right Round Sluggish None Left Round Sluggish Trace Visual Tristan Left Right Full Full Extraocular Movement Right Left Full Full Neuro/Psych Oriented x3: Yes Dilation Both eyes: 1.0% Mydriacyl, 2.5% Phenylephrine @ 3:00 PM Slit Lamp and Fundus Exam External Exam Right Left External Normal Normal Slit Lamp Exam Right Left Lids/Lashes Normal Normal Conjunctiva/Sclera White and quiet White and quiet Cornea Clear Clear Anterior Chamber Deep and quiet Deep and quiet Iris Round and reactive Round and reactive Lens NS NS Anterior Vitreous Normal Normal Fundus Exam Right Left Disc Pallorous OS>OD Pallorous OS>OD, temporal cupping Macula Normal Normal Vessels Normal Normal Periphery Normal Normal LABS AND IMAGING: WBC/Hgb/Hct/Plts: 6.08/16.2/47.9/227 (10/15 1609) No results found for: HGBA1C Relevant Results: MRI BRAIN WITH AND WITHOUT CONTRAST (Results Pending) MRI ORBITS WITH AND WITHOUT CONTRAST (Results Pending) CT ANGIO BRAIN/NECK (Results Pending) ASSESSMENT AND PLAN: Ileana Leone is a 67 y.o. 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 -Chronic over the last year but with acute worsening over the last 2 weeks -Differential is broad but overall concerning for compressive process given bilateral nature and chronicity, less likely optic neuritis given lack of pain -Recommend MRI brain and orbits, CTA head and neck in addition to optic neuritis labs (MOG, NMO, RF, JOSH, ANCA, JUJU, Lysozyme, TB, Syphilis, Lyme) -Ophthalmology will follow above results Patient was examined with Norman Petty MD Ophthalmology, PGY-2 Associated attestation - Jeff Moreau MD - 10/16/2023 9:42 PM EDT Ophthalmology Attending Note: I saw and personally examined the patient 10/16/23 with the resident. I discussed the findings and therapeutic plan with the resident. I agree with the history, physical examination, and medical decisions as outlined, with the following edits: none Diagnoses: - Optic neuropathy OU Plan: as below Patricia oMreau MD Ophthalmology Attending [facility] Work Phone: 10-16-2023 Consult note Associated Order (s): IP CONSULT TO OPHTHALMOLOGY OPHTHALMOLOGY CONSULT NOTE REASON FOR CONSULTATION: persistent blurred vision, optic neuropathy HISTORY OF PRESENT ILLNESS: Patient is a 67 y.o. female with past medical history of known right ICA aneurysm status post coiling in May of 2023 who was admitted 10/16/2023 for evaluation and management of bilateral optic neuropathy. Ophthalmology was consulted 10/16/23 to assess above. She reports for the last 6 months-1 year she has had decreased vision. 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 Reportedly this was thought to be the cause of her vision loss, but her vision did not improve after this procedure. She reports that on September 29 she awoke and her vision was noticeably worse than previous. She denies any associated symptoms, no headaches, fever, chills, eye pain, recent illness. OCULAR REVIEW: History: right ICA aneurysm s/p coiling Provider: Local cheese cook Last Exam: <1 month ago Eyedrops/Medications: None Family History: Non-contributory PAST MEDICAL, SURGICAL, FAMILY, and SOCIAL HISTORY: No past medical history on file. 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 No pertinent family history. Social History Tobacco Use Smoking status: Former Types: Cigarettes Smokeless tobacco: Never Substance Use Topics Alcohol use: Not Currently Social History Substance and Sexual Activity Drug Use Never REVIEW OF SYSTEMS: Limited review obtained from the patient; for full review, please see primary team's documentation. General: negative Ophthalmic: see HPI ENT: negative Allergy/Immuno: negative Respiratory: No dyspnea or SOB Cardiovascular: no chest pain or dyspnea on exertion Gastrointestinal: no abdominal pain or change in bowel habit Musculoskeletal: negative Neurological: no TIA or stroke symptoms Dermatological: Negative All other systems reviewed and were negative. ALLERGIES: Allergies Allergen Reactions Lisinopril Cough Silver Sulfadiazine MEDICATIONS: Home Current Outpatient Medications Medication Sig dorzolamide-timolol 2-0.5 % Solution ophthalmic solution Place 1 drop in both eyes 2 times daily. Acetaminophen 325 MG tablet Take 2 tablets by mouth every 4 hours as needed for Mild Pain or Other (Oral temp > 99.5 F). brimonidine 0.15 % Solution ophthalmic solution 1 drop 3 times daily. Use in affected eye(s). calcium acetate - Phos Binder 667 MG capsule Take 1 capsule by mouth 3 times daily with meals. Eliquis 5 MG tablet Take by mouth every 12 hours. Flecainide 50 MG tablet Take 1 tablet by mouth 2 times daily. Latanoprost 0.005 % Solution ophthalmic solution 1 drop At bedtime. Metoprolol succinate 50 MG tablet XL Take 1 tablet by mouth. Multivitamin w/ minerals tablet Take 1 tablet by mouth daily. Probiotic Product (PROBIOTIC 10 ULTRA STRENGTH PO) Take by mouth. simvastatin 10 MG tablet Take 1 tablet by mouth every evening at 6 PM. ticagrelor 90 MG tablet Take 1 tablet by mouth every 12 hours. PHYSICAL EXAM: Temp: [97.1 F (36.2 C)] 97.1 F (36.2 C) Pulse (Heart Rate): [56] 56 Resp Rate: [16] 16 BP: (182)/(77) 182/77 O2 Sat (%): [96 %] 96 % Base Eye Exam Visual Acuity (Snellen - Linear) Right Left Near sc CF HM with projection Tonometry (2:31 PM) Right Left Pressure 14 15 Pupils Shape React APD Right Round Sluggish None Left Round Sluggish Trace Visual Tristan Left Right Full Full Extraocular Movement Right Left Full Full Neuro/Psych Oriented x3: Yes Dilation Both eyes: 1.0% Mydriacyl, 2.5% Phenylephrine @ 3:00 PM Slit Lamp and Fundus Exam External Exam Right Left External Normal Normal Slit Lamp Exam Right Left Lids/Lashes Normal Normal Conjunctiva/Sclera White and quiet White and quiet Cornea Clear Clear Anterior Chamber Deep and quiet Deep and quiet Iris Round and reactive Round and reactive Lens NS NS Anterior Vitreous Normal Normal Fundus Exam Right Left Disc Pallorous OS>OD Pallorous OS>OD, temporal cupping Macula Normal Normal Vessels Normal Normal Periphery Normal Normal LABS AND IMAGING: WBC/Hgb/Hct/Plts: 6.08/16.2/47.9/227 (10/15 1609) No results found for: HGBA1C Relevant Results: MRI BRAIN WITH AND WITHOUT CONTRAST (Results Pending) MRI ORBITS WITH AND WITHOUT CONTRAST (Results Pending) CT ANGIO BRAIN/NECK (Results Pending) ASSESSMENT AND PLAN: Ileana Leone is a 67 y.o. 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 Moreau, Norman Webber MD Ophthalmology, PGY-2 Associated attestation - Jeff Moreau MD - 10/16/2023 9:42 PM EDT Ophthalmology Attending Note: I saw and personally examined the patient 10/16/23 with the resident. I discussed the findings and therapeutic plan with the resident. I agree with the history, physical examination, and medical decisions as outlined, with the following edits: none Diagnoses: - Optic neuropathy OU Plan: as below Patricia Moreau MD Ophthalmology Attending documented in this encounter [facility] 10-16-2023 Physician Emergency department Note ED Attending Chief complaint: Chief Complaint Patient presents with Eye Problem Ileana Leone is a female 67 y.o. who presents with vision loss over the past year. Had brain aneurysm coiled earlier this year. Has been trying to see neuroophthalmology but unable to get in so she was sent in by her cheese cook. States all vision is darkened and cannot see screens. She tells me she had CTA done one week ago at [facility]. Reviewed prior CTA and this is a quite large aneurysm so compressive optic neuropathy makes sense. Reviewed PMH, PSH, social and family history as well as medical record. Pertinent positives and negatives included in HPI. ROS: Pertinent positives and negatives for 10 system ROS are included in HPI. All other review of systems were reviewed and are negative unless otherwise documented. Pertinent Physical Exam findings: BP 182/77 Pulse 56 Temp 97.1 F (36.2 C) (Oral) Resp 16 Ht 1.651 m (5' 5) SpO2 96% BMI 33.38 kg/m Smoking Status Former Gen: NAD, well appearing PERRLA EOMI no nystagmus CV: RRR, no murmur, 2+ pulses in all extremities Pulm: CTAB, breathing comfortably on RA GI: abdomen soft, non tender, non distended Neuro: AAOx4, no focal neurological deficits other than severely limited vision cannot read any on my eye chart Ileana Leone is a 67 y.o. 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 They warrant ophthalmolgoy evaluation for this. I do not see a way that the aneurysm would relate to this. Dispo pending ophtho eval. Impression:vision loss Disposition: pending ophtho On 10/16/2023 I saw and examined the patient. I discussed the history and examination with the resident and agree with the plan of care. I reviewed imaging and labs that were obtained No orders to display Medical Decision Making Vision loss chronic with severe exacerbation Risk Decision regarding hospitalization. Placido Mata MD 10/16/23 1340 Placido Mata MD 10/16/23 1345 [facility] Work Phone: 10-16-2023 Emergency department Note Pt reports blurred vision started last summer. Dx with brain aneurysm. Pt had two coils placed in May. Vision keeps getting worse. Has eye doctor recently who instructed her to come to ER. Scheduled for angiogram. Pt has been attempting to schedule appointment with [facility] neuro-ophthalmology team. Since they haven't heard back her eye doctor instructed them to come to [facility] ER. [facility] 05-31-2023 Hospital Discharge instructions Tristen Nath MD - 05/31/2023 11:26 AM EST Images from the original note were not included. What is a Brain Aneurysm? Arteries are the blood vessels that lead from the heart to organs such as the brain. A brain aneurysm is a balloon-like bulge in the wall of a brain artery. If this bulge tears and bleeds, nearby cells may be damaged, this is a hemorrhagic stroke. A brain aneurysm can occur in an artery wall that is weak or has a defect. Yours is . Aneurysm is often associated with hardening of the arteries. High blood pressure, heredity, smoking, alcohol abuse, cocaine abuse, and a head injury are also risk factors. Symptoms In most cases, a brain aneurysm has no symptoms until it bleeds or tears. Symptoms of bleeding or tearing include a combination of: Sudden onset of severe headache, nausea, and vomiting Neck stiffness Brief blackout Confusion or sluggishness Vision or speech problems Paralysis or weakness on one side of the body Clumsiness Jerking movements, suck as seizures or convulsions Coma Prompt treatment can save a life A bleeding brain aneurysm needs to be evaluated immediately and treated if possible. Doing so may save a person's life. CALL 911/EMS as time is brain. Some aneurysmal bleeding can only be treated with supportive medical care. If the aneurysm has bled, treatment may not reverse the resulting brain damage. But, in many cases, surgery may help prevent more bleeding, remove trapped blood in and around the brain, or relieve excessive brain pressure. Other forms of therapy, such as envascular coiling or microvascular clipping, to prevent additional bleeding may be considered. 7289-2406 [employer]. [address] [place] [address], [place] [address]. All rights reserved. This information is not intended as a substitute for professional medical care. Always follow your healthcare professional's instructions. Carotid/cerebral Angiography Carotid/cerebral angiography is a type of X-ray test used to view the carotid arteries. These are the large blood vessels that supply your brain with blood. During the test, a thin, flexible tube called a catheter is passed into an artery leading to the carotids. Contrast fluid is then injected through the catheter. The fluid makes it easier Risks/complications of angiogram, <1% of complications, including: Groin bruising Groin hematoma Stroke from clots forming on catheter Surgery for a Brain Aneurysm Surgery for bleeding aneurysm is done as soon as possible if it just bled. It is usually not urgent if the aneurysm has not bled. One of 2 types of surgery is generally used. In open surgery, a portion of your skull is removed. In an endovascular procedure, your surgeon goes through the blood vessel leading toward your aneurysm. Treatment may not reverse any damage already done if the aneurysm has ruptured. The goal is to prevent the aneurysm from bleeding. ____Open surgery (CLIPPING): Your surgeon reaches your brain through your skull. First, you receive sleep medicine (anesthesia) during the surgery. Then, after a scalp incision, small holes are made in your skull. The bone between the holes is cut and lifted away. The membrane (dura) is peeled back. Trapped blood and cerebrospinal fluid may be removed. Your surgeon closes off (clips) your aneurysm. Or the artery leading to the aneurysm is sealed off (occluded). The dura and the piece of skull are put back in place. A device that measures the pressure inside your skull or that drains your spinal fluid may be left in one of the small holes. Your surgeon may put a clip on your aneurysm where it bulges from the artery. This keeps blood from going into the aneurysm. As a result, future bleeding is stopped and nearby brain tissue is protected from more damage. Your surgeon makes sure that the clip is secure before finishing the surgery. This method is done through open surgery. This is 4-6 weeks for recovery. You will spend about 3-5 days in the hospital. You will return to clinic in 7-10 days for staple removal, 4-6 weeks for wound evaluation. ____Endovascular procedure (COILING, STENT-PLACEMENT): WE RECOMMEND A PIPELINE FLOW DIVERTING STENT An endovascular procedure may be best for some aneurysms. Anesthesia is given to block pain. Then a catheter is guided through the arteries from your groin to your brain. This will start like an angiogram, but Dr. Marrufo will then advance the catheter to your aneurysm neck. A tightly-woven stent is placed in the parent vessel OUTSIDE of the aneurysm to reduce blood flow into the aneurysm. Eventually a blood clot will form INSIDE the aneurysm. This seals it off. This is a very effective and less risky way to treat aneurysms than open surgery. But there is a slightly greater risk that the aneurysm will re-form when compared to clipping. Not all aneurysms can be treated by an endovascular approach. This is an overnight hospitalization. You will return in 4-6 weeks for re-evaluation. For this option, you MUST be on aspirin 325 mg for 6 months and Plavix 75 mg for 3 months. You will start these 1 week prior to your procedure. We will check your blood levels before placing the stent to ensure that the meds are working. These medications decrease the reactivity of your platelets to the stents until the stent is covered by the vessel's natural endothelial lining. If the platelets react to the stent, they can form a clot and cause a stroke. For this reason, you MUST be compliant with the aspirin and plavix use. You cannot miss doses. No one should adjust the dose without discussion from Dr. Marrufo' office. Risks and complications Risks and complications include: Blood clots in the brain, or stroke Brain swelling or bleeding Bleeding from the aspirin and plavix The surgery can fail to occlude the aneurysm, recurrence Weakness, paralysis, or loss of vision Confusion, loss of speech, loss of memory Infection Spasm in a blood vessel that limits blood flow which can cause you to have a stroke Jerking or abnormal movements, loss of consciousness (seizures) Swelling of the brain (hydrocephalus) Coma 1352-1301 [employer]. [address] [place], [place] [id number]. All rights reserved. This information is not intended as a substitute for professional medical care. Always follow your healthcare professional's instructions. The following instructions will help you care for yourself, or be cared for upon your return home today. These are guidelines for your care right after your surgery only. Notify Your Doctor or Nurse if you have any of the following: SYMPTOMS OF WOUND INFECTION-- Increased pain in or around the incision Swelling around the incision Any drainage from the incision Incision separates or opens up Warmth in the tissues around the incision Redness or tenderness on the skin near the incision Fever (temperature greater than 101 degrees F) NEUROLOGICAL CHANGES-- Change in alertness Increased sleepiness Nausea and vomiting New onset of numbness or weakness in arms or legs New problems with your bowels or bladder New or worse problems with balance or walking Seizures, new or worsening UNRELIEVED HEADACHE PAIN-- New or increased pain unrelieved with pain medications Pain associated with nausea and vomiting Pain associated with other symptoms QUESTIONS OR PROBLEMS-- Any questions or problems that you are unsure about Wound Care: Keep Incision Clean and Dry You may shower daily, but do not soak incision. Pat dry after showering. No tub baths, soaking, swimming for 1 week after angiogram. You do not need to cover the incision. Mild to moderate bruising and tenderness to the site is expected and may last up to 1-2 weeks after your procedure. For groin closures: A closure device was placed at the catheter insertion site. This is MRI compatible. Remove the dressing 24 hours after your procedure. For wrist punctures: Do not lift greater than 3-5 pounds for 3 days. You may remove this dressing 24 hours after your procedure. If your access site is bleeding, apply firm pressure for 10 minutes. Reinforce dressing rather than removing and checking frequently. If continues to bleed through the dressing after 1 hour, contact your neurosurgeon's office. Anticipatory Education: PAIN MED W/ Acetaminophen (Tylenol) --IF a prescription for pain medicine has been sent home with you: --Narcotic pain medication may cause constipation. Be sure to take stool softeners or laxatives while you are on narcotic pain medication. --Do not drive after taking prescription pain medicine. If this medicine is too strong, or no longer necessary, or we did NOT recommend/prescribe oral narcotics, you may take: - Tylenol Extra-strength/Acetaminophen, 2 tablets every 4-6 hours as needed for mild pain. DO NOT TAKE MORE THAN 4000MG PER DAY from combined sources. NOTE: Remember to eat when taking pain medicines in order to avoid nausea. Watch for constipation. Eat plenty of fruits, vegetables, juices, and drink 6-8 glasses of water each day. Constipation: Stay active and drink at least 6-8 cups of fluid each day to prevent constipation. If you need a laxative or stool softener follow the package directions or consult with your local pharmacists if you have questions. After anesthesia, rest for [address], drink alcohol beverages or make any important decisions during this time. General anesthesia may cause sore throat, jaw discomfort or muscle aches. These symptoms can last for one or two days. Activity: Please follow these instructions: Advance your activity as you can tolerate. You may do light house work; nothing strenuous You may walk all you want. You may go up and down the steps. Use the railing for support Do not do excessive bending, straining or heavy lifting for 4-6 weeks after your procedure Do not drive or return to work until you are instructed It is normal for your energy level and sleep patterns to change after surgery. Get extra sleep at night and take naps during the day to help you feel less tired. Take rest periods during the day. Complete recovery may take several weeks. You may resume driving after 24-48 hours recovery. You may return to work after 48 hours of recovery. Diet: Your doctor has recommended that you follow these diet instructions at home. Refer to the patient education materials you received during your hospital stay. If you would like more nutrition counseling, ask your doctor about making an appointment with an outpatient dietitian. Resume your home diet Medications: Please resume your home medications as instructed. Home Supplies and Equipment: none Additional Contacts: CONTACTS FOR NEUROSURGERY: You may call your neurosurgeon s office if you have questions between 8:30 am and 4:30 pm. You may request to speak to the nurse practitioner who is available Thursday through Thursday. For off hours or the weekend you may call your neurosurgeon's office to leave a message or if urgent, the neurosurgery resident division superintendent may be paged. Patient experience survey reminder You may receive a survey in the mail within a few weeks regarding your hospitalization. This helps us to improve the care and services we provide at [facility]. We truly appreciate you taking the time to fill this out. We particularly welcome any specific comments you may have (positive or constructive regarding your experience at [facility] so that we may continue to strive towards excellence for our patients. documented in this encounter [facility] 05-31-2023 History of Present illness Narrative NEUROCRITICAL CARE DAILY NOTE HOSPITAL VISIT DEMOGRAPHICS Patient: Ileana Leone Code status: Full Code Admission date: 05/30/2023 1:42 AM Hospital days: LOS: 1 day HISTORY OF PRESENT ILLNESS Ileana Leone is a 67 y.o. female with a past history of afib (on eliquis, last dose AM 05/29), HTN, HLD, and glaucoma. She arrived as a direct admit after receiving an outpatient MRI for evaluation of headaches and vision changes. She was found to have a possible R ICA aneurysm, which was then confirmed by CT/CTA. The aneurysm was not ruptured, but did appear to be filled with a clot. She was transferred to [facility] for a DCA with possible embolization. She underwent NS intervention and was admitted to [facility] for post-op management INTERVAL HISTORY SINCE ADMISSION 05/30/2023: admitted to [facility]. Integrilin gtt overnight. 05/31: dc per NS PHYSICAL EXAM GENERAL: Alert, no acute distress HEENT: normocephalic, no scalp wounds nor lesions CARDIO: +S1S2, RRR, no murmurs, no edema. NSR on tele PULM: clear to auscultation bilaterally, equal chest rise; tolerating RA ABDOMINAL: soft, nontender, nondistended, active bowel sounds EXTREMITIES: no wounds or lesions. R groin site c/d/I without ecchymosis VASCULAR: 2+ distal pulses, capillary refill <3 seconds NEURO: Mental status: alert; oriented to person, place, year, and month; good attention Speech/language: fluent; comprehension intact; object naming intact; repetition intact Cranial nerves: CN II: Visual tristan intact to confrontation. PERRL. welt stitch cleaner III, IV and : EOMI. No nystagmus. CN V: Facial sensation intact to light touch. CN VII: Facial strength normal with symmetric movement. CN VIII: Hearing is grossly intact. CN IX and X: Soft palate elevates symmetrically in the midline CN XI: Shoulder shrug and sternocleidomastoid strength 5/5 bilaterally CN XII: Tongue is midline with normal movement; no fasciculations Motor: Normal bulk and tone. No UE drift. Sensation: Extremity sensation intact throughout. Coordination: without ataxia/dysmetria on FTS ASSESSMENT AND PLAN Neuro: (05/30/2023) 1 Day Post-Op s/p R ICA pipeline and R ICA aneurysm coiling R ICA aneurysm - Embolization Management - Monitor neurostatus with neurochecks Q1H - Prevent postop hemorrhage with goal SBP <160 (see cards) - Pre-op imaging: very large large supraclinoid aneurysm measuring 3.1 x 2.1 x 2.8 cm. The area within the neck is 8 mm in width with alot of high flow and filled with clots. There is surrounding edema and mass effect on optic nerve R > L. Also, deformity of floor and anterior foramen of mackay - Postop Imaging: none - 05/30 Start ticagrelor post-op - integrillin gtt overnight, DC this AM per NS - Pain/Sedation management - Tylenol 650mg Q4H PRN - Oxycodone 5mg Q4H PRN - Dilaudid 0.5-1mg Q3H PRN Psych: No Current Issues Pulm: No Current Issues O2 Sat (%): 97 % (05/31 0600) O2 Device: room air (05/30 1835) - Goal SpO2 >92%; wean FiO2 as tolerated - PRN5ORG, encourage pulmonary toileting Cards: Essential HTN HLD Afib (on eliquis) Temp: [97.4 F (36.3 C)-98.5 F (36.9 C)] 98.5 F (36.9 C) Pulse (Heart Rate): [56-76] 62 Resp Rate: [16-30] 24 BP: (108-160)/(56-77) 150/70 Arterial Line (1) BP: (128-157)/(47-75) 148/63 O2 Sat (%): [93 %-99 %] 97 % Weight: [95.7 kg (210 lb 15.7 oz)] 95.7 kg (210 lb 15.7 oz) - Goal SBP <160, MAP >65 - PRN labetalol and hydralazine - Continue home metoprolol and flecainide - continue home eliquis - Statin Therapy: atorvastatin 10mg (simvastatin 10 mg home med non-formulary) No results for input(s): CHOLESTEROL, TRIG, HDL, LDLDIRECT in the last 72 hours. Renal/: Hypocalcemia Hypokalemia Hyperchloremia, iatrogenic Hypophosphatemia hypomagnesemia - Fluid Balance: - Goal: euvolemia Intake/Output Summary (Last 24 hours) at 05/31/2023 0705 Last data filed at 05/30/2023 2200 Gross per 24 hour Intake 1000 ml Output 1050 ml Net -50 ml - Maintenance: 0.9NS w/ 20 KCl @ 75mL/hr DC with PO intake - DC phos binder per discussion with pharmacy - Daily Chem 10; electrolytes replaced per NCCU protocol Recent Labs 05/30/23 0604 05/31/23 012 SODIUM 142 141 POTASSIUM 4.3 3.3* CHLORIDE 108 113* CO2 24 17* BUN 10 6* CREATSERUM 0.67 0.53 MAGNESIUM 2.0 1.5* PHOSPHORUS 3.5 2.1* ICA -- 4.03* GI/Nutrition: Obesity No results for input(s): ALBUMIN, BILIDIRECT, BILITOTAL, ALKPHOS, ALT, AST, TP, AMYLASE, LIPASE in the last 72 hours. - DIET REGULAR AAT - [place]ay Swallow Screening Result: passed=cleared for oral intake - Bowel regimen: - Last Bowel Movement: 05/31/23 - Senna, prn miralax Endo: No Current Issues - Goal blood glucose 140-180 Recent Labs 05/30/23 0604 05/31/23 012 GLUCOSE 110* 142* ID: No Current Issues Recent Labs 05/30/23 0255 05/31/23 012 WBC 6.19 8.20 - Temp (24hrs), Av.9 F (36.6 C), Min:97.4 F (36.3 C), Max:98.5 F (36.9 C) - PRN Tylenol for T>100.4F - Most recent and positive cultures: Date Collected Source Result Date Finalized 05/30 Staph nasal swab P - Antiinfectives: Start Date Antiinfective Coverage Course Length Stop Date Heme/Onc: No Current Issues Recent Labs 05/30/23 0255 05/31/23 0125 WBC 6.19 8.20 RBC 5.11* 4.62 HGB 14.8 13.1 HCT 43.7 39.1 PLATELET 165 177 PT 12.6 15.2* PTT 28.7 33.6 INR 1.0 1.2* - Goal plt >100, INR <1.4, Hgb >7 - OR EBL: minimal - OR Blood products given: none Musc: No Current Issues - PT/OT consulted and following - Current Activity Order: AAT Social/Dispo: - Code status: Full Code - - HCPOA/LNOK: - 05/31: Updated patient on plan of care - 05/30: Medications reconciled - Discharge planning per PCRM/SW. Complexity Hypokalemia - Continue to monitor and replete. Hypomagnesemia - Continue to monitor and replete. Hypophosphatemia - Continue to monitor and replete. Hyperphosphatemia - Continue phosphate binder. Obesity Body mass index is 35.11 kg/m . - Follow with PCP for dietary and lifestyle modifications. Any conditions listed below are present on admission unless otherwise specified. ICU Checklist: [ ] CAM-ICU [ ] ICU Diary daily [ ] SAT [ ] SBT [ ] DVT ppx; [ ] SCDs; [ ] Lovenox, [ ] heparin, eliquis, ticagrelor [ ] Stress ulcer prophylaxis: - Lines/Tubes: [place]: inserted 05/30, (indication:hemodynamic monitoring) CVC: inserted / , (indication: ) Paredes: inserted / , (indication: ) Rectal tube: inserted / , (indication: ) Enteral access: inserted / , [ ] gastric; [ ] post-pyloric Patient seen and plan of care discussed with NCCU Attending, Dr. Siddiqui. Discharge per . SEAN Mcdaniel Service pager: [phone] Service [place] #: [phone] (Beds [phone] and beds), [place] #: [phone] (Beds [phone] and [facility]) 05/31/23 7:05 AM 05/30/2023 11:53 PM NEUROICU ATTENDING CRITICAL CARE NOTE: I have examined Ileana Leone, reviewed the events of the previous 24 hours, and reviewed, confirmed and amended the resident's data, history and physical exam as needed. Multidisciplinary rounds occurred at the bedside. The case has been discussed with the NCC and NSGY3 team. ICU Day 0 Day of Surgery I note the following in my assessment and will implement this plan of coordinated critical care management as follows: 24-HR EVENTS: 67 yo woman with hx of afib on Eliqus presented to an OSH with blurry vision MRI showed large thrombosed R ICA aneurysm transferred to [facility]. DCA pipeline an coil embolization was done Other Imaging/Data Clinical Exam: Drips (current): integrillin Temp: [97.4 F (36.3 C)-98 F (36.7 C)] 98 F (36.7 C) Pulse (Heart Rate): [56-76] 73 Resp Rate: [16-24] 20 BP: (126-160)/(57-77) 155/67 Arterial Line (1) BP: (135-157)/(47-75) 140/60 O2 Sat (%): [95 %-99 %] 96 % Weight: [89.5 kg (197 lb 5 oz)-95.7 kg (210 lb 15.7 oz)] 95.7 kg (210 lb 15.7 oz) Systemic Exam: GENERAL: Alert, no acute distress HEENT: normocephalic, no scalp wounds nor lesions CARDIO: +S1S2, RRR, no m/r/g, no edema PULM: clear o auscultation bilaterally, equal chest rise; ABDOMINAL: soft, nontender, nondistended, active bowel sounds EXTREMITIES: no wounds or lesions VASCULAR: + distal pulses, capillary refill <3 seconds Neurologic Exam: [place] Coma Scale: E: Opens spontaneously:4 V: Oriented (+5) M: Obeys commands (+6) Total: 15 Mental Status: alert Orientation: oriented to person, place, and time/date 0=No aphasia, normal Cranial Nerves: Blink to threat present bilaterally Pupils: FANI Extraocular movements: intact Corneal reflex: present bilaterally Face: symmetric bilaterally Cough & gag reflex: present Motor exam: grossly normal NEUROLOGIC: Assessment: Large thrombosed ICA aneurysm s/p coil embolization and Pipeline placement Plan: -SBP<160 -Frequent Neurochecks q1h -Integrilin drip flat rate until the morning -Birilntia 150 mg load tonight and restart home Eliquis -If exam worsening please obtain stat CTH head -Pt/OT -PULP GRINDER FEEDER -tight glycemic control PAIN, SEDATION: Plan: Analgesia: oxy prn Sedation: avoid Mobilization: OOB RESPIRATORY: Data: On mechanical ventilation: no Vent setting: Oxygen Therapy O2 Sat (%): 96 % O2 Device: room air Oxygen Delivery/Consumption Hemodynamics BSA (Calculated - sq m): 1.97 m2 Secretions: - Assessment: No Current Issues Plan: Du-nebs PRN CPT PRN Spo2>92 ABG prn CXR prn CARDIOVASCULAR: Data: Adv Hemodynamic Monitoring (24-h): Assessment: HTN AFIB Plan: SBP<160 Labetalol and hydralazine rpn Restart eliquis RENAL/ FLUIDS / ELECTROLYTES:: IV fluid: NS@ 75 cc,hr Recent Labs 05/30/23 0604 SODIUM 142 POTASSIUM 4.3 CHLORIDE 108 CO2 24 BUN 10 CREATSERUM 0.67 MAGNESIUM 2.0 PHOSPHORUS 3.5 I/O last 3 completed shifts: In: 1000 [I.V.:1000] Out: 1050 [Urine:1050] UOP ml/kg/hr Assessment: No acute issues Plan: ICU electrolytes replacement Goal Serum K >3.5-4, PO4 >3, Mg >2 AND Ionized CA >1.00 Strict Input AND Output Nurse Driven Paredes Protocol GASTROINTESTINAL/NUTRITION: Data: No results for input(s): ALBUMIN, PREALBUMIN, CRP, BILIDIRECT, BILITOTAL, ALKPHOS, ALT, AST, TP, AMYLASE, LIPASE in the last 72 hours. - DIET REGULAR AAT - Fay Swallow Screening Result: passed=cleared for oral intake Assessment: Obesity - Plan: GI Prophylaxis: no BMI: Body mass index is 35.11 kg/m . - Consult nutrition for malnutrition screening Diet: Taking PO diet Bowel regimen: - Last Bowel Movement: 05/30/23 - Senna, miralax ENDOCRINE: Data: Recent Labs 05/30/23 0604 GLUCOSE 110* Insulin TDD: 0 Assessment: No Current Issues Plan: - Goal blood glucose 140-180 INFECTIOUS DISEASE: Data: Recent Labs 05/30/23 0255 WBC 6.19 - Temp (24hrs), Av.7 F (36.5 C), Min:97.4 F (36.3 C), Max:98 F (36.7 C) Micro: Most recent and positive cultures: Assessment: No active issue Plan: Monitor fever curve and obtain Hickey Cx and CXR if febrile PRN Tylenol for T>100.4F Follow-Up Pending Cultures Antibiotics: none HEMATOLOGIC: Data: Recent Labs 05/30/23 0255 HGB 14.8 HCT 43.7 PLATELET 165 PT 12.6 PTT 28.7 INR 1.0 Last Screening LE U/S Assessment: No Current Issues Plan: DVT Prophylaxis: eliquis Monitor CBC and Coagulation Profile Target Hgb 7-9 G/dL ACTIVE LINES/DRAINS - Patient Lines/Drains/Airways Status Active Lines, Drains, Airways, & Wound Overview Name Placement date Placement time Site Days Peripheral IV Line - Single Lumen forearm, anterior, left 20 gauge -- -- -- -- Peripheral IV Line - Single Lumen 05/30/23 green wrist, posterior, left 18 gauge 05/30/23 -- -- less than 1 Peripheral IV Line - Single Lumen 05/30/23 green wrist, posterior, right 18 gauge 05/30/23 -- -- less than 1 Arterial Line 05/30/23 1559 radial artery, left 20 gauge 05/30/23 1559 -- less than 1 Wound Sheath Site 05/30/23 1545 Right Groin 05/30/23 1545 Groin less than 1 Active Medications: apixaban 5 mg Oral Q12H Atorvastatin 10 mg Oral QHS Brimonidine 1 drop Both Eyes TID calcium acetate - Phos Binder 667 mg Oral TID w/meals Flecainide 50 mg Oral BID Latanoprost 1 drop Both Eyes QHS Metoprolol succinate 50 mg Oral Daily early evening Multivitamin w/ minerals 1 tablet Oral Daily [START ON 05/31/2023] Senna 8.6 mg Oral Daily Or [START ON 05/31/2023] Senna 8.6 mg Per NG tube Daily [START ON 05/31/2023] ticagrelor 90 mg Oral Q12HNS Eptifibatide in diluent 0.5 mcg/kg/min (05/30/230) Sodium chloride 0.9% w/potassium cl 75 mL/hr at 05/30/231909 Sodium chloride 0.9% 1 mL/hr at 05/30/231909 Acetaminophen OR Acetaminophen, Calcium Gluconate OR calcium gluconate, hydrALAZINE OR hydrALAZINE, HYDROmorphone OR HYDROmorphone, Labetalol OR Labetalol, magnesium sulfate, Ondansetron 4mg/2ml, oxyCODONE OR oxyCODONE, Polyethylene glycol OR Polyethylene glycol, potassium chloride OR Potassium chloride OR potassium chloride, Sodium chloride 0.9%, Sodium chloride 0.9%, sodium phosphate OR sodium phosphate Active Problems: Patient Active Problem List Diagnosis Aneurysm DISPOSITION: Stay in the ICU CODE STATUS: Full Code The patient remains in critical condition requiring intensive care This patient is critically ill, unstable and is at high risk of imminent or life threatening deterioration due to large aneurysm s/p pipeline requiring , close neurologic and hemodynamic monitoring. I personally spent 30 minutes in the intensive care unit providing critical care services to the patient today independent of procedures, teaching and other care providers. Management as above was performed. My time managing this critically ill patient included review of interval history, laboratories, radiology and consultation reports; performing a physical examination; discussing the patient with the multi-disciplinary team and managing life sustaining therapies to prevent imminent clinical deterioration. Mounika Siddiqui MD, Division of Neurocritical Care 05/30/2023 11:53 PM NEUROCRITICAL CARE DAILY NOTE HOSPITAL VISIT DEMOGRAPHICS Patient: Ileana Leone Code status: Full Code Admission date: 05/30/2023 1:42 AM Hospital days: LOS: 0 days HISTORY OF PRESENT ILLNESS Ileana Leone is a 67 y.o. female with a past history of afib (on eliquis, last dose AM 05/29), HTN, HLD, and glaucoma. She arrived as a direct admit after receiving an outpatient MRI for evaluation of headaches and vision changes. She was found to have a possible R ICA aneurysm, which was then confirmed by CT/CTA. The aneurysm was not ruptured, but did appear to be filled with a clot. She was transferred to [facility] for a DCA with possible embolization. INTERVAL HISTORY SINCE ADMISSION 05/30/2023: admitted to NCCU PHYSICAL EXAM GENERAL: Alert, no acute distress HEENT: normocephalic, no scalp wounds nor lesions CARDIO: +S1S2, RRR, no m/r/g, no edema PULM: clear to auscultation bilaterally, equal chest rise; ABDOMINAL: soft, nontender, nondistended, active bowel sounds EXTREMITIES: no wounds or lesions VASCULAR: 2+ distal pulses, capillary refill <3 seconds NEURO: Mental status: alert; oriented to person, place, year, and month; good attention Speech/language: fluent; comprehension intact; object naming intact; repetition intact Cranial nerves: CN II: Visual tristan intact to confrontation. PERRL. welt stitch cleaner III, IV and : EOMI. No nystagmus. CN V: Facial sensation intact to light touch. CN VII: Facial strength normal with symmetric movement. CN VIII: Hearing is grossly intact. CN IX and X: Soft palate elevates symmetrically in the midline CN XI: Shoulder shrug and sternocleidomastoid strength 5/5 bilaterally CN XII: Tongue is midline with normal movement; no fasciculations Motor: Normal bulk and tone. No UE drift. Sensation: Extremity sensation intact throughout. Coordination: without ataxia/dysmetria on FTS ASSESSMENT AND PLAN Neuro: (05/30/2023) Day of Surgery s/p R ICA pipeline and R ICA aneurysm coiling R ICA aneurysm - Embolization Management - Monitor neurostatus with neurochecks Q1H - Prevent postop hemorrhage with goal SBP <160 (see cards) - Pre-op imaging: very large large supraclinoid aneurysm measuring 3.1 x 2.1 x 2.8 cm. The area within the neck is 8 mm in width with alot of high flow and filled with clots. There is surrounding edema and mass effect on optic nerve R > L. Also, deformity of floor and anterior foramen of mackay - Postop Imaging: none - continue eliquis and ticagrelor - integrillin gtt - Pain/Sedation management - Tylenol 650mg Q4H PRN - Oxycodone 5mg Q4H PRN - Dilaudid 0.5-1mg Q3H PRN Psych: No Current Issues Pulm: No Current Issues O2 Sat (%): 98 % (05/30 1445) O2 Device: room air (05/30 144) - Goal SpO2 >92%; wean FiO2 as tolerated - AGC8CLD, encourage pulmonary toileting Cards: Essential HTN HLD Afib (on eliquis) Temp: [97.4 F (36.3 C)-98 F (36.7 C)] 98 F (36.7 C) Pulse (Heart Rate): [56-67] 64 Resp Rate: [16-18] 17 BP: (126-160)/(59-76) 160/76 O2 Sat (%): [96 %-98 %] 98 % Weight: [89.5 kg (197 lb 5 oz)] 89.5 kg (197 lb 5 oz) - Goal SBP <160, MAP >65 - PRN labetalol and hydralazine - Continue home metoprolol and flecainide - Statin Therapy: atorvastatin 10mg (simvastatin 10 mg home med) No results for input(s): CHOLESTEROL, TRIG, HDL, LDLDIRECT in the last 72 hours. Renal/: No Current Issues - Fluid Balance: - Goal: euvolemia Intake/Output Summary (Last 24 hours) at 05/30/2023 1809 Last data filed at 05/30/2023 1733 Gross per 24 hour Intake 1000 ml Output 300 ml Net 700 ml - Maintenance: 0.9NS w/ 20 KCl @ 75mL/hr - Daily Chem 10; electrolytes replaced per NCCU protocol Recent Labs 05/30/23 0604 SODIUM 142 POTASSIUM 4.3 CHLORIDE 108 CO2 24 BUN 10 CREATSERUM 0.67 MAGNESIUM 2.0 PHOSPHORUS 3.5 GI/Nutrition: Obesity No results for input(s): ALBUMIN, BILIDIRECT, BILITOTAL, ALKPHOS, ALT, AST, TP, AMYLASE, LIPASE in the last 72 hours. - DIET NPO with meds AAT - [place] Swallow Screening Result: postpone until no longer NPO for other medical/surgical reasons - Bowel regimen: - Last Bowel Movement: 05/30/23 - Senna, miralax Endo: No Current Issues - Goal blood glucose 140-180 Recent Labs 05/30/23 0604 GLUCOSE 110* ID: No Current Issues Recent Labs 05/30/23 0255 WBC 6.19 - Temp (24hrs), Av.6 F (36.4 C), Min:97.4 F (36.3 C), Max:98 F (36.7 C) - PRN Tylenol for T>100.4F - Most recent and positive cultures: Date Collected Source Result Date Finalized 05/30 Staph nasal swab P - Antiinfectives: Start Date Antiinfective Coverage Course Length Stop Date Heme/Onc: No Current Issues Recent Labs 05/30/23 0255 WBC 6.19 RBC 5.11* HGB 14.8 HCT 43.7 PLATELET 165 PT 12.6 PTT 28.7 INR 1.0 - Goal plt >100, INR <1.4, Hgb >7 - OR EBL: minimal - OR Blood products given: none Musc: No Current Issues - PT/OT consulted and following - Current Activity Order: AAT Social/Dispo: - Code status: Full Code - - HCPOA/LNOK: - 05/30: Updated patient at bedside - 05/30: Medications reconciled - Discharge planning per PCRM/SW. Complexity Hyperphosphatemia - Continue phosphate binder. Obesity Body mass index is 32.83 kg/m . - Follow with PCP for dietary and lifestyle modifications. Any conditions listed below are present on admission unless otherwise specified. ICU Checklist: [ ] CAM-ICU [ ] ICU Diary daily [ ] SAT [ ] SBT [ ] DVT ppx; [ ] SCDs; [ ] Lovenox, [ ] heparin, eliquis, ticagrelor, integrillin [ ] Stress ulcer prophylaxis: - Lines/Tubes: [place]: inserted 05/30, (indication:hemodynamic monitoring) CVC: inserted / , (indication: ) Paredes: inserted / , (indication: ) Rectal tube: inserted / , (indication: ) Enteral access: inserted / , [ ] gastric; [ ] post-pyloric Discussed with NCCU Attending, SEAN Garcia Service pager: [phone] Service [place] #: [phone] (Beds [phone] and beds), [place] #: [phone] (Beds [phone] and [facility] beds) 05/30/23 4:09 PM INGOT CASTER consulted to complete Social Determinants of Health Screening (SDOH). Patient reports she actually has been able to pay her mortgage. Patient expresses confusion as to need for SDOH screening and reports she is safe, able to meet her basic needs, and declined resources for mortgage assistance. Nelli Salvador Medical Social Work documented in this encounter [facility] 05-30-2023 Nurse Note On admission to [facility], from [place] a dual RN initial assessment of skin condition was performed by Chaparrita Manzo RN and Viviana Esteves. Skin Assessment: Skin within defined limits:Yes Rusty Score: 21 LDA Added:No [facility] Miscellaneous Notes On admission to [facility], from [place] a dual RN initial assessment of skin condition was performed by Chaparrita Manzo RN and Viviana Esteves. Skin Assessment: Skin within defined limits:Yes Rusty Score: 21 LDA Added:No Chaparrita Manzo RN On admission to [facility], from [place] a dual RN initial assessment of skin condition was performed by Hannah Ealry RN and Chaparrita Manzo RN. Skin Assessment: Skin within defined limits:Yes Rusty Score: 21 LDA Added:No Hannah Early RN Operative Report DATE PERFORMED: 05/30/2023 1. Left subclavian artery arteriogram. 2. Left vertebral artery arteriogram. 3. Left common carotid artery arteriogram. 4. Left external carotid artery arteriogram. 5. Left internal carotid artery arteriogram. 6. Right common carotid artery arteriogram. 7. Right external carotid artery arteriogram. 8. Right internal carotid artery arteriogram. 9. Three-dimensional rotation arteriogram analyzed on dependent workstation. 10. 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 11. Postprocedural right internal carotid artery arteriogram. 12. Right femoral artery arteriogram. HISTORY OF PRESENT ILLNESS: This is a 67-year-old female with no significant past medical history who had headache with progressive blindness. She underwent an imaging study that demonstrated a large right supraclinoid ICA aneurysm that was compressing neural structures. She was transferred from the outside hospital and brought to [facility] for definitive treatment of a symptomatic right supraclinoid ICA aneurysm. SURGEON(S): Ji Villa MD, PhD. SUPPLIER MANAGER: Gema Tovar MD. ANESTHESIA: General. DESCRIPTION OF PROCEDURE: Briefly, the patient was brought into the operating room where she was transferred onto the operative bed. She was intubated without difficulty. All vascular access was placed by Anesthesia. She had SCDs placed on her legs. The right groin was prepped and draped in a sterile fashion. A time-out occurred to verify correct patient and procedure. The right femoral artery was accessed with a micropuncture device, and a 6-Afghan short sheath was placed. The 6-Afghan short sheath was exchanged for a 6-Afghan Shuttle sheath. Through the 6-Afghan Shuttle sheath, a 5-Afghan Sim 2 selector was advanced over the aortic arch, reformatted, and advanced into the left subclavian artery, and a left subclavian artery arteriogram was performed. The catheter was advanced into the left vertebral artery, and a left vertebral artery arteriogram was performed. The catheter was withdrawn and advanced into the left common carotid artery, and a left common carotid artery arteriogram was performed. The catheter was advanced into the left internal carotid artery, and a left internal carotid artery arteriogram was performed. The catheter was withdrawn and advanced into the left external carotid artery, and a left external carotid artery arteriogram was performed. The catheter was withdrawn and advanced into the right common carotid artery, and a right common carotid artery arteriogram was performed. The catheter was advanced into the right external carotid artery, and a right external carotid artery arteriogram was performed. The catheter was withdrawn and advanced into the right internal carotid artery, and a right internal carotid artery arteriogram was performed. A 3-dimensional rotation arteriogram was performed and analyzed on independent workstation. After getting the appropriate views, an [place] 10 microcatheter was advanced through an 0.072 Navien, which in turn was advanced through the shuttle sheath over a Synchro 2 soft wire such that the [place] 10 microcatheter was in the aneurysm itself. Next, a Phenom 0.027 microcatheter was advanced over a Synchro 2 soft wire into the right middle cerebral artery. The patient then received a bolus injection of Integrilin at a dose of 90 mcg/kg. After waiting 7 minutes, a 4 x 18 pipeline shield flow diversion stent was then deployed from the level of the most proximal portion of the right middle cerebral artery to the level of the proximal segment of the horizontal segment over the horizontal right cavernous carotid artery. After deployment, we then turned our attention to the coiled catheter in the aneurysm, and an EV3, 3D 10 x 20 cm coil was deployed. The following coils were then deployed sequentially: EV3, 3D 10 x 30 cm. The microcatheter was then removed. After both microcatheters had been removed, a postprocedural right internal carotid artery arteriogram was performed. A postprocedural right internal carotid artery cerebral arteriogram was performed. The catheter system was removed, and a 6-Afghan Shuttle sheath was exchanged for a 6-Afghan short sheath. A right femoral artery arteriogram was performed through the 6-Afghan short sheath. The 6-Afghan short sheath was removed, and hemostasis was obtained with a 6-Afghan Celt device. FINDINGS: The left subclavian artery arteriogram demonstrated antegrade filling of the left subclavian artery with wide opacification of the vertebral artery. The left vertebral artery arteriogram demonstrated antegrade filling of the posterior circulation with reflux down the contralateral vertebral artery. The capillary and venous phases were unremarkable. There was no evidence of aneurysm or AVM. The left common carotid artery arteriogram demonstrated antegrade filling of the common, internal, and external carotid arteries. There was no evidence of carotid stenosis. The left external carotid artery arteriogram demonstrated antegrade filling of the extracranial circulation. The capillary and venous phases were unremarkable. There was no evidence of aneurysm or AVM. The left internal carotid artery arteriogram demonstrated antegrade filling of the anterior and middle cerebral arteries with opacification across the anterior communicating artery to the contralateral LEANDRO circulation. The capillary and venous phases were otherwise unremarkable. There was no evidence of opacification from the right-sided aneurysm or from the left anterior circulation. Both anterior cerebral arteries were supplied from the left side. The right common carotid artery arteriogram demonstrated antegrade filling of the common, internal, and external carotid arteries. There was no evidence of carotid stenosis. The right external carotid artery arteriogram demonstrated antegrade filling of the extracranial circulation. There was subtle extracranial to intracranial anastomosis demonstrating scant opacification of the most distal aspects of the aneurysm. The right internal carotid artery arteriogram demonstrated antegrade filling of the anterior and middle cerebral arteries. There was a large aneurysm. While the CT angiogram demonstrated a greater than 3 cm aneurysm, the opacifying portion of this aneurysm was 18.7 in length with a dome width of 11 mm with an opening of approximately 8 mm. The pipeline flow diversion stent was deployed as described above. The coil embolization was performed as described above. A postprocedural right internal carotid artery arteriogram demonstrated antegrade filling of the anterior and middle cerebral arteries. There was no significant opacification of the aneurysm dome. There was scant opacification of the base of the aneurysm. There was wide opacification to the pipeline flow diversion stent. There was no evidence of acute thrombosis. The right femoral artery arteriogram demonstrated antegrade filling of the common femoral artery at the puncture site above the level of bifurcation. COMPLICATIONS: None. DISPOSITION: Stable to the ICU. IMPRESSION: 1. 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 2. Wide opacification of the pipeline flow diversion stent in all parent vessels with significant treatment effect of the aneurysm after coiling and pipeline flow diversion stenting. Dictated By: Ji Villa MD, PHD Ji Villa MD, PHD ATTENDING [facility] JOB: [id number] DOC: [id number] Jill RAMEY Damate: [id number] Vasu [id number] Pt arrived from OSH. Can you place orders. Thanks, Nickie Borjas RN documented in this encounter [facility] 05-30-2023 Nurse Note On admission to [facility], from [place] a dual RN initial assessment of skin condition was performed by Hannah Early RN and Chaparrita Manzo RN. Skin Assessment: Skin within defined limits:Yes Rusty Score: 21 LDA Added:No [facility] Surgery Postoperative evaluation and management note Operative Report DATE PERFORMED: 05/30/2023 1. Left subclavian artery arteriogram. 2. Left vertebral artery arteriogram. 3. Left common carotid artery arteriogram. 4. Left external carotid artery arteriogram. 5. Left internal carotid artery arteriogram. 6. Right common carotid artery arteriogram. 7. Right external carotid artery arteriogram. 8. Right internal carotid artery arteriogram. 9. Three-dimensional rotation arteriogram analyzed on dependent workstation. 10. 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 11. Postprocedural right internal carotid artery arteriogram. 12. Right femoral artery arteriogram. HISTORY OF PRESENT ILLNESS: This is a 67-year-old female with no significant past medical history who had headache with progressive blindness. She underwent an imaging study that demonstrated a large right supraclinoid ICA aneurysm that was compressing neural structures. She was transferred from the outside hospital and brought to [facility] for definitive treatment of a symptomatic right supraclinoid ICA aneurysm. SURGEON(S): Ji Villa MD, PhD. SUPPLIER MANAGER: Gema Tovar MD. ANESTHESIA: General. DESCRIPTION OF PROCEDURE: Briefly, the patient was brought into the operating room where she was transferred onto the operative bed. She was intubated without difficulty. All vascular access was placed by Anesthesia. She had SCDs placed on her legs. The right groin was prepped and draped in a sterile fashion. A time-out occurred to verify correct patient and procedure. The right femoral artery was accessed with a micropuncture device, and a 6-Afghan short sheath was placed. The 6-Afghan short sheath was exchanged for a 6-Afghan Shuttle sheath. Through the 6-Afghan Shuttle sheath, a 5-Afghan Sim 2 selector was advanced over the aortic arch, reformatted, and advanced into the left subclavian artery, and a left subclavian artery arteriogram was performed. The catheter was advanced into the left vertebral artery, and a left vertebral artery arteriogram was performed. The catheter was withdrawn and advanced into the left common carotid artery, and a left common carotid artery arteriogram was performed. The catheter was advanced into the left internal carotid artery, and a left internal carotid artery arteriogram was performed. The catheter was withdrawn and advanced into the left external carotid artery, and a left external carotid artery arteriogram was performed. The catheter was withdrawn and advanced into the right common carotid artery, and a right common carotid artery arteriogram was performed. The catheter was advanced into the right external carotid artery, and a right external carotid artery arteriogram was performed. The catheter was withdrawn and advanced into the right internal carotid artery, and a right internal carotid artery arteriogram was performed. A 3-dimensional rotation arteriogram was performed and analyzed on independent workstation. After getting the appropriate views, an [place] 10 microcatheter was advanced through an 0.072 Navien, which in turn was advanced through the shuttle sheath over a Synchro 2 soft wire such that the [place] 10 microcatheter was in the aneurysm itself. Next, a Phenom 0.027 microcatheter was advanced over a Synchro 2 soft wire into the right middle cerebral artery. The patient then received a bolus injection of Integrilin at a dose of 90 mcg/kg. After waiting 7 minutes, a 4 x 18 pipeline shield flow diversion stent was then deployed from the level of the most proximal portion of the right middle cerebral artery to the level of the proximal segment of the horizontal segment over the horizontal right cavernous carotid artery. After deployment, we then turned our attention to the coiled catheter in the aneurysm, and an EV3, 3D 10 x 20 cm coil was deployed. The following coils were then deployed sequentially: EV3, 3D 10 x 30 cm. The microcatheter was then removed. After both microcatheters had been removed, a postprocedural right internal carotid artery arteriogram was performed. A postprocedural right internal carotid artery cerebral arteriogram was performed. The catheter system was removed, and a 6-Afghan Shuttle sheath was exchanged for a 6-Afghan short sheath. A right femoral artery arteriogram was performed through the 6-Afghan short sheath. The 6-Afghan short sheath was removed, and hemostasis was obtained with a 6-Afghan Celt device. FINDINGS: The left subclavian artery arteriogram demonstrated antegrade filling of the left subclavian artery with wide opacification of the vertebral artery. The left vertebral artery arteriogram demonstrated antegrade filling of the posterior circulation with reflux down the contralateral vertebral artery. The capillary and venous phases were unremarkable. There was no evidence of aneurysm or AVM. The left common carotid artery arteriogram demonstrated antegrade filling of the common, internal, and external carotid arteries. There was no evidence of carotid stenosis. The left external carotid artery arteriogram demonstrated antegrade filling of the extracranial circulation. The capillary and venous phases were unremarkable. There was no evidence of aneurysm or AVM. The left internal carotid artery arteriogram demonstrated antegrade filling of the anterior and middle cerebral arteries with opacification across the anterior communicating artery to the contralateral LEANDRO circulation. The capillary and venous phases were otherwise unremarkable. There was no evidence of opacification from the right-sided aneurysm or from the left anterior circulation. Both anterior cerebral arteries were supplied from the left side. The right common carotid artery arteriogram demonstrated antegrade filling of the common, internal, and external carotid arteries. There was no evidence of carotid stenosis. The right external carotid artery arteriogram demonstrated antegrade filling of the extracranial circulation. There was subtle extracranial to intracranial anastomosis demonstrating scant opacification of the most distal aspects of the aneurysm. The right internal carotid artery arteriogram demonstrated antegrade filling of the anterior and middle cerebral arteries. There was a large aneurysm. While the CT angiogram demonstrated a greater than 3 cm aneurysm, the opacifying portion of this aneurysm was 18.7 in length with a dome width of 11 mm with an opening of approximately 8 mm. The pipeline flow diversion stent was deployed as described above. The coil embolization was performed as described above. A postprocedural right internal carotid artery arteriogram demonstrated antegrade filling of the anterior and middle cerebral arteries. There was no significant opacification of the aneurysm dome. There was scant opacification of the base of the aneurysm. There was wide opacification to the pipeline flow diversion stent. There was no evidence of acute thrombosis. The right femoral artery arteriogram demonstrated antegrade filling of the common femoral artery at the puncture site above the level of bifurcation. COMPLICATIONS: None. DISPOSITION: Stable to the ICU. IMPRESSION: 1. 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 2. Wide opacification of the pipeline flow diversion stent in all parent vessels with significant treatment effect of the aneurysm after coiling and pipeline flow diversion stenting. Dictated By: Ji Villa MD, PHD Ji Villa MD, PHD ATTENDING [facility] JOB: [id number] DOC: [id number] [facility] Work Phone: 05-30-2023 Nurse Note Jill RAMEY Damate: [id number] Vasu [id number] Pt arrived from [facility]. Can you place orders. Thanks, Nickie Borjas RN [facility] Evaluation note Diagnosis Onset Date Essential (primary) hypertension chronic Hyperlipidemia chronic Paroxysmal atrial fibrillation chronic [facility] Work Phone: Evaluation note* Diagnosis Aneurysm- Primary Aneurysm of unspecified site [facility] information [facility] Work Phone: Evaluation note* Diagnosis Aneurysm- Primary Aneurysm of unspecified site Obesity (BMI 30.0-34.9) Obesity, unspecified Visual disturbance- Primary Unspecified visual disturbance Nonruptured cerebral aneurysm, internal carotid artery, intracranial portion Cerebral aneurysm, nonruptured Acute nonintractable headache, unspecified headache type Optic neuropathy Other optic neuritis Brain aneurysm Cerebral aneurysm, nonruptured [facility] Diagnosis Aneurysm- Primary Aneurysm of unspecified site Obesity (BMI 30.0-34.9) Obesity, unspecified Cerebral aneurysm, nonruptured Aneurysm Aneurysm of unspecified site Obesity (BMI 30.0-34.9) Obesity, unspecified Brain aneurysm Cerebral aneurysm, nonruptured [facility] Diagnosis Encounter for follow-up Cerebral aneurysm, nonruptured [facility] Diagnosis Encounter for follow-up- Primary Cerebral aneurysm, nonruptured [facility] Diagnosis Cerebral aneurysm, nonruptured- Primary documented in this encounter [facility] note* Diagnosis Brain aneurysm- Primary Cerebral aneurysm, nonruptured documented in this encounter [facility] note* Diagnosis Cerebral aneurysm, nonruptured- Primary documented in this encounter [facility] note* Diagnosis Cerebral aneurysm, nonruptured documented in this encounter [facility] note* Diagnosis Brain aneurysm- Primary Cerebral aneurysm, nonruptured documented in this encounter [facility] note* Diagnosis Confusion- Primary Unspecified psychosis Memory loss Personality change Personality change due to conditions classified elsewhere documented in this encounter [facility] note* Diagnosis Cerebral aneurysm, nonruptured documented in this encounter [facility] note* Diagnosis Aneurysm- Primary Aneurysm of unspecified site Syncope, unspecified syncope type [facility] Unlisted Procedure Code (Routine) - New Request Specialty Diagnoses / Procedures Referred By Contac t Referred To Contact Procedures NO PHARMACOLOGICAL DVT PROPHYLAXIS Ji Villa MD, PhD [address] [place], [place] [id number] Referral ID Status Reason Start Date Expiration Date V isits Requested Visits Authorized [id number] New Request 05/30/2023 06/23/2024 1 1 * Unlisted Procedure Code (Routine) - New Request Specialty Diagnoses / Procedures Referred By Contac t Referred To Contact Procedures DVT/VTE RISK ASSESSMENT Ji Villa MD, PhD [address] [place] [id number] Referral ID Status Reason Start Date Expiration Date V isits Requested Visits Authorized [id number] New Request 05/30/2023 06/23/2024 1 1 * (Routine) Specialty Diagnoses / Procedures Referred By Contac t Referred To Contact [facility] [address] [place] [address] Referral ID Status Reason Start Date Expiration Date Visits Re quested Visits Authorized * Unlisted Procedure Code (Routine) - New Request Specialty Diagnoses / Procedures Referred By Contac t Referred To Contact Procedures DVT/VTE RISK ASSESSMENT Ji Villa MD, PhD [address] [place] [address] Referral ID Status Reason Start Date Expiration Date V isits Requested Visits Authorized [id number] New Request 05/30/2023 06/23/[address] [facility] for visit Narrative* MRI/CAT Scan (Routine) - Closed Specialty Diagnoses / Procedures Referred By Contac t Referred To Contact Diagnoses Cerebral aneurysm, nonruptured Procedures CT ANGIO BRAIN CHG CT ANGIOGRAPHY HEAD W/CONTRAST/NONCONTRAST Bruce Louise, WILDLIFE PROTECTOR-[employer]UT[employer] CONSULTANT [address] [place] [address] Phone: tel: fax: Referral ID Status Reason Start Date Expiration Date Visits Re quested Visits Authorized [id number] Closed 06/13/2024 06/05/[address] 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 Advance Directives and Living Will Power of Television Cabinet Finisher Advance Directive Response Recorded Date/ Time Name of Medical Power of Television Cabinet Finisher May 29, 2023 7:31pm Advance Directives No April 10:29am Living Will Yes May 29 023 7:31pm Power of Television Cabinet Finisher Yes May 29, 2023 7:31pm Latest Code Status on File Code Status Date Activated Date Inactivated Comments Full Code 05/30/2023 1:49 AM Advance Directive Response Recorded Date/ Time Advance Directives No April 11:29am Living Will No October 09, 2023 9: 18am Power of Television Cabinet Finisher No October 09, 2023 9:18am Date Activated Date Inactivated Comments 05/30/2023 1:49 AM Date Activated Date Inactivated Comments 10/29/2023 4:50 PM Date Activated Date Inactivated Comments 05/30/2023 1:49 AM 10/29/2023 4:50 PM Date Activated Date Inactivated Comments 10/29/2023 4:50 PM Date Activated Date Inactivated Comments 05/30/2023 1:49 AM 10/29/2023 4:50 PM Date Activated Date Inactivated Comments 11/20/2023 2:41 PM Date Activated Date Inactivated Comments 10/29/2023 4:50 PM 11/20/2023 2:41 PM Date Activated Date Inactivated Comments 05/30/2023 1:49 AM 10/29/2023 4:50 PM Date Activated Date Inactivated Comments 11/20/2023 2:41 PM Date Activated Date Inactivated Comments 10/29/2023 4:50 PM 11/20/2023 2:41 PM Date Activated Date Inactivated Comments 05/30/2023 1:49 AM 10/29/2023 4:50 PM Summary Purpose Family History arthritis Status:Active Comments:Mother. grandmother Breast Cancer Status:Active Comments:grandmo ther Cerebrovascular Accident Status:Active Comment s:grandmother Congestive Heart Failure Status:Active Comment s:Paternal Grandmother. Diabetes Mellitus Type II Status:Active Commen ts:Father. Hypertension Status:Active Comments:Mother. Father. Hypothyroidism Status:Active Comments:Sister. Lung Cancer Status:Active Comments:Mother. Relationship Condition Age at Onset Recorded Date/[facility] father Hypertension Unknown Diabetes mellitus Unknown mother Hypertension Unknown Malignant neoplasm Unknown brother Hypertension Unknown arthritis Status:Active Comments:Mother. grandmother Breast Cancer Status:Active Comments:grandmo ther Cerebrovascular Accident Status:Active Comment s:grandmother Congestive Heart Failure Status:Active Comment s:Paternal Grandmother. Diabetes Mellitus Type II Status:Active Commen ts:Father. Hypertension Status:Active Comments:Mother. Father. Hypothyroidism Status:Active Comments:Sister. Lung Cancer Status:Active Comments:Mother. arthritis Status:Active Comments:Mother. grandmother Breast Cancer Status:Active Comments:grandmo ther Cerebrovascular Accident Status:Active Comment s:grandmother Congestive Heart Failure Status:Active Comment s:Paternal Grandmother. Diabetes Mellitus Type II Status:Active Commen ts:Father. Hypertension Status:Active Comments:Mother. Father. Hypothyroidism Status:Active Comments:Sister. Lung Cancer Status:Active Comments:Mother. arthritis Status:Active Comments:Mother. grandmother Breast Cancer Status:Active Comments:grandmo ther Cerebrovascular Accident Status:Active Comment s:grandmother Congestive Heart Failure Status:Active Comment s:Paternal Grandmother. Diabetes Mellitus Type II Status:Active Commen ts:Father. Hypertension Status:Active Comments:Mother. Father. Hypothyroidism Status:Active Comments:Sister. Lung Cancer Status:Active Comments:Mother. arthritis Status:Active Comments:Mother. grandmother Breast Cancer Status:Active Comments:grandmo ther Cerebrovascular Accident Status:Active Comment s:grandmother Congestive Heart Failure Status:Active Comment s:Paternal Grandmother. Diabetes Mellitus Type II Status:Active Commen ts:Father. Hypertension Status:Active Comments:Mother. Father. Hypothyroidism Status:Active Comments:Sister. Lung Cancer Status:Active Comments:Mother. arthritis Status:Active Comments:Mother. grandmother Breast Cancer Status:Active Comments:grandmo ther Cerebrovascular Accident Status:Active Comment s:grandmother Congestive Heart Failure Status:Active Comment s:Paternal Grandmother. Diabetes Mellitus Type II Status:Active Commen ts:Father. Hypertension Status:Active Comments:Mother. Father. Hypothyroidism Status:Active Comments:Sister. Lung Cancer Status:Active Comments:Mother. arthritis Status:Active Comments:Mother. grandmother Breast Cancer Status:Active Comments:grandmo ther Cerebrovascular Accident Status:Active Comment s:grandmother Congestive Heart Failure Status:Active Comment s:Paternal Grandmother. Diabetes Mellitus Type II Status:Active Commen ts:Father. Hypertension Status:Active Comments:Mother. Father. Hypothyroidism Status:Active Comments:Sister. Lung Cancer Status:Active Comments:Mother. arthritis Status:Active Comments:Mother. grandmother Breast Cancer Status:Active Comments:grandmo ther Cerebrovascular Accident Status:Active Comment s:grandmother Congestive Heart Failure Status:Active Comment s:Paternal Grandmother. Diabetes Mellitus Type II Status:Active Commen ts:Father. Hypertension Status:Active Comments:Mother. Father. Hypothyroidism Status:Active Comments:Sister. Lung Cancer Status:Active Comments:Mother. arthritis Status:Active Comments:Mother. grandmother Breast Cancer Status:Active Comments:grandmo ther Cerebrovascular Accident Status:Active Comment s:grandmother Congestive Heart Failure Status:Active Comment s:Paternal Grandmother. Diabetes Mellitus Type II Status:Active Commen ts:Father. Hypertension Status:Active Comments:Mother. Father. Hypothyroidism Status:Active Comments:Sister. Lung Cancer Status:Active Comments:Mother. arthritis Status:Active Comments:Mother. grandmother Breast Cancer Status:Active Comments:grandmo ther Cerebrovascular Accident Status:Active Comment s:grandmother Congestive Heart Failure Status:Active Comment s:Paternal Grandmother. Diabetes Mellitus Type II Status:Active Commen ts:Father. Hypertension Status:Active Comments:Mother. Father. Hypothyroidism Status:Active Comments:Sister. Lung Cancer Status:Active Comments:Mother. arthritis Status:Active Comments:Mother. grandmother Breast Cancer Status:Active Comments:grandmo ther Cerebrovascular Accident Status:Active Comment s:grandmother Congestive Heart Failure Status:Active Comment s:Paternal Grandmother. Diabetes Mellitus Type II Status:Active Commen ts:Father. Hypertension Status:Active Comments:Mother. Father. Hypothyroidism Status:Active Comments:Sister. Lung Cancer Status:Active Comments:Mother. arthritis Status:Active Comments:Mother. grandmother Breast Cancer Status:Active Comments:grandmo ther Cerebrovascular Accident Status:Active Comment s:grandmother Congestive Heart Failure Status:Active Comment s:Paternal Grandmother. Diabetes Mellitus Type II Status:Active Commen ts:Father. Hypertension Status:Active Comments:Mother. Father. Hypothyroidism Status:Active Comments:Sister. Lung Cancer Status:Active Comments:Mother. arthritis Status:Active Comments:Mother. grandmother Breast Cancer Status:Active Comments:grandmo ther Cerebrovascular Accident Status:Active Comment s:grandmother Congestive Heart Failure Status:Active Comment s:Paternal Grandmother. Diabetes Mellitus Type II Status:Active Commen ts:Father. Hypertension Status:Active Comments:Mother. Father. Hypothyroidism Status:Active Comments:Sister. Lung Cancer Status:Active Comments:Mother. arthritis Status:Active Comments:Mother. grandmother Breast Cancer Status:Active Comments:grandmo ther Cerebrovascular Accident Status:Active Comment s:grandmother Congestive Heart Failure Status:Active Comment s:Paternal Grandmother. Diabetes Mellitus Type II Status:Active Commen ts:Father. Hypertension Status:Active Comments:Mother. Father. Hypothyroidism Status:Active Comments:Sister. Lung Cancer Status:Active Comments:Mother. arthritis Status:Active Comments:Mother. grandmother Breast Cancer Status:Active Comments:grandmo ther Cerebrovascular Accident Status:Active Comment s:grandmother Congestive Heart Failure Status:Active Comment s:Paternal Grandmother. Diabetes Mellitus Type II Status:Active Commen ts:Father. Hypertension Status:Active Comments:Mother. Father. Hypothyroidism Status:Active Comments:Sister. Lung Cancer Status:Active Comments:Mother. arthritis Status:Active Comments:Mother. grandmother Breast Cancer Status:Active Comments:grandmo ther Cerebrovascular Accident Status:Active Comment s:grandmother Congestive Heart Failure Status:Active Comment s:Paternal Grandmother. Diabetes Mellitus Type II Status:Active Commen ts:Father. Hypertension Status:Active Comments:Mother. Father. Hypothyroidism Status:Active Comments:Sister. Lung Cancer Status:Active Comments:Mother. arthritis Status:Active Comments:Mother. grandmother Breast Cancer Status:Active Comments:grandmo ther Cerebrovascular Accident Status:Active Comment s:grandmother Congestive Heart Failure Status:Active Comment s:Paternal Grandmother. Diabetes Mellitus Type II Status:Active Commen ts:Father. Hypertension Status:Active Comments:Mother. Father. Hypothyroidism Status:Active Comments:Sister. Lung Cancer Status:Active Comments:Mother. arthritis Status:Active Comments:Mother. grandmother Breast Cancer Status:Active Comments:grandmo ther Cerebrovascular Accident Status:Active Comment s:grandmother Congestive Heart Failure Status:Active Comment s:Paternal Grandmother. Diabetes Mellitus Type II Status:Active Commen ts:Father. Hypertension Status:Active Comments:Mother. Father. Hypothyroidism Status:Active Comments:Sister. Lung Cancer Status:Active Comments:Mother. arthritis Status:Active Comments:Mother. grandmother Breast Cancer Status:Active Comments:grandmo ther Cerebrovascular Accident Status:Active Comment s:grandmother Congestive Heart Failure Status:Active Comment s:Paternal Grandmother. Diabetes Mellitus Type II Status:Active Commen ts:Father. Hypertension Status:Active Comments:Mother. Father. Hypothyroidism Status:Active Comments:Sister. Lung Cancer Status:Active Comments:Mother. arthritis Status:Active Comments:Mother. grandmother Breast Cancer Status:Active Comments:grandmo ther Cerebrovascular Accident Status:Active Comment s:grandmother Congestive Heart Failure Status:Active Comment s:Paternal Grandmother. Diabetes Mellitus Type II Status:Active Commen ts:Father. Hypertension Status:Active Comments:Mother. Father. Hypothyroidism Status:Active Comments:Sister. Lung Cancer Status:Active Comments:Mother. arthritis Status:Active Comments:Mother. grandmother Breast Cancer Status:Active Comments:grandmo ther Cerebrovascular Accident Status:Active Comment s:grandmother Congestive Heart Failure Status:Active Comment s:Paternal Grandmother. Diabetes Mellitus Type II Status:Active Commen ts:Father. Hypertension Status:Active Comments:Mother. Father. Hypothyroidism Status:Active Comments:Sister. Lung Cancer Status:Active Comments:Mother. arthritis Status:Active Comments:Mother. grandmother Breast Cancer Status:Active Comments:grandmo ther Cerebrovascular Accident Status:Active Comment s:grandmother Congestive Heart Failure Status:Active Comment s:Paternal Grandmother. Diabetes Mellitus Type II Status:Active Commen ts:Father. Hypertension Status:Active Comments:Mother. Father. Hypothyroidism Status:Active Comments:Sister. Lung Cancer Status:Active Comments:Mother. arthritis Status:Active Comments:Mother. grandmother Breast Cancer Status:Active Comments:grandmo ther Cerebrovascular Accident Status:Active Comment s:grandmother Congestive Heart Failure Status:Active Comment s:Paternal Grandmother. Diabetes Mellitus Type II Status:Active Commen ts:Father. Hypertension Status:Active Comments:Mother. Father. Hypothyroidism Status:Active Comments:Sister. Lung Cancer Status:Active Comments:Mother. arthritis Status:Active Comments:Mother. grandmother Breast Cancer Status:Active Comments:grandmo ther Cerebrovascular Accident Status:Active Comment s:grandmother Congestive Heart Failure Status:Active Comment s:Paternal Grandmother. Diabetes Mellitus Type II Status:Active Commen ts:Father. Hypertension Status:Active Comments:Mother. Father. Hypothyroidism Status:Active Comments:Sister. Lung Cancer Status:Active Comments:Mother. arthritis Status:Active Comments:Mother. grandmother Breast Cancer Status:Active Comments:grandmo ther Cerebrovascular Accident Status:Active Comment s:grandmother Congestive Heart Failure Status:Active Comment s:Paternal Grandmother. Diabetes Mellitus Type II Status:Active Commen ts:Father. Hypertension Status:Active Comments:Mother. Father. Hypothyroidism Status:Active Comments:Sister. Lung Cancer Status:Active Comments:Mother. arthritis Status:Active Comments:Mother. grandmother Breast Cancer Status:Active Comments:grandmo ther Cerebrovascular Accident Status:Active Comment s:grandmother Congestive Heart Failure Status:Active Comment s:Paternal Grandmother. Diabetes Mellitus Type II Status:Active Commen ts:Father. Hypertension Status:Active Comments:Mother. Father. Hypothyroidism Status:Active Comments:Sister. Lung Cancer Status:Active Comments:Mother. arthritis Status:Active Comments:Mother. grandmother Breast Cancer Status:Active Comments:grandmo ther Cerebrovascular Accident Status:Active Comment s:grandmother Congestive Heart Failure Status:Active Comment s:Paternal Grandmother. Diabetes Mellitus Type II Status:Active Commen ts:Father. Hypertension Status:Active Comments:Mother. Father. Hypothyroidism Status:Active Comments:Sister. Lung Cancer Status:Active Comments:Mother. arthritis Status:Active Comments:Mother. grandmother Breast Cancer Status:Active Comments:grandmo ther Cerebrovascular Accident Status:Active Comment s:grandmother Congestive Heart Failure Status:Active Comment s:Paternal Grandmother. Diabetes Mellitus Type II Status:Active Commen ts:Father. Hypertension Status:Active Comments:Mother. Father. Hypothyroidism Status:Active Comments:Sister. Lung Cancer Status:Active Comments:Mother. arthritis Status:Active Comments:Mother. grandmother Breast Cancer Status:Active Comments:grandmo ther Cerebrovascular Accident Status:Active Comment s:grandmother Congestive Heart Failure Status:Active Comment s:Paternal Grandmother. Diabetes Mellitus Type II Status:Active Commen ts:Father. Hypertension Status:Active Comments:Mother. Father. Hypothyroidism Status:Active Comments:Sister. Lung Cancer Status:Active Comments:Mother. arthritis Status:Active Comments:Mother. grandmother Breast Cancer Status:Active Comments:grandmo ther Cerebrovascular Accident Status:Active Comment s:grandmother Congestive Heart Failure Status:Active Comment s:Paternal Grandmother. Diabetes Mellitus Type II Status:Active Commen ts:Father. Hypertension Status:Active Comments:Mother. Father. Hypothyroidism Status:Active Comments:Sister. Lung Cancer Status:Active Comments:Mother. arthritis Status:Active Comments:Mother. grandmother Breast Cancer Status:Active Comments:grandmo ther Cerebrovascular Accident Status:Active Comment s:grandmother Congestive Heart Failure Status:Active Comment s:Paternal Grandmother. Diabetes Mellitus Type II Status:Active Commen ts:Father. Hypertension Status:Active Comments:Mother. Father. Hypothyroidism Status:Active Comments:Sister. Lung Cancer Status:Active Comments:Mother. arthritis Status:Active Comments:Mother. grandmother Breast Cancer Status:Active Comments:grandmo ther Cerebrovascular Accident Status:Active Comment s:grandmother Congestive Heart Failure Status:Active Comment s:Paternal Grandmother. Diabetes Mellitus Type II Status:Active Commen ts:Father. Hypertension Status:Active Comments:Mother. Father. Hypothyroidism Status:Active Comments:Sister. Lung Cancer Status:Active Comments:Mother. arthritis Status:Active Comments:Mother. grandmother Breast Cancer Status:Active Comments:grandmo ther Cerebrovascular Accident Status:Active Comment s:grandmother Congestive Heart Failure Status:Active Comment s:Paternal Grandmother. Diabetes Mellitus Type II Status:Active Commen ts:Father. Hypertension Status:Active Comments:Mother. Father. Hypothyroidism Status:Active Comments:Sister. Lung Cancer Status:Active Comments:Mother. arthritis Status:Active Comments:Mother. grandmother Breast Cancer Status:Active Comments:grandmo ther Cerebrovascular Accident Status:Active Comment s:grandmother Congestive Heart Failure Status:Active Comment s:Paternal Grandmother. Diabetes Mellitus Type II Status:Active Commen ts:Father. Hypertension Status:Active Comments:Mother. Father. Hypothyroidism Status:Active Comments:Sister. Lung Cancer Status:Active Comments:Mother. arthritis Status:Active Comments:Mother. grandmother Breast Cancer Status:Active Comments:grandmo ther Cerebrovascular Accident Status:Active Comment s:grandmother Congestive Heart Failure Status:Active Comment s:Paternal Grandmother. Diabetes Mellitus Type II Status:Active Commen ts:Father. Hypertension Status:Active Comments:Mother. Father. Hypothyroidism Status:Active Comments:Sister. Lung Cancer Status:Active Comments:Mother. arthritis Status:Active Comments:Mother. grandmother Breast Cancer Status:Active Comments:grandmo ther Cerebrovascular Accident Status:Active Comment s:grandmother Congestive Heart Failure Status:Active Comment s:Paternal Grandmother. Diabetes Mellitus Type II Status:Active Commen ts:Father. Hypertension Status:Active Comments:Mother. Father. Hypothyroidism Status:Active Comments:Sister. Lung Cancer Status:Active Comments:Mother. arthritis Status:Active Comments:Mother. grandmother Breast Cancer Status:Active Comments:grandmo ther Cerebrovascular Accident Status:Active Comment s:grandmother Congestive Heart Failure Status:Active Comment s:Paternal Grandmother. Diabetes Mellitus Type II Status:Active Commen ts:Father. Hypertension Status:Active Comments:Mother. Father. Hypothyroidism Status:Active Comments:Sister. Lung Cancer Status:Active Comments:Mother. arthritis Status:Active Comments:Mother. grandmother Breast Cancer Status:Active Comments:grandmo ther Cerebrovascular Accident Status:Active Comment s:grandmother Congestive Heart Failure Status:Active Comment s:Paternal Grandmother. Diabetes Mellitus Type II Status:Active Commen ts:Father. Hypertension Status:Active Comments:Mother. Father. Hypothyroidism Status:Active Comments:Sister. Lung Cancer Status:Active Comments:Mother. arthritis Status:Active Comments:Mother. grandmother Breast Cancer Status:Active Comments:grandmo ther Cerebrovascular Accident Status:Active Comment s:grandmother Congestive Heart Failure Status:Active Comment s:Paternal Grandmother. Diabetes Mellitus Type II Status:Active Commen ts:Father. Hypertension Status:Active Comments:Mother. Father. Hypothyroidism Status:Active Comments:Sister. Lung Cancer Status:Active Comments:Mother. arthritis Status:Active Comments:Mother. grandmother Breast Cancer Status:Active Comments:grandmo ther Cerebrovascular Accident Status:Active Comment s:grandmother Congestive Heart Failure Status:Active Comment s:Paternal Grandmother. Diabetes Mellitus Type II Status:Active Commen ts:Father. Hypertension Status:Active Comments:Mother. Father. Hypothyroidism Status:Active Comments:Sister. Lung Cancer Status:Active Comments:Mother. arthritis Status:Active Comments:Mother. grandmother Breast Cancer Status:Active Comments:grandmo ther Cerebrovascular Accident Status:Active Comment s:grandmother Congestive Heart Failure Status:Active Comment s:Paternal Grandmother. Diabetes Mellitus Type II Status:Active Commen ts:Father. Hypertension Status:Active Comments:Mother. Father. Hypothyroidism Status:Active Comments:Sister. Lung Cancer Status:Active Comments:Mother. arthritis Status:Active Comments:Mother. grandmother Breast Cancer Status:Active Comments:grandmo ther Cerebrovascular Accident Status:Active Comment s:grandmother Congestive Heart Failure Status:Active Comment s:Paternal Grandmother. Diabetes Mellitus Type II Status:Active Commen ts:Father. Hypertension Status:Active Comments:Mother. Father. Hypothyroidism Status:Active Comments:Sister. Lung Cancer Status:Active Comments:Mother. arthritis Status:Active Comments:Mother. grandmother Breast Cancer Status:Active Comments:grandmo ther Cerebrovascular Accident Status:Active Comment s:grandmother Congestive Heart Failure Status:Active Comment s:Paternal Grandmother. Diabetes Mellitus Type II Status:Active Commen ts:Father. Hypertension Status:Active Comments:Mother. Father. Hypothyroidism Status:Active Comments:Sister. Lung Cancer Status:Active Comments:Mother. arthritis Status:Active Comments:Mother. grandmother Breast Cancer Status:Active Comments:grandmo ther Cerebrovascular Accident Status:Active Comment s:grandmother Congestive Heart Failure Status:Active Comment s:Paternal Grandmother. Diabetes Mellitus Type II Status:Active Commen ts:Father. Hypertension Status:Active Comments:Mother. Father. Hypothyroidism Status:Active Comments:Sister. Lung Cancer Status:Active Comments:Mother. arthritis Status:Active Comments:Mother. grandmother Breast Cancer Status:Active Comments:grandmo ther Cerebrovascular Accident Status:Active Comment s:grandmother Congestive Heart Failure Status:Active Comment s:Paternal Grandmother. Diabetes Mellitus Type II Status:Active Commen ts:Father. Hypertension Status:Active Comments:Mother. Father. Hypothyroidism Status:Active Comments:Sister. Lung Cancer Status:Active Comments:Mother. arthritis Status:Active Comments:Mother. grandmother Breast Cancer Status:Active Comments:grandmo ther Cerebrovascular Accident Status:Active Comment s:grandmother Congestive Heart Failure Status:Active Comment s:Paternal Grandmother. Diabetes Mellitus Type II Status:Active Commen ts:Father. Hypertension Status:Active Comments:Mother. Father. Hypothyroidism Status:Active Comments:Sister. Lung Cancer Status:Active Comments:Mother. arthritis Status:Active Comments:Mother. grandmother Breast Cancer Status:Active Comments:grandmo ther Cerebrovascular Accident Status:Active Comment s:grandmother Congestive Heart Failure Status:Active Comment s:Paternal Grandmother. Diabetes Mellitus Type II Status:Active Commen ts:Father. Hypertension Status:Active Comments:Mother. Father. Hypothyroidism Status:Active Comments:Sister. Lung Cancer Status:Active Comments:Mother. arthritis Status:Active Comments:Mother. grandmother Breast Cancer Status:Active Comments:grandmo ther Cerebrovascular Accident Status:Active Comment s:grandmother Congestive Heart Failure Status:Active Comment s:Paternal Grandmother. Diabetes Mellitus Type II Status:Active Commen ts:Father. Hypertension Status:Active Comments:Mother. Father. Hypothyroidism Status:Active Comments:Sister. Lung Cancer Status:Active Comments:Mother. arthritis Status:Active Comments:Mother. grandmother Breast Cancer Status:Active Comments:grandmo ther Cerebrovascular Accident Status:Active Comment s:grandmother Congestive Heart Failure Status:Active Comment s:Paternal Grandmother. Diabetes Mellitus Type II Status:Active Commen ts:Father. Hypertension Status:Active Comments:Mother. Father. Hypothyroidism Status:Active Comments:Sister. Lung Cancer Status:Active Comments:Mother. arthritis Status:Active Comments:Mother. grandmother Breast Cancer Status:Active Comments:grandmo ther Cerebrovascular Accident Status:Active Comment s:grandmother Congestive Heart Failure Status:Active Comment s:Paternal Grandmother. Diabetes Mellitus Type II Status:Active Commen ts:Father. Hypertension Status:Active Comments:Mother. Father. Hypothyroidism Status:Active Comments:Sister. Lung Cancer Status:Active Comments:Mother. arthritis Status:Active Comments:Mother. grandmother Breast Cancer Status:Active Comments:grandmo ther Cerebrovascular Accident Status:Active Comment s:grandmother Congestive Heart Failure Status:Active Comment s:Paternal Grandmother. Diabetes Mellitus Type II Status:Active Commen ts:Father. Hypertension Status:Active Comments:Mother. Father. Hypothyroidism Status:Active Comments:Sister. Lung Cancer Status:Active Comments:Mother. arthritis Status:Active Comments:Mother. grandmother Breast Cancer Status:Active Comments:grandmo ther Cerebrovascular Accident Status:Active Comment s:grandmother Congestive Heart Failure Status:Active Comment s:Paternal Grandmother. Diabetes Mellitus Type II Status:Active Commen ts:Father. Hypertension Status:Active Comments:Mother. Father. Hypothyroidism Status:Active Comments:Sister. Lung Cancer Status:Active Comments:Mother. arthritis Status:Active Comments:Mother. grandmother Breast Cancer Status:Active Comments:grandmo ther Cerebrovascular Accident Status:Active Comment s:grandmother Congestive Heart Failure Status:Active Comment s:Paternal Grandmother. Diabetes Mellitus Type II Status:Active Commen ts:Father. Hypertension Status:Active Comments:Mother. Father. Hypothyroidism Status:Active Comments:Sister. Lung Cancer Status:Active Comments:Mother. arthritis Status:Active Comments:Mother. grandmother Breast Cancer Status:Active Comments:grandmo ther Cerebrovascular Accident Status:Active Comment s:grandmother Congestive Heart Failure Status:Active Comment s:Paternal Grandmother. Diabetes Mellitus Type II Status:Active Commen ts:Father. Hypertension Status:Active Comments:Mother. Father. Hypothyroidism Status:Active Comments:Sister. Lung Cancer Status:Active Comments:Mother. arthritis Status:Active Comments:Mother. grandmother Breast Cancer Status:Active Comments:grandmo ther Cerebrovascular Accident Status:Active Comment s:grandmother Congestive Heart Failure Status:Active Comment s:Paternal Grandmother. Diabetes Mellitus Type II Status:Active Commen ts:Father. Hypertension Status:Active Comments:Mother. Father. Hypothyroidism Status:Active Comments:Sister. Lung Cancer Status:Active Comments:Mother. arthritis Status:Active Comments:Mother. grandmother Breast Cancer Status:Active Comments:grandmo ther Cerebrovascular Accident Status:Active Comment s:grandmother Congestive Heart Failure Status:Active Comment s:Paternal Grandmother. Diabetes Mellitus Type II Status:Active Commen ts:Father. Hypertension Status:Active Comments:Mother. Father. Hypothyroidism Status:Active Comments:Sister. Lung Cancer Status:Active Comments:Mother. arthritis Status:Active Comments:Mother. grandmother Breast Cancer Status:Active Comments:grandmo ther Cerebrovascular Accident Status:Active Comment s:grandmother Congestive Heart Failure Status:Active Comment s:Paternal Grandmother. Diabetes Mellitus Type II Status:Active Commen ts:Father. Hypertension Status:Active Comments:Mother. Father. Hypothyroidism Status:Active Comments:Sister. Lung Cancer Status:Active Comments:Mother. arthritis Status:Active Comments:Mother. grandmother Breast Cancer Status:Active Comments:grandmo ther Cerebrovascular Accident Status:Active Comment s:grandmother Congestive Heart Failure Status:Active Comment s:Paternal Grandmother. Diabetes Mellitus Type II Status:Active Commen ts:Father. Hypertension Status:Active Comments:Mother. Father. Hypothyroidism Status:Active Comments:Sister. Lung Cancer Status:Active Comments:Mother. arthritis Status:Active Comments:Mother. grandmother Breast Cancer Status:Active Comments:grandmo ther Cerebrovascular Accident Status:Active Comment s:grandmother Congestive Heart Failure Status:Active Comment s:Paternal Grandmother. Diabetes Mellitus Type II Status:Active Commen ts:Father. Hypertension Status:Active Comments:Mother. Father. Hypothyroidism Status:Active Comments:Sister. Lung Cancer Status:Active Comments:Mother. arthritis Status:Active Comments:Mother. grandmother Breast Cancer Status:Active Comments:grandmo ther Cerebrovascular Accident Status:Active Comment s:grandmother Congestive Heart Failure Status:Active Comment s:Paternal Grandmother. Diabetes Mellitus Type II Status:Active Commen ts:Father. Hypertension Status:Active Comments:Mother. Father. Hypothyroidism Status:Active Comments:Sister. Lung Cancer Status:Active Comments:Mother. arthritis Status:Active Comments:Mother. grandmother Breast Cancer Status:Active Comments:grandmo ther Cerebrovascular Accident Status:Active Comment s:grandmother Congestive Heart Failure Status:Active Comment s:Paternal Grandmother. Diabetes Mellitus Type II Status:Active Commen ts:Father. Hypertension Status:Active Comments:Mother. Father. Hypothyroidism Status:Active Comments:Sister. Lung Cancer Status:Active Comments:Mother. arthritis Status:Active Comments:Mother. grandmother Breast Cancer Status:Active Comments:grandmo ther Cerebrovascular Accident Status:Active Comment s:grandmother Congestive Heart Failure Status:Active Comment s:Paternal Grandmother. Diabetes Mellitus Type II Status:Active Commen ts:Father. Hypertension Status:Active Comments:Mother. Father. Hypothyroidism Status:Active Comments:Sister. Lung Cancer Status:Active Comments:Mother. arthritis Status:Active Comments:Mother. grandmother Breast Cancer Status:Active Comments:grandmo ther Cerebrovascular Accident Status:Active Comment s:grandmother Congestive Heart Failure Status:Active Comment s:Paternal Grandmother. Diabetes Mellitus Type II Status:Active Commen ts:Father. Hypertension Status:Active Comments:Mother. Father. Hypothyroidism Status:Active Comments:Sister. Lung Cancer Status:Active Comments:Mother. arthritis Status:Active Comments:Mother. grandmother Breast Cancer Status:Active Comments:grandmo ther Cerebrovascular Accident Status:Active Comment s:grandmother Congestive Heart Failure Status:Active Comment s:Paternal Grandmother. Diabetes Mellitus Type II Status:Active Commen ts:Father. Hypertension Status:Active Comments:Mother. Father. Hypothyroidism Status:Active Comments:Sister. Lung Cancer Status:Active Comments:Mother. arthritis Status:Active Comments:Mother. grandmother Breast Cancer Status:Active Comments:grandmo ther Cerebrovascular Accident Status:Active Comment s:grandmother Congestive Heart Failure Status:Active Comment s:Paternal Grandmother. Diabetes Mellitus Type II Status:Active Commen ts:Father. Hypertension Status:Active Comments:Mother. Father. Hypothyroidism Status:Active Comments:Sister. Lung Cancer Status:Active Comments:Mother. arthritis Status:Active Comments:Mother. grandmother Breast Cancer Status:Active Comments:grandmo ther Cerebrovascular Accident Status:Active Comment s:grandmother Congestive Heart Failure Status:Active Comment s:Paternal Grandmother. Diabetes Mellitus Type II Status:Active Commen ts:Father. Hypertension Status:Active Comments:Mother. Father. Hypothyroidism Status:Active Comments:Sister. Lung Cancer Status:Active Comments:Mother. arthritis Status:Active Comments:Mother. grandmother Breast Cancer Status:Active Comments:grandmo ther Cerebrovascular Accident Status:Active Comment s:grandmother Congestive Heart Failure Status:Active Comment s:Paternal Grandmother. Diabetes Mellitus Type II Status:Active Commen ts:Father. Hypertension Status:Active Comments:Mother. Father. Hypothyroidism Status:Active Comments:Sister. Lung Cancer Status:Active Comments:Mother. arthritis Status:Active Comments:Mother. grandmother Breast Cancer Status:Active Comments:grandmo ther Cerebrovascular Accident Status:Active Comment s:grandmother Congestive Heart Failure Status:Active Comment s:Paternal Grandmother. Diabetes Mellitus Type II Status:Active Commen ts:Father. Hypertension Status:Active Comments:Mother. Father. Hypothyroidism Status:Active Comments:Sister. Lung Cancer Status:Active Comments:Mother. arthritis Status:Active Comments:Mother. grandmother Breast Cancer Status:Active Comments:grandmo ther Cerebrovascular Accident Status:Active Comment s:grandmother Congestive Heart Failure Status:Active Comment s:Paternal Grandmother. Diabetes Mellitus Type II Status:Active Commen ts:Father. Hypertension Status:Active Comments:Mother. Father. Hypothyroidism Status:Active Comments:Sister. Lung Cancer Status:Active Comments:Mother. arthritis Status:Active Comments:Mother. grandmother Breast Cancer Status:Active Comments:grandmo ther Cerebrovascular Accident Status:Active Comment s:grandmother Congestive Heart Failure Status:Active Comment s:Paternal Grandmother. Diabetes Mellitus Type II Status:Active Commen ts:Father. Hypertension Status:Active Comments:Mother. Father. Hypothyroidism Status:Active Comments:Sister. Lung Cancer Status:Active Comments:Mother. arthritis Status:Active Comments:Mother. grandmother Breast Cancer Status:Active Comments:grandmo ther Cerebrovascular Accident Status:Active Comment s:grandmother Congestive Heart Failure Status:Active Comment s:Paternal Grandmother. Diabetes Mellitus Type II Status:Active Commen ts:Father. Hypertension Status:Active Comments:Mother. Father. Hypothyroidism Status:Active Comments:Sister. Lung Cancer Status:Active Comments:Mother. arthritis Status:Active Comments:Mother. grandmother Breast Cancer Status:Active Comments:grandmo ther Cerebrovascular Accident Status:Active Comment s:grandmother Congestive Heart Failure Status:Active Comment s:Paternal Grandmother. Diabetes Mellitus Type II Status:Active Commen ts:Father. Hypertension Status:Active Comments:Mother. Father. Hypothyroidism Status:Active Comments:Sister. Lung Cancer Status:Active Comments:Mother. arthritis Status:Active Comments:Mother. grandmother Breast Cancer Status:Active Comments:grandmo ther Cerebrovascular Accident Status:Active Comment s:grandmother Congestive Heart Failure Status:Active Comment s:Paternal Grandmother. Diabetes Mellitus Type II Status:Active Commen ts:Father. Hypertension Status:Active Comments:Mother. Father. Hypothyroidism Status:Active Comments:Sister. Lung Cancer Status:Active Comments:Mother. arthritis Status:Active Comments:Mother. grandmother Breast Cancer Status:Active Comments:grandmo ther Cerebrovascular Accident Status:Active Comment s:grandmother Congestive Heart Failure Status:Active Comment s:Paternal Grandmother. Diabetes Mellitus Type II Status:Active Commen ts:Father. Hypertension Status:Active Comments:Mother. Father. Hypothyroidism Status:Active Comments:Sister. Lung Cancer Status:Active Comments:Mother. Chief Complaint and Reason for Visit Chief Complaint 1 Y FU THIAMINE, B12, B2, B3, B6, FOLIC ACID, CBC W/DIFF, OPTIC ATROPHY MRI FINDINGS Reason for Visit Essential (primary) hypertension Hyperlipidemia Paroxysmal atrial fibrillation Chief Complaint THIAMINE, B12, B2, B 3, B6, FOLIC ACID, CBC W/DIFF, OPTIC ATROPHY MRI FINDINGS Chief Complaint ANEURYSM Reason for Referral Specialty Diagnoses / Procedures Referred By Contamada t Referred To Contact Diagnoses Cerebral aneurysm, nonruptured Procedures CT ANGIO BRAIN CHG CT ANGIOGRAPHY HEAD W/CONTRAST/NONCONTRAST Bruce Louise, WILDLIFE PROTECTOR-SR SOLUTIONS CONSULTANT [address] [place] [address] Referral ID Status Reason Start Date Expiration Date Visits Re quested Visits Authorized [id number] Closed 12/24/2023 01/17/2025 1 1 Referral ID Status Reason Start Date Expiration Date Visits Re quested Visits Authorized [id number] Closed 02/29/2024 03/25/2025 1 1 Additional Source Comments INFORMATION SOURCE (unrecogn ized section and content) DATE CREATED AUTHOR 01/04/2022 [facility] DATE CREATED AUTHOR AUTHOR'S ORGANIZ ATION 06/04/2023 [facility] DATE CREATED AUTHOR AUTHOR'S ORGANIZ ATION 07/06/2024 [facility] DATE CREATED AUTHOR AUTHOR'S ORGANIZ ATION 08/12/2024 [facility] DATE CREATED AUTHOR AUTHOR'S ORGANIZ ATION 08/26/2024 [facility] DATE CREATED AUTHOR AUTHOR'S ORGANIZ ATION 09/10/2024 [facility] Care Teams (unrecognized sec tion and content) Team Status: Active Member Role Status Dates KRISTIAN Ohara Family Provider Active Ganga TOWNSEND PA Primary Care Provider Active Team Status: Inactive Member Role Status Dates Ganga TOWNSEND PA Primary Care Provider, Referring Provider Active Dr. Jensen Agrawal MD Attending Provider Active Team Status: Active Member Role Status Dates Ganga TOWNSEND PA Primary Care Provider Active Yazan Odonnell Attending Provider, Referring Provi ami Active Team Status: Active Member Role Status Dates Ganga TOWNSEND PA Primary Care Provider Active YAZAN TALAVERA Attending Provider, Referring Provide r Active Team Status: Inactive Member Role Status Dates Ganga TOWNSEND PA Primary Care Provider Active Dr. Godwin Wall , Emergency Provider Active Team Status: Inactive Member Role Status Dates Ganga TOWNSEND PA Primary Care Provider Active Yazan Odonnell Attending Provider, Referring Provi ami Active Team Status: Inactive Member Role Status Dates Ganga TOWNSEND PA Primary Care Provider Active YAZAN TALAVERA Attending Provider, Referring Provide r Active Team Status: Inactive Member Role Status Dates KRISTIAN Ohara Primary Care Provider Active Dr. Godwin Wall DO Attending Provider, Emergency Provider Active Team Status: Inactive Member Role Status Dates KRISTIAN Ohara Primary Care Provider Active Dr. Vince Delatorre DO Emergency Provider Active Lowerator Operator Relationship Specialty Start Date End Date Ganga Moy PA-C [address] [place] [address] [place] [address] PCP - General Physician Beam Department Supervisor 10/16/23 Lowerator Operator Relationship Specialty Start Date End Date Ganga Moy PA-C [address] [facility] [place] [address] PCP - General Physician Beam Department Supervisor 10/16/23 Lowerator Operator Relationship Specialty Start Date End Date Ganga Moy PA-C [address] [place] [address] PCP - General Physician Beam Department Supervisor 10/16/23 Lowerator Operator Relationship Specialty Start Date End Date Ganga Moy PA-C [address] [facility] [place] [address] PCP - General Physician Beam Department Supervisor 10/16/23 Lowerator Operator Relationship Specialty Start Date End Date Ganga Moy PA-C [address] [facility] [place] [address] PCP - General Physician Beam Department Supervisor 10/16/23 Lowerator Operator Relationship Specialty Start Date End Date Ganga Moy PA-C [address] [facility] [place] [address] PCP - General Physician Beam Department Supervisor 10/16/23 Lowerator Operator Relationship Specialty Start Date End Date Ganga Moy PA-C [address] [facility] [place] [address] PCP - General Physician Beam Department Supervisor 10/16/23 Lowerator Operator Relationship Specialty Start Date End Date Ganga Moy PA-C [address] [place] [address] PCP - General Physician Beam Department Supervisor 10/16/23 Lowerator Operator Relationship Specialty Start Date End Date Ganga Moy PA-C [address] [place] [address] PCP - General Physician Beam Department Supervisor 10/16/23 Lowerator Operator Relationship Specialty Start Date End Date Ganga Moy PA-C [address] [facility] [place] [address] PCP - General Physician Beam Department Supervisor 10/16/23 Lowerator Operator Relationship Specialty Start Date End Date Ganga Moy PA-C [address] [facility] [place] [address] PCP - General Physician Beam Department Supervisor 10/16/23 Goals (unrecognized section and content) Goals may be documented in a n alternate sectionGoals may be documented in an alternate sectionGoals may be documented in an alternate section Reason for Visit (unrecogniz ed section and content) Specialty Diagnoses / Procedures Referred By Zeke nails Referred To Contact Diagnoses Aneurysm Symptomatic Aneurysm Ji Villa MD, PhD [address] [place], [place] [id number] [facility] [address] [place] [address] Referral ID Status Reason Start Date Expiration Date Visits Re quested Visits Authorized [id number] 1 1 Reason Comments Eye Problem Specialty Diagnoses / Procedures Referred By Zeke nails Referred To Contact Diagnoses Cerebral aneurysm, nonruptured Cerebral aneurysm, nonruptured [I67.1] Procedures WI EVASC TEMP BALLOON ARTL OCCLUSION HEAD/NECK WI SLCTV CATH CAROTID/INNOM ART ANGIO XTRCRANL ART OCCLUSION/EMBOLIZATION ENDOVASCULAR HEAD OR NECK TEMPORARY PLACEMENT CATH SELECTIVE COMMON CAROTID/INNOM ART W/ ANGIO IPSILAT EXTRACRANIAL CAROTID W/ RAD S&I Ji Villa MD, PhD [address] [place] [address] [facility] [address] [place] [address] Referral ID Status Reason Start Date Expiration Date Visits Re quested Visits Authorized [id number] 1 1 Specialty Diagnoses / Procedures Referred By Zeke nails Referred To Contact Diagnoses Encounter for follow-up Encounter for follow-up [Z09] Procedures WI INSERTION SUBQ CARDIAC RHYTHM MONITOR W/PRGRMG LOOP SCHED IMPLANT ([id number], [id number]) U [facility] [address] [place] [address] [facility] [address] [place] [address] Referral ID Status Reason Start Date Expiration Date Visits Re quested Visits Authorized [id number] 1 1 Reason Comments New Patient Specialty Diagnoses / Procedures Referred [facility] Referred To Contact Diagnoses Encounter for follow-up Encounter for follow-up [Z09] Procedures WI INSERTION SUBQ CARDIAC RHYTHM MONITOR W/PRGRMG LOOP SCHED IMPLANT ([id number], [id number]) [facility] [address] [place] [id number] [facility] [address] [place] [address] Specialty Diagnoses / Procedures Referred By [facility] Referred To Contact Diagnoses Cerebral aneurysm, nonruptured Cerebral aneurysm, nonruptured [I67.1] Procedures WI SLCTV CATH INTRNL CAROTID ART ANGIO INTRCRNL ART WI TCAT PLMT IV STENT ICRA W/BALO ANGIOP IF PFRMD WI TCAT PERMANENT OCCLUSION/EMBOLIZATION PRQ CONTAINER CRANE OPERATOR PLACEMENT CATH SELECTIVE INTERNAL CAROTID ARTERY W/ ANGIO IPSILAT INTRACRANIAL CAROTID W/ RAD S&I PLACEMENT STENT INTRAVASCULAR INTRACRANIAL PERCUTANEOUS OCCLUSION/EMBOLIZATION ENDOVASCULAR CONTAINER CRANE OPERATOR PERMANENT Ji Villa MD, PhD [address] [place] [address] [facility] [address] [place] [address] Referral ID Status Reason Start Date Expiration Date Visits Re quested Visits Authorized [id number] 1 1 Reason Comments Follow-up Reason Comments Results Specialty Diagnoses / Procedures Referred By [facility] Referred To Contact Diagnoses Cerebral aneurysm, nonruptured Procedures CT ANGIO BRAIN CHG CT ANGIOGRAPHY HEAD W/CONTRAST/NONCONTRAST Bruce Louise, WILDLIFE PROTECTOR-SR SOLUTIONS CONSULTANT [address] [place] [phone] Referral ID Status Reason Start Date Expiration Date Visits Re quested Visits Authorized [id number] Closed 12/24/2023 01/17/2025 1 1 Referral ID Status Reason Start Date Expiration Date Visits Re quested Visits Authorized [id number] Closed 02/29/2024 03/25/2025 1 1 Reason Comments Follow-up Scheduled Active and Recently Administ ered Medications (unrecognized section and content) Medication Order 05/29/2023 05/30/2023 05/31/2023 apixaban (ELIQUIS) tablet 5 mg 5 mg, Oral, EVERY 12 HOURS, First dose on 05/30/23 at 2100, Until Discontinued, Due to the rapid onset of action of apixaban, no overlap is needed with other anticoagulants (e.g. enoxaparin, heparin)., Indications: Atrial Fibrillation, Post-op/Post-Proc 1946 (Given - Provider: Gilberto Lacy RN) 0802 (Given - Provider: Chaparrita Manzo RN) Atorvastatin (LIPITOR) tablet 10 mg 10 mg, Oral, DAILY AT BEDTIME, First dose on 05/30/23 at 2100, Until Discontinued 1441 (MAR Hold - Provider: Automatic Transfer - Reason: Transfer to a Procedural area)174 (MAR Unhold - Provider: Automatic Transfer)2129 (Given - Provider: Gilberto Lacy RN) Brimonidine (ALPHAGAN) 0.2 % ophthalmic solution 1 drop 1 drop, Both Eyes, 3 TIMES DAILY, First dose on 05/30/23 at 0900, Until Discontinued 0755 (Given - Provider: Vi Trinh RN)1400 (Canceled Entry - Provider: System Discharge - Comment: Automatically canceled at discontinue of medication order)1441 (MAR Hold - Provider: Automatic Transfer - Reason: Transfer to a Procedural area)174 (MAR Unhold - Provider: Automatic Transfer)213 (Given - Provider: Gilberto Lacy RN) 0803 (Given - Provider: Chaparrita Manzo, JOVANA)1400 (Canceled Entry - Provider: System Discharge - Comment: Automatically canceled at discontinue of medication order) calcium acetate - Phos Binder (PHOSLO) capsule 667 mg (CANCELED) 667 mg, Oral, 3 TIMES DAILY WITH MEALS, First dose on 05/30/23 at 0800, Until Discontinued, Hold if patient is not receiving tube feeding or on a diet. 0737 (Not Given - Provider: Vi Trinh RN - Reason: Contraindicated - Comment: NPO)1103 (Not Given - Provider: Vi Trinh RN - Reason: NPO)1441 (MAR Hold - Provider: Automatic Transfer - Reason: Transfer to a Procedural area)1700 (Automatically Held - Provider: Automatic Transfer)174 (MAR Unhold - Provider: Automatic Transfer) 0802 (Given - Provider: Chaparrita Manzo RN) Docusate (COLACE) capsule 100 mg (CANCELED) 100 mg, Oral, 2 TIMES DAILY, First dose on 05/30/23 at 0900, Until Discontinued 0754 (Given - Provider: Vi Trinh RN)1441 ([facility] Hold - Provider: Automatic Transfer - Reason: Transfer to a Procedural area)1700 (Automatically Held - Provider: Automatic Transfer)174 ([facility] Unhold - Provider: Automatic Transfer) Eptifibatide (INTEGRILIN) injection 8,060 mcg (COMPLETED) 8,060 mcg (rounded from 8,055 mcg = 90 mcg/kg 89.5 kg Order-specific weight), Intravenous, Administer over 1-2 Minutes, ONCE, 1 dose, On 05/30/23 at 1615, Intra-op/Intra-Proc 1651 (Given - Provider: Omero Swan MD) Flecainide (TAMBOCOR) tablet 50 mg 50 mg, Oral, 2 TIMES DAILY, First dose on 05/30/23 at 0900, Until Discontinued 0933 (Given - Provider: Vi Trinh RN)1441 ([facility] Hold - Provider: Automatic Transfer - Reason: Transfer to a Procedural area)1700 (Automatically Held - Provider: Automatic Transfer)174 ([facility] Unhold - Provider: Automatic Transfer) 0801 (Given - Provider: Chaparrita Manzo RN)1700 (Canceled Entry - Provider: System Discharge - Comment: Automatically canceled at discontinue of medication order) Latanoprost (XALATAN) 0.005 % ophthalmic solution 1 drop 1 drop, Both Eyes, DAILY AT BEDTIME, First dose on 05/30/23 at 2100, Until Discontinued, Remove contact lenses 1441 ([facility] Hold - Provider: Automatic Transfer - Reason: Transfer to a Procedural area)174 ([facility] Unhold - Provider: Automatic Transfer)2103 (Given - Provider: Gilberto Lacy RN) Metoprolol succinate (TOPROL-XL) tablet XL 50 mg 50 mg, Oral, DAILY EARLY EVENING, First dose on 05/30/23 at 1800, Until Discontinued, Slow release product. Do not crush. Extended release can be cut in half. 1441 ([facility] Hold - Provider: Automatic Transfer - Reason: Transfer to a Procedural area)1748 ([facility] Unhold - Provider: Automatic Transfer)1907 (Given - Provider: Chaparrita Manzo RN) Multivitamin w/ minerals (THERAPEUTIC-M) tablet 1 tablet 1 tablet, Oral, DAILY, First dose on 05/30/23 at 0900, Until Discontinued 0754 (Given - Provider: Vi Trinh RN)144 ([facility] Hold - Provider: Automatic Transfer - Reason: Transfer to a Procedural area)1748 ([facility] Unhold - Provider: Automatic Transfer) 0802 (Given - Provider: Chaparrita Manzo RN) Senna (SENOKOT) tablet 8.6 mg (CANCELED) 8.6 mg, Oral, DAILY, First dose on 05/30/23 at 0900, Until Discontinued 0754 (Given - Provider: Vi Trinh RN)144 ([facility] Hold - Provider: Automatic Transfer - Reason: Transfer to a Procedural area)174 ([facility] Unhold - Provider: Automatic Transfer) Senna (SENOKOT) tablet 8.6 mg(Linked Group 1) 8.6 mg, Oral, DAILY, First dose on 05/31/23 at 0900, Until Discontinued, Post-op/Post-Proc 08 (Not Given - Provider: Chaparrita Manzo RN - Reason: Patient/family refused) Senna (SENOKOT) tablet 8.6 mg(Linked Group 1) 8.6 mg, Per NG tube, DAILY, First dose on 05/31/23 at 0900, Until Discontinued, Post-op/Post-Proc 08 (See Alternativ e - Provider: Chaparrita Manzo RN) ticagrelor (BRILINTA) tablet 180 mg (COMPLETED) 180 mg, Oral, ONCE, 1 dose, On 05/30/23 at 1815, Maintenance doses of aspirin above 100mg reduce the effectiveness of ticagrelor and should be avoided. After any initial dose, use with aspirin 81mg per day., Post-op/Post-Proc 194 (Given - Provider: Gilberto Lacy RN) ticagrelor (BRILINTA) tablet 90 mg 90 mg, Oral, EVERY 12 HOURS NON-STANDARD, First dose on 12/24/23 at 0900, Until Discontinued, Maintenance doses of aspirin above 100mg reduce the effectiveness of ticagrelor and should be avoided. After any initial dose, use with aspirin 81mg per day., Post-op/Post-Proc 0802 (Given - Provid er: Chaparrita Manzo RN) Continuous Medication Order 05/29/2023 05/30/2023 05/31/2023 Eptifibatide in diluent (INTEGRILIN) 75 mg/100 ml premix IV infusion 0.5 mcg/kg/min 89.5 kg Order-specific weight (3.58 mL/hr, rounded to 3.6 mL/hr), Intravenous, CONTINUOUS, Starting on 05/30/23 at 1715, Until 05/31/23 at 0514, Maximum infusion rate of 20 mL/hr. 1820 ($$New Bag$$ - Provider: Chaparrita Manzo RN)1955 (Paused - Provider: Chaparrita Manzo RN)2000 (Restarted - Provider: Chaparrita Manzo RN)2204 (Paused - Provider: Chaparrita Manzo RN)2209 (Restarted - Provider: Chaparrita Manzo RN) 0106 (Paused - Provider: Chaparrita Manzo RN)0124 (Restarted - Provider: Chaparrita Manzo RN)0409 (Paused - Provider: Chaparrita Manzo RN)0419 (Restarted - Provider: Chaparrita Manzo RN)0655 (Paused - Provider: Chaparrita Manzo RN)0703 (Restarted - Provider: Chaparrita Manzo RN)0742 (Stopped - Provider: Chaparrita Manzo RN) sodium chloride 0.9% 1,000 ml with potassium chloride 20 mEq premix IV solution (CANCELED) Intravenous, at 75 mL/hr, CONTINUOUS, Starting on 05/30/23 at 0200, Until 05/30/23 at 1736 0415 ($$New Bag$$ - Provider: Bryan Saavedra RN)1441 (MAR Hold - Provider: Automatic Transfer - Reason: Transfer to a Procedural area)1736 (MAR Unhold - Provider: Gema Tovar MD) sodium chloride 0.9% 1,000 ml with potassium chloride 20 mEq premix IV solution (CANCELED) Intravenous, at 75 mL/hr, CONTINUOUS, Starting on 05/30/23 at 1815, Until 05/31/23 at 0811, Post-op/Post-Proc 1910 ($$New Bag$$ - Provider: Chaparrita Manzo RN)1956 (Paused - Provider: Chaparrita Manzo RN)2000 (Restarted - Provider: Chaparrita Manzo RN)2204 (Paused - Provider: Chaparrita Manzo RN)2210 (Restarted - Provider: Chaparrita Manzo RN) 0106 (Paused - Provider: Chaparrita Manzo RN)0124 (Restarted - Provider: Chaparrita Manzo RN)0409 (Paused - Provider: Chaparrita Manzo RN)0419 (Restarted - Provider: Chaparrita Manzo RN)0655 (Paused - Provider: Chaparrita Manzo RN)0703 (Restarted - Provider: Chaparrita Manzo RN)0750 (Rate/Dose Verify - Provider: Chaparrita Manzo RN) Sodium chloride 0.9% IV solution Intra-arterial, at 1 mL/hr, CONTINUOUS, Starting on 05/30/23 at 1815, Until 05/31/23 at 1710, Per pressure bag for all transduced lines, Post-op/Post-Proc 191 ($$New Bag$$ - Provider: Chaparrita Manzo RN) 0750 (Rate/Dose Verify - Provider: Chaparrita Manzo RN) PRN Medication Order 05/29/2023 05/30/2023 05/31/2023 Acetaminophen (TYLENOL) tablet 650 mg (CANCELED)(Linked Group 2) 650 mg, Oral, EVERY 4 HOURS NEEDED, Starting on 05/30/23 at 0149, Until 05/30/23 at 1736, Mild Pain, Maximum dose of acetaminophen is 4000 mg from all sources in 24 hours. 0813 (Given - Provider: Vi Trinh RN)1441 (MAR Hold - Provider: Automatic Transfer - Reason: Transfer to a Procedural area)1736 (MAR Unhold - Provider: Gema Tovar MD) Acetaminophen (TYLENOL) tablet 650 mg(Linked Group 3) 650 mg, Oral, EVERY 4 HOURS NEEDED, Starting on 05/30/23 at 1803, Until 05/31/23 at 1710, Mild Pain, Other, Oral temp > 99.5 F, Maximum dose of acetaminophen is 4000 mg from all sources in 24 hours., Post-op/Post-Proc 0043 (Given - Provid er: Gilberto Lacy RN)1154 (Given - Provider: Chaparrita Manzo, JOVANA) Acetaminophen (TYLENOL) tablet 650 mg(Linked Group 3) 650 mg, Per NG tube, EVERY 4 HOURS NEEDED, Starting on 05/30/23 at 1803, Until 05/31/23 at 1710, Mild Pain, Other, Oral temp > 99.5 F, Maximum dose of acetaminophen is 4000 mg from all sources in 24 hours., Post-op/Post-Proc 42 (See Alternativ e - Provider: Gilberto Lacy RN)1154 (See Alternative - Provider: Chaparrita Manzo, JOVANA) Calcium Gluconate 10 % injection 2 g(Linked Group 4) 2 g, Intravenous, ADMINISTER DIRECTED, Starting on 05/30/23 at 1803, Until 05/31/23 at 1710, See admin instructions, ICU Calcium Gluconate Replacement Parameters, Administer if ionized calcium is between 4.1-4.4 mg/dl. EXCLUDE less than 45 kg, SCr greater than or equal to 2 mg/dL, CrCl less than 30 ml/min, ESRD, and renal replacement therapy, Serum total Ca x serum Phos greater than 70 mg/dL. Extravasation Risk, Post-op/Post-Proc Calcium Gluconate 4 g in Sodium chloride 0.9%, with overfill 150 mL (total volume) IVPB(Linked Group 4) 4 g, Intravenous, Administer over 60 Minutes, ADMINISTER DIRECTED, Starting on 05/30/23 at 1803, Until 05/31/23 at 1710, See admin instructions, ICU Calcium Gluconate Replacement Parameters, Administer if ionized calcium is less than or equal to 4 mg/dl. EXCLUDE less than 45 kg, SCr greater than or equal to 2 mg/dL, CrCl less than 30 ml/min, ESRD, and renal replacement therapy, Serum total Ca x serum Phos greater than 70 mg/dL.Ca x Phos greater than 70mg/dL. If ionized calcium is less than or equal to 3.0 mg/dL, recheck ionized calcium 2 hours after replacement. Extravasation Risk, Post-op/Post-Proc Heparin (Porcine) in NaCl 2 units/ml premix IV infusion (COMPLETED) CONTINUOUS NEEDED, Starting on 05/30/23 at 1549, Until Discontinued, Intra-op/Intra-Proc 1549 ($$New Bag$$ - Provider: Ji Villa MD, PhD - Comment: given to sterile feild) Heparin (Porcine) in NaCl 2 units/ml premix IV infusion (COMPLETED) CONTINUOUS NEEDED, Starting on 05/30/23 at 1549, Until Discontinued, Intra-op/Intra-Proc 1541 ($$New Bag$$ - Provider: Ji Villa MD, PhD)1545 ($$New Bag$$ - Provider: Ji Villa MD, PhD)1549 ($$New Bag$$ - Provider: Ji Villa MD, PhD)1550 ($$New Bag$$ - Provider: Ji Villa MD, PhD)1624 ($$New Bag$$ - Provider: Ji Villa MD, PhD)1737 ($$New Bag$$ - Provider: Ji Villa MD, PhD) hydrALAZINE (APRESOLINE) injection 10 mg(Linked Group 5) 10 mg, Intravenous, EVERY 1 HOUR NEEDED, Starting on 05/30/23 at 1803, Until 05/31/23 at 1710, See administration instructions, Use as initial dose for Systolic Blood Pressure GREATER than 160 mmHg and Heart rate LESS than 60 beats per minute. Higher dose may be administered if lower dose was previously documented as ineffective 10 minutes after administration and did not result in adverse effects (HR>90), Post-op/Post-Proc hydrALAZINE (APRESOLINE) injection 20 mg(Linked Group 5) 20 mg, Intravenous, EVERY 1 HOUR NEEDED, Starting on 05/30/23 at 1803, Until 05/31/23 at 1710, See administration instructions, Higher dose may be administered for Systolic Blood Pressure GREATER than 160 mmHg and Heart rate LESS than 60 beats per minute if lower dose was previously documented as ineffective 10 minutes after administration and did not result in adverse effects (HR>90). Decrease back to lower dose if patient has adverse effects, or no PRN used in previous 3 hours, Post-op/Post-Proc HYDROmorphone (DILAUDID) injection 0.5 mg(Linked Group 6) 0.5 mg, Intravenous, EVERY 3 HOURS NEEDED, Starting on 05/30/23 at 1803, Until 05/31/23 at 1710, Severe Pain, Use as initial dose. Higher dose may be administered if lower dose was previously documented as ineffective and did not result in adverse effects (RR<10, decrease in level of consciousness)., Post-op/Post-Proc HYDROmorphone (DILAUDID) injection 1 mg(Linked Group 6) 1 mg, Intravenous, EVERY 3 HOURS NEEDED, Starting on 05/30/23 at 1803, Until 05/31/23 at 1710, Severe Pain, Higher dose may be administered if lower dose was previously documented as ineffective and did not result in adverse effects (RR<10, decrease in level of consciousness). Decrease back to lower dose if patient has adverse effects, or no PRN used in previous 12 hours., Post-op/Post-Proc iodixanol (VISIPAQUE) injection 320 mg/mL for [facility] IR (CANCELED) NEEDED, Starting on 05/30/23 at 1548, Until 05/30/23 at 1741, Intra-op/Intra-Proc 1548 (Given - Provider: Ji Villa MD, PhD)1731 (Given - Provider: Ji Villa MD, PhD)1736 (Given - Provider: Ji Villa MD, PhD) Labetalol (NORMODYNE) injection 10 mg(Linked Group 7) 10 mg, Intravenous, EVERY 1 HOUR NEEDED, Starting on 05/30/23 at 1803, Until 05/31/23 at 1710, See admininstration instructions, Use as initial dose for Systolic Blood Pressure GREATER than 160 mmHg and Heart Rate GREATER than 60 beats per minute. Higher dose may be administered if lower dose was previously documented as ineffective 10 minutes after administration and did not result in adverse effects (HR<60) For vials: labetalol should be treated as a SINGLE USE VIAL. Discard remaining contents after one use., Post-op/Post-Proc 2102 (See Alternative - Provider: Gilberto Lacy RN) Labetalol (NORMODYNE) injection 20 mg(Linked Group 7) 20 mg, Intravenous, EVERY 1 HOUR NEEDED, Starting on 05/30/23 at 1803, Until 05/31/23 at 1710, See administration instructions, For Systolic Blood Pressure GREATER than 160 mmHg and if Heart Rate GREATER than 60 beats per minute. Higher dose may be administered if lower dose was previously documented as ineffective 10 minutes after administration and did not result in adverse effects (HR<60). Decrease back to lower dose if patient has adverse effects, or no PRN used in previous 3 hours For vials: labetalol should be treated as a SINGLE USE VIAL. Discard remaining contents after one use., Post-op/Post-Proc 2102 (Given - Provider: Gilberto Lacy RN) Magnesium sulfate 4 g in sterile water 50 ml premix IVPB 4 g, Intravenous, Administer over 4 Hours, ADMINISTER DIRECTED, Starting on 05/30/23 at 1803, Until 05/31/23 at 1710, Low Magnesium, Administer 4 grams once if magnesium level is less than or equal to 2.0 mg/dL. If potassium low, replete magnesium first., Post-op/Post-Proc 0539 ($$New Bag$$ - Provider: Gilberto Lacy RN)0655 (Paused - Provider: Chaparrita Manzo RN)0703 (Restarted - Provider: Chaparrita Manzo RN)0750 (Rate/Dose Verify - Provider: Chaparrita Manzo RN) Ondansetron 4mg/2ml (ZOFRAN) injection 4 mg 4 mg, Intravenous, EVERY 4 HOURS NEEDED, Starting on 05/30/23 at 1803, Until 05/31/23 at 1710, Nausea / Vomiting, Post-op/Post-Proc oxyCODONE (ROXICODONE) tablet 5 mg(Linked Group 8) 5 mg, Oral, EVERY 4 HOURS NEEDED, Starting on 05/30/23 at 1803, Until 05/31/23 at 1710, Moderate Pain, May also be crushed and added to water for patient unable to tolerate oral tab., Post-op/Post-Proc oxyCODONE (ROXICODONE) tablet 5 mg(Linked Group 8) 5 mg, Per NG tube, EVERY 4 HOURS NEEDED, Starting on 05/30/23 at 1803, Until Sun 12 at 1710, Moderate Pain, May be crushed and added to water for administration via NG tube., Post-op/Post-Proc Polyethylene glycol (MIRALAX) packet 17 g(Linked Group 9) 17 g, Oral, DAILY NEEDED, Starting on Sat 1223 at 1803, Until Sun 12 at 1710, Constipation If No Bowel Movement in 48 Hours, after bisacodyl, Post-op/Post-Proc Polyethylene glycol (MIRALAX) packet 17 g(Linked Group 9) 17 g, Per NG tube, DAILY NEEDED, Starting on 05/30/23 at 1803, Until Sun 12 at 1710, Constipation If No Bowel Movement in 48 Hours, after bisacodyl, Post-op/Post-Proc Potassium chloride (K-DUR) tablet ER 20 mEq(Linked Group 10) 20 mEq, Oral, ADMINISTER DIRECTED, Starting on 05/30/23 at 1803, Until Sun 12 at 1710, See admin instructions, ICU Potassium Replacement Parameters, Swallow tablets whole; do not crush, chew, or suck on tablet. Tablet may also be broken in half and each half swallowed separately Administer 40 mEq if potassium level 3.6-3.9 mmol/L; administer 80 mEq if potassium level is less than or equal to 3.5 mmol/L If replacing magnesium also, replete Mg prior to KCl administration. EXCLUDE less than 45 kg, SCr greater than or equal to 2 mg/dL, CrCl less than 30 ml/min, ESRD, and renal replacement therapy. If patient receiving tube feeds, diet or is receiving other oral medications, enteral route preferred unless serum potassium is less than 3.0 mmol/L, then use IV formulation. If potassium level is less than or equal to 3.0 mmol/L, recheck potassium 4 hours after replacement., Post-op/Post-Proc 0533 (Given - Provid er: Gilberto Lacy RN) Potassium chloride 10 mEq in sterile water 100 ml premix IVPB(Linked Group 10) 10 mEq, Intravenous, Administer over 60 Minutes, ADMINISTER DIRECTED, Starting on 05/30/23 at 1803, Until 05/31/23 at 1710, Other, ICU Potassium Replacement Parameters, FOR PERIPHERAL LINE: Administer 40 mEq if potassium level 3.6-3.9 mmol/L; administer 80 mEq if potassium level is less than or equal to 3.5 mmol/L. If replacing magnesium also, replete Mg prior to KCl administration. EXCLUDE less than 45 kg, SCr greater than or equal to 2 mg/dL, CrCl less than 30 ml/min, ESRD and renal replacement therapy. If patient receiving tube feeds, diet or is receiving other oral medications, enteral route preferred unless serum potassium is less than 3.0 mmol/L, then use IV formulation. If potassium level is less than or equal to 3.0 mmol/L, recheck potassium 4 hours after replacement., Post-op/Post-Proc 0533 (See Alternativ e - Provider: Gilberto Lacy RN) Potassium chloride 20 mEq in sterile water 50 ml premix IVPB(Linked Group 10) 20 mEq, Intravenous, Administer over 60 Minutes, ADMINISTER DIRECTED, Starting on 05/30/23 at 1803, Until 05/31/23 at 1710, Other, ICU Potassium Replacement parameters, FOR CENTRAL LINE: Administer 40 mEq if potassium level 3.6-3.9 mmol/L; administer 80 mEq if potassium level is less than or equal to 3.5 mmol/L. If replacing magnesium also, replete Mg prior to KCl administration. EXCLUDE less than 45 kg, SCr greater than or equal to 2 mg/dL, CrCl less than 30 ml/min, ESRD, and renal replacement therapy. If patient receiving tube feeds, diet or is receiving other oral medications, enteral route preferred unless serum potassium is less than 3.0 mmol/L, then use IV formulation. If potassium level is less than or equal to 3.0 mmol/L, recheck potassium 4 hours after replacement. Extravasation Risk. CENTRAL LINE required. Telemetry required., Post-op/Post-Proc 0533 (See Alternativ e - Provider: Gilberto Lacy RN) Sodium chloride 0.9% IV solution 250 mL Intravenous, at 20 mL/hr, NEEDED, Starting on 05/30/23 at 0147, Until 05/31/23 at 1710, Carrier Fluid - See Admin. Inst, 250mL 0.9NS to be used as carrier fluid for intermittent small volume or piggyback medication administration as needed. Infusion rate of the carrier fluid should be set at 20 mL/hr unless the rate as the intermittent medication is less than 20 mL/hr. For intermittent medications with a rate less than 20 mL/hr set the carrier fluid at that rate of the intermittent or piggy back medication. 1441 (MAR Hold - Provider: Automatic Transfer - Reason: Transfer to a Procedural area)1748 (MAR Unhold - Provider: Automatic Transfer) Sodium chloride 0.9% IV solution 250 mL Intravenous, at 20 mL/hr, NEEDED, Starting on 05/30/23 at 1803, Until 05/31/23 at 1710, Carrier Fluid - See Admin. Inst, 250mL 0.9NS to be used as carrier fluid for intermittent small volume or piggyback medication administration as needed. Infusion rate of the carrier fluid should be set at 20 mL/hr unless the rate as the intermittent medication is less than 20 mL/hr. For intermittent medications with a rate less than 20 mL/hr set the carrier fluid at that rate of the intermittent or piggy back medication., Post-op/Post-Proc sodium phosphate 30 mmol in Sodium chloride 0.9%, with overfill 285 mL (total volume) IVPB(Linked Group 11) 30 mmol, Intravenous, Administer over 4 Hours, ADMINISTER DIRECTED, Starting on 05/30/23 at 1803, Until 05/31/23 at 1710, Other, ICU Phosphate Replacement Parameters, Administer 30 mmol if phosphate level is 2.1-2.6 mg/dl. EXCLUDE less than 45 kg, SCr greater than or equal to 2mg/dL, CrCl less than 30 ml/min, ESRD, renal replacement therapy, sodium greater than 150 mg/dL, ionized calcium less than 3.2 mg/dL, or Serum total Ca x serum Phos greater than 70 mg/dL., Post-op/Post-Proc sodium phosphate 45 mmol in Sodium chloride 0.9%, with overfill 290 mL (total volume) IVPB(Linked Group 11) 45 mmol, Intravenous, Administer over 6 Hours, ADMINISTER DIRECTED, Starting on 05/30/23 at 1803, Until 05/31/23 at 1710, Other, ICU Phosphate Replacement Parameters, Administer 45 mmol if phosphate level is less than or equal to 2.0 mg/dl. EXCLUDE less than 45 kg, SCr greater than or equal to 2 mg/dL, CrCl less than 30 ml/min, ESRD, renal replacement therapy, sodium greater than 150 mg/dL, ionized calcium less than 3.2 mg/dL, or Serum total Ca x serum Phos greater than 70 mg/dL. Recheck phosphate 6 hours after replacement., Post-op/Post-Proc No Frequency Medication Order 05/29/2023 05/30/2023 05/31/2023 Sodium chloride 0.9% w/potassium cl 20-0.9 MEQ/L-% premix IV solution (COMPLETED) 1 dose, Starting on 05/30/23 at 0349, Until 05/30/23 at 0406, Created by cabinet override 0406 ($$New Bag$$ - Provider : Bryan Saavedra RN) Linked Groups Order Group 1: Senna (SENOKOT) tablet 8.6 mgJump to med 8.6 mg, Oral, DAILY, First dose on 05/31/23 at 0900, Until Discontinued, Post-op/Post-Proc Or Senna (SENOKOT) tablet 8.6 mgJump to med 8.6 mg, Per NG tube, DAILY, First dose on 05/31/23 at 0900, Until Discontinued, Post-op/Post-Proc Group 2: Acetaminophen (TYLENOL) tablet 650 mg (CANCELED)Jump to med 650 mg, Oral, EVERY 4 HOURS NEEDED, Starting on 05/30/23 at 0149, Until 05/30/23 at 1736, Mild Pain
Maximum dose of acetaminophen is 4000 mg from all sources in 24 hours.
Or Acetaminophen (TYLENOL) oral solution 650 mg (CANCELED) 650 mg, Oral, EVERY 4 HOURS NEEDED, Starting on 05/30/23 at 0149, Until 05/30/23 at 1736, Mild Pain
Maximum dose of acetaminophen is 4000 mg from all sources in 24 hours.
Or Acetaminophen (TYLENOL) oral solution 650 mg (CANCELED) 650 mg, Per NG tube, EVERY 4 HOURS NEEDED, Starting on 05/30/23 at 0149, Until 05/30/23 at 1736, Mild Pain
Maximum dose of acetaminophen is 4000 mg from all sources in 24 hours.
Group 3: Acetaminophen (TYLENOL) tablet 650 mgJump to med 650 mg, Oral, EVERY 4 HOURS NEEDED, Starting on 05/30/23 at 1803, Until 05/31/23 at 1710, Mild Pain, Other, Oral temp > 99.5 F
Maximum dose of acetaminophen is 4000 mg from all sources in 24 hours.
Post-op/Post-Proc Or Acetaminophen (TYLENOL) tablet 650 mgJump to med 650 mg, Per NG tube, EVERY 4 HOURS NEEDED, Starting on 05/30/23 at 1803, Until 05/31/23 at 1710, Mild Pain, Other, Oral temp > 99.5 F
Maximum dose of acetaminophen is 4000 mg from all sources in 24 hours.
Post-op/Post-Proc Group 4: Calcium Gluconate 10 % injection 2 gJump to med 2 g, Intravenous, ADMINISTER DIRECTED, Starting on 05/30/23 at 1803, Until 05/31/23 at 1710, See admin instructions, ICU Calcium Gluconate Replacement Parameters
Administer if ionized calcium is between 4.1-4.4 mg/dl. EXCLUDE less than 45 kg, SCr greater than or equal to 2 mg/dL, CrCl less than 30 ml/min, ESRD, and renal replacement therapy, Serum total Ca x serum Phos greater than 70 mg/dL. Extravasation Risk
Post-op/Post-Proc Or Calcium Gluconate 4 g in Sodium chloride 0.9%, with overfill 150 mL (total volume) IVPBJump to med 4 g, Intravenous, Administer over 60 Minutes, ADMINISTER DIRECTED, Starting on 05/30/23 at 1803, Until 05/31/23 at 1710, See admin instructions, ICU Calcium Gluconate Replacement Parameters
Administer if ionized calcium is less than or equal to 4 mg/dl. EXCLUDE less than 45 kg, SCr greater than or equal to 2 mg/dL, CrCl less than 30 ml/min, ESRD, and renal replacement therapy, Serum total Ca x serum Phos greater than 70 mg/dL.Ca x Phos greater than 70mg/dL. If ionized calcium is less than or equal to 3.0 mg/dL, recheck ionized calcium 2 hours after replacement. Extravasation Risk
Post-op/Post-Proc Group 5: hydrALAZINE (APRESOLINE) injection 10 mgJump to med 10 mg, Intravenous, EVERY 1 HOUR NEEDED, Starting on 05/30/23 at 1803, Until 05/31/23 at 1710, See administration instructions
Use as initial dose for Systolic Blood Pressure GREATER than 160 mmHg and Heart rate LESS than 60 beats per minute. Higher dose may be administered if lower dose was previously documented as ineffective 10 minutes after administration and did not result in adverse effects (HR>90)
Post-op/Post-Proc Or hydrALAZINE (APRESOLINE) injection 20 mgJump to med 20 mg, Intravenous, EVERY 1 HOUR NEEDED, Starting on 05/30/23 at 1803, Until 05/31/23 at 1710, See administration instructions
Higher dose may be administered for Systolic Blood Pressure GREATER than 160 mmHg and Heart rate LESS than 60 beats per minute if lower dose was previously documented as ineffective 10 minutes after administration and did not result in adverse effects (HR>90). Decrease back to lower dose if patient has adverse effects, or no PRN used in previous 3 hours
Post-op/Post-Proc Group 6: HYDROmorphone (DILAUDID) injection 0.5 mgJump to med 0.5 mg, Intravenous, EVERY 3 HOURS NEEDED, Starting on 05/30/23 at 1803, Until 05/31/23 at 1710, Severe Pain
Use as initial dose. Higher dose may be administered if lower dose was previously documented as ineffective and did not result in adverse effects (RR<10, decrease in level of consciousness).
Post-op/Post-Proc Or HYDROmorphone (DILAUDID) injection 1 mgJump to med 1 mg, Intravenous, EVERY 3 HOURS NEEDED, Starting on 05/30/23 at 1803, Until 05/31/23 at 1710, Severe Pain
Higher dose may be administered if lower dose was previously documented as ineffective and did not result in adverse effects (RR<10, decrease in level of consciousness). Decrease back to lower dose if patient has adverse effects, or no PRN used in previous 12 hours.
Post-op/Post-Proc Group 7: Labetalol (NORMODYNE) injection 10 mgJump to med 10 mg, Intravenous, EVERY 1 HOUR NEEDED, Starting on 05/30/23 at 1803, Until 05/31/23 at 1710, See admininstration instructions
Use as initial dose for Systolic Blood Pressure GREATER than 160 mmHg and Heart Rate GREATER than 60 beats per minute. Higher dose may be administered if lower dose was previously documented as ineffective 10 minutes after administration and did not result in adverse effects (HR<60) For vials: labetalol should be treated as a SINGLE USE VIAL. Discard remaining contents after one use.
Post-op/Post-Proc Or Labetalol (NORMODYNE) injection 20 mgJump to med 20 mg, Intravenous, EVERY 1 HOUR NEEDED, Starting on 05/30/23 at 1803, Until 05/31/23 at 1710, See administration instructions
For Systolic Blood Pressure GREATER than 160 mmHg and if Heart Rate GREATER than 60 beats per minute. Higher dose may be administered if lower dose was previously documented as ineffective 10 minutes after administration and did not result in adverse effects (HR<60). Decrease back to lower dose if patient has adverse effects, or no PRN used in previous 3 hours For vials: labetalol should be treated as a SINGLE USE VIAL. Discard remaining contents after one use.
Post-op/Post-Proc Group 8: oxyCODONE (ROXICODONE) tablet 5 mgJump to med 5 mg, Oral, EVERY 4 HOURS NEEDED, Starting on 05/30/23 at 1803, Until 05/31/23 at 1710, Moderate Pain
May also be crushed and added to water for patient unable to tolerate oral tab.
Post-op/Post-Proc Or oxyCODONE (ROXICODONE) tablet 5 mgJump to med 5 mg, Per NG tube, EVERY 4 HOURS NEEDED, Starting on 05/30/23 at 1803, Until 05/31/23 at 1710, Moderate Pain
May be crushed and added to water for administration via NG tube.
Post-op/Post-Proc Group 9: Polyethylene glycol (MIRALAX) packet 17 gJump to med 17 g, Oral, DAILY NEEDED, Starting on 05/30/23 at 1803, Until 05/31/23 at 1710, Constipation If No Bowel Movement in 48 Hours, after bisacodyl, Post-op/Post-Proc Or Polyethylene glycol (MIRALAX) packet 17 gJump to med 17 g, Per NG tube, DAILY NEEDED, Starting on 05/30/23 at 1803, Until 05/31/23 at 1710, Constipation If No Bowel Movement in 48 Hours, after bisacodyl, Post-op/Post-Proc Group 10: Potassium chloride 20 mEq in sterile water 50 ml premix IVPBJump to med 20 mEq, Intravenous, Administer over 60 Minutes, ADMINISTER DIRECTED, Starting on 05/30/23 at 1803, Until 05/31/23 at 1710, Other, ICU Potassium Replacement parameters
FOR CENTRAL LINE: Administer 40 mEq if potassium level 3.6-3.9 mmol/L; administer 80 mEq if potassium level is less than or equal to 3.5 mmol/L. If replacing magnesium also, replete Mg prior to KCl administration. EXCLUDE less than 45 kg, SCr greater than or equal to 2 mg/dL, CrCl less than 30 ml/min, ESRD, and renal replacement therapy. If patient receiving tube feeds, diet or is receiving other oral medications, enteral route preferred unless serum potassium is less than 3.0 mmol/L, then use IV formulation. If potassium level is less than or equal to 3.0 mmol/L, recheck potassium 4 hours after replacement. Extravasation Risk. CENTRAL LINE required. Telemetry required.
Post-op/Post-Proc Or Potassium chloride (K-DUR) tablet ER 20 mEqJump to med 20 mEq, Oral, ADMINISTER DIRECTED, Starting on 05/30/23 at 1803, Until 05/31/23 at 1710, See admin instructions, ICU Potassium Replacement Parameters
Swallow tablets whole; do not crush, chew, or suck on tablet. Tablet may also be broken in half and each half swallowed separately Administer 40 mEq if potassium level 3.6-3.9 mmol/L; administer 80 mEq if potassium level is less than or equal to 3.5 mmol/L If replacing magnesium also, replete Mg prior to KCl administration. EXCLUDE less than 45 kg, SCr greater than or equal to 2 mg/dL, CrCl less than 30 ml/min, ESRD, and renal replacement therapy. If patient receiving tube feeds, diet or is receiving other oral medications, enteral route preferred unless serum potassium is less than 3.0 mmol/L, then use IV formulation. If potassium level is less than or equal to 3.0 mmol/L, recheck potassium 4 hours after replacement.
Post-op/Post-Proc Or Potassium chloride 10 mEq in sterile water 100 ml premix IVPBJump to med 10 mEq, Intravenous, Administer over 60 Minutes, ADMINISTER DIRECTED, Starting on 05/30/23 at 1803, Until 05/31/23 at 1710, Other, ICU Potassium Replacement Parameters
FOR PERIPHERAL LINE: Administer 40 mEq if potassium level 3.6-3.9 mmol/L; administer 80 mEq if potassium level is less than or equal to 3.5 mmol/L. If replacing magnesium also, replete Mg prior to KCl administration. EXCLUDE less than 45 kg, SCr greater than or equal to 2 mg/dL, CrCl less than 30 ml/min, ESRD and renal replacement therapy. If patient receiving tube feeds, diet or is receiving other oral medications, enteral route preferred unless serum potassium is less than 3.0 mmol/L, then use IV formulation. If potassium level is less than or equal to 3.0 mmol/L, recheck potassium 4 hours after replacement.
Post-op/Post-Proc Group 11: sodium phosphate 30 mmol in Sodium chloride 0.9%, with overfill 285 mL (total volume) IVPBJump to med 30 mmol, Intravenous, Administer over 4 Hours, ADMINISTER DIRECTED, Starting on 05/30/23 at 1803, Until 05/31/23 at 1710, Other, ICU Phosphate Replacement Parameters
Administer 30 mmol if phosphate level is 2.1-2.6 mg/dl. EXCLUDE less than 45 kg, SCr greater than or equal to 2mg/dL, CrCl less than 30 ml/min, ESRD, renal replacement therapy, sodium greater than 150 mg/dL, ionized calcium less than 3.2 mg/dL, or Serum total Ca x serum Phos greater than 70 mg/dL.
Post-op/Post-Proc Or sodium phosphate 45 mmol in Sodium chloride 0.9%, with overfill 290 mL (total volume) IVPBJump to med 45 mmol, Intravenous, Administer over 6 Hours, ADMINISTER DIRECTED, Starting on 05/30/23 at 1803, Until 05/31/23 at 1710, Other, ICU Phosphate Replacement Parameters
Administer 45 mmol if phosphate level is less than or equal to 2.0 mg/dl. EXCLUDE less than 45 kg, SCr greater than or equal to 2 mg/dL, CrCl less than 30 ml/min, ESRD, renal replacement therapy, sodium greater than 150 mg/dL, ionized calcium less than 3.2 mg/dL, or Serum total Ca x serum Phos greater than 70 mg/dL. Recheck phosphate 6 hours after replacement.
Post-op/Post-Proc Scheduled Medication Order 10/15/2023 10/16/2023 10/17/2023 apixaban (ELIQUIS) tablet 5 mg 5 mg, Oral, EVERY 12 HOURS, First dose on Thu10/16/23 at 2100, Until Discontinued, Due to the rapid onset of action of apixaban, no overlap is needed with other anticoagulants (e.g. enoxaparin, heparin)., Indications: home therapy 2301 (Given - Provider: Alyce Lai RN) 0807 (Given - Provider: Kathleen Wall, RN) dexAMETHasone (DECADRON) injection 10 mg (COMPLETED) 10 mg, Intravenous, ONCE, 1 dose, On 10/17/23 at 1015 1138 (Given - Provid er: Kathleen Wall RN) dexAMETHasone (DECADRON) tablet 4 mg 4 mg, Oral, EVERY 6 HOURS, First dose on 10/17/23 at 1800, Until Discontinued 1800 (Canceled Entry - Provider: System Discharge - Comment: Automatically canceled at discontinue of medication order) faMOTIdine (PEPCID) tablet 20 mg 20 mg, Oral, EVERY 12 HOURS, First dose on Thu10/17/23 at 0945, Until Discontinued 1137 (Given - Provid er: Kathleen Wall RN) Flecainide (TAMBOCOR) tablet 50 mg 50 mg, Oral, 2 TIMES DAILY, First dose on Thu10/16/23 at 1715, Until Discontinued 1814 (Given - Provider: Melinda Vásquez RN) 0806 (Given - Provider: Kathleen Wall RN)1626 (Not Given - Provider: Kathleen Wall RN - Reason: Other - Comment: patient declines; reports she will take this medication at home) Gadopiclenol SOLN 1-25 mL (COMPLETED) 1-25 mL, Intravenous, ONCE, 1 dose, On Thu10/16/23 at 2200 2225 (Given - Provider: Hank White) iohexol (OMNIPAQUE) 350 MG/ML injection 1-171 mL (COMPLETED) 1-171 mL, Intravenous, ONCE, 1 dose, On Thu10/16/23 at 1845, Extravasation Risk, CT Procedure 1838 (Given - Radiology - Provider: Yunier Bates) Latanoprost (XALATAN) 0.005 % ophthalmic solution 1 drop 1 drop, Both Eyes, DAILY AT BEDTIME, First dose on Thu10/16/23 at 2100, Until Discontinued, Remove contact lenses 2339 (Given - Provider: Alyce Lai RN) Metoprolol succinate (TOPROL-XL) tablet XL 25 mg 25 mg, Oral, DAILY, First dose on Thu10/17/23 at 0900, Until Discontinued, Slow release product. Do not crush. Extended release can be cut in half. 0806 (Given - Provid er: Kathleen Wall RN) Pravastatin (PRAVACHOL) tablet 20 mg 20 mg, Oral, DAILY, First dose on Thu10/17/23 at 0900, Until Discontinued 1010 (Not Given - Provider: Kathleen Wall RN - Reason: Other - Comment: patient declines) Timolol maleate (TIMOPTIC) 0.5 % ophthalmic solution 1 drop 1 drop, Both Eyes, 2 TIMES DAILY, First dose on Thu10/16/23 at 2100, Until Discontinued 2301 (Given - Provider: Alyce Lai RN) 0807 (Given - Provider: Kathleen Wall RN) PRN Medication Order 10/15/2023 10/16/2023 10/17/2023 Acetaminophen (TYLENOL) tablet 650 mg 650 mg, Oral, EVERY 4 HOURS NEEDED, Starting on 10/16/23 at 1639, Until 10/17/23 at 1947, Mild Pain, Oral temp > 100.4 F, Maximum dose of acetaminophen is 4000 mg from all sources in 24 hours. 0806 (Given - Provid er: Kathleen Wall RN)1625 (Given - Provider: Kathleen Wall RN) Continuous Medication Order 10/27/2023 10/28/2023 10/29/2023 Sodium chloride 0.9% IV solution Intravenous, at 50 mL/hr, CONTINUOUS, Starting on Emily 10/29/23 at 0915, Until Emily 10/29/23 at 2153, Post-op/Post-Proc 0945 ($$New Bag$$ - Provider: Ivette Andrews RN)1339 (MAR Hold - Provider: Automatic Transfer - Reason: Transfer to a Procedural area)2153 (MAR Unhold - Provider: System Discharge) PRN Medication Order 10/27/2023 10/28/2023 10/29/2023 Acetaminophen (TYLENOL) oral solution 650 mg(Linked Group 1) 650 mg, Per NG tube, EVERY 6 HOURS NEEDED, Starting on Emily 10/29/23 at 1513, Until Emily 10/29/23 at 2153, Mild Pain, Maximum dose of acetaminophen is 4000 mg from all sources in 24 hours., Post-op/Post-Proc 1518 (See Alternativ e - Provider: Karolina Coleman RN) Acetaminophen (TYLENOL) suppository 650 mg(Linked Group 1) 650 mg, Rectal, EVERY 6 HOURS NEEDED, Starting on Emily 10/29/23 at 1513, Until Emily 10/29/23 at 2153, Mild Pain, Maximum dose of acetaminophen is 4000 mg from all sources in 24 hours., Post-op/Post-Proc 1518 (See Alternativ e - Provider: Karolina Coleman RN) Acetaminophen (TYLENOL) tablet 650 mg(Linked Group 1) 650 mg, Oral, EVERY 6 HOURS NEEDED, Starting on Emily 10/29/23 at 1513, Until Emily 10/29/23 at 2153, Mild Pain, Maximum dose of acetaminophen is 4000 mg from all sources in 24 hours., Post-op/Post-Proc 1519 (Given - Provid er: Karolina Coleman RN) Heparin (Porcine) in NaCl 2 units/ml premix IV infusion (COMPLETED) CONTINUOUS NEEDED, Starting on Emily 10/29/23 at 1353, Until Emily 10/29/23 at 1442, Intra-op/Intra-Proc 1353 ($$New Bag$$ - Provider: Ji Villa MD, PhD - Comment: Administered onto the sterile field) Heparin (Porcine) in NaCl 2 units/ml premix IV infusion (COMPLETED) CONTINUOUS NEEDED, Starting on Emily 10/29/23 at 1354, Until Emily 10/29/23 at 1442, Intra-op/Intra-Proc 1352 ($$New Bag$$ - Provider: Ji Villa MD, PhD - Comment: Arterial)1353 ($$New Bag$$ - Provider: Ji Villa MD, PhD - Comment: Arterial)1354 ($$New Bag$$ - Provider: Ji Villa MD, PhD - Comment: Arterial)1355 (Canceled Entry - Provider: Ji Villa MD, PhD - Comment: Arterial) iodixanol (VISIPAQUE) injection 320 mg/mL for [facility] IR (CANCELED) NEEDED, Starting on Emily 10/29/23 at 1354, Until Emily 10/29/23 at 1444, Intra-op/Intra-Proc 1354 (Given - Provid er: Ji Villa MD, PhD)1429 (Given - Provider: Ji Villa MD, PhD) Lidocaine 2 % injection (CANCELED) NEEDED, Starting on Emily 10/29/23 at 1359, Until Emily 24 at 1444, Intra-op/Intra-Proc 1359 (Given - Provid er: Ji Villa MD, PhD) Ondansetron 4mg/2ml (ZOFRAN) injection 4 mg 4 mg, Intravenous, EVERY 4 HOURS NEEDED, Starting on Emily 10/29/23 at 1650, Until Emily 10/29/23 at 2153, Nausea / Vomiting, Post-op/Post-Proc Linked Groups Order Group 1: Acetaminophen (TYLENOL) tablet 650 mgJump to med 650 mg, Oral, EVERY 6 HOURS NEEDED, Starting on Emily 10/29/23 at 1513, Until Emily 10/29/23 at 2153, Mild Pain, Maximum dose of acetaminophen is 4000 mg from all sources in 24 hours., Post-op/Post-Proc Or Acetaminophen (TYLENOL) oral solution 650 mgJump to med 650 mg, Per NG tube, EVERY 6 HOURS NEEDED, Starting on Emily 10/29/23 at 1513, Until Emily 10/29/23 at 2153, Mild Pain, Maximum dose of acetaminophen is 4000 mg from all sources in 24 hours., Post-op/Post-Proc Or Acetaminophen (TYLENOL) suppository 650 mgJump to med 650 mg, Rectal, EVERY 6 HOURS NEEDED, Starting on Emily 10/29/23 at 1513, Until Emily 10/29/23 at 2153, Mild Pain, Maximum dose of acetaminophen is 4000 mg from all sources in 24 hours., Post-op/Post-Proc Scheduled Medication Order 11/19/2023 11/20/2023 11/21/[address] 325 mg 325 mg, Oral, DAILY, First dose on 11/21/23 at 1100, Until Discontinued, Do not chew or crush 111 (Given - Provid er: Eric Araujo RN) Atorvastatin (LIPITOR) tablet 5 mg 5 mg, Oral, DAILY, First dose on 11/21/23 at 0900, Until Discontinued 805 (Given - Provid er: Eric Araujo RN) Clopidogrel (PLAVIX) tablet 75 mg 75 mg, Oral, DAILY, First dose on 11/21/23 at 1100, Until Discontinued 1118 (Given - Provid er: Eric Araujo RN) Flecainide (TAMBOCOR) tablet 50 mg 50 mg, Oral, 2 TIMES DAILY, First dose on Thu11/20/23 at 2100, Until Discontinued 2041 (Given - Provider: Bubba Morris RN) 805 (Given - Provider: Eric Araujo RN) Metoprolol succinate (TOPROL-XL) tablet XL 25 mg 25 mg, Oral, DAILY, First dose on 11/21/23 at 0900, Until Discontinued, Slow release product. Do not crush. Extended release can be cut in half. 0805 (Given - Provid er: Eric Araujo RN) Continuous Medication Order 11/19/2023 11/20/2023 11/21/2023 Sodium chloride 0.9% IV solution (CANCELED) Intravenous, at 50 mL/hr, CONTINUOUS, Starting on Thu11/20/23 at 0745, Until Thu11/20/23 at 1424, Pre-op/Pre-Proc 0819 ($$New Bag$$ - Provider: Marika Alberts RN)1026 (Paused - Provider: MORENA Rodrigues - Comment: Switch to gravity)1027 (Restarted - Provider: MORENA Rodrigues)1204 ($$New Bag$$ - Provider: MORENA Rodrigues) Sodium chloride 0.9% IV solution (CANCELED) Intravenous, at 50 mL/hr, CONTINUOUS, Starting on Thu11/20/23 at 1730, Until Thu11/20/23 at 2146 1807 ($$New Bag$$ - Provider: Emily Toure RN)2146 (Stopped - Provider: Bubba Morris RN) Sodium chloride 0.9% IV solution Intravenous, at 50 mL/hr, CONTINUOUS, Starting on Thu11/20/23 at 2245, Until 11/21/23 at 1349 2237 ($$New Bag$$ - Provider: Bubba Morris RN) 0330 (Rate/Dose Verify - Provider: Bubba Morris RN) PRN Medication Order 11/19/2023 11/20/2023 11/21/2023 Acetaminophen (TYLENOL) tablet 650 mg 650 mg, Oral, EVERY 4 HOURS NEEDED, Starting on Thu11/20/23 at 1824, Until 11/21/23 at 1349, Mild Pain, Moderate Pain, Maximum dose of acetaminophen is 4000 mg from all sources in 24 hours. 1849 (Given - Provider: Emily Toure RN) 0005 (Given - Provider: Bubba Morris RN)0929 (Given - Provider: Eric Araujo RN) Heparin (Porcine) in NaCl 2 units/ml premix IV infusion (COMPLETED) CONTINUOUS NEEDED, Starting on Thu11/20/23 at 1113, Until Thu11/20/23 at 1159, Intra-op/Intra-Proc 1113 ($$New Bag$$ - Provider: Ji Villa MD, PhD - Comment: prn to sterile field.) Heparin (Porcine) in NaCl 2 units/ml premix IV infusion (COMPLETED) CONTINUOUS NEEDED, Starting on Thu11/20/23 at 1143, Until Thu11/20/23 at 1159, Intra-op/Intra-Proc 1129 ($$New Bag$$ - Provider: Ji Villa MD, PhD)1134 ($$New Bag$$ - Provider: Ji Villa MD, PhD)1138 ($$New Bag$$ - Provider: Ji Villa MD, PhD)1143 ($$New Bag$$ - Provider: Ji Villa MD, PhD) iodixanol (VISIPAQUE) injection 320 mg/mL for [facility] IR (CANCELED) NEEDED, Starting on Thu11/20/23 at 1128, Until Thu11/20/23 at 1159, Intra-op/Intra-Proc 1128 (Given - Provider: Ji Villa MD, PhD) Scheduled Medication Order 07/27/2024 07/28/2024 07/29/2024 bisacodyl (DULCOLAX) suppository 10 mg 10 mg, Rectal, DAILY, First dose on Thu07/29/24 at 1000, Until Discontinued 1032 (Given - Provider: Nickie Grant, Student Nurse) cefTRIAXone (ROCEPHIN) 1 g in dextrose 50ml premix IVPB (COMPLETED) 1 g, Intravenous, Administer over 30 Minutes, EVERY 24 HOURS, 1 dose, First dose (after last modification) on Emily 07/28/24 at 0000 0018 ($$New Bag$$ - Provider: Bethany Isaacs RN)0023 (Rate/Dose Verify - Provider: Bethany Isaacs RN)0043 (Stopped - Provider: Bethany Isaacs RN) cefTRIAXone (ROCEPHIN) 2 g in dextrose 50mL premix IVPB (CANCELED) 2 g, Intravenous, Administer over 30 Minutes, EVERY 24 HOURS, 2 doses, First dose (after last modification) on Thu07/27/24 at 0000, Last dose on Thu07/28/24 at 0000 0122 ($$New Bag$$ - Provider: Dakota Mujica RN)0152 (Stopped - Provider: Yaritza Ortiz RN) dorzolamide (TRUSOPT) 2 % ophthalmic solution 1 drop 1 drop, Both Eyes, 2 TIMES DAILY, First dose on Thu07/27/24 at 0900, Until Discontinued, If given with other meds, separate by 5 minutes 1016 (Given - Provider: Yaritza Ortiz RN)1734 (Given - Provider: Roni Herrera RN) 0937 (Given - Provider: Juliette Vidal, Student Nurse)1606 (Given - Provider: Yocasta Adams, JOVANA) 0847 (Given - Provider: Nickie Grant, Student Nurse) Enoxaparin Sodium (LOVENOX) injection 40 mg(Linked Group 1) 40 mg, Subcutaneous, DAILY, First dose on Thu07/27/24 at 0900, Until Discontinued, For SUBCUTANEOUS route ONLY: alternate injection sites between left and right abdominal wall, pinching location and avoiding area around navel. If unable to use abdominal sites, may use the front or side of thighs., Indications: DVT/PE prophylaxis 1004 (Given - Provider: Yaritza Ortiz RN) 0929 (Given - Provider: Juliette Vidal, Student Nurse) 0847 (Given - Provider: Nickie Grant, Student Nurse) Flecainide (TAMBOCOR) tablet 50 mg 50 mg, Oral, EVERY 12 HOURS, First dose on Thu07/27/24 at 0900, Until Discontinued 1004 (Given - Provider: Yaritza Ortiz RN)2226 (Given - Provider: Bethany Isaacs RN) 0931 (Given - Provider: Juliette Vidal Student Nurse)2140 (Given - Provider: Kecia Srinivasan RN) 0847 (Given - Provider: Nickie Grant, Student Nurse) Latanoprost (XALATAN) 0.005 % ophthalmic solution 1 drop 1 drop, Both Eyes, DAILY AT BEDTIME, First dose on Thu07/27/24 at 0000, Until Discontinued, Remove contact lenses 005 (Given - Provider: Dakota Mujica RN)2116 (Given - Provider: Bethany Isaacs RN) 2110 (Given - Provider: Kecia Srinivasan RN) Melatonin tablet 6 mg 6 mg, Oral, DAILY AT BEDTIME, First dose on Thu07/26/24 at 2330, Until Discontinued 116 (Given - Provider: Dakota Mujica RN)2114 (Given - Provider: Bethany Isaacs RN) 2108 (Given - Provider: Kecia Srinivasan, JOVANA) Metoprolol succinate (TOPROL-XL) tablet XL 25 mg 25 mg, Oral, DAILY, First dose on Thu07/27/24 at 0900, Until Discontinued, Slow release product. Do not crush. Extended release can be cut in half. *Hold for HR <60 bpm 08 (Not Given - Provider: Yaritza Ortiz RN - Reason: Order Parameters not met - Comment: HR has been in 40s overnight, currently sitting in 50s. provider aware) 928 (Given - Provider: Milagros Landrum) 906 (Not Given - Provider: Charlene Valadez RN - Reason: Order Parameters not met - Comment: HR < 60) Pantoprazole (PROTONIX) tablet DR 40 mg 40 mg, Oral, DAILY, First dose on Thu07/27/24 at 0900, Until Discontinued, Swallow whole; do not crush or chew., Indications: Continuation of Home Therapy 1004 (Given - Provider: Yaritza Ortiz RN) 09 (Given - Provider: Milagros Landrum) 0847 (Given - Provider: Milagros John) Senna (SENOKOT) tablet 8.6 mg(Linked Group 2) 8.6 mg, Oral, DAILY, First dose on Thu07/27/24 at 0900, Until Discontinued 1004 (Given - Provider: Yaritza Ortiz RN) 09 (Given - Provider: Mliagros Landrum) 0847 (Given - Provider: Milagros John) Senna (SENOKOT) tablet 8.6 mg(Linked Group 2) 8.6 mg, Per NG tube, DAILY, First dose on Thu07/27/24 at 0900, Until Discontinued 1004 (See Alternative - Provider: Yaritza Ortiz RN) 09 (See Alternative - Provider: Milagros Landrum) 0847 (See Alternative - Provider: Nickie Rosas-Stable, Student Nurse) Timolol maleate (TIMOPTIC) 0.5 % ophthalmic solution 1 drop 1 drop, Both Eyes, 2 TIMES DAILY, First dose on Thu07/27/24 at 0900, Until Discontinued 1005 (Given - Provider: Yaritza Ortiz RN)1714 (Given - Provider: Roni Herrera, RN) 0926 (Given - Provider: Juliette Vidal, Student Nurse)1606 (Given - Provider: Yocasta Adams, JOVANA) 0838 (Given - Provider: Nickie Grant, Student Nurse) PRN Medication Order 07/27/2024 07/28/2024 07/29/2024 Acetaminophen (TYLENOL) tablet 650 mg(Linked Group 3) 650 mg, Oral, EVERY 4 HOURS NEEDED, Starting on Thu07/26/24 at 2332, Until Thu07/29/24 at 1621, Mild Pain, Other, Oral temp > 99.5 F, Maximum dose of acetaminophen is 4000 mg from all sources in 24 hours. Acetaminophen (TYLENOL) tablet 650 mg(Linked Group 3) 650 mg, Per NG tube, EVERY 4 HOURS NEEDED, Starting on Thu07/26/24 at 2332, Until Thu07/29/24 at 1621, Mild Pain, Other, Oral temp > 99.5 F, Maximum dose of acetaminophen is 4000 mg from all sources in 24 hours. hydrALAZINE (APRESOLINE) injection 10 mg(Linked Group 4) 10 mg, Intravenous, EVERY 1 HOUR NEEDED, Starting on Thu07/26/24 at 2110, Until Thu07/29/24 at 1621, See administration instructions, Use as initial dose for Systolic Blood Pressure GREATER than 160 mmHg and Heart rate LESS than 60 beats per minute. Higher dose may be administered if lower dose was previously documented as ineffective 10 minutes after administration and did not result in adverse effects (HR>90) hydrALAZINE (APRESOLINE) injection 20 mg(Linked Group 4) 20 mg, Intravenous, EVERY 1 HOUR NEEDED, Starting on Thu07/26/24 at 2110, Until Thu07/29/24 at 1621, See administration instructions, Higher dose may be administered for Systolic Blood Pressure GREATER than 160 mmHg and Heart rate LESS than 60 beats per minute if lower dose was previously documented as ineffective 10 minutes after administration and did not result in adverse effects (HR>90). Decrease back to lower dose if patient has adverse effects, or no PRN used in previous 3 hours Labetalol (NORMODYNE) injection 10 mg(Linked Group 5) 10 mg, Intravenous, EVERY 1 HOUR NEEDED, Starting on Thu07/26/24 at 2110, Until Thu07/29/24 at 1621, See admininstration instructions, Use as initial dose for Systolic Blood Pressure GREATER than 160 mmHg and Heart Rate GREATER than 60 beats per minute. Higher dose may be administered if lower dose was previously documented as ineffective 10 minutes after administration and did not result in adverse effects (HR<60) For vials: labetalol should be treated as a SINGLE USE VIAL. Discard remaining contents after one use. Labetalol (NORMODYNE) injection 20 mg(Linked Group 5) 20 mg, Intravenous, EVERY 1 HOUR NEEDED, Starting on Thu07/26/24 at 2110, Until Thu07/29/24 at 1621, See administration instructions, For Systolic Blood Pressure GREATER than 160 mmHg and if Heart Rate GREATER than 60 beats per minute. Higher dose may be administered if lower dose was previously documented as ineffective 10 minutes after administration and did not result in adverse effects (HR<60). Decrease back to lower dose if patient has adverse effects, or no PRN used in previous 3 hours For vials: labetalol should be treated as a SINGLE USE VIAL. Discard remaining contents after one use. Polyethylene glycol (MIRALAX) packet 17 g(Linked Group 6) 17 g, Oral, DAILY NEEDED, Starting on Thu07/26/24 at 2332, Until Thu07/29/24 at 1621, Constipation If No Bowel Movement in 48 Hours, after bisacodyl 1651 (Given - Provider: Yocasta Adams RN) 1030 (Given - Provider: Nickie Grant, Student Nurse) Polyethylene glycol (MIRALAX) packet 17 g(Linked Group 6) 17 g, Per NG tube, DAILY NEEDED, Starting on Thu07/26/24 at 2332, Until Thu07/29/24 at 1621, Constipation If No Bowel Movement in 48 Hours, after bisacodyl 1651 (See Alternative - Provider: Yocasta Adams RN) 1030 (See Alternative - Provider: Nickie Grant, Student Nurse) Linked Groups Order Group 1: Enoxaparin Sodium (LOVENOX) injection 40 mgJump to med 40 mg, Subcutaneous, DAILY, First dose on Thu07/27/24 at 0900, Until Discontinued, For SUBCUTANEOUS route ONLY: alternate injection sites between left and right abdominal wall, pinching location and avoiding area around navel. If unable to use abdominal sites, may use the front or side of thighs., Indications: DVT/PE prophylaxis And PLATELET COUNT - baseline (CANCELED) Routine, ONE TIME, On Thu07/27/24 at 0813, For 1 occurrence, New collection And PLATELET COUNT (CANCELED) Routine, EVERY 3 DAYS AM LAB, First occurrence on Thu07/30/24 at 0500, Until Specified, New collection Group 2: Senna (SENOKOT) tablet 8.6 mgJump to med 8.6 mg, Oral, DAILY, First dose on Thu07/27/24 at 0900, Until Discontinued Or Senna (SENOKOT) tablet 8.6 mgJump to med 8.6 mg, Per NG tube, DAILY, First dose on Thu07/27/24 at 0900, Until Discontinued Group 3: Acetaminophen (TYLENOL) tablet 650 mgJump to med 650 mg, Oral, EVERY 4 HOURS NEEDED, Starting on Thu07/26/24 at 2332, Until Thu07/29/24 at 1621, Mild Pain, Other, Oral temp > 99.5 F, Maximum dose of acetaminophen is 4000 mg from all sources in 24 hours. Or Acetaminophen (TYLENOL) tablet 650 mgJump to med 650 mg, Per NG tube, EVERY 4 HOURS NEEDED, Starting on Thu07/26/24 at 2332, Until Thu07/29/24 at 1621, Mild Pain, Other, Oral temp > 99.5 F, Maximum dose of acetaminophen is 4000 mg from all sources in 24 hours. Group 4: hydrALAZINE (APRESOLINE) injection 10 mgJump to med 10 mg, Intravenous, EVERY 1 HOUR NEEDED, Starting on Thu07/26/24 at 2110, Until Thu07/29/24 at 1621, See administration instructions, Use as initial dose for Systolic Blood Pressure GREATER than 160 mmHg and Heart rate LESS than 60 beats per minute. Higher dose may be administered if lower dose was previously documented as ineffective 10 minutes after administration and did not result in adverse effects (HR>90) Or hydrALAZINE (APRESOLINE) injection 20 mgJump to med 20 mg, Intravenous, EVERY 1 HOUR NEEDED, Starting on Thu07/26/24 at 2109, Until Thu07/29/24 at 1621, See administration instructions, Higher dose may be administered for Systolic Blood Pressure GREATER than 160 mmHg and Heart rate LESS than 60 beats per minute if lower dose was previously documented as ineffective 10 minutes after administration and did not result in adverse effects (HR>90). Decrease back to lower dose if patient has adverse effects, or no PRN used in previous 3 hours Group 5: Labetalol (NORMODYNE) injection 10 mgJump to med 10 mg, Intravenous, EVERY 1 HOUR NEEDED, Starting on Thu07/26/24 at 2109, Until Thu07/29/24 at 1621, See admininstration instructions, Use as initial dose for Systolic Blood Pressure GREATER than 160 mmHg and Heart Rate GREATER than 60 beats per minute. Higher dose may be administered if lower dose was previously documented as ineffective 10 minutes after administration and did not result in adverse effects (HR<60) For vials: labetalol should be treated as a SINGLE USE VIAL. Discard remaining contents after one use. Or Labetalol (NORMODYNE) injection 20 mgJump to med 20 mg, Intravenous, EVERY 1 HOUR NEEDED, Starting on Thu07/26/24 at 2109, Until Thu07/29/24 at 1621, See administration instructions, For Systolic Blood Pressure GREATER than 160 mmHg and if Heart Rate GREATER than 60 beats per minute. Higher dose may be administered if lower dose was previously documented as ineffective 10 minutes after administration and did not result in adverse effects (HR<60). Decrease back to lower dose if patient has adverse effects, or no PRN used in previous 3 hours For vials: labetalol should be treated as a SINGLE USE VIAL. Discard remaining contents after one use. Group 6: Polyethylene glycol (MIRALAX) packet 17 gJump to med 17 g, Oral, DAILY NEEDED, Starting on Thu07/26/24 at 2332, Until Thu07/29/24 at 1621, Constipation If No Bowel Movement in 48 Hours, after bisacodyl Or Polyethylene glycol (MIRALAX) packet 17 gJump to med 17 g, Per NG tube, DAILY NEEDED, Starting on Thu07/26/24 at 2332, Until Thu07/29/24 at 1621, Constipation If No Bowel Movement in 48 Hours, after bisacodyl FOR RECORDS PERTAINING TO PATIENTS WHO ARE [...] BE BASED ON THE PRIMARY CLINICAL RECORDS. The [employer] [facility]. provides no warranty or guarantee of the accuracy or completeness of information in this document.
== END | disposition home or self-care (01) ==
LOC: CT 06:13
PROVIDERS: PCP Physician Assistant
DX: R68.89 Other general symptoms and signs (principal); R41.3 Other amnesia; G47.33 Obstructive sleep apnea (adult) (pediatric); I67.1 Cerebral aneurysm, nonruptured
CPT/HCPCS: 70450

== ENCOUNTER 2024-12-27 11:16 | Emergency (ER) | payer OTHER, SELFPAY ==
[2024-12-27] VITALS (13 sets, daily range): BP systolic 113–192; BP diastolic 58–113; PULSE 47–78; RESP 13–24; TEMP 36.8; O2SAT 93–98; BMI 30.2
--- NOTE | 2024-12-27 11:38 | EKG12_ITS ---
Test Reason : AMS Blood Pressure : */* mmHG Vent. Rate : 47 BPM Atrial Rate : 47 BPM P-R Int : 174 ms QRS Dur : 84 ms QT Int : 468 ms P-R-T Axes : 65 53 61 degrees QTcB Int : 414 ms Sinus bradycardia Otherwise normal ECG Confirmed by Jake Truong ([id number]), newspaper or periodical editor HAROON ORANTES ([id number]) on 12/29/2024 11:49:39 AM Referred By: Confirmed By: Jake Truong
[2024-12-27 12:05] LABS: Mucous, Urine 0 SEEN /hpf (<or=2+); Red Blood Cells-Urine 0 SEEN /hpf (0-5); Squamous Epithelial Cells - UA 0 SEEN /hpf (5-10)
[2024-12-27 12:10] LABS: Color, Urine Yellow (Yellow); Glucose, Dipstick Normal (Normal); Ketone-Dipstick Negative (Negative); Leukocyte Esterase-Dipstick Negative /ul (Negative); Nitrite-Dipstick Negative (Negative); Occult Blood-Urine 10 /ul (Negative); Protein-Dipstick Negative (Negative); Specific Gravity, Urine 1.015 (1.002-1.030); Urine Bilirubin Dipstick Negative (Negative)
[2024-12-27 12:36] LABS: Hematocrit 45.8 % (37-47); Hemoglobin 14.9 g/dL (12.0-15.0); Immature Granulocytes Count 0.030 X10^3/uL (0.0-0.0); Mean Corp Hgb Conc 32.5 g/dL (32-36); Mean Corpuscular Volume 87.6 fL (81-99); Mean Platelet Vol. 11.0 fl (6.2-12.0); NRBC Flagged by Analyzer 0 % (0-5); POSITIVE COUNT YES; Platelet Count 154 K/mm3 (150-450); RBC Distribution Width CV 14.5 % (11.6-14.6); RBC Distribution Width SD 46.7 fl (35.1-43.9); Red Blood Count 5.23 M/mm3 (4.2-5.4); White Blood Count 8.1 K/mm3 (4.4-11.0)
[2024-12-27 12:59] LABS: Differential Indicated SCAN CRITERIA MET
[2024-12-27 13:00] LABS: Differential Comment SCANNED
--- NOTE | 2024-12-27 13:48 | EX.ED.DYSGE1 ---
HPI History of Present Illness Chief Complaint: Mental Status Change Detail of Chief Complaint: Change in mental status since last evening Informant: spouse/S.O. 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 states she normally is able to dress herself feed herself and carry on a conversation. Presently she is not able to do any of those. She is not awake or alert. She will open her eyes and say ouch to painful stimuli. She will follow simple commands with repeated stimulation. informed me this occurred earlier this year. She was admitted in July. That time she was admitted for paroxysmal atrial fibrillation, essential hypertension, hyperlipidemia, urinary tract infection, acute and syncope with collapse. During that admission she had an MRI which revealed no acute abnormalities. There was evidence of the previously treated supraclinoid aneurysm measuring 5.5 x 3.7 x 4.0 cm with surrounding edema. CT during that admission revealed interval increase in size of the right aneurysm with associated hemorrhage. Coil artifact was noted as well. There was no evidence of herniation or midline shift. No other history is available. Prior similar symptoms: Yes Recent Illness/Hospitalization: No [facility] Medical History (Updated 12/28/24 @ 08:[address] Sylvester Peters MD) Depression Former smoker Hypertension A-fib Glaucoma Hyperlipidemia Obesity GERD (gastroesophageal reflux disease) Essential (primary) hypertension Paroxysmal atrial fibrillation Home Medications ?Medication ?Instructions ?Recorded ?Last Taken ?Type Adrenal 200 mg PO DAILY supplement 04/30/16 07/08/16 History multivitamin 1 ea PO DAILY 04/30/16 07/08/16 History lactobacillus combination no.8 3 3,000 mmu cells PO DAILY 09/22/18 Unknown History billion cell capsule (Adult Probiotic) calcium carb-ergocalciferol (vit 1 tab PO TID 09/19/19 Unknown History D2) 500 mg-125 unit tablet latanoprost 0.005 % eye drops 1 drp ophthalmic (eye) DAILY 09/19/19 Unknown History simvastatin 10 mg tablet 10 mg PO QHS 09/19/19 Unknown History brimonidine 0.2 %-timolol 0.5 % 1 drp ophthalmic (eye) Q12H 05/29/23 Unknown History eye drops dorzolamide 22.3 mg-timolol 6.8 1 drp ophthalmic (eye) BID 10/09/23 Unknown History mg/mL eye drops metoprolol succinate 50 mg 25 mg PO DAILY 10/09/23 Unknown History tablet,extended release 24 hr flecainide 50 mg tablet See Rx Instructions .Route 02/01/24 Unknown Rx .COMPLEX #180 tabs aspirin 325 mg tablet,delayed 325 mg PO DAILY 07/25/24 Unknown History release levetiracetam 500 mg tablet 500 mg PO BID 12/27/24 Unknown History sennosides 8.6 mg tablet (senna) 8.6 mg PO DAILY 12/27/24 Unknown History sertraline 50 mg tablet 50 mg PO DAILY 12/27/24 Unknown History Allergy/AdvReac Type Severity Reaction Status Date / Time lisinopril Allergy Unknown Verified 12/27/24 11:18 silver sulfadiazine (From Allergy Unknown Verified 12/27/24 11:18 Silvadene) Family History Father Hypertension Diabetes Mother Hypertension Cancer lung cancer Brother Hypertension Surgical History S/P coil embolization of cerebral aneurysm History of left heart catheterization (05/05/16) History of cholecystectomy Social History Smoking Status: Former smoker alcohol intake: never substance use type: does not use caffeine: Yes Type: coffee Number of servings: 1 eating out: 1-3 times/week what type of physical activity do you participate in: other details: fit board frequency: daily duration: 30-45 minutes/day seatbelt use: always do you feel safe at home: Yes ROS ROS ED Review of Systems ROS Unobtainable: due to mental status EXAM Physical Exam Const Vital Signs: 12/27/24 11:18 12/27/24 12:32 12/27/24 13:00 Temperature 98.3 F Temperature Source Oral Pulse Rate 48 L 48 L 47 L Respiratory Rate 13 24 H Blood Pressure 192/70 H 169/61 H 160/58 H Blood Pressure Mean 110 97 92 Pulse Ox 93 98 Oxygen Delivery Method Room Air Room Air 12/27/24 14:08 12/27/24 15:00 12/27/24 16:00 Temperature Temperature Source Pulse Rate 48 L 53 L Respiratory Rate 18 18 Blood Pressure 145/113 H 148/58 H 125/101 H Blood Pressure Mean 123 88 109 Pulse Ox 97 97 Oxygen Delivery Method Room Air Room Air 12/27/24 18:00 12/27/24 19:00 12/27/24 20:00 Temperature Temperature Source Pulse Rate 78 78 Respiratory Rate 16 16 Blood Pressure 148/76 H 132/76 H 123/58 H Blood Pressure Mean 100 94 79 Pulse Ox 98 98 Oxygen Delivery Method Room Air Room Air 12/27/24 21:00 12/27/24 21:30 12/27/24 22:00 Temperature Temperature Source Pulse Rate 63 62 65 Respiratory Rate 18 18 18 Blood Pressure 113/69 117/69 Blood Pressure Mean 83 85 Pulse Ox 97 98 98 Oxygen Delivery Method Room Air Room Air Room Air 12/27/24 23:00 12/28/24 00:00 12/28/24 01:00 Temperature Temperature Source Pulse Rate 61 53 L 51 L Respiratory Rate 18 18 16 Blood Pressure 125/78 H 125/58 H 122/57 H Blood Pressure Mean 93 80 78 Pulse Ox 98 98 98 Oxygen Delivery Method Room Air Room Air Room Air 12/28/24 01:07 12/28/24 02:00 Temperature 98.4 F Temperature Source Pulse Rate 51 L 53 L Respiratory Rate 16 18 Blood Pressure 122/57 H Blood Pressure Mean 78 Pulse Ox 97 98 Oxygen Delivery Method Room Air Positive well nourished and well developed General Appearance ED: well developed and NAD; Negative for cyanotic, diaphoretic or pallor HEENT Reports moist mucous membranes HEENT Narrative: Head is atraumatic normocephalic. Ears normal. Nares pain. Posterior pharynx is normal. Eyes PERRL and EOMs intact bilaterally Eyes Narrative: There is no nystagmus. Patient is blind. Conjunctive is pink. General Eye ED: Negative for pale conjunctiva or scleral icterus Neck no lymphadenopathy, supple and no JVD Chest Wall inspection of chest normal and palpation of chest normal Resp normal respiratory effort and clear to auscultation bilaterally Cardio regular rhythm and no murmurs Rate: bradycardia GI normal to inspection, nondistended, normoactive bowel sounds, non-tender, non-distended and no masses; Negative for hepatosplenomegaly Back/Spine no CVA tenderness Extremity normal to inspection General Extremety ED: Negative for edema or tenderness General Extremity: Negative for edema Neuro No oriented x3, CN's II-XII intact bilaterally and no sensory deficits noted Neuro Narrative: Patient disoriented to time and place. Sensorium / Orientation: Negative for alert Psych Psych Narrative: Unable to determine Skin no rashes or lesions noted, no wounds and skin turgor normal General Skin Exam: elasticity normal; Negative for jaundice or pallor MDM MDM MDM Narrative Medical decision making narrative: Patient with altered mental status. Since the apparent cause earlier this year was UTI we will do a metabolic infectious workup. History is very limited and exam is limited because of patient's altered mental status. Lab Data Attestation: I reviewed the patient's lab results. Lab results narrative: CBC is unremarkable. Urinalysis is negative for evidence of infection. Labs: Laboratory Results - last 24 hr 12/27/24 12/27/24 12/27/24 12:00 12:24 13:54 WBC 8.1 RBC 5.23 Hgb 14.9 Hct 45.8 MCV 87.6 MCH 28.5 MCHC 32.5 RDW Std Deviation 46.7 H RDW Coeff of Mika 14.5 Plt Count 154 MPV 11.0 Immature Gran % (Auto) 0.400 Neut % (Auto) 85.4 H Lymph % (Auto) 10.8 L [place] % (Auto) 2.5 Eos % (Auto) 0.4 Baso % (Auto) 0.5 Absolute Neuts (auto) 6.9 Absolute Lymphs (auto) 0.87 Nucleated RBC % 0 Differential Comment SCANNED Sodium 137 Potassium 4.7 Chloride 105 Carbon Dioxide 19.1 L Anion Gap 13 BUN 16 Creatinine 0.84 Estim Creat Clear Calc 67.92 Est GFR (MDRD) Non-Af 76 BUN/Creatinine Ratio 19.4 Glucose 131 H Lactic Acid Cancelled < 1.0 Calcium 9.6 Total Bilirubin 0.69 AST 24 ALT 12 Alkaline Phosphatase 98 Total Protein 7.2 Albumin 4.1 Globulin 3.2 Albumin/Globulin Ratio 1.3 Urine Color Yellow Urine Clarity Clear Urine pH 7.0 Ur Specific [place] 1.015 Urine Protein Negative Urine Glucose (UA) Normal Urine Ketones Negative Urine Occult Blood 10 H Urine Nitrite Negative Urine Bilirubin Negative Urine Urobilinogen Normal Ur Leukocyte Esterase Negative Urine RBC 0 SEEN Urine WBC 0 SEEN Ur Squamous Epith Cells 0 SEEN Urine Bacteria 0 SEEN Urine Mucus 0 SEEN Radiography Diagnostic Testing: Clinical Impression(s) from Imaging Studies Brain CT 12/27/24 14:15 IMPRESSION: 1. Large, heterogeneous lesion which appears to arise from the skull base/parasellar region. Differential diagnosis includes vascular malformation (such as AVM), benign lesion such as craniopharyngioma, meningioma, or neoplasm such as metastasis or chondrosarcoma. Follow-up MRI brain with and without contrast is recommended for further evaluation. 2. Stable moderate mass effect upon the lateral ventricles and 3rd ventricle. No obvious descending herniation. 3. Cortical lucency within the left frontal calvarium, which can be further evaluated on MRI brain. Dr. Gibson discussed these findings via telephone with Dr. Peters at 2:46 p.m. on 12/27/2024. 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 Associated mass-effect and mild parenchymal edema, with slight gradual increase in size comparing back to the 07/26/2024 MRI, and substantially increased comparing back to the most recent posttreatment CTA exam 10/09/2023. CT angiography would be able to better delineate its origin and if there is active flow within the collection and to what degree, which cannot be adequately assessed on MRI. Clinical correlation recommended and suggest neurovascular IR consultation. Reading Location: [facility] EKG Initial EKG: Attestation: I personally reviewed and interpreted this EKG as follows: Interpretation: Sinus Bradycardia (Rate is 47. The EKG is otherwise normal. OK was under 74 ms. Cures duration 84 ms. QT duration 468 ms. [place] is normal.) Treatment and Re-Evaluation :: Based on review of prior records and the fact that the aneurysm apparently had appeared larger on CAT scan even though they reported no significant change on MRI we will obtain CT to determine if there is any abnormality would explain her altered mental status since at this point there is no obvious metabolic or infectious cause. Patient has a large calcified aneurysm with coiling noted. This appears unchanged from November 17, 2024. I received a call from the radiologist who read the film. She is concerned the patient has a mass possibly a meningioma with hemorrhage. Patient had a prior CAT scan that was read as possible hemorrhage followed by an MRI. She recommended an MRI with and without contrast. Family member informing that she was recently seen by neurology up in [place]. There is concern when she spaces out that she may be having seizures. This may represent status absence seizure. Since she is presently on Keppra 500 mg twice daily will obtain a level and she will receive 1 g of Keppra IV piggyback since she is presently on Keppra. If this is status epilepticus due to absence type seizures she will require transfer and 24-hour EEG monitoring, which is not available at [facility]. Family member states they have gone through this before. They would like for us to contact the neurosurgeon at [facility] Dr. Wick (SP). Will get proper spelling Case was turned over to Dr. Almodovar. Will speak with [facility] prior to transfer of care so they are aware of concerns and possible need for transfer. Spoke with the nurse at [facility] transfer line. She was made aware of patient's history, physical findings and concerns. She was told that the CT from November [address] from today were sent. Once the images from the MRI have been developed they will be sent as well for neurosurgery to review. Comments:: Since the patient's blood pressure is not elevated with the bradycardia doubt this is a [place] response due to the potential hemorrhage that was noted on CT by radiologist. 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, Giant intracranial aneurysm, Nondiabetic hyperglycemia, Metabolic acidosis Prescriptions: No Action Adult Probiotic 3 billion cell capsule 3,000 mmu cells PO DAILY latanoprost 0.005 % drops 1 drp OPHTHALMIC DAILY simvastatin 10 mg tablet 10 mg PO QHS Patient Comments: TAKE ONE TABLET WITH EVENING MEAL OR AT BEDTIME calcium carbonate-vitamin D2 500-125 mg-unit tablet 1 tab PO TID Adrenal 200 mg PO DAILY multivitamin 1 EACH tablet 1 ea PO DAILY brimonidine-timolol 0.2-0.5 % drops 1 drp ophthalmic (eye) Q12H Patient Comments: INSTILL 1 DROP INTO BOTH EYES TWICE A DAY sennosides [senna] 8.6 mg tablet 8.6 mg PO DAILY levetiracetam 500 mg tablet 500 mg PO BID sertraline 50 mg tablet 50 mg PO DAILY dorzolamide-timolol 22.3-6.8 mg/mL drops 1 drp ophthalmic (eye) BID metoprolol succinate 50 mg tablet extended release 24 hr 25 mg PO DAILY Patient Comments: pt. has on list sina nassar is unsure as to why she is not supposed to take aspirin 325 mg tablet,delayed release (DR/EC) 325 mg PO DAILY flecainide 50 mg tablet See Rx Instructions .ROUTE .COMPLEX Qty: 180 3RF Dose Instruction: TAKE 1 TAB BY MOUTH EVERY 12 HOURS Rx Instructions: TAKE 1 TAB BY MOUTH EVERY 12 HOURS Primary Care Provider: Jessi Moy Referrals: Jessi Moy PA [Primary Care Provider] - Print Language: Tuvaluan Disposition Disposition: Acute Care Hospital Discharge Location: [facility] Neurosurgery Discharge Date/Time: 12/28/24 02:13
[2024-12-27 13:50] LABS: AST(SGOT) 24 U/L (<=31); Alanine Aminotransfer ALT/SGPT 12 U/L (<=34); Albumin, Serum 4.1 g/dL (3.4-4.8); Alkaline Phosphatase 98 U/L (35-104); Anion Gap 13 (5-15); BUN 16 mg/dL (4-19); BUN/Creat Ratio 19.4 RATIO (10-20); Calcium,Total 9.6 mg/dL (7.6-11.0); Carbon Dioxide 19.1 mmol/L (21.0-32.0); Chloride 105 mmol/L (98-108); Estimated Creatinine Clearance 67.92 ml/min (50-250); Globulin 3.2 g/dL (2.2-4.2); Glucose 131 mg/dL (70-99); Potassium 4.7 mmol/L (3.3-5.1)
--- NOTE | 2024-12-27 14:15 | CT_ITS ---
EXAM: BRAIN/HEAD WITHOUT CONTRAST CLINICAL HISTORY: 69 y/o F with ACUTE CHANGE IN MENTAL STATUS. COMPARISON: CT head 11/17/2024, with multiple priors dating back to July 2024. More remote prior imaging is not available (reports available only). TECHNIQUE: Routine CT imaging of the head without IV contrast. Additional multiplanar reformats were obtained. Dose reduction techniques were used including intermediate exposure control (AEC),iterative reconstruction technique, and/or mA and/or KV dose adjustments based on patient's size. FINDINGS: Prior coil embolization and stent placement within the region of the right supraclinoid ICA, with associated streak artifact, which limits evaluation. Stable, markedly enlarged heterogeneous lesion which appears to arise from the measuring 6.4 x 4.3 x 4.3 cm (TV x CC x AP, coronal image 26 and sagittal image 27). This is unchanged since most remote prior examination dated 07/26/2024. The lesion appears to arise from the skull base/parasellar region. Moderate mass and associated edema effect upon the adjacent right frontal lobe parenchyma. Unchanged mass effect upon the bilateral lateral ventricles ([id number]-left) and 3rd ventricle. The 4th ventricle is grossly patent. No obvious descending herniation. The orbits, visualized paranasal sinuses and mastoids are unremarkable. Cortical lucency within the left frontal calvarium (series 2, image 24). No acute calvarial fracture or scalp hematoma. CT/Brain/Head without Contrast IMPRESSION: 1. Large, heterogeneous lesion which appears to arise from the skull base/severo ellar region. Differential diagnosis includes vascular malformation (such as AVM), benign lesion such as craniopharyngioma, m eningioma, or neoplasm such as metastasis or chondrosarcoma. Follow-up MRI brain with and without contrast is recommended f or further evaluation. 2. Stable moderate mass effect upon the lateral ventricles and 3rd ventricle. No obvious descending herniation. 3. Cortical lucency within the left frontal calvarium, which can be further pito luated on MRI brain. Dr. Gibson discussed these findings via telephone with Dr. Peters at 2:46 p.m. on 12/27/2024. Reading Location: [id number]
--- NOTE | 2024-12-27 14:57 | MRI_ITS ---
PROCEDURE: BRAIN W/WO CONTRAST 12/27/2024 REASON FOR EXAM: AMS; concern for hemorrhagic mass on CT TECHNIQUE: Multiplanar and multisequential MRI of the brain was performed without and with IV gadolinium based contrast administration. CONTRAST: Clariscan VOLUME: 17 mL COMPARISON: Brain MRIs 07/26/2024, 05/29/2023. Multiple prior head CTs, most recently 12/27/2024. FINDINGS: Again noted is prior coil embolization and pipeline stent placement within the region of the right supraclinoid ICA, which are better appreciated on prior CT exams. Redemonstrated large amorphous predominantly intrinsically T1 hyperintense masslike collection which is epicentered at the suprasellar region, and marginates the previously treated right supraclinoid ICA, with associated susceptibility signal related to the internal blood products. There does not appear to be any associated enhancing soft tissue component to suggest an underlying mass lesion. This collection measures roughly 5.8 x 4.3 x 4.1 cm (TV, AP, CC), and appears slightly increased in overall size since the most recent brain MRI dated 07/26/2024, but grossly stable compared with more recent CTs. This is most likely a chronic self-contained giant aneurysm/pseudoaneurysm, although the vessel origin is unclear, but suspected to be from the supraclinoid right ICA which was previously treated. There is associated substantial mass-effect, with upward displacement of the anterior body/genu of corpus callosum, partial effacement of the anterior horns of the lateral ventricles, and compression of the anterior aspect of the 3rd ventricle. No evidence for developing hydrocephalus or ventricular entrapment. Mild marginal parenchymal edema within the bilateral frontal lobes not significantly changed. Effacement of the suprasellar cistern, with inferior displacement and compression of the optic chiasm and pituitary infundibulum. Slight inferior displacement of the fornices and mammillary bodies. No evidence of acute infarct. Heterogeneous diffusion restriction associated with the blood products within the large hemorrhagic collection. No mass or pathologic enhancement elsewhere within the brain. Grossly unremarkable orbits. Well-aerated paranasal sinuses. No mastoid effusions. MRI/Brain W/WO Contrast IMPRESSION: Redemonstrated large heterogeneous lobulated presumed residual/recurrent giant aneurysm or pseudoaneurysm epicentered in the suprasellar region, most likely arising from the previously treated supraclinoi d right ICA. Associated mass-effect and mild parenchymal edema, with slight gradual increase in size comparing back to the 0 07/26/2024 MRI, and substantially increased comparing back to the most recent posttreatment CTA exam 10/09/2023. CT angiog janice would be able to better delineate its origin and if there is active flow within the collection and to what degree, which can not be adequately assessed on MRI. Clinical correlation recommended and suggest neurovascular IR consultation. Reading Location: [id number]
[2024-12-27] MEDS: levETIRAcetam IV 1,000 MG/100 ML BAG 400 MG IV (15:30)
--- NOTE | 2024-12-27 22:01 | PCA ---
PT ACCEPTED AT [facility] [id number] [phone]
[2024-12-28] VITALS: BP 125/58; PULSE 53; RESP 18; O2SAT 98
[2024-12-28 01:00] VITALS: BP 122/57; PULSE 51; RESP 16; O2SAT 98
[2024-12-28 01:07] VITALS: BP 122/57; PULSE 51; RESP 16; TEMP 36.9; O2SAT 97
[2024-12-28 02:00] VITALS: PULSE 53; RESP 18; O2SAT 98
== END 2024-12-28 02:13 | disposition short-term general hospital (02) ==
PROVIDERS: Emergency Provider Emergency Medicine; PCP Physician Assistant; Visit Provider Emergency Medicine
DX: R41.82 Altered mental status, unspecified (principal); M31.6 Other giant cell arteritis; R00.1 Bradycardia, unspecified; E78.5 Hyperlipidemia, unspecified; I10 Essential (primary) hypertension; E87.20 Acidosis, unspecified; R73.9 Hyperglycemia, unspecified; Z79.82 Long term (current) use of aspirin; Z79.899 Other long term (current) drug therapy; Z87.891 Personal history of nicotine dependence
CPT/HCPCS: 70450; 70553; 80053; 81001; 82542; 83605; 85025; 93005; 96365; 96366; 99285; A9575; P9612; A4216